=== PATIENT | female | born 1985 | race Caucasian/White ===

== ENCOUNTER 2018-09-28 11:38 | Emergency (ER) | payer BC, SELFPAY ==
[2018-09-28 11:39] VITALS: BP 137/76; PULSE 85; RESP 16; TEMP 36.9; O2SAT 98; BMI 38.3
--- NOTE | 2018-09-28 12:00 | CT_ITS ---
STUDY: CT BRAIN WITHOUT CONTRAST REASON FOR EXAM: Female, 33 years old. Headache. RADIATION DOSAGE (If Supplied By Facility): CTDIvol = ( 44.99 ) mGy, DLP = ( 796.11 ) mGycm TECHNIQUE: Transaxial CT imaging of the brain was performed without administration of intravenous contrast material. Individualized dose optimization techniques were used for this CT. COMPARISON: None. FINDINGS: Normal soft tissue structures. Normal calvarium. Normal size ventricles and extra-axial spaces for the patient's age. Normal white matter tracts of the cerebral hemispheres. Normal basal ganglia and thalami. Normal brainstem. Normal cerebellum. There is no intracranial hemorrhage. There are no findings of an acute ischemic infarction. Normal visualized paranasal sinuses. CT/Brain/Head without Contrast IMPRESSION: Normal unenhanced CT scan of the brain. Electronically Signed: Miguel Wesley MD at 13:07 EST Tel [phone], Service support ,
[2018-09-28] MEDS: Ketorolac 30 MG/ML Syringe IV (12:14)
[2018-09-28] MEDS: DiphenhydrAMINE 50 MG/ML Syringe IV (12:14)
[2018-09-28] MEDS: Metoclopramide 10 MG/2 ML Vial IV (12:14)
[2018-09-28] MEDS: 0.9% Normal Saline 1,000 ML 999 ML IV (12:15)
--- NOTE | 2018-09-28 13:16 | ED.DCSUM_ITS ---
- ER Visit Summary Date of Service: 09/28/18 Chief Complaint: Headache History of Present Illness: The patient is a 33 F with no primary care physician. She reports that she woke up this morning with spots in her vision. She states that these have now resolved. However, she has a headache that began at the same time. Is gradually gotten worse. It was 10 out of 10 at worst and 6 out of 10 currently. She describes it as aching pain right side of her head as well as the right side of her face and jaw. States she has photophobia with it. She is taken ibuprofen without relief. She denies any recent injury to her head. No dental pain. No sensitivity to hot or cold temperatures. Physical Examination: Vitals: Stable. Afebrile. General: Well-nourished and well-developed. Head: Normocephalic atraumatic. Dental: No facial swelling or edema. No pain with percussion of her teeth. No focal abscess. No trismus. No edema of the floor of her mouth. Neck: Supple, no lymphadenopathy. No JVD. Nontender. Cardiovascular: Regular rate and rhythm. No murmurs. Respiratory: No respiratory distress. Clear to auscultation bilaterally. Abdominal: Soft, nontender, nondistended, normal bowel sounds. No guarding, rebound, or peritoneal signs. Back: Nontender. Extremities: Nontender, no edema. Skin: Normal color, no rash. Neurologic: Alert and oriented ?3. Cranial nerves II through XII are intact. Normal strength and sensation. Psych: Normal affect. Test Results: CT brain shows no acute disease. Emergency Department Course and Treatment: Patient was treated Toradol, Benadryl, and Reglan IV. She had significant relief. Treatment Plan: Patient will be discharged symptomatic care. Instructed for Dr. Deandre Snell 1-2 days if not improving. Does have a family history of migraines. She has not had a headache like this previously or been diagnosed with migraines. Return to the emergency department for any worsening symptoms. Disposition: To home in improved and stable condition. Impression: 1. Cephalgia. This note was generated with [employer] dictation software. It may contain incorrect words, spelling, and punctuation that were not noted in review of the chart prior to signing ED Disposition - Plan for ED Patient: Disposition: Home or Assisted Living Chief Complaint: Cellulitis Instructions: ED Cephalgia Unspecified Referrals: Deandre Snell MD [STAFF PHYSICIAN] - 1-2 Days if not improving
== END 2018-09-28 13:23 | disposition home or self-care (01) ==
PROVIDERS: Emergency Provider Emergency Medicine
DX: R51 Headache (principal); H53.149 Visual discomfort, unspecified; H53.8 Other visual disturbances; R11.0 Nausea
CPT/HCPCS: 70450; 96361; 96374; 96375; 99282; J7030; A4216

== ENCOUNTER 2022-10-20 18:57 | Emergency (ER) | payer MEDICAID, SELFPAY ==
[2022-10-20 18:59] VITALS: BP 128/95; PULSE 75; RESP 16; TEMP 36.8; O2SAT 100; BMI 38.0
[2022-10-20 19:27] LABS: Mucous, Urine 0 SEEN /hpf (<or=2+)
[2022-10-20 19:30] LABS: Absolute Lymphocyte Count 2.08 X10^3/uL (0.83-4.51); Basophil# 0.02 X10^3/uL; Basophil% 0.3 % (0-1); Color, Urine Yellow (Yellow); Eosinophil# 0.03 X10^3/uL; Eosinophils% 0.4 % (0-5); Glucose, Dipstick Normal (Normal); Hematocrit 41.5 % (37-47); Hemoglobin 13.7 g/dL (12.0-15.0); Ketone-Dipstick 5 mg/dl (Negative); Leukocyte Esterase-Dipstick 500 /ul (Negative); Lymphocyte # 2.08 X10^3/ul (0.83-4.51); Lymphocyte % 27.6 % (19-41); Mean Corpuscular Hgb 29.8 pg (27.0-32.0); Mean Corpuscular Volume 90.4 fL (81-99); Mean Platelet Vol. 11.1 fl (6.2-12.0); Monocyte# 0.37 X10^3/uL; Monocyte% 4.9 % (0-10); NRBC Flagged by Analyzer 0 % (0-5); Neutrophil # 5.01 X10^3/uL (2.7-7.7); Neutrophil % 66.5 % (47-70); Nitrite-Dipstick Negative (Negative); Occult Blood-Urine 25 /ul (Negative); Platelet Count 287 K/mm3 (150-450); Protein-Dipstick 30 mg/dl (Negative); RBC Distribution Width CV 12.1 % (11.6-14.6); RBC Distribution Width SD 40.1 fl (35.1-43.9); Red Blood Count 4.59 M/mm3 (4.2-5.4); Specific Gravity, Urine 1.025 (1.002-1.030); Urine Bilirubin Dipstick Negative (Negative); Urine Clarity Sl. Cloudy (Clear); Urine Urobilinogen Normal (Normal); White Blood Count 7.5 K/mm3 (4.4-11.0)
[2022-10-20 19:39] LABS: Internal QC Validated? YES +Cl - CLEAR BKGD; Pregnancy, Serum, hCG Quali. NEGATIVE Negative
[2022-10-20 19:44] LABS: Anion Gap 5 (5-15); BUN 13 mg/dL (7-18); BUN/Creat Ratio 13.1 RATIO (10-20); Calcium,Total 9.4 mg/dL (8.5-10.1); Chloride 109 mmol/L (98-107); Creatinine, Serum 0.99 mg/dL (0.55-1.02); EST Glomerular Filtration Rate 66 mL/min (>60); Est Glom Filt Rate - Afr Amer 80 mL/min (>60); Estimated Creatinine Clearance 63.74 ml/min; Glucose 105 mg/dL (74-106); Potassium 3.5 mmol/L (3.5-5.1); Sodium Level 141 mmol/L (136-145)
[2022-10-20 19:45] LABS: Red Blood Cells-Urine 0-5 SEEN /hpf (0-5); Squamous Epithelial Cells - UA 0-5 SEEN /hpf (5-10); White Blood Cells 0-5 SEEN /hpf (0-5)
[2022-10-20 19:46] LABS: Bacteria 1+ /hpf (None Seen)
--- NOTE | 2022-10-20 22:18 | CT_ITS ---
INDICATION: Nausea and vomiting. Intermittent pain for one month. EXAMINATION: CT ABDOMEN AND PELVIS WITH CONTRAST - CT Abdomen And Pelvis W/ Contrast Injection TECHNIQUE: Helically acquired images were obtained of the abdomen and pelvis following IV contrast. A radiation dose optimization technique was used for this scan. IV Contrast dosage and agent: 100 mL of Isovue 370 Oral contrast: None. COMPARISON: None. FINDINGS: LOWER CHEST: Lung bases are clear. No cardiomegaly or pericardial effusion. Question nodule in the lateral right lung breasts. LIVER: Mild hepatomegaly without focal mass. GALLBLADDER AND BILIARY TREE: Status post cholecystectomy. No intra- or extrahepatic biliary ductal dilation. PANCREAS: No focal cystic or solid mass. SPLEEN: Normal size without focal cystic or solid mass. ADRENAL GLANDS: No nodules. KIDNEYS AND URETERS: Normal renal size and position. No hydronephrosis. Normal visualized ureters. PERITONEUM: No ascites or free air. No other fluid collection. BOWEL: Normal stomach. Normal small bowel. Normal colon. Normal appendix. LYMPH NODES: No enlarged mesenteric or retroperitoneal lymph nodes. VESSELS: Normal abdominal aorta. Normal IVC. URINARY BLADDER: Unremarkable. REPRODUCTIVE ORGANS: Normal uterus. No adnexal mass. ABDOMINAL WALL: Small umbilical hernia of omental fat. The abdominal wall is otherwise unremarkable. BONES: No lytic or blastic abnormality. CT/Abdomen/Pelvis W IV Cont ONLY IMPRESSION: 1. Mild hepatomegaly without focal mass. 2. Otherwise normal CT of the abdomen and pelvis. 3. Question nodular density in the lateral right lung breast. Correlation with ultrasound could be performed on a nonemergent basis if there is clinical concern. Electronically Signed: Rolo Hudson DO at 22:39 EST ,
--- NOTE | 2022-10-20 22:19 | ED.VIS.GI ---
HPI HPI - GI History of Present Illness Chief Complaint: Abd Pain Narrative Narrative: 37-year-old female who denies significant past medical history presents with epigastric and lower quadrant abdominal pain that she has had for the last month. She states she becomes nauseated every time she eats. Yesterday she had epigastric pain and became nauseated. She was able to eat today. She had a taco at 6 PM. She states she had an episode like this 2 years ago where she lost a lot of weight because of it. However, she feels it starting up again over the last month but has not noticed any significant weight loss. She presents because of the nausea when she eats and the pain. She denies any fever or chills. No dysuria or hematuria, no other symptoms. PFSH PFSH Home Medications ondansetron 4 mg disintegrating tablet 4 mg PO Q6H PRN nausea and vomiting #20 tabs 10/20/22 [Rx Last Taken Unknown] Allergy/AdvReac Type Severity Reaction Status Date / Time No Known Allergies Allergy Verified 10/20/22 19:01 Social History Smoking Status: Current every day smoker tobacco type: e-cigarettes ROS ROS ED ROS Narrative Constitutional: No fever, no chills. HEENT: No sore throat. No neck pain. No loss of vision. No rhinorrhea. Cardiovascular: No chest pain. No palpitations. No pedal edema. Respiratory: No cough, no shortness of breath. Abdominal: Epigastric and bilateral flank/lower quadrant abdominal pain. Positive nausea. No vomiting. Genitourinary: No dysuria. No hematuria. Musculoskeletal: No myalgias. No arthralgias. Neurologic: No headaches. No dizziness. No lightheadedness. Skin: No rash. No change in color. Psychiatric: No depression. No anxiety. EXAM Physical Exam Narrative Exam Narrative: Afebrile. Vital signs noted. HEENT: Normocephalic. Atraumatic. PERRL, EOMI. Neck soft and supple. No point tenderness or step off. Cardiovascular: Regular rate and rhythm. No murmurs, rubs, or gallops appreciated. Respiratory: No tachypnea. Lungs clear to auscultation bilaterally. Gastrointestinal: Abdomen soft, nontender, with normoactive bowel sounds. No rebound or guarding. Neurological: Awake. Alert. Nonfocal, nonlateralizing. Skin: No rash. Normal color. No pallor. Musculoskeletal: No pedal edema. Full range of motion extremities. Const Vital Signs: 10/20/22 18:59 Temperature 98.2 F Temperature Source Temporal Pulse Rate 75 Respiratory Rate 16 Blood Pressure 128/95 H Blood Pressure Mean 106 Pulse Ox 100 Oxygen Delivery Method Room Air MDM MDM MDM Narrative Medical decision making narrative: Patient has a nonsurgical abdomen. Nursing protocol labs were obtained. CBC shows normal white count of 7.5, hemoglobin 13.7, normal platelet count of 287. Electrolyte panel shows chloride elevated at 109 but normal creatinine and normal BUN. Glucose appropriately elevated at 105 with a normal anion gap. Serum is negative. I will add LFTs and a lipase. I will obtain CT imaging to look for any acute pathology. I discussed with her the possibility of GERD and gastritis. She was told she may need follow-up with her primary care physician. She states she made an appointment for 2 weeks from now, but it was unsure if she could make it until then because of her nausea with eating. She was also told that she may need follow-up with gastroenterology. Urinalysis is negative for infection. Lipase is normal, LFTs are grossly unremarkable except for slightly elevated ALT of 58 which I think is nonspecific. At this point in time, I wrote her for Zofran and she will take [id number] Pepcid or Prilosec. I feel she be discharged safely home with follow-up. Return instructions were reviewed. Disposition is discharged home in stable condition. Lab Data Attestation: I reviewed the patient's lab results. Labs: Laboratory Results - last 24 hr 10/20/22 10/20/22 10/20/22 19:15 19:15 19:15 WBC 7.5 RBC 4.59 Hgb 13.7 Hct 41.5 MCV 90.4 MCH 29.8 MCHC 33.0 RDW Std Deviation 40.1 RDW Coeff of José 12.1 Plt Count 287 MPV 11.1 Immature Gran % (Auto) 0.300 Neut % (Auto) 66.5 Lymph % (Auto) 27.6 [place] % (Auto) 4.9 Eos % (Auto) 0.4 Baso % (Auto) 0.3 Absolute Neuts (auto) 5.0 Absolute Lymphs (auto) 2.08 Nucleated RBC % 0 Sodium 141 Potassium 3.5 Chloride 109 H Carbon Dioxide 27.0 Anion Gap 5 BUN 13 Creatinine 0.99 Estim Creat Clear Calc 63.74 Est GFR (MDRD) Af Amer 80 Est GFR (MDRD) Non-Af 66 BUN/Creatinine Ratio 13.1 Glucose 105 Calcium 9.4 Total Bilirubin Direct Bilirubin AST ALT Alkaline Phosphatase Total Protein Albumin Globulin Lipase Serum , Qual NEGATIVE Urine Color Urine Clarity Urine pH Ur Specific [place] Urine Protein Urine Glucose (UA) Urine Ketones Urine Occult Blood Urine Nitrite Urine Bilirubin Urine Urobilinogen Ur Leukocyte Esterase Urine RBC Urine WBC Ur Squamous Epith Cells Urine Bacteria Urine Mucus 10/20/22 10/20/22 10/20/22 19:15 19:15 19:15 WBC RBC Hgb Hct MCV MCH MCHC RDW Std Deviation RDW Coeff of José Plt Count MPV Immature Gran % (Auto) Neut % (Auto) Lymph % (Auto) [place] % (Auto) Eos % (Auto) Baso % (Auto) Absolute Neuts (auto) Absolute Lymphs (auto) Nucleated RBC % Sodium Potassium Chloride Carbon Dioxide Anion Gap BUN Creatinine Estim Creat Clear Calc Est GFR (MDRD) Af Amer Est GFR (MDRD) Non-Af BUN/Creatinine Ratio Glucose Calcium Total Bilirubin 0.30 Direct Bilirubin 0.10 AST 21 ALT 58 H Alkaline Phosphatase 50 Total Protein 7.7 Albumin 3.9 Globulin 3.8 Lipase 166 Serum , Qual Urine Color Yellow Urine Clarity Sl. Cloudy Urine pH 5.0 Ur Specific [place] 1.025 Urine Protein 30 H Urine Glucose (UA) Normal Urine Ketones 5 H Urine Occult Blood 25 H Urine Nitrite Negative Urine Bilirubin Negative Urine Urobilinogen Normal Ur Leukocyte Esterase 500 H Urine RBC 0-5 SEEN Urine WBC 0-5 SEEN Ur Squamous Epith Cells 0-5 SEEN Urine Bacteria 1+ Urine Mucus 0 SEEN Radiography Diagnostic Testing: Clinical Impression(s) from Imaging Studies Abdomen/Pelvis CT 10/20/22 22:18 IMPRESSION: 1. Mild hepatomegaly without focal mass. 2. Otherwise normal CT of the abdomen and pelvis. 3. Question nodular density in the lateral right lung breast. Correlation with ultrasound could be performed on a nonemergent basis if there is clinical concern. Electronically Signed: Rolo Hudson DO at 22:39 EST , Discharge Plan Triage Chief Complaint: Abd Pain ED Provider: Sajan Koch Dx/Rx/DC Orders Clinical Impression: Abdominal pain, Nausea, Abnormal CT scan Instructions: ED Abdominal Pain Unkn Cause Fem Prescriptions: New ondansetron 4 mg tablet,disintegrating 4 mg PO Q6H PRN (Reason: nausea and vomiting) Qty: 20 0RF Primary Care Provider: Brook Gaviria Referrals: Adilson Cobb DO [Med Staff - Active Staff] - As soon as possible Brook Gaviria MD [Primary Care Provider] - Keep Jared appointment Activity Restrictions/Additional Instructions: Follow-up with your primary care physician as soon as possible. Start a clear liquid diet and advance as tolerated. Avoid spicy foods. You may want to start [id number] Pepcid or Prilosec daily. Additionally, you had an abnormal CT scan finding. There is questionable density possibly in the right breast. Outpatient nonemergent ultrasound can be used for follow-up as ordered by your primary care physician. Mention this during her scheduled appointment. Disposition Disposition: Home, Self Care
[2022-10-20 22:51] LABS: AST(SGOT) 21 U/L (15-37); Alanine Aminotransfer ALT/SGPT 58 U/L (13-56); Albumin, Serum 3.9 g/dL (3.2-5.0); Alkaline Phosphatase 50 U/L (45-117); Globulin 3.8 g/dL (2.2-4.2); Protein, Total 7.7 g/dL (6.4-8.2)
[2022-10-20 22:55] LABS: Lipase 166 U/L (73-393)
[2022-10-20 23:00] VITALS: PULSE 75; RESP 15; O2SAT 97
== END 2022-10-20 23:28 | disposition home or self-care (01) ==
PROVIDERS: Emergency Provider Emergency Medicine; PCP Internal Medicine; Visit Provider Emergency Medicine
DX: R10.13 Epigastric pain (principal); R11.0 Nausea; F17.290 Nicotine dependence, other tobacco product, uncomplicated; R10.30 Lower abdominal pain, unspecified
CPT/HCPCS: 74177; 80048; 80076; 81001; 83690; 84703; 85025; 99283; Q9967; A4216

== ENCOUNTER → 2022-12-08 | Outpatient (CLI) | payer MEDICAID, SELFPAY ==
--- NOTE | 2022-12-08 07:44 | US_ITS ---
STUDY: ABDOMINAL ULTRASOUND - RIGHT UPPER QUADRANT REASON FOR VISIT: Female, 37 years old . Hepatomegaly. TECHNIQUE: Ultrasound evaluation of the right upper quadrant was performed with real-time and static mack-scale imaging. TECHNICAL QUALITY: Adequate. COMPARISON: None. FINDINGS: Liver: The liver is enlarged and measures 20 cm. There is increased echogenicity consistent with fatty infiltration. The bile ducts are within normal limits. There is hepatic color flow. The direction of portal flow is hepatopetal. There is no demonstrated mass lesion. Gallbladder: The patient is status post cholecystectomy. Common Bile Duct (C.B.D.): The common bile duct measures 5.1 mm. Pancreas: Normal size of the head, body of the pancreas. The tail portion is obscured due to overlying bowel gas. There is normal echogenicity of the pancreas. There is no demonstrated pancreatic mass or cyst. Right Kidney: Normal size of the right kidney. The right kidney measures 11.7 cm x 6.4 cm x 4.1 cm. Normal renal cortex. The right cortex measures 1.2 cm. There is no demonstrated renal mass or cyst. There is no right hydronephrosis. US/Abdomen Limited IMPRESSION: Hepatomegaly and fatty infiltration of the liver. The patient is status post cholecystectomy. Electronically Signed: Miguel Wesley MD at 10:34 EST ,
--- NOTE | 2022-12-08 07:44 | US_ITS ---
STUDY: ABDOMINAL ULTRASOUND - ELASTOGRAPHY REASON FOR VISIT: Female, 37 years old. Hepatomegaly. Nausea. TECHNIQUE: Liver stiffness measurements were obtained on a [employer] RS 85 ultrasound machine using a CA 1-7 probe following the SRU guidelines. 3 measurements were obtained using a 2-D-SWE method. The IQR/M was 19% suggesting a quality data set. TECHNICAL QUALITY: Adequate. COMPARISON: Comparison is made with prior sonogram done earlier today. FINDINGS: Liver: There is evidence of hepatomegaly and fatty infiltration of the liver. Median liver stiffness measured 6.4 kPa. US/Elastography Parenchyma/Organ IMPRESSION: Liver stiffness measures 6.4 kPa compatible with F2-F3 (Mild to moderate liver fibrosis) Metavir score. Electronically Signed: Miguel Wesley MD at 10:36 EST ,
[2022-12-08 09:04] LABS: International Normalized Ratio 1.1; Prothrombin Time (Protime)PT. 13.5 SECONDS (11.7-14.9)
[2022-12-08 09:05] LABS: Absolute Lymphocyte Count 1.54 X10^3/uL (0.83-4.51); Absolute Neutrophil Count 4.5 X10^3/uL (2.0-7.7); Basophil# 0.02 X10^3/uL; Basophil% 0.3 % (0-1); Eosinophil# 0.05 X10^3/uL; Eosinophils% 0.8 % (0-5); Hematocrit 42.1 % (37-47); Hemoglobin 13.7 g/dL (12.0-15.0); Lymphocyte # 1.54 X10^3/ul (0.83-4.51); Lymphocyte % 23.8 % (19-41); Mean Corp Hgb Conc 32.5 g/dL (32-36); Mean Corpuscular Hgb 30.2 pg (27.0-32.0); Mean Corpuscular Volume 92.9 fL (81-99); Mean Platelet Vol. 11.2 fl (6.2-12.0); Monocyte# 0.31 X10^3/uL; Monocyte% 4.8 % (0-10); NRBC Flagged by Analyzer 0 % (0-5); Neutrophil # 4.51 X10^3/uL (2.7-7.7); Neutrophil % 69.7 % (47-70); Platelet Count 293 K/mm3 (150-450); RBC Distribution Width CV 12.4 % (11.6-14.6); RBC Distribution Width SD 42.4 fl (35.1-43.9); Red Blood Count 4.53 M/mm3 (4.2-5.4); White Blood Count 6.5 K/mm3 (4.4-11.0)
[2022-12-08 09:12] LABS: Hemoglobin A1c 5.1 % (3.8-5.6)
[2022-12-08 09:18] LABS: Erythrocyte Sedimentation Rate 9 mm/hr (0-30)
[2022-12-08 09:30] LABS: ALB/GLOB Ratio 0.9 RATIO (0.9-2.4); AST(SGOT) 13 U/L (15-37); Alanine Aminotransfer ALT/SGPT 30 U/L (13-56); Albumin, Serum 3.6 g/dL (3.2-5.0); Alkaline Phosphatase 55 U/L (45-117); Anion Gap 6 (5-15); BUN 12 mg/dL (7-18); BUN/Creat Ratio 12.7 RATIO (10-20); CRP 4.72 mg/L (0.0-3.0); Calcium,Total 9.2 mg/dL (8.5-10.1); Chloride 109 mmol/L (98-107); Creatinine, Serum 0.95 mg/dL (0.55-1.02); EST Glomerular Filtration Rate 70 mL/min (>60); Est Glom Filt Rate - Afr Amer 85 mL/min (>60); Ferritin 77 ng/mL (8-252); Glucose 104 mg/dL (74-106); LDH 179 U/L (84-246); Potassium 4.1 mmol/L (3.5-5.1); Protein, Total 7.6 g/dL (6.4-8.2); Sodium Level 140 mmol/L (136-145)
[2022-12-08 09:56] LABS: HIV - WCH Non-Reactive (Nonreactive)
[2022-12-09 14:09] LABS: Anti-Centromere B Ab <0.2 AI (0.0-0.9); Anti-Chromatin <0.2 AI (0.0-0.9); Anti-Jo <0.2 AI (0.0-0.9); Anti-Scleroderma-70 AB <0.2 AI (0.0-0.9); RNP Ab <0.2 AI (0.0-0.9); SJOGREN'S Anti-SS-A test 0.2 AI (0.0-0.9); SJOGREN'S Anti-SS-B test < 0.2 AI (0.0-0.9); Smith Ab <0.2 AI (0.0-0.9)
[2022-12-09 17:19] LABS: Anti-Mitochondrial AB <20.0 Units (0.0-20.0); Anti-dsDNA Ab <1 IU/mL (0-9)
[2022-12-10 22:06] LABS: Angiotensin Convert Enzyme 28 U/L (14-82); Ceruloplasmin 40.7 mg/dL (19.0-39.0); Cytoplasmic Ab (C-ANCA) <1:20 titer (Neg:<1:20); HEPATITIS B SURFACE AG Negative (Negative); Hep C Antibodies Non Reactive (Non Reactive); Hepatitis A IgM Antibody Negative (Negative); Hepatitis B Core AB IgM Negative (Negative)
[2022-12-10 22:21] LABS: AFP, Tumor Marker 3.2 ng/mL (0.0-6.4); Anti-Smooth Muscle ABS 4 Units (0-19); Copper, Serum or Plasma 162 ug/dL (80-158); Haptoglobin 144 mg/dL (33-278); Perinuclear Ab (P-ANCA) <1:20 titer (Neg:<1:20)
== END | disposition home or self-care (01) ==
PROVIDERS: PCP Internal Medicine; Visit Provider Internal Medicine Gastroenterology
DX: R16.0 Hepatomegaly, not elsewhere classified (principal); R11.0 Nausea; K76.0 Fatty (change of) liver, not elsewhere classified; Z90.49 Acquired absence of other specified parts of digestive tract
CPT/HCPCS: 36415; 76705; 76981; 80053; 80074; 82105; 82140; 82164; 82390; 82525; 82728; 83010; 83036; 83516; 83615; 85025; 85610; 85652; 86140; 86225; 86235; 86256; 86703

== ENCOUNTER → 2022-12-12 | Outpatient (CLI) | payer MEDICAID, SELFPAY ==
--- NOTE | 2022-12-12 11:45 | NM_ITS ---
CLINICAL: 37-year-old female with history of chronic nausea. SEMI-SOLID PHASE 99m Tc SULFUR COLLOID GASTRIC EMPTYING STUDY COMPARISON: Abdominal ultrasound report 12/08/2022 FINDINGS: The patient was administered 1.2 mCi of 99m Tc sulfur colloid mixed with oatmeal and consumed per os. Image acquisitions in the anterior-posterior projections were obtained for 60 minutes. There is prompt visualization of the stomach. There is no gastroesophageal reflux identified. The T ? raw data emptying was calculated to be 31.73 minutes, (Normal: 12-56 minutes). NM/Gastric Emptying Study IMPRESSION: 1. NORMAL 99m Tc sulfur colloid semi-solid phase (oatmeal) gastric emptying imaging examination. A. There is normal and preserved semi-solid phase gastric emptying compared to normal controls. (Narciso et al, J Nucl Med Tech 38: 186, 2010). Electronically Signed: Brandin Tang, at 20:38 EST ,
== END | disposition home or self-care (01) ==
LOC: NM 11:45
PROVIDERS: PCP Internal Medicine; Visit Provider Internal Medicine Gastroenterology
DX: R11.0 Nausea (principal)
CPT/HCPCS: 78264; A9541

== ENCOUNTER 2022-12-28 22:56 | Emergency (ER) | payer MEDICAID, SELFPAY ==
[2022-12-28 22:56] VITALS: BP 129/99; PULSE 77; RESP 16; TEMP 36.6; O2SAT 100; BMI 36.5
[2022-12-29] MEDS: Ketorolac 30 MG/ML Syringe IV (00:09)
[2022-12-29] MEDS: 0.9% Normal Saline 1,000 ML 999 ML IV (00:09)
[2022-12-29 00:19] LABS: Absolute Lymphocyte Count 2.95 X10^3/uL (0.83-4.51); Absolute Neutrophil Count 6.2 X10^3/uL (2.0-7.7); Basophil# 0.05 X10^3/uL; Basophil% 0.5 % (0-1); Eosinophil# 0.06 X10^3/uL; Eosinophils% 0.6 % (0-5); Hematocrit 42.8 % (37-47); Hemoglobin 13.9 g/dL (12.0-15.0); Lymphocyte # 2.95 X10^3/ul (0.83-4.51); Lymphocyte % 30.4 % (19-41); Mean Corp Hgb Conc 32.5 g/dL (32-36); Mean Corpuscular Hgb 29.8 pg (27.0-32.0); Mean Corpuscular Volume 91.8 fL (81-99); Mean Platelet Vol. 10.3 fl (6.2-12.0); Monocyte# 0.42 X10^3/uL; Monocyte% 4.3 % (0-10); NRBC Flagged by Analyzer 0 % (0-5); Neutrophil % 63.9 % (47-70); Platelet Count 327 K/mm3 (150-450); RBC Distribution Width CV 12.4 % (11.6-14.6); RBC Distribution Width SD 41.5 fl (35.1-43.9); Red Blood Count 4.66 M/mm3 (4.2-5.4); White Blood Count 9.7 K/mm3 (4.4-11.0)
[2022-12-29 00:41] LABS: Internal QC Validated? YES +Cl - CLEAR BKGD; Pregnancy, Serum, hCG Quali. NEGATIVE Negative
[2022-12-29 00:48] LABS: AST(SGOT) 8 U/L (15-37); Alanine Aminotransfer ALT/SGPT 20 U/L (13-56); Albumin, Serum 3.9 g/dL (3.2-5.0); Alkaline Phosphatase 51 U/L (45-117); Anion Gap 7 (5-15); BUN 14 mg/dL (7-18); BUN/Creat Ratio 16.6 RATIO (10-20); Bilirubin, Direct 0.11 mg/dL (0.00-0.30); Calcium,Total 9.2 mg/dL (8.5-10.1); Chloride 108 mmol/L (98-107); Creatinine, Serum 0.84 mg/dL (0.55-1.02); EST Glomerular Filtration Rate 80 mL/min (>60); Est Glom Filt Rate - Afr Amer 97 mL/min (>60); Estimated Creatinine Clearance 75.12 ml/min; Globulin 3.6 g/dL (2.2-4.2); Glucose 95 mg/dL (74-106); Lipase 212 U/L (73-393); Potassium 3.6 mmol/L (3.5-5.1); Protein, Total 7.5 g/dL (6.4-8.2); Sodium Level 141 mmol/L (136-145)
[2022-12-29 01:00] VITALS: BP 110/79; PULSE 67; RESP 15; O2SAT 100
--- NOTE | 2022-12-29 02:31 | EX.ED.DYSGE1 ---
HPI History of Present Illness Chief Complaint: Abd Pain Narrative Narrative: Patient is a 37-year-old female with recent diagnosis of hepatomegaly and AGRAWAL. She states that over the past week she feels like the left side of her abdomen has been bloated and distended. She denies any recent trauma or excessive activity prior to the pain beginning and she denies any nausea vomiting diarrhea dysuria or constipation. She does admit to a remote history of Felipa cystectomy by laparoscopic surgery 8 years ago but denies any previous history of obstruction. She states that over the past week the symptoms have not resolved spontaneously and secondary to this she comes in for evaluation [facility] Medical History (Updated 12/29/22 @ 02:[address] Tra Bruce DO) Umbilical hernia Home Medications cholecalciferol (vitamin D3) 125 mcg (5,000 unit) tablet 125 mcg PO DAILY 12/28/22 [History Last Taken Unknown] desogestrel 0.15 mg-ethinyl estradiol 0.03 mg tablet (Enskyce) 1 tab PO DAILY 12/28/22 [History Last Taken Unknown] lamotrigine 25 mg tablet 75 mg PO DAILY 12/28/22 [History Last Taken Unknown] Allergy/AdvReac Type Severity Reaction Status Date / Time No Known Allergies Allergy Verified 12/28/22 22:58 Surgical History (Updated 12/28/22 @ 23:32 by Kameron Joshua) Hx of cholecystectomy Social History Smoking Status: Current some day smoker tobacco type: e-cigarettes ROS ROS ED Constitutional Constitutional ED: Denies chills or fever(s) ENT ENT ED: Denies sore throat Cardiovascular Cardiovascular: Denies chest pain Respiratory/Chest Respiratory/Chest: Denies cough or dyspnea Gastrointestinal Gastrointestinal: Reports abdominal pain; Denies constipation, diarrhea, nausea or vomiting Genitourinary Genitourinary ED: Denies dysuria or hematuria Musculoskeletal Musculoskeletal: Denies back pain or myalgias Integumentary Denies rash Neurologic Neurologic: Denies headache(s) Hematologic/Lymphatic Hematologic/Lymphatic: Denies easy bleeding or easy bruising EXAM Physical Exam Const Vital Signs: 12/28/22 22:56 12/29/22 01:00 Temperature 97.8 F Temperature Source Temporal Pulse Rate 77 67 Respiratory Rate 16 15 Blood Pressure 129/99 H 110/79 Blood Pressure Mean 109 89 Pulse Ox 100 100 Oxygen Delivery Method Room Air Room Air Positive well nourished, well developed and obese General Appearance ED: well developed Nutritional Appearance: obese HEENT Reports moist mucous membranes Eyes PERRL and EOMs intact bilaterally General Eye ED: Negative for scleral icterus Neck supple Resp normal respiratory effort and clear to auscultation bilaterally Cardio regular rate and regular rhythm Rate: other Other Details: Radial pulses are plus 2 out of 4 bilaterally are equal and symmetric GI non-distended GI Narrative: Abdomen is soft and nondistended with normal active bowel sounds. There is mild pain with palpation along the left upper quadrant near the 12th rib without voluntary guarding or rigidity. No pulsatile mass or fluid wave. Auscultation: normoactive bowel sounds Palpation: soft Back/Spine no CVA tenderness Extremity normal to inspection Neuro oriented x3 and CN's II-XII intact bilaterally Sensorium / Orientation: alert Psych mental status grossly normal Skin no rashes or lesions noted Skin Narrative: No abrasions or ecchymosis noted General Skin Exam: Negative for jaundice MDM MDM MDM Narrative Medical decision making narrative: Patient presented to the ER with stable vitals and a soft nonsurgical abdomen. She has known history of hepatomegaly and Agrawal but her pain is opposite the liver and on exam there is no obvious findings to suggest cellulitis abscess or ascites. However as she has had persistent pain for the past week I did elect to perform basic laboratory studies and a CT scan. Labs revealed no clinically significant findings and CT scan showed the known hepatomegaly with right-sided constipation but otherwise no acute finding. At this time as overall work-up is negative and there is no signs of infection ileus or obstruction or intestinal mass causing the patient's symptoms I feel she is safe for discharge and can follow-up on an outpatient basis History & Record Review Discussion w/independent historian: Patient and Significant other Lab Data Attestation: I reviewed the patient's lab results. Labs: Laboratory Results - last 24 hr 12/29/22 12/29/22 12/29/22 00:10 00:10 00:10 WBC 9.7 RBC 4.66 Hgb 13.9 Hct 42.8 MCV 91.8 MCH 29.8 MCHC 32.5 RDW Std Deviation 41.5 RDW Coeff of José 12.4 Plt Count 327 MPV 10.3 Immature Gran % (Auto) 0.300 Neut % (Auto) 63.9 Lymph % (Auto) 30.4 [place] % (Auto) 4.3 Eos % (Auto) 0.6 Baso % (Auto) 0.5 Absolute Neuts (auto) 6.2 Absolute Lymphs (auto) 2.95 Nucleated RBC % 0 Sodium 141 Potassium 3.6 Chloride 108 H Carbon Dioxide 26.0 Anion Gap 7 BUN 14 Creatinine 0.84 Estim Creat Clear Calc 75.12 Est GFR (MDRD) Af Amer 97 Est GFR (MDRD) Non-Af 80 BUN/Creatinine Ratio 16.6 Glucose 95 Calcium 9.2 Total Bilirubin 0.30 Direct Bilirubin 0.11 AST 8 L ALT 20 Alkaline Phosphatase 51 Total Protein 7.5 Albumin 3.9 Globulin 3.6 Lipase 212 Serum , Qual NEGATIVE Radiography Diagnostic Testing: Clinical Impression(s) from Imaging Studies Abdomen/Pelvis CT 12/29/22 23:53 IMPRESSION: 1. Moderate stool in the right colon. Otherwise stable exam. 2. Hepatomegaly. Cholecystectomy. Mild mesenteric adenopathy. No evidence of appendicitis. 3. Ovoid right breast nodule again noted. Correlate with exam, any prior workup or appropriate follow-up. Electronically Signed: Shilpa Neal MD at 2:14 EST Reading Location ID and State: [facility] / [place] Tel , Service support , Discharge Plan Triage Chief Complaint: Abd Pain ED Provider: Tra Bruce Dx/Rx/DC Orders Clinical Impression: Hepatomegaly, Nonspecific abdominal pain Instructions: Abdominal Pain Prescriptions: No Action desogestrel-ethinyl estradiol [Enskyce] 0.15-0.03 mg tablet 1 tab PO DAILY lamotrigine 25 mg tablet 75 mg PO DAILY Label Comments: take 1 tablet by mouth once daily for 14 days then 2 once daily for 14 days then 3 TABS DAILY cholecalciferol (vitamin D3) 125 mcg (5,000 unit) tablet 125 mcg PO DAILY Stand Alone Forms: ED Work / School Excuse Primary Care Provider: Brook Gaviria Referrals: Brook Gaviria MD [Primary Care Provider] - Activity Restrictions/Additional Instructions: Your CT scan showed chronic findings today but no obvious signs of infection or blockage. Please follow-up with your family doctor and/or intelligence operations for further testing if symptoms persist and return to the ER should you have any further concerns Disposition Disposition: Home, Self Care Discharge Date/Time: 12/29/22 02:41
--- NOTE | 2022-12-29 23:53 | CT_ITS ---
EXAM: CT ABDOMEN AND PELVIS WITH INTRAVENOUS CONTRAST CLINICAL INDICATION: abd pain TECHNIQUE: Helically acquired images were obtained of the abdomen and pelvis with intravenous contrast. This CT exam was performed using one or more of the following dose reduction techniques: automated exposure control, adjustment of the mA and/or kV according to patient size, and/or use of iterative reconstruction technique. This report was created using [employer] report generation technology. CONTRAST: IV 100mL Isovue-370 RADIATION DOSE: CTDIvol = 24.42 mGy, DLP = 1151.70 mGy-cm COMPARISON: October 20, 2022 FINDINGS: LOWER THORAX: Unremarkable. Lung bases are clear. No cardiomegaly. No significant pericardial effusion. ABDOMEN: LIVER: Similar hepatomegaly or prominent Kortney''s lobe, the right lobe is 19.4 cm craniocaudal. GALLBLADDER AND BILE DUCTS: Cholecystectomy clips. No intra- or extrahepatic biliary ductal dilation. PANCREAS: Unremarkable. No focal cystic or solid mass. SPLEEN: Unremarkable. Normal size without focal cystic or solid mass. ADRENALS: Unremarkable. No nodules. KIDNEYS AND URETERS: Unremarkable. Normal renal size and position. No hydronephrosis. STOMACH AND BOWEL: Mild fluid and gas in the stomach mildly prominent fluid and gas in small bowel. Moderate stool in the right colon, mild-moderate gas and minimal stool in the mid to distal colon. No stomach or bowel distention. No focal inflammatory change. PELVIS: APPENDIX: Small structure thought to be appendix is seen on sagittal images 61 through 64. BLADDER: Unremarkable. REPRODUCTIVE: Unremarkable as visualized. No mass. ABDOMEN and PELVIS: INTRAPERITONEAL SPACE: Unremarkable. No ascites or other fluid collection. No free air. BONES/JOINTS: Unremarkable. No suspicious lytic or blastic abnormality. SOFT TISSUES: Again noted is partially included nodule in the lateral right breast, slightly better included on today''s exam, roughly 1.3 cm x 1.1 cm x 1.8 cm well-circumscribed nodule on the most superior image, possibly fibroadenoma. It is similar size and shape compared to October 20, 2022, sharp and mildly lobulated margins. Slight fat in the umbilicus is stable. No discrete abdominal or pelvic wall hernia. VASCULATURE: Unremarkable. Abdominal aorta is non-dilated. LYMPH NODES: Mild mesenteric adenopathy in the right mid to lower abdomen appears similar. CT/Abdomen/Pelvis W IV Cont ONLY IMPRESSION: 1. Moderate stool in the right colon. Otherwise stable exam. 2. Hepatomegaly. Cholecystectomy. Mild mesenteric adenopathy. No evidence of appendicitis. 3. Ovoid right breast nodule again noted. Correlate with exam, any prior workup or appropriate follow-up. Electronically Signed: Shilpa Neal MD at 2:14 EST ,
== END 2022-12-29 02:41 | disposition home or self-care (01) ==
PROVIDERS: Emergency Provider Emergency Medicine; PCP Internal Medicine; Visit Provider Emergency Medicine
DX: R16.0 Hepatomegaly, not elsewhere classified (principal); R10.9 Unspecified abdominal pain; K75.81 Nonalcoholic steatohepatitis (NASH); F17.210 Nicotine dependence, cigarettes, uncomplicated
CPT/HCPCS: 74177; 80048; 80076; 83690; 84703; 85025; 96361; 96374; 99283; Q9967

== ENCOUNTER 2023-01-30 05:48 | Day surgery (SDC) | payer MEDICAID, SELFPAY ==
--- NOTE | 2023-01-30 | GASB_PTH ---
PATIENT: BRIT HENDERSON LOC: EN U#:[id number] AGE/SX: 37/F ROOM: RE01/30/[address]: Dr. Adilson Cobb DO : 1985 BED: DIS: 01/30/2023 SPEC #: [id number] RECD: 01/30/23 12:56 STATUS: ROSHAN REDilcia #: [id number] XIMENA: 01/30/23 00:[address]: Adilson Cobb DEPT: SURGICAL PATHOLOGY RECD BY: Harish Levi ENTERED: 01/30/23 12:57 SP TYPE: Gastric Bx OTHR DR: Dr. Brook Gaviria MD Tissues: A - Duodenum, NOS B - Duodenum, NOS C - Gastric mucous membrane D - Esophageal mucous membrane Procedures: Special Stain Group II Surgery Specimen Level IV Alcian Blue/PAS (control) HEADER OPERATION: EGD ([facility]) PRE-OP DIAGNOSIS: Nausea, hepatomegaly TISSUE SUBMITTED: A ? Duodenum biopsy, B ? Second portion duodenum biopsy, C ? Gastric body biopsy, D ? Distal esophagus biopsy MICROSCOPIC DIAGNOSIS A. Duodenum, biopsy: Fragments of duodenal mucosa with mild congestion, hemorrhage and Emilie gland hyperplasia. B. Second portion duodenum, biopsy: Fragments of small intestinal mucosa, no pathologic diagnosis. C. Gastric body, biopsy: Minimal gastritis. See microscopic description and comment. D. Distal esophagus, biopsy: Fragments of gastric mucosa with moderate chronic inflammation and minimal acute inflammation. Intestinal metaplasia (goblet cell metaplasia) not identified. See comment. SJ:vish 01/31/2023 COMMENT C. The results of immunohistochemistry for Helicobacter pylori will be reported separately ([id number]). D. Alcian blue/PAS stain with matched control is used in the evaluation of the specimen. MICROSCOPIC DESCRIPTION Slides are reviewed. C. The specimen shows fragments of gastric mucosa with chronic inflammatory cell infiltrates in the lamina propria consisting of lymphocytes and plasma cells, consistent with minimal chronic gastritis. GROSS DESCRIPTION A - Received in fixative is one container labeled with the patient's name and designated duodenum biopsy. The specimen consists of multiple irregular fragments of light avalos soft tissue that in aggregate measure 1.0 x 0.5 x 0.1 cm. The specimen is totally submitted in one cassette. B - Received in fixative is one container labeled with the patient's name and designated second portion duodenum biopsy. The specimen consists of two irregular fragments of light avalos soft tissue that in aggregate measure 0.6 x 0.5 x 0.1 cm. The specimen is totally submitted in one cassette. C - Received in fixative is one container labeled with the patient's name and designated gastric body biopsy. The specimen consists of multiple irregular fragments of light avalos soft tissue that in aggregate measure 1.0 x 0.4 x 0.1 cm. The specimen is totally submitted in one cassette. D - Received in fixative is one container labeled with the patient's name and designated distal esophagus biopsy. The specimen consists of multiple irregular fragments of light avalos soft tissue that in aggregate measure 0.8 x 0.3 x 0.1 cm. The specimen is totally submitted in one cassette. / SJ:rg 01/30/2023 TC:3 [facility]: [id number] [id number], [id number]
[2023-01-30 06:22] VITALS: BP 112/84; PULSE 77; RESP 18; TEMP 36.8; O2SAT 100; BMI 37.5
[2023-01-30 06:22] LABS: Internal QC Validated? YES +Cl - CLEAR BKGD; Pregnancy, Urine Negative Negative
[2023-01-30] MEDS: Lactated Ringers 1,000 ML 15 ML IV (06:33)
--- NOTE | 2023-01-30 07:00 | IMM_PTH ---
PATIENT: BRIT HENDERSON LOC: EN U#:[id number] AGE/SX: 37/F ROOM: RE01/30/[address]: Dr. Adilson Cobb DO : 1985 BED: DIS: 01/30/2023 SPEC #: [id number] RECD: 01/30/23 13:38 STATUS: ROSHAN REQ #: [id number] XIMENA: 01/30/23 07:[address]: Adilson Cobb DEPT: IMMUNOHISTOCHEMISTRY RECD BY: Disha Graf ENTERED: 01/30/23 13:39 SP TYPE: IMMUNO OTHR DR: Dr. Brook Gaviria MD Tissues: C - Stomach, NOS Procedures: H Pylori (initial) PHYSICIAN & INSTITUTION [place] [id number] SPECIMEN INFORMATION: Tissue Source: C ? Gastric body Clinical Info: Nausea, hepatomegaly Specimen Number: [id number] CPT code: 54161 METHODOLOGY: Deparaffinized sections of prefer/formalin-fixed tissue or PAP/DQ stained slides are incubated with monoclonal/polyclonal antibodies/oligonucleotide probes. Localization is made via biotin free immunoperoxidase method. Appropriate controls are performed and reacted as expected. Results on target cell population are indicated in the following table: RESULTS: ANTIBODY / CLONE RESULT Block C H Pylori (polyclonal) negative These tests were developed and their performance characteristics determined by [facility]. They may not have been cleared or approved by the U.S. Food and Drug Administration. The FDA has determined that such clearance or approval is not necessary. The above immunohistochemical/dualISH markers are ordered and reviewed by the Pathologist. INTERPRETATION: C. Gastric body, biopsy: Negative for Helicobacter pylori organisms. SJ:vish 02/01/2023
--- NOTE | 2023-01-30 07:05 | PCM.HP.BLA ---
History and Physical Date of Admission: 01/30/23 7 F who presents to the office today for Initial consult. [facility] ED presentation 10.20. with epigastric and lower abdominal pain for a month with postprandial nausea without weight loss. Similar episode 2 years prior with associated weight loss. 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 ?Biochemical workup?CBC, CMP, lipase, urine, without pertinent abnormalities. ?CT abd/pel?s/p cholecystectomy; mild hepatomegaly without mass; nodular density of right lung breast. OV 2.7.23 with upper GI symptoms as noted above, has required Zofran and acid professor of surgery less frequently. Additionally, has current difficulty with varying stools: historically has loose/soft stools that has recently become more constipation with difficulty with initiation and harder stools. ROS Const Constitutional: No anorexia, fatigue, fever(s), weight change or sleep problems Eyes Eyes: No change in vision ENT ENT: No abnormal hearing, difficulty swallowing, mouth lesions, tongue swelling or throat swelling Resp Respiratory: No cough or shortness of breath Cardio Cardiology: No chest pain at rest, chest pain with exertion, shortness of breath or dyspnea on exertion Gastro GI: No difficulty swallowing Genitourinary-Female: No difficulty urinating or burning urination Musc Musculoskeletal: No joint pain, joint swelling, muscle weakness or decreased muscle mass Skin Skin: No hair loss in leg, yellowing of the eye, itchy eyes, rash, skin ulcer or skin swelling Neuro Neurology: No abnormal hearing, abnormal movements, confusion, unsteady gait/balance or memory loss Psych Psychiatric: No anxiety, No confusion and No memory loss Endo Endocrine: No fatigue or weight change Aller/Imm Allergy/Immunologic: No itchy eyes, throat swelling or tongue swelling Tiago/Lymp Hematologic/Lymphatic: No easy bleeding, easy bruising or enlarged lymph nodes Exam Const General: cooperative and comfortable Nutritional Appearance: average body habitus and well nourished [facility] Head: normal to inspection Ears: hearing grossly normal bilaterally Nose: external nose normal Face and sinus: normal facial exam Mouth: oral mucosae normal Throat: posterior oropharynx normal Eyes General: appearance normal, both eyes and all related structures Neck Neck: normal visual inspection Chest Chest palpation & inspection: normal inspection of the chest and normal palpation of entire chest wall Resp Effort & Inspection: normal respiratory effort Auscultation: Bilateral: Clear to Auscultation Cardio Palpation: normal PMI Rate: regular rate Rhythm: regular rhythm GI Inspection: normal to inspection Auscultation: normal bowel sounds Percussion: normal to percussion Palpation: no hepatosplenomegaly Skin General: no rashes or lesions noted Neuro General: patient alert Extrem General: normal to inspection Psych Affect: normal affect Quality Reporting Tobacco Screening ([facility]) Smoking Status: Current every day smoker Assessment and Plan Assessment and Plan (1) Nausea: ?Status:?Chronic ?Plan: Differential diagnosis nausea does include gastritis, atypical GERD, celiac disease, motility disorder such as gastroparesis.? She should undergo an upper endoscopy to evaluate upper GI tract for diseases such as H. pylori gastritis, peptic ulcer disease and atypical Swanson's esophagus.? She was explained alternatives, risk, benefits including missed any bleeding, infection, sepsis, perforation, need for additional.? She was an ASA 1.? We will also do a biochemical work-up to look for inflammation.? Pending biochemical work-up, further recommendations to follow (2) Hepatomegaly: ?Status:?Chronic ?Plan: The differential diagnosis enlarged fatty liver disease and less likely infiltrative disease such as amyloidosis, sarcoidosis, hemochromatosis.? We will see what the biochemical work-up shows and we will get a FibroScan to see if there is any scarring, fibrosis and less likely necrosis in the liver.? Further recommendations to follow after she has biochemical and imaging studies. ? ? ? Orders: Orders HIV - [facility] Today R11.0 - Nausea, R16.0 - Hepatomegaly, not elsewhere classified ? Comprehensive Metabolic Profil Today R11.0 - Nausea, R16.0 - Hepatomegaly, not elsewhere classified ? CRP Today R11.0 - Nausea, R16.0 - Hepatomegaly, not elsewhere classified ? Ferritin Today R11.0 - Nausea, R16.0 - Hepatomegaly, not elsewhere classified ? LDH Today R11.0 - Nausea, R16.0 - Hepatomegaly, not elsewhere classified ? Hemoglobin A1c Today R11.0 - Nausea, R16.0 - Hepatomegaly, not elsewhere classified ? Prothrombin Time w/INR Today R11.0 - Nausea, R16.0 - Hepatomegaly, not elsewhere classified ? CBC W/Diff, Automated Today R11.0 - Nausea, R16.0 - Hepatomegaly, not elsewhere classified ? Erythrocyte Sed Rate Today R11.0 - Nausea, R16.0 - Hepatomegaly, not elsewhere classified ? Anti-Mitochondrial AB Today R11.0 - Nausea, R16.0 - Hepatomegaly, not elsewhere classified ? PHILIPPE Comprehensive Panel Today R11.0 - Nausea, R16.0 - Hepatomegaly, not elsewhere classified ? Hepatitis Panel Acute Today R11.0 - Nausea, R16.0 - Hepatomegaly, not elsewhere classified ? Angiotensin Convert Enzyme Today R11.0 - Nausea, R16.0 - Hepatomegaly, not elsewhere classified ? AFP, Tumor Marker Today R11.0 - Nausea, R16.0 - Hepatomegaly, not elsewhere classified ? ANCA Today R11.0 - Nausea, R16.0 - Hepatomegaly, not elsewhere classified ? Anti-Smooth Muscle ABS Today R11.0 - Nausea, R16.0 - Hepatomegaly, not elsewhere classified ? Ceruloplasmin Today R11.0 - Nausea, R16.0 - Hepatomegaly, not elsewhere classified ? Copper, Serum or Plasma Today R11.0 - Nausea, R16.0 - Hepatomegaly, not elsewhere classified ? Haptoglobin Today R11.0 - Nausea, R16.0 - Hepatomegaly, not elsewhere classified ? Ammonia Today R11.0 - Nausea, R16.0 - Hepatomegaly, not elsewhere classified ? Abdomen Limited Today R11.0 - Nausea, R16.0 - Hepatomegaly, not elsewhere classified ? Elastography Parenchyma/Organ Today R11.0 - Nausea, R16.0 - Hepatomegaly, not elsewhere classified ? Gastric Emptying Study Today R11.0 - Nausea ? I have examined the patient and the H&P has been reviewed. There are no clinical changes since date of exam.
[2023-01-30 07:30] VITALS: BP 112/84; BP 118/74; PULSE 103; RESP 16; TEMP 36.6; O2SAT 99
--- NOTE | 2023-01-30 07:30 | OP.EGD_ITS ---
Patient Name: Michelle Decker Procedure Date: 01/30/2023 7:12 AM Date of : 1985 Age: 37 Procedure: Upper GI endoscopy Indications: Epigastric abdominal pain, Functional Dyspepsia, Failure to respond to medical treatment Providers: Adilson Cobb DO Referring MD: Adilson Cobb DO Medicines: Monitored Anesthesia Care Patient Profile: This is a 37 year old female. Refer to note in patient chart for documentation of history and physical. Patient has symptoms of chronic abdominal cramping, chronic abdominal distention and chronic epigastric abdominal pain. Complications: No immediate complications. Procedure: Pre-Anesthesia Assessment: - Prior to the procedure, a History and Physical was performed, and patient medications and allergies were reviewed. The risks and benefits of the procedure and the sedation options and risks were discussed with the patient. All questions were answered and informed consent was obtained. Patient identification and proposed procedure were verified by the physician in the pre-procedure area. Mental Status Examination: alert and oriented. Airway Examination: normal oropharyngeal airway and neck mobility. Respiratory Examination: clear to auscultation. CV Examination: normal. Prophylactic Antibiotics: The patient does not require prophylactic antibiotics. Prior Anticoagulants: The patient has taken no previous anticoagulant or antiplatelet agents. After reviewing the risks and benefits, the patient was deemed in satisfactory condition to undergo the procedure. The anesthesia plan was to use monitored anesthesia care (MAC). Immediately prior to administration of medications, the patient was re-assessed for adequacy to receive sedatives. The heart rate, respiratory rate, oxygen saturations, blood pressure, adequacy of pulmonary ventilation, and response to care were monitored throughout the procedure. The physical status of the patient was re-assessed after the procedure. After obtaining informed consent, the endoscope was passed under direct vision. Throughout the procedure, the patient's blood pressure, pulse, and oxygen saturations were monitored continuously. The Endoscope was introduced through the mouth, and advanced to the second part of duodenum. The upper GI endoscopy was accomplished without difficulty. The patient tolerated the procedure well. Moderate Sedation: Moderate (conscious) sedation was personally administered by an anesthesia professional. The following parameters were monitored: oxygen saturation, heart rate, blood pressure, respiratory rate, EKG, adequacy of pulmonary ventilation, and response to care. Scope In: 7:17:33 AM Scope Out: 7:24:06 AM Total Procedure Duration Time 0 hours 6 minutes 33 seconds Findings: Mucosal changes including ringed esophagus were found in the middle third of the esophagus. LA Grade A (one or more mucosal breaks less than 5 mm, not extending between tops of 2 mucosal folds) esophagitis with no bleeding was found 36 to 38 cm from the incisors. Biopsies were taken with a cold forceps for histology. Verification of patient identification for the specimen was done. Estimated blood loss was minimal. A small hiatal hernia was present. Patchy mildly erythematous mucosa without bleeding was found in the gastric body. Biopsies were taken with a cold forceps for histology. Verification of patient identification for the specimen was done. Estimated blood loss was minimal. Scattered moderate inflammation characterized by erosions and erythema was found in the second portion of the duodenum. Biopsies were taken with a cold forceps for histology. Verification of patient identification for the specimen was done. Estimated blood loss was minimal. Impression: - Esophageal mucosal changes consistent with eosinophilic esophagitis. - LA Grade A reflux esophagitis. Biopsied. - Small hiatal hernia. - Erythematous mucosa in the gastric body. Biopsied. - Chronic duodenitis. Biopsied. Recommendation: - Discharge patient to home. - Resume previous diet. - Continue present medications. - Await pathology results. Procedure Code(s): --- Professional --- 11552, Esophagogastroduodenoscopy, flexible, transoral; with biopsy, single or multiple CPT copyright 2017 [employer]. All rights reserved. The codes documented in this report are preliminary and upon aircraft cylinder mechanic review may be revised to meet current compliance requirements. Adilson Cobb DO 01/30/2023 7:30:12 AM This report has been signed electronically. Number of Addenda: 0 Note Initiated On: 01/30/2023 7:12 AM
--- NOTE | 2023-01-30 07:31 | OP.CCLET_ITS ---
01/30/2023 Brook Gaviria [address] [place] [address] Re : Upper GI endoscopy procedure for Michelle Decker Dear Dr. Gaviria This procedure was performed on Monday, January 30, 2023. My impressions and recommendations are as follows: Impressions : - Esophageal mucosal changes consistent with eosinophilic esophagitis. - LA Grade A reflux esophagitis. Biopsied. - Small hiatal hernia. - Erythematous mucosa in the gastric body. Biopsied. - Chronic duodenitis. Biopsied. Recommendations : - Discharge patient to home. - Resume previous diet. - Continue present medications. - Await pathology results. My findings are described in the full procedure note, which is enclosed. If I can be of further assistance, please feel free to contact me at . Sincerely, Adilson Cobb, 01/30/2023 7:30:12 AM This report has been signed electronically.
[2023-01-30 07:35] VITALS: BP 103/76; BP 112/84; PULSE 79; RESP 16; O2SAT 99
[2023-01-30 07:40] VITALS: BP 111/73; BP 112/84; PULSE 64; RESP 16; O2SAT 100
[2023-01-30 07:45] VITALS: BP 112/84; BP 115/80; PULSE 61; RESP 16; TEMP 36.5; O2SAT 100
[2023-01-30 08:04] VITALS: BP 112/84
== END 2023-01-30 08:17 | disposition home or self-care (01) ==
LOC: EN 05:48 → AC 05:49
PROVIDERS: Anesthesiology; PCP Internal Medicine; Referring Provider Internal Medicine; Visit Provider Internal Medicine Gastroenterology
PROC: 0DJ08ZZ Inspection of Upper Intestinal Tract, Via Natural or Artificial Opening Endoscopic (ICD-10-PCS; CPT 43235; principal; 2023-01-30 06:55)
DX: K21.00 Gastro-esophageal reflux disease with esophagitis, without bleeding (principal); F31.9 Bipolar disorder, unspecified; K44.9 Diaphragmatic hernia without obstruction or gangrene; K29.80 Duodenitis without bleeding; K29.70 Gastritis, unspecified, without bleeding; K31.89 Other diseases of stomach and duodenum; F17.200 Nicotine dependence, unspecified, uncomplicated; Z90.49 Acquired absence of other specified parts of digestive tract; Z79.899 Other long term (current) drug therapy
CPT/HCPCS: 43239; 81025; 88305; 88313; 88342; J7120; J2405

== ENCOUNTER → 2023-02-20 | Outpatient (CLI) | payer MEDICAID, SELFPAY ==
[2023-02-22 15:08] LABS: Gastrin, Serum < 10 pg/mL (0-115)
[2023-02-24 00:06] LABS: Beef <0.10 kU/L (Class 0); Chocolate <0.10 kU/L (Class 0); Corn <0.10 kU/L (Class 0); Egg, Whole <0.10 kU/L (Class 0); Milk (Cow) <0.10 kU/L (Class 0); Peanut <0.10 kU/L (Class 0); Pork <0.10 kU/L (Class 0); Soybean <0.10 kU/L (Class 0); Wheat <0.10 kU/L (Class 0)
== END | disposition home or self-care (01) ==
LOC: LAB 08:57
PROVIDERS: PCP Internal Medicine; Referring Provider Internal Medicine Gastroenterology; Visit Provider Internal Medicine Gastroenterology
DX: R19.8 Other specified symptoms and signs involving the digestive system and abdomen (principal); R11.0 Nausea; R16.0 Hepatomegaly, not elsewhere classified
CPT/HCPCS: 36415; 82941; 86003; 86005

== ENCOUNTER → 2023-03-07 | Outpatient (CLI) | payer MEDICAID, SELFPAY ==
--- NOTE | 2023-03-07 12:56 | NM_ITS ---
CLINICAL: 37-year-old female with history of chronic nausea. SEMI-SOLID PHASE 99m Tc SULFUR COLLOID GASTRIC EMPTYING STUDY COMPARISON: Prior semisolid phase gastric emptying dated 12/12/2022 FINDINGS: The patient was administered 1.2 mCi of 99m Tc sulfur colloid mixed with oatmeal and consumed per os. Image acquisitions in the anterior-posterior projections were obtained for 60 minutes. There is prompt visualization of the stomach. There is no gastroesophageal reflux identified. First order kinetics are maintained throughout the duration of the acquisitions. The T ? raw data emptying was calculated to be 78.45 minutes, (Normal: 12-56 minutes) compared to 31.73 minutes defined on the examination dated 12/12/2022. NM/Gastric Emptying Study IMPRESSION: 1. ABNORMAL 99m Tc sulfur colloid semi-solid phase (oatmeal) gastric emptying imaging examination. A. There is delayed semi-solid phase gastric emptying compared to normal controls with maintained first order kinetics throughout all components of the examination. (Narciso et al, J Nucl Med Tech 38: 186, 2010). B. Overall compared to the previous semisolid phase gastric emptying study dated 12/12/2022, there is interim deterioration in semisolid phase gastric emptying as defined above. Electronically Signed: Brandin Tang, at 11:04 EDT ,
== END | disposition home or self-care (01) ==
LOC: NM 12:55
PROVIDERS: PCP Internal Medicine; Referring Provider Internal Medicine Gastroenterology; Visit Provider Internal Medicine Gastroenterology
DX: R19.8 Other specified symptoms and signs involving the digestive system and abdomen (principal); R11.0 Nausea
CPT/HCPCS: 78264; A9541

== ENCOUNTER 2023-05-24 12:12 | Emergency (ER) | payer MEDICAID, SELFPAY ==
[2023-05-24 12:12] VITALS: BP 130/65; PULSE 78; RESP 16; TEMP 36.6; O2SAT 98; BMI 34.7
--- NOTE | 2023-05-24 14:30 | CM.ED ---
Social Work Referral Source: MD Subramanian Referral Reason: resources SW met with MD Subramanian and reviewed presenting symptoms and concerns. recommending resources for patient as she is not struggling with SI, rather depressive symptoms. SW met with patient and introduced herself and role as [facility] SW. Patient agreeable to speak with SW with her brother present. SW utilized open ended questions to gather information about recent events and current issue. Patient denies SI but reports not wanting to keep living life the way it is currently going. Patient explained she started counseling services with [facility] and has an appointment for psychiatry at the end of the month. SW reviewed mental health community resources including Crisis contact information as well as [facility] resource list and a list of healthy coping skills. Patient receptive towards information and reports no other needs at this time. Plan: MH resources provided MARGOTH White
--- NOTE | 2023-05-24 14:48 | EDS_ITS ---
HPI HPI - Psych History of Present Illness Chief Complaint: Mental Health Informant: patient Narrative Narrative: Patient is a 38-year-old female with history of bipolar disorder and depression presenting for continued depression. She especially concerned because she ran out of her Lamictal couple months ago as no one's been able to prescribe it for her. Patient denies any suicidal thoughts. She states that most she just feels like she wants to disappear. She states she would never do anything to harm her self. Denies any history of suicide attempt. States she does have her son at home. Expresses a lot of frustration because she was previously on Lamictal but she missed an appointment through [facility] and they did not schedule her until June. She has since run out of her medication and they will not fill it until she is seen. She did see the counseling center this week and is set up for weekly counseling sessions and has appointment to see their psychiatrist at the end of this month. She was told if she feels that she is getting worse she is to come to the ER. Patient has no thoughts of harming others. Does not want to be hospitalized for her depression. No other complaints or concerns at this time. [facility] Medical History Bipolar disorder Fatty liver Smoker Umbilical hernia Home Medications cholecalciferol (vitamin D3) 125 mcg (5,000 unit) tablet 125 mcg PO DAILY 12/28/22 [History Last Taken Unknown] desogestrel 0.15 mg-ethinyl estradiol 0.03 mg tablet (Enskyce) 1 tab PO DAILY 12/28/22 [History Last Taken 01/30/23] lamotrigine 25 mg tablet 75 mg PO DAILY 12/28/22 [History Last Taken Unknown] pantoprazole 40 mg tablet,delayed release 40 mg PO BID #60 tabs 02/20/23 [Rx Last Taken Unknown] sucralfate 1 gram tablet 1 g PO QAC #90 tabs 03/03/23 [Rx Last Taken Unknown] lamotrigine 25 mg tablet (Lamictal) 25 mg PO BID 28 days #76 tabs 05/24/23 [Rx Last Taken Unknown] Allergy/AdvReac Type Severity Reaction Status Date / Time No Known Allergies Allergy Verified 05/24/23 12:16 Surgical History Hx of cholecystectomy Social History Smoking Status: Current some day smoker tobacco type: cigarettes and e- cigarettes ROS ROS ED Constitutional Constitutional ED: Denies chills or fever(s) Eyes Eyes: Denies change in vision Respiratory/Chest Respiratory/Chest: Denies cough Gastrointestinal Gastrointestinal: Reports nausea; Denies abdominal pain or vomiting Musculoskeletal Musculoskeletal: Denies arthralgias or myalgias Integumentary Denies rash Neurologic Neurologic: Denies weakness Psychiatric Psychiatric: Reports anxiety and depression; Denies suicidal ideation or suicidal thoughts EXAM Physical Exam Const Vital Signs: 05/24/23 12:12 Temperature 97.8 F Temperature Source Temporal Pulse Rate 78 Respiratory Rate 16 Blood Pressure 130/65 H Blood Pressure Mean 86 Pulse Ox 98 Oxygen Delivery Method Room Air Positive well nourished and well developed General Appearance ED: well developed and NAD HEENT Reports moist mucous membranes Eyes PERRL Neck supple Resp normal respiratory effort Neuro oriented x3 Sensorium / Orientation: alert Motor Exam: muscle tone normal throughout; Negative for general weakness Psych Appearance: grossly normal Attitude: calm Activity / Motor Behavior: avoids eye contact Speech: normal speech Mood & Affect: depressed and tearful Thought Process: normal thought process Thought Content: normal thought content, No suicidality, No homicidality, No delusion(s) and No hallucination(s) Attention / Concentration: attention grossly intact Memory / Cognition: memory grossly intact Insight: insight good Judgement: judgement good Skin Rashes: no rashes MDM MDM MDM Narrative Medical decision making narrative: Patient is evaluated for depression. Patient would like to get back on Lamictal has not been able to see psychiatry. She was on earlier this year. She states she tolerated it well. She does not meet criteria for pink slip/involuntary admission for psychiatric care. She is not interested in voluntary. She is closely following with accountants and already and is set up for close outpatient psychiatric follow-up. I do not think she requires a psychiatric cl earance at this time. She is evaluated by social work as well who does provide her some resources. Her brother is in the room who has no further concerns as well. I did discuss the case with outpatient psychiatry, Dr. Sevilla who from my description feels that restarting Lamictal is appropriate. States that he was started at 25 mg twice a day for 2 weeks and then increase to 50 mg twice a day for 2 weeks. Patient is counseled the importance of following this taper and counseled the signs and symptoms of Paige-Sky syndrome as an adverse reaction. Given return precautions. Discharged home in stable condition. Discharge Plan Triage Chief Complaint: Mental Health ED Provider: Katia Subramanian Dx/Rx/DC Orders Clinical Impression: Depression Instructions: ED Depression Prescriptions: New lamotrigine [Lamictal] 25 mg tablet 25 mg PO BID 28 Days Qty: 76 0RF Rx Instructions: 25 mg twice a day for 2 weeks then increase to 50 mg twice a day for 2 weeks No Action pantoprazole 40 mg tablet,delayed release (DR/EC) 40 mg PO BID Qty: 60 5RF desogestrel-ethinyl estradiol [Enskyce] 0.15-0.03 mg tablet 1 tab PO DAILY lamotrigine 25 mg tablet 75 mg PO DAILY Patient Comments: take 1 tablet by mouth once daily for 14 days then 2 once daily for 14 days then 3 TABS DAILY cholecalciferol (vitamin D3) 125 mcg (5,000 unit) tablet 125 mcg PO DAILY sucralfate 1 gram tablet 1 g PO QAC Qty: 90 0RF Rx Instructions: take one hour before meals and one hour away from other medications. Primary Care Provider: Brook Gaviria Referrals: Counseling,Center [Group of Physicians] - Brook Gaviria MD [Primary Care Provider] - Khurram Sevilla DO [Med Staff - Global Logistics Manager] - As Needed Activity Restrictions/Additional Instructions: If you develop a rash, sores in your mouth or any other concerns please return to the emergency room. Please continue to follow-up with your counselor and ps ychiatrist as we discussed. Disposition Disposition: Home, Self Care Discharge Date/Time: 05/24/23 15:03
== END 2023-05-24 15:03 | disposition home or self-care (01) ==
LOC: ED 15:03
PROVIDERS: Emergency Provider Emergency Medicine; PCP Internal Medicine; Visit Provider Emergency Medicine
DX: F31.9 Bipolar disorder, unspecified (principal); F17.210 Nicotine dependence, cigarettes, uncomplicated; F17.290 Nicotine dependence, other tobacco product, uncomplicated; Z79.899 Other long term (current) drug therapy
CPT/HCPCS: 99282

== ENCOUNTER 2023-06-16 22:04 | Emergency (ER) | payer MEDICAID, SELFPAY ==
[2023-06-16 22:04] VITALS: BP 121/95; PULSE 88; RESP 16; TEMP 36; O2SAT 100; BMI 36.0
--- NOTE | 2023-06-16 22:16 | EX.ED.DYSGE1 ---
HPI History of Present Illness Chief Complaint: Abd Pain Narrative Narrative: Patient presents with epigastric pain, its been ongoing for a few years that got worse tonight. She has a history of hiatal hernia and gastritis. Pain does not radiate into her back. She has no lower abdominal pain. She has no nausea or vomiting. No recent fevers or chills. She is status post a cholecystectomy [facility] Medical History Bipolar disorder Fatty liver GERD (gastroesophageal reflux disease) Smoker Umbilical hernia Home Medications cholecalciferol (vitamin D3) 125 mcg (5,000 unit) tablet 125 mcg PO DAILY 12/28/22 [History Last Taken Unknown] desogestrel 0.15 mg-ethinyl estradiol 0.03 mg tablet (Enskyce) 1 tab PO DAILY 12/28/22 [History Last Taken 01/30/23] lamotrigine 25 mg tablet 75 mg PO DAILY 12/28/22 [History Last Taken Unknown] pantoprazole 40 mg tablet,delayed release 40 mg PO BID #60 tabs 02/20/23 [Rx Last Taken Unknown] sucralfate 1 gram tablet 1 g PO QAC #90 tabs 03/03/23 [Rx Last Taken Unknown] lamotrigine 25 mg tablet (Lamictal) 25 mg PO BID 28 days #76 tabs 05/24/23 [Rx Last Taken Unknown] pantoprazole 40 mg tablet,delayed release 40 mg PO DAILY #60 tabs 06/16/23 [Rx Last Taken Unknown] Allergy/AdvReac Type Severity Reaction Status Date / Time No Known Allergies Allergy Verified 05/24/23 12:16 Surgical History Hx of cholecystectomy Social History Smoking Status: Current some day smoker tobacco type: cigarettes and e-cigarettes ROS ROS ED ROS Narrative Past medical history: Reviewed Medications: Reviewed Social history: Noncontributory Review of systems: All systems negative except as indicated General: No fever ENT: No upper airway congestion, normal voice Neck: No neck pain Cardiovascular: No chest pain Respiratory: No shortness of breath or cough Gastrointestinal: Epigastric pain as in HPI Genitourinary: No dysuria Musculoskeletal: Denies myalgias no difficulty with ambulation Skin: No rash EXAM Physical Exam Narrative Exam Narrative: Physical exam General: Well nourished, Well developed, No Acute Distress Head: Normocephalic, Atraumatic ENT: Moist mucous membranes Neck: Supple, Nontender, No lymphadenopathy Cardiovascular: Regular rate, Regular rhythm Respiratory: No distress, CTA bilaterally Abdomen: Soft, mild epigastric tenderness to palpation. There is no guarding or rebound. Negative Camacho's no pain in the right upper quadrant. There is no pain at McBurney's. No lower abdominal pain at all. Back: Nontender, Normal Inspection. Negative for: CVA tenderness Extremities: Nontender, No edema Skin: Normal color, No rash Neurological: Alert, Normal Strength, Normal Sensation Const Vital Signs: 06/16/23 22:04 Temperature 96.8 F L Temperature Source Temporal Pulse Rate 88 Respiratory Rate 16 Blood Pressure 121/95 H Blood Pressure Mean 103 Pulse Ox 100 Oxygen Delivery Method Room Air MDM MDM MDM Narrative Medical decision making narrative: Chest x-ray read by me as normal MDM: Patient has a normal chest x-ray. She has chronic pain and its been there for a few years, I gave her GI cocktail her pain is improved. I believe she likely has gastritis, she is being seen by GI for this but she has not taken her pantoprazole in quite some time. I will give her a new prescription. I do not believe she has gallbladder is her etiology, she has had a history of cholecystectomy and she does not have any kind of obstructive type a history or physical exam findings. I do not believe blood work including lipase and LFTs is needed. I do not believe she has pancreatitis. I do not believe she needs a CT of the abdomen or pelvis. Since her pain improved after GI cocktail I believe she is stable for discharge. Radiography Diagnostic Testing: Clinical Impression(s) from Imaging Studies Chest X-Ray 06/16/23 22:18 IMPRESSION: No radiographic evidence of acute cardiopulmonary disease. Electronically Signed: Brandan Vargas MD at 22:28 EDT Reading Location ID and State: [facility] / ID Tel , Service support , Discharge Plan Triage Chief Complaint: Abd Pain ED Provider: Xavier Arroyo Dx/Rx/DC Orders Clinical Impression: Gastritis, Hiatal hernia Instructions: ED Gastritis (Adult) Prescriptions: New pantoprazole 40 mg tablet,delayed release (DR/EC) 40 mg PO DAILY Qty: 60 0RF No Action pantoprazole 40 mg tablet,delayed release (DR/EC) 40 mg PO BID Qty: 60 5RF desogestrel-ethinyl estradiol [Enskyce] 0.15-0.03 mg tablet 1 tab PO DAILY lamotrigine 25 mg tablet 75 mg PO DAILY Patient Comments: take 1 tablet by mouth once daily for 14 days then 2 once daily for 14 days then 3 TABS DAILY cholecalciferol (vitamin D3) 125 mcg (5,000 unit) tablet 125 mcg PO DAILY lamotrigine [Lamictal] 25 mg tablet 25 mg PO BID 28 Days Qty: 76 0RF Rx Instructions: 25 mg twice a day for 2 weeks then increase to 50 mg twice a day for 2 weeks sucralfate 1 gram tablet 1 g PO QAC Qty: 90 0RF Rx Instructions: take one hour before meals and one hour away from other medications. Primary Care Provider: Brook Gaviria Referrals: Brook Gaviria MD [Primary Care Provider] - 3-5 Days Disposition Disposition: Home, Self Care
[2023-06-16] MEDS: Mag Hydrox/Al Hydrox/Simeth 30 ML UDC PO (22:18)
--- NOTE | 2023-06-16 22:18 | RAD_ITS ---
INDICATION: epigastric pain EXAMINATION/TECHNIQUE: X-RAY - portable upright AP chest x-ray COMPARISON: None. FINDINGS: LINES/DEVICES: None. LUNGS: No consolidation, edema or effusion. No pneumothorax. MEDIASTINUM AND CARDIOVASCULAR STRUCTURES: Cardiac silhouette not enlarged. Central airways and mediastinal contour are unremarkable. BONES AND SOFT TISSUES: Unremarkable. RAD/Chest 1 View (Portable) IMPRESSION: No radiographic evidence of acute cardiopulmonary disease. Electronically Signed: Brandan Vargas MD at 22:28 EDT ,
== END 2023-06-16 22:47 | disposition home or self-care (01) ==
PROVIDERS: Emergency Provider Emergency Medicine; PCP Internal Medicine; Visit Provider Emergency Medicine
DX: K29.70 Gastritis, unspecified, without bleeding (principal); K44.9 Diaphragmatic hernia without obstruction or gangrene; G89.29 Other chronic pain; F17.210 Nicotine dependence, cigarettes, uncomplicated; K76.0 Fatty (change of) liver, not elsewhere classified
CPT/HCPCS: 71045; 99283

== ENCOUNTER 2023-08-09 11:35 | Day surgery (SDC) | payer MEDICAID, SELFPAY ==
--- NOTE | 2023-08-09 11:48 | HP.PCM_ITS ---
History and Physical Date of Admission: 08/09/23 38 F who presents to the office today for [facility] ED presentation 10.20.22 with epigastric and lower abdominal pain for a month with postprandial nausea without weight loss. Similar episode 2 years prior with associated weight loss. She was discharged without acute finding with Zofran and OCT acid manager of product. ? Biochemical workup CBC, CMP, lipase, urine, without pertinent abnormalities. ? CT abd/pel s/p cholecystectomy; mild hepatomegaly without mass; nodular density of right lung breast. *BGI established .05.14 with upper GI symptoms as noted above, has required Zofran and acid manager of product less frequently. Additionally, has current difficulty with varying stools: historically has loose/soft stools that has recently become more constipation with difficulty with initiation and harder stools. Nausea, EGD. Hepatomegaly, Biochemical workup and imaging. Biochemical workup CBC, ESR, CMP, LDH, Ferritin, A1c, hepatitis, HIV, AMA, ASM, PHILIPPE comp, ANCA, PERICO, AFP, haptoglobin, ammonia, coagulation without pertinent abnormality. CRP H4.72, ceruloplasmin H40.7, Copper H162? LFT AST L13-ALT 30-AP 55 ? US and elastography 12.08.22 hepatomegaly 20cm with fatty infi ltration stiffness measures 6.4kPa ? Gastric emptying study 12.12.22 31.73 minutes (12-56) ? EGD 01.30.23 EOE mucosal changes; LA grade A reflux esophagitis; small hiatal hernia; erythematous gastric body; chronic duodenitis. H.Pylori negative. OV 5.1.23 with ongoing nausea and stomach pain without identifiable trigger or alleviating factor; notes that she feels the need to clear her throat frequently and feels like she will have emesis with this. BM fluctuate between constipation with straining with soft/normal stool approximately 3-4/week with loose stools other days of the week 1-2/day. ? Biochemical gastrin, RAST WNL Contact 02.27.23 with results. Reports ongoing abdominal pain and frequent clearing of her throat. ? Gastric emptying study 03.09.23 78.45 minutes (12-56) Contact, portal 03.14.23 with results. Start gastroparesis diet and management of stress/anxiety. [facility] ED 8.12.15 with depression that has been worsening; establishing with [id number]/psychiatry later this month. No suicidal thoughts but wishes she would disappear. Lamictal earlier this year but prescription has run out and has not had anyone to prescribe it; prescription sent. [facility] ED 06.16.23 with epigastric pain. GI Cocktail provided with improvement of symptoms; likely gastritis, has not been taking her PPI. OV 07.10.23 feels that she continues to have dysphagia with throat clearing a couple times a week. Continues to have nausea and dry heaving. Seeing psychiatry and counseling services; feels her mental health is fair. She has not utilized the gastroparesis diet. Eating 2-3 times a day. ROS Const Constitutional: No anorexia, fatigue, fever(s), weight change or sleep problems Eyes Eyes: No change in vision ENT ENT: No abnormal hearing, difficulty swallowing, mouth lesions, tongue swelling or throat swelling Resp Respiratory: No cough or shortness of breath Cardio Cardiology: No chest pain at rest, chest pain with exertion, shortness of breath or dyspnea on exertion Gastro GI: No difficulty swallowing Genitourinary-Female: No difficulty urinating or burning urination Musc Musculoskeletal: No joint pain, joint swelling, muscle weakness or decreased muscle mass Skin Skin: No hair loss in leg, yellowing of the eye, itchy eyes, rash, skin ulcer or skin swelling Neuro Neurology: No abnormal hearing, abnormal movements, confusion, unsteady gait/balance or memory loss Psych Psychiatric: No anxiety, No confusion and No memory loss Endo Endocrine: No fatigue or weight change Aller/Imm Allergy/Immunologic: No itchy eyes, throat swelling or tongue swelling Tiago/Lymp Hematologic/Lymphatic: No easy bleeding, easy bruising or enlarged lymph nodes Exam Const General: cooperative and comfortable Nutritional Appearance: average body habitus and well nourished HENMT Head: normal to inspection Ears: hearing grossly normal bilaterally Nose: external nose normal Face and sinus: normal facial exam Mouth: oral mucosae normal Throat: posterior oropharynx normal Eyes General: appearance normal, both eyes and all related structures Neck Neck: normal visual inspection Chest Chest palpation & inspection: normal inspection of the chest and normal palpation of entire chest wall Resp Effort & Inspection: normal respiratory effort Auscultation: Bilateral: Clear to Auscultation Cardio Palpation: normal PMI Rate: regular rate Rhythm: regular rhythm GI Inspection: normal to inspection Auscultation: normal bowel sounds Percussion: normal to percussion Palpation: no hepatosplenomegaly Skin General: no rashes or lesions noted Neuro General: patient alert Extrem General: normal to inspection Psych Affect: normal affect Quality Reporting Tobacco Screening ([facility] 138) Smoking Status: Current some day smoker Assessment and Plan Assessment and Plan (1) Nausea: Status: Chronic Plan: I think her nausea is multifactorial. She does vape what I think contributes to a lot of her symptoms. I think this is symptomatic and the patient that has excess gastric acid production as seen on upper endoscopy in the setting of a hiatal hernia and dilated lower esophageal sphincter. We talked about abstinence or decrease the amount of vaping that she does in order to help her underlying issues that involve her upper GI tract. We will see if she has any underlying gastroparesis or motility disorders of the upper GI tract. (2) Hepatomegaly: Status: Chronic Plan: Hepatomegaly with underlying nonalcoholic fatty liver disease. She does not drink any alcohol. She underwent a FibroScan that did show an F2 with a Medicare score of 6.8. That is an F2. We discussed ways in order to decrease her fibrosis score. I would not put her on medicines at this time. We discussed weight loss and other modalities in order to decrease the liver size. We had discussed GLP-1 inhibitors such as semaglutide and Actos which has been proven to decrease the mild liver inflammation and 5 study subsequently. We will address that in the future after we have her work-up completed. (3) Eosinophilic esophagitis: Status: Chronic Plan: We discussed the 2 types of eosinophilic esophagitis being GERD related and not GERD related. We will get a RAST study to see if there is a food allergy associated with it. However in the setting of a dilated lower esophageal sphincter, hiatal hernia and possible gastroparesis I think this is mostly an acid issue. Therefore we will put her on pantoprazole 40 mg p.o. twice daily. (4) Hiatal hernia: Status: Chronic Plan: I think she will need underlying gastric emptying study and weight loss what I think will significantly contribute to her needing to possibly think about doing anything surgical for her hiatal hernia. (5) Alternating constipation and diarrhea: Status: Chronic Plan: I think her alternating diarrhea and constipation is secondary to accelerated gastrocolic reflex and the setting of bile induced reflux esophagitis. We will await her gastric emptying study. I have examined the patient and the H&P has been reviewed. There are no clinical changes since date of exam.
[2023-08-09] MEDS: Lactated Ringers 1,000 ML 15 ML IV (12:14)
[2023-08-09 12:15] VITALS: BP 126/75; PULSE 70; RESP 18; TEMP 36.2; O2SAT 100; BMI 33.5
[2023-08-09 12:22] LABS: Internal QC Validated? YES +Cl - CLEAR BKGD; Pregnancy, Urine Negative Negative; Record Kit Lot#,Urine Preg 667200
--- NOTE | 2023-08-09 12:45 | IMM_PTH ---
PATIENT: BRIT HENDERSON LOC: EN U#:[id number] AGE/SX: 38/F ROOM: RE08/09/[address]: Dr. Adilson Cobb DO : 1985 BED: DIS: 08/09/2023 SPEC #: [id number] RECD: 08/10/23 13:26 STATUS: ROSHAN REQ #: [id number] XIMENA: 08/09/23 12:[address]: Adilson Cobb DEPT: IMMUNOHISTOCHEMISTRY RECD BY: Disha Graf ENTERED: 08/10/23 13:27 SP TYPE: IMMUNO OTHR DR: Dr. Brook Gaviria MD Tissues: B - Stomach, NOS Procedures: H Pylori (initial) PHYSICIAN & INSTITUTION [place] [id number] SPECIMEN INFORMATION: Tissue Source: B - Gastric body Clinical Info: Nausea, hepatomegaly, eosinophilic esophagitis, hiatal hernia, diarrhea/constipation Specimen Number: [id number] CPT code: 60432 METHODOLOGY: Deparaffinized sections of prefer/formalin-fixed tissue or PAP/DQ stained slides are incubated with monoclonal/polyclonal antibodies/oligonucleotide probes. Localization is made via biotin free immunoperoxidase method. Appropriate controls are performed and reacted as expected. Results on target cell population are indicated in the following table: RESULTS: ANTIBODY / CLONE RESULT Block B H Pylori (polyclonal) negative These tests were developed and their performance characteristics determined by [facility]. They may not have been cleared or approved by the U.S. Food and Drug Administration. The FDA has determined that such clearance or approval is not necessary. The above immunohistochemical/dualISH markers are ordered and reviewed by the Pathologist. INTERPRETATION: B. Gastric body, biopsy: Negative for Helicobacter pylori organisms. SHAWN:vish 08/11/2023
--- NOTE | 2023-08-09 12:45 | EGD_PTH ---
PATIENT: BRIT HENDERSON LOC: EN U#:[id number] AGE/SX: 38/F ROOM: RE08/09/[address]: Dr. Adilson Cobb DO : 1985 BED: DIS: 08/09/2023 SPEC #: [id number] RECD: 08/09/23 13:54 STATUS: ROSHAN REDilcia #: [id number] XIMENA: 08/09/23 12:[address]: Adilson Cobb DEPT: SURGICAL PATHOLOGY RECD BY: Shelly Chambers ENTERED: 08/10/23 09:13 SP TYPE: EGD BIOPSY OT DR: Dr. Brook Gaviria MD Tissues: A - Duodenum, NOS B - Gastric mucous membrane C - Esophagus, NOS Procedures: Special Stain Group II Surgery Specimen Level IV Alcian Blue/PAS (control) HEADER OPERATION: EGD with biopsy PRE-OP DIAGNOSIS: Nausea, hepatomegaly, eosinophilic esophagitis, hiatal hernia, alternating diarrhea and constipation TISSUE SUBMITTED: A - Duodenum biopsy, B - Gastric body biopsy, C - Distal esophagus biopsy MICROSCOPIC DIAGNOSIS A. Duodenum, biopsy: Fragments of duodenal mucosa with focal gastric metaplasia. B. Gastric body, biopsy: Mild gastritis. See microscopic description and comment. C. Distal esophagus, biopsy: A fragment of gastroesophageal mucosa with chronic inflammation. Intestinal metaplasia (goblet cell metaplasia) not identified. See comment. SJ:vish 08/11/2023 COMMENT B. The results of immunohistochemistry for Helicobacter pylori will be reported separately ([id number]). C. Alcian blue/PAS stain with matched control is used in the evaluation of the specimen. The specimen predominantly consists of gastric mucosa. MICROSCOPIC DESCRIPTION Slides are reviewed. B. The specimen shows fragments of gastric mucosa with chronic inflammatory cell infiltrates in the lamina propria consisting of lymphocytes and plasma cells, consistent with mild chronic gastritis. GROSS DESCRIPTION A - Received in fixative is one container labeled with the patient's name and designated duodenum biopsy. The specimen consists of two irregular fragments of light avalos soft tissue that in aggregate measure 0.8 x 0.5 x 0.1 cm. The specimen is totally submitted in one cassette. B - Received in fixative is one container labeled with the patient's name and designated gastric body. The specimen consists of two irregular fragments of light avalos soft tissue that in aggregate measure 0.7 x 0.5 x 0.1 cm. The specimen is totally submitted in one cassette. C - Received in fixative is one container labeled with the patient's name and designated distal esophagus. The specimen consists of one irregular fragment of light avalos soft tissue that measures 0.5 x 0.3 x 0.1 cm. The specimen is totally submitted in one cassette. / AM:vish 08/10/2023 TC:3 CPT: 36366 x3, 73904
[2023-08-09 13:20] VITALS: BP 105/72; BP 126/75; PULSE 90; RESP 26; TEMP 37.8; O2SAT 97
--- NOTE | 2023-08-09 13:20 | OP.EGD_ITS ---
Patient Name: Michelle Decker Procedure Date: 08/09/2023 12:16 PM Date of : 1985 Age: 38 Procedure: Upper GI endoscopy Indications: Epigastric abdominal pain, Functional Dyspepsia Providers: Adilson Cobb DO Referring MD: Adilson Cobb DO Medicines: Monitored Anesthesia Care Patient Profile: This is a 38 year old female. Refer to note in patient chart for documentation of history and physical. Patient has symptoms of chronic abdominal cramping, chronic abdominal distention, chronic epigastric abdominal pain and chronic dyspepsia. Complications: No immediate complications. Procedure: Pre-Anesthesia Assessment: - Prior to the procedure, a History and Physical was performed, and patient medications and allergies were reviewed. The patient is competent. The risks and benefits of the procedure and the sedation options and risks were discussed with the patient. All questions were answered and informed consent was obtained. Patient identification and proposed procedure were verified by the physician in the pre-procedure area. Mental Status Examination: alert and oriented. Airway Examination: normal oropharyngeal airway and neck mobility. Respiratory Examination: clear to auscultation. CV Examination: normal. Prophylactic Antibiotics: The patient does not require prophylactic antibiotics. Prior Anticoagulants: The patient has taken no anticoagulant or antiplatelet agents. ASA Grade Assessment: II - A patient with mild systemic disease. After reviewing the risks and benefits, the patient was deemed in satisfactory condition to undergo the procedure. The anesthesia plan was to use monitored anesthesia care (MAC). Immediately prior to administration of medications, the patient was re-assessed for adequacy to receive sedatives. The heart rate, respiratory rate, oxygen saturations, blood pressure, adequacy of pulmonary ventilation, and response to care were monitored throughout the procedure. The physical status of the patient was re-assessed after the procedure. After obtaining informed consent, the endoscope was passed under direct vision. Throughout the procedure, the patient's blood pressure, pulse, and oxygen saturations were monitored continuously. The gastroscope was introduced through the mouth, and advanced to the second part of duodenum. The upper GI endoscopy was accomplished without difficulty. The patient tolerated the procedure well. Scope In: 1:07:51 PM Scope Out: 1:13:46 PM Total Procedure Duration Time 0 hours 5 minutes 55 seconds Findings: Mucosal changes including ringed esophagus and feline appearance were found in the middle third of the esophagus. The Z-line was irregular and was found 37 cm from the incisors. Biopsies were taken with a cold forceps for histology. Verification of patient identification for the specimen was done. Estimated blood loss was minimal. A hiatal hernia was present. Diffuse moderate inflammation characterized by congestion (edema) and erosions was found in the gastric body. Biopsies were taken with a cold forceps for histology. Verification of patient identification for the specimen was done. Estimated blood loss was minimal. Biopsies were taken with a cold forceps for Helicobacter pylori testing. Verification of patient identification for the specimen was done. Estimated blood loss was minimal. Patchy mildly erythematous mucosa without active bleeding and with no stigmata of bleeding was found in the duodenal bulb. Biopsies were taken with a cold forceps for histology. Verification of patient identification for the specimen was done. Estimated blood loss was minimal. Impression: - Esophageal mucosal changes secondary to eosinophilic esophagitis. - Z-line irregular, 37 cm from the incisors. Biopsied. - Hiatal hernia. - Bile gastritis. Biopsied. - Erythematous duodenopathy. Biopsied. Recommendation: - Discharge patient to home. - Resume previous diet. - Continue present medications. - Await pathology results. - Repeat upper endoscopy in 1 year for surveillance. Procedure Code(s): --- Professional --- 72703, Esophagogastroduodenoscopy, flexible, transoral; with biopsy, single or multiple CPT copyright 2021 [employer] [place] [employer] [employer]. All rights reserved. The codes documented in this report are preliminary and upon accounting professor review may be revised to meet current compliance requirements. Adilson Cobb DO 08/09/2023 1:20:09 PM This report has been signed electronically. Number of Addenda: 0 Note Initiated On: 08/09/2023 12:16 PM
--- NOTE | 2023-08-09 13:20 | OP.CCLET_ITS ---
08/09/2023 Brook Gaviria [address] [place] [address] Re : Upper GI endoscopy procedure for Michelle Decker Dear Dr. Gaviria This procedure was performed on Wednesday, August 09, 2023. My impressions and recommendations are as follows: Impressions : - Esophageal mucosal changes secondary to eosinophilic esophagitis. - Z-line irregular, 37 cm from the incisors. Biopsied. - Hiatal hernia. - Bile gastritis. Biopsied. - Erythematous duodenopathy. Biopsied. Recommendations : - Discharge patient to home. - Resume previous diet. - Continue present medications. - Await pathology results. - Repeat upper endoscopy in 1 year for surveillance. My findings are described in the full procedure note, which is enclosed. If I can be of further assistance, please feel free to contact me at . Sincerely, Adilson Cobb, 08/09/2023 1:20:09 PM This report has been signed electronically.
[2023-08-09 13:25] VITALS: BP 101/73; BP 126/75; PULSE 85; RESP 20; O2SAT 100
[2023-08-09 13:30] VITALS: BP 103/79; BP 126/75; PULSE 83; RESP 18; O2SAT 99
[2023-08-09 13:37] VITALS: BP 103/84; BP 126/75; PULSE 78; RESP 18; TEMP 37.4; O2SAT 100
[2023-08-09 13:52] VITALS: BP 126/75
== END 2023-08-09 14:14 | disposition home or self-care (01) ==
LOC: EN 11:36 → AC 11:37
PROVIDERS: Anesthesiology; PCP Internal Medicine; Referring Provider Internal Medicine; Visit Provider Internal Medicine Gastroenterology
PROC: 0DJ08ZZ Inspection of Upper Intestinal Tract, Via Natural or Artificial Opening Endoscopic (ICD-10-PCS; CPT 43235; principal; 2023-08-09 12:40)
DX: K20.0 Eosinophilic esophagitis (principal); F31.9 Bipolar disorder, unspecified; K44.9 Diaphragmatic hernia without obstruction or gangrene; K29.70 Gastritis, unspecified, without bleeding; K31.89 Other diseases of stomach and duodenum; K76.0 Fatty (change of) liver, not elsewhere classified; K30 Functional dyspepsia; G89.29 Other chronic pain; F17.290 Nicotine dependence, other tobacco product, uncomplicated; Z90.49 Acquired absence of other specified parts of digestive tract; Z79.899 Other long term (current) drug therapy
CPT/HCPCS: 43239; 81025; 88305; 88313; 88342; J7120

== ENCOUNTER 2023-11-12 21:33 | Emergency (ER) | payer MEDICAID, SELFPAY ==
[2023-11-12 21:33] VITALS: BP 129/92; PULSE 97; RESP 18; TEMP 36.3; O2SAT 100; BMI 32.3
--- NOTE | 2023-11-12 22:05 | US_ITS ---
INDICATION: bleeding -- LIGHT SPOTTING WITH X 1 DAY -- HCG-403 EXAMINATION: Ultrasound US OB Transvaginal TECHNIQUE: Transvaginal pelvic ultrasound was performed. Grayscale, spectral waveform, and color flow Doppler evaluation of the adnexa. COMPARISON: None. LMP: 10/04/2023 FINDINGS: Uterus measures 8.5 cm length. Normal configuration. No gestational sac identified in the endometrial canal. Tiny cystic structure or collection 0.2 x 0.1 x 0.2 cm in the endometrial canal is nonspecific. The endometrium is not thickened. Nabothian cyst noted in the cervix. Right ovary: 3.3 x 2.0 x 2.7 cm. Complex cyst 1.9 x 1.6 x 1.8 cm likely corpus luteal cyst. Left ovary: 2.6 x 3.1 x 2.2 x 2.6 cm. The ovaries otherwise appear unremarkable with vascular flow demonstrated. No free fluid identified. US/Transvaginal w/Preg US IMPRESSION: No evidence of intrauterine . Differential diagnosis includes early intrauterine , missed , and ectopic . Ectopic is not excluded. Correlate with serial hCG levels and follow-up ultrasound as needed. Electronically Signed: Katrin Fields MD at 0:20 EST ,
--- NOTE | 2023-11-12 22:06 | EDS_ITS ---
HPI HPI - Female History of Present Illness Chief Complaint: Vag Bld, Preg Informant: patient Narrative Narrative: Patient presents with vaginal bleeding in . This is a female. She estimates she is about 5 and half weeks by dates. About an hour or so ago she urinated. After she wiped there was a little blood on the tissue. She did not see blood in the urine. No dysuria. No blood in the stool. She is having no pain discomfort pressure. Not lightheaded or dizzy. She has an appointment with a center for ultrasound on Monday. She has an appointment with an unknown [facility] at [facility] on the . [facility] Medical History Bipolar disorder Difficulty swallowing Fatty liver GERD (gastroesophageal reflux disease) History of hiatal hernia Migraine headache Non-smoker Post traumatic stress disorder (PTSD) Shortness of breath on exertion Allergy/AdvReac Type Severity Reaction Status Date / Time No Known Allergies Allergy Verified 08/03/23 11:44 Surgical History History of esophagogastroduodenoscopy (EGD) Hx of cholecystectomy Social History Smoking Status: Never smoker [facility] ED Constitutional Constitutional ED: Denies chills or fever(s) ENT ENT ED: Denies sore throat Cardiovascular Cardiovascular: Denies chest pain, palpitations or racing heartbeat Respiratory/Chest Respiratory/Chest: Denies cough Gastrointestinal Gastrointestinal: Denies abdominal pain, constipation, diarrhea, melena, nausea or vomiting Genitourinary Genitourinary ED: Reports other Details: See history of present illness. ; Denies dysuria, hematuria or urinary frequency Musculoskeletal Musculoskeletal: Denies myalgias Integumentary Denies rash Hematologic/Lymphatic Hematologic/Lymphatic: Denies easy bleeding or easy bruising EXAM Physical Exam Narrative Exam Narrative: CONSTITUTIONAL: Patient is nontoxic in appearance. The patient looks comfortable. HEENT: No notable trauma. Mucous membranes moist. EYES: No c pallor. CARDIOVASCULAR: Regular rate. Regular rhythm. No notable murmur. No JVD. RESPIRATORY: No respiratory distress. Breathing is unlabored. No wheezes. No rhonchi. No rales. No pain with a deep breath. GASTROINTESTINAL: Not distended. Bowel sounds are normal. No tenderness. No guarding. No rebound. Overall very benign abdomen. GENITOURINARY: No tenderness over the bladder. No CVA tenderness. MUSCULOSKELETAL: Atraumatic. No peripheral edema. No tenderness. No mottling. NEUROLOGICAL: Patient is alert and appropriate. No focal deficit noted. SKIN: No noted rashes. No diaphoresis. PSYCHIATRIC: Patient is calm. Mood is appropriate. Const Vital Signs: 11/12/23 21:33 Temperature 97.4 F L Temperature Source Temporal Pulse Rate 97 Respiratory Rate 18 Blood Pressure 129/92 H Blood Pressure Mean 104 Pulse Ox 100 Oxygen Delivery Method Room Air MDM MDM MDM Narrative Medical decision making narrative: Patient CBC is overall normal with normal hemoglobin and platelets. Patient's quantitative beta-hCG is 403. Patient's last menstrual period is a little uncertain but might be 08 October. This would put her right at 5 weeks. This is a low hormone level for this time. But later in the visit I find that the patient reports having a hormone level of 67 on the 16th of this month. Therefore this is increasing. Patient's blood type is a positive. Patient's urinalysis is negative for blood or signs of infection. Patient's ultrasound shows no definitive intrauterine . They do make note of a tiny cystic structure about 0.1 x 0.2 cm in the endometrial canal that is nonspecific. This could be early gestational sac. I will try to write for outpatient repeat hormone level. She should follow-up with her appointments. If she develops pain heavy bleeding lightheadedness she should return. Lab Data Attestation: I reviewed the patient's lab results. Labs: Laboratory Results - last 24 hr 11/12/23 11/12/23 11/12/23 22:17 22:23 22:41 WBC 6.0 RBC 4.36 Hgb 13.0 Hct 39.2 MCV 89.9 MCH 29.8 MCHC 33.2 RDW Std Deviation 42.2 RDW Coeff of José 12.8 Plt Count 261 MPV 10.4 Immature Gran % (Auto) 0.300 Neut % (Auto) 64.5 Lymph % (Auto) 25.9 [place] % (Auto) 8.0 Eos % (Auto) 1.0 Baso % (Auto) 0.3 Absolute Neuts (auto) 3.9 Absolute Lymphs (auto) 1.55 Nucleated RBC % 0 HCG, Quant 403 H Urine Color Yellow Urine Clarity Sl. Cloudy Urine pH 6.0 Ur Specific [place] 1.015 Urine Protein 15 H Urine Glucose (UA) Normal Urine Ketones Negative Urine Occult Blood 25 H Urine Nitrite Negative Urine Bilirubin Negative Urine Urobilinogen Normal Ur Leukocyte Esterase Negative Urine RBC 0 SEEN Urine WBC 0 SEEN Ur Squamous Epith Cells 0-5 SEEN Urine Bacteria 0 SEEN Urine Mucus 0 SEEN Blood Type A POSITIVE Radiography Diagnostic Testing: Clinical Impression(s) from Imaging Studies Obstetrics Ultrasound 11/12/23 22:05 IMPRESSION: No evidence of intrauterine . Differential diagnosis includes early intrauterine , missed , and ectopic . Ectopic is not excluded. Correlate with serial hCG levels and follow-up ultrasound as needed. Electronically Signed: Katrin Fields MD at 0:20 EST Reading Location ID and State: [address] [place] [address] Tel , Service support , Discharge Plan Triage Chief Complaint: Vag Bld, Preg ED Provider: Vasiliy Benitez Dx/Rx/DC Orders Clinical Impression: Vaginal bleeding during Instructions: Vaginal Bleeding During Other Ambulatory Orders: hCG Titer Quant., Serum (Routine) Timeframe: 20231115 Facility: [facility] - Location: Laboratory Ordered By: Dr. Vasiliy Benitez Primary Care Provider: Brook Gaviria Referrals: Brook Gaviria MD [Primary Care Provider] - Activity Restrictions/Additional Instructions: Follow-up with your to upcoming OB appointments. Disposition Disposition: Home, Self Care
--- OUTSIDE RECORDS SUMMARY | 2023-11-12 22:16 | XMS RPT_ITS | CCD ---
Author Name Unknown Address [address] [place] [address] Organization [facility] Care Team Providers Care Ups Driver Name Role Phone ARMIN LEIGH DO Primary Care Physician [phone] Everette ROBERTS, Brook Primary Care Provider [phone] Everette ROBERTS, Brook Primary Care Provider Everette ROBERTS, Brook Primary Care Provider ALMITA IBARRA Attending Unavailable GANTA, BROOK Referring Unavailable GANTA, BROOK Primary Care Unavailable DB KNUZ Referring Unavailable DB KUNZ Attending Unavailable GANTA, BROOK Primary Care Unavailable LINCOLN FERGUSON Referring Unavailable GANTA, BROOK Primary Care Unavailable GANTA, BROOK Primary Care Unavailable GANTA, BROOK Attending Unavailable DB KUNZ Referring Unavailable GANTA, BROOK Primary Care Unavailable AALIYAH MENDOZA Referring Unavailable GANTA, BROOK Primary Care Unavailable AALIYAH MENDOZA Attending Unavailable GANTA, BROOK Primary Care Unavailable CHRISAALIYAH BUI Referring Unavailable GANTA, BROOK Primary Care Unavailable CHRIS AALIYAH M Referring Unavailable GANTA, BROOK Primary Care Unavailable CHRISAALIYAH RODRÍGUEZ M Attending Unavailable GANTA, BROOK Primary Care Unavailable GANTA, BROOK Primary Care Unavailable LINOCLN FERGUSON Attending Unavailable GANTA, BROOK Primary Care Unavailable CHRISAALIYAH M Referring Unavailable GANTA, BROOK Primary Care Unavailable GANTA, BROOK Primary Care Unavailable GANTA, BROOK Referring Unavailable GANTA, BROOK Primary Care Unavailable GANTA, BROOK Referring Unavailable GAYATHRI DOLAN Referring Unavailable GANTA, BROOK Primary Care Unavailable CHRIS, AALIYAH M Attending Unavailable GANTA, BROOK Primary Care Unavailable Medications Current Medications Medication Drug Class(es) Dates Sig (Normalized) Sig (Original) [id number] 200 actuat albuterol 0.09 mg/actuat metered dose inhaler (6 sources) beta2-Adrenergic Agonist Start: 10-31-2022 End: 09-08-2023 take 2 puff(s) by inhalation every four hours as needed albuterol HFA (PROAIR HFA) 90 mcg/actuation inhaler Inhale 2 Puffs as instructed every 4 hours as needed. 18 g 0 10/31/2022 09/08/2023 Discontinued (Course of therapy completed) Completed/Discontinued Medications Medication Drug Class(es) Dates Sig (Normalized) Sig (Original) ARIPiprazole 2 mg oral tablet (7 sources) Atypical Antipsychotic Start: 01-05-2022 End: 09-14-2022 take 0.5 tablet by mouth once daily, then take 1 tablet by mouth once daily ARIPiprazole (ABILIFY) 2 mg tablet Indications: Anxiety and depression take 1/2 tablet by mouth once daily for 14 days then 1 tablet once daily for 14 days 30 tablet 2 04/04/2022 09/14/2022 Discontinued Problems Active Problems Problem Classification Problem Date Documented Da te Episodic/Chronic Anxiety disorders (8 sources) Mixed anxiety and depressive disorder; Translations: [Anxiety disorder, unspecified] Onset: 11-03-2022 Chronic Conditions associated with dizziness or vertigo (2 sources) Dizziness; Translations: [Dizziness and giddiness] Onset: 09-08-2023 09-08-2023 Episodic Contraceptive and procreative management (2 sources) Patient encounter status; Translations: [Encounter for other general counseling and advice on contraception] Episodic Immunizations and screening for infectious disease (2 sources) Viral screening status; Translations: [Encounter for screening for other viral diseases] Episodic Malaise and fatigue (1 source) Fatigue; Translations: [Other fatigue] Episodic Menstrual disorders (4 sources) Missed period; Translations: [Irregular menstruation, unspecified] Onset: 11-16-2022 Chronic Mood disorders (9 sources) Bipolar I disorder; Translations: [Mood disorder] Onset: 11-03-2022 01-25-2016 Chronic Nausea and vomiting (1 source) Nausea; Translations: [Nausea] Episodic Nonmalignant breast conditions (4 sources) Lump in right breast; Translations: [Unspecified lump in the right breast, unspecified quadrant] Onset: 01-11-2023 Episodic Nutritional deficiencies (2 sources) Vitamin D deficiency, unspecified; Translations: [Avitaminosis D] Onset: 02-01-2023 Chronic Other nervous system disorders (1 source) Other chronic pain; Translations: [Chronic bilateral low back pain with bilateral sciatica] Onset: 09-08-2022 Chronic Other nervous system disorders (1 source) Skin sensation disturbance; Translations: [Other disturbances of skin sensation] Episodic Other nervous system disorders (1 source) Other disturbances of skin sensation; Translations: [Other disturbances of skin sensation] Onset: 09-08-2022 Episodic Other nutritional; endocrine; and metabolic disorders (1 source) Severe obesity; Translations: [Morbid (severe) obesity due to excess calories] Chronic Other nutritional; endocrine; and metabolic disorders (1 source) Excessive weight gain; Translations: [Abnormal weight gain] Episodic Other and delivery including normal (1 source) Encounter for test, result positive; Translations: [Positive test] Onset: 11-07-2023 Episodic Other screening for suspected conditions (not mental disorders or infectious disease) (1 source) Cancer cervix screening status; Translations: [Encounter for screening for malignant neoplasm of cervix] Episodic Residual codes; unclassified (2 sources) Disturbance in sleep behavior; Translations: [Sleep disorder, unspecified] Episodic Spondylosis; intervertebral disc disorders; other back problems (8 sources) Sciatica; Translations: [Sciatica, unspecified side] Onset: 09-08-2022 Episodic Past or Other Problems Problem Classification Problem Date Documented Da te Episodic/Chronic Nutritional deficiencies (1 source) Iron deficiency; Translations: [Iron deficiency] Onset: 06-16-2023 Episodic Other aftercare (1 source) Other mcc (current) drug therapy; Translations: [On angiotensin receptor blockers (ARB)] Onset: 06-16-2023 Episodic Results Test Name Value Interpretation Reference Range Facil ity Vital Signs Date Time Vital Sign Value Performing Clinician Juliethi lity 09-08-2023 08:01-0500 Body weight 84.82 kg Aaliyah Older POLYSOMNOGRAPHY TECHNICIAN.COORDINATE MEASURING EQUIPMENT OPERATOR Work Phone: [facility] 09-08-2023 08:01-0500 Diastolic blood pressure 87 mm[Hg] Aaliyah Older POLYSOMNOGRAPHY TECHNICIAN.COORDINATE MEASURING EQUIPMENT OPERATOR Work Phone: [facility] 09-08-2023 08:01-0500 Heart rate 80 /min Aaliyah Older POLYSOMNOGRAPHY TECHNICIAN.COORDINATE MEASURING EQUIPMENT OPERATOR Work Phone: [facility] 09-08-2023 08:01-0500 Systolic blood pressure 136 mm[Hg] Aaliyah Older POLYSOMNOGRAPHY TECHNICIAN.COORDINATE MEASURING EQUIPMENT OPERATOR Work Phone: [facility] 12-09-2022 10:21-0500 Body height 160 cm Brook Gaviria MD Work Phone: [facility] 12-09-2022 10:21-0500 Body temperature 99.61 [degF] Brook Gaviria MD Work Phone: [facility] 12-09-2022 10:21-0500 Body weight 95.71 kg Brook Gaviria MD Work Phone: [facility] 12-09-2022 10:21-0500 Diastolic blood pressure 70 mm[Hg] Brook Gaviria MD Work Phone: [facility] 12-09-2022 10:21-0500 Heart rate 69 /min Brook Gaviria MD Work Phone: [facility] 12-09-2022 10:21-0500 Respiratory rate 12 /min Brook Gaviria MD Work Phone: [facility] 12-09-2022 10:21-0500 SaO2% (BldA) [Mass fraction] 99 % Brook Gaviria MD Work Phone: [facility] 12-09-2022 10:21-0500 Systolic blood pressure 116 mm[Hg] Brook Gaviria MD Work Phone: [facility] 11-15-2022 13:16-0500 Body temperature 97.81 [degF] Lopez DEAN Work Phone: [facility] 11-15-2022 13:16-0500 Body weight 96.07 kg Lopez DEAN Work Phone: [facility] 11-15-2022 13:16-0500 Diastolic blood pressure 72 mm[Hg] Krislyn Aberegg PA Work Phone: [facility] 11-15-2022 13:16-0500 Heart rate 111 /min Krislyn Aberegg PA Work Phone: [facility] 11-15-2022 13:16-0500 Respiratory rate 18 /min Krislyn Aberegg PA Work Phone: [facility] 11-15-2022 13:16-0500 Systolic blood pressure 110 mm[Hg] Krislyn Aberegg PA Work Phone: [facility] 09-16-2022 15:27-0500 Body height 162 cm Salud Scruggs APRN.COORDINATE MEASURING EQUIPMENT OPERATOR Work Phone: [facility] 09-16-2022 15:27-0500 Body weight 99.52 kg Salud Scruggs APRN.COORDINATE MEASURING EQUIPMENT OPERATOR Work Phone: [facility] 09-16-2022 15:27-0500 Diastolic blood pressure 80 mm[Hg] Salud Scruggs APRN.COORDINATE MEASURING EQUIPMENT OPERATOR Work Phone: [facility] 09-16-2022 15:27-0500 Respiratory rate 20 /min Salud Scruggs APRN.COORDINATE MEASURING EQUIPMENT OPERATOR Work Phone: [facility] 09-16-2022 15:27-0500 Systolic blood pressure 110 mm[Hg] Salud Scruggs APRN.COORDINATE MEASURING EQUIPMENT OPERATOR Work Phone: [facility] 09-14-2022 15:40-0500 Body height 162.6 cm Brook Gaviria MD Work Phone: [facility] 09-14-2022 15:40-0500 Body temperature 99.81 [degF] Brook Gaviria MD Work Phone: [facility] 09-14-2022 15:40-0500 Body weight 97.98 kg Brook Gaviria MD Work Phone: [facility] 09-14-2022 15:40-0500 Diastolic blood pressure 72 mm[Hg] Brook Gaviria MD Work Phone: [facility] 09-14-2022 15:40-0500 Heart rate 68 /min Brook Gaviria MD Work Phone: [facility] 09-14-2022 15:40-0500 Respiratory rate 14 /min Brook Gaviria MD Work Phone: [facility] 09-14-2022 15:40-0500 SaO2% (BldA) [Mass fraction] 98 % Brook Gaviria MD Work Phone: [facility] 09-14-2022 15:40-0500 Systolic blood pressure 120 mm[Hg] Brook Gaviria MD Work Phone: [facility] 09-08-2022 09:17-0500 Heart rate 82 /min Almita Kearney POLYSOMNOGRAPHY TECHNICIAN.COORDINATE MEASURING EQUIPMENT OPERATOR Work Phone: [facility] 09-08-2022 09:17-0500 Respiratory rate 16 /min Almita Kearney POLYSOMNOGRAPHY TECHNICIAN.COORDINATE MEASURING EQUIPMENT OPERATOR Work Phone: [facility] 09-08-2022 09:17-0500 SaO2% (BldA) [Mass fraction] 99 % [facility] POLYSOMNOGRAPHY TECHNICIAN.COORDINATE MEASURING EQUIPMENT OPERATOR Work Phone: [facility] 07-12-2022 15:58-0400 Body height 162.6 cm Brook Gaviria MD Work Phone: [facility] 07-12-2022 15:58-0400 Body temperature 99.39 [degF] Brook Gaviria MD Work Phone: [facility] 07-12-2022 15:58-0400 Body weight 96.16 kg Brook Gavirai MD Work Phone: [facility] 07-12-2022 15:58-0400 Diastolic blood pressure 60 mm[Hg] Brook Gaviria MD Work Phone: [facility] 07-12-2022 15:58-0400 Heart rate 101 /min Brook Gaviria MD Work Phone: [facility] 07-12-2022 15:58-0400 Respiratory rate 12 /min Brook Gaviria MD Work Phone: [facility] 07-12-2022 15:58-0400 SaO2% (BldA) [Mass fraction] 99 % Brook Gaviria MD Work Phone: [facility] 07-12-2022 15:58-0400 Systolic blood pressure 116 mm[Hg] Brook Gaviria MD Work Phone: [facility] Encounters Encounter Date Encounter Type Care Provider Facility Start: 11-07-2023 End: 11-08-2023 ambulatory AALIYAH [facility] Facility:[facility] Start: 10-31-2023 End: 10-31-2023 ambulatory [facility] Facility:[facility] Start: 10-06-2023 End: 10-06-2023 ambulatory [facility] Facility:[facility] Start: 09-08-2023 End: 09-09-2023 ambulatory [facility] Facility:[facility] Start: 09-08-2023 End: 09-08-2023 Patient encounter procedure Aaliyah Pineda POLYSOMNOGRAPHY TECHNICIAN.COORDINATE MEASURING EQUIPMENT OPERATOR Work Phone: [facility] Procedures Date Procedure Procedure Detail Performing Clinician Start: 01-11-2023 Digital breast tomos ynthesis unilateral [place] Gaviria MD Work Phone: Start: 11-15-2022 Urine test visual color cmprsn meths Krislyn P Aberegg PA Work Phone: Start: 01-05-2022 Adult depression scr eening assessment Americo Landa APRN.COORDINATE MEASURING EQUIPMENT OPERATOR Work Phone: Cholecystectomy AALIYAH OLDER CN P Plan of Treatment Date Care Activity Detail Author Start: 09-16-2025 HPV TESTING HPV TESTING [facility] Start: 09-16-2025 PAP TESTING PAP TESTING [facility] Start: 09-08-2023 End: 12-08-2023 CBC W Auto Differential panel - Blood [facility] Work Phone: Immunizations Immunization Date Immunization Notes Care Provider Fa kodi 06-29-2021 COVID-19 vaccine (AMY) Americo Landa APRN.[facility] Work Phone: [facility] Work Phone: Payers Date Payer Category Payer Medicaid [place] [employer] [id number] 2020-Present [phone] [address] [place] [address] Medicaid [id number] 2020 Medicaid [id number] 2020 Medicaid [id number] Social History Date Type Detail Facility Start: 11-28-2017 End: 11-03-2022 Never smoked tobacco (finding) [facility] Sex Assigned At [facility] Start: 11-28-2017 End: 11-03-2022 Tobacco use and exposure Smokeless tobacco non-user [facility] Work Phone: Start: 01-05-2022 End: 09-08-2023 Alcohol intake Current non-drinker of alcohol (finding) [facility] Start: 04-28-2021 End: 09-12-2022 History SDOH Alcohol Frequency 2 [facility] Start: 04-28-2021 End: 09-12-2022 History SDOH Alcohol Std Drinks 1 [facility] Start: 04-28-2021 End: 09-12-2022 History SDOH Social Connections Phone 5 [facility] Start: 04-28-2021 History SDOH Social Connections Get Together 4 [facility] Start: 04-28-2021 End: 09-12-2022 History SDOH Social Connections Living 6 [facility] Start: 04-28-2021 History SDOH Physica l Activity MPS 15 [facility] Start: 04-28-2021 Education 12 [facility] Start: 1985 Sex Assigned At Not on file C [facility] Start: 07-02-2022 End: 09-14-2022 Exposure to SARS-CoV-2 (event) Not sure [facility] Work Phone: Start: 09-12-2022 History SDOH Alcohol Std Drinks 0 [facility] Start: 09-12-2022 History SDOH Social Connections [facility] [address] [facility] Start: 09-12-2022 History SDOH Physica l Activity DPW 3 [facility] Start: 11-03-2022 Tobacco Comment vapes daily [facility] Start: 09-12-2022 End: 11-04-2022 History of Social function [facility] Start: 09-12-2022 End: 11-04-2022 Social connection and isolation panel [facility] How often do you att end advent or rastafarian services? Patient refused [facility] Do you belong to any clubs or organizations such as advent groups, unions, fraternal or athletic groups, or school groups? No [facility] Are you now , , , , never or living with a partner? [facility] How often to you hav e a drink containing alcohol? Monthly or less [facility] How often do you hav e 6 or more drinks on 1 occasion? Never [facility] Do you feel stress - tense, restless, nervous, or anxious, or unable to sleep at night because your mind is troubled all the time - these days [OSQ] Only a little [facility] (I/We) worried wheth er (my/our) food would run out before (I/we) got money to buy more. DK or Refused [facility] Start: 08-17-2021 Gender identity Identifies as female gender (finding) [facility] Clinical Notes 04-04-2022 to 11-07-2023 Aaliyah Pineda APRN.CNP - 09/08/2023 8:05 AM ESTTelephone Encounter - Shannan Wellington LPN - 04/17/2023 11:06 AM EDTTelephone Encounter - Donna Qureshi MD - 04/13/2023 9:21 PM EDTPatient Instructions Note Date & Type Note Facility 11-07-2023 Note HNO ID: [id number] Author: AALIYAH MENDOZA APRN.CNP Service: ? Author Type: Nurse Practitioner Type: Progress Notes Filed: 11/07/2023 09:26 Note Text: CC: Patient presents with: possible HPI Michelle Iyer is a 38 year old female who presents today for above. Patient reports missed period, nausea, urinary frequency and breast tenderness. She missed a few doses of her control last month. She has taken a few home tests that were faintly positive and then a digital test this morning was positive as well. She is requesting a blood test to confirm. Relay Record Clerk with DUNIA Ramirez. Review of Systems See HPI PAST MEDICAL HISTORY Diagnosis Date NEGATIVE MEDICAL HISTORY PAST SURGICAL HISTORY Procedure Laterality Date BREAST BIOPSY NEEDLE RIGHT Right 09/17/2021 CHOLECYSTECTOMY HX 2014 ALLERGIES Patient has no known allergies. MEDICATIONS lamoTRIgine (LAMICTAL) 100 mg tablet Take 1 tablet by mouth once daily for 14 days, THEN 1.5 tablets once daily. Desogestrel-Ethinyl Estradiol (APRI) 0.15-0.03 mg per tablet Take 1 tablet by mouth once daily. (Patient not taking: Reported on 11/07/2023) FAMILY HISTORY Problem Relation Age of Onset other (MVP, IBS) Mother No Known Problems Father no relationship Cancer Sister cervical Depression Brother Social History Tobacco Use Smoking status: Never Smokeless tobacco: Never Tobacco comments: vapes daily Vaping Use Vaping Use: current everyday user Substances: Nicotine, Flavoring Devices: Disposable Substance Use Topics Alcohol use: No Drug use: No BP 112/74 Pulse 86 Resp 16 Wt 83 kg (183 lb) LMP 10/04/2023 (Exact Date) SpO2 99% BMI 32.42 kg/m? Physical Exam Vitals reviewed. Constitutional: Appearance: Normal appearance. Neurological: Mental Status: She is alert. Psychiatric: Mood and Affect: Mood normal. Behavior: Behavior normal. ASSESSMENT/PLAN: 1. Positive test - ICD9: V72.42, ICD10: Z32.01 Multiple positive home tests. Advised patient in office urine tests here are the same thing as over the counter. She would like to have a blood test done, ordered per her request. Recommend scheduling with her wool batting worker, she is agreeable. - CONSULT TO STUNT PERSON - HCG QUANTITATIVE Prescription instructions reviewed with patient as applicable. Potential red flag symptoms discussed with the patient. Reviewed appropriate action plan to take if red flag symptoms occur. Patient agreeable to treatment plan. During this patient visit I have spent approximately 20 minutes in counseling regarding test results and coordinating care. Aaliyah Mendoza APRN.CNP [facility] 10-31-2023 Note HNO ID: [id number] Author: ANAY YOUNG RDMS Service: ? Author Type: Blasting Entry Specialist Type: Progress Notes Filed: 10/31/2023 15:56 Note Text: Radiology Service Progress Note PATIENT NAME: Michelle Iyer DATE OF SERVICE: October 31, 2023 TIME: 3:56 PM PATIENT IDENTITY VERIFICATION COMPLETED USING TWO (2) IDENTIFIERS: Name and Date of confirmed by patient verbally. FALL SCREENING: Has the patient had 2 falls in the last year or 1 fall with injury or currently using an Ambulatory Assistive Device (Walker, Cane, Wheelchair, Crutches, etc.)? No PATIENT GENDER DATA: Female. status: : No status: NO. PATIENT RELEVANT IMPLANT DATA REVIEWED: Not Applicable RADIOLOGY DEPARTMENT: Ultrasound PERIPHERAL IV DATA: Not applicable SIGNED BY: Anay Young RDMS October 31, 2023 3:56 PM [facility] 10-31-2023 Note HNO ID: [id number] Author: YOBANI HERRERA Mammo Tech Service: ? Author Type: Blasting Entry Specialist Type: Progress Notes Filed: 10/31/2023 15:07 Note Text: Radiology Service Progress Note PATIENT NAME: Michelle Iyer DATE OF SERVICE: October 31, 2023 TIME: 2:50 PM PATIENT IDENTITY VERIFICATION COMPLETED USING TWO (2) IDENTIFIERS: Name and Date of confirmed by patient verbally. FALL SCREENING: Has the patient had 2 falls in the last year or 1 fall with injury or currently using an Ambulatory Assistive Device (Walker, Cane, Wheelchair, Crutches, etc.)? No PATIENT GENDER DATA: Female. status: : No status: NO. PATIENT RELEVANT IMPLANT DATA REVIEWED: Not Applicable RADIOLOGY DEPARTMENT: Mammography PERIPHERAL IV DATA: Not applicable SIGNED BY: Domonique BautistaBeQuan Antonette October 31, 2023 2:50 PM [facility] 10-06-2023 Note HNO ID: [id number] Author: Aaliyah Mendoza APRN.COORDINATE MEASURING EQUIPMENT OPERATOR Service: ? Author Type: Nurse Practitioner Type: Progress Notes Filed: 10/06/2023 9:24 AM Note Text: CC: Patient presents with: Breast Problem: Lump on right breast HPI Michelle Iyer is a 38 year old female who presents today for above. Patient reports painful lump in the right breast that she just found this week. No other lumps in the breasts, swelling, rashes, skin texture changes, nipple discharge or abnormality. She has a history of lump in the same breast requiring biopsy in 2020. She denies personal or family history of breast cancer. Diagnostic mammogram and ultrasound December 2022 showing a benign oval mass in the upper outer quadrant. Review of Systems See HPI PAST MEDICAL HISTORY Diagnosis Date NEGATIVE MEDICAL HISTORY PAST SURGICAL HISTORY Procedure Laterality Date BREAST BIOPSY NEEDLE RIGHT Right 09/17/2021 CHOLECYSTECTOMY HX 2015 ALLERGIES Patient has no known allergies. MEDICATIONS Desogestrel-Ethinyl Estradiol (APRI) 0.15-0.03 mg per tablet Take 1 tablet by mouth once daily. lamoTRIgine (LAMICTAL) 100 mg tablet Take 1 tablet by mouth once daily for 14 days, THEN 1.5 tablets once daily. FAMILY HISTORY Problem Relation Age of Onset other (MVP, IBS) Mother No Known Problems Father no relationship Cancer Sister cervical Depression Brother Social History Tobacco Use Smoking status: Never Smokeless tobacco: Never Tobacco comments: vapes daily Vaping Use Vaping Use: current everyday user Substances: Nicotine, Flavoring Devices: Disposable Substance Use Topics Alcohol use: No Drug use: No BP 114/62 Pulse 82 Resp 16 Wt 84.4 kg (186 lb) LMP 10/08/2022 (Exact Date) SpO2 99% BMI 32.95 kg/m? Physical Exam Vitals reviewed. Constitutional: Appearance: Normal appearance. Chest: Breasts: Right: Mass (less then pea sized, tender mass in the 6 o'clock position) present. No swelling, inverted nipple, nipple discharge or skin change. Left: Normal. Lymphadenopathy: Upper Body: Right upper body: No supraclavicular adenopathy. Neurological: Mental Status: She is alert. DATA REVIEWED: LIMITED ULTRASOUND OF RIGHT BREAST: 01/11/2023 RESULT: Comparison is made to exam dated: 09/17/2021 mammogram - [facility]. There is a benign 1.9 cm x 1.1 cm x 0.9 cm oval mass with a circumscribed margin in the right breast at 10 o'clock middle depth. This oval mass is hypoechoic with an echogenic boundary and internal echoes. This abnormality is not significantly changed and correlates to the reported pain and with mammography findings. There is an associated biopsy clip. ASSESSMENT/PLAN: 1. Mass of lower inner quadrant of right breast - ICD9: 611.72, ICD10: N63.14 Normal breast exam other than small mass in the right breast Evaluate further with: - PRIYANKA DIAGNOSTIC RIGHT - US BREAST LTD RIGHT Follow-up pending results Prescription instructions reviewed with patient as applicable. Potential red flag symptoms discussed with the patient. Reviewed appropriate action plan to take if red flag symptoms occur. Patient agreeable to treatment plan. Aaliyah Mendoza APRN.JACQUELYN [facility] 09-08-2023 Note HNO ID: [id number] Author: Aaliyah Pineda APRN.JACQUELYN Service: ? Author Type: Nurse Practitioner Type: Progress Notes Filed: 09/08/2023 9:11 AM Note Text: CC: Patient presents with: Dizziness: Has taken HPI Michelle Iyer is a 38 year old female who presents today for above. Symptoms started one month ago. Symptoms are intermittent and last less than one minute. Recent events include no obvious precipitating event/injury.. Associated symptoms include none. Neurological symptoms: none Tinnitus: No. Hearing loss/ear fullness or pressure: No Triggered/aggravated by nothing so far. Alleviated by nothing, resolve on their own. Treatments tried: nothing She missed a couple periods and was concerned about due nausea. She has taken quite a few tests, some with a faint positive line and others negative. She did start her period two days ago but is not a normal period, very light. Review of Systems Constitutional: Negative for appetite change, chills, diaphoresis, fatigue, fever and unexpected weight change. Eyes: Negative for visual disturbance. Respiratory: Negative for cough, shortness of breath and wheezing. Cardiovascular: Negative for chest pain, palpitations and leg swelling. Gastrointestinal: Negative for abdominal pain and vomiting. Genitourinary: Negative for frequency. Neurological: Negative for tremors, seizures, syncope, facial asymmetry, speech difficulty, weakness, light-headedness, numbness and headaches. Psychiatric/Behavioral: Positive for sleep disturbance. The patient is not nervous/anxious. PAST MEDICAL HISTORY Diagnosis Date NEGATIVE MEDICAL HISTORY PAST SURGICAL HISTORY Procedure Laterality Date BREAST BIOPSY NEEDLE RIGHT Right 09/17/2021 CHOLECYSTECTOMY HX 2015 ALLERGIES Patient has no known allergies. MEDICATIONS lamoTRIgine (LAMICTAL) 100 mg tablet Take 1 tablet by mouth once daily for 14 days, THEN 1.5 tablets once daily. cholecalciferol (VITAMIN D-3) 5,000 unit tab Take 1 tablet by mouth once daily. albuterol HFA (PROAIR HFA) 90 mcg/actuation inhaler Inhale 2 Puffs as instructed every 4 hours as needed. Desogestrel-Ethinyl Estradiol (APRI) 0.15-0.03 mg per tablet Take 1 tablet by mouth once daily. FAMILY HISTORY Problem Relation Age of Onset other (MVP, IBS) Mother No Known Problems Father no relationship Cancer Sister cervical Depression Brother Social History Tobacco Use Smoking status: Never Smokeless tobacco: Never Tobacco comments: vapes daily Vaping Use Vaping Use: current everyday user Substances: Nicotine, Flavoring Devices: Disposable Substance Use Topics Alcohol use: No Drug use: No BP 136/87 Pulse 80 Wt 84.8 kg (187 lb) LMP 10/08/2022 (Exact Date) BMI 33.13 kg/m? Physical Exam Vitals reviewed. Constitutional: General: She is not in acute distress. Appearance: Normal appearance. She is not ill-appearing. HENT: Head: Normocephalic and atraumatic. Right Ear: Tympanic membrane normal. Left Ear: Tympanic membrane normal. Eyes: Extraocular Movements: Extraocular movements intact. Conjunctiva/sclera: Conjunctivae normal. Pupils: Pupils are equal, round, and reactive to light. Cardiovascular: Rate and Rhythm: Normal rate and regular rhythm. Pulses: Normal pulses. Heart sounds: Normal heart sounds. No murmur heard. Pulmonary: Effort: Pulmonary effort is normal. Breath sounds: Normal breath sounds. No wheezing, rhonchi or rales. Musculoskeletal: Cervical back: Neck supple. Lymphadenopathy: Cervical: No cervical adenopathy. Skin: General: Skin is warm and dry. Neurological: General: No focal deficit present. Mental Status: She is alert and oriented to person, place, and time. Cranial Nerves: Cranial nerves 2-12 are intact. Motor: Motor function is intact. Coordination: Romberg sign negative. Coordination normal. Estrrj-Hmzy-Vfhekh Test normal. Rapid alternating movements normal. Gait: Gait and tandem walk normal. Deep Tendon Reflexes: Reflexes are normal and symmetric. Comments: Bimble Hallpike negative DATA REVIEWED: Most recent labs ASSESSMENT/PLAN: 1. Dizziness - ICD9: 780.4, ICD10: R42 (primary diagnosis) Etiology unclear. No alarm symptoms or exam findings. Neuro exam benign. Bimble Hallpike negative Check labs: - CBC + DIFF - COMP METABOLIC PANEL Follow-up pending results 2. Missed period - ICD9: 626.4, ICD10: N92.6 - HCG QUANTITATIVE Prescription instructions reviewed with patient as applicable. Potential red flag symptoms discussed with the patient. Reviewed appropriate action plan to take if red flag symptoms occur. Patient agreeable to treatment plan. Aaliyah Pineda APRN.COORDINATE MEASURING EQUIPMENT OPERATOR [facility] 09-08-2023 History of Presen t illness Narrative CC: Patient presents with: Dizziness: Has taken HPI Michelle Iyer is a 38 year old female who presents today for above. Symptoms started one month ago. Symptoms are intermittent and last less than one minute. Recent events include no obvious precipitating event/injury.. Associated symptoms include none. Neurological symptoms: none Tinnitus: No. Hearing loss/ear fullness or pressure: No Triggered/aggravated by nothing so far. Alleviated by nothing, resolve on their own. Treatments tried: nothing She missed a couple periods and was concerned about due nausea. She has taken quite a few tests, some with a faint positive line and others negative. She did start her period two days ago but is not a normal period, very light. Review of Systems Constitutional: Negative for appetite change, chills, diaphoresis, fatigue, fever and unexpected weight change. Eyes: Negative for visual disturbance. Respiratory: Negative for cough, shortness of breath and wheezing. Cardiovascular: Negative for chest pain, palpitations and leg swelling. Gastrointestinal: Negative for abdominal pain and vomiting. Genitourinary: Negative for frequency. Neurological: Negative for tremors, seizures, syncope, facial asymmetry, speech difficulty, weakness, light-headedness, numbness and headaches. Psychiatric/Behavioral: Positive for sleep disturbance. The patient is not nervous/anxious. PAST MEDICAL HISTORY Diagnosis Date NEGATIVE MEDICAL HISTORY PAST SURGICAL HISTORY Procedure Laterality Date BREAST BIOPSY NEEDLE RIGHT Right 09/17/2021 CHOLECYSTECTOMY HX 2014 ALLERGIES Patient has no known allergies. MEDICATIONS lamoTRIgine (LAMICTAL) 100 mg tablet Take 1 tablet by mouth once daily for 14 days, THEN 1.5 tablets once daily. cholecalciferol (VITAMIN D-3) 5,000 unit tab Take 1 tablet by mouth once daily. albuterol HFA (PROAIR HFA) 90 mcg/actuation inhaler Inhale 2 Puffs as instructed every 4 hours as needed. Desogestrel-Ethinyl Estradiol (APRI) 0.15-0.03 mg per tablet Take 1 tablet by mouth once daily. FAMILY HISTORY Problem Relation Age of Onset other (MVP, IBS) Mother No Known Problems Father no relationship Cancer Sister cervical Depression Brother Social History Tobacco Use Smoking status: Never Smokeless tobacco: Never Tobacco comments: vapes daily Vaping Use Vaping Use: current everyday user Substances: Nicotine, Flavoring Devices: Disposable Substance Use Topics Alcohol use: No Drug use: No BP 136/87 Pulse 80 Wt 84.8 kg (187 lb) LMP 10/08/2022 (Exact Date) BMI 33.13 kg/m Physical Exam Vitals reviewed. Constitutional: General: She is not in acute distress. Appearance: Normal appearance. She is not ill-appearing. HENT: Head: Normocephalic and atraumatic. Right Ear: Tympanic membrane normal. Left Ear: Tympanic membrane normal. Eyes: Extraocular Movements: Extraocular movements intact. Conjunctiva/sclera: Conjunctivae normal. Pupils: Pupils are equal, round, and reactive to light. Cardiovascular: Rate and Rhythm: Normal rate and regular rhythm. Pulses: Normal pulses. Heart sounds: Normal heart sounds. No murmur heard. Pulmonary: Effort: Pulmonary effort is normal. Breath sounds: Normal breath sounds. No wheezing, rhonchi or rales. Musculoskeletal: Cervical back: Neck supple. Lymphadenopathy: Cervical: No cervical adenopathy. Skin: General: Skin is warm and dry. Neurological: General: No focal deficit present. Mental Status: She is alert and oriented to person, place, and time. Cranial Nerves: Cranial nerves 2-12 are intact. Motor: Motor function is intact. Coordination: Romberg sign negative. Coordination normal. Rcgast-Zwee-Qihyoq Test normal. Rapid alternating movements normal. Gait: Gait and tandem walk normal. Deep Tendon Reflexes: Reflexes are normal and symmetric. Comments: Aníbal Hallpike negative DATA REVIEWED: Most recent labs ASSESSMENT/PLAN: 1. Dizziness - ICD9: 780.4, ICD10: R42 (primary diagnosis) Etiology unclear. No alarm symptoms or exam findings. Neuro exam benign. Aníbal Bernard negative Check labs: - CBC + DIFF - COMP METABOLIC PANEL Follow-up pending results 2. Missed period - ICD9: 626.4, ICD10: N92.6 - HCG QUANTITATIVE Prescription instructions reviewed with patient as applicable. Potential red flag symptoms discussed with the patient. Reviewed appropriate action plan to take if red flag symptoms occur. Patient agreeable to treatment plan. Aaliyah Pineda APRN.CNP documented in this encounter [facility] 04-17-2023 Miscellaneous Notes Message to call office to schedule FU when Db returns and once scheduled refills can be sent. Please help her schedule a follow-up when Db is back. I will send in a script with the titration once she has an appt Spoke to patient since she has not had refill since 03/17. Patient said after last dose never called in for refill and has not been taking for almost a month. Patient aware this medication should not be abruptly stopped, also aware may have to start titration over again since been off of for period of time. Patient verbalized understanding Sujatha Schultz Ma documented in this encounter [facility] 03-15-2023 Note HNO ID: [id number] Author: Db Kunz APRN.JACQUELYN Service: ? Author Type: Nurse Practitioner Type: Progress Notes Filed: 03/15/2023 1:25 PM Note Text: Patient did not come in for her follow up with the provider today. [facility] 02-01-2023 Note HNO ID: [id number] Author: Db Kunz APRN.COORDINATE MEASURING EQUIPMENT OPERATOR Service: ? Author Type: Nurse Practitioner Type: Progress Notes Filed: 02/08/2023 11:48 PM Note Text: PSYC FOLLOW UP - PSYCHIATRIC PROGRESS NOTE DIAGNOSIS: Vitamin D Deficiency Bipolar 2 disorder Generalized Anxiety Disorder GAF: -60-51 Moderate symptoms or moderate difficulty in social, occupational or school functioning. TREATMENT PLAN: Increase Lamictal to address mood related symptoms. Discontinue Hydroxyzine due to daytime sedation side effects. Start Buspar to help with anxiety symptoms. Complete Vitamin D lab work. Consider starting individual psychotherapy. Current barrier is her scheduling difficulty due to multiple medical appointments. Follow up in 4 weeks. Medication Update: Lamictal 100 mg - take 1 tablet once daily for 14 days; then take 2 tablets once daily after that. 2. Buspar 10 mg - take 1/2 tablet once daily for 2 weeks, then take 1 tablet twice daily after that. The effects and side effects of all the medications were reviewed in detail with the patient. She is aware of the rash side effect associated with Lamictal. Patient is in agreement with the treatment plan and aware to reach out with any questions, concerns, or worsening of symptoms prior to the next appointment. CC: Follow up regarding mood and anxiety HPI: Michelle Iyer is a 37 year old Female with a history of Bipolar 2 disorder and STORMY presenting today for follow-up. Date of last visit: 11/03/2022 Plan from last visit: 1. Start Lamictal to address her mood disorder symptoms. 2. Utilize hydroxyzine at night for sleep difficulties and racing thoughts. 3. Consider scheduling an appointment with a therapist. 4. Complete Vitamin D and Vitamin B12 labwork. Today Michelle shares that she is still trying to get clarification regarding her GI diagnosis. Shares that she was not . She has been able to start Vitamin D. Feels that Lamictal has been helping with her mood. Still struggles with feelings of depression. Has had times when she has felt like not wanting to go to work. Denies any side effects from the medication. She has been very busy working and juggling her appointments. Also has to take her son to appointments. Does not wish to take hydroxyzine to manage anxiety during the day as it makes her drowsy. She has been struggling with more fatigue. She is not able to eat well due to her stomach issues. Interval Progress: Slightly improved Risks and benefits of the medication, including any black box warnings, were discussed with the patient. Social History: See HPI PATIENT DATA: Generalized Anxiety Disorder Scale (STORMY-7) STORMY - 7 SCORES 12/23/2022 12/23/2022 01/25/2023 STORMY-7 Score 6 6 6 (0-4) minimal anxiety, (5-9) mild anxiety, (10-14) moderate anxiety, (15-21) severe anxiety Patient Health Questionnaire (PHQ-9) PHQ-9 12/23/2022 12/23/2022 01/25/2023 Score 8 8 9 (0-4) minimal depression, (5-9) mild depression, (10-14) moderate depression, (15-19) moderately severe depression, (20-27) severe depression ROS: See HPI General: Negative for fever, malaise, unintentional weight loss HEENT: Negative for recent changes in vision or hearing, no nasal drainage Respiratory: Negative for cough, wheezing or SOB Cardiovascular: Negative for chest pain GI: Negative for nausea, vomiting, change in bowel habits MUSCULOSKELETAL: Negative for acute back or joint pain SKIN: Negative for rash NEURO: Negative for headaches, seizures, focal neurological deficits All other systems negative. VITAL SIGNS: BP 118/68 (02/01/23 1552) Temp Pulse 84 (02/01/23 1552) Resp SpO2 MENTAL STATUS EXAMINATION: Appearance: Appropriately groomed, appears stated age Behavior: Appropriately engaged Psychomotor: No psychomotor agitation Cognition Level of Consciousness: Awake and alert. No fluctuation in wakefulness. Orientation: Grossly oriented Memory: Intact Attention/Concentration: Good Fund of Knowledge: Able to demonstrate an awareness of current events. Mood: Anxious Affect: Congruent to mood Speech/Language: Appropriate tone, prosody, amina, phonetics, and syntax Thought Form: Goal-directed. No loosening of associations. Thought Content: No delusions noted or endorsed. Perceptual Disturbances: Did not appear to respond to auditory stimuli. Safety: Suicidal Ideations: No suicidal ideation, intent or plan. Homicidal Ideations: No homicidal ideation, intent or plan. Insight: Appropriate Judgment: Appropriate I spent a total of 28 minutes on the date of the service which included preparing to see the patient, [id number] patient care, completing clinical documentation, and counseling and educating the patient/family/caregiver, ordering medications/labs. Db Kunz APRN.COORDINATE MEASURING EQUIPMENT OPERATOR February 01, 2023 4:08 PM This note was partially generated using [employer] voice recognition system. Note was re (more content not included)... [facility] 01-11-2023 Note HNO ID: [id number] Author: Lincoln Guerrero RDMS Service: ? Author Type: Immigration Services Officer Type: Progress Notes Filed: 01/11/2023 2:58 PM Note Text: Radiology Service Progress Note PATIENT NAME: Michelle Iyer DATE OF SERVICE: January 11, 2023 TIME: 2:58 PM PATIENT IDENTITY VERIFICATION COMPLETED USING TWO (2) IDENTIFIERS: Name and Date of confirmed by patient verbally. FALL SCREENING: Has the patient had 2 falls in the last year or 1 fall with injury or currently using an Ambulatory Assistive Device (Walker, Cane, Wheelchair, Crutches, etc.)? No PATIENT GENDER DATA: Female. status: : No status: NO. PATIENT RELEVANT IMPLANT DATA REVIEWED: Not Applicable RADIOLOGY DEPARTMENT: Ultrasound PERIPHERAL IV DATA: Not applicable SIGNED BY: Lincoln Guerrero RDMS RVT January 11, 2023 2:58 PM [facility] 12-09-2022 Note HNO ID: [id number] Author: Brook Gaviria MD Service: ? Author Type: Physician Type: Progress Notes Filed: 12/09/2022 1:32 PM Note Text: Reason for Visit Patient presents with: Physical Michelle Iyer is a 37 year old female who presents here today for Above Complaints.. Health Maintenance HEPATITIS B(1 of 3 - 3-dose series) DTAP,TDAP,TD(1 - Tdap) COVID-19 VACCINE(2 - Booster for Amy series) DEPRESSION ASSESSMENT HPI Patient had a mammogram screening in 2020 for pain in the right breast. Right now it started paining again. The lump right now has started hurting her again. Diet- she has been eating well recently,. Eats salads, fruits and other normal stuff. Sleep- she has not been sleeping well right now. She is not sleeping because of the stress that is going on right now. 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 Patient is dealing with a lot of issues at this time, abdominal complaints and being evaluated for it. No problem-specific Assessment AND Plan notes found for this encounter. PAST MEDICAL HISTORY Diagnosis Date NEGATIVE MEDICAL HISTORY PAST SURGICAL HISTORY Procedure Laterality Date BREAST BIOPSY NEEDLE RIGHT Right 09/17/2021 CHOLECYSTECTOMY HX 2015 FAMILY HISTORY Problem Relation Age of Onset other (MVP, IBS) Mother No Known Problems Father no relationship Cancer Sister cervical Depression Brother Social History Tobacco Use Smoking status: Never Smokeless tobacco: Never Tobacco comments: vapes daily Vaping Use Vaping Use: current everyday user Substances: Nicotine, Flavoring Devices: Disposable Substance Use Topics Alcohol use: No Drug use: No Past medical history, appointments, medications, allergies reviewed. Pertinent Lab/Diagnostic Studies are reviewed and discussed today Current Outpatient Medications: cholecalciferol (VITAMIN D-3) 5,000 unit tab lamoTRIgine (LAMICTAL) 25 mg tablet albuterol HFA (PROAIR HFA) 90 mcg/actuation inhaler benzonatate (TESSALON PERLE) 100 mg capsule Desogestrel-Ethinyl Estradiol (APRI) 0.15-0.03 mg per tablet nabumetone (RELAFEN) 500 mg tablet Review of Systems CONSTITUTIONAL: No fevers, chills night sweats, unintended weight loss CARDIOVASCULAR: No chest pain, dyspnea, palpitations, orthopnea, PND, ankle edema. PULM: No dyspnea, unexplained cough. GI: No dysphagia/odynophagia, problematic reflux, constipation, diarrhea, changes in stool habits, hematochezia, melena. : No new urinary complaints, including dysuria, gross hematuria or pyuria. NEURO: No new balance problems, peripheral weakness/paresthesias or numbness of concern. Physical Exam BP 116/70 (BP Site: Left Arm, BP Position: Sitting, BP Cuff Size: Large Adult) Pulse 69 Temp 37.6 ?C (99.6 ?F) Resp 12 Ht 160 cm (5' 3 ) Wt 95.7 kg (211 lb) LMP 10/08/2022 (Exact Date) SpO2 99% BMI 37.38 kg/m? General appearance: Well appearing, alert, in no acute distress, well-hydrated, well nourished. Skin: Skin color, texture, turgor normal, no suspicious rashes or lesions Head: Normocephalic, no masses, lesions, tenderness or abnormalities Eyes: Anicteric sclera. Pupils are equally round and reactive to light. Extraocular movements are intact. Ears: External ears normal, canals clear Nose/Sinuses: Nares normal, septum midline, mucosa normal, no drainage or sinus tenderness Oropharynx: Lips, mucosa, and tongue normal, teeth and gums normal, oropharynx normal Neck: Supple, no adenopathy; thyroid symmetric, normal size, no bruits Back: Normal exam Breast exam: there was some lumpiness in the right breast outer aspect. Lungs: Lungs clear to auscultation. No wheezing, rhonchi, rales Heart: RRR without murmur, gallop, or rubs. No ectopy Abdomen: Normal abdominal exam, Abdomen soft, non-tender. Bowel sounds normal. No masses, organomegaly Extremities: No deformities, edema, skin discoloration, clubbing or cyanosis. Good capillary refill. Musculoskeletal: No joint swelling, deformity, or tenderness Peripheral pulses: Normal Neuro: Gait normal. Reflexes normal and symmetric. Sensation grossly intact. ASSESSMENT/PLAN: 1. Annual physical exam - ICD9: V70.0, ICD10: Z00.00 (primary diagnosis) - Counseled on healthy diet and regular exercise - Calcium intake with supplements or by diet of 1000 mg/day for under 50, 4354-5715 mg/day for 50+ 2. Mass of right breast, unspecified quadrant - ICD9: 611.72, ICD10: N63.10 - PRIYANKA DIAGNOSTIC BILAT - BREAST LTD RT Brook Gaviria MD [facility] 12-09-2022 History of Presen t illness Narrative Reason for Visit Patient presents with: Physical Michelle Iyer is a 37 year old female who presents here today for Above Complaints.. Health Maintenance HEPATITIS B(1 of 3 - 3-dose series) DTAP,TDAP,TD(1 - Tdap) COVID-19 VACCINE(2 - Booster for Amy series) DEPRESSION ASSESSMENT HPI Patient had a mammogram screening in 2020 for pain in the right breast. Right now it started paining again. The lump right now has started hurting her again. Diet- she has been eating well recently,. Eats salads, fruits and other normal stuff. Sleep- she has not been sleeping well right now. She is not sleeping because of the stress that is going on right now. 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 Patient is dealing with a lot of issues at this time, abdominal complaints and being evaluated for it. No problem-specific Assessment & Plan notes found for this encounter. PAST MEDICAL HISTORY Diagnosis Date NEGATIVE MEDICAL HISTORY PAST SURGICAL HISTORY Procedure Laterality Date BREAST BIOPSY NEEDLE RIGHT Right 09/17/2021 CHOLECYSTECTOMY HX 2015 FAMILY HISTORY Problem Relation Age of Onset other (MVP, IBS) Mother No Known Problems Father no relationship Cancer Sister cervical Depression Brother Social History Tobacco Use Smoking status: Never Smokeless tobacco: Never Tobacco comments: vapes daily Vaping Use Vaping Use: current everyday user Substances: Nicotine, Flavoring Devices: Disposable Substance Use Topics Alcohol use: No Drug use: No Past medical history, appointments, medications, allergies reviewed. Pertinent Lab/Diagnostic Studies are reviewed and discussed today Current Outpatient Medications: cholecalciferol (VITAMIN D-3) 5,000 unit tab lamoTRIgine (LAMICTAL) 25 mg tablet albuterol HFA (PROAIR HFA) 90 mcg/actuation inhaler benzonatate (TESSALON PERLE) 100 mg capsule Desogestrel-Ethinyl Estradiol (APRI) 0.15-0.03 mg per tablet nabumetone (RELAFEN) 500 mg tablet Review of Systems CONSTITUTIONAL: No fevers, chills night sweats, unintended weight loss CARDIOVASCULAR: No chest pain, dyspnea, palpitations, orthopnea, PND, ankle edema. PULM: No dyspnea, unexplained cough. GI: No dysphagia/odynophagia, problematic reflux, constipation, diarrhea, changes in stool habits, hematochezia, melena. : No new urinary complaints, including dysuria, gross hematuria or pyuria. NEURO: No new balance problems, peripheral weakness/paresthesias or numbness of concern. Physical Exam BP 116/70 (BP Site: Left Arm, BP Position: Sitting, BP Cuff Size: Large Adult) Pulse 69 Temp 37.6 C (99.6 F) Resp 12 Ht 160 cm (5' 3 ) Wt 95.7 kg (211 lb) LMP 10/08/2022 (Exact Date) SpO2 99% BMI 37.38 kg/m General appearance: Well appearing, alert, in no acute distress, well-hydrated, well nourished. Skin: Skin color, texture, turgor normal, no suspicious rashes or lesions Head: Normocephalic, no masses, lesions, tenderness or abnormalities Eyes: Anicteric sclera. Pupils are equally round and reactive to light. Extraocular movements are intact. Ears: External ears normal, canals clear Nose/Sinuses: Nares normal, septum midline, mucosa normal, no drainage or sinus tenderness Oropharynx: Lips, mucosa, and tongue normal, teeth and gums normal, oropharynx normal Neck: Supple, no adenopathy; thyroid symmetric, normal size, no bruits Back: Normal exam Breast exam: there was some lumpiness in the right breast outer aspect. Lungs: Lungs clear to auscultation. No wheezing, rhonchi, rales Heart: RRR without murmur, gallop, or rubs. No ectopy Abdomen: Normal abdominal exam, Abdomen soft, non-tender. Bowel sounds normal. No masses, organomegaly Extremities: No deformities, edema, skin discoloration, clubbing or cyanosis. Good capillary refill. Musculoskeletal: No joint swelling, deformity, or tenderness Peripheral pulses: Normal Neuro: Gait normal. Reflexes normal and symmetric. Sensation grossly intact. ASSESSMENT/PLAN: 1. Annual physical exam - ICD9: V70.0, ICD10: Z00.00 (primary diagnosis) - Counseled on healthy diet and regular exercise - Calcium intake with supplements or by diet of 1000 mg/day for under 50, 0013-9645 mg/day for 50+ 2. Mass of right breast, unspecified quadrant - ICD9: 611.72, ICD10: N63.10 - PRIYANKA DIAGNOSTIC BILAT - BREAST LTD RT Brook Gaviria MD documented in this encounter [facility] 11-16-2022 Note HNO ID: [id number] Author: Lincoln Ferguson APRN.ANG Service: ? Author Type: Resource Agent Type: Progress Notes Filed: 11/25/2022 9:11 AM Note Text: Michelle Iyer is a 37 year old female who presents for problem visit for irregular menses and positive test. HPI: Menses usually regular, 32-35 days. Bleeding lasts 5-6 days, heavy on first few days then lightens. Was taking GUILLAUME but stopped taking first week of September due to several missed doses. Had light spotting 1/3 following unprotected intercourse that lasted for 3 days. Has not restarted GUILLAUME but using condoms occasionally. Complaints of nausea, mood swings, fatigue, pelvic heaviness . Denies vomiting, breast tenderness, or urinary symptoms. Taken several at home test, first test positive and several following were negative. Express care test negative. Office test negative. Not trying to conceive. No new treatments, lifestyle changes, stressors, or medications. OB History T0 L2 SAB0 IAB0 Ectopic0 Multiple0 Live Births0 Home Inspector History LMP: 10/08/2022 (Exact Date), Having periods Age at Menarche: Age at First : Age at Menopause: Home Inspector History Comments: Sexual Activity: Yes; Male Contraception: Condom PAST MEDICAL HISTORY Diagnosis Date NEGATIVE MEDICAL HISTORY PAST SURGICAL HISTORY Procedure Laterality Date BREAST BIOPSY NEEDLE RIGHT Right 09/17/2021 CHOLECYSTECTOMY HX 2014 FAMILY HISTORY Problem Relation Age of Onset other (MVP, IBS) Mother No Known Problems Father no relationship Cancer Sister cervical Depression Brother Social History Tobacco Use Smoking status: Never Smokeless tobacco: Never Tobacco comments: vapes daily Vaping Use Vaping Use: current everyday user Substances: Nicotine, Flavoring Devices: Disposable Substance Use Topics Alcohol use: No Drug use: No Current Outpatient Medications Medication Sig cholecalciferol (VITAMIN D-3) 5,000 unit tab Take 1 tablet by mouth once daily. lamoTRIgine (LAMICTAL) 25 mg tablet Take 1 tablet by mouth once daily for 14 days, THEN 2 tablets once daily for 14 days, THEN 3 tablets once daily. albuterol HFA (PROAIR HFA) 90 mcg/actuation inhaler Inhale 2 Puffs as instructed every 4 hours as needed. benzonatate (TESSALON PERLE) 100 mg capsule Take 2 capsules by mouth three times daily as needed. nabumetone (RELAFEN) 500 mg tablet Take 1 tablet by mouth twice daily as needed for pain (WITH FOOD). Desogestrel-Ethinyl Estradiol (APRI) 0.15-0.03 mg per tablet Take 1 tablet by mouth once daily. (Patient not taking: Reported on 11/16/2022) No current facility-administered medications for this visit. Allergies As of Date: 11/16/2022 (No Known Allergies) Fully Assessed 11/16/2022 REVIEW OF SYSTEMS Abdomen: No bloating, early satiety, indigestion, or increased flatulence. No abdominal pain, vomiting, diarrhea, or constipation. Complaints of nausea. Bladder: No dysuria, gross hematuria, urinary frequency, urinary urgency, or incontinence. Breast: No breast lumps, nipple d/c, overlying skin changes, redness or skin retraction. Expanded ROS: N/A Allergies and current medication updated:Yes EXAM: BP 108/64 Wt 210 lb 6.4 oz (95.4kg) LMP 10/08/2022 GENERAL: pleasant, female in no apparent distress HEENT: Normocephalic, atraumatic, mucus membranes moist, and no lesions NECK: Supple, full range of motion, no adenopathy, and thyroid normal DERMATOLOGY: Normal, without lesions, non-icteric, and non-hirsute BREAST: deferred CHEST: Normal inspiratory effort ABDOMEN: soft, non-tender, and no masses PELVIC: external genitalia normal, normal Bartholin's glands, urethra, Somerton's glands, no vulvar lesions, no cervical lesions, good vaginal support, physiologic discharge present, normal appearing perineal body and perianal region BIMANUAL: uterus normal size, shape and consistency, no adnexal masses, non-tender, and no cervical motion tenderness NEURO: alert and oriented x3,exam grossly non-focal EXTREMITIES: normal ASSESSMENT AND PLAN: 1. Missed menses - ICD9: 626.4, ICD10: N92.6 (primary diagnosis) - HCG QUAL UR B/O - HCG QUANTITATIVE 2. Encounter for surveillance of contraceptive pills - ICD9: V25.41, ICD10: Z30.41 - discussed with patient on how to take OCP's and missed pills can make irregularities. Reviewed different control options and information given. She will return for further discussion after she reviews information. ANOOP Hwang, student PATRICIA Ferguson APRN.CNM TEACHING NOTE OF PERSONAL INVOLVEMENT IN CARE: I have interviewed the patient and updated the student's PFS history, and ROS as necessary. I have re-performed the HPI, Physical Examination, Assessment and Plan. [facility] 11-15-2022 Note HNO ID: [id number] Author: DIANNE Henderson Service: ? Author Type: Physician Pollution Control Chemist Type: Progress Notes Filed: 11/15/2022 1:33 PM Note Text: This note was created using AQUA P[employer]. Subjective Michelle Iyer is a 37 year old female. HPI 37-year-old female presents for missed menses. Patient states her LMP was 10/08/2022. She states that she just missed her menstrual cycle. She states she took multiple home test, most were negative. She thought one might be slightly positive. States that she was prescribed control, but stopped taking it. She denies any vaginal bleeding. No abdominal pain or pelvic pain. States occasionally she gets some low back pain. She has been fatigued and nauseous. She has had some intermittent soft stool over the past few weeks. She denies any diarrhea today. No watery diarrhea. No recent antibiotic use. She was here few weeks ago for URI and states all the symptoms have resolved. She did not take the antibiotic that was prescribed at that time because her symptoms improved. She denies any urinary symptoms. No blood in the urine, dysuria, flank pain. No vomiting. Still able to eat and drink. She has an appointment with her OB on 11/29/2022. PAST MEDICAL HISTORY Diagnosis Date NEGATIVE MEDICAL HISTORY PAST SURGICAL HISTORY Procedure Laterality Date BREAST BIOPSY NEEDLE RIGHT Right 09/17/2021 CHOLECYSTECTOMY HX 2015 ALLERGIES Patient has no known allergies. MEDICATIONS cholecalciferol (VITAMIN D-3) 5,000 unit tab Take 1 tablet by mouth once daily. lamoTRIgine (LAMICTAL) 25 mg tablet Take 1 tablet by mouth once daily for 14 days, THEN 2 tablets once daily for 14 days, THEN 3 tablets once daily. albuterol HFA (PROAIR HFA) 90 mcg/actuation inhaler Inhale 2 Puffs as instructed every 4 hours as needed. nabumetone (RELAFEN) 500 mg tablet Take 1 tablet by mouth twice daily as needed for pain (WITH FOOD). benzonatate (TESSALON PERLE) 100 mg capsule Take 2 capsules by mouth three times daily as needed. Desogestrel-Ethinyl Estradiol (APRI) 0.15-0.03 mg per tablet Take 1 tablet by mouth once daily. (Patient not taking: Reported on 10/31/2022) FAMILY HISTORY Problem Relation Age of Onset other (MVP, IBS) Mother No Known Problems Father no relationship Cancer Sister cervical Depression Brother Social History Tobacco Use Smoking status: Never Smokeless tobacco: Never Tobacco comments: vapes daily Vaping Use Vaping Use: current everyday user Substances: Nicotine, Flavoring Devices: Disposable Substance Use Topics Alcohol use: No Drug use: No Review of Systems Constitutional: Positive for fatigue. Negative for chills and fever. HENT: Negative for congestion, ear pain and sore throat. Respiratory: Negative for cough and shortness of breath. Cardiovascular: Negative for chest pain. Gastrointestinal: Positive for diarrhea (soft stool, intermittent) and nausea. Negative for vomiting. Genitourinary: Positive for menstrual problem. Negative for pelvic pain and vaginal bleeding. Objective BP 110/72 Pulse 111 Temp 36.6 ?C (97.8 ?F) (Tympanic) Resp 18 Wt 96.1 kg (211 lb 12.8 oz) LMP 10/08/2022 (Exact Date) BMI 37.52 kg/m? Physical Exam Vitals and nursing note reviewed. Constitutional: General: She is not in acute distress. Appearance: Normal appearance. She is not toxic-appearing. HENT: Mouth/Throat: Mouth: Mucous membranes are moist. Eyes: Conjunctiva/sclera: Conjunctivae normal. Cardiovascular: Rate and Rhythm: Normal rate and regular rhythm. Pulmonary: Effort: Pulmonary effort is normal. Breath sounds: Normal breath sounds. Abdominal: General: Abdomen is flat. Palpations: Abdomen is soft. Tenderness: There is no abdominal tenderness. There is no right CVA tenderness, left CVA tenderness, guarding or rebound. Neurological: Mental Status: She is alert. Assessment and Plan ASSESSMENT/PLAN: 1. Missed menses - ICD9: 626.4, ICD10: N92.6 (primary diagnosis) - HCG QUAL UR B/O- NEGATIVE -Advised patient to continue monitoring symptoms. test today is negative. -Advised to go to the ER with any abdominal pain, pelvic pain or abnormal vaginal bleeding. -Follow-up with wool batting worker on 11/29/2022 as scheduled. -Possibly irregular menses due to stopping control/being noncompliant with it. 2. Fatigue, unspecified type - ICD9: 780.79, ICD10: R53.83 3. Nausea - ICD9: 787.02, ICD10: R11.0 Diagnosis and treatment plan were discussed and questions were answered to the patient's satisfaction. Pt acknowledged understanding of concepts and follow up plan. Specific signs and symptoms that would indicate the need for higher level of care were discussed in detail warranting prompt ER evaluation. DIANNE Henderson [facility] 11-15-2022 History of Presen t illness Narrative This note was created using SADAR 3D. Subjective Michelle Iyer is a 37 year old female. HPI 37-year-old female presents for missed menses. Patient states her LMP was 10/08/2022. She states that she just missed her menstrual cycle. She states she took multiple home test, most were negative. She thought one might be slightly positive. States that she was prescribed control, but stopped taking it. She denies any vaginal bleeding. No abdominal pain or pelvic pain. States occasionally she gets some low back pain. She has been fatigued and nauseous. She has had some intermittent soft stool over the past few weeks. She denies any diarrhea today. No watery diarrhea. No recent antibiotic use. She was here few weeks ago for URI and states all the symptoms have resolved. She did not take the antibiotic that was prescribed at that time because her symptoms improved. She denies any urinary symptoms. No blood in the urine, dysuria, flank pain. No vomiting. Still able to eat and drink. She has an appointment with her OB on 11/29/2022. PAST MEDICAL HISTORY Diagnosis Date NEGATIVE MEDICAL HISTORY PAST SURGICAL HISTORY Procedure Laterality Date BREAST BIOPSY NEEDLE RIGHT Right 09/17/2021 CHOLECYSTECTOMY HX 2015 ALLERGIES Patient has no known allergies. MEDICATIONS cholecalciferol (VITAMIN D-3) 5,000 unit tab Take 1 tablet by mouth once daily. lamoTRIgine (LAMICTAL) 25 mg tablet Take 1 tablet by mouth once daily for 14 days, THEN 2 tablets once daily for 14 days, THEN 3 tablets once daily. albuterol HFA (PROAIR HFA) 90 mcg/actuation inhaler Inhale 2 Puffs as instructed every 4 hours as needed. nabumetone (RELAFEN) 500 mg tablet Take 1 tablet by mouth twice daily as needed for pain (WITH FOOD). benzonatate (TESSALON PERLE) 100 mg capsule Take 2 capsules by mouth three times daily as needed. Desogestrel-Ethinyl Estradiol (APRI) 0.15-0.03 mg per tablet Take 1 tablet by mouth once daily. (Patient not taking: Reported on 10/31/2022) FAMILY HISTORY Problem Relation Age of Onset other (MVP, IBS) Mother No Known Problems Father no relationship Cancer Sister cervical Depression Brother Social History Tobacco Use Smoking status: Never Smokeless tobacco: Never Tobacco comments: vapes daily Vaping Use Vaping Use: current everyday user Substances: Nicotine, Flavoring Devices: Disposable Substance Use Topics Alcohol use: No Drug use: No Review of Systems Constitutional: Positive for fatigue. Negative for chills and fever. HENT: Negative for congestion, ear pain and sore throat. Respiratory: Negative for cough and shortness of breath. Cardiovascular: Negative for chest pain. Gastrointestinal: Positive for diarrhea (soft stool, intermittent) and nausea. Negative for vomiting. Genitourinary: Positive for menstrual problem. Negative for pelvic pain and vaginal bleeding. Objective BP 110/72 Pulse 111 Temp 36.6 C (97.8 F) (Tympanic) Resp 18 Wt 96.1 kg (211 lb 12.8 oz) LMP 10/08/2022 (Exact Date) BMI 37.52 kg/m Physical Exam Vitals and nursing note reviewed. Constitutional: General: She is not in acute distress. Appearance: Normal appearance. She is not toxic-appearing. HENT: Mouth/Throat: Mouth: Mucous membranes are moist. Eyes: Conjunctiva/sclera: Conjunctivae normal. Cardiovascular: Rate and Rhythm: Normal rate and regular rhythm. Pulmonary: Effort: Pulmonary effort is normal. Breath sounds: Normal breath sounds. Abdominal: General: Abdomen is flat. Palpations: Abdomen is soft. Tenderness: There is no abdominal tenderness. There is no right CVA tenderness, left CVA tenderness, guarding or rebound. Neurological: Mental Status: She is alert. Assessment and Plan ASSESSMENT/PLAN: 1. Missed menses - ICD9: 626.4, ICD10: N92.6 (primary diagnosis) - HCG QUAL UR B/O- NEGATIVE -Advised patient to continue monitoring symptoms. test today is negative. -Advised to go to the ER with any abdominal pain, pelvic pain or abnormal vaginal bleeding. -Follow-up with wool batting worker on 11/29/2022 as scheduled. -Possibly irregular menses due to stopping control/being noncompliant with it. 2. Fatigue, unspecified type - ICD9: 780.79, ICD10: R53.83 3. Nausea - ICD9: 787.02, ICD10: R11.0 Diagnosis and treatment plan were discussed and questions were answered to the patient's satisfaction. Pt acknowledged understanding of concepts and follow up plan. Specific signs and symptoms that would indicate the need for higher level of care were discussed in detail warranting prompt ER evaluation. DIANNE Henderson documented in this encounter [facility] 10-12-2022 Miscellaneous Notes Patients 11/10/21 appointment needs rescheduled due to provider vacation, called patient to reschedule but no answer and the VM box was full so could not leave message. I have set out a [employer] message regarding this issue. According to patients chart this appointment is not for any medications there for it can be rescheduled to the firs available whether in person or VV documented in this encounter [facility] 09-23-2022 Miscellaneous Notes This was probable cause of slight elevation. No need for repeat labs at this time. Thank you June Pineda APRN.CNP Patient returned call and went over results, notes from June Pineda VERIFYING SPECIALIST, patient said she was ill recently with URI, no fever, no steroids, no UTI symptoms. Left message for return call Please let patient know lab work was all within acceptable ranges, but white blood cells were slightly elevated. Has she been ill recently or had any steroids? Any fever? Skin infections? Difficulty or painful urination? Thank you June Pineda APRN.JACQUELYN documented in this encounter [facility] 09-16-2022 Instructions Salud Scruggs APRN.CNP - 09/16/2022 4:10 PM EST Oral Contraceptives: The Pill Beginning the Pill Pills come in either a 21 day pack or a 28 day pack. With the 21 day pack you will take one pill for 21 days then no pill for 7 days, during which time you will have what is known as withdrawal bleeding. The 28 day pack allows you to take a pill every day of the cycle with no interruptions. The first 21 pills are the pills with the active ingredients and the last 7 are the nonmedical pills (placebo) or they may contain iron. There will be bleeding during the week you are taking the nonmedical pills. The advantage to the 28 day pack is that you don t have to keep track of when you stopped the pill. There are a group of 28 day pills that contain 24 active pills and only 4 placebo pills. These are formulated to give you a underwater hunter trapper period. Unless otherwise instructed, you should start your pills the Monday following your first day of bleeding with your next period (if your period starts on a Monday, you should start pills the same day) Read your information packet that comes with the pills. Pill Benefits The pill is the most popular method of reversible control being used today. Millions of women rely on oral contraceptives as their control method. It is important to have an examination by your physician to determine if the pill is safe for you. There are several advantages associated with the pill: it is 97-98% effective when used correctly; may improve acne; periods are more regular and less painful; there is less iron deficiency anemia in pill users. half-way use is associated with a decreased incidence of ovarian and uterine cancer. There is also no evidence that the pill increases the incidence of any cancer. How Oral Contraceptives Work Oral contraceptives come in two varieties. One is the combination pill which contains both estrogen and progesterone. Combination pills are considered 98-99% effective in preventing . This pill comes in either monophasic, which delivers the same amount of estrogen and progesterone throughout the cycle; and triphasic, which try tries to mimic the normal hormone cycle by changing the levels of the hormones in the pills during the month. There is no real advantage to taking the one over the other. The other type of pill only contains progesterone. It is best used for women who can t take estrogen. This type of pill is slightly less effective than the combination pill in preventing . It is VERY important to take the progesterone only pill at the same time every day. Oral contraceptives prevent ovulation (release of an egg from the ovary) by suppressing the pituitary gland s action. The pill does NOT prevent sexually transmitted disease. Obtaining a Prescription It is important to see your doctor before starting oral contraceptives so that you can have a full medical history taken and a physical examination given. Certain medical conditions may make the pill inappropriate for you, therefore it is very important to be honest and as complete as possible with the information you share with your doctor. The types of predisposing factors which would make the pill a poor choice of control would include: History of blood clots Stroke Serious liver disease or impaired liver function Unexplained vaginal bleeding or Cancer of the reproductive system Active gall bladder disease Hypertension Possible Side Effects It can take up to three months for your body to become adjusted to the pill. The more common side effects experienced at this time are: breakthrough spotting or bleeding, which is bleeding at any other time other than when you should be having a period; nausea or vomiting; breast tenderness; and mild fluid retention. There is no parts counterman weight gain with the use of the pill. Breakthrough bleeding is the most common complaint of new pill users. There is no way to predict who will have it and there is no way of preventing it. Breakthrough bleeding usually subsides on its own with no further treatment after the first three months of taking the pill. If these symptoms continue to occur after the first three months you should check with your physician to see if there is any physical cause and possibly change to another control pill. Problems: Missed 1 pill: Take 2 pills the next day. Missed 2 pills: Take 2 pills the next day and 2 pills the following day. Also use another form of control (condoms) along with the pill for the rest of the month. Missed 3 or more pills: You have two choices. You can take two pills each day until you are on schedule, plus use an additional form of control along with the pill for the rest of the month. Or you can stop the pill and start a completely new pack of pills the next Monday. You must use another form of control with the pill for at least the first two weeks of the new pack. You re ill and you have been vomiting or have diarrhea: You must use another form of control with the pill since the pill may not be fully absorbed during your illness. Continue to use the added control until the end of the cycle. Desire to become : Stop using the pill for one month before trying to become . Taking other medications: The control pill is less effective when you take the antibiotic Rifampin, epilepsy (seizure) drugs such as phenytoin, carbamazepine, phenobarbital, topiramate and some medications for HIV. Let your doctor know if you start taking any of these medications while on the pill. Symptoms to Notify Your Doctor with Immediately: Pain in your chest or legs Continuous blurred vision Severe headaches Slurred speech Tingling or weakness on one side of your body Shortness of breath Swelling of one leg Refills of Control Pills You need to see a doctor every year for a refill of your prescription. This is necessary in order that your health can be monitored closely while you are taking control pills. If your prescription should before your next scheduled appointment you can usually get a one month extension from your doctors office if you call during regular business hours about one week before you need to start the new package of pills. This allows the physician to refer to your chart for necessary health information. documented [facility] [facility] 09-16-2022 History of Presen t illness Narrative [employer] offered:Patient sana Martinez is a 37 year old No obstetric history on file. who presents for an annual gynecologic exam without complaints. Menses: cycles every 30-35 days and 5 days of flow. Contraception: condoms. Had been taking GUILLAUME that she ordered online until 2 months ago due to finances HPV vaccine: No Last Pap: normal over 10 years ago HPV: unknown History of abnormal pap: No Last mammogram: bnormal, see below Abnormal mammogram: Yes, 2020 biopsy right breast fibroadenoma Sexually active: Yes History of STDS: None Patient concerns for STD exposure: No. Time with current partner: 15 months Pain with intercourse: No Postcoital bleeding: No OB History No obstetric history on file. Home Inspector History LMP: 08/16/2021 (Approximate), Having periods Age at Menarche: Age at First : Age at Menopause: Home Inspector History Comments: Sexual Activity: Yes; Male Contraception: Condom PAST MEDICAL HISTORY Diagnosis Date NEGATIVE MEDICAL HISTORY PAST SURGICAL HISTORY Procedure Laterality Date BREAST BIOPSY NEEDLE RIGHT Right 09/17/2021 CHOLECYSTECTOMY HX 2015 FAMILY HISTORY Problem Relation Age of Onset other (MVP, IBS) Mother Cancer Sister cervical SOCIAL HISTORY Social History Tobacco Use Smoking status: Never Smokeless tobacco: Never Vaping Use Vaping Use: current everyday user Substances: Nicotine, Flavoring Devices: Disposable Substance Use Topics Alcohol use: No Drug use: No REVIEW OF SYSTEMS Abdomen: No abdominal pain, nausea, vomiting, diarrhea, or constipation. No bloating, early satiety, indigestion, or increased flatulence. Bladder: No dysuria, gross hematuria, urinary frequency, urinary urgency, or incontinence. Breast: No breast lumps, nipple d/c, overlying skin changes, redness or skin retraction. Denies family history of clotting disorders. Denies personal history of DVT, CVD, hypertension or migraine with aura. Non smoker. Allergies and current medication updated:Yes EXAM: BP 110/80 Resp 20 Ht 5' 3.78 (1.62m) Wt 219 lb 6.4 oz (99.5kg) LMP 08/08/2022 BMI 37.92 kg/(m^2). GENERAL: pleasant, female in no apparent distress HEENT: Normocephalic, atraumatic, mucus membranes moist, and no lesions NECK: Supple, full range of motion, no adenopathy, and thyroid normal DERMATOLOGY: Normal, without lesions, non-icteric, and non-hirsute BREAST: soft, non-tender, symmetric, no dominant mass, normal nipple-areolar complex, no lymphadenopathy, and no nipple discharge CHEST: Normal inspiratory effort ABDOMEN: soft, non-tender, and no masses PELVIC: external genitalia normal, normal Bartholin's glands, urethra, Somerton's glands, no vulvar lesions, no cervical lesions, good vaginal support, physiologic discharge present, normal appearing perineal body and perianal region BIMANUAL: uterus normal size, shape and consistency, no adnexal masses, and non-tender RECTOVAGINAL: deferred. NEURO: alert and oriented x3,exam grossly non-focal EXTREMITIES: normal ASSESSMENT/PLAN: 1) Health maintenance: Pap done with HPV. Mammogram starting age 40. Nutrition, exercise and routine health maintenance exams reviewed. 2) Contraception: condoms. Contraceptive options reviewed and information provided. 3) STD screening: Declined STD check. 4) Follow up one year or sooner as needed Salud Scruggs APRN.COORDINATE MEASURING EQUIPMENT OPERATOR documented in this encounter [facility] 09-16-2022 Miscellaneous Notes Spoke to patient and scheduled. Consult to Behavior health, please assist and advice. Thank you, Bertha Sultana PSS documented in this encounter [facility] 09-14-2022 History of Presen t illness Narrative BEHAVIORAL HEALTH SOCIAL WORK QUICK NOTE Provider Action/FYI Chart review completed Patient needing appointment scheduled with Db Kunz CNP. Patient identified for [facility] from: PCP Reason for referral: Resources Behavioral Health Resources: Psychiatry med management [facility] encounter type: Chart Review Attempts to Outreach: 1 attempt Referral made: Psychiatry - Internal Final Disposition: Resources given Patient Discharged?: Yes Patient reported that caregiver was able to meet their needs today?: N/A Pt identified by name and . Provider interested in patient seeing psychiatry at [facility], specifically Db Kunz CNP. SW routing chart to VIKI, Shannan Wellington who can assist with patient scheduling. No needs further from this SW at this time. ADRIANA Perez, ACM-SW documented in this encounter [facility] 09-14-2022 History of Presen t illness Narrative Reason for Visit Patient presents with: Follow Up: lower back pain Michelle Iyer is a 37 year old female who presents here today for Above Complaints.. Health Maintenance HEPATITIS B(1 of 3 - 3-dose series) HEPATITIS C SCREENING DTAP,TDAP,TD(1 - Tdap) PAP TESTING HPV TESTING COVID-19 VACCINE(2 - Booster for Amy series) DEPRESSION ASSESSMENT INFLUENZA(1) HPI She has been to see the pain management for her back pain issues and they have put her on relafen. And ordered an xr. She thinks she will try the medication and see if she has any benefit from it. Nothing else has changed or was made worse. Bp is normal . She has been on the upswing for weight, the highest she was is 227 and she lost 70 pounds and gained all of it after the abilify. She is atarax too. Diet- diet recall- she has not eaten any yet today, usually eats around 2 times a day or more. When she eats she is eating fruit, veggies, cereal etc. Sleep- is trying her best to get sleep Stress Exercise- limited, due to back issues Patient stopped the abilify due to weight gain. Her diagnosis is not very clear so we will send her to [facility], she may benefit from Seeing Db. No problem-specific Assessment & Plan notes found for this encounter. PAST MEDICAL HISTORY Diagnosis Date NEGATIVE MEDICAL HISTORY PAST SURGICAL HISTORY Procedure Laterality Date BREAST BIOPSY NEEDLE RIGHT Right 09/17/2021 CHOLECYSTECTOMY HX 2014 FAMILY HISTORY Problem Relation Age of Onset other (MVP, IBS) Mother Cancer Sister cervical Social History Tobacco Use Smoking status: Never Smokeless tobacco: Never Vaping Use Vaping Use: current everyday user Substances: Nicotine, Flavoring Devices: Disposable Substance Use Topics Alcohol use: No Drug use: No Past medical history, appointments, medications, allergies reviewed. Pertinent Lab/Diagnostic Studies are reviewed and discussed today Current Outpatient Medications: nabumetone (RELAFEN) 500 mg tablet gabapentin (NEURONTIN) 100 mg capsule ARIPiprazole (ABILIFY) 2 mg tablet hydrOXYzine HCl (ATARAX) 25 mg tablet Review of Systems CONSTITUTIONAL: No fevers, chills night sweats, unintended weight loss CARDIOVASCULAR: No chest pain, dyspnea, palpitations, orthopnea, PND, ankle edema. PULM: No dyspnea, unexplained cough. GI: No dysphagia/odynophagia, problematic reflux, constipation, diarrhea, changes in stool habits, hematochezia, melena. : No new urinary complaints, including dysuria, gross hematuria or pyuria. NEURO: No new balance problems, peripheral weakness/paresthesias or numbness of concern. Physical Exam BP 120/72 (BP Site: Left Arm, BP Position: Sitting, BP Cuff Size: Large Adult) Pulse 68 Temp 37.7 C (99.8 F) Resp 14 Ht 162.6 cm (5' 4 ) Wt 98 kg (216 lb) LMP 08/16/2021 (Approximate) SpO2 98% BMI 37.08 kg/m General appearance: Well appearing, alert, in no acute distress, well-hydrated, well nourished. Skin: Skin color, texture, turgor normal, no suspicious rashes or lesions Head: Normocephalic, no masses, lesions, tenderness or abnormalities Eyes: Anicteric sclera. Pupils are equally round and reactive to light. Extraocular movements are intact. Ears: External ears normal, canals clear Nose/Sinuses: Nares normal, septum midline, mucosa normal, no drainage or sinus tenderness Oropharynx: Lips, mucosa, and tongue normal, teeth and gums normal, oropharynx normal Neck: Supple, no adenopathy; thyroid symmetric, normal size, no bruits Back: Normal exam Lungs: Lungs clear to auscultation. No wheezing, rhonchi, rales Heart: RRR without murmur, gallop, or rubs. No ectopy Abdomen: Normal abdominal exam, Abdomen soft, non-tender. Bowel sounds normal. No masses, organomegaly Extremities: No deformities, edema, skin discoloration, clubbing or cyanosis. Good capillary refill. Musculoskeletal: No joint swelling, deformity, or tenderness Peripheral pulses: Normal Neuro: Gait normal. Reflexes normal and symmetric. Sensation grossly intact. phy ASSESSMENT/PLAN: 1. Annual physical exam - ICD9: V70.0, ICD10: Z00.00 (primary diagnosis) - Counseled on healthy diet and regular exercise - Calcium intake with supplements or by diet of 1000 mg/day for under 50, 0531-5582 mg/day for 50+ - LIPID PANEL BASIC - COMP METABOLIC PANEL - CBC + DIFF 2. Encounter for gynecological examination without abnormal finding - ICD9: V72.31, ICD10: Z01.419 - Completed pelvic and breast exam - Encouraged monthly BSE - Follow up for annual exam in one year. - DEPRESSION SCREENING/ASSESSMENT - CONSULT TO GYNECOLOGY 3. Special screening examination for viral disease - ICD9: V73.99, ICD10: Z11.59 - HEP C AB IA W/CONF SCRN 4. Excessive weight gain - ICD9: 783.1, ICD10: R63.5 - TSH BLD 5. Mood disorder (HCC) - ICD9: 296.90, ICD10: F39 - CONSULT TO PRIMARY CARE BEHAVIORAL HEALTH ADULT Brook Gaviria MD documented in this encounter [facility] 09-08-2022 Note HNO ID: [id number] Author: Almita Ibarra APRN.COORDINATE MEASURING EQUIPMENT OPERATOR Service: ? Author Type: Nurse Practitioner Type: Progress Notes Filed: 09/08/2022 12:49 PM Note Text: [facility] Today's Date: 09/08/2022 Last Visit: N/A Name: Michelle Iyer : 1985 Purpose: New Patient Consultation Chief complaint: Low Back Pain Interval History: N/A Initial HPI: (Obtained on 09/08/2022) Michelle Iyer is a 37 year old year-old female; who presents having been referred by Brook Gaviria, for evaluation and management of the above-mentioned chief complaint. This has been present for the past 19 years. The onset of symptoms was gradual onset and was without associated trauma. States she she was with her first child she had gone to the ED for increased LBP and leg pain. Dx with sciatica. Reports she has had pain since this time. Reports she has frequent leg numbness and body shaking. She does not follow neurology. 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 She also reports BL hand numbness and tingling for the last couple of years. Again no injury. She does not endorse neck pain Treatments to date include the following: Medications (See below). Pain Description: Timing: constant Character: Sharp Primary Location: Low Back Radiation: BL legs to her feet Exacerbating factors: unable to pinpoint exacerbating factors/positions Relieving factors: unable to pinpoint positions/factors that are mitigating Interferes with: physical activity, walking, and social activities The patient reports 2-3 hours of uninterrupted sleep per night The patient denies difficulty with bowel or bladder control and arm or leg weakness. Current Status: INTAKE PAIN ASSESSMENT 07/12/2022 09/08/2022 Are you having pain associated with your visit today? Yes, Provider notified Yes, Provider notified Pain Scales Verbal (Numeric Rating or Visual Analog Scale) Verbal (Numeric Rating or Visual Analog Scale) Pain Level 6 6 Pain Location Back-Lower Back-Lower Description Aching Stiffness;Shooting;Sharp;Dull;A mahesh;Radiating Duration Amount of Time 2 - Duration Units Years Years Frequency Continuous Continuous Intervention/Comfort measure Medication Reposition;Relaxation;Positioni ng Current Pain Medications: Opioids: NSAIDS: Anti-depressants: Anti-convulsants: Muscle relaxants: Others: Analgesia: N/A Current Anti-Coagulant Use: No PAST Pain Medications (for the chief complaint(s)): NSAIDS: Motrin (Ibuprofen) Anti-convulsants: Neurontin (Gabapentin) had SE Allergies: ALLERGIES No Known Allergies Data Reviewed: Reviewed personally on today's date 09/08/2022 Relevant Imaging: XR Lumbar Spine 07/12/22: RESULT: Counting reference: Lumbosacral junction. For the purposes of this report, L5-S1 is considered the last lumbar-type disc space and L4-5 is considered the level of the iliac crest. FINDINGS: Frontal, lateral and cone-down radiographs of the lumbosacral spine demonstrate five lumbar type vertebral bodies. The vertebral body heights and intervertebral disc spaces are well maintained with normal alignment. The soft tissues are unremarkable. Recent labs: Creatinine Date Value Ref Range Status 03/16/2021 0.78 0.58 - 0.96 mg/dL Final Pain Procedures: DATE PROCEDURE IMPROVEMENT None to date at this practice Compliance: PDMP website checked and validated. All prescriptions have been APPROPRIATELY filled. No suspicious activity was identified. 09/08/2022 by Almita Ibarra APRN.COORDINATE MEASURING EQUIPMENT OPERATOR Risk Assessment: STORMY-7: STORMY - 7 SCORES 01/05/2022 09/08/2022 STORMY-7 Score 19 2 (0-4) minimal anxiety, (5-9) mild anxiety, (10-14) moderate anxiety, (15-21) severe anxiety PHQ-9: PHQ-9 01/05/2022 09/08/2022 Score 17 0 (0-4) minimal depression, (5-9) mild depression, (10-14) moderate depression, (15-19) moderately severe depression, (20-27) severe depression Opioid Risk Tool: Family History of Substance Abuse: 0 - No Personal History of Substance Abuse: 0 - No Age between 16-45: 1 - Yes History of Pre-Adolescence Sexual Abuse: 0 - No Psychological Disease: Yes ADD/ADHD/OCD/Bipolar/Schizophre alonzo: 2 - Yes Depression: No Risk Total: 3 Total Score Risk Category: Low Risk 0-3 (0-3, low risk or no risk; 4-7, moderate risk, 8+, high risk) Current Medications, Past Medical History, Past Surgical History, Family History, Social History and Review of Systems: On today's date, 09/08/2022, noted above, I have confirmed and edited as necessary, the PFSH and ROS obtained by others. Physical Exam: 09/08/22 0917 Pulse: 82 Resp: 16 SpO2: 99% Constitutional:morbidly obese HEENT: Normal Cephalic, Atraumatic, Non-icteric sclera Eyes: Conjunctiva clear. No discharge from eyes Cardiovascular: Appears well per (more content not included)... [facility] 09-08-2022 Miscellaneous Notes Sent internal referral Confirmation#: [id number] documented in this encounter [facility] 09-08-2022 Note HNO ID: [id number] Author: Lurdes Mathias MA Service: ? Author Type: Triage Assistant Type: Progress Notes Filed: 09/08/2022 12:49 PM Note Text: Review of Systems Constitutional: Negative for activity change, chills, fever and unexpected weight change. Gastrointestinal: Negative for bowel retention or incontinence Genitourinary: Negative for difficulty urinating. Negative for bladder retention or incontinence Musculoskeletal: Positive for arthralgias, back pain, myalgias, neck pain and neck stiffness. Negative for gait problem and joint swelling. Neurological: Positive for numbness and headaches. Negative for weakness. Psychiatric/Behavioral: Positive for sleep disturbance. Negative for dysphoric mood and suicidal ideas. The patient is not nervous/anxious. [facility] 09-08-2022 Instructions Almita Ibarra APRN.JACQUELYN - 09/08/2022 9:37 AM EST Activity as tolerated Use Ice and/or heat as tolerated as needed documented in this encounter [facility] 09-08-2022 History of Presen t illness Narrative [facility] Today's Date: 09/08/2022 Last Visit: N/A Name: Michelle Iyer : 1985 Purpose: New Patient Consultation Chief complaint: Low Back Pain Interval History: N/A Initial HPI: (Obtained on 09/08/2022) Michelle Iyer is a 37 year old year-old female; who presents having been referred by Brook Gaviria, for evaluation and management of the above-mentioned chief complaint. This has been present for the past 19 years. The onset of symptoms was gradual onset and was without associated trauma. States she she was with her first child she had gone to the ED for increased LBP and leg pain. Dx with sciatica. Reports she has had pain since this time. Reports she has frequent leg numbness and body shaking. She does not follow neurology. 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 She also reports BL hand numbness and tingling for the last couple of years. Again no injury. She does not endorse neck pain Treatments to date include the following: Medications (See below). Pain Description: Timing: constant Character: Sharp Primary Location: Low Back Radiation: BL legs to her feet Exacerbating factors: unable to pinpoint exacerbating factors/positions Relieving factors: unable to pinpoint positions/factors that are mitigating Interferes with: physical activity, walking, and social activities The patient reports 2-3 hours of uninterrupted sleep per night The patient denies difficulty with bowel or bladder control and arm or leg weakness. Current Status: INTAKE PAIN ASSESSMENT 07/12/2022 09/08/2022 Are you having pain associated with your visit today? Yes, Provider notified Yes, Provider notified Pain Scales Verbal (Numeric Rating or Visual Analog Scale) Verbal (Numeric Rating or Visual Analog Scale) Pain Level 6 6 Pain Location Back-Lower Back-Lower Description Aching Stiffness;Shooting;Sharp;Dull;A mahesh;Radiating Duration Amount of Time 2 - Duration Units Years Years Frequency Continuous Continuous Intervention/Comfort measure Medication Reposition;Relaxation;Positioni ng Current Pain Medications: Opioids: NSAIDS: Anti-depressants: Anti-convulsants: Muscle relaxants: Others: Analgesia: N/A Current Anti-Coagulant Use: No PAST Pain Medications (for the chief complaint(s)): NSAIDS: Motrin (Ibuprofen) Anti-convulsants: Neurontin (Gabapentin) had SE Allergies: ALLERGIES No Known Allergies Data Reviewed: Reviewed personally on today's date 09/08/2022 Relevant Imaging: XR Lumbar Spine 07/12/22: RESULT: Counting reference: Lumbosacral junction. For the purposes of this report, L5-S1 is considered the last lumbar-type disc space and L4-5 is considered the level of the iliac crest. FINDINGS: Frontal, lateral and cone-down radiographs of the lumbosacral spine demonstrate five lumbar type vertebral bodies. The vertebral body heights and intervertebral disc spaces are well maintained with normal alignment. The soft tissues are unremarkable. Recent labs: Creatinine Date Value Ref Range Status 03/16/2021 0.78 0.58 - 0.96 mg/dL Final Pain Procedures: DATE PROCEDURE IMPROVEMENT None to date at this practice Compliance: PDMP website checked and validated. All prescriptions have been APPROPRIATELY filled. No suspicious activity was identified. 09/08/2022 by Almita Ibarra APRN.COORDINATE MEASURING EQUIPMENT OPERATOR Risk Assessment: STORMY-7: STORMY - 7 SCORES 01/05/2022 09/08/2022 STORMY-7 Score 19 2 (0-4) minimal anxiety, (5-9) mild anxiety, (10-14) moderate anxiety, (15-21) severe anxiety PHQ-9: PHQ-9 01/05/2022 09/08/2022 Score 17 0 (0-4) minimal depression, (5-9) mild depression, (10-14) moderate depression, (15-19) moderately severe depression, (20-27) severe depression Opioid Risk Tool: Family History of Substance Abuse: 0 - No Personal History of Substance Abuse: 0 - No Age between 16-45: 1 - Yes History of Pre-Adolescence Sexual Abuse: 0 - No Psychological Disease: Yes ADD/ADHD/OCD/Bipolar/Schizophre alonzo: 2 - Yes Depression: No Risk Total: 3 Total Score Risk Category: Low Risk 0-3 (0-3, low risk or no risk; 4-7, moderate risk, 8+, high risk) Current Medications, Past Medical History, Past Surgical History, Family History, Social History and Review of Systems: On today's date, 09/08/2022, noted above, I have confirmed and edited as necessary, the PFSH and ROS obtained by others. Physical Exam: 09/08/22 0917 Pulse: 82 Resp: 16 SpO2: 99% Constitutional:morbidly obese HEENT: Normal Cephalic, Atraumatic, Non-icteric sclera Eyes: Conjunctiva clear. No discharge from eyes Cardiovascular: Appears well perfused Lymphatic: No visible regional lymphadenopathy Skin: No visible rashes or ecchymosis Psychiatric: Flat affect, Alert, Pleasant Neuro-Upper: Sensation: Grossly intact to light touch in both upper limbs (C5-T1) dermatomes Strength: Deltoid (C5): 5 left, 5 Right Biceps (C6): 5 left, 5 Right Triceps (C7): 5 left, 5 Right Wrist Extensors (C8): 5 left, 5 Right Abduct. Pollicis Brevis (T1): 5 left, 5 Right Muscle Tone: Normal and symmetric throughout, without clonus Reflexes: Normal 2+ and symmetric biceps, triceps, brachioradialis Boucher: Negative (Normal) bilaterally LUMBAR MUSCULOSKELETAL/NEURO EXAM Inspection: - Symmetric without atrophy Posture: Normal intact spinal curves Gait: Normal Tandem Walk: Intact Palpation: - Lumbar Paraspinal Tenderness: Concordant in the Bilateral lumbar paraspinals - Paraspinal Spasms: None - Facet Loading: Right-negative; Left-negative - Greater Trochanter: None tenderness Bilateral Strength: LEFT RIGHT Iliopsoas (L2) 5 5 Quadriceps (L3) 5 5 Anterior Tibialis (L4): 5 5 Exten Hallucis Longus (L5) 5 5 Gastrocnemius (S1): 5 5 Muscle Tone: - Normal and symmetric Neural Tension Signs: -Straight Leg Exam Negative Bilateral lower limb(s) -Contralateral Straight Leg Raise Negative Bilateral lower limb(s) Sensation: - intact to light touch in the L2-S2 Bilateral lower limb dermatomes Reflexes: LEFT RIGHT Patellar (L4) Normal 2+ Normal 2+ Achilles (S1) Normal 2+ Normal 2+ Clonus Negative Negative Sacroiliac Maneuvers: - SIJ tenderness: Negative Bilateral Berenice's Signs: Deferred Diagnoses: (M54.42, M54.41, G89.29) Chronic bilateral low back pain with bilateral sciatica (primary encounter diagnosis) (R20.8) Other disturbances of skin sensation (M54.2) Neck pain Impression & Plan: 37 year old female with significant past medical history for depression, who presents with complaint(s) of chronic low back pain with numbness and tingling of bilateral upper and lower extremities. States the low back pain started approximately 19 years ago while with her first child. Reports pain is just progressively gotten worse over the years Reports she frequently has shaking episodes with her symptoms. Denies tremors or history of seizures. She does not follow neurology. She has not had any recent therapy or medication treatment. She has tried gabapentin in the past but this caused her to feel drowsy. Michelle Iyer would benefit from the following to decrease pain, improve function and/or work participation, and improve quality of life: Medications: Refill: Requested Prescriptions Signed Prescriptions Disp Refills nabumetone (RELAFEN) 500 mg tablet 60 tablet 3 Sig: Take 1 tablet by mouth twice daily as needed for pain (WITH FOOD). NSAIDS use(s), side effects and risks of long-term side effects were reviewed today. Recommend use of OTC famotidine or PPI if not already taking while using any NSAIDS. Patient with verbalized understanding. STORMY-7/PHQ-2, and ORT: 09/08/2022 Completed and reviewed, low risk Functional Voodoo: Physical Therapy (Land-based) Additional Studies: EMG BL UE and BL LE, Cervical XR Referrals: None Additional: Lumbar MRI if no improvement with the above Consider Neuro referral Patient is happy and agreeable with this plan. All questions were answered and patient verbalized understanding. Depending on response to the above plan, consider: Consider Lyrica Trial Follow-up: 6-8 weeks for medication evaluation, optimization and refill as appropriate Attribution: In addition to reviewing the information noted above, some elements copied from my most recent clinical note(s), including the physical exam (completed in entirety today), and the impression and plan sections, have been updated where appropriate. All reflect current medical decision making from today's date. Almita Ibarra APRN.[facility] Review of Systems Constitutional: Negative for activity change, chills, fever and unexpected weight change. Gastrointestinal: Negative for bowel retention or incontinence Genitourinary: Negative for difficulty urinating. Negative for bladder retention or incontinence Musculoskeletal: Positive for arthralgias, back pain, myalgias, neck pain and neck stiffness. Negative for gait problem and joint swelling. Neurological: Positive for numbness and headaches. Negative for weakness. Psychiatric/Behavioral: Positive for sleep disturbance. Negative for dysphoric mood and suicidal ideas. The patient is not nervous/anxious. documented in this encounter [facility] 07-12-2022 History of Presen t illness Narrative Reason for Visit Patient presents with: Back Pain: x 2 years 04/01 Michelle Iyer is a 37 year old female who presents here today for Above Complaints.. Health Maintenance HEPATITIS B(1 of 3 - 3-dose series) HEPATITIS C SCREENING DTAP,TDAP,TD(1 - Tdap) PAP TESTING HPV TESTING COVID-19 VACCINE(2 - Booster for Amy series) INFLUENZA(1) HPI Back pain: going on for 2 yeares or more. It is in the lower back. This pain never started with injury at work or home. It has been there ever since. Constant since it started, it is sometimes less but when it gets bad it is 6/10. Pain is aching, dull, sometimes sharp, matti job makes the pain worse. She cannot do anything physical without it hurting really bad. Nothing relieves the pain, she was on gabapentin in the past but it just made her tired and did not help the pain so she did not take it. The pain is all in the lower back, it shoots down the knees. Last 2 weeks she started hearing popping so she has come in. Denies bowel and bladder issues. Denies sensation changes No problem-specific Assessment & Plan notes found for this encounter. PAST MEDICAL HISTORY Diagnosis Date NEGATIVE MEDICAL HISTORY PAST SURGICAL HISTORY Procedure Laterality Date BREAST BIOPSY NEEDLE RIGHT Right 09/17/2021 CHOLECYSTECTOMY HX 2015 FAMILY HISTORY Problem Relation Age of Onset other (MVP, IBS) Mother Cancer Sister cervical Social History Tobacco Use Smoking status: Never Smokeless tobacco: Never Vaping Use Vaping Use: current everyday user Substances: Nicotine, Flavoring Devices: Disposable Substance Use Topics Alcohol use: No Drug use: No Past medical history, appointments, medications, allergies reviewed. Pertinent Lab/Diagnostic Studies are reviewed and discussed today Current Outpatient Medications: gabapentin (NEURONTIN) 100 mg capsule ARIPiprazole (ABILIFY) 2 mg tablet hydrOXYzine HCl (ATARAX) 25 mg tablet Review of Systems CONSTITUTIONAL: No fevers, chills night sweats, unintended weight loss CARDIOVASCULAR: No chest pain, dyspnea, palpitations, orthopnea, PND, ankle edema. PULM: No dyspnea, unexplained cough. GI: No dysphagia/odynophagia, problematic reflux, constipation, diarrhea, changes in stool habits, hematochezia, melena. : No new urinary complaints, including dysuria, gross hematuria or pyuria. NEURO: No new balance problems, peripheral weakness/paresthesias or numbness of concern. Physical Exam BP 116/60 (BP Site: Left Arm, BP Position: Sitting, BP Cuff Size: Large Adult) Pulse 101 Temp 37.4 C (99.4 F) Resp 12 Ht 162.6 cm (5' 4 ) Wt 96.2 kg (212 lb) LMP 08/16/2021 (Approximate) SpO2 99% BMI 36.39 kg/m General appearance: Well appearing, alert, in no acute distress, well nourished. Skin: Skin color, texture, turgor normal, no suspicious rashes or lesions Head: Normocephalic, no masses, lesions, tenderness or abnormalities Eyes: Anicteric sclera. Pupils are equally round and reactive to light. Extraocular movements are intact. Lungs: Lungs clear to auscultation. No wheezing, rhonchi, rales Heart: RRR without murmur, gallop, or rubs. Back: straight and symmetric, tenderness along lower back , no SI joint tenderness, no CVA tenderness, Full ROM, LE ext reflexes are 2+ and symmetric, LE ext motor strenght and sensory exam are normal, SLR was unequivocal ASSESSMENT/PLAN: 1. Chronic bilateral low back pain with bilateral sciatica - ICD9: 724.2, 724.3, 338.29, ICD10: M54.42, M54.41, G89.29 (primary diagnosis) Unclear etiology Could be a mix of a sprain or disc disease. - Bedrest for 2-3 days - CONSULT TO PAIN MGT - XR LUMBAR GENERAL 3V AP/LAT/L5-S1 To ER for worsening symptoms, mental status changes, SOB, or side effects of meds that are severe especially allergic reactions causing air way compromise. 2. Class 2 severe obesity with serious comorbidity and body mass index (BMI) of 36.0 to 36.9 in adult, unspecified obesity type (HCC) - ICD9: 278.01, V85.36, ICD10: E66.01, Z68.36 Brook Gaviria MD documented in this encounter [facility] 04-04-2022 Miscellaneous Notes NOV none MARILOU 01/05/22 Patient electronically sent a request for the following prescription(s) Pending Prescriptions Disp Refills GABAPENTIN 100 MG CAPSULE 30 capsule 2 Sig: take 1 capsule by mouth once daily GARY: Yes ARIPIPRAZOLE 2 MG TABLET 30 tablet 2 Sig: take 1/2 tablet by mouth once daily for 14 days then 1 tablet once daily for 14 days GARY: Yes Patient aware RX will be sent to pharmacy. No need to notify patient. Please review. Diane Kay MA documented in this encounter [facility] Evaluation + Plan note No data available for this section [facility] Diagnosis Sciatica, unspecified laterality Sleep disturbance Sleep disturbance, unspecified [facility] Diagnosis Chronic bilateral low back pain with bilateral sciatica- Primary Class 2 severe obesity with serious comorbidity and body mass index (BMI) of 36.0 to 36.9 in adult, unspecified obesity type (HCC) documented in this encounter [facility] note* Diagnosis Chronic bilateral low back pain with bilateral sciatica- Primary Other disturbances of skin sensation Neck pain Cervicalgia documented in this encounter [facility] note* Diagnosis Annual physical exam- Primary Routine general medical examination at a health care facility Encounter for gynecological examination without abnormal finding Routine gynecological examination Special screening examination for viral disease Special screening examination for unspecified viral disease Excessive weight gain Abnormal weight gain Mood disorder (HCC) Unspecified episodic mood disorder documented in this encounter [facility] note* Diagnosis Encounter for gynecological examination (general) (routine) without abnormal findings- Primary General counseling and advice for contraceptive management Other general counseling and advice for contraceptive management Screening for cervical cancer Screening for malignant neoplasm of the cervix Encounter for screening for human papillomavirus (HPV) Special screening examination for human papillomavirus (HPV) documented in this encounter [facility] note* Diagnosis Missed menses- Primary Absence of menstruation Fatigue, unspecified type Nausea Nausea alone documented in this encounter [facility] note* Diagnosis Annual physical exam- Primary Routine general medical examination at a health care facility Mass of right breast, unspecified quadrant documented in this encounter [facility] note* Diagnosis General counseling and advice for contraceptive management Other general counseling and advice for contraceptive management documented in this encounter [facility] note* Diagnosis Mass of right breast, unspecified quadrant documented in this encounter [facility] note* Diagnosis Dizziness- Primary Dizziness and giddiness Missed period Irregular menstrual cycle [facility] Discharge instructions No data available for this section [facility] Reason for referral (narrative)* Diagnostic Procedure Only (Routine) - Closed Specialty Diagnoses / Procedures Referred By Mary grace Referred To Contact XR IMAGING Diagnoses Chronic bilateral low back pain with bilateral sciatica Procedures XR LUMBAR GENERAL 3V AP/LAT/L5-S1 RADEX SPINE LUMBOSACRAL 2/3 VIEWS Brook Gaviria MD [address] [place] [address] Xr Imaging Referral ID Status Reason Start Date Expiration Date V isits Requested Visits Authorized [id number] Closed Auto-Generate d Referral 07/12/2022 08/11/2023 1 1 * Consult, Test, Treat (Routine) - Authorized Specialty Diagnoses / Procedures Referred By Contac t Referred To Contact Pain Management Diagnoses Chronic bilateral low back pain with bilateral sciatica Procedures CONSULT TO PAIN MGT OFFICE/OUTPATIENT [facility] 60-74 MINUTES Brook Gaviria MD [address] [place] [address] Referral ID Status Reason Start Date Expiration Date Visits Requested Visits Authorized [id number] Authorized PCP Requested Referral 07/12/2022 10/10/2022 1 1 [facility] for referral (narrative)* - Pending Review Specialty Diagnoses / Procedures Referred By Contac t Referred To Contact Physical Therapy Diagnoses Chronic bilateral low back pain with bilateral sciatica Procedures CONSULT TO PHYSICAL THERAPY Almita Ibarra, POLYSOMNOGRAPHY TECHNICIAN.COORDINATE MEASURING EQUIPMENT OPERATOR [address] [place] [address] Referral ID Status Reason Start Date Expiration Date V isits Requested Visits Authorized [id number] Pending Review 09/08/2022 12/07/2022 1 1 Electronically signed by Almita Ibarra POLYSOMNOGRAPHY TECHNICIAN.COORDINATE MEASURING EQUIPMENT OPERATOR at 09/08/2022 9:36 AM EST * Diagnostic Procedure Only (Routine) - Pending Review Specialty Diagnoses / Procedures Referred By Contac t Referred To Contact XR IMAGING Diagnoses Neck pain Procedures XR CERV OTHER 6V AP/LAT/FLX/EXT/OBL RADEX SPINE CERVICAL 6 OR MORE VIEWS Almita Ibarra POLYSOMNOGRAPHY TECHNICIAN.COORDINATE MEASURING EQUIPMENT OPERATOR [address] [place] [address] Xr Imaging Referral ID Status Reason Start Date Expiration Date Visits Requested Visits Authorized [id number] Pending Review Auto-Generat ed Referral 10/08/2023 1 1 Electronically signed by Almita Ibarra POLYSOMNOGRAPHY TECHNICIAN.COORDINATE MEASURING EQUIPMENT OPERATOR at 09/08/2022 9:36 AM EST [facility] for referral (narrative)* Diagnostic Procedure Only (Routine) - Authorized Specialty Diagnoses / Procedures Referred By Mary grace Referred To Contact BR IMAGING Diagnoses Mass of right breast, unspecified quadrant Procedures US BREAST LTD RT US BREAST UNI REAL TIME WITH IMAGE LIMITED Brook Gaviria MD [address] [place] [address] [facility] [address] [address] Referral ID Status Reason Start Date Expiration Date Visits Requested Visits Authorized [id number] Authorized Auto-Generat ed Referral 12/09/2022 01/08/2024 1 1 * Diagnostic Procedure Only (Routine) - Authorized Specialty Diagnoses / Procedures Referred By Mary grace Referred To Contact BR IMAGING Diagnoses Mass of right breast, unspecified quadrant Procedures PRIYANKA DIAGNOSTIC BILAT DIAGNOSTIC MAMMOGRAPHY COMPUTER-AIDED DETCJ BI Brook Gaviria MD [address] [place] [address] [facility] [address] [place] [address] Referral ID Status Reason Start Date Expiration Date Visits Requested Visits Authorized [id number] Authorized Auto-Generat ed Referral 12/09/2022 01/08/2024 1 1 [facility] for visit Narrative* Diagnostic Procedure Only (Routine) - Closed Specialty Diagnoses / Procedures Referred By Mayr grace Referred To Contact BR IMAGING Diagnoses Mass of right breast, unspecified quadrant Procedures PRIYANKA DIAGNOSTIC BILAT DIAGNOSTIC MAMMOGRAPHY COMPUTER-AIDED DETCJ Brook Sanderson MD [address] [place] [address] [facility] [address] [place] [address] Referral ID Status Reason Start Date Expiration Date V isits Requested Visits Authorized [id number] Closed Auto-Generate d Referral 12/09/2022 01/08/2024 1 1 [facility] Summary Purpose Family History No Family History Records FoundNo Family History Records FoundNo Family History Records Found Advance Directives No Advanced Directives Records FoundNo Advanced Directives Records FoundNo Advanced Directives Records Found Reason for Referral Specialty Diagnoses / Procedures Referred By Mary t Referred To Contact Gynecology Diagnoses Encounter for gynecological examination without abnormal finding Procedures CONSULT TO GYNECOLOGY OFFICE/OUTPATIENT [facility] 60-74 MINUTES Brook Gaviria MD [address] [place] [address] Referral ID Status Reason Start Date Expiration Date Visits Requested Visits Authorized [id number] Authorized PCP Requested Referral Auto-Generate d Referral 2 09/14/2023 1 1 Additional Source Comments Source Comments (unrecognize d section and content) In the event this informatio n is protected by the Federal Confidentiality of Alcohol and Drug Abuse Patient Records regulations: The Federal rules restrict any use of the information to criminally investigate or prosecute any alcohol or drug abuse patient.[facility] the event this information is protected by the Federal Confidentiality of Alcohol and Drug Abuse Patient Records regulations: The Federal rules restrict any use of the information to criminally investigate or prosecute any alcohol or drug abuse patient.[facility] the event this information is protected by the Federal Confidentiality of Alcohol and Drug Abuse Patient Records regulations: The Federal rules restrict any use of the information to criminally investigate or prosecute any alcohol or drug abuse patient.[facility] the event this information is protected by the Federal Confidentiality of Alcohol and Drug Abuse Patient Records regulations: The Federal rules restrict any use of the information to criminally investigate or prosecute any alcohol or drug abuse patient.[facility] the event this information is protected by the Federal Confidentiality of Alcohol and Drug Abuse Patient Records regulations: The Federal rules restrict any use of the information to criminally investigate or prosecute any alcohol or drug abuse patient.[facility] the event this information is protected by the Federal Confidentiality of Alcohol and Drug Abuse Patient Records regulations: The Federal rules restrict any use of the information to criminally investigate or prosecute any alcohol or drug abuse patient.[facility] the event this information is protected by the Federal Confidentiality of Alcohol and Drug Abuse Patient Records regulations: The Federal rules restrict any use of the information to criminally investigate or prosecute any alcohol or drug abuse patient.[facility] the event this information is protected by the Federal Confidentiality of Alcohol and Drug Abuse Patient Records regulations: The Federal rules restrict any use of the information to criminally investigate or prosecute any alcohol or drug abuse patient.[facility] the event this information is protected by the Federal Confidentiality of Alcohol and Drug Abuse Patient Records regulations: The Federal rules restrict any use of the information to criminally investigate or prosecute any alcohol or drug abuse patient.[facility] the event this information is protected by the Federal Confidentiality of Alcohol and Drug Abuse Patient Records regulations: The Federal rules restrict any use of the information to criminally investigate or prosecute any alcohol or drug abuse patient.[facility] the event this information is protected by the Federal Confidentiality of Alcohol and Drug Abuse Patient Records regulations: The Federal rules restrict any use of the information to criminally investigate or prosecute any alcohol or drug abuse patient.[facility] the event this information is protected by the Federal Confidentiality of Alcohol and Drug Abuse Patient Records regulations: The Federal rules restrict any use of the information to criminally investigate or prosecute any alcohol or drug abuse patient.[facility] the event this information is protected by the Federal Confidentiality of Alcohol and Drug Abuse Patient Records regulations: The Federal rules restrict any use of the information to criminally investigate or prosecute any alcohol or drug abuse patient.[facility] the event this information is protected by the Federal Confidentiality of Alcohol and Drug Abuse Patient Records regulations: The Federal rules restrict any use of the information to criminally investigate or prosecute any alcohol or drug abuse patient.[facility] the event this information is protected by the Federal Confidentiality of Alcohol and Drug Abuse Patient Records regulations: The Federal rules restrict any use of the information to criminally investigate or prosecute any alcohol or drug abuse patient.[facility] the event this information is protected by the Federal Confidentiality of Alcohol and Drug Abuse Patient Records regulations: The Federal rules restrict any use of the information to criminally investigate or prosecute any alcohol or drug abuse patient.[facility] the event this information is protected by the Federal Confidentiality of Alcohol and Drug Abuse Patient Records regulations: The Federal rules restrict any use of the information to criminally investigate or prosecute any alcohol or drug abuse patient.[facility] the event this information is protected by the Federal Confidentiality of Alcohol and Drug Abuse Patient Records regulations: The Federal rules restrict any use of the information to criminally investigate or prosecute any alcohol or drug abuse patient.[facility] Care Teams (unrecognized sec tion and content) Ups Driver Relationship Specialty Start Date End Date Brook Gaviria MD [address] [place] [address] PCP - General Internal Medicine 03/16/21 Ups Driver Relationship Specialty Start Date End Date Brook Gaviria MD [address] [place] [address] PCP - General Internal Medicine 03/16/21 Ups Driver Relationship Specialty Start Date End Date Brook Gaviria MD [address] [facility] [place] [address] PCP - General Internal Medicine 03/16/21 Ups Driver Relationship Specialty Start Date End Date Brook Gaviria MD [address] [facility] [place] [address] PCP - General Internal Medicine 03/16/21 Ups Driver Relationship Specialty Start Date End Date Brook Gaviria MD [address] [facility] [place] [address] PCP - General Internal Medicine 03/16/21 Ups Driver Relationship Specialty Start Date End Date Brook Gaviria MD [address] [facility] [place] [address] PCP - General Internal Medicine 03/16/21 Ups Driver Relationship Specialty Start Date End Date Brook Gaviria MD [address] [facility] [place] [address] PCP - General Internal Medicine 03/16/21 Ups Driver Relationship Specialty Start Date End Date Brook Gaviria MD [address] [facility] [place] [address] PCP - General Internal Medicine 03/16/21 Ups Driver Relationship Specialty Start Date End Date Brook Gaviria MD [address] [facility] [place] [address] PCP - General Internal Medicine 03/16/21 Ups Driver Relationship Specialty Start Date End Date Brook Gaviria MD [address] [facility] [place], [place] [address] PCP - General Internal Medicine 03/16/21 Ups Driver Relationship Specialty Start Date End Date Brook Gaviria MD [address], [place] [address] PCP - General Internal Medicine 03/16/21 Ups Driver Relationship Specialty Start Date End Date Brook Gaviria MD [address], [place] [address] PCP - General Internal Medicine 03/16/21 Ups Driver Relationship Specialty Start Date End Date Brook Gaviria MD [address], [place] [address] PCP - General Internal Medicine 03/16/21 Ups Driver Relationship Specialty Start Date End Date Brook Gaviria MD [address], [place] [address] PCP - General Internal Medicine 03/16/21 Ups Driver Relationship Specialty Start Date End Date Brook Gaviria MD [address], [place] [address] PCP - General Internal Medicine 03/16/21 Reason for Visit (unrecogniz ed section and content) Reason Comments Back Pain x 2 years 04/01 Reason Comments Patient Update Internal referral Reason Comments New Patient Specialty Diagnoses / Procedures Referred By Contac t Referred To Contact Pain Management Diagnoses Chronic bilateral low back pain with bilateral sciatica Procedures CONSULT TO PAIN MGT OFFICE/OUTPATIENT NEW HIGH MDM 60-74 MINUTES Brook Gaviria MD [address] [place] [address] Referral ID Status Reason Start Date Expiration Date V isits Requested Visits Authorized [id number] Closed PCP Requested Referral 07/12/2022 10/10/2022 1 1 Reason Comments Behavioral Health Social Work Reason Comments Follow Up lower back pain Reason Comments Appointment Reason Comments Well Woman Specialty Diagnoses / Procedures Referred By Mary t Referred To Contact Gynecology Diagnoses Encounter for gynecological examination without abnormal finding Procedures CONSULT TO GYNECOLOGY OFFICE/OUTPATIENT NEW HIGH MDM 60-74 MINUTES Brook Gaviria MD [address] [place] [address] Referral ID Status Reason Start Date Expiration Date V isits Requested Visits Authorized [id number] Closed PCP Requested Referral Auto-Generated Referral 09/14/2022 09/14/2023 1 1 Reason Comments Results Reason Comments Nausea Pt reported irregula r menses, last reported 10/08/2022 fatigue, diarrhea d/c b/c reported + hpt. Reason Comments Physical Reason Onset Date Comments Refill Request 04/13/2023 Reason Onset Date Comments Refill Request 07/03/2023 Reason Comments Dizziness Has taken INFORMATION SOURCE (unrecogn ized section and content) DATE CREATED AUTHOR AUTHOR'S ORGANIZ ATION 10/20/2022 [facility] DATE CREATED AUTHOR AUTHOR'S ORGANIZ ATION 11/08/2023 [facility] FOR RECORDS PERTAINING TO PATIENTS WHO ARE OR HAVE BEEN ENROLLED IN A CHEMICAL DEPENDENCY/SUBSTANCEABUSE PROGRAM, SOME INFORMATION MAY BE OMITTED. This clinical summary was aggregated from multiple sources. Caution should be exercised in using it in the provision of clinical care. This summary normalizes information from multiple sources, and as a consequence, information in this document may materially change the coding, format and clinical context of patient data. In addition, data may be omitted in some cases. CLINICAL DECISIONS SHOULD BE BASED ON THE PRIMARY CLINICAL RECORDS. [employer] provides no warranty or guarantee of the accuracy or completeness of information in this document.
[2023-11-12 22:33] LABS: Bacteria 0 SEEN /hpf (None Seen); Mucous, Urine 0 SEEN /hpf (<or=2+); Red Blood Cells-Urine 0 SEEN /hpf (0-5); White Blood Cells 0 SEEN /hpf (0-5)
[2023-11-12 22:37] LABS: Absolute Lymphocyte Count 1.55 X10^3/uL (0.83-4.51); Absolute Neutrophil Count 3.9 X10^3/uL (2.0-7.7); Basophil# 0.02 X10^3/uL; Basophil% 0.3 % (0-1); Eosinophil# 0.06 X10^3/uL; Hematocrit 39.2 % (37-47); Lymphocyte # 1.55 X10^3/ul (0.83-4.51); Lymphocyte % 25.9 % (19-41); Mean Corp Hgb Conc 33.2 g/dL (32-36); Mean Corpuscular Hgb 29.8 pg (27.0-32.0); Mean Corpuscular Volume 89.9 fL (81-99); Mean Platelet Vol. 10.4 fl (6.2-12.0); Monocyte# 0.48 X10^3/uL; NRBC Flagged by Analyzer 0 % (0-5); Neutrophil # 3.86 X10^3/uL (2.7-7.7); Neutrophil % 64.5 % (47-70); Platelet Count 261 K/mm3 (150-450); RBC Distribution Width CV 12.8 % (11.6-14.6); RBC Distribution Width SD 42.2 fl (35.1-43.9); Red Blood Count 4.36 M/mm3 (4.2-5.4)
[2023-11-12 22:39] LABS: Color, Urine Yellow (Yellow); Glucose, Dipstick Normal (Normal); Ketone-Dipstick Negative (Negative); Leukocyte Esterase-Dipstick Negative /ul (Negative); Nitrite-Dipstick Negative (Negative); Occult Blood-Urine 25 /ul (Negative); Protein-Dipstick 15 mg/dl (Negative); Specific Gravity, Urine 1.015 (1.002-1.030); Urine Bilirubin Dipstick Negative (Negative); Urine Clarity Sl. Cloudy (Clear); Urine Urobilinogen Normal (Normal)
[2023-11-12 22:47] LABS: Squamous Epithelial Cells - UA 0-5 SEEN /hpf (5-10)
[2023-11-12 23:16] LABS: hCG Titer Quant., Serum 403 mIU/mL (1-3)
[2023-11-13 00:56] VITALS: BP 107/73; PULSE 78; RESP 15; O2SAT 99
== END 2023-11-13 00:57 | disposition home or self-care (01) ==
PROVIDERS: Emergency Provider Emergency Medicine; PCP Internal Medicine; Visit Provider Emergency Medicine
DX: O20.9 Hemorrhage in early pregnancy, unspecified (principal); Z3A.01 Less than 8 weeks gestation of pregnancy
CPT/HCPCS: 76817; 81001; 84702; 85025; 86900; 86901; 99283; A4216

== ENCOUNTER → 2024-06-21 | Outpatient (CLI) | payer MEDICAID, SELFPAY ==
[2024-06-21 16:17] LABS: Absolute Lymphocyte Count 2.19 X10^3/uL (0.83-4.51); Absolute Neutrophil Count 4.7 X10^3/uL (2.0-7.7); Basophil# 0.04 X10^3/uL; Basophil% 0.5 % (0-1); Eosinophil# 0.04 X10^3/uL; Eosinophils% 0.5 % (0-5); Hematocrit 42.2 % (37-47); Hemoglobin 13.9 g/dL (12.0-15.0); Lymphocyte # 2.19 X10^3/ul (0.83-4.51); Lymphocyte % 29.4 % (19-41); Mean Corp Hgb Conc 32.9 g/dL (32-36); Mean Corpuscular Hgb 29.6 pg (27.0-32.0); Mean Platelet Vol. 10.6 fl (6.2-12.0); Monocyte# 0.51 X10^3/uL; Monocyte% 6.9 % (0-10); NRBC Flagged by Analyzer 0 % (0-5); Neutrophil # 4.65 X10^3/uL (2.7-7.7); Neutrophil % 62.6 % (47-70); Platelet Count 252 K/mm3 (150-450); RBC Distribution Width CV 12.3 % (11.6-14.6); RBC Distribution Width SD 40.6 fl (35.1-43.9); Red Blood Count 4.69 M/mm3 (4.2-5.4); White Blood Count 7.4 K/mm3 (4.4-11.0)
[2024-06-21 16:31] LABS: D-Dimer Quantitative (DVT/PE) 0.33 FEU/ug/m (0.27-0.49)
[2024-06-21 16:44] LABS: Prothrombin Time (Protime)PT. 13.6 SECONDS (11.7-14.9)
[2024-06-21 16:45] LABS: Fibrinogen 368 mg/dl (203-444); Partial Thromboplast Time 25.4 Seconds (24.1-36.2)
== END | disposition home or self-care (01) ==
PROVIDERS: PCP Internal Medicine; Referring Provider Internal Medicine Gastroenterology; Visit Provider Internal Medicine Gastroenterology
DX: K44.9 Diaphragmatic hernia without obstruction or gangrene (principal)
CPT/HCPCS: 36415; 85025; 85379; 85384; 85610; 85730

== ENCOUNTER → 2024-07-05 | Outpatient (CLI) | payer MEDICAID, SELFPAY ==
--- NOTE | 2024-07-05 09:10 | US_ITS ---
STUDY: ABDOMINAL ULTRASOUND - RIGHT UPPER QUADRANT; ELASTOGRAPHY REASON FOR VISIT: Female, 39 years old. Fatty infiltration of the liver. TECHNIQUE: Ultrasound evaluation of the right upper quadrant was performed with real-time and static mack-scale imaging. Point quantification shear wave elastography was performed ([facility]). TECHNICAL QUALITY: Adequate. COMPARISON: Comparison is made with prior study October 07, 2023. FINDINGS: Liver: The liver measures 15.8 cm. There is increased echogenicity consistent with fatty infiltration. The bile ducts are within normal limits. There is hepatic color flow. The direction of portal flow is hepatopetal. There is no demonstrated mass lesion. Median liver stiffness measured 5.3 kPa. Gallbladder: The patient is status post cholecystectomy. Common Bile Duct (C.B.D.): The common bile duct measures 4.3 mm. Pancreas: There is normal echogenicity of the visualized pancreas. There is no demonstrated pancreatic mass or cyst. Right Kidney: Normal size of the right kidney. The right kidney measures 10.8 cm x 4.3 cm x 4.2 cm. Normal renal cortex. The right cortex measures 1.1 cm. There is no demonstrated renal mass or cyst. There is no right hydronephrosis. Findings suggestive of 2, nonobstructive right intrarenal calculi. US/ABD Limited w/ Elastography IMPRESSION: 1. Liver stiffness measures 5.3 kPa compatible with F0-F1 (Normal to mild liver fibrosis) Metavir score. Electronically Signed: Miguel Wesley MD at 12:03 EDT ,
== END | disposition home or self-care (01) ==
PROVIDERS: PCP Internal Medicine; Referring Provider Internal Medicine Gastroenterology; Visit Provider Internal Medicine Gastroenterology
DX: K44.9 Diaphragmatic hernia without obstruction or gangrene (principal); K20.0 Eosinophilic esophagitis; R16.0 Hepatomegaly, not elsewhere classified
CPT/HCPCS: 76705; 76981

== ENCOUNTER 2024-08-14 05:11 | Day surgery (SDC) | payer MEDICAID, SELFPAY ==
[2024-08-14] VITALS (7 sets, daily range): BP systolic 113–142; BP diastolic 69–89; PULSE 82–111; RESP 16–20; TEMP 36.1–36.7; O2SAT 97–100; BMI 37.0
--- OUTSIDE RECORDS SUMMARY | 2024-08-14 05:14 | XMS RPT_ITS | CCD ---
Author Organization [facility] Care Team Providers Care Item Processor Name Role Phone ARMIN LEIGH DO Primary Care Physician Everette ROBERTS, Zheng Primary Care Provider [phone] Everette ROBERTS, Zheng Primary Care Provider Everette ROBERTS, Zheng Primary Care Provider [phone] ALMITA LOWERY Attending Unavailable GANTA, ZHENG Referring Unavailable GANTA, ZHENG Primary Care Unavailable Everette ROBERTS, Zheng Primary Care Provider MARY STEPHENS DO Attending Unavailable DR ZHENG SHARIF MD Primary Care Unavailabl e GANTA, ZHENG Primary Care Unavailable WISWELL, LINDA Referring Unavailable GANTA, ZHENG Primary Care Unavailable GANTA, ZHENG Referring Unavailable AALIYAH PEREZ Referring Unavailable GANTA, ZHENG Primary Care Unavailable AALIYAH PEREZ Attending Unavailable GANTA, ZHENG Primary Care Unavailable AALIYAH PEREZ Referring Unavailable GANTA, ZHENG Primary Care Unavailable YOVANA, RANI Attending Unavailable GANTA, ZHENG Primary Care Unavailable GANTA, ZHENG Primary Care Unavailable LISA KARMON Referring Unavailable GANTA, ZHENG Primary Care Unavailable CONSTANTINO GONZALEZ Attending Unavailable LISA KARMON Referring Unavailable GANTA, ZHENG Primary Care Unavailable GANTA, ZHENG Primary Care Unavailable WISWELL, LINDA Referring Unavailable GANTA, ZHENG Primary Care Unavailable WISWELL, LINDA Referring Unavailable GANTA, ZHENG Primary Care Unavailable YOVANA, RANI Referring Unavailable GANTA, ZHENG Primary Care Unavailable YOVANA, RANI Referring Unavailable GANTA, ZHENG Primary Care Unavailable WISWELL, LINDA Attending Unavailable YOVANA, RANI Referring Unavailable GANTA, ZHENG Primary Care Unavailable WISWELL, LINDA Referring Unavailable GANTA, ZHENG Primary Care Unavailable WISWELL, LINDA Referring Unavailable GANTA, ZHENG Primary Care Unavailable CHRISAALIYAH M Attending Unavailable AALIYAH PEREZ M Attending Unavailable GAN, [facility] Primary Care Unavailable CHRISAALIYAH M Referring Unavailable GANTA, [facility] Primary Care Unavailable CHRIS, AALIYAH M Referring Unavailable GANTA, [facility] Primary Care Unavailable CONSTANTINO GONZALEZ Attending Unavailable CHRISAALIYAH Attending Unavailable [facility], [facility] Primary Care Unavailable CHRISAALIYAH M Referring Unavailable GANTA, ZEHNG Primary Care Unavailable GANTA, [facility] Primary Care Unavailable WISWELL, LINDA Referring Unavailable GANTA, [facility] Primary Care Unavailable WISWELL, LINDA Referring Unavailable GANTA, [facility] Primary Care Unavailable WISWELL, LINDA Referring Unavailable CHRIS, AALIYAH M Referring Unavailable [facility], [facility] Primary Care Unavailable [facility], [facility] Primary Care Unavailable Medications Current Medications Medication Drug Class(es) Dates Sig (Normalized) Sig (Original) [id number] 200 actuat albuterol 0.09 mg/actuat metered dose inhaler (6 sources) beta2-Adrenergic Agonist Start: 10-31-2022 End: 09-08-2023 take 2 puff(s) by inhalation every four hours as needed albuterol HFA (PROAIR HFA) 90 mcg/actuation inhaler Inhale 2 Puffs as instructed every 4 hours as needed. 18 g 0 10/31/2022 09/08/2023 Discontinued (Course of therapy completed) Comment on above: Inhale 2 Puffs as in structed every 4 hours as needed. cholecalciferol 0.125 mg oral tablet (6 sources) Vitamin D Start: 11-04-2022 End: 09-08-2023 take 1 tablet by mouth once daily cholecalciferol (VITAMIN D-3) 5,000 unit tab Take 1 tablet by mouth once daily. 30 tablet 2 11/04/2022 09/08/2023 Discontinued (Discontinued by another Health Care Provider) Comment on above: Take 1 tablet by katie th once daily. nabumetone 500 mg oral tablet (10 sources) Nonsteroidal Anti-inflammatory Drug Start: 09-08-2022 End: 03-07-2023 take 1 tablet by mouth twice daily as needed for pain nabumetone (RELAFEN) 500 mg tablet Indications: osteoarthritis Take 1 tablet by mouth twice daily as needed for pain (WITH FOOD). 60 tablet 3 09/08/2022 03/07/2023 Active Comment on above: Take 1 tablet by katie th twice daily as needed for pain (WITH FOOD). PNV no.95/ferrous fum/folic ac ( ORAL) (6 sources) PNV no.95/ferrou s fum/folic ac ( ORAL) Take by mouth. Active PNV no.95/ferrou s fum/folic ac ( ORAL) Take by mouth. 0 Active Completed/Discontinued Medications Medication Drug Class(es) Dates Sig (Normalized) Sig (Original) ARIPiprazole 2 mg oral tablet (8 sources) Atypical Antipsychotic Start: 01-05-2022 End: 09-14-2022 take 0.5 tablet by mouth once daily, then take 1 tablet by mouth once daily ARIPiprazole (ABILIFY) 2 mg tablet Indications: Anxiety and depression take 1/2 tablet by mouth once daily for 14 days then 1 tablet once daily for 14 days 30 tablet 2 04/04/2022 09/14/2022 Discontinued Comment on above: take 1/2 tablet by m outh once daily for 14 days then 1 tablet once daily for 14 days Take 0.5 tablets by mouth once daily for 14 days, THEN 1 tablet once daily for 14 days. benzonatate 100 mg oral capsule (2 sources) Non-narcotic Antitussive Start: 10-31-2022 End: 12-09-2022 take 2 capsules by mouth every eight hours as needed benzonatate (TESSALON PERLE) 100 mg capsule Take 2 capsules by mouth three times daily as needed. 30 capsule 0 10/31/2022 12/09/2022 Discontinued Comment on above: Take 2 capsules by m outh three times daily as needed. Desogestrel / Ethinyl Estradiol (9 sources) Progestin, Estrogen Start: 09-16-2022 take 1 tablet by mouth once daily, then take 0.15 tablet by mouth once Desogestrel-Ethiny l Estradiol (APRI) 0.15-0.03 mg per tablet Indications: General counseling and advice for contraceptive management Take 1 tablet by mouth once daily. 84 tablet 3 09/16/2022 Active Comment on above: Take 1 tablet by katie th once daily. gabapentin 100 mg oral capsule ( sources) Anti-epileptic Agent Start: 01-05-2022 End: 09-16-2022 take 1 capsule by mouth once daily gabapentin (NEURONTIN) 100 mg capsule Indications: Sciatica, unspecified laterality , Sleep disturbance take 1 capsule by mouth once daily 30 capsule 2 04/04/2022 09/16/2022 Discontinued Comment on above: Take 1 capsule by [facility] once daily for 90 days. take 1 capsule by [facility] once daily hydrOXYzine hydrochloride 25 mg oral tablet (8 sources) Antihistamine Start: 02-15-2022 End: 09-14-2022 take 25-50 mg by mouth every eight hours as needed hydrOXYzine HCl (ATARAX) 25 mg tablet Take 1-2 tablets by mouth three times daily as needed. 90 tablet 2 02/15/2022 09/14/2022 Discontinued Comment on above: Take 1-2 tablets by mouth three times daily as needed. lamoTRIgine 100 mg oral tablet (5 sources) Mood Stabilizer, Anti-epileptic Agent Start: 02-01-2023 take 1 tablet by mouth once daily, then take 1.5 tablets by mouth once daily lamoTRIgine (LAMICTAL) 100 mg tablet Take 1 tablet by mouth once daily for 14 days, THEN 1.5 tablets once daily. 59 tablet 0 02/01/2023 Active Start: 11-03-2022 End: 12-31-2022 take 1 tablet by mouth once daily, then take 2 tablets by mouth once daily, then take 3 tablets by mouth once daily lamoTRIgine (LAMICTAL) 25 mg tablet Take 1 tablet by mouth once daily for 14 days, THEN 2 tablets once daily for 14 days, THEN 3 tablets once daily. 132 tablet 0 11/03/2022 12/31/2022 Active Comment on above: Take 1 tablet by katie once daily for 14 days, THEN 2 tablets once daily for 14 days, THEN 3 tablets once daily. Take 1 tablet by katie once daily for 14 days, THEN 1.5 tablets once daily. 25/iron fum/folic/dha (-1 ORAL) (3 sources) End: 11-27-2023 25/iron fum/folic/dha (-1 ORAL) Take by mouth. 0 11/27/2023 Discontinued (Course of therapy completed) 25/iron fum/folic/dha (-1 ORAL) Take by mouth. 0 Active Comment on above: Take by mouth. Problems Active Problems Problem Classification Problem Date Documented Date Episodic/Chronic Abdominal pain (3 sources) Pain in pelvis; Translations: [Pelvic and perineal pain] Onset: 04-09-2024 04-02-2024 Episodic Acute and chronic tonsillitis (1 source) Tonsillitis; Translations: [Acute tonsillitis, unspecified] 02-14-2024 Episodic Anxiety disorders (20 sources) Mixed anxiety and depressive disorder; Translations: [Anxiety disorder, unspecified] Onset: 11-03-2022 Chronic Contraceptive and procreative management (4 sources) Patient encounter status; Translations: [Encounter for other general counseling and advice on contraception] Episodic Female infertility (1 source) Female infertility; Translations: [Female infertility, unspecified] 04-02-2024 Chronic Immunizations and screening for infectious disease (3 sources) Viral screening status; Translations: [Encounter for screening for other viral diseases] Episodic Malaise and fatigue (3 sources) Fatigue; Translations: [Other fatigue] Onset: 04-02-2024 Episodic Menstrual disorders (3 sources) Missed period; Translations: [Irregular menstruation, unspecified] Onset: 09-08-2023 Chronic Mood disorders (20 sources) Bipolar I disorder; Translations: [Mood disorder] Onset: 11-03-2022 01-25-2016 Chronic Nausea and vomiting (1 source) Nausea; Translations: [Nausea] Episodic Other nervous system disorders (1 source) [...] gain; Translations: [Abnormal weight gain] Episodic Other screening for suspected conditions (not mental disorders or infectious disease) (2 sources) Cancer cervix screening status; Translations: [Encounter for screening for malignant neoplasm of cervix] Onset: 06-14-2024 Episodic Residual codes; unclassified (2 sources) Disturbance in sleep behavior; Translations: [Sleep disorder, unspecified] Episodic Residual codes; unclassified (2 sources) H/O: ectopic ; Translations: [Personal history of other complications of , childbirth and the puerperium] 12-21-2023 Episodic Spondylosis; intervertebral disc disorders; other back problems (9 sources) Sciatica; Translations: [Sciatica, unspecified side] Onset: 09-08-2022 Episodic Past or Other Problems Problem Classification Problem Date Documented Date Episodic/Chronic Conditions associated with dizziness or vertigo (2 sources) Dizziness; Translations: [Dizziness and giddiness] Onset: 09-08-2023 09-08-2023 Episodic Ectopic (6 sources) Tubal ; Translations: [Right tubal without intrauterine ] Onset: 11-27-2023 11-23-2023 Episodic Hemorrhage during ; abruptio placenta; placenta previa (1 source) Antepartum hemorrhage, unspecified, unspecified trimester; Translations: [Unspecified antepartum hemorrhage, antepartum] Onset: 11-15-2023 Episodic Nonmalignant breast conditions (3 sources) Lump in right breast; Translations: [Unspecified lump in the right breast, unspecified quadrant] Onset: 10-31-2023 Episodic Other complications of (1 source) Spotting complicating , first trimester; Translations: [Spotting complicating , first trimester] Onset: 11-20-2023 Episodic Other and delivery including normal (3 sources) with uncertain dates; Translations: [Encounter for supervision of normal , unspecified, first trimester] Onset: 11-20-2023 11-23-2023 Episodic Residual codes; unclassified (2 sources) Personal history of other complications of , childbirth and the puerperium; Translations: [Hx of ectopic ] Onset: 12-21-2023 Episodic Spontaneous (1 source) Complete or unspecified spontaneous without complication; Translations: [SAB (spontaneous )] Onset: 11-30-2023 Episodic Results Test Name Value Interpretation Reference Range [id number] Author: COORDINATOR, MAMMOGRAPHY, ? Service: ? Author Type: Physician Type: Letter Filed: 06/17/2024 23:30 Note Text: Normal [facility] PRIYANKA SCREENING W TOMOon 06-14 PRIYANKA SCREENING W BERTA * * *Final Report* * * DATE OF EXAM: Jun 14 2024 9:55AM [id number] - PRIYANKA SCREENING W BERTA / PROCEDURE REASON: Encounter for screening mammogram for breast cancer * * * * Physician Interpretation * * * * RESULT: #[id number] - PRIYANKA SCREENING W BERTA BILATERAL DIGITAL SCREENING MAMMOGRAM TOMOSYNTHESIS WITH CAD: 06/14/2024 HISTORY: /Screening Mammogram with BERTA - patient reports NO breast symptoms /priors available for comparison Encounter For Screening Mammogram For Breast Cancer. RESULT: TECHNIQUE: The study was acquired using full field digital technology and interpreted from soft copy. Digital Breast Tomosynthesis (DBT) images were obtained and used to assist in the interpretation of this examination. Current study was also evaluated with a Computer Aided Detection (CAD). Comparison is made to exams dated: 09/17/2021 mammogram - [facility] and 09/08/2021 mammogram. The breasts are extremely dense, which lowers the sensitivity of mammography. There is a benign mass in the right breast. There also are benign post operative findings and a biopsy clip in the right breast. No significant masses, calcifications, or other findings are seen in either breast. There has been no significant interval change. IMPRESSION: BENIGN There is no mammographic evidence of malignancy. A 1 year screening mammogram is recommended. Melvin bates/manfred:06/17/2024 23:30:37 Unclaimed Property Manager(s): RT Michele(R)(M), [facility] letter sent: Normal over 40 Mammogram BI-RADS: Category 2: Benign Multiple national specialty organizations have released breast cancer screening guidelines for women at average risk for developing breast cancer - guidelines that are based on both evidence and opinion, yet differ on when to start and how often to screen for breast cancer. With representation from Breast Imaging, Internal Medicine, Women's Health, Family Medicine, and Medical/Surgical Oncology, the [facility] has carefully reviewed the data and reached the following consensus: 1) All women should engage in shared decision-making with their providers to decide when to start and how often to screen; 2) All women should have the opportunity to start screening mammography at age 40; 3) For women ages 45-55, we recommend annual screening mammograms; 4) For women ages 55 and over, we support both the transition from an annual to a biennial interval if this aligns more with patient's values and preferences, or continuation with annual screening; 5) All women should discuss with their providers when to stop screening mammograms. Bridge Expert: Manfred Transcribe Date/Time: Jun 14 2024 9:23A Dictated by: MELVIN EVANS MD This examination was interpreted and the report reviewed and electronically signed by: MELVIN EVANS MD on Jun 17 2024 11:30PM EST [id number] Normal [facility] US Pelvison 04-09-2024 Indication pelvic pain Impression The uterus is anteverted and measures 94 mm x 43 mm x 55 mm. The endometrial thickness is 8.4 mm. The right ovary measures 30 mm x 24 mm x 20 mm. The left ovary measures 26 mm x 26 mm x 21 mm. There is no free fluid visualized. Recommendations Normal pelvic ultrasound. History Previous Outcomes Other: patient had recent ectopic , treated with medication Menstrual History LMP on 03/25/2024 Method Transabdominal, transvaginal, 3D ultrasound examination, Color Doppler examination. View: Adequate visualization Uterus Uterus: Visualized Uterus position: anteverted Description of uterine malformations: none Myometrium: normal Endometrium: three-layer pattern Cervix details: normal Uterus length 94 mm Uterus width 55 mm Uterus height 43 mm Uterus Vol 116.8 cm Endometrial thickness, total 8.4 mm Fibroids: No fibroids identified Polyps: No polyps identified Right Ovary Rt ovary: Visualized Rt ovary morphology: premenopausal normal follicular, normal Rt ovary D1 30 mm Rt ovary D2 24 mm Rt ovary D3 20 mm Rt ovary Vol 7.8 cm Rt ovarian cyst(s): No cysts identified Left Ovary Lt ovary: Visualized Lt ovary morphology: premenopausal normal follicular, normal Lt ovary D1 26 mm Lt ovary D2 26 mm Lt ovary D3 21 mm Lt ovary Vol 7.5 cm Lt ovarian cyst(s): No cysts identified Cul de Sac Visualized. no free fluid visualized Performed By: Sarah Anthony RDMS Read By: Rachel Roland M.D. MATERNAL MEDICINE [facility] Radiology Study observation (narrative) [facility] CNPNon 04-05-2024 CNPN Telephone (OBGYWM) MICHELLE HENDERSON ([id number]) 1985 F Date Time Provider Department 04/05/24 CONSTANTINO GONZALEZ OBGYWM During your visit today, we recorded the following information about you: Carmen Angelo RN 04/05/2024 2:27 PM Signed ----- Message from Constantino Gonzalez MD sent at 04/05/2024 1:53 PM EDT ----- Labs normal Vitamin D is low normal so supplementations with 600IU daily would be reasonable MD Sarah Lewis Lindsey, RN 04/05/2024 2:28 PM Signed Left message to call office. SHANELLE Dietz Lindsey, RN 04/05/2024 2:46 PM Signed Patient notified of results, verbalizes understanding of instructions. Carmen Angelo RN Allergies As of Date: 04/05/2024 (No Known Allergies) Date Reviewed: 04/02/2024 Reviewed by: Constantino Gonzalez MD - Fully Assessed Reason for Visit: Results [95] Prescriptions as of 04/05/2024 - PNV no.95/ferrous fum/folic ac ( ORAL) Take by mouth. Problem List As Of Date 04/05/2024 Noted Resolved Bipolar 2 disorder (HCC) [F31.81] 11/03/2022 STORMY (generalized anxiety disorder) [F41.1] 11/03/2022 Encounter Status:Closed by CARMEN ANGELO on 04/05/24 Normal [facility] 25(OH)D3 Silvia-Warren 2023 25-hydroxyvitamin D3 [Mass/Vol] 35.9 ng/mL Normal 31.0-80.0 [facility] Comment on above: Order Comment: Speci men Type: BLOOD SPECIMENOrdering Facility: [facility] Address: [address] [id number] Result Comment: Clas sification of 25 OH Vitamin D status: Deficiency/Insufficiency: < or = 30 ng/ml. Sufficiency/Optimal Levels: 31-80 ng/mL Toxicity: > 100 ng/mL. Test performed by chemiluminescent immunoassay. Performed By: #### 1 989-3 ####[facility] [id number] [facility] [id number] [address] [place] 25-hydroxyvitamin D3 [Mass/V ol]on 04-02-2024 Interpretation and review of laboratory results Normal [facility] The reference range interval was based on an analysis of samples from healthy adults and may not pertain to children from 0-18 years old. [facility] CBC panel Auto (Bld)on 04-02 Erythrocyte distribution width (RBC) [Ratio] 12.5 % 11.5 - 15.0 % [facility] Hematocrit (Bld) [Volume fraction] 43.3 % 36.0 - 46.0 % [facility] Hemoglobin (Bld) [Mass/Vol] 14.7 g/dL 11.5 - 15.5 g/dL [facility] Interpretation and review of laboratory results Normal [facility] MCH (RBC) [Entitic mass] 30.6 pg 26.0 - 34.0 pg [facility] MCHC (RBC) [Mass/Vol] 33.9 g/dL 30.5 - 36.0 g/dL [facility] MCV (RBC) [Entitic vol] 90.0 fL 80.0 - 100.0 fL [facility] Nucleated RBC (Bld) [#/Vol] NINF [facility] Platelet mean volume (Bld) [Entitic vol] 9.7 fL 9.0 - 12.7 fL [facility] Platelets (Bld) [#/Vol] 329 10*3/uL [facility] RBC (Bld) [#/Vol] 4.81 10*6/uL 3.90 - 5.2 0 m/uL [facility] WBC (Bld) [#/Vol] 8.62 10*3/uL [facility] Erythrocyte distribution width (RBC) [Ratio] 12.5 % Normal 11.5-15.0 [facility] Comment on above: Order Comment: Speci men Type: BLOOD SPECIMENOrdering Facility: [facility] Address: [address] [place] [address] Performed By: #### 5 8410-2 ####[facility] SEBASMorNCTIFFANY [id number] [place] [address] [place] Hematocrit (Bld) [Volume fraction] 43.3 % Normal 36.0-46.0 [facility] Comment on above: Order Comment: Speci men Type: BLOOD SPECIMENOrdering Facility: [facility] Address: [address] [place] [address] Performed By: #### 5 8410-2 ####[facility] HOSPITALNCLIGrayson [id number] [place] [address] [place] Hemoglobin (Bld) [Mass/Vol] 14.7 g/dL Normal 11.5-15.5 [facility] Comment on above: Order Comment: Speci men Type: BLOOD SPECIMENOrdering Facility: [facility] Address: [address] [place] [address] Performed By: #### 5 8410-2 ####[facility] HOSPITALNCLIA [id number] [place] [address] [place] MCH (RBC) [Entitic mass] 30.6 pg Normal 26.0-34.0 [facility] Comment on above: Order Comment: Speci men Type: BLOOD SPECIMENOrdering Facility: [facility] Address: [address] [place] [address] Performed By: #### 5 8410-2 ####[facility] HOSPITALNCLIA [id number] [place] [address] [place] MCHC (RBC) [Mass/Vol] 33.9 g/dL Normal 30.5-36.0 [facility] Comment on above: Order Comment: Speci men Type: BLOOD SPECIMENOrdering Facility: [facility] Address: [address] [place] [address] Performed By: #### 5 8410-2 ####[facility] JENNIFERNCLIA [id number] [place] [address] [place] MCV (RBC) [Entitic vol] 90.0 fL Normal 80.0-100.0 [facility] Comment on above: Order Comment: Speci men Type: BLOOD SPECIMENOrdering Facility: [facility] Address: [address] [place] [address] Performed By: #### 5 8410-2 ####[facility] HOSPITALNCLIA [id number] [place] [address] [place] Nucleated RBC (Bld) [#/Vol] 10*3/uL Normal <0.01 [facility] Comment on above: Order Comment: Speci men Type: BLOOD SPECIMENOrdering Facility: [facility] Address: [address] [place] [address] Performed By: #### 5 8410-2 ####[facility] HOSPITALNCLIA [id number] [place] [address] [place] Platelet mean volume (Bld) [Entitic vol] 9.7 fL Normal 9.0-12.7 [facility] Comment on above: Order Comment: Speci men Type: BLOOD SPECIMENOrdering Facility: [facility] Address: [address] [place] [address] Performed By: #### 5 8410-2 ####[facility] HOSPITALNCLIA [id number] [place] [address] [place] Platelets (Bld) [#/Vol] 329 10*3/uL Normal 150-400 [facility] Comment on above: Order Comment: Speci men Type: BLOOD SPECIMENOrdering Facility: [facility] Address: [address] [place] [address] Performed By: #### 5 8410-2 ####[facility] HOSPITALVIDHITIMPANOGOS REG[facility] [id number] [place] [address] [place] RBC (Bld) [#/Vol] 4.81 10*6/uL Normal 3.90-5.20 [facility] Comment on above: Order Comment: Speci men Type: BLOOD SPECIMENOrdering Facility: [facility] Address: [address] [place] [address] Performed By: #### 5 8410-2 ####[facility] HOSPITALNCLIA [id number] [place] [address] [place] WBC (Bld) [#/Vol] 8.62 10*3/uL Normal 3.70-11.00 [facility] Comment on above: Order Comment: Speci men Type: BLOOD SPECIMENOrdering Facility: [facility] Address: [address] [place] [address] Performed By: #### 5 8410-2 ####[facility] HOSPITALNCLIA [id number] [place] [address] [place] CNOVon 04-02-2024 CNOV Office Visit (OBGYWM ) MICHELLE HENDERSON ([id number]) 1985 F Date Time Provider Department 04/02/24 3:20 PM CONSTANTINO GONZALEZ OBORIONWLatesha During your visit today, we recorded the following information about you: Blood pressure Weight Last Period 120/80 91.7 kg 03/25/24 Constantino Gonzalez MD 04/02/2024 3:29 PM Signed Michelle Henderson is a 38 year old female who presents for problem visit. HPI: Patient presents as menses have changed. Menses is now liquid flavor compounder but still last 5 days. Also they used to be about 30 days apart and now but are still at least 24 days apart. She reports some bilateral pelvic pain over the past 1-2 months. Patient also reports fatigue. She is interested in and wonders how long it will take. 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 History LMP: 03/25/2024, Having periods Age at Menarche: Age at First : Age at Menopause: Management Scientist History Comments: Sexual Activity: Yes; Male Contraception: No contraception data on record PAST MEDICAL HISTORY Diagnosis Date Gastroparesis Liver disease NEGATIVE MEDICAL HISTORY PAST SURGICAL HISTORY Procedure Laterality Date BREAST BIOPSY NEEDLE RIGHT Right 09/17/2021 CHOLECYSTECTOMY HX 2014 FAMILY HISTORY Problem Relation Age of Onset other (MVP, IBS) Mother No Known Problems Father no relationship Cancer Sister cervical Depression Brother Social History Tobacco Use Smoking status: Former Passive exposure: Never Smokeless tobacco: Never Tobacco comments: Was vaping have already quit Vaping Use Vaping Use: Former Substances: Nicotine, Flavoring Devices: Disposable Substance Use Topics Alcohol use: No Drug use: No Current Outpatient Medications Medication Sig PNV no.95/ferrous fum/folic ac ( ORAL) Take by mouth. No current facility-administered medications for this visit. Allergies As of Date: 04/02/2024 (No Known Allergies) Fully Assessed 04/02/2024 Allergies and current medication updated:Yes EXAM: BP 120/80 Wt 202 lb 3.2 oz (91.7kg) LMP 03/25/2024 GENERAL: pleasant, female in no apparent distress ASSESSMENT AND PLAN: 38yo female with pelvic pain, fatigue AND infertility Check pelvis US Labs ordered Discussed option of referral to [facility] if desired - consult placed Medical Decision Making: Problems: Moderate: New problem with uncertain prognosis Data: Unique test(s) ordered: 3+ Risk: Low: Low risk from testing/treatment Medical Decision Making Level: 4 - Moderate Constantino Gonzalez MD Allergies As of Date: 04/02/2024 (No Known Allergies) Date Reviewed: 04/02/2024 Reviewed by: Constantino Gonzalez MD - Fully Assessed Reason for Visit: Menstrual Problem [67] Primary Visit Diagnosis:Pelvic pain [R10.2] Other Visit Diagnoses:Other fatigue [R53.83] Female infertility [N97.9] Order(s):THYROID STIMULATING HORMONE [SQTSH] Order #: [id number] FUTURE PELVIC US WHI [5477732] Order #: [id number]: 1 FUTURE VITAMIN D 25 HYDROXY [SQVITD] Order #: [id number] FUTURE COMPLETE BLOOD COUNT [SQCBC] Order #: [id number] FUTURE CONSULT TO INFERTILITY CLINIC [[id number]] Order #: [id number]: 1 FUTURE Prescriptions as of 04/02/2024 - PNV no.95/ferrous fum/folic ac ( ORAL) Take by mouth. Problem List As Of Date 04/02/2024 Noted Resolved Bipolar 2 disorder (HCC) [F31.81] 11/03/2022 STORMY (generalized anxiety disorder) [F41.1] 11/03/2022 Encounter Status:Closed by CONSTANTINO GONZALEZ on 04/02/24 Normal [facility] THYROID STIMULATING HORMONEo n 04-02-2024 TSH Qn 0.868 m[IU]/L [facility] Comment on above: If the patient is pr egnant, TSH reference range varies by gestational period: First Trimester (weeks 9-12): 0.180-2.990 mIU/L Second Trimester: 0.110-3.980 mIU/L Third Trimester: 0.480-4.710 mIU/L Ridge Koch et al. A Practical Approach for the Verifications and Determination of Site- and Trimester-Specific Reference Intervals for Thyroid Function tests in . Thyroid, 2019:29:3:412-420. Madi E, et al. 2017 Guidelines of the [place] Thyroid Association for the Diagnosis and Management of Thyroid Disease during and the . Thyroid, 2017:27:3:315-389. TSH Qnon 04-02-2024 Interpretation and review of laboratory results Normal [facility] TSH SerPl-aCncon 04-02-2024 TSH Qn 0.868 m[IU]/L Normal 0.270-4.200 [facility] Comment on above: Order Comment: Speci men Type: BLOOD SPECIMENOrdering Facility: [facility] Address: [address] [place] [address] Result Comment: If t he patient is , TSH reference range varies by gestational period: First Trimester (weeks 9-12): 0.180-2.990 mIU/L Second Trimester: 0.110-3.980 mIU/L Third Trimester: 0.480-4.710 mIU/L Ridge Koch et al. A Practical Approach for the Verifications and Determination of Site- and Trimester-Specific Reference Intervals for Thyroid Function tests in . Thyroid, 2019:29:3:412-420. Madi E, et al. 2017 Guidelines of the [place] Thyroid Association for the Diagnosis and Management of Thyroid Disease during and the . Thyroid, 2017:27:3:315-389. Performed By: #### 3 016-3 ####[facility] [id number] [place] [address] [place] VITAMIN D 25 HYDROXYon 04-02 25-hydroxyvitamin D3 [Mass/Vol] 35.9 ng/mL 31.0 - 80.0 ng/mL [facility] Comment on above: Classification of 25 [place] Vitamin D status: Deficiency/Insufficiency: < or = 30 ng/ml. Sufficiency/Optimal Levels: 31-80 ng/mL Toxicity: > 100 ng/mL. Test performed by chemiluminescent immunoassay. CNOVon 02-14-2024 CNOV Office Visit (UCWSTR ) MICHELLE HENDERSON ([id number]) 1985 F Date Time Provider Department 02/14/24 3:15 PM WILLIAM JOSEPH [facility] During your visit today, we recorded the following information about you: Temperature Pulse Respiration Blood pressure 97.7 degrees 59/minute 18/minute 120/77 Weight 92.6 kg William Joseph MD 02/14/2024 3:38 PM Signed Patient presents with: Throat Problem: Swollen lymph nodes x2 days, possible fevers and ear pain HPI: Feeling sick for a couple days Positive symptoms: swollen neck glands, ear pain, white in tonsils, throat pressure/irritation, felt feverish at night, Negative symptoms: Cough, Nasal Congestion, Rhinorrhea, 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 MEDICATIONS: No current outpatient medications on file. No current facility-administered medications for this visit. ALLERGIES: ALLERGIES No Known Allergies VITALS: BP 120/77 Pulse (!) 59 Temp 36.5 ?C (97.7 ?F) Resp 18 Wt 92.6 kg (204 lb 2.3 oz) LMP 10/09/2023 SpO2 100% BMI 35.95 kg/m? PHYSICAL EXAM: GEN: Pleasant, in no acute distress. HEENT: PERRL, EOMI, conjunctiva clear Ears: canals clear. TMs without erythema, bulge, or effusion Sinuses: non-tender frontal sinus, non-tender maxillary sinuses Throat: moist mucous membranes, tonsillar erythema, cryptic exudate Neck: supple, no thyromegaly, mild lymphadenopathy HEART: regular rate and rhythm, no murmurs LUNGS: clear to auscultation, no wheezes or crackles, no increased WOB ASSESSMENT/PLAN: 1. Exudative tonsillitis - ICD9: 463, ICD10: J03.90 - STREP A MOLECULAR (POC) - negative - suspect viral pharyngitis - Discussed supportive care treatment with gargles and analgesia. Avoid contact with others until fever free for 24 hours. Follow up with worsening symptoms. William Joseph MD Allergies As of Date: 02/14/2024 (No Known Allergies) Date Reviewed: 02/14/2024 Reviewed by: Priscilla Reyes MA - Fully Assessed Reason for Visit: Throat Problem [109] Cmt: Swollen lymph nodes x2 days, possible fevers and ear pain Primary Visit Diagnosis:Exudative tonsillitis [J03.90] Order(s):STREP A MOLECULAR (POC) [7615367] Order #: [id number]. #:[id number] Problem List As Of Date 02/14/2024 Noted Resolved Bipolar 2 disorder (HCC) [F31.81] 11/03/2022 STORMY (generalized anxiety disorder) [F41.1] 11/03/2022 Encounter Status:Closed by WILLIAM JOSEPH on 02/14/24 Normal [facility] STREP A MOLECULAR (POC)on Procedural Control Valid [facility] Strep A (POCT) Negative Negative [facility] B-HCG SerPl-aCncon HCG.beta subunit Qn 1.6 m[IU]/mL Normal <5.0 [facility] Comment on above: Order Comment: Speci men Type: BLOOD SPECIMENOrdering Facility: [facility] Address: [address] [place] [address] Result Comment: Nega tive Performed By: #### 2 1198-7 ####[facility] [id number] [facility] CLAIREDES [id number] CNPLeeann 12-22-2023 CNPN Telephone (OBGYWM) MICHELLE HENDERSON ([id number]) 1985 F Date Time Provider Department 12/22/23 LINDA SLOAN During your visit today, we recorded the following information about you: Carmen Angelo RN 12/22/2023 8:41 AM Signed ----- Message from Linda Sloan MD sent at 12/21/2023 5:03 PM EST ----- HCG quant continues to down trend. Repeat 1 week until negative Carmen Angleo RN 12/22/2023 8:43 AM Signed Patient notified and voiced understanding of results and instructions. Please file pended order for repeat next week. SHANELLE Dietz Sara, MD 12/22/2023 9:29 AM Signed filed Allergies As of Date: 12/22/2023 (No Known Allergies) Date Reviewed: 12/21/2023 Reviewed by: Izabela Álvarez Ma - Fully Assessed Reason for Visit: Results [95] Primary Visit Diagnosis:Hx of ectopic [Z87.59] Other Visit Diagnosis:Right tubal without intrauterine [O00.101] Order(s):HCG QUANTITATIVE [SQHCGQT] Order #: [id number] FUTURE Problem List As Of Date 12/22/2023 Noted Resolved Bipolar 2 disorder (HCC) [F31.81] 11/03/2022 STORMY (generalized anxiety disorder) [F41.1] 11/03/2022 Encounter Status:Closed by CARMEN ANGELO on 12/22/23 Normal [facility] B-HCG SerPl-aCncon 4 HCG.beta subunit Qn 8.7 m[IU]/mL High <5.0 [facility] Comment on above: Order Comment: Speci men Type: BLOOD SPECIMENOrdering Facility: [facility] Address: [address] [place] [address] [place] [address] Result Comment: HCG values 5 to 16 mU/mL may represent benign, pituitary derived HCG in non- women over 40 years of age. QUANTITATIVE HCG NORMAL RANGES Weeks of Gestation (Weeks Since LMP) 3 Weeks (5.8-71.2 mIU/mL) 4 Weeks (9.5-750 mIU/mL) 5 Weeks (217-7138 mIU/mL) 6 Weeks (158-14552 mIU/mL) 7 Weeks (3697-123001 mIU/mL) 8 Weeks (94727-605299 mIU/mL) 9 Weeks (68848-284364 mIU/mL) 10 Weeks (90368-349020 mIU/mL) 12 Weeks (37668-994188 mIU/mL) Referenced to [facility] Performed By: #### 2 1198-7 ####[facility] [id number] [address] OF [facility] CNOVon 12-21-2023 CNOV Office Visit (OBGYWM ) MICHELLE HENDERSON ([id number]) 1985 F Date Time Provider Department 12/21/23 10:00 AM CONSTANTINO GONZALEZ OBGYWLatesha During your visit today, we recorded the following information about you: Blood pressure Weight 104/60 87.5 kg Constantino Gonzalez MD 12/21/2023 11:26 AM Signed Michelle Henderson is a 38 year old female who presents for problem visit. HPI: Patient presents in ectopic follow up. She denies vaginal bleeding or abdominal pain. 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 History LMP: 10/09/2023, Recent Age at Menarche: Age at First : Age at Menopause: Management Scientist History Comments: Sexual Activity: Yes; Male Contraception: No contraception data on record PAST MEDICAL HISTORY Diagnosis Date Gastroparesis Liver disease NEGATIVE MEDICAL HISTORY PAST SURGICAL HISTORY Procedure Laterality Date BREAST BIOPSY NEEDLE RIGHT Right 09/17/2021 CHOLECYSTECTOMY HX 2014 FAMILY HISTORY Problem Relation Age of Onset other (MVP, IBS) Mother No Known Problems Father no relationship Cancer Sister cervical Depression Brother Social History Tobacco Use Smoking status: Former Passive exposure: Never Smokeless tobacco: Never Tobacco comments: Was vaping have already quit Vaping Use Vaping Use: Former Substances: Nicotine, Flavoring Devices: Disposable Substance Use Topics Alcohol use: No Drug use: No No current outpatient medications on file. No current facility-administered medications for this visit. Allergies As of Date: 12/21/2023 (No Known Allergies) Fully Assessed 11/27/2023 Allergies and current medication updated:Yes EXAM: LMP 10/09/2023 GENERAL: pleasant, female in no apparent distress ASSESSMENT AND PLAN: 38yo female s/p MTX for ectopic Repeat hcg quant today and follow to zero. Discussed patient should wait 3 months before attempting . Call with an positive tests as patient at risk for further ectopic pregnancies. Medical Decision Making: Problems: Low: Acute, uncomplicated illness or injury Data: Unique test result(s) reviewed: 2 Risk: Low: Low risk from testing/treatment Medical Decision Making Level: 3 - Low Constantino Gonzalez MD Referring Provider: AALIYAH PEREZ [[id number]] Allergies As of Date: 12/21/2023 (No Known Allergies) Date Reviewed: 12/21/2023 Reviewed by: Izabela Álvarez Ma - Fully Assessed Reason for Visit: Follow Up [171] Primary Visit Diagnosis:Hx of ectopic [Z87.59] Problem List As Of Date 12/21/2023 Noted Resolved Bipolar 2 disorder (HCC) [F31.81] 11/03/2022 STORMY (generalized anxiety disorder) [F41.1] 11/03/2022 Encounter Status:Closed by CONSTANTINO GONZALEZ on 12/21/23 [facility] CNPN Telephone (OBGYWM) MICHELLE HENDERSON ([id number]) 1985 F Date Time Provider Department 12/18/23 LINDA SLOAN OBGYW During your visit today, we recorded the following information about you: Linda Sloan MD 12/18/2023 8:57 AM Signed HCG quant ordered See result note Allergies As of Date: 12/18/2023 (No Known Allergies) Date Reviewed: 11/27/2023 Reviewed by: Aaliyah Perez, DEBEAKER.BONUS CLERK - Fully Assessed Reason for Visit: Orders [681] Primary Visit Diagnosis:History of ectopic [Z87.59] Order(s):HCG QUANTITATIVE [SQHCGQT] Order #: [id number] FUTURE Problem List As Of Date 12/18/2023 Noted Resolved Bipolar 2 disorder (HCC) [F31.81] 11/03/2022 STORMY (generalized anxiety disorder) [F41.1] 11/03/2022 Encounter Status:Closed by LINDA SLOAN on 12/18/23 [facility] B-HCG SerPl-aCncon HCG.beta subunit Qn 16.2 m[IU]/mL High <5.0 [facility] Comment on above: Order Comment: Speci men Type: BLOOD SPECIMENOrdering Facility: [facility] Address: [address] [place] [address] Result Comment: LYNNE TITATIVE HCG NORMAL RANGES Weeks of Gestation (Weeks Since LMP) 3 Weeks (5.8-71.2 mIU/mL) 4 Weeks (9.5-750 mIU/mL) 5 Weeks (217-7138 mIU/mL) 6 Weeks (158-99359 mIU/mL) 7 Weeks (3697-816883 mIU/mL) 8 Weeks (18247-439725 mIU/mL) 9 Weeks (57343-544056 mIU/mL) 10 Weeks (69671-482130 mIU/mL) 12 Weeks (22052-127616 mIU/mL) Referenced to 4th [facility] Performed By: #### 2 1198-7 ####[facility] [id number] [place] [address] [place] CBC panel Auto (Bld)on 12-15 Erythrocyte distribution width (RBC) [Ratio] 13.6 % Normal 11.5-15.0 [facility] Comment on above: Order Comment: Speci men Type: BLOOD SPECIMENOrdering Facility: [facility] Address: [address] [place] [address] Performed By: #### 5 8410-2 ####[facility] [id number] [place] [address] [place] Hematocrit (Bld) [Volume fraction] 41.0 % Normal 36.0-46.0 [facility] Comment on above: Order Comment: Speci men Type: BLOOD SPECIMENOrdering Facility: [facility] Address: [address] [place] [address] Performed By: #### 5 8410-2 ####[facility] [id number] [place] [address] [place] Hemoglobin (Bld) [Mass/Vol] 13.4 g/dL Normal 11.5-15.5 [facility] Comment on above: Order Comment: Speci men Type: BLOOD SPECIMENOrdering Facility: [facility] Address: [address] [place] [address] Performed By: #### 5 8410-2 ####[facility] [id number] [place] [address] [place] MCH (RBC) [Entitic mass] 30.2 pg Normal 26.0-34.0 [facility] Comment on above: Order Comment: Speci men Type: BLOOD SPECIMENOrdering Facility: [facility] Address: [address] [place] [address] Performed By: #### 5 8410-2 ####[facility] [id number] [place] [address] [place] MCHC (RBC) [Mass/Vol] 32.7 g/dL Normal 30.5-36.0 [facility] Comment on above: Order Comment: Speci men Type: BLOOD SPECIMENOrdering Facility: [facility] Address: [address] [place] [address] Performed By: #### 5 8410-2 ####[facility] [id number] [place] [address] [place] MCV (RBC) [Entitic vol] 92.3 fL Normal 80.0-100.0 [facility] Comment on above: Order Comment: Speci men Type: BLOOD SPECIMENOrdering Facility: [facility] Address: [address] [place] [address] Performed By: #### 5 8410-2 ####[facility] [id number] [place] [address] [place] Nucleated RBC (Bld) [#/Vol] 10*3/uL Normal <0.01 [facility] Comment on above: Order Comment: Speci men Type: BLOOD SPECIMENOrdering Facility: [facility] Address: [address] [place] [address] Performed By: #### 5 8410-2 ####[facility] [id number] [place] [address] [place] Platelet mean volume (Bld) [Entitic vol] 10.6 fL Normal 9.0-12.7 [facility] Comment on above: Order Comment: Speci men Type: BLOOD SPECIMENOrdering Facility: [facility] Address: [address] [place] [address] Performed By: #### 5 8410-2 ####[facility] [id number] [place] [address] [place] Platelets (Bld) [#/Vol] 342 10*3/uL Normal 150-400 [facility] Comment on above: Order Comment: Speci men Type: BLOOD SPECIMENOrdering Facility: [facility] Address: [address] [place] [address] Performed By: #### 5 8410-2 ####[facility] [id number] [place] [address] [place] RBC (Bld) [#/Vol] 4.44 10*6/uL Normal 3.90-5.20 [facility] Comment on above: Order Comment: Speci men Type: BLOOD SPECIMENOrdering Facility: [facility] Address: [address] [place] [address] Performed By: #### 5 8410-2 ####[facility] [id number] [place] [address] [place] WBC (Bld) [#/Vol] 6.38 10*3/uL Normal 3.70-11.00 [facility] Comment on above: Order Comment: Speci men Type: BLOOD SPECIMENOrdering Facility: [facility] Address: [address] [place] [address] Performed By: #### 5 8410-2 ####[facility] [id number] [place] [address] [place] Comprehensive metabolic 2000 panelon 12-15-2023 Albumin [Mass/Vol] 4.3 g/dL Normal 3.9-4.[address] [facility] Comment on above: Order Comment: Speci men Type: BLOOD SPECIMEN [facility] Address: [address] [place] [address] Performed By: #### 2 4323-8 #### [facility] [id number] [address] [place] [address] [place] ALP [Catalytic activity/Vol] 69 U/L Normal 34-123 [facility] Comment on above: Order Comment: Speci men Type: BLOOD SPECIMEN [facility] Address: [address] [place] [address] Performed By: #### 2 4323-8 #### [facility] [id number] [address] [place] [address] [place] ALT [Catalytic activity/Vol] 38 U/L Normal 7-38 [facility] Comment on above: Order Comment: Speci men Type: BLOOD SPECIMEN [facility] Address: [address] [place] [address] Performed By: #### 2 4323-8 #### [facility] [id number] [address] [place] [address] [place] Anion gap [Moles/Vol] 9 mmol/L Normal 9-18 [facility] Comment on above: Order Comment: Speci men Type: BLOOD SPECIMEN [facility] Address: [address] [place] [address] Performed By: #### 2 4323-8 #### [facility] [id number] [address] [place] [address] [place] AST [Catalytic activity/Vol] 23 U/L Normal 13-35 [facility] Comment on above: Order Comment: Speci men Type: BLOOD SPECIMEN [facility] Address: [address] [place], [place] [id number] Performed By: #### 2 4323-8 #### [facility] [id number] [address] [place] [address] [place] Bilirubin [Mass/Vol] 0.4 mg/dL Normal 0.2-1.[address] [facility] Comment on above: Order Comment: Speci men Type: BLOOD SPECIMEN [facility] Address: [address] [place] [address] Performed By: #### 2 4323-8 #### [facility] [id number] [address] [place] [address] [place] Calcium [Mass/Vol] 9.6 mg/dL Normal 8.5-10.[address] [facility] Comment on above: Order Comment: Speci men Type: BLOOD SPECIMEN [facility] Address: [address] [place] [address] Performed By: #### 2 4323-8 #### [facility] [id number] [address] [place] [address] [place] Chloride [Moles/Vol] 104 mmol/L Normal 97-[address] [facility] Comment on above: Order Comment: Speci men Type: BLOOD SPECIMEN [facility] Address: [address] [place] [address] Performed By: #### 2 4323-8 #### [facility] [id number] [address] [place], [place] [id number] [place] CO2 [Moles/Vol] 28 mmol/L Normal 22-30 [facility] Comment on above: Order Comment: Speci men Type: BLOOD SPECIMEN [facility] Address: [address] [place], [place] [address] Performed By: #### 2 4323-8 #### [facility] [id number] [address] [place] [address] [place] [facility] Creatinine [Mass/Vol] 0.81 mg/dL Normal 0.58-0.96 [facility] Comment on above: Order Comment: Tony dc Type: BLOOD SPECIMEN [facility] Address: [address] [place] [address] Performed By: #### 2 4323-8 #### [facility] [id number] [address] [place] [address] [facility] Creatinine and Glomerular filtration rate.predicted panel (S/P/Bld) 95 mL/min/1.73m??? Normal >=60 [facility] Comment on above: Order Comment: Tony dc Type: BLOOD SPECIMEN [facility] Address: [address] [place] [address] Result Comment: Bridgett mated Glomerular Filtration Rate (eGFR) is calculated using the 2020 CKD-EPI creatinine equation. This equation utilizes serum creatinine, sex, and age as parameters. The creatinine assay has traceable calibration to isotope dilution-mass spectrometry. Refer to KDIGO guidelines for clinical interpretation. In patients with unstable renal function, e.g. those with acute kidney injury, the eGFR may not accurately reflect actual GFR. Performed By: #### 2 4323-8 #### [facility] [id number] [address] [place] [address] [place] Glucose [Mass/Vol] 85 mg/dL Normal 74-[address] [facility] Comment on above: Order Comment: Tony dc Type: BLOOD SPECIMEN [facility] Address: [address] [place] [address] Result Comment: The [place] Diabetes [employer] (ADA) provides guidance for cutoff values for fasting glucose and random glucose. The ADA defines fasting as no caloric intake for at least 8 hours. Fasting plasma glucose results between 100 to 125 mg/dL indicate increased risk for diabetes (prediabetes). Fasting plasma glucose results greater than or equal to 126 mg/dL meet the criteria for diagnosis of diabetes. In the absence of unequivocal hyperglycemia, results should be confirmed by repeat testing. In a patient with classic symptoms of hyperglycemia or hyperglycemic crisis, random plasma glucose results greater than or equal to 200 mg/dL meet the criteria for diagnosis of diabetes. Reference: Standards of Medical Care in Diabetes 2016, [employer]. Diabetes Care. 2016.39(Suppl 1). Performed By: #### 2 4323-8 #### [facility] CLIA [id number] [address] [place] [address] [place] Potassium [Moles/Vol] 3.9 mmol/L Normal 3.7-5.1 [facility] Comment on above: Order Comment: Speci men Type: BLOOD SPECIMEN Ordering Facility: [facility] Address: [address] [place] [address] Performed By: #### 2 4323-8 #### [facility] CLIA [id number] [address] [place] [address] [place] Protein [Mass/Vol] 6.7 g/dL Normal 6.3-8.[address] [facility] Comment on above: Order Comment: Speci men Type: BLOOD SPECIMEN Ordering Facility: [facility] Address: [address] [place], [place] [address] Performed By: #### 2 4323-8 #### [facility] CLIA [id number] [address] [place] [address] [place] Sodium [Moles/Vol] 141 mmol/L Normal 136-[address] [facility] Comment on above: Order Comment: Speci men Type: BLOOD SPECIMEN Ordering Facility: [facility] Address: [address] [place] [address] Performed By: #### 2 4323-8 #### [facility] CLIA [id number] [address] [place] [address] [place] Urea nitrogen [Mass/Vol] 10 mg/dL Normal 7-21 [facility] Comment on above: Order Comment: Speci men Type: BLOOD SPECIMEN Ordering Facility: [facility] Address: [address] [place] [address] Performed By: #### 2 4323-8 #### [facility] CLIA [id number] [address] [place] [address] [place] B-HCG SerPl-aCncon 4 HCG.beta subunit Qn 75.4 m[IU]/mL High <5.0 [facility] Comment on above: Order Comment: Speci men Type: BLOOD SPECIMENOrdering Facility: [facility] Address: [address] [place] [address] Result Comment: LYNNE TITATIVE HCG NORMAL RANGES Weeks of Gestation (Weeks Since LMP) 3 Weeks (5.8-71.2 mIU/mL) 4 Weeks (9.5-750 mIU/mL) 5 Weeks (217-7138 mIU/mL) 6 Weeks (158-20709 mIU/mL) 7 Weeks (3697-856264 mIU/mL) 8 Weeks (76288-321504 mIU/mL) 9 Weeks (30879-957504 mIU/mL) 10 Weeks (93483-744098 mIU/mL) 12 Weeks (96344-770718 mIU/mL) Referenced to 4th [facility] Performed By: #### 2 1198-7 ####[facility] [id number] [place] [address] [place] CBC panel Auto (Bld)on 12-08 Erythrocyte distribution width (RBC) [Ratio] 13.6 % Normal 11.5-15.0 [facility] Comment on above: Order Comment: Speci men Type: BLOOD SPECIMEN Ordering Facility: [facility] Address: [address] [place] [address] Performed By: #### 2 4323-8 #### [facility] CLIA [id number] [address] [place] [address] [place] Hematocrit (Bld) [Volume fraction] 37.7 % Normal 36.0-46.0 [facility] Comment on above: Order Comment: Speci men Type: BLOOD SPECIMEN Ordering Facility: [facility] Address: [address] [place] [address] Performed By: #### 2 4323-8 #### [facility] CLIA [id number] [address] [place] [address] [place] Hemoglobin (Bld) [Mass/Vol] 12.6 g/dL Normal 11.5-15.5 [facility] Comment on above: Order Comment: Speci men Type: BLOOD SPECIMEN Ordering Facility: [facility] Address: [address] [place] [address] Performed By: #### 2 4323-8 #### [facility] CLIA [id number] [address] [place] [address] [place] MCH (RBC) [Entitic mass] 30.8 pg Normal 26.0-34.0 [facility] Comment on above: Order Comment: Speci men Type: BLOOD SPECIMEN Ordering Facility: [facility] Address: [address] [place] [address] Performed By: #### 2 4323-8 #### [facility] CLIA [id number] [address] [place] [address] [place] MCHC (RBC) [Mass/Vol] 33.4 g/dL Normal 30.5-36.0 [facility] Comment on above: Order Comment: Speci men Type: BLOOD SPECIMEN Ordering Facility: [facility] Address: [address] [place] [address] Performed By: #### 2 4323-8 #### [facility] CLIA [id number] [address] [place] [address] [place] MCV (RBC) [Entitic vol] 92.2 fL Normal 80.0-100.0 [facility] Comment on above: Order Comment: Speci men Type: BLOOD SPECIMEN Ordering Facility: [facility] Address: [address] [place] [address] Performed By: #### 2 4323-8 #### [facility] CLIA [id number] [address] [place] [address] [place] Nucleated RBC (Bld) [#/Vol] 10*3/uL Normal <0.01 [facility] Comment on above: Order Comment: Speci men Type: BLOOD SPECIMEN Ordering Facility: [facility] Address: [address] [place] [address] Performed By: #### 2 4323-8 #### [facility] CLIA [id number] [address] [place] [address] [place] Platelet mean volume (Bld) [Entitic vol] 10.7 fL Normal 9.0-12.7 [facility] Comment on above: Order Comment: Speci men Type: BLOOD SPECIMEN Ordering Facility: [facility] Address: [address] [place] [address] Performed By: #### 2 4323-8 #### [facility] CLIA [id number] [address] [place] [address] [place] Platelets (Bld) [#/Vol] 312 10*3/uL Normal 150-400 [facility] Comment on above: Order Comment: Speci men Type: BLOOD SPECIMEN Ordering Facility: [facility] Address: [address] [place] [address] Performed By: #### 2 4323-8 #### [facility] CLIA [id number] [address] [place] [address] [place] RBC (Bld) [#/Vol] 4.09 10*6/uL Normal 3.90-5.20 [facility] Comment on above: Order Comment: Speci men Type: BLOOD SPECIMEN Ordering Facility: [facility] Address: [address] [place] [address] Performed By: #### 2 4323-8 #### [facility] CLIA [id number] [address] [place] [address] [place] WBC (Bld) [#/Vol] 5.88 10*3/uL Normal 3.70-11.00 [facility] Comment on above: Order Comment: Speci men Type: BLOOD SPECIMEN Ordering Facility: [facility] Address: [address] [place] [address] Performed By: #### 2 4323-8 #### [facility] CLIA [id number] [address] [place] [address] [place] Comprehensive metabolic 2000 panelon 12-08-2023 Albumin [Mass/Vol] 3.9 g/dL Normal 3.9-4.[address] [facility] Comment on above: Order Comment: Speci men Type: BLOOD SPECIMENOrdering Facility: [facility] Address: [address] [place] [address] Performed By: #### 2 4323-8 ####[facility] [id number] [place] [address] [place] ALP [Catalytic activity/Vol] 62 U/L Normal 34-123 [facility] Comment on above: Order Comment: Speci men Type: BLOOD SPECIMENOrdering Facility: [facility] Address: [address] [place] [address] Performed By: #### 2 4323-8 ####[facility] [id number] [place] [address] [place] ALT [Catalytic activity/Vol] 50 U/L High 7-38 [facility] Comment on above: Order Comment: Speci men Type: BLOOD SPECIMENOrdering Facility: [facility] Address: [address] [place] [address] Performed By: #### 2 4323-8 ####[facility] [id number] [place] [address] [place] Anion gap [Moles/Vol] 11 mmol/L Normal 9-18 [facility] Comment on above: Order Comment: Speci men Type: BLOOD SPECIMENOrdering Facility: [facility] Address: [address] [place] [address] Performed By: #### 2 4323-8 ####[facility] [id number] [place] [id number] [place] AST [Catalytic activity/Vol] 25 U/L Normal 13-35 [facility] Comment on above: Order Comment: Speci men Type: BLOOD SPECIMENOrdering Facility: [facility] Address: [address] [place] [address] Performed By: #### 2 4323-8 ####[facility] [id number] [place] [address] [place] Bilirubin [Mass/Vol] 0.2 mg/dL Normal 0.2-1.[address] [facility] Comment on above: Order Comment: Speci men Type: BLOOD SPECIMENOrdering Facility: [facility] Address: [address] [place] [address] Performed By: #### 2 4323-8 ####[facility] [id number] [place] [address] [place] Calcium [Mass/Vol] 9.2 mg/dL Normal 8.5-10.[address] [facility] Comment on above: Order Comment: Speci men Type: BLOOD SPECIMENOrdering Facility: [facility] Address: [address] [place] [address] Performed By: #### 2 4323-8 ####[facility] [id number] [place] [address] [place] Chloride [Moles/Vol] 106 mmol/L High 97-[address] [facility] Comment on above: Order Comment: Speci men Type: BLOOD SPECIMENOrdering Facility: [facility] Address: [address] [place] [address] Performed By: #### 2 4323-8 ####[facility] [id number] [place] [id number] [place] CO2 [Moles/Vol] 25 mmol/L Normal 22-30 [facility] Comment on above: Order Comment: Speci men Type: BLOOD SPECIMENOrdering Facility: [facility] Address: [address] [place] [address] Performed By: #### 2 4323-8 ####[facility] [id number] [place] [address] [place] Creatinine [Mass/Vol] 0.80 mg/dL Normal 0.58-0.96 [facility] Comment on above: Order Comment: Speci men Type: BLOOD SPECIMENOrdering Facility: [facility] Address: [address] [place] [address] Performed By: #### 2 4323-8 ####[facility] [id number] [place] [address] [place] Creatinine and Glomerular filtration rate.predicted panel (S/P/Bld) 96 mL/min/1.73m??? Normal >=60 [facility] Comment on above: Order Comment: Speci men Type: BLOOD SPECIMENOrdering Facility: [facility] Address: [address] [place] [address] Result Comment: Bridgett mated Glomerular Filtration Rate (eGFR) is calculated using the 2020 CKD-EPI creatinine equation. This equation utilizes serum creatinine, sex, and age as parameters. The creatinine assay has traceable calibration to isotope dilution-mass spectrometry. Refer to KDIGO guidelines for clinical interpretation. In patients with unstable renal function, e.g. those with acute kidney injury, the eGFR may not accurately reflect actual GFR. Performed By: #### 2 4323-8 ####[facility] [id number] [place] [address] [place] Glucose [Mass/Vol] 106 mg/dL High 74-[address] [facility] Comment on above: Order Comment: Speci men Type: BLOOD SPECIMENOrdering Facility: [facility] Address: [address] [place] [address] Result Comment: The [place] Diabetes Association (ADA) provides guidance for cutoff values for fasting glucose and random glucose. The ADA defines fasting as no caloric intake for at least 8 hours. Fasting plasma glucose results between 100 to 125 mg/dL indicate increased risk for diabetes (prediabetes). Fasting plasma glucose results greater than or equal to 126 mg/dL meet the criteria for diagnosis of diabetes. In the absence of unequivocal hyperglycemia, results should be confirmed by repeat testing. In a patient with classic symptoms of hyperglycemia or hyperglycemic crisis, random plasma glucose results greater than or equal to 200 mg/dL meet the criteria for diagnosis of diabetes. Reference: Standards of Medical Care in Diabetes 2016, [employer] Diabetes [employer]. Diabetes Care. 2016.39(Suppl 1). Performed By: #### 2 4323-8 ####[facility] [id number] [place] [address] [place] Potassium [Moles/Vol] 4.4 mmol/L Normal 3.7-5.1 [facility] Comment on above: Order Comment: Speci men Type: BLOOD SPECIMENOrdering Facility: [facility] Address: [address] [place] [address] Performed By: #### 2 4323-8 ####[facility] [id number] [place] [address] [place] Protein [Mass/Vol] 6.5 g/dL Normal 6.3-8.[address] [facility] Comment on above: Order Comment: Jacobi men Type: BLOOD SPECIMENOrdering Facility: [facility] Address: [address] [place] [address] Performed By: #### 2 4323-8 ####[facility] [id number] [place] [id number] [place] Sodium [Moles/Vol] 142 mmol/L Normal 136-[address] [facility] Comment on above: Order Comment: Speci men Type: BLOOD SPECIMENOrdering Facility: [facility] Address: [address] [place] [address] Performed By: #### 2 4323-8 ####[facility] [id number] [place] [id number] [place] Urea nitrogen [Mass/Vol] 15 mg/dL Normal 7-21 [facility] Comment on above: Order Comment: Speci men Type: BLOOD SPECIMENOrdering Facility: [facility] Address: [address] [place] [address] Performed By: #### 2 4323-8 ####[facility] [id number] [id number] CNPNon 12-01-2023 CNPN Telephone (OBGYRavenna SolutionsM) MICHELLE HENDERSON ([id number]) 1985 F Date Time Provider Department 12/01/23 RANI YEN During your visit today, we recorded the following information about you: Allergies As of Date: 12/01/2023 (No Known Allergies) Date Reviewed: 11/27/2023 Reviewed by: Aaliyah Perez, EVANGELINA.BONUS CLERK - Fully Assessed Problem List As Of Date 12/01/2023 Noted Resolved Bipolar 2 disorder (HCC) [F31.81] 11/03/2022 STORMY (generalized anxiety disorder) [F41.1] 11/03/2022 Encounter Status:Closed by RANI YEN on 12/26/23 Normal [facility] CNPN Telephone (OBGYWM) MICHELLE HENDERSON ([id number]) 1985 F Date Time Provider Department 12/01/23 LINDA SLOAN During your visit today, we recorded the following information about you: Neena Guillory RN 12/01/2023 9:24 AM Signed ----- Message from Linda Sloan MD sent at 12/01/2023 8:14 AM EST ----- Notify pt HCG quant decreased by > 15% which is good. HCG quant to be drawn weekly. Other labs are ok as well. To repeat CBC and CMP next week with her HCG quant. Standing orders were already placed so should be ok Neena Guillory, RN 12/01/2023 9:24 AM Signed Left message for patient to call office. SHANELLE ISIDRO Trisha, RN 12/01/2023 9:31 AM Signed Patient notified. Paula Mosher RN Allergies As of Date: 12/01/2023 (No Known Allergies) Date Reviewed: 11/27/2023 Reviewed by: Aaliyah Perez, DEBEAKER.BONUS CLERK - Fully Assessed Problem List As Of Date 12/01/2023 Noted Resolved Bipolar 2 disorder (HCC) [F31.81] 11/03/2022 STORMY (generalized anxiety disorder) [F41.1] 11/03/2022 Encounter Status:Closed by PAULA MOSHER on 12/01/23 Normal [facility] B-HCG SerPl-aCncon 4 HCG.beta subunit Qn 570.4 m[IU]/mL High <5.0 [facility] Comment on above: Order Comment: Speci men Type: BLOOD SPECIMEN Ordering Facility: [facility] Address: [address] [place] [address] Result Comment: LYNNE TITATIVE HCG NORMAL RANGES Weeks of Gestation (Weeks Since LMP) 3 Weeks (5.8-71.2 mIU/mL) 4 Weeks (9.5-750 mIU/mL) 5 Weeks (217-7138 mIU/mL) 6 Weeks (158-19234 mIU/mL) 7 Weeks (3697-126283 mIU/mL) 8 Weeks (00810-954827 mIU/mL) 9 Weeks (59938-402482 mIU/mL) 10 Weeks (72378-086430 mIU/mL) 12 Weeks (46501-047925 mIU/mL) Referenced to 4th IS of [facility] Performed By: #### 2 1198-7 #### [facility] CLIA [id number] [address] [place] [address] [place] CBC panel Auto (Bld)on 11-30 Erythrocyte distribution width (RBC) [Ratio] 13.2 % Normal 11.5-15.0 [facility] Comment on above: Order Comment: Speci men Type: BLOOD SPECIMENOrdering Facility: [facility] Address: [address] [place] [address] Performed By: #### 5 8410-2 ####[facility] [id number] [place] [address] [place] Hematocrit (Bld) [Volume fraction] 38.9 % Normal 36.0-46.0 [facility] Comment on above: Order Comment: Speci men Type: BLOOD SPECIMENOrdering Facility: [facility] Address: [address] [place] [address] Performed By: #### 5 8410-2 ####[facility] [id number] [place] [address] [place] Hemoglobin (Bld) [Mass/Vol] 12.7 g/dL Normal 11.5-15.5 [facility] Comment on above: Order Comment: Speci men Type: BLOOD SPECIMENOrdering Facility: [facility] Address: [address] [place] [address] Performed By: #### 5 8410-2 ####[facility] [id number] [place] [address] [place] MCH (RBC) [Entitic mass] 29.9 pg Normal 26.0-34.0 [facility] Comment on above: Order Comment: Speci men Type: BLOOD SPECIMENOrdering Facility: [facility] Address: [address] [place] [address] Performed By: #### 5 8410-2 ####[facility] [id number] [place] [address] [place] MCHC (RBC) [Mass/Vol] 32.6 g/dL Normal 30.5-36.0 [facility] Comment on above: Order Comment: Speci men Type: BLOOD SPECIMENOrdering Facility: [facility] Address: [address] [place] [address] Performed By: #### 5 8410-2 ####[facility] [id number] [place] [address] [place] MCV (RBC) [Entitic vol] 91.5 fL Normal 80.0-100.0 [facility] Comment on above: Order Comment: Speci men Type: BLOOD SPECIMENOrdering Facility: [facility] Address: [address] [place] [address] Performed By: #### 5 8410-2 ####[facility] [id number] [place] [address] [place] Nucleated RBC (Bld) [#/Vol] 10*3/uL Normal <0.01 [facility] Comment on above: Order Comment: Speci men Type: BLOOD SPECIMENOrdering Facility: [facility] Address: [address] [place] [address] Performed By: #### 5 8410-2 ####[facility] [id number] [place] [address] [place] Platelet mean volume (Bld) [Entitic vol] 10.7 fL Normal 9.0-12.7 [facility] Comment on above: Order Comment: Speci men Type: BLOOD SPECIMENOrdering Facility: [facility] Address: [address] [place] [address] Performed By: #### 5 8410-2 ####[facility] [id number] [place] [address] [place] Platelets (Bld) [#/Vol] 266 10*3/uL Normal 150-400 [facility] Comment on above: Order Comment: Speci men Type: BLOOD SPECIMENOrdering Facility: [facility] Address: [address] [place] [address] Performed By: #### 5 8410-2 ####[facility] [id number] [place] [address] [place] RBC (Bld) [#/Vol] 4.25 10*6/uL Normal 3.90-5.20 [facility] Comment on above: Order Comment: Speci men Type: BLOOD SPECIMENOrdering Facility: [facility] Address: [address] [place] [address] Performed By: #### 5 8410-2 ####[facility] [id number] [place] [address] [place] WBC (Bld) [#/Vol] 6.06 10*3/uL Normal 3.70-11.00 [facility] Comment on above: Order Comment: Speci men Type: BLOOD SPECIMENOrdering Facility: [facility] Address: [address] [place] [address] Performed By: #### 5 8410-2 ####[facility] [id number] [place] [address] [place] Comprehensive metabolic 2000 panelon 11-30-2023 Albumin [Mass/Vol] 4.1 g/dL Normal 3.9-4.[address] [facility] Comment on above: Order Comment: Speci men Type: BLOOD SPECIMENOrdering Facility: [facility] Address: [address] [place] [address] Performed By: #### 2 4323-8 ####[facility] [id number] [place] [address] [place] ALP [Catalytic activity/Vol] 66 U/L Normal 34-123 [facility] Comment on above: Order Comment: Speci men Type: BLOOD SPECIMENOrdering Facility: [facility] Address: [address] [place] [id number] Performed By: #### 2 4323-8 ####[facility] [id number] [place] [id number] [place] ALT [Catalytic activity/Vol] 39 U/L High 7-38 [facility] Comment on above: Order Comment: Speci men Type: BLOOD SPECIMENOrdering Facility: [facility] Address: [address] [place] [address] Performed By: #### 2 4323-8 ####[facility] [id number] [place] [address] [place] Anion gap [Moles/Vol] 11 mmol/L Normal 9-18 [facility] Comment on above: Order Comment: Speci men Type: BLOOD SPECIMENOrdering Facility: [facility] Address: [address] [place] [address] Performed By: #### 2 4323-8 ####[facility] [id number] [place] [address] [place] AST [Catalytic activity/Vol] 21 U/L Normal 13-35 [facility] Comment on above: Order Comment: Speci men Type: BLOOD SPECIMENOrdering Facility: [facility] Address: [address] [place], [place] [address] Performed By: #### 2 4323-8 ####[facility] [id number] [place] [id number] [place] Bilirubin [Mass/Vol] 0.2 mg/dL Normal 0.2-1.[address] [facility] Comment on above: Order Comment: Speci men Type: BLOOD SPECIMENOrdering Facility: [facility] Address: [address] [place], [place] [address] Performed By: #### 2 4323-8 ####[facility] [id number] [place] [address] [place] Calcium [Mass/Vol] 9.4 mg/dL Normal 8.5-10.[address] [facility] Comment on above: Order Comment: Speci men Type: BLOOD SPECIMENOrdering Facility: [facility] Address: [address] [place] [address] Performed By: #### 2 4323-8 ####[facility] [id number] [place] [address] [place] Chloride [Moles/Vol] 107 mmol/L High 97-[address] [facility] Comment on above: Order Comment: Speci men Type: BLOOD SPECIMENOrdering Facility: [facility] Address: [address] [place] [address] Performed By: #### 2 4323-8 ####[facility] [id number] [place] [address] [place] CO2 [Moles/Vol] 25 mmol/L Normal 22-30 [facility] Comment on above: Order Comment: Speci men Type: BLOOD SPECIMENOrdering Facility: [facility] Address: [address] [place] [address] Performed By: #### 2 4323-8 ####[facility] [id number] [place] [address] [place] Creatinine [Mass/Vol] 0.79 mg/dL Normal 0.58-0.96 [facility] Comment on above: Order Comment: Speci men Type: BLOOD SPECIMENOrdering Facility: [facility] Address: [address] [place], [place] [address] Performed By: #### 2 4323-8 ####[facility] [id number] [place] [address] [place] Creatinine and Glomerular filtration rate.predicted panel (S/P/Bld) 98 mL/min/1.73m??? Normal >=60 [facility] Comment on above: Order Comment: Tony dc Type: BLOOD SPECIMENOrdering Facility: [facility] Address: [address] [place] [address] Result Comment: Bridgett mated Glomerular Filtration Rate (eGFR) is calculated using the 2020 CKD-EPI creatinine equation. This equation utilizes serum creatinine, sex, and age as parameters. The creatinine assay has traceable calibration to isotope dilution-mass spectrometry. Refer to KDIGO guidelines for clinical interpretation. In patients with unstable renal function, e.g. those with acute kidney injury, the eGFR may not accurately reflect actual GFR. Performed By: #### 2 4323-8 ####[facility] [id number] [place] [address] [place] Glucose [Mass/Vol] 93 mg/dL Normal 74-[address] [facility] Comment on above: Order Comment: Tony dc Type: BLOOD SPECIMENOrdering Facility: [facility] Address: [address] [place] [address] Result Comment: The [place] Diabetes Association (ADA) provides guidance for cutoff values for fasting glucose and random glucose. The ADA defines fasting as no caloric intake for at least 8 hours. Fasting plasma glucose results between 100 to 125 mg/dL indicate increased risk for diabetes (prediabetes). Fasting plasma glucose results greater than or equal to 126 mg/dL meet the criteria for diagnosis of diabetes. In the absence of unequivocal hyperglycemia, results should be confirmed by repeat testing. In a patient with classic symptoms of hyperglycemia or hyperglycemic crisis, random plasma glucose results greater than or equal to 200 mg/dL meet the criteria for diagnosis of diabetes. Reference: Standards of Medical Care in Diabetes 2016, [place] Diabetes Association. Diabetes Care. 2016.39(Suppl 1). Performed By: #### 2 4323-8 ####[facility] [id number] [place] [address] [place] Potassium [Moles/Vol] 4.0 mmol/L Normal 3.7-5.1 [facility] Comment on above: Order Comment: Tony dc Type: BLOOD SPECIMENOrdering Facility: [facility] Address: [address] [place] [address] Performed By: #### 2 4323-8 ####[facility] [id number] [place] [address] [place] Protein [Mass/Vol] 6.6 g/dL Normal 6.3-8.[address] [facility] Comment on above: Order Comment: Speci men Type: BLOOD SPECIMENOrdering Facility: [facility] Address: [address] [place] [address] Performed By: #### 2 4323-8 ####[facility] [id number] [place] [address] [place] Sodium [Moles/Vol] 143 mmol/L Normal 136-[address] [facility] Comment on above: Order Comment: Speci men Type: BLOOD SPECIMENOrdering Facility: [facility] Address: [address] [place] [address] Performed By: #### 2 4323-8 ####[facility] [id number] [place] [address] [place] Urea nitrogen [Mass/Vol] 10 mg/dL Normal 7-21 [facility] Comment on above: Order Comment: Speci men Type: BLOOD SPECIMENOrdering Facility: [facility] Address: [address] [place] [address] Performed By: #### 2 4323-8 ####[facility] [id number] [place] [address] [place] B-HCG SerPl-aCncon 4 HCG.beta subunit Qn 856.3 m[IU]/mL High <5.0 [facility] Comment on above: Order Comment: Speci men Type: BLOOD SPECIMENOrdering Facility: [facility] Address: [address] [place] [address] Result Comment: LYNNE TITATIVE HCG NORMAL RANGES Weeks of Gestation (Weeks Since LMP) 3 Weeks (5.8-71.2 mIU/mL) 4 Weeks (9.5-750 mIU/mL) 5 Weeks (217-1938 mIU/mL) 6 Weeks (158-26962 mIU/mL) 7 Weeks (3697-484853 mIU/mL) 8 Weeks (21209-122344 mIU/mL) 9 Weeks (87747-525195 mIU/mL) 10 Weeks (10750-616636 mIU/mL) 12 Weeks (45255-516874 mIU/mL) Referenced to 4th IS of [facility] Performed By: #### 2 1198-7 ####[facility] [id number] [facility] [id number] [place] [address] OF [facility] CNOVon 11-27-2023 CNOV Office Visit (INTMWS ) BEATRIZMICHELLE CRANE ([id number]) 1985 F Date Time Provider Department 11/27/23 2:00 PM AALIYAH PEREZ INTMWS During your visit today, we recorded the following information about you: Pulse Respiration Blood pressure Weight 86/minute 16/minute 128/68 83.9 kg Height 1.605 m Aaliyah Perez, DEBEAKER.BONUS CLERK 11/27/2023 2:35 PM Signed CC: Patient presents with: Physical HPI Michelle Steeleown is a 38 year old female who presents today for above. 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 Denies any other concerns today. Review of Systems Constitutional: Negative for chills, diaphoresis, fever and unexpected weight change. Eyes: Negative for visual disturbance. Respiratory: Negative for cough, shortness of breath and wheezing. Cardiovascular: Negative for chest pain, palpitations and leg swelling. Musculoskeletal: Negative for arthralgias, back pain, gait problem, joint swelling, myalgias, neck pain and neck stiffness. Neurological: Negative for dizziness, tremors, seizures, syncope, weakness, light-headedness and numbness. Psychiatric/Behavioral : Negative for confusion, dysphoric mood, hallucinations, self-injury, sleep disturbance and suicidal ideas. The patient is not nervous/anxious and is not hyperactive. PAST MEDICAL HISTORY Diagnosis Date Gastroparesis Liver disease NEGATIVE MEDICAL HISTORY PAST SURGICAL HISTORY Procedure Laterality Date BREAST BIOPSY NEEDLE RIGHT Right 09/17/2021 CHOLECYSTECTOMY HX 2015 ALLERGIES Patient has no known allergies. MEDICATIONS 25/iron fum/folic/dha (-1 ORAL) Take by mouth. (Patient not taking: Reported on 11/27/2023) FAMILY HISTORY Problem Relation Age of Onset other (MVP, IBS) Mother No Known Problems Father no relationship Cancer Sister cervical Depression Brother Social History Tobacco Use Smoking status: Former Passive exposure: Never Smokeless tobacco: Never Tobacco comments: Was vaping have already quit Vaping Use Vaping Use: Former Substances: Nicotine, Flavoring Devices: Disposable Substance Use Topics Alcohol use: No Drug use: No BP 128/68 Pulse 86 Resp 16 Ht 160.5 cm (5' 3.19 ) Wt 83.9 kg (185 lb) LMP 10/09/2023 SpO2 98% BMI 32.58 kg/m? Physical Exam Vitals reviewed. Constitutional: Appearance: Normal appearance. HENT: Mouth/Throat: Mouth: Mucous membranes are moist. Eyes: Extraocular Movements: Extraocular movements intact. Conjunctiva/sclera: Conjunctivae normal. Pupils: Pupils are equal, round, and reactive to light. Cardiovascular: Rate and Rhythm: Normal rate and regular rhythm. Pulses: Normal pulses. Heart sounds: Normal heart sounds. No murmur heard. Pulmonary: Effort: Pulmonary effort is normal. Breath sounds: Normal breath sounds. No wheezing, rhonchi or rales. Musculoskeletal: General: No tenderness. Normal range of motion. Cervical back: Normal and neck supple. Thoracic back: Normal. Lumbar back: Normal. Lymphadenopathy: Cervical: No cervical adenopathy. Skin: General: Skin is warm and dry. Neurological: General: No focal deficit present. Mental Status: She is alert and oriented to person, place, and time. Motor: Motor function is intact. Coordination: Coordination is intact. Gait: Gait is intact. Psychiatric: Attention and Perception: Attention normal. Mood and Affect: Mood and affect normal. Speech: Speech normal. Behavior: Behavior normal. Thought Content: Thought content normal. Judgment: Judgment normal. Health maintenance reviewed with patient: Hepatitis B Vaccine(1 of 3 - 3-dose series) Never done Pneumococcal Vaccine(1 of 2 - PCV) Never done DTaP,Tdap,Td Vaccine(1 - Tdap) Never done Shingrix Vaccine(1 of 2) Never done Depression Assessment due on 10/23/2023 Influenza Vaccine(1) due on 04/21/2024 Covid-19 Vaccine(2 - Amy risk series) due on 11/27/2024 RSV Vaccine(1 - Risk 1-dose series) due on 06/23/2024 Pap Testing due on 09/16/2025 HPV Testing due on 09/16/2025 Hepatitis C Screening Completed HIV Screening Completed HPV Vaccine Aged Out ASSESSMENT/PLAN: 1. Wellness examination - ICD9: V70.0, ICD10: Z00.00 (primary diagnosis) - Counseled on healthy diet and regular exercise - Calcium intake with supplements or by diet of 1000 mg/day for under 50, 0204-8678 mg/day for 50+ - Discussed need and benefit for weight loss. BMI 32.58 kg/(m2) - Depression screening tool completed and reviewed with patient. Based on score and interview, patient is not at risk for depression and recommended no further intervention at this time. - Patient was counseled [id number] by myself (the billing provider) for the following immunizations and vaccine compone (more content not included)... Normal [facility] MUMPS IGG ABon 11-27-2023 MuV IgG Ql (S) Positive Normal Positive [facility] Comment on above: Order Comment: Speci men Type: BLOOD SPECIMENOrdering Facility: [facility] Address: [address] [place] [address] Result Comment: The result suggests recent or past exposure to Mumps virus or Mumps vaccination. The current test does not detect neutralizing antibodies. Positive result may also be seen due to presence of passively-transferred antibodies. Please correlate with patient's history. Performed By: #### M UMPSG, MEASLG, RUBIGG ####[facility] [id number] [facility] CLAIREDESK [id number] [id number] [place] RUBELLA IGG ABon 11-27-2023 RUBELLA IGG AB, QUAL Positive Normal Positive [facility] Comment on above: Order Comment: Speci men Type: BLOOD SPECIMENOrdering Facility: [facility] Address: [address] [place] [address] Result Comment: The result suggests recent or past exposure to Rubella virus or history of Rubella vaccination. Positive result may also be seen due to presence of passively-transferred antibodies. Please correlate with patient's history. Performed By: #### M UMPSG, MEASLG, RUBIGG ####[facility] [id number] [address] [place] RUBEOLA (MEASLES)IGGon 11-27 MEASLES IGG AB, QUAL Positive Normal Positive [facility] Comment on above: Order Comment: Speci men Type: BLOOD SPECIMENOrdering Facility: [facility] Address: [address] [place] [address] Result Comment: The result suggests recent or past exposure to Measles virus or Measles vaccination. The current test does not detect neutralizing antibodies. Positive result may also be seen due to presence of passively-transferred antibodies. Please correlate with patient's history. Performed By: #### M UMPSG, MEASLG, RUBIGG ####[facility] [id number] [address] [place] CBC W Auto Differential pane l (Bld)on 11-23-2023 Basophils (Bld) [#/Vol] 0.03 10*3/uL <0.11 k/uL [facility] Basophils/100 WBC (Bld) 0.5 % [facility] Differential cell count method Nom (Bld) Auto [facility] Eosinophils (Bld) [#/Vol] <0.46 k/uL [facility] Eosinophils/100 WBC (Bld) 0.4 % [facility] Erythrocyte distribution width (RBC) [Ratio] 13.1 % 11.5 - 15.0 % [facility] Hematocrit (Bld) [Volume fraction] 37.2 % 36.0 - 46.0 % [facility] Hemoglobin (Bld) [Mass/Vol] 12.5 g/dL 11.5 - 15.5 g/dL [facility] Immature granulocytes (Bld) [#/Vol] <0.10 k/uL [facility] Immature granulocytes/100 WBC (Bld) 0.2 % [facility] Lymphocytes (Bld) [#/Vol] 1.55 10*3/uL 1.00 - 4.00 k/uL [facility] Lymphocytes/100 WBC (Bld) 28.3 % [facility] MCH (RBC) [Entitic mass] 30.0 pg 26.0 - 34.0 pg [facility] MCHC (RBC) [Mass/Vol] 33.6 g/dL 30.5 - 36.0 g/dL [facility] MCV (RBC) [Entitic vol] 89.4 fL 80.0 - 100.0 fL [facility] Monocytes (Bld) [#/Vol] 0.36 10*3/uL <0.87 k/uL [facility] Monocytes/100 WBC (Bld) 6.6 % [facility] Neutrophils (Bld) [#/Vol] 3.51 10*3/uL 1.45 - 7.50 k/uL [facility] Neutrophils/100 WBC (Bld) 64.0 % [facility] Nucleated RBC (Bld) [#/Vol] <0.01 k/uL [facility] Nucleated RBC/100 WBC (Bld) [Ratio] 0.0 /100 WBC [facility] Platelet mean volume (Bld) [Entitic vol] 9.8 fL 9.0 - 12.7 fL [facility] Platelets (Bld) [#/Vol] 280 10*3/uL 150 - 400 k/uL [facility] RBC (Bld) [#/Vol] 4.16 10*6/uL 3.90 - 5.2 0 m/uL [facility] WBC (Bld) [#/Vol] 5.48 10*3/uL 3.70 - 11. 00 k/uL [facility] Basophils (Bld) [#/Vol] 0.03 10*3/uL Normal <0.11 [facility] Comment on above: Order Comment: Speci men Type: BLOOD SPECIMENOrdering Facility: [facility] Address: [address] [place], [place] [id number] Performed By: #### 5 7021-8 ####[facility] MILLTOWNCLIA [id number] [place] [address] [place] Basophils/100 WBC (Bld) 0.5 % Normal [facility] Comment on above: Order Comment: Speci men Type: BLOOD SPECIMENOrdering Facility: [facility] Address: [address] [place] [address] Performed By: #### 5 7021-8 ####[facility] MILLWNCLIA [id number] [place] [address] [place] Differential cell count method Nom (Bld) Auto Normal [facility] Comment on above: Order Comment: Speci men Type: BLOOD SPECIMENOrdering Facility: [facility] Address: [address] [place] [address] Performed By: #### 5 7021-8 ####[facility] SEBASWNCLIA [id number] [place] [address] [place] Eosinophils (Bld) [#/Vol] 10*3/uL Normal <0.46 [facility] Comment on above: Order Comment: Speci men Type: BLOOD SPECIMENOrdering Facility: [facility] Address: [address] [place] [address] Performed By: #### 5 7021-8 ####[facility] SEBASWNCLIA [id number] [place] [address] [place] Eosinophils/100 WBC (Bld) 0.4 % Normal [facility] Comment on above: Order Comment: Speci men Type: BLOOD SPECIMENOrdering Facility: [facility] Address: [address] [place] [address] Performed By: #### 5 7021-8 ####[facility] SEBASSAN JUANNCLIA [id number] [place] [address] [place] Erythrocyte distribution width (RBC) [Ratio] 13.1 % Normal 11.5-15.0 [facility] Comment on above: Order Comment: Speci men Type: BLOOD SPECIMENOrdering Facility: [facility] Address: [address] [place] [address] Performed By: #### 5 7021-8 ####[facility] JENNIFERNCRUBIGrayosn [id number] [place] [address] [place] Hematocrit (Bld) [Volume fraction] 37.2 % Normal 36.0-46.0 [facility] Comment on above: Order Comment: Speci men Type: BLOOD SPECIMENOrdering Facility: [facility] Address: [address] [place] [address] Performed By: #### 5 7021-8 ####[facility] HOSPITALTAMELA [id number] [place] [address] [place] Hemoglobin (Bld) [Mass/Vol] 12.5 g/dL Normal 11.5-15.5 [facility] Comment on above: Order Comment: Speci men Type: BLOOD SPECIMENOrdering Facility: [facility] Address: [address] [place] [address] Performed By: #### 5 7021-8 ####[facility] HOS[facility]ITALTAMELA [id number] [place] [address] [place] Immature granulocytes (Bld) [#/Vol] 10*3/uL Normal <0.10 [facility] Comment on above: Order Comment: Speci men Type: BLOOD SPECIMENOrdering Facility: [facility] Address: [address] [place] [address] Performed By: #### 5 7021-8 ####[facility] HOSPITALNCLIA [id number] [place] [address] [place] Immature granulocytes/100 WBC (Bld) 0.2 % Normal [facility] Comment on above: Order Comment: Speci men Type: BLOOD SPECIMENOrdering Facility: [facility] Address: [address] [place] [address] Performed By: #### 5 7021-8 ####[facility]ITALWNCLIA [id number] [place] [address] [place] Lymphocytes (Bld) [#/Vol] 1.55 10*3/uL Normal 1.00-4.00 [facility] Comment on above: Order Comment: Speci men Type: BLOOD SPECIMENOrdering Facility: [facility] Address: [address] [place] [address] Performed By: #### 5 7021-8 ####[facility] [id number] [place] [address] [place] Lymphocytes/100 WBC (Bld) 28.3 % Normal [facility] Comment on above: Order Comment: Speci men Type: BLOOD SPECIMENOrdering Facility: [facility] Address: [address] [place] [address] Performed By: #### 5 7021-8 ####[facility] [id number] [place] [address] [place] MCH (RBC) [Entitic mass] 30.0 pg Normal 26.0-34.0 [facility] Comment on above: Order Comment: Speci men Type: BLOOD SPECIMENOrdering Facility: [facility] Address: [address] [place] [address] Performed By: #### 5 7021-8 ####[facility] [id number] [place] [address] [place] MCHC (RBC) [Mass/Vol] 33.6 g/dL Normal 30.5-36.0 [facility] Comment on above: Order Comment: Speci men Type: BLOOD SPECIMENOrdering Facility: [facility] Address: [address] [place] [address] Performed By: #### 5 7021-8 ####[facility] HOSPITALNCLI [id number] [place] [address] [place] MCV (RBC) [Entitic vol] 89.4 fL Normal 80.0-100.0 [facility] Comment on above: Order Comment: Speci men Type: BLOOD SPECIMENOrdering Facility: [facility] Address: [address] [place] [address] Performed By: #### 5 7021-8 ####[facility]ENTERL[facility] [id number] [place] [address] [place] Monocytes (Bld) [#/Vol] 0.36 10*3/uL Normal <0.87 [facility] Comment on above: Order Comment: Speci men Type: BLOOD SPECIMENOrdering Facility: [facility] Address: [address] [place] [address] Performed By: #### 5 7021-8 ####[facility] [id number] [place] [address] [place] Monocytes/100 WBC (Bld) 6.6 % Normal [facility] Comment on above: Order Comment: Speci men Type: BLOOD SPECIMENOrdering Facility: [facility] Address: [address] [place] [address] Performed By: #### 5 7021-8 ####[facility]ENTERLIA [id number] [place] [address] [place] Neutrophils (Bld) [#/Vol] 3.51 10*3/uL Normal 1.45-7.50 [facility] Comment on above: Order Comment: Speci men Type: BLOOD SPECIMENOrdering Facility: [facility] Address: [address] [place] [address] Performed By: #### 5 7021-8 ####[facility] HOS[facility]ITALNCLIA [id number] [place] [address] [place] Neutrophils/100 WBC (Bld) 64.0 % Normal [facility] Comment on above: Order Comment: Speci men Type: BLOOD SPECIMENOrdering Facility: [facility] Address: [address] [place] [address] Performed By: #### 5 7021-8 ####[facility] JENNIFERNCTIFFANY [id number] [place] [address] [place] Nucleated RBC (Bld) [#/Vol] 10*3/uL Normal <0.01 [facility] Comment on above: Order Comment: Speci men Type: BLOOD SPECIMENOrdering Facility: [facility] Address: [address] [place] [address] Performed By: #### 5 7021-8 ####[facility] HOSPITALVIDHILIGrayson [id number] [place] [address] [place] Nucleated RBC/100 WBC (Bld) [Ratio] 0.0 /100 WBC Normal [facility] Comment on above: Order Comment: Speci men Type: BLOOD SPECIMENOrdering Facility: [facility] Address: [address] [place] [address] Performed By: #### 5 7021-8 ####[facility] HOSPITALNCLIA [id number] [place] [address] [place] Platelet mean volume (Bld) [Entitic vol] 9.8 fL Normal 9.0-12.7 [facility] Comment on above: Order Comment: Speci men Type: BLOOD SPECIMENOrdering Facility: [facility] Address: [address] [place] [address] Performed By: #### 5 7021-8 ####[facility] HOSPITALNCLIA [id number] [place] [address] [place] Platelets (Bld) [#/Vol] 280 10*3/uL Normal 150-400 [facility] Comment on above: Order Comment: Speci men Type: BLOOD SPECIMENOrdering Facility: [facility] Address: [address] [place] [address] Performed By: #### 5 7021-8 ####[facility] HOSPITALNCLIA [id number] [place] [address] [place] RBC (Bld) [#/Vol] 4.16 10*6/uL Normal 3.90-5.20 [facility] Comment on above: Order Comment: Speci men Type: BLOOD SPECIMENOrdering Facility: [facility] Address: [address] [place] [address] Performed By: #### 5 7021-8 ####[facility] HOSPITALNCLIA [id number] [address] [place] WBC (Bld) [#/Vol] 5.48 10*3/uL Normal 3.70-11.00 [facility] Comment on above: Order Comment: Speci men Type: BLOOD SPECIMENOrdering Facility: [facility] Address: [address] [place] [address] Performed By: #### 5 7021-8 ####[facility] HOSPITALNCLIA [id number] [place] [address] [place] Comprehensive metabolic 2000 panelon 11-23-2023 Albumin [Mass/Vol] 4.1 g/dL 3.9 - 4.9 g/dL [facility] ALP [Catalytic activity/Vol] 64 U/L 34 - 123 U/L [facility] ALT [Catalytic activity/Vol] 53 U/L High 7 - 38 U/L [facility] Anion gap [Moles/Vol] 7 mmol/L Low 9 - 18 mmol/L [facility] AST [Catalytic activity/Vol] 28 U/L 13 - 35 U/L [facility] Bilirubin [Mass/Vol] 0.2 mg/dL 0.2 - 1 .3 mg/dL [facility] Calcium [Mass/Vol] 9.2 mg/dL 8.5 - 10. 2 mg/dL [facility] Chloride [Moles/Vol] 106 mmol/L High 97 - 10 5 mmol/L [facility] CO2 [Moles/Vol] 26 mmol/L 22 - 30 mmol/L [facility] Creatinine [Mass/Vol] 0.81 mg/dL 0.58 - 0.96 mg/dL [facility] Estimated Glomerular Filtration Rate 95 mL/min/1.73m >=60 mL/min/1.73m [facility] Glucose [Mass/Vol] 97 mg/dL 74 - 99 mg/dL [facility] Potassium [Moles/Vol] 3.8 mmol/L 3.7 - 5.1 mmol/L [facility] Protein [Mass/Vol] 6.3 g/dL 6.3 - 8.0 g/dL [facility] Sodium [Moles/Vol] 139 mmol/L 136 - 144 mmol/L [facility] Urea nitrogen [Mass/Vol] 10 mg/dL 7 - 21 mg/dL [facility] Albumin [Mass/Vol] 4.1 g/dL Normal 3.9-4.[address] [facility] Comment on above: Order Comment: Speci men Type: BLOOD SPECIMENOrdering Facility: [facility] Address: [address] [place] [address] Performed By: #### 2 4323-8 ####[facility] [id number] [place] [address] [place] ALP [Catalytic activity/Vol] 64 U/L Normal 34-123 [facility] Comment on above: Order Comment: Speci men Type: BLOOD SPECIMENOrdering Facility: [facility] Address: [address] [place] [address] Performed By: #### 2 4323-8 ####[facility]ENTERLIA [id number] [place] [address] [place] ALT [Catalytic activity/Vol] 53 U/L High 7-38 [facility] Comment on above: Order Comment: Speci men Type: BLOOD SPECIMENOrdering Facility: [facility] Address: [address] [place] [address] Performed By: #### 2 4323-8 ####[facility] H[facility]ITALNCLIA [id number] [place] [address] [place] Anion gap [Moles/Vol] 7 mmol/L Low 9-18 [facility] Comment on above: Order Comment: Speci men Type: BLOOD SPECIMENOrdering Facility: [facility] Address: [address] [place] [address] Performed By: #### 2 4323-8 ####[facility] HOSPITALWIALIA [id number] [place] [address] [place] AST [Catalytic activity/Vol] 28 U/L Normal 13-35 [facility] Comment on above: Order Comment: Speci men Type: BLOOD SPECIMENOrdering Facility: [facility] Address: [address] [place] [address] Performed By: #### 2 4323-8 ####[facility]ENTERL[facility] [id number] [place] [address] [place] Bilirubin [Mass/Vol] 0.2 mg/dL Normal 0.2-1.[address] [facility] Comment on above: Order Comment: Speci men Type: BLOOD SPECIMENOrdering Facility: [facility] Address: [address] [place] [address] Performed By: #### 2 4323-8 ####[facility] [id number] [place] [address] [place] Calcium [Mass/Vol] 9.2 mg/dL Normal 8.5-10.[address] [facility] Comment on above: Order Comment: Speci men Type: BLOOD SPECIMENOrdering Facility: [facility] Address: [address] [place] [address] Performed By: #### 2 4323-8 ####[facility] HOSPITALNCLIA [id number] [place] [address] [place] Chloride [Moles/Vol] 106 mmol/L High 97-[address] [facility] Comment on above: Order Comment: Speci men Type: BLOOD SPECIMENOrdering Facility: [facility] Address: [address] [place] [address] Performed By: #### 2 4323-8 ####[facility] [id number] [place] [address] [place] CO2 [Moles/Vol] 26 mmol/L Normal 22-30 [facility] Comment on above: Order Comment: Speci men Type: BLOOD SPECIMENOrdering Facility: [facility] Address: [address] [place] [address] Performed By: #### 2 4323-8 ####[facility] [id number] [place] [address] [place] Creatinine [Mass/Vol] 0.81 mg/dL Normal 0.58-0.96 [facility] Comment on above: Order Comment: Speci men Type: BLOOD SPECIMENOrdering Facility: [facility] Address: [address] [place] [address] Performed By: #### 2 4323-8 ####[facility] [id number] [address] OF [facility] Creatinine and Glomerular filtration rate.predicted panel (S/P/Bld) 95 mL/min/1.73m??? Normal >=60 [facility] Comment on above: Order Comment: Speci men Type: BLOOD SPECIMENOrdering Facility: [facility] Address: [address] [place] [address] Result Comment: Bridgett mated Glomerular Filtration Rate (eGFR) is calculated using the 2020 CKD-EPI creatinine equation. This equation utilizes serum creatinine, sex, and age as parameters. The creatinine assay has traceable calibration to isotope dilution-mass spectrometry. Refer to KDIGO guidelines for clinical interpretation. In patients with unstable renal function, e.g. those with acute kidney injury, the eGFR may not accurately reflect actual GFR. Performed By: #### 2 4323-8 ####[facility]ITALNCTIMPANOG[facility] [id number] [place] [address] [place] Glucose [Mass/Vol] 97 mg/dL Normal 74-[address] [facility] Comment on above: Order Comment: Speci men Type: BLOOD SPECIMENOrdering Facility: [facility] Address: [address] [place], [place] [id number] Result Comment: The [place] Diabetes Association (ADA) provides guidance for cutoff values for fasting glucose and random glucose. The ADA defines fasting as no caloric intake for at least 8 hours. Fasting plasma glucose results between 100 to 125 mg/dL indicate increased risk for diabetes (prediabetes). Fasting plasma glucose results greater than or equal to 126 mg/dL meet the criteria for diagnosis of diabetes. In the absence of unequivocal hyperglycemia, results should be confirmed by repeat testing. In a patient with classic symptoms of hyperglycemia or hyperglycemic crisis, random plasma glucose results greater than or equal to 200 mg/dL meet the criteria for diagnosis of diabetes. Reference: Standards of Medical Care in Diabetes 2016, [place] Diabetes Association. Diabetes Care. 2016.39(Suppl 1). Performed By: #### 2 4323-8 ####[facility] MILLTOWNCLIA [id number] [place] [address] [place] Potassium [Moles/Vol] 3.8 mmol/L Normal 3.7-5.1 [facility] Comment on above: Order Comment: Speci men Type: BLOOD SPECIMENOrdering Facility: [facility] Address: [address] [place] [address] Performed By: #### 2 4323-8 ####[facility] MILLWNCLIA [id number] [place] [address] [place] Protein [Mass/Vol] 6.3 g/dL Normal 6.3-8.[address] [facility] Comment on above: Order Comment: Speci men Type: BLOOD SPECIMENOrdering Facility: [facility] Address: [address] [place], [place] [address] Performed By: #### 2 4323-8 ####[facility] MILLWNCLIA [id number] [place] [address] [place] Sodium [Moles/Vol] 139 mmol/L Normal 136-[address] [facility] Comment on above: Order Comment: Speci men Type: BLOOD SPECIMENOrdering Facility: [facility] Address: [address] [place] [address] Performed By: #### 2 4323-8 ####[facility] HOSPITALNCTIMPANOGOS [facility] [id number] [place] [address] [place] Urea nitrogen [Mass/Vol] 10 mg/dL Normal 7-21 [facility] Comment on above: Order Comment: Speci men Type: BLOOD SPECIMENOrdering Facility: [facility] Address: [address] [place] [address] Performed By: #### 2 4323-8 ####[facility] HOSPITALNCTIMPANOGOS [facility] [id number] [place] [address] [place] OBSTETRIC ULTRASOUND WHIon 0 11-23-2023 [facility] TYPE + SCREEN PRENATALon ABO group Nom (Bld) A [facility] Blood group antibody screen Ql Negative [facility] HIstorical Ab Scr Status Negative [facility] Rh Nom (Bld) Positive [facility] Type and Screen Expiration 11/26/2023 23:59 [facility] ABO A Normal [facility] Comment on above: Order Comment: Speci men Type: BLOOD SPECIMEN [facility] Address: [address] [place] [address] Performed By: #### 2 4323-8 #### [facility] CLIA [id number] [address] [place] [address] [place] HISTORICAL AB SCR STATUS Negative Normal [facility] Comment on above: Order Comment: Speci men Type: BLOOD SPECIMEN [facility] Address: [address] [place] [address] Performed By: #### 2 4323-8 #### [facility] CLIA [id number] [address] [place] [address] [place] Rh Nom (Bld) Positive Normal [facility] Comment on above: Order Comment: Speci men Type: BLOOD SPECIMEN [facility] Address: [address] [place] [address] Performed By: #### 2 4323-8 #### [facility] CLIA [id number] [address] [place], [place] [address] [address] TYPE AND SCREEN EXPIRATION 11/26/2023 23:59 Normal [facility] Comment on above: Order Comment: Speci men Type: BLOOD SPECIMEN [facility] Address: [address] [place] [address] Performed By: #### 2 4323-8 #### [facility] CLIA [id number] [address] [place], [place] [address] [address] CNPLeeann 11-21-2023 JACQUELYNN Telephone (OBGYWM) MICHELLE HENDERSON ([id number]) 1985 F Date Time Provider Department 11/21/23 RANI YEN OBORIONWLatesha During your visit today, we recorded the following information about you: Rani Yen APRN.CNP 11/21/2023 8:02 AM Signed Please let patient know that her quant levels are dropping which is consistent with a miscarriage. I would like her to still have the ultrasound done on and repeat quant level that day. Rani Yen APRN.Kaajl Kumar RN 11/21/2023 8:47 AM Signed Left message for patient to call office. See below. Please also let her know that her US appointment time changed to 9 AM because she was put on [facility] US schedule in error. Kajal Pena, Paula Cox RN 11/21/2023 9:06 AM Signed Patient notified. Paula Mosher RN Allergies As of Date: 11/21/2023 (No Known Allergies) Date Reviewed: 11/20/2023 Reviewed by: Radha Simpson LPN - Fully Assessed Reason for Visit: Results [95] Primary Visit Diagnosis:SAB (spontaneous ) [O03.9] Order(s):HCG QUANTITATIVE [SQHCGQT] Order #: [id number] FUTURE Prescriptions as of 11/21/2023 - 25/iron fum/folic/dha (-1 ORAL) Take by mouth. Problem List As Of Date 11/21/2023 Noted Resolved Bipolar 2 disorder (HCC) [F31.81] 11/03/2022 STORMY (generalized anxiety disorder) [F41.1] 11/03/2022 Encounter Status:Closed by PAULA MOSHER on 11/21/23 Normal [facility] B-HCG SerPl-aCncon 4 HCG.beta subunit Qn 701.8 m[IU]/mL High <5.0 C [facility] Comment on above: Order Comment: Speci men Type: BLOOD SPECIMENOrdering Facility: [facility] Address: [address] [place] [address] Result Comment: LYNNE TITATIVE HCG NORMAL RANGES Weeks of Gestation (Weeks Since LMP) 3 Weeks (5.8-71.2 mIU/mL) 4 Weeks (9.5-750 mIU/mL) 5 Weeks (217-7138 mIU/mL) 6 Weeks (158-10181 mIU/mL) 7 Weeks (3697-373865 mIU/mL) 8 Weeks (42600-950867 mIU/mL) 9 Weeks (60298-517378 mIU/mL) 10 Weeks (10753-836577 mIU/mL) 12 Weeks (94903-471519 mIU/mL) Referenced to 4th [facility] Performed By: #### 2 1198-7 ####[facility] [id number] [facility] [id number] [place] [address] [place] CNPNon 11-17-2023 CNPN Telephone (OBGYWM) BEATRIZMICHELLE CRANE ([id number]) 1985 F Date Time Provider Department 11/17/23 PAULINE FERGUSON During your visit today, we recorded the following information about you: Kajal Pena RN 11/17/2023 10:56 AM Signed LMP approximately 10/04 Patient went to care center today and not able to do an internal pelvic US due to spotting. Patient states it's been 3 days, only when she wipes, alternates between bright red and pink. Minimal cramping. No recent intercourse. Patient had hCG on 11/07 and it was 67. Went to [facility] ER on 11/12. In Care Everywhere. hCG was 403. Yesterday, it was 1,034 per patient. Her NOB is 11/20. Do you have any further recommendations before her appointment? SHANELLE Clay Jessica, APRN.CNM 11/17/2023 1:52 PM Signed Avoid intercourse, nothing in the vagina. Rest, hydration. If increased bleeding or pain to be seen for appointment. OK to monitor at this time. Thanks, Pauline Ferguson APRN.[facility] Neena Guillory RN 11/17/2023 2:06 PM Signed Attempted to call patient, unable to leave message due to mailbox full. SHANELLE Isidro Danielle, RN 11/17/2023 4:01 PM Signed Attempted to contact patient again. Will send [employer] message. Neena Guillory RN Allergies As of Date: 11/17/2023 (No Known Allergies) Date Reviewed: 11/07/2023 Reviewed by: Aaliyah Perez APRN.BONUS CLERK - Fully Assessed Reason for Visit: Early OB Spotting [Other] Problem List As Of Date 11/17/2023 Noted Resolved Bipolar 2 disorder (HCC) [F31.81] 11/03/2022 STORMY (generalized anxiety disorder) [F41.1] 11/03/2022 Encounter Status:Closed by KAJAL PENA on 11/17/23 Normal [facility] B-HCG SerPl-aCncon 4 HCG.beta subunit Qn 1034.0 m[IU]/mL High <5.0 [facility] Comment on above: Order Comment: Speci men Type: BLOOD SPECIMENOrdering Facility: [facility] Address: ATTN: LABORATORY, [place] [address] Result Comment: LYNNE TITATIVE HCG NORMAL RANGES Weeks of Gestation (Weeks Since LMP) 3 Weeks (5.8-71.2 mIU/mL) 4 Weeks (9.5-750 mIU/mL) 5 Weeks (217-7138 mIU/mL) 6 Weeks (158-44955 mIU/mL) 7 Weeks (3697-889045 mIU/mL) 8 Weeks (04408-872359 mIU/mL) 9 Weeks (36622-805542 mIU/mL) 10 Weeks (18108-283789 mIU/mL) 12 Weeks (02575-022569 mIU/mL) Referenced to 4th [facility] Performed By: #### 2 1198-7 ####[facility] [id number] [place] [id number] [place] CNPLeeann 11-15-2023 CNPN Telephone (INTMWS) MICHELLE HENDERSON ([id number]) 1985 F Date Time Provider Department 11/15/23 AALIYAH PEREZ INTLateshaWS During your visit today, we recorded the following information about you: Sejal Keith Ma 11/15/2023 9:27 AM Signed Type of form: Employee Medical Statement 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 Form has been forwarded to: Provider's desk. Provider name: JOAQUIN Casillas Ma, Naz M, APRN.JACQUELYN 11/15/2023 10:53 AM Signed I have only seen this patient for acute visits. She will need a physical Aaliyah Perez APRN.Sejal Lynn Ma 11/15/2023 11:13 AM Signed Pt notified, was previously scheduled for end of nov. States that she can't wait that long. Rescheduled for 11/27. Allergies As of Date: 11/15/2023 (No Known Allergies) Date Reviewed: 11/07/2023 Reviewed by: Aaliyah Perez APRN.BONUS CLERK - Fully Assessed Reason for Visit: Forms [913] Problem List As Of Date 11/15/2023 Noted Resolved Bipolar 2 disorder (HCC) [F31.81] 11/03/2022 STORMY (generalized anxiety disorder) [F41.1] 11/03/2022 Encounter Status:Closed by SEJAL KEITH MA on 11/15/23 Normal [facility] B-HCG SerPl-aCndori 4 HCG.beta subunit Qn 67.9 m[IU]/mL High <5.0 Cl [facility] Comment on above: Order Comment: Speci men Type: BLOOD SPECIMENOrdering Facility: [facility] Address: [address] [place] [address] Result Comment: LYNNE TITATIVE HCG NORMAL RANGES Weeks of Gestation (Weeks Since LMP) 3 Weeks (5.8-71.2 mIU/mL) 4 Weeks (9.5-750 mIU/mL) 5 Weeks (217-7138 mIU/mL) 6 Weeks (158-90111 mIU/mL) 7 Weeks (3697-792081 mIU/mL) 8 Weeks (49846-943932 mIU/mL) 9 Weeks (03218-487153 mIU/mL) 10 Weeks (25016-838908 mIU/mL) 12 Weeks (84006-455735 mIU/mL) Referenced to 4th [facility] Performed By: #### 2 1198-7 ####[facility]EN[facility] [id number] [place] [id number] [place] CNOVon 11-07-2023 CNOV Office Visit (INTMWS ) MICHELLE HENDERSON ([id number]) 1985 F Date Time Provider Department 11/07/23 9:20 AM AALIYAH PEREZ INTMWS During your visit today, we recorded the following information about you: Pulse Respiration Blood pressure Weight 86/minute 16/minute 112/74 83 kg Last Period 10/04/23 Aaliyah Perez, DEBEAKER.BONUS CLERK 11/07/2023 9:26 AM Signed CC: Patient presents with: possible HPI Michelle Henderson is a 38 year old female who presents today for above. Patient reports missed period, nausea, urinary frequency and breast tenderness. She missed a few doses of her control last month. She has taken a few home tests that were faintly positive and then a digital test this morning was positive as well. She is requesting a blood test to confirm. Automobile Parker with [facility]. Review of Systems See HPI PAST MEDICAL [...] per her request. Recommend scheduling with her hemodialysis patient care specialist, she is agreeable. - CONSULT TO MFTS - HCG QUANTITATIVE Prescription instructions reviewed with patient as applicable. Potential red flag symptoms discussed with the patient. Reviewed appropriate action plan to take if red flag symptoms occur. Patient agreeable to treatment plan. During this patient visit I have spent approximately 20 minutes in counseling regarding test results and coordinating care. Aaliyah Perez APRN.BONUS CLERK Allergies As of Date: 11/07/2023 (No Known Allergies) Date Reviewed: 11/07/2023 Reviewed by: Aaliyah Perez APRN.BONUS CLERK - Fully Assessed Reason for Visit: possible [Other] Primary Visit Diagnosis:Positive test [Z32.01] Order(s):CONSULT TO MFTS [9021] Order #: [id number]: 1 FUTURE HCG QUANTITATIVE [SQHCGQT] Order #: [id number] FUTURE Problem List As Of Date 11/07/2023 Noted Resolved Bipolar 2 disorder (HCC) [F31.81] 11/03/2022 STORMY (generalized anxiety disorder) [F41.1] 11/03/2022 Medications Discontinued During This Encounter Prescriptions - Desogestrel-Ethinyl Estradiol (APRI) 0.15-0.03 mg per tablet (Discontinued) Reported on 11/07/2023 - lamoTRIgine (LAMICTAL) 100 mg tablet (Discontinued) Take 1 tablet by mouth once daily for 14 days, THEN 1.5 tablets once daily. Encounter Status:Closed by AALIYAH PEREZ on 11/07/23 Normal [facility] PRIYANKA DIAG W BERTA RTon 024 PRIYANKA DIAG W BERTA RT * * *Final Report* * * DATE OF EXAM: Oct 31 2023 3:07PM [id number] - PRIYANKA DIAG W BERTA RT / PROCEDURE REASON: Mass of lower inner quadrant of right breast * * * * Physician Interpretation * * * * RESULT: #[id number] - [facility] DIAG W BERTA RT #[id number] - PRIYANKA US BREAST LTD RT UNILATERAL RIGHT DIGITAL DIAGNOSTIC MAMMOGRAM TOMOSYNTHESIS WITH CAD: 10/31/2023 HISTORY: Lump rt breast for couple wks /priors available for comparison Mass Of Lower Inner Quadrant Of Right Breast Mass Of Lower Inner Quadrant Of Right Breast. RESULT: TECHNIQUE: The study was acquired using full field digital technology and interpreted from soft copy. Digital Breast Tomosynthesis (DBT) images were obtained and used to assist in the interpretation of this examination. Current study was also evaluated with a Computer Aided Detection (CAD). Comparison is made to exams dated: 01/11/2023 mammogram and 09/17/2021 mammogram - [facility]. The right breast is extremely dense, which lowers the sensitivity of mammography. No significant masses, calcifications, or other findings are seen in the breast. IMPRESSION: NEGATIVE There is no abnormality seen in the right breast to correspond with the palpable abnormality, however, clinical correlation is recommended. There is no mammographic evidence of malignancy. LIMITED ULTRASOUND OF RIGHT BREAST: 10/31/2023 RESULT: Comparison is made to exams dated: 01/11/2023 mammogram and 09/17/2021 mammogram - [facility]. Real-time ultrasound of the right breast was performed. Diane scale images of the real-time examination were reviewed. IMPRESSION: NEGATIVE There is no sonographic evidence of malignancy. There is no abnormality seen in the right breast to correspond with the palpable abnormality, however, clinical correlation is recommended. Return to annual mammogram screening schedule is recommended. Toñito burt/manfred:10/31/2023 15:33:19 Multiple national specialty organizations have released breast cancer screening guidelines for women at average risk for developing breast cancer - guidelines that are based on both evidence and opinion, yet differ on when to start and how often to screen for breast cancer. With representation from Breast Imaging, Internal Medicine, Women's Health, Family Medicine, and Medical/Surgical Oncology, the [facility] has carefully reviewed the data and reached the following consensus: 1) All women should engage in shared decision-making with their providers to decide when to start and how often to screen; 2) All women should have the opportunity to start screening mammography at age 40; 3) For women ages 45-55, we recommend annual screening mammograms; 4) For women ages 55 and over, we support both the transition from an annual to a biennial interval if this aligns more with patient's values and preferences, or continuation with annual screening; 5) All women should discuss with their providers when to stop screening mammograms. Unclaimed Property Manager(s): Anay Spence, [facility]; RT Michele(R)(M), [facility] OVERALL STUDY BIRADS: 1 Negative Bridge Expert: Manfred Transcribe Date/Time: Oct 31 2023 2:52P Dictated by: TOÑITO VAUGHN MD This examination was interpreted and the report reviewed and electronically signed by: TOÑITO VAUGHN MD on Oct 31 2023 3:33PM EST [id number] Normal [facility] US BREAST LTD RTon 10-31 [facility] US BREAST LTD RT * * *Final Report* * * DATE OF EXAM: Oct 31 2023 3:29PM WRU [id number] - [facility] BevyUp BREAST LTD RT / PROCEDURE REASON: Mass of lower inner quadrant of right breast * * * * Physician Interpretation * * * * #[id number] - [facility] DIAG W BERTA RT #[id number] - [facility] US BREAST LTD RT UNILATERAL RIGHT DIGITAL DIAGNOSTIC MAMMOGRAM TOMOSYNTHESIS WITH CAD: 10/31/2023 HISTORY: Lump rt breast for couple wks /priors available for comparison Mass Of Lower Inner Quadrant Of Right Breast Mass Of Lower Inner Quadrant Of Right Breast. RESULT: TECHNIQUE: The study was acquired using full field digital technology and interpreted from soft copy. Digital Breast Tomosynthesis (DBT) images were obtained and used to assist in the interpretation of this examination. Current study was also evaluated with a Computer Aided Detection (CAD). Comparison is made to exams dated: 01/11/2023 mammogram and 09/17/2021 mammogram - [facility]. The right breast is extremely dense, which lowers the sensitivity of mammography. No significant masses, calcifications, or other findings are seen in the breast. IMPRESSION: NEGATIVE There is no abnormality seen in the right breast to correspond with the palpable abnormality, however, clinical correlation is recommended. There is no mammographic evidence of malignancy. LIMITED ULTRASOUND OF RIGHT BREAST: 10/31/2023 RESULT: Comparison is made to exams dated: 01/11/2023 mammogram and 09/17/2021 mammogram - [facility]. Real-time ultrasound of the right breast was performed. Diane scale images of the real-time examination were reviewed. IMPRESSION: NEGATIVE There is no sonographic evidence of malignancy. There is no abnormality seen in the right breast to correspond with the palpable abnormality, however, clinical correlation is recommended. Return to annual mammogram screening schedule is recommended. Toñito burt/manfred:10/31/2023 15:33:19 Multiple national specialty organizations have released breast cancer screening guidelines for women at average risk for developing breast cancer - guidelines that are based on both evidence and opinion, yet differ on when to start and how often to screen for breast cancer. With representation from Breast Imaging, Internal Medicine, Women's Health, Family Medicine, and Medical/Surgical Oncology, the [facility] has carefully reviewed the data and reached the following consensus: 1) All women should engage in shared decision-making with their providers to decide when to start and how often to screen; 2) All women should have the opportunity to start screening mammography at age 40; 3) For women ages 45-55, we recommend annual screening mammograms; 4) For women ages 55 and over, we support both the transition from an annual to a biennial interval if this aligns more with patient's values and preferences, or continuation with annual screening; 5) All women should discuss with their providers when to stop screening mammograms. Unclaimed Property Manager(s): Anay Spence, [facility]; RT Michele(R)(M), [facility] OVERALL STUDY BIRADS: 1 Negative Bridge Expert: Manfred Transcribe Date/Time: Oct 31 2023 2:52P Dictated by : TOÑITO VAUGHN MD This examination was interpreted and the report reviewed and electronically signed by: TOÑITO VAUGHN MD on Oct 31 2023 3:33PM EST [id number] Normal [facility] CNOVon 10-06-2023 CNOV Office Visit (INTMWS ) MICHELLE HENDERSON ([id number]) 1985 F Date Time Provider Department 10/06/23 9:00 AM AALIYAH PEREZ INTMWS During your visit today, we recorded the following information about you: Pulse Respiration Blood pressure Weight 82/minute 16/minute 114/62 84.4 kg Aaliyah Perez, EVANGELINA.[facility] 10/06/2023 9:24 AM Signed CC: Patient presents with: Breast Problem: Lump on right breast HPI Michelle Henderson is a 38 year old female who [...] made to exam dated: 09/17/2021 mammogram - [facility]. There is a benign 1.9 cm x [...] the right breast Evaluate further with: - [facility] DIAGNOSTIC RIGHT - US BREAST LTD RIGHT Follow-up pending results Prescription instructions reviewed with patient as applicable. Potential red flag symptoms discussed with the patient. Reviewed appropriate action plan to take if red flag symptoms occur. Patient agreeable to treatment plan. Aaliyah Perez APRN.BONUS CLERK Allergies As of Date: 10/06/2023 (No Known Allergies) Date Reviewed: 10/06/2023 Reviewed by: Luda Burr - Fully Assessed Reason for Visit: Breast Problem [16] Cmt: Lump on right breast Primary Visit Diagnosis:Mass of lower inner quadrant of right breast [N63.14] Order(s):[facility] DIAGNOSTIC RIGHT [[id number]] Order #: [id number] FUTURE US BREAST LTD RIGHT [[id number]] Order #: [id number] FUTURE Prescriptions as of 10/06/2023 - lamoTRIgine (LAMICTAL) 100 mg tablet Take 1 tablet by mouth once daily for 14 days, THEN 1.5 tablets once daily. - Desogestrel-Ethinyl Estradiol (APRI) 0.15-0.03 mg per tablet Take 1 tablet by mouth once daily. Problem List As Of Date 10/06/2023 Noted Resolved Bipolar 2 disorder (HCC) [F31.81] 11/03/2022 STORMY (generalized anxiety disorder) [F41.1] 11/03/2022 Encounter Status:Closed by AALIYAH PEREZ on 10/06/23 Normal [facility] B-HCG SerPl-aCncon 3 HCG.beta subunit Qn m[IU]/mL Normal <5.0 [facility] Comment on above: Order Comment: Speci men Type: BLOOD SPECIMENOrdering Facility: [facility] Address: [address] [place] [address] Result Comment: Tom starr Performed By: #### 2 1198-7 ####[facility] [id number] [place] [address] [place] CBC W Auto Differential pane l (Bld)on 09-08-2023 Basophils (Bld) [#/Vol] 0.03 10*3/uL Normal <0.11 [facility] Comment on above: Order Comment: Speci men Type: BLOOD SPECIMENOrdering Facility: [facility] Address: [address] [place] [address] Performed By: #### 5 7021-8 ####[facility] [id number] [place] [address] [place] Basophils/100 WBC (Bld) 0.6 % Normal [facility] Comment on above: Order Comment: Speci men Type: BLOOD SPECIMENOrdering Facility: [facility] Address: [address] [place] [address] Performed By: #### 5 7021-8 ####[facility] [id number] [place] [address] [place] Differential cell count method Nom (Bld) Auto Normal [facility] Comment on above: Order Comment: Speci men Type: BLOOD SPECIMENOrdering Facility: [facility] Address: [address] [place] [address] Performed By: #### 5 7021-8 ####[facility] [id number] [place] [address] [place] Eosinophils (Bld) [#/Vol] 0.05 10*3/uL Normal <0.46 [facility] Comment on above: Order Comment: Speci men Type: BLOOD SPECIMENOrdering Facility: [facility] Address: [address] [place] [address] Performed By: #### 5 7021-8 ####[facility] [id number] [place] [address] [place] Eosinophils/100 WBC (Bld) 0.9 % Normal [facility] Comment on above: Order Comment: Speci men Type: BLOOD SPECIMENOrdering Facility: [facility] Address: [address] [place] [address] Performed By: #### 5 7021-8 ####[facility] [id number] [place] [address] [place] Erythrocyte distribution width (RBC) [Ratio] 12.6 % Normal 11.5-15.0 [facility] Comment on above: Order Comment: Speci men Type: BLOOD SPECIMENOrdering Facility: [facility] Address: [address] [place] [address] Performed By: #### 5 7021-8 ####[facility] [id number] [place] [address] [place] Hematocrit (Bld) [Volume fraction] 41.1 % Normal 36.0-46.0 [facility] Comment on above: Order Comment: Speci men Type: BLOOD SPECIMENOrdering Facility: [facility] Address: [address] [place] [address] Performed By: #### 5 7021-8 ####[facility] [id number] [place] [address] [place] Hemoglobin (Bld) [Mass/Vol] 13.7 g/dL Normal 11.5-15.5 [facility] Comment on above: Order Comment: Speci men Type: BLOOD SPECIMENOrdering Facility: [facility] Address: [address] [place] [address] Performed By: #### 5 7021-8 ####[facility] [id number] [place] [address] [place] Immature granulocytes (Bld) [#/Vol] 0.03 10*3/uL Normal <0.10 [facility] Comment on above: Order Comment: Speci men Type: BLOOD SPECIMENOrdering Facility: [facility] Address: [address] [place] [address] Performed By: #### 5 7021-8 ####[facility] [id number] [place] [address] [place] Immature granulocytes/100 WBC (Bld) 0.6 % Normal [facility] Comment on above: Order Comment: Speci men Type: BLOOD SPECIMENOrdering Facility: [facility] Address: [address] [place] [address] Performed By: #### 5 7021-8 ####[facility] [id number] [place] [address] [place] Lymphocytes (Bld) [#/Vol] 1.60 10*3/uL Normal 1.00-4.00 [facility] Comment on above: Order Comment: Speci men Type: BLOOD SPECIMENOrdering Facility: [facility] Address: [address] [place] [address] Performed By: #### 5 7021-8 ####[facility] [id number] [place] [address] [place] Lymphocytes/100 WBC (Bld) 30.1 % Normal [facility] Comment on above: Order Comment: Speci men Type: BLOOD SPECIMENOrdering Facility: [facility] Address: [address] [place] [address] Performed By: #### 5 7021-8 ####[facility] [id number] [place] [address] [place] MCH (RBC) [Entitic mass] 30.2 pg Normal 26.0-34.0 [facility] Comment on above: Order Comment: Speci men Type: BLOOD SPECIMENOrdering Facility: [facility] Address: [address] [place] [address] Performed By: #### 5 7021-8 ####[facility] [id number] [place] [address] [place] MCHC (RBC) [Mass/Vol] 33.3 g/dL Normal 30.5-36.0 [facility] Comment on above: Order Comment: Speci men Type: BLOOD SPECIMENOrdering Facility: [facility] Address: [address] [place] [address] Performed By: #### 5 7021-8 ####[facility] [id number] [place] [address] [place] MCV (RBC) [Entitic vol] 90.5 fL Normal 80.0-100.0 [facility] Comment on above: Order Comment: Speci men Type: BLOOD SPECIMENOrdering Facility: [facility] Address: [address] [place] [address] Performed By: #### 5 7021-8 ####[facility] [id number] [place] [address] [place] Monocytes (Bld) [#/Vol] 0.33 10*3/uL Normal <0.87 [facility] Comment on above: Order Comment: Speci men Type: BLOOD SPECIMENOrdering Facility: [facility] Address: [address] [place] [address] Performed By: #### 5 7021-8 ####[facility] [id number] [place] [address] [place] Monocytes/100 WBC (Bld) 6.2 % Normal [facility] Comment on above: Order Comment: Speci men Type: BLOOD SPECIMENOrdering Facility: [facility] Address: [address] [place] [address] Performed By: #### 5 7021-8 ####[facility] [id number] [place] [address] [place] Neutrophils (Bld) [#/Vol] 3.27 10*3/uL Normal 1.45-7.50 [facility] Comment on above: Order Comment: Speci men Type: BLOOD SPECIMENOrdering Facility: [facility] Address: [address] [place] [address] Performed By: #### 5 7021-8 ####[facility] [id number] [place] [address] [place] Neutrophils/100 WBC (Bld) 61.6 % Normal [facility] Comment on above: Order Comment: Speci men Type: BLOOD SPECIMENOrdering Facility: [facility] Address: [address] [place] [address] Performed By: #### 5 7021-8 ####[facility] [id number] [place] [address] [place] Nucleated RBC (Bld) [#/Vol] 10*3/uL Normal <0.01 [facility] Comment on above: Order Comment: Speci men Type: BLOOD SPECIMENOrdering Facility: [facility] Address: [address] [place] [address] Performed By: #### 5 7021-8 ####[facility] [id number] [place] [address] [place] Nucleated RBC/100 WBC (Bld) [Ratio] 0.0 /100 WBC Normal [facility] Comment on above: Order Comment: Speci men Type: BLOOD SPECIMENOrdering Facility: [facility] Address: [address] [place] [address] Performed By: #### 5 7021-8 ####[facility] [id number] [place] [address] [place] Platelet mean volume (Bld) [Entitic vol] 11.3 fL Normal 9.0-12.7 [facility] Comment on above: Order Comment: Speci men Type: BLOOD SPECIMENOrdering Facility: [facility] Address: [address] [place] [address] Performed By: #### 5 7021-8 ####[facility] [id number] [place] [address] [place] Platelets (Bld) [#/Vol] 284 10*3/uL Normal 150-400 [facility] Comment on above: Order Comment: Speci men Type: BLOOD SPECIMENOrdering Facility: [facility] Address: [address] [place] [address] Performed By: #### 5 7021-8 ####[facility] [id number] [place] [address] [place] RBC (Bld) [#/Vol] 4.54 10*6/uL Normal 3.90-5.20 [facility] Comment on above: Order Comment: Speci men Type: BLOOD SPECIMENOrdering Facility: [facility] Address: [address] [place] [address] Performed By: #### 5 7021-8 ####[facility] [id number] [place] [address] [place] WBC (Bld) [#/Vol] 5.31 10*3/uL Normal 3.70-11.00 [facility] Comment on above: Order Comment: Speci men Type: BLOOD SPECIMENOrdering Facility: [facility] Address: [place] [address] Performed By: #### 5 7021-8 ####[facility] [id number] LATASHA VALADEZ [id number] STATES OF [facility] CNOVon 09-08-2023 CNOV Office Visit (INTMWS ) MICHELLE HENDERSON ([id number]) 1985 F Date Time Provider Department 09/08/23 8:00 AM AALIYAH PINEDA INTMWS During your visit today, we recorded the following information about you: Pulse Blood pressure Weight 80/minute 136/87 84.8 kg Aaliyah Pineda APRN.BONUS CLERK 09/08/2023 9:11 AM Signed CC: Patient presents with: Dizziness: Has taken HPI Michelle Koch McKeown is a 38 year old female who [...] speech difficulty, weakness, light-headedness, numbness and headaches. Psychiatric/Behavioral : Positive for sleep disturbance. The patient is [...] intact. Coordination: Romberg sign negative. Coordination normal. Ajpwig-Fgda-Eeenhw Test normal. Rapid alternating movements normal. Gait: Gait and tandem walk normal. Deep Tendon Reflexes: Reflexes are normal and symmetric. Comments: Aníbal Hallpike negative DATA REVIEWED: Most recent labs ASSESSMENT/PLAN: 1. Dizziness - ICD9: 780.4, ICD10: R42 (primary diagnosis) Etiology unclear. No alarm symptoms or exam findings. Neuro exam benign. [place] Hallpike negative Check labs: - CBC + DIFF - COMP METABOLIC PANEL Follow-up pending results 2. Missed period - ICD9: 626.4, ICD10: N92.6 - HCG QUANTITATIVE Prescription instructions reviewed with patient as applicable. Potential red flag symptoms discussed with the patient. Reviewed appropriate action plan to take if red flag symptoms occur. Patient agreeable to treatment plan. Aaliyah Pineda, EVANGELINA.BONUS CLERK Allergie (more content not included)... Normal [facility] Comprehensive metabolic 2000 panelon 09-08-2023 Albumin [Mass/Vol] 4.1 g/dL Normal 3.9-4.[address] [facility] Comment on above: Order Comment: Speci men Type: BLOOD SPECIMENOrdering Facility: [facility] Address: [address] [place] [address] Performed By: #### 2 4323-8 ####[facility] [id number] [place] [address] [place] ALP [Catalytic activity/Vol] 55 U/L Normal 34-123 [facility] Comment on above: Order Comment: Speci men Type: BLOOD SPECIMENOrdering Facility: [facility] Address: [address] [place] [address] Performed By: #### 2 4323-8 ####[facility] [id number] [place] [address] [place] ALT [Catalytic activity/Vol] 24 U/L Normal 7-38 [facility] Comment on above: Order Comment: Speci men Type: BLOOD SPECIMENOrdering Facility: [facility] Address: [address] [place] [address] Performed By: #### 2 4323-8 ####[facility] [id number] [place] [address] [place] Anion gap [Moles/Vol] 9 mmol/L Normal 9-18 [facility] Comment on above: Order Comment: Speci men Type: BLOOD SPECIMENOrdering Facility: [facility] Address: [address] [place] [address] Performed By: #### 2 4323-8 ####[facility] [id number] [place] [address] [place] AST [Catalytic activity/Vol] 23 U/L Normal 13-35 [facility] Comment on above: Order Comment: Speci men Type: BLOOD SPECIMENOrdering Facility: [facility] Address: [address] [place] [address] Performed By: #### 2 4323-8 ####[facility] [id number] [place] [address] [place] Bilirubin [Mass/Vol] 0.3 mg/dL Normal 0.2-1.[address] [facility] Comment on above: Order Comment: Speci men Type: BLOOD SPECIMENOrdering Facility: [facility] Address: [address] [place] [address] Performed By: #### 2 4323-8 ####[facility] [id number] [place] [address] [place] Calcium [Mass/Vol] 9.6 mg/dL Normal 8.5-10.[address] [facility] Comment on above: Order Comment: Speci men Type: BLOOD SPECIMENOrdering Facility: [facility] Address: [address] [place] [address] Performed By: #### 2 4323-8 ####[facility] [id number] [place] [address] [place] Chloride [Moles/Vol] 107 mmol/L High 97-[address] [facility] Comment on above: Order Comment: Speci men Type: BLOOD SPECIMENOrdering Facility: [facility] Address: [address] [place] [address] Performed By: #### 2 4323-8 ####[facility] [id number] [place] [address] [place] CO2 [Moles/Vol] 26 mmol/L Normal 22-30 [facility] Comment on above: Order Comment: Speci men Type: BLOOD SPECIMENOrdering Facility: [facility] Address: [address] [place] [address] Performed By: #### 2 4323-8 ####[facility] [id number] [place] [address] [place] Creatinine [Mass/Vol] 0.94 mg/dL Normal 0.58-0.96 [facility] Comment on above: Order Comment: Speci men Type: BLOOD SPECIMENOrdering Facility: [facility] Address: [address] [place] [address] Performed By: #### 2 4323-8 ####[facility] [id number] [address] [place] Creatinine and Glomerular filtration rate.predicted panel (S/P/Bld) 79 mL/min/1.73m??? Normal >=60 [facility] Comment on above: Order Comment: Speci men Type: BLOOD SPECIMENOrdering Facility: [facility] Address: [address] [place] [address] Result Comment: Bridgett mated Glomerular Filtration Rate (eGFR) is calculated using the 2020 CKD-EPI creatinine equation. This equation utilizes serum creatinine, sex, and age as parameters. The creatinine assay has traceable calibration to isotope dilution-mass spectrometry. Refer to KDIGO guidelines for clinical interpretation. In patients with unstable renal function, e.g. those with acute kidney injury, the eGFR may not accurately reflect actual GFR. Performed By: #### 2 4323-8 ####[facility] [id number] [place] [address] [place] Glucose [Mass/Vol] 94 mg/dL Normal 74-[address] [facility] Comment on above: Order Comment: Speci men Type: BLOOD SPECIMENOrdering Facility: [facility] Address: [address] [place] [address] Result Comment: The [place] Diabetes Association (ADA) provides guidance for cutoff values for fasting glucose and random glucose. The ADA defines fasting as no caloric intake for at least 8 hours. Fasting plasma glucose results between 100 to 125 mg/dL indicate increased risk for diabetes (prediabetes). Fasting plasma glucose results greater than or equal to 126 mg/dL meet the criteria for diagnosis of diabetes. In the absence of unequivocal hyperglycemia, results should be confirmed by repeat testing. In a patient with classic symptoms of hyperglycemia or hyperglycemic crisis, random plasma glucose results greater than or equal to 200 mg/dL meet the criteria for diagnosis of diabetes. Reference: Standards of Medical Care in Diabetes 2016, [place] Diabetes Association. Diabetes Care. 2016.39(Suppl 1). Performed By: #### 2 4323-8 ####[facility] [id number] [place] [address] [place] Potassium [Moles/Vol] 3.6 mmol/L Low 3.7-5.1 [facility] Comment on above: Order Comment: Speci men Type: BLOOD SPECIMENOrdering Facility: [facility] Address: [address] [place] [address] Performed By: #### 2 4323-8 ####[facility] [id number] [place] [id number] [place] Protein [Mass/Vol] 6.8 g/dL Normal 6.3-8.[address] [facility] Comment on above: Order Comment: Speci men Type: BLOOD SPECIMENOrdering Facility: [facility] Address: [address] [place] [address] Performed By: #### 2 4323-8 ####[facility] [id number] [place] [address] [place] Sodium [Moles/Vol] 142 mmol/L Normal 136-[address] [facility] Comment on above: Order Comment: Speci men Type: BLOOD SPECIMENOrdering Facility: [facility] Address: [address] [place] [address] Performed By: #### 2 4323-8 ####[facility] [id number] [place] [address] [place] Urea nitrogen [Mass/Vol] 8 mg/dL Normal 7-21 [facility] Comment on above: Order Comment: Speci men Type: BLOOD SPECIMENOrdering Facility: [facility] Address: [address] [place] [address] Performed By: #### 2 4323-8 ####[facility] [id number] [place] [address] [place] PRIYANKA DIAG W BERTA RTon 01-11- 023 [facility] HCG QUAL UR B/Oon 11-15-2022 status Negative neg - pos Jaxon tovar [facility] Quality Check Yes [facility] CNCOon 10-20-2022 CNCO Letter Text Normal [facility] CNPNon 10-12-2022 CNPN Telephone (AGSPINE3) MICHELLE HENDERSON ([id number]) 1985 F Date Time Provider Department 10/12/22 ALMITA LOWERY AGSPINE3 During your visit today, we recorded the following information about you: Edis Monge 10/12/2022 10:07 AM Signed Patients 11/10/21 appointment needs rescheduled due to provider vacation, called patient to reschedule but no answer and the VM box was full so could not leave message. I have set out a L2t message regarding this issue. According to patients chart this appointment is not for any medications there for it can be rescheduled to the firs available whether in person or VV Edis Monge 10/20/2022 8:48 AM Signed Second attempt to reschedule patients appointment. No answer and VM box is still full so unable to leave VM. Mailed out an ATC letter. Allergies As of Date: 10/12/2022 (No Known Allergies) Date Reviewed: 09/16/2022 Reviewed by: Salud Scruggs APRN.BONUS CLERK - Fully Assessed Reason for Visit: Appointment [186] Prescriptions as of 10/20/2022 - Desogestrel-Ethinyl Estradiol (APRI) 0.15-0.03 mg per tablet Take 1 tablet by mouth once daily. - nabumetone (RELAFEN) 500 mg tablet Take 1 tablet by mouth twice daily as needed for pain (WITH FOOD). Problem List As Of Date: 10/12/2022 (None) Encounter Status:Closed by EDIS MONGE on 10/12/22 [facility] Maria Elena 09-08-2022 CNOV Office Visit (SPAGWO ) MICHELLE HENDERSON ([id number]) 1985 F Date Time Provider Department 09/08/22 9:00 AM ALMITA LOWERY During your visit today, we recorded the following information about you: Pulse Respiration Normal [facility] Brooke 09-08-2022 BABS Telephone (SPAGWO) MICHELLE HENDERSON ([id number]) 1985 F Date Time Provider Department 09/08/22 HILARIO GREGORY During your visit today, we recorded the following information about you: Gwen Hi 09/08/2022 11:32 AM Signed Sent internal referral Confirmation#: [id number] Allergies As of Date: 09/08/2022 (No Known Allergies) Date Reviewed: 09/08/2022 Reviewed by: Almita Lowery APRN.BONUS CLERK - Fully Assessed Reason for Visit: Patient Update [1234] Cmt: Internal referral Prescriptions as of 09/08/2022 - nabumetone (RELAFEN) 500 mg tablet Take 1 tablet by mouth twice daily as needed for pain (WITH FOOD). - gabapentin (NEURONTIN) 100 mg capsule take 1 capsule by mouth once daily - ARIPiprazole (ABILIFY) 2 mg tablet take 1/2 tablet by mouth once daily for 14 days then 1 tablet once daily for 14 days - hydrOXYzine HCl (ATARAX) 25 mg tablet Take 1-2 tablets by mouth three times daily as needed. Problem List As Of Date: 09/08/2022 (None) Encounter Status:Closed by SIEGELCYRILGWEN on 09/08/22 [facility] XR LUMBAR GENERAL 3V AP/LAT/ L5-S1on 07-12-2022 [facility] XR Lumbar spine 3 Viewson IMPRESSION: Negative lumbosacral spine. [facility] Transcribe Date/Time: Jul 12 2022 5:50P Dictated by : FLORINA BELL MD This examination was interpreted and the report reviewed and electronically signed by: FLORINA BELL MD on Jul 12 2022 5:52PM [facility] DIVISION OF RADIOLOGY * * *Final Report* * * DATE OF EXAM: Jul 12 2022 4:56PM WOX [id number] - XR LUMBAR 3V AP/LAT/L5-S1 / PROCEDURE REASON: multiple diagnoses * * * * Physician Interpretation * * * * EXAMINATION: XR LUMBAR 3V AP/LAT/L5-S1 HISTORY: Chronic bilateral low back pain with bilateral sciatica. TECHNIQUE: XR LUMBAR 3V AP/LAT/L5-S1 Laterality: NOT APPLICABLE Number of different views (projections): 3 M: XB_1 COMPARISON: There are no prior relevant examinations available for comparison within the [facility] Imaging Archives. RESULT: Counting reference: Lumbosacral junction. For the [...] normal alignment. The soft tissues are unremarkable. DIVISION OF RADIOLOGY Provider, [facility] - 07/12/2022 * * *Final Report* * * DATE OF EXAM: Jul 12 2022 4:56PM WOX [id number] - XR LUMBAR 3V AP/LAT/L5-S1 / PROCEDURE REASON: multiple diagnoses * * * * Physician Interpretation * * * * EXAMINATION: XR LUMBAR 3V AP/LAT/L5-S1 HISTORY: Chronic bilateral low back pain with bilateral sciatica. TECHNIQUE: XR LUMBAR 3V AP/LAT/L5-S1 Laterality: NOT APPLICABLE Number of different views (projections): 3 M: XB_1 COMPARISON: There are no prior relevant examinations available for comparison within the [facility] Imaging Archives. RESULT: Counting reference: Lumbosacral junction. For the [...] normal alignment. The soft tissues are unremarkable. IMPRESSION IMPRESSION: Negative lumbosacral spine. Bridge Expert: PSCB Transcribe Date/Time: Jul 12 2022 5:50P Dictated by : FLORINA BELL MD This examination was interpreted and the report reviewed and electronically signed by: FLORINA BELL MD on Jul 12 2022 5:52PM EST [facility] Radiology Study observation (narrative) [facility] XR Lumbar spine 3 ViewsOrder ed By: Ccf Provider on 07-12-2022 [facility] Vital Signs Date Time Vital Sign Value Performing Clinician Faci lity 04-02-2024 15:12-0400 Body mass index (BMI) [Ratio] 35.6 kg/m2 Constantino Gonzlaez MD Work Phone: [facility] 04-02-2024 15:12-0400 Body weight 91.72 kg Constantino Gonzalez MD Work Phone: [facility] 04-02-2024 15:12-0400 Diastolic blood pressure 80 mm[Hg] Constantino Gonzalez MD Work Phone: [facility] 04-02-2024 15:12-0400 Systolic blood pressure 120 mm[Hg] Constantino Gonzalez MD Work Phone: [facility] 02-14-2024 15:15-0400 Body mass index (BMI) [Ratio] 35.95 kg/m2 William Joseph MD Work Phone: [facility] 02-14-2024 15:15-0400 Body temperature 97.7 [degF] William Joseph MD Work Phone: [facility] 02-14-2024 15:15-0400 Body weight 92.6 kg William Joseph MD Work Phone: [facility] 02-14-2024 15:15-0400 Diastolic blood pressure 77 mm[Hg] William Joseph MD Work Phone: [facility] 02-14-2024 15:15-0400 Heart rate 59 /min William Joseph MD Work Phone: [facility] 02-14-2024 15:15-0400 Respiratory rate 18 /min William Joseph MD Work Phone: [facility] 02-14-2024 15:15-0400 SaO2% (BldA) [Mass fraction] 100 % William Joseph MD Work Phone: [facility] 02-14-2024 15:15-0400 Systolic blood pressure 120 mm[Hg] William Joseph MD Work Phone: [facility] 12-21-2023 09:53-0500 Body weight 87.54 kg Constantino Gonzalez MD Work Phone: [facility] 12-21-2023 09:53-0500 Diastolic blood pressure 60 mm[Hg] Constantino Gonzalez MD Work Phone: [facility] 12-21-2023 09:53-0500 Systolic blood pressure 104 mm[Hg] Constantino Gonzalez MD Work Phone: [facility] 11-27-2023 14:01-0500 Body height 160.5 cm Aaliyah Chris DEBEAKER.BONUS CLERK Work Phone: [facility] 11-27-2023 14:01-0500 Body weight 83.92 kg Aaliyah Chris DEBEAKER.BONUS CLERK Work Phone: [facility] 11-27-2023 14:01-0500 Diastolic blood pressure 68 mm[Hg] Aaliyah Chris DEBEAKER.BONUS CLERK Work Phone: [facility] 11-27-2023 14:01-0500 Heart rate 86 /min Aaliyah Chris DEBEAKER.BONUS CLERK Work Phone: [facility] 11-27-2023 14:01-0500 Respiratory rate 16 /min Aaliyah Chris DEBEAKER.BONUS CLERK Work Phone: [facility] 11-27-2023 14:01-0500 SaO2% (BldA) [Mass fraction] 98 % Aaliyah Chris DEBEAKER.BONUS CLERK Work Phone: [facility] 11-27-2023 14:01-0500 Systolic blood pressure 128 mm[Hg] Aaliyah Chris DEBEAKER.BONUS CLERK Work Phone: [facility] 11-23-2023 09:35-0500 Body weight 83.37 kg Linda Sloan MD Work Phone: [facility] 11-23-2023 09:35-0500 Diastolic blood pressure 66 mm[Hg] Linda Sloan MD Work Phone: [facility] 11-23-2023 09:35-0500 Systolic blood pressure 108 mm[Hg] Linda Sloan MD Work Phone: [facility] 09-08-2023 08:01-0500 Body weight 84.82 kg Aaliyah Older DEBEAKER.BONUS CLERK Work Phone: [facility] 09-08-2023 08:01-0500 Diastolic blood pressure 87 mm[Hg] Aaliyah Older DEBEAKER.BONUS CLERK Work Phone: [facility] 09-08-2023 08:01-0500 Heart rate 80 /min Aaliyah Older DEBEAKER.BONUS CLERK Work Phone: [facility] 09-08-2023 08:01-0500 Systolic blood pressure 136 mm[Hg] Aaliyah Older DEBEAKER.BONUS CLERK Work Phone: [facility] 12-09-2022 10:21-0500 Body height 160 cm Zheng Sharif MD Work Phone: [facility] 12-09-2022 10:21-0500 Body temperature 99.61 [degF] Zheng Sharif MD Work Phone: [facility] 12-09-2022 10:21-0500 Body weight 95.71 kg Zheng Sharif MD Work Phone: [facility] 12-09-2022 10:21-0500 Diastolic blood pressure 70 mm[Hg] Zheng Sharif MD Work Phone: [facility] 12-09-2022 10:21-0500 Heart rate 69 /min Zheng Sharif MD Work Phone: [facility] 12-09-2022 10:21-0500 Respiratory rate 12 /min Zheng Sharif MD Work Phone: [facility] 12-09-2022 10:21-0500 SaO2% (BldA) [Mass fraction] 99 % Zheng Sharif MD Work Phone: [facility] 12-09-2022 10:21-0500 Systolic blood pressure 116 mm[Hg] Zheng Sharif MD Work Phone: [facility] 11-15-2022 13:16-0500 Body temperature 97.81 [degF] Krislyn Aberegg PA Work Phone: [facility] 11-15-2022 13:16-0500 Body weight 96.07 kg Krislyn Aberegg PA Work Phone: [facility] 11-15-2022 13:16-0500 Diastolic blood pressure 72 mm[Hg] Krislyn Aberegg PA Work Phone: [facility] 11-15-2022 13:16-0500 Heart rate 111 /min Krislyn Aberegg PA Work Phone: [facility] 11-15-2022 13:16-0500 Respiratory rate 18 /min Krislyn Aberegg PA Work Phone: [facility] 11-15-2022 13:16-0500 Systolic blood pressure 110 mm[Hg] Krislyn Aberegg PA Work Phone: [facility] 09-16-2022 15:27-0500 Body height 162 cm Salud Scruggs APRN.BONUS CLERK Work Phone: [facility] 09-16-2022 15:27-0500 Body weight 99.52 kg Salud Scruggs APRN.BONUS CLERK Work Phone: [facility] 09-16-2022 15:27-0500 Diastolic blood pressure 80 mm[Hg] Salud Scruggs APRN.BONUS CLERK Work Phone: [facility] 09-16-2022 15:27-0500 Respiratory rate 20 /min Salud Scruggs APRN.BONUS CLERK Work Phone: [facility] 09-16-2022 15:27-0500 Systolic blood pressure 110 mm[Hg] Salud Scruggs APRN.BONUS CLERK Work Phone: [facility] 09-14-2022 15:40-0500 Body height 162.6 cm Zheng Sharif MD Work Phone: [facility] 09-14-2022 15:40-0500 Body temperature 99.81 [degF] Zheng Sharif MD Work Phone: [facility] 09-14-2022 15:40-0500 Body weight 97.98 kg Zheng Sharif MD Work Phone: [facility] 09-14-2022 15:40-0500 Diastolic blood pressure 72 mm[Hg] Zheng Sharif MD Work Phone: [facility] 09-14-2022 15:40-0500 Heart rate 68 /min Zheng Sharif MD Work Phone: [facility] 09-14-2022 15:40-0500 Respiratory rate 14 /min Zheng Sharif MD Work Phone: [facility] 09-14-2022 15:40-0500 SaO2% (BldA) [Mass fraction] 98 % Zheng Sharif MD Work Phone: [facility] 09-14-2022 15:40-0500 Systolic blood pressure 120 mm[Hg] Zheng Sharif MD Work Phone: [facility] 09-08-2022 09:17-0500 Heart rate 82 /min Almita [place] DEBEAKER.BONUS CLERK Work Phone: [facility] 09-08-2022 09:17-0500 Respiratory rate 16 /min Almita [place] DEBEAKER.BONUS CLERK Work Phone: [facility] 09-08-2022 09:17-0500 SaO2% (BldA) [Mass fraction] 99 % Almita Sebastián DEBEAKER.BONUS CLERK Work Phone: [facility] 07-12-2022 15:58-0400 Body height 162.6 cm Zheng Sharif MD Work Phone: [facility] 07-12-2022 15:58-0400 Body temperature 99.39 [degF] Zheng Sharif MD Work Phone: [facility] 07-12-2022 15:58-0400 Body weight 96.16 kg Zheng Sharif MD Work Phone: [facility] 07-12-2022 15:58-0400 Diastolic blood pressure 60 mm[Hg] Zheng Sharif MD Work Phone: [facility] 07-12-2022 15:58-0400 Heart rate 101 /min Zheng Sharif MD Work Phone: [facility] 07-12-2022 15:58-0400 Respiratory rate 12 /min Zheng Sharif MD Work Phone: [facility] 07-12-2022 15:58-0400 SaO2% (BldA) [Mass fraction] 99 % Zheng Sharif MD Work Phone: [facility] 07-12-2022 15:58-0400 Systolic blood pressure 116 mm[Hg] Zheng Sharif MD Work Phone: [facility] Encounters Encounter Date Encounter Type Care Provider Facility Start: 06-17-2024 End: 06-17-2024 Documentation procedure Mammography Coordinator [facility] Department Start: 06-17-2024 End: 06-17-2024 Letter encounter Mammography Coordinator [facility] Start: 06-14-2024 End: 06-14-2024 ambulatory [facility] Facility:[facility] Start: 06-14-2024 End: 06-14-2024 Subsequent hospital visit by physician Screen Mammo [facility] Comment on above: Encounter for screen ing mammogram for breast cancer [Z12.31] Start: 06-05-2024 End: 06-10-2024 ambulatory Zheng Sharif MD Work Phone: Internal Medicine [facility] Start: 04-09-2024 End: 04-09-2024 ambulatory CONSTANTINO GONZALEZ OB/Gynecology Start: 04-09-2024 End: 04-09-2024 Patient encounter procedure [employer] Extension Worker [facility] OB/Gynecology Start: 04-05-2024 Telephone encounter Constantino medina MD Work Phone: OB/Gynecology Comment on above: Results Start: 04-02-2024 End: 04-02-2024 ambulatory [facility] SHARIF Facility:[facility] Start: 04-02-2024 End: 04-02-2024 Patient encounter procedure Constantino Gonzalez MD Work Phone: OB/Gynecology Comment on above: Pelvic pain (Primary Dx); Other fatigue; Female infertility Start: 02-17-2024 End: 02-17-2024 Emergency department patient visit MARY STEPHENS DO Facility: Start: 02-14-2024 End: 02-14-2024 ambulatory [facility] Facility:[facility] Start: 02-14-2024 End: 02-14-2024 Patient encounter procedure William Joseph MD Work Phone: [facility] Comment on above: Exudative tonsilliti s (Primary Dx) Start: 12-29-2023 End: 12-29-2023 [facility] Facility:[facility] Start: 12-22-2023 Telephone encounter Linda agrawal MD Work Phone: OB/Gynecology Comment on above: Results Start: 12-21-2023 End: 12-21-2023 [facility] Facility:[facility] Start: 12-21-2023 End: 12-21-2023 Patient encounter procedure Constantino Gonzalez MD Work Phone: OB/Gynecology Comment on above: Hx of ectopic pregna ncy (Primary Dx) Start: 12-15-2023 End: 12-15-2023 [facility] Facility:[facility] Start: 12-08-2023 End: 12-08-2023 [facility] Facility:[facility] Start: 12-01-2023 Telephone encounter Linda agrawal MD Work Phone: OB/Gynecology Start: 11-30-2023 End: 11-30-2023 [facility] Facility:[facility] Start: 11-27-2023 Encounter for antibo dy response examination [facility] Start: 11-27-2023 End: 11-27-2023 ambulatory [facility] Facility:[facility] Start: 11-27-2023 End: 11-27-2023 Patient encounter procedure Aaliyah Perez APRN.CNP Work Phone: Internal Medicine [place] Comment on above: Wellness examination (Primary Dx); Encounter for immunization; Immunity status testing Start: 11-27-2023 End: 11-27-2023 Patient encounter status Aaliyah Perez DEBEAKER.BONUS CLERK Work Phone: [facility] Work Phone: Start: 11-23-2023 End: 11-23-2023 ambulatory [facility] Start: 11-23-2023 End: 11-23-2023 Patient encounter procedure Extension Worker [facility] Work Phone: OB/Gynecology Comment on above: with uncer tain dates in first trimester Right tubal pregnanc y without intrauterine (Primary Dx); Right tubal , unspecified whether intrauterine present Start: 11-20-2023 End: 11-20-2023 ambulatory [facility] Facility:[facility] Start: 11-15-2023 End: 11-15-2023 ambulatory [facility] Facility:[facility] Start: 11-07-2023 End: 11-07-2023 ambulatory AALIYAH Charlton CHRIS Facility:[facility] Start: 10-31-2023 End: 10-31-2023 ambulatory AALIYAH PEREZ Facility:[facility] Start: 10-06-2023 End: 10-06-2023 ambulatory AALIYAH Charlton CHRIS Facility:[facility] Start: 09-08-2023 End: 09-08-2023 ambulatory AALIYAH PEREZ Facility:[facility] Start: 09-08-2023 End: 09-08-2023 Patient encounter procedure Aaliyah Pineda DEBEAKER.BONUS CLERK Work Phone: [facility] Comment on above: Dizziness (Primary D x); Missed period Start: 07-03-2023 Refill Salud ACOSTA RN.BONUS CLERK Work Phone: OB/Gynecology Comment on above: Refill Request Start: 04-13-2023 Refill Meredith lee DEBEAKER.BONUS CLERK Work Phone: Psychiatry Comment on above: Refill Request Start: 01-11-2023 End: 01-11-2023 Subsequent hospital visit by physician [facility] Start: 12-09-2022 End: 12-09-2022 Patient encounter procedure Zheng Sharif MD Work Phone: Internal [facility] Comment on above: Annual physical exam (Primary Dx); Mass of right breast, unspecified quadrant Start: 11-15-2022 End: 11-15-2022 Patient encounter procedure Lopez DEAN Work Phone: [facility] Comment on above: Missed menses (Prima ry Dx); Fatigue, unspecified type; Nausea Start: 10-12-2022 Telephone encounter Almita torres APRN.BONUS CLERK Work Phone: [facility] Comment on above: Appointment Start: 09-23-2022 Telephone encounter June Pineda APRN.BONUS CLERK Work Phone: [facility] Comment on above: Results Start: 09-16-2022 End: 09-16-2022 Patient encounter procedure Salud Scruggs APRN.BONUS CLERK Work Phone: OB/Gynecology Comment on above: Encounter for gyneco logical examination (general) (routine) without abnormal findings (Primary Dx); General counseling and advice for contraceptive management; Screening for cervical cancer; Encounter for screening for human papillomavirus (HPV) Start: 09-16-2022 End: 09-16-2022 Patient encounter status Salud Scruggs APRN.BONUS CLERK Work Phone: OB/Gynecology Start: 09-14-2022 End: 09-14-2022 Patient encounter procedure Zheng Sharif MD Work Phone: [facility] [place] Comment on above: Annual physical exam (Primary Dx); Encounter for gynecological examination without abnormal finding; Special screening examination for viral disease; Excessive weight gain; Mood disorder (HCC) Start: 09-14-2022 End: 09-14-2022 Patient encounter status Zheng Sharif MD Work Phone: [facility] [place] Start: 09-14-2022 Chart abstracting Taylor InmanW Work Phone: Adult Psychology Comment on above: Behavioral Health So cial Work Start: 09-14-2022 Telephone encounter Zheng berg MD Work Phone: Family [facility] [place] Comment on above: Appointment Start: 09-08-2022 Telephone encounter Hilario Gregory MD Work Phone: [facility] Comment on above: Patient Update (Inte rnal referral ) Start: 09-08-2022 End: 09-08-2022 ambulatory ALMITA Latesha LOWERY Facility:[facility] Start: 09-08-2022 End: 09-08-2022 Patient encounter procedure Almita Lowery DEBEAKER.BONUS CLERK Work Phone: [facility] Comment on above: Chronic bilateral lo w back pain with bilateral sciatica (Primary Dx); Other disturbances of skin sensation; Neck pain Start: 07-12-2022 End: 07-12-2022 Subsequent hospital visit by physician Xr [facility] Work Phone: Radiology Comment on above: Chronic bilateral lo w back pain with bilateral sciatica [M54.42, M54.41, G89.29] Start: 07-12-2022 End: 07-12-2022 Patient encounter procedure Zheng Sharif MD Work Phone: Internal Medicine [facility] Comment on above: Chronic bilateral lo w back pain with bilateral sciatica (Primary Dx); Class 2 severe obesity with serious comorbidity and body mass index (BMI) of 36.0 to 36.9 in adult, unspecified obesity type (HCC) Start: 07-06-2022 Refill June Pineda DEBEAKER .BONUS CLERK Work Phone: [facility] Comment on above: Refill Request Start: 04-04-2022 Refill Americo MANZANO.BONUS CLERK Work Phone: [facility] Comment on above: Refill Request Start: 02-14-2022 ambulatory Americo GOVEAN.BONUS CLERK Work Phone: [facility] Comment on above: Panic attack questio n Start: 09-08-2021 End: 09-08-2021 Patient encounter procedure AALIYAH PINEDA BONUS CLERK [facility] Procedures Date Procedure Procedure Detail Performing Clinician Start: 04-09-2024 Us pelvic nonobstetr ic real-time image complete Constantino Gonzalez MD Work Phone: Start: 02-14-2024 STREP A MOLECULAR (POC) William Joseph MD Work Phone: Start: 11-23-2023 Antibody screen ZHENG SHARIF Comment on above: Order Comment: Speci men Type: BLOOD SPECIMEN Ordering Facility: [facility] Address: [address] [place] [address] Performed By: #### 2 [id number] #### [facility] CLIA [id number] [address] [place] [address] [place] [address] [place] Start: 11-23-2023 Follow-up visit Follow Up LINDA JAVED BLANTONMELLISA Start: 11-23-2023 Us preg uterus after 1st trimest 10/23 gestation Rani Yen APRN.BONUS CLERK Work Phone: Start: 01-11-2023 Digital breast tomos ynthesis unilateral Zheng Sharif MD Work Phone: Start: 11-15-2022 Urine test visual color cmprsn meths Krislyn P Aberegg PA Work Phone: Start: 07-12-2022 Radex spine lumbosac ral 2/3 views Zheng Sharif MD Work Phone: Start: 01-05-2022 Adult depression scr eening assessment Americo Landa APRN.BONUS CLERK Work Phone: Cholecystectomy AALIYAH OLDER CN P Plan of Treatment Date Care Activity Detail Author Start: 11-27-2033 Urine microalbumin profile DTaP,Tdap,Td Vaccine (2 - Td or Tdap) [facility] Start: 09-16-2025 HPV TESTING HPV TESTING [facility] Start: 09-16-2025 PAP TESTING PAP TESTING [facility] Start: 09-16-2025 Screening for malign ant neoplasm of cervix [facility] Start: 06-14-2025 Screening for malign ant neoplasm of breast Mammogram Screening [facility] Start: 11-27-2024 Covid-19 Vaccine (2 - Amy risk series) Covid-19 Vaccine (2 - Amy risk series) [facility] Comment on above: Postponed from 07/27 (Declined at this time) Start: 08-16-2024 End: 08-16-2024 Patient encounter procedure 08/16/2024 10:15 AM EDT Office Visit [facility] [address] [place] [address] Renee Foster MD [address] [place] [address] Female infertility [N97.9] [facility] Comment on above: Female infertility [ N97.9] Start: 06-23-2024 Influenza vaccination [facility] Start: 06-18-2024 End: 06-18-2024 Patient encounter procedure 06/18/2024 2:00 PM EDT Office Visit [facility] [address] [place] [address] Renee Foster MD [address] [place] [address] Female infertility [N97.9] [facility] Comment on above: Female infertility [ N97.9] Start: 06-14-2024 End: 06-14-2024 Patient encounter procedure 06/14/2024 9:30 AM EDT Appointment Mammogram [address] [place] [address] Mammogram Start: 2024 Screening for malign ant neoplasm of breast Mammogram Screening [facility] Start: 04-21-2024 Influenza vaccination Influenza Vacc ine (#1) [facility] Comment on above: Postponed from 06/23 (Declined at this time) Start: 04-09-2024 End: 04-09-2024 Manual pelvic examination 04/09/2024 8:30 AM EDT Procedure OB/Gynecology [address] [place] [address] Pelvic pain [R10.2] OB/Gynecology Comment on above: Pelvic pain [R10.2] Start: 04-02-2024 End: 06-11-2025 US Pelvis PELVIC US [facility] Anc Imaging Routine Pelvic pain Expected: 04/02/2024, Expires: 04/02/2025 [facility] Work Phone: Comment on above: Expected: 04/02/2024 , Expires: 04/02/2025 Start: 12-28-2023 End: 03-28-2024 Choriogonadotropin.beta subunit [Units/volume] in Serum or Plasma HCG QUANTITATIVE Lab Routine Hx of ectopic Right tubal without intrauterine Expected: 12/28/2023, Expires: 03/28/2024 [facility] Work Phone: Comment on above: Expected: 12/28/2023 , Expires: 03/28/2024 Start: 11-27-2023 End: 02-26-2024 MUMPS IGG AB [facility] Work Phone: Comment on above: Expected: 11/27/2023 , Expires: 02/26/2024 Start: 11-27-2023 End: 02-26-2024 RUBELLA IGG AB [facility] Work Phone: Comment on above: Expected: 11/27/2023 , Expires: 02/26/2024 Start: 11-27-2023 End: 02-26-2024 RUBEOLA (MEASLES)IGG [facility] Work Phone: Comment on above: Expected: 11/27/2023 , Expires: 02/26/2024 Start: 10-23-2023 Behavioral Health Screening Behavioral Health Screening [facility] Start: 10-23-2023 Depression Assessment Depression Ass essment [facility] Start: 09-08-2023 End: 12-08-2023 CBC W Auto Differential panel - Blood [facility] Work Phone: Comment on above: Expected: 09/08/2023 , Expires: 12/08/2023 Start: 09-08-2023 End: 12-08-2023 Choriogonadotropin.beta subunit [Units/volume] in Serum or Plasma [facility] Work Phone: Comment on above: Expected: 09/08/2023 , Expires: 12/08/2023 Start: 09-08-2023 End: 12-08-2023 Comprehensive metabolic 2000 panel - Serum or Plasma [facility] Work Phone: Comment on above: Expected: 09/08/2023 , Expires: 12/08/2023 Start: 06-23-2023 Covid-19 Vaccine ( season) Covid-19 Vaccine () [facility] Start: 06-23-2023 Influenza vaccination [facility] Start: 04-21-2023 Influenza vaccination INFLUENZA (#1) [facility] Comment on above: Postponed from 06/23 (Declined at this time) Start: 01-05-2023 Adult depression screening assessment DEPRESSION SCREENING [facility] Start: 10-23-2022 DEPRESSION ASSESSMENT DEPRESSION ASS ESSMENT [facility] Start: 09-14-2022 End: 11-14-2022 CBC W Auto Differential panel - Blood CBC + DIFF Lab Routine Annual physical exam Expected: 09/14/2022, Expires: 11/14/2022 [facility] Work Phone: Comment on above: Expected: 09/14/2022 , Expires: 11/14/2022 Start: 09-14-2022 End: 11-14-2022 Comprehensive metabolic 2000 panel - Serum or Plasma COMP METABOLIC PANEL Lab Routine Annual physical exam Expected: 09/14/2022, Expires: 11/14/2022 [facility] Work Phone: Comment on above: Expected: 09/14/2022 , Expires: 11/14/2022 Start: 09-14-2022 End: 11-14-2022 Hepatitis C virus Ab [Presence] in Serum HEP C AB IA W/CONF SCRN Lab Routine Special screening examination for viral disease Expected: 09/14/2022, Expires: 11/14/2022 [facility] Work Phone: Comment on above: Expected: 09/14/2022 , Expires: 11/14/2022 Start: 09-14-2022 End: 11-14-2022 Lipid 1996 panel - Serum or Plasma LIPID PANEL BASIC Lab Routine Annual physical exam Expected: 09/14/2022, Expires: 11/14/2022 [facility] Work Phone: Comment on above: Expected: 09/14/2022 , Expires: 11/14/2022 Start: 09-14-2022 End: 11-14-2022 Thyrotropin [Units/volume] in Serum or Plasma TSH BLD Lab Routine Excessive weight gain Expected: 09/14/2022, Expires: 11/14/2022 [facility] Work Phone: Comment on above: Expected: 09/14/2022 , Expires: 11/14/2022 Start: 06-23-2022 Influenza vaccination [facility] Start: 10-23-2021 DEPRESSION ASSESSMENT DEPRESSION ASS ESSMENT [facility] Start: 08-24-2021 COVID-19 VACCINE (2 - Booster for Amy series) COVID-19 VACCINE (2 - Booster for Amy series) [facility] Start: 07-27-2021 Covid-19 Vaccine (2 - Amy risk series) Covid-19 Vaccine (2 - Amy risk series) [facility] Start: 2014 HPV TESTING HPV TESTING [facility] Start: 2005 PAP TESTING PAP TESTING [facility] Start: 2003 Hepatitis B Vaccine (1 of 3 - 19+ 3-dose series) Hepatitis B Vaccine (1 of 3 - 19+ 3-dose series) [facility] Start: 2003 Shingrix Vaccine (1 of 2) Shingrix Vaccine (1 of 2) [facility] Start: 2003 Urine microalbumin profile [facility] Start: 2002 Depression Screening Depression Scre ening [facility] Start: 2002 HEPATITIS C SCREENING HEPATITIS C SC REENING [facility] Start: 1990 Pneumococcal vaccination Pneumococcal Vaccine (1 of 2 - PCV) [facility] Start: 1984 HEPATITIS B (1 of 3 - 3-dose series) HEPATITIS B (1 of 3 - 3-dose series) [facility] Start: 1984 Hepatitis B Vaccine (1 of 3 - 3-dose series) Hepatitis B Vaccine (1 of 3 - 3-dose series) [facility] End: 11-22-2024 Choriogonadotropin.beta subunit [Units/volume] in Serum or Plasma HCG QUANTITATIVE Lab STAT Right tubal without intrauterine Right tubal , unspecified whether intrauterine present 3x per week for 3 Occurrences starting 11/23/2023 until 11/22/2024 [facility] Work Phone: Comment on above: 3x per week for 3 Oc currences starting 11/23/2023 until 11/22/2024 End: 07-05-2025 DBT Breast - bilateral screening PRIYANKA SCREENING W BERTA Radiology Routine Encounter for screening mammogram for breast cancer 1 Occurrences starting 06/05/2024 until 07/05/2025 [facility] Work Phone: Comment on above: 1 Occurrences starti ng 06/05/2024 until 07/05/2025 DBT Breast - bilater al screening PRIYANKA SCREENING W BERTA Radiology Routine Encounter for screening mammogram for breast cancer 06/14/2024 9:55 AM EDT [facility] Work Phone: End: 01-08-2024 Diagnostic mammography computer-aided detcj bi PRIYANKA DIAGNOSTIC BILAT Radiology Routine Mass of right breast, unspecified quadrant 1 Occurrences starting 12/09/2022 until 01/08/2024 [facility] Work Phone: Comment on above: 1 Occurrences starti ng 12/09/2022 until 01/08/2024 PAP FLUID CERVICAL SCREENING PAP FLUID CERVICAL SCREENING Lab Routine Encounter for gynecological examination (general) (routine) without abnormal findings Screening for cervical cancer Encounter for screening for human papillomavirus (HPV) 09/16/2022 4:17 PM EST [facility] Work Phone: End: 10-08-2023 Radex spine cervical 6 or more views XR CERV OTHER 6V AP/LAT/FLX/EXT/OBL Radiology Routine Neck pain 1 Occurrences starting 09/08/2022 until 10/08/2023 [facility] Work Phone: Comment on above: 1 Occurrences starti ng 09/08/2022 until 10/08/2023 End: 01-08-2024 Us breast uni real time with image limited US BREAST LTD RT Radiology Routine Mass of right breast, unspecified quadrant 1 Occurrences starting 12/09/2022 until 01/08/2024 [facility] Work Phone: Comment on above: 1 Occurrences starti ng 12/09/2022 until 01[facility]08/2024 [facility] Immunizations Immunization Date Immunization Notes Care Provider Annette mariee 11-27-2023 tetanus toxoid, reduced diphtheria toxoid, and acellular pertussis vaccine, adsorbed Aaliyah Chris DEBEAKER.BONUS CLERK Work Phone: [facility] 06-29-2021 COVID-19 vaccine (AMY) Americo Landa DEBEAKER.BONUS CLERK Work Phone: [facility] Work Phone: Payers Date Payer Category Payer Medicaid [place] [employer] [employer] [id number] 2020-Present [phone] [place] [id number] Medicaid [id number] 2020 Medicaid [id number] 2020 Medicaid [id number] 1985 Unknown [id number] Social History Date Type Detail Facility Start: 11-28-2017 End: 07-12-2022 Never smoked tobacco (finding) [facility] Sex Assigned At [facility] Start: 11-28-2017 End: 07-12-2022 Tobacco use and exposure Smokeless tobacco non-user [facility] Work Phone: Start: 01-05-2022 End: 07-12-2022 Alcohol intake Current non-drinker of alcohol (finding) [facility] Start: 04-28-2021 End: 09-12-2022 History SDOH Alcohol Frequency 2 [facility] Start: 04-28-2021 End: 09-12-2022 History SDOH Alcohol Std Drinks 1 [facility] Start: 04-28-2021 End: 09-12-2022 History SDOH Social Connections Phone 5 [facility] Start: 04-28-2021 History SDOH Social Connections Get Together 4 [facility] Start: 04-28-2021 End: 09-12-2022 History SDOH Social Connections Living 6 [facility] Start: 04-28-2021 History SDOH Physica l Activity MPS 15 [facility] Start: 04-28-2021 Education 12 [facility] Start: 1985 Sex Assigned At Not on file [facility] Start: 07-02-2022 End: 09-14-2022 Exposure to SARS-CoV-2 (event) Not sure [facility] Work Phone: Start: 09-12-2022 History SDOH Alcohol Std Drinks 0 [facility] Start: 09-12-2022 History SDOH Social Connections Uatsdin 98 [facility] Start: 09-12-2022 History SDOH Physica l Activity DPW 3 [facility] Start: 11-03-2022 Tobacco Comment vapes daily [facility] Start: 03-16-2022 End: 09-12-2022 History of Social function [facility] Start: 03-16-2022 End: 09-12-2022 Social connection and isolation panel [facility] How often do you att end mormon or amish services? Patient refused [facility] Do you belong to any clubs or organizations such as mormon groups, unions, fraternal or athletic groups, or school groups? No [facility] Are you now , , , , never or living with a partner? [facility] How often to you hav e a drink containing alcohol? Monthly or less [facility] How often do you hav e 6 or more drinks on 1 occasion? Never [facility] Do you feel stress - tense, restless, nervous, or anxious, or unable to sleep at night because your mind is troubled all the time - these days [OSQ] Only a little [facility] (I/We) worried wheth er (my/our) food would run out before (I/we) got money to buy more. DK or Refused [facility] Start: 08-17-2021 Gender identity Identifies as female gender (finding) [facility] Start: 11-20-2023 Tobacco smoking stat us NHIS Ex-smoker [facility] History of tobacco use Current smoker [facility] How hard is it for y ou to pay for the very basics like food, housing, medical care, and heating Not very hard [facility] Do you feel stress - tense, restless, nervous, or anxious, or unable to sleep at night because your mind is troubled all the time - these days [OSQ] Not at all [facility] (I/We) worried wheth er (my/our) food would run out before (I/we) got money to buy more. Never true [facility] Start: 11-20-2023 Tobacco Comment Was vaping hav e already quit [facility] Start: 10-23-2023 [facility] How many standard dr inks containing alcohol do you have on a typical day? 1 or 2 [facility] Do you feel stress - tense, restless, nervous, or anxious, or unable to sleep at night because your mind is troubled all the time - these days [OSQ] Rather much [facility] NEGATED: Highlighted rowStart: NINF History of tobacco use Passive smoker [facility] Clinical Notes 04-04-2022 to 06-14-2024 Yobani Herrera Mammo Tech - 06/14/2024 9:30 AM Rachel Owens MD - 04/09/2024 3:03 PM EDTTelephone Encounter - Carmen Angelo RN - 04/05/2024 2:46 PM EDTPatient Instructions Note Date & Type Note Facility 06-14-2024 History of Presen t illness Narrative Radiology Service Progress Note PATIENT NAME: Michelle Henderson DATE OF SERVICE: June 14, 2024 TIME: 9:56 AM PATIENT IDENTITY VERIFICATION COMPLETED USING TWO (2) IDENTIFIERS: Name and Date of confirmed by patient verbally. FALL SCREENING: Has the patient had 2 falls in the last year or 1 fall with injury or currently using an Ambulatory Assistive Device (Walker, Cane, Wheelchair, Crutches, etc.)? No PATIENT GENDER DATA: Female. status: : No status: NO. PATIENT RELEVANT IMPLANT DATA REVIEWED: Not Applicable PATIENT PRESENTS WITH AN IMPLANTABLE OR ATTACHED MORTGAGE PROTECTION SPECIALIST: No RADIOLOGY DEPARTMENT: Mammography PERIPHERAL IV DATA: Not applicable SIGNED BY: Lalo Bautista June 14, 2024 9:56 AM documented in this encounter [facility] 06-14-2024 Note HNO ID: [id number] Author: YOBANI HERRERA Mammo Tech Service: ? Author Type: Band Sawing Machine Operator Type: Progress Notes Filed: 06/14/2024 09:56 Note Text: Radiology Service Progress Note PATIENT NAME: Michelle Koch Beatriz DATE OF SERVICE: June 14, 2024 TIME: 9:56 AM PATIENT IDENTITY VERIFICATION COMPLETED USING TWO (2) IDENTIFIERS: Name and Date of confirmed by patient verbally. FALL SCREENING: Has the patient had 2 falls in the last year or 1 fall with injury or currently using an Ambulatory Assistive Device (Walker, Cane, Wheelchair, Crutches, etc.)? No PATIENT GENDER DATA: Female. status: : No status: NO. PATIENT RELEVANT IMPLANT DATA REVIEWED: Not Applicable PATIENT PRESENTS WITH AN IMPLANTABLE OR ATTACHED MORTGAGE PROTECTION SPECIALIST: No RADIOLOGY DEPARTMENT: Mammography PERIPHERAL IV DATA: Not applicable SIGNED BY: Lalo Bautista June 14, 2024 9:56 AM [facility] 06-05-2024 Note Patient Outreach (IN TMMN) MICHELLE HENDERSON ([id number]) 1985 F Date Time Provider Department 06/05/24 ZHENG SHARIF During your visit today, we recorded the following information about you: Allergies As of Date: 06/05/2024 (No Known Allergies) Date Reviewed: 04/02/2024 Reviewed by: Constantino Gonzalez MD - Fully Assessed Visit Diagnosis:Encounter for screening mammogram for breast cancer [Z12.31] Order(s):PRIYANKA SCREENING W BERTA [[id number]] Order #: [id number] FUTURE Prescriptions as of 06/10/2024 - PNV no.95/ferrous fum/folic ac ( ORAL) Take by mouth. Problem List As Of Date 06/05/2024 Noted Resolved Bipolar 2 disorder (HCC) [F31.81] 11/03/2022 STORMY (generalized anxiety disorder) [F41.1] 11/03/2022 Encounter Status:Closed by [employer], PRODUSER on 06/10/24 [facility] 04-09-2024 Note HNO ID: [id number] Author: RACHEL ROLAND MD Service: ? Author Type: Physician Type: Progress Notes Filed: 04/09/2024 15:10 Note Text: The patient presents for requested ultrasound. Full report available in the Imaging tab in [employer]. Rachel Roland MD [facility] 04-09-2024 History of Presen t illness Narrative The patient presents for requested ultrasound. Full report available in the Imaging tab in [employer]. Rachel Roland MD documented in this encounter [facility] 04-05-2024 Telephone encounter Note Patient notified of results, verbalizes understanding of instructions. Carmen Angelo RN [facility] 04-05-2024 Miscellaneous Notes Patient notified of results, verbalizes understanding of instructions. Carmen Angelo RN Left message to call office. Carmen Angelo RN ----- Message from Constantino Gonzalez MD sent at 04/05/2024 1:53 PM EDT ----- Labs normal Vitamin D is low normal so supplementations with 600IU daily would be reasonable Constantino Gonzalez MD documented in this encounter [facility] 04-05-2024 Telephone encounter Note Left message to call office. Carmen Angelo RN [facility] 04-05-2024 Telephone encounter Note ----- Message from Constantino Gonzalez MD sent at 04/05/2024 1:53 PM EDT ----- Labs normal Vitamin D is low normal so supplementations with 600IU daily would be reasonable Constantino Gonzalez MD [facility] 04-02-2024 Note HNO ID: [id number] Author: CONSTANTINO GONZALEZ MD Service: ? Author Type: Physician Type: Progress Notes Filed: 04/02/2024 15:29 Note Text: Michelle Henderson is a 38 year old female who presents for problem visit. HPI: Patient presents as menses have changed. Menses is now liquid flavor compounder but still last 5 days. Also they used to be about 30 days apart and now but are still at least 24 days apart. She reports some bilateral pelvic pain over the past 1-2 months. Patient also reports fatigue. She is interested in and wonders how long it will take. 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 History LMP: 03/25/2024, Having periods Age at Menarche: Age at First : Age at Menopause: Management Scientist History Comments: Sexual Activity: Yes; Male Contraception: No contraception data on record PAST MEDICAL HISTORY Diagnosis Date Gastroparesis Liver disease NEGATIVE MEDICAL HISTORY PAST SURGICAL HISTORY Procedure Laterality Date BREAST BIOPSY NEEDLE RIGHT Right 09/17/2021 CHOLECYSTECTOMY HX 2015 FAMILY HISTORY Problem Relation Age of Onset other (MVP, IBS) Mother No Known Problems Father no relationship Cancer Sister cervical Depression Brother Social History Tobacco Use Smoking status: Former Passive exposure: Never Smokeless tobacco: Never Tobacco comments: Was vaping have already quit Vaping Use Vaping Use: Former Substances: Nicotine, Flavoring Devices: Disposable Substance Use Topics Alcohol use: No Drug use: No Current Outpatient Medications Medication Sig PNV no.95/ferrous fum/folic ac ( ORAL) Take by mouth. No current facility-administered medications for this visit. Allergies As of Date: 04/02/2024 (No Known Allergies) Fully Assessed 04/02/2024 Allergies and current medication updated:Yes EXAM: BP 120/80 Wt 202 lb 3.2 oz (91.7kg) LMP 03/25/2024 GENERAL: pleasant, female in no apparent distress ASSESSMENT AND PLAN: 38yo female with pelvic pain, fatigue AND infertility Check pelvis US Labs ordered Discussed option of referral to [facility] if desired - consult placed Medical Decision Making: Problems: Moderate: New problem with uncertain prognosis Data: Unique test(s) ordered: 3+ Risk: Low: Low risk from testing/treatment Medical Decision Making Level: 4 - Moderate Constantino Gonzalez MD [facility] 04-02-2024 History of Presen t illness Narrative Michelle Henderson is a 38 year old female who presents for problem visit. HPI: Patient presents as menses have changed. Menses is now liquid flavor compounder but still last 5 days. Also they used to be about 30 days apart and now but are still at least 24 days apart. She reports some bilateral pelvic pain over the past 1-2 months. Patient also reports fatigue. She is interested in and wonders how long it will take. 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 History LMP: 03/25/2024, Having periods Age at Menarche: Age at First : Age at Menopause: Management Scientist History Comments: Sexual Activity: Yes; Male Contraception: No contraception data on record PAST MEDICAL HISTORY Diagnosis Date Gastroparesis Liver disease NEGATIVE MEDICAL HISTORY PAST SURGICAL HISTORY Procedure Laterality Date BREAST BIOPSY NEEDLE RIGHT Right 09/17/2021 CHOLECYSTECTOMY HX 2015 FAMILY HISTORY Problem Relation Age of Onset other (MVP, IBS) Mother No Known Problems Father no relationship Cancer Sister cervical Depression Brother Social History Tobacco Use Smoking status: Former Passive exposure: Never Smokeless tobacco: Never Tobacco comments: Was vaping have already quit Vaping Use Vaping Use: Former Substances: Nicotine, Flavoring Devices: Disposable Substance Use Topics Alcohol use: No Drug use: No Current Outpatient Medications Medication Sig PNV no.95/ferrous fum/folic ac ( ORAL) Take by mouth. No current facility-administered medications for this visit. Allergies As of Date: 04/02/2024 (No Known Allergies) Fully Assessed 04/02/2024 Allergies and current medication updated:Yes EXAM: BP 120/80 Wt 202 lb 3.2 oz (91.7kg) LMP 03/25/2024 GENERAL: pleasant, female in no apparent distress ASSESSMENT AND PLAN: 38yo female with pelvic pain, fatigue & infertility Check pelvis US Labs ordered Discussed option of referral to [facility] if desired - consult placed Medical Decision Making: Problems: Moderate: New problem with uncertain prognosis Data: Unique test(s) ordered: 3+ Risk: Low: Low risk from testing/treatment Medical Decision Making Level: 4 - Moderate Constantino Gonzalez MD documented in this encounter [facility] 02-14-2024 Note HNO ID: [id number] Author: WILLIAM JOSEPH MD Service: ? 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 MEDICATIONS: No current outpatient medications on file. No current facility-administered medications for this visit. ALLERGIES: ALLERGIES No Known Allergies VITALS: BP 120/77 Pulse (!) 59 Temp 36.5 ?C (97.7 ?F) Resp 18 Wt 92.6 kg (204 lb 2.3 oz) LMP 10/09/2023 SpO2 100% BMI 35.95 kg/m? PHYSICAL EXAM: GEN: Pleasant, in no acute distress. HEENT: PERRL, EOMI, conjunctiva clear Ears: canals clear. TMs without erythema, bulge, or effusion Sinuses: non-tender frontal sinus, non-tender maxillary sinuses Throat: moist mucous membranes, tonsillar erythema, cryptic exudate Neck: supple, no thyromegaly, mild lymphadenopathy HEART: regular rate and rhythm, no murmurs LUNGS: clear to auscultation, no wheezes or crackles, no increased WOB ASSESSMENT/PLAN: 1. Exudative tonsillitis - ICD9: 463, ICD10: J03.90 - STREP A MOLECULAR (POC) - negative - suspect viral pharyngitis - Discussed supportive care treatment with gargles and analgesia. Avoid contact with others until fever free for 24 hours. Follow up with worsening symptoms. 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 MEDICATIONS: No current outpatient medications on file. No current facility-administered medications for this visit. ALLERGIES: ALLERGIES No Known Allergies VITALS: BP 120/77 Pulse (!) 59 Temp 36.5 C (97.7 F) Resp 18 Wt 92.6 kg (204 lb 2.3 oz) LMP 10/09/2023 SpO2 100% BMI 35.95 kg/m PHYSICAL EXAM: GEN: Pleasant, in no acute distress. HEENT: PERRL, EOMI, conjunctiva clear Ears: canals clear. TMs without erythema, bulge, or effusion Sinuses: non-tender frontal sinus, non-tender maxillary sinuses Throat: moist mucous membranes, tonsillar erythema, cryptic exudate Neck: supple, no thyromegaly, mild lymphadenopathy HEART: regular rate and rhythm, no murmurs LUNGS: clear to auscultation, no wheezes or crackles, no increased WOB ASSESSMENT/PLAN: 1. Exudative tonsillitis - ICD9: 463, ICD10: J03.90 - STREP A MOLECULAR (POC) - negative - suspect viral pharyngitis - Discussed supportive care treatment with gargles and analgesia. Avoid contact with others until fever free for 24 hours. Follow up with worsening symptoms. William Joseph MD documented in this encounter [facility] 12-22-2023 Miscellaneous Notes filed Patient notified and voiced understanding of results and instructions. Please file pended order for repeat next week. Carmen Angelo RN ----- Message from Linda Sloan MD sent at 12/21/2023 5:03 PM EST ----- HCG quant continues to down trend. Repeat 1 week until negative documented in this encounter [facility] 12-21-2023 Note HNO ID: [id number] Author: CONSTANTINO GONZALEZ MD Service: ? Author Type: Physician Type: Progress Notes Filed: 12/21/2023 11:26 Note Text: Michelle Henderson is a 38 year old female who presents for problem visit. HPI: Patient presents in ectopic follow up. She denies vaginal bleeding or abdominal pain. 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 History LMP: 10/09/2023, Recent Age at Menarche: Age at First : Age at Menopause: Management Scientist History Comments: Sexual Activity: Yes; Male Contraception: No contraception data on record PAST MEDICAL HISTORY Diagnosis Date Gastroparesis Liver disease NEGATIVE MEDICAL HISTORY PAST SURGICAL HISTORY Procedure Laterality Date BREAST BIOPSY NEEDLE RIGHT Right 09/17/2021 CHOLECYSTECTOMY HX 2014 FAMILY HISTORY Problem Relation Age of Onset other (MVP, IBS) Mother No Known Problems Father no relationship Cancer Sister cervical Depression Brother Social History Tobacco Use Smoking status: Former Passive exposure: Never Smokeless tobacco: Never Tobacco comments: Was vaping have already quit Vaping Use Vaping Use: Former Substances: Nicotine, Flavoring Devices: Disposable Substance Use Topics Alcohol use: No Drug use: No No current outpatient medications on file. No current facility-administered medications for this visit. Allergies As of Date: 12/21/2023 (No Known Allergies) Fully Assessed 11/27/2023 Allergies and current medication updated:Yes EXAM: LMP 10/09/2023 GENERAL: pleasant, female in no apparent distress ASSESSMENT AND PLAN: 38yo female s/p MTX for ectopic Repeat hcg quant today and follow to zero. Discussed patient should wait 3 months before attempting . Call with an positive tests as patient at risk for further ectopic pregnancies. Medical Decision Making: Problems: Low: Acute, uncomplicated illness or injury Data: Unique test result(s) reviewed: 2 Risk: Low: Low risk from testing/treatment Medical Decision Making Level: 3 - Low Constantino Gonzalez MD [facility] 12-21-2023 History of Presen t illness Narrative Michelle Henderson is a 38 year old female who presents for problem visit. HPI: Patient presents in ectopic follow up. She denies vaginal bleeding or abdominal pain. 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 History LMP: 10/09/2023, Recent Age at Menarche: Age at First : Age at Menopause: Management Scientist History Comments: Sexual Activity: Yes; Male Contraception: No contraception data on record PAST MEDICAL HISTORY Diagnosis Date Gastroparesis Liver disease NEGATIVE MEDICAL HISTORY PAST SURGICAL HISTORY Procedure Laterality Date BREAST BIOPSY NEEDLE RIGHT Right 09/17/2021 CHOLECYSTECTOMY HX 2015 FAMILY HISTORY Problem Relation Age of Onset other (MVP, IBS) Mother No Known Problems Father no relationship Cancer Sister cervical Depression Brother Social History Tobacco Use Smoking status: Former Passive exposure: Never Smokeless tobacco: Never Tobacco comments: Was vaping have already quit Vaping Use Vaping Use: Former Substances: Nicotine, Flavoring Devices: Disposable Substance Use Topics Alcohol use: No Drug use: No No current outpatient medications on file. No current facility-administered medications for this visit. Allergies As of Date: 12/21/2023 (No Known Allergies) Fully Assessed 11/27/2023 Allergies and current medication updated:Yes EXAM: LMP 10/09/2023 GENERAL: pleasant, female in no apparent distress ASSESSMENT AND PLAN: 38yo female s/p MTX for ectopic Repeat hcg quant today and follow to zero. Discussed patient should wait 3 months before attempting . Call with an positive tests as patient at risk for further ectopic pregnancies. Medical Decision Making: Problems: Low: Acute, uncomplicated illness or injury Data: Unique test result(s) reviewed: 2 Risk: Low: Low risk from testing/treatment Medical Decision Making Level: 3 - Low Constantino Gonzalez MD documented in this encounter [facility] 12-01-2023 Miscellaneous Notes Patient notified. Paula Mosher RN Left message for patient to call office. NEENA GUILLORY RN ----- Message from Linda Sloan MD sent at 12/01/2023 8:14 AM EST ----- Notify pt HCG quant decreased by > 15% which is good. HCG quant to be drawn weekly. Other labs are ok as well. To repeat CBC and CMP next week with her HCG quant. Standing orders were already placed so should be ok documented in this encounter [facility] 11-27-2023 Note HNO ID: [id number] Author: AALIYAH PEREZ APRN.BONUS CLERK Service: ? Author Type: Nurse Practitioner Type: Progress Notes Filed: 11/27/2023 14:35 Note Text: CC: Patient presents with: Physical HPI Michelle Henderson is a 38 year old female who presents today for above. 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 Denies any other concerns today. Review of Systems Constitutional: Negative for chills, diaphoresis, fever and unexpected weight change. Eyes: Negative for visual disturbance. Respiratory: Negative for cough, shortness of breath and wheezing. Cardiovascular: Negative for chest pain, palpitations and leg swelling. Musculoskeletal: Negative for arthralgias, back pain, gait problem, joint swelling, myalgias, neck pain and neck stiffness. Neurological: Negative for dizziness, tremors, seizures, syncope, weakness, light-headedness and numbness. Psychiatric/Behavioral: Negative for confusion, dysphoric mood, hallucinations, self-injury, sleep disturbance and suicidal ideas. The patient is not nervous/anxious and is not hyperactive. PAST MEDICAL HISTORY Diagnosis Date Gastroparesis Liver disease NEGATIVE MEDICAL HISTORY PAST SURGICAL HISTORY Procedure Laterality Date BREAST BIOPSY NEEDLE RIGHT Right 09/17/2021 CHOLECYSTECTOMY HX 2015 ALLERGIES Patient has no known allergies. MEDICATIONS 25/iron fum/folic/dha (-1 ORAL) Take by mouth. (Patient not taking: Reported on 11/27/2023) FAMILY HISTORY Problem Relation Age of Onset other (MVP, IBS) Mother No Known Problems Father no relationship Cancer Sister cervical Depression Brother Social History Tobacco Use Smoking status: Former Passive exposure: Never Smokeless tobacco: Never Tobacco comments: Was vaping have already quit Vaping Use Vaping Use: Former Substances: Nicotine, Flavoring Devices: Disposable Substance Use Topics Alcohol use: No Drug use: No BP 128/68 Pulse 86 Resp 16 Ht 160.5 cm (5' 3.19 ) Wt 83.9 kg (185 lb) LMP 10/09/2023 SpO2 98% BMI 32.58 kg/m? Physical Exam Vitals reviewed. Constitutional: Appearance: Normal appearance. HENT: Mouth/Throat: Mouth: Mucous membranes are moist. Eyes: Extraocular Movements: Extraocular movements intact. Conjunctiva/sclera: Conjunctivae normal. Pupils: Pupils are equal, round, and reactive to light. Cardiovascular: Rate and Rhythm: Normal rate and regular rhythm. Pulses: Normal pulses. Heart sounds: Normal heart sounds. No murmur heard. Pulmonary: Effort: Pulmonary effort is normal. Breath sounds: Normal breath sounds. No wheezing, rhonchi or rales. Musculoskeletal: General: No tenderness. Normal range of motion. Cervical back: Normal and neck supple. Thoracic back: Normal. Lumbar back: Normal. Lymphadenopathy: Cervical: No cervical adenopathy. Skin: General: Skin is warm and dry. Neurological: General: No focal deficit present. Mental Status: She is alert and oriented to person, place, and time. Motor: Motor function is intact. Coordination: Coordination is intact. Gait: Gait is intact. Psychiatric: Attention and Perception: Attention normal. Mood and Affect: Mood and affect normal. Speech: Speech normal. Behavior: Behavior normal. Thought Content: Thought content normal. Judgment: Judgment normal. Health maintenance reviewed with patient: Hepatitis B Vaccine(1 of 3 - 3-dose series) Never done Pneumococcal Vaccine(1 of 2 - PCV) Never done DTaP,Tdap,Td Vaccine(1 - Tdap) Never done Shingrix Vaccine(1 of 2) Never done Depression Assessment due on 10/23/2023 Influenza Vaccine(1) due on 04/21/2024 Covid-19 Vaccine(2 - Amy risk series) due on 11/27/2024 RSV Vaccine(1 - Risk 1-dose series) due on 06/23/2024 Pap Testing due on 09/16/2025 HPV Testing due on 09/16/2025 Hepatitis C Screening Completed HIV Screening Completed HPV Vaccine Aged Out ASSESSMENT/PLAN: 1. Wellness examination - ICD9: V70.0, ICD10: Z00.00 (primary diagnosis) - Counseled on healthy diet and regular exercise - Calcium intake with supplements or by diet of 1000 mg/day for under 50, 8571-1913 mg/day for 50+ - Discussed need and benefit for weight loss. BMI 32.58 kg/(m2) - Depression screening tool completed and reviewed with patient. Based on score and interview, patient is not at risk for depression and recommended no further intervention at this time. - Patient was counseled [id number] by myself (the billing provider) for the following immunizations and vaccine components, including side effects: TdaP. Patient consents for immunization and understands risks and benefits. A VIS sheet on each immunization was given to the patient. - Follow up for annual exam in one year 2. Encounter for immunization - ICD9: V03.89, ICD10: Z23 - TDAP VACCINE, AG (more content not included)... [facility] 11-27-2023 History of Presen t illness Narrative CC: Patient presents with: Physical HPI Michelle Henderson is a 38 year old female who presents today for above. 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 Denies any other concerns today. Review of Systems Constitutional: Negative for chills, diaphoresis, fever and unexpected weight change. Eyes: Negative for visual disturbance. Respiratory: Negative for cough, shortness of breath and wheezing. Cardiovascular: Negative for chest pain, palpitations and leg swelling. Musculoskeletal: Negative for arthralgias, back pain, gait problem, joint swelling, myalgias, neck pain and neck stiffness. Neurological: Negative for dizziness, tremors, seizures, syncope, weakness, light-headedness and numbness. Psychiatric/Behavioral: Negative for confusion, dysphoric mood, hallucinations, self-injury, sleep disturbance and suicidal ideas. The patient is not nervous/anxious and is not hyperactive. PAST MEDICAL HISTORY Diagnosis Date Gastroparesis Liver disease NEGATIVE MEDICAL HISTORY PAST SURGICAL HISTORY Procedure Laterality Date BREAST BIOPSY NEEDLE RIGHT Right 09/17/2021 CHOLECYSTECTOMY HX 2015 ALLERGIES Patient has no known allergies. MEDICATIONS 25/iron fum/folic/dha (-1 ORAL) Take by mouth. (Patient not taking: Reported on 11/27/2023) FAMILY HISTORY Problem Relation Age of Onset other (MVP, IBS) Mother No Known Problems Father no relationship Cancer Sister cervical Depression Brother Social History Tobacco Use Smoking status: Former Passive exposure: Never Smokeless tobacco: Never Tobacco comments: Was vaping have already quit Vaping Use Vaping Use: Former Substances: Nicotine, Flavoring Devices: Disposable Substance Use Topics Alcohol use: No Drug use: No BP 128/68 Pulse 86 Resp 16 Ht 160.5 cm (5' 3.19 ) Wt 83.9 kg (185 lb) LMP 10/09/2023 SpO2 98% BMI 32.58 kg/m Physical Exam Vitals reviewed. Constitutional: Appearance: Normal appearance. HENT: Mouth/Throat: Mouth: Mucous membranes are moist. Eyes: Extraocular Movements: Extraocular movements intact. Conjunctiva/sclera: Conjunctivae normal. Pupils: Pupils are equal, round, and reactive to light. Cardiovascular: Rate and Rhythm: Normal rate and regular rhythm. Pulses: Normal pulses. Heart sounds: Normal heart sounds. No murmur heard. Pulmonary: Effort: Pulmonary effort is normal. Breath sounds: Normal breath sounds. No wheezing, rhonchi or rales. Musculoskeletal: General: No tenderness. Normal range of motion. Cervical back: Normal and neck supple. Thoracic back: Normal. Lumbar back: Normal. Lymphadenopathy: Cervical: No cervical adenopathy. Skin: General: Skin is warm and dry. Neurological: General: No focal deficit present. Mental Status: She is alert and oriented to person, place, and time. Motor: Motor function is intact. Coordination: Coordination is intact. Gait: Gait is intact. Psychiatric: Attention and Perception: Attention normal. Mood and Affect: Mood and affect normal. Speech: Speech normal. Behavior: Behavior normal. Thought Content: Thought content normal. Judgment: Judgment normal. Health maintenance reviewed with patient: Hepatitis B Vaccine(1 of 3 - 3-dose series) Never done Pneumococcal Vaccine(1 of 2 - PCV) Never done DTaP,Tdap,Td Vaccine(1 - Tdap) Never done Shingrix Vaccine(1 of 2) Never done Depression Assessment due on 10/23/2023 Influenza Vaccine(1) due on 04/21/2024 Covid-19 Vaccine(2 - Amy risk series) due on 11/27/2024 RSV Vaccine(1 - Risk 1-dose series) due on 06/23/2024 Pap Testing due on 09/16/2025 HPV Testing due on 09/16/2025 Hepatitis C Screening Completed HIV Screening Completed HPV Vaccine Aged Out ASSESSMENT/PLAN: 1. Wellness examination - ICD9: V70.0, ICD10: Z00.00 (primary diagnosis) - Counseled on healthy diet and regular exercise - Calcium intake with supplements or by diet of 1000 mg/day for under 50, 1359-1477 mg/day for 50+ - Discussed need and benefit for weight loss. BMI 32.58 kg/(m^2) - Depression screening tool completed and reviewed with patient. Based on score and interview, patient is not at risk for depression and recommended no further intervention at this time. - Patient was counseled [id number] by myself (the billing provider) for the following immunizations and vaccine components, including side effects: TdaP. Patient consents for immunization and understands risks and benefits. A VIS sheet on each immunization was given to the patient. - Follow up for annual exam in one year 2. Encounter for immunization - ICD9: V03.89, ICD10: Z23 - TDAP VACCINE, AGE 7+ YR (ADACEL, BOOSTRIX) 3. Immunity status testing - ICD9: V72.61, ICD10: Z01.84 If no immunity will need MMR - MUMPS IGG AB - RUBEOLA (MEASLES)IGG - RUBELLA IGG AB Prescription instructions reviewed with patient as applicable. Potential red flag symptoms discussed with the patient. Reviewed appropriate action plan to take if red flag symptoms occur. Patient agreeable to treatment plan. Aaliyah Perez APRN.BONUS CLERK documented in this encounter [facility] 11-23-2023 Note HNO ID: [id number] Author: CRUZITO TALBOT RN Service: ? Author Type: Registered Nurse Type: Progress Notes Filed: 11/24/2023 08:24 Note Text: . [facility] 11-23-2023 Miscellaneous Notes Addended by: LINDA SLOAN on: 11/23/2023 02:54 PM Modules accepted: Orders Addended by: KAJAL PENA on: 11/23/2023 02:53 PM Modules accepted: Orders documented in this encounter [facility] 11-23-2023 Note HNO ID: [id number] Author: LINDA SLOAN MD Service: ? Author Type: Physician Type: Progress Notes Filed: 11/23/2023 12:25 Note Text: Michelle Henderson is a 38 year old female who presents for problem visit - follow up after pelvic ultrasound. HPI: Patient presented to office today for a scheduled pelvic ultrasound. She denies pain or bleeding at this time. Saw AUDIT ASSOCIATE for NOB visit on 11/20/23 who was following HCG quants: 67 > 1,034 > 701. She has no pain but did have RLQ tenderness during the pelvic US, which has since resolved. She feels well and offers no complaints. 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 History LMP: 10/09/2023, Age at Menarche: Age at First : Age at Menopause: Management Scientist History Comments: Sexual Activity: Yes; Male Contraception: No contraception data on record PAST MEDICAL HISTORY Diagnosis Date Gastroparesis Liver disease NEGATIVE MEDICAL HISTORY PAST SURGICAL HISTORY Procedure Laterality Date BREAST BIOPSY NEEDLE RIGHT Right 09/17/2021 CHOLECYSTECTOMY HX 2014 FAMILY HISTORY Problem Relation Age of Onset other (MVP, IBS) Mother No Known Problems Father no relationship Cancer Sister cervical Depression Brother Social History Tobacco Use Smoking status: Former Passive exposure: Never Smokeless tobacco: Never Tobacco comments: Was vaping have already quit Vaping Use Vaping Use: Former Substances: Nicotine, Flavoring Devices: Disposable Substance Use Topics Alcohol use: No Drug use: No Current Outpatient Medications Medication Sig 25/iron fum/folic/dha (-1 ORAL) Take by mouth. No current facility-administered medications for this visit. Allergies As of Date: 11/23/2023 (No Known Allergies) Fully Assessed 11/23/2023 REVIEW OF SYSTEMS Abdomen: No pain, N/V. Expanded ROS: No lightheadedness, dizziness. Allergies and current medication updated:Yes EXAM: BP 108/66 Wt 183 lb 12.8 oz (83.4kg) LMP 10/09/2023 GENERAL: pleasant, female in no apparent distress HEENT: Normocephalic and atraumatic NECK: full range of motion DERMATOLOGY: Normal and without lesions CHEST: Normal inspiratory effort ABDOMEN: soft, non-tender, and no masses, non acute NEURO: exam grossly non-focal EXTREMITIES: normal ASSESSMENT AND PLAN: Encounter Diagnosis ICD-10-CM 1. Right tubal without intrauterine O00.101 CBC + DIFF COMP METABOLIC PANEL TYPE + SCREEN HCG QUANTITATIVE CANCELED: CBC + DIFF CANCELED: COMP METABOLIC PANEL CANCELED: TYPE + SCREEN 2. Right tubal , unspecified whether intrauterine present O00.101 HCG QUANTITATIVE Discussed pelvic ultrasound findings and concern for ectopic . Discussed limitations with HCG quants and pelvic ultrasounds. Discussed r/b/a medical management with Methotrexate vs surgical management. Patient is an appropriate candidate for MTX, and she desires to proceed with MTX. Will get labs and set up for MTX injection. After visit ALT returned at 53. Discussed patient and lab results with GI provider Dr. Cobb who states it is OK to proceed with MTX based on her history. Linda Sloan, Medical Decision Making: Problems: Moderate: New problem with uncertain prognosis Data: Unique test(s) ordered: 3+ Risk: Low: Low risk from testing/treatment Moderate: Drug management Medical Decision Making Level: 4 - Moderate [facility] 11-23-2023 History of Presen t illness Narrative Michelle Henderson is a 38 year old female who presents for problem visit - follow up after pelvic ultrasound. HPI: Patient presented to office today for a scheduled pelvic ultrasound. She denies pain or bleeding at this time. Saw AUDIT ASSOCIATE for NOB visit on 11/20/23 who was following HCG quants: 67 > 1,034 > 701. She has no pain but did have RLQ tenderness during the pelvic US, which has since resolved. She feels well and offers no complaints. 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 History LMP: 10/09/2023, Age at Menarche: Age at First : Age at Menopause: Management Scientist History Comments: Sexual Activity: Yes; Male Contraception: No contraception data on record PAST MEDICAL HISTORY Diagnosis Date Gastroparesis Liver disease NEGATIVE MEDICAL HISTORY PAST SURGICAL HISTORY Procedure Laterality Date BREAST BIOPSY NEEDLE RIGHT Right 09/17/2021 CHOLECYSTECTOMY HX 2015 FAMILY HISTORY Problem Relation Age of Onset other (MVP, IBS) Mother No Known Problems Father no relationship Cancer Sister cervical Depression Brother Social History Tobacco Use Smoking status: Former Passive exposure: Never Smokeless tobacco: Never Tobacco comments: Was vaping have already quit Vaping Use Vaping Use: Former Substances: Nicotine, Flavoring Devices: Disposable Substance Use Topics Alcohol use: No Drug use: No Current Outpatient Medications Medication Sig 25/iron fum/folic/dha (-1 ORAL) Take by mouth. No current facility-administered medications for this visit. Allergies As of Date: 11/23/2023 (No Known Allergies) Fully Assessed 11/23/2023 REVIEW OF SYSTEMS Abdomen: No pain, N/V. Expanded ROS: No lightheadedness, dizziness. Allergies and current medication updated:Yes EXAM: BP 108/66 Wt 183 lb 12.8 oz (83.4kg) LMP 10/09/2023 GENERAL: pleasant, female in no apparent distress HEENT: Normocephalic and atraumatic NECK: full range of motion DERMATOLOGY: Normal and without lesions CHEST: Normal inspiratory effort ABDOMEN: soft, non-tender, and no masses, non acute NEURO: exam grossly non-focal EXTREMITIES: normal ASSESSMENT AND PLAN: Encounter Diagnosis ICD-10-CM 1. Right tubal without intrauterine O00.101 CBC + DIFF COMP METABOLIC PANEL TYPE + SCREEN HCG QUANTITATIVE CANCELED: CBC + DIFF CANCELED: COMP METABOLIC PANEL CANCELED: TYPE + SCREEN 2. Right tubal , unspecified whether intrauterine present O00.101 HCG QUANTITATIVE Discussed pelvic ultrasound findings and concern for ectopic . Discussed limitations with HCG quants and pelvic ultrasounds. Discussed r/b/a medical management with Methotrexate vs surgical management. Patient is an appropriate candidate for MTX, and she desires to proceed with MTX. Will get labs and set up for MTX injection. After visit ALT returned at 53. Discussed patient and lab results with GI provider Dr. Cobb who states it is OK to proceed with MTX based on her history. Linda Sloan DO Medical Decision Making: Problems: Moderate: New problem with uncertain prognosis Data: Unique test(s) ordered: 3+ Risk: Low: Low risk from testing/treatment Moderate: Drug management Medical Decision Making Level: 4 - Moderate documented in this encounter [facility] 11-23-2023 Instructions Kajal Pena RN - 11/23/2023 9:59 AM EST ECTOPIC PATIENT INFORMATION You have received treatment for an ectopic . An ectopic occurs when the embryo implants in the fallopian tube or outside the uterus. This condition is a serious condition that requires prompt treatment. Ectopic is treated with a drug called Methotrexate. This medication stops the cells from dividing. This medication is given by injection. All medications have side effects. However, many people do not experience them, or have a mild form. Severe side effects of this medication more commonly develop with intermediate manager treatment, such as received by cancer patients. Methotrexate for Ectopic : You were given a medication called methotrexate to treat your ectopic and prevent dangerous complications. Please follow these instructions carefully and plan close follow-up to ensure the safest possible outcome. AVOID the following after treatment until HCG returns to normal or instructed by your provider: Vitamins that contain folic acid (this includes all vitamins) Alcohol Penicillin and Sulfa antibiotics Nonsteroidal anti-inflammatory medications (e.g., ibuprofen, Advil , Motrin , Aleve ) Common and normal side effects: Nausea or vomiting Poor appetite Headache Insomnia Mild abdominal pain or cramping Spotting Fatigue Indigestion When to call 911 or emergency services: Difficulty breathing Swelling of your face, lips, tongue, or throat Severe abdominal or pelvic pain Call you doctor if you experience: Hives Blood tinged vomit Feeling lightheaded or dizzy Sores in your mouth or on your lips Black and tarry stool Blood in your urine Warning signs of methotrexate failure; please call the physician with any of the following: Sharp abdominal pain Pain on one side Dizziness, weakness Pain in the shoulder or neck Heavy vaginal bleeding Additional instructions: Methotrexate can take up to 30 days or more to be fully excreted from the body. It is cleared out of your body in both urine and stool, so wash your hands well after using the restroom. Do not have sexual intercourse until your physician has determined it is safe to do so. Use reliable contraception for at least 90 days after the methotrexate injection. Do not attempt until at least 90 days after the injection. Avoid sun exposure. Avoid heavy lifting or strenuous activity. Follow-up: Blood work needs to be repeated on Day 4 and again on Day 7 after receiving the methotrexate (Day 1 is the day of treatment) to confirm that it is working appropriately. Day 1: 11/23/2023 (Methotrexate Administration) Day 4: TBD Day 7: TBD _ See your physician on Day 7 or 8 to review results of the labs and determine the next best step in your management. Important contact Information: Listed below is the contact information for the provider you have seen and will be providing follow-up care. If there is a question or concern, please contact the provider/group providing your care directly. Encounter provider: Linda Sloan MD Number: [phone] Evenings and weekends: After hours, the office number will forward to the answering service who will contact the on-call Gynecology (TOBACCO STRIPPING MACHINE OPERATOR) doctor. If there is difficulty in connecting, the alternative number is [phone]. Note: If your concern is an emergency, please call 911. ECTOPIC PATIENT INFORMATION You have received treatment for an ectopic . An ectopic occurs when the embryo implants in the fallopian tube or outside the uterus. This condition is a serious condition that requires prompt treatment. Ectopic is treated with a drug called Methotrexate. This medication stops the cells from dividing. This medication is given by injection. All medications have side effects. However, many people do not experience them, or have a mild form. Severe side effects of this medication more commonly develop with intermediate manager treatment, such as received by cancer patients. Methotrexate for Ectopic : You were given a medication called methotrexate to treat your ectopic and prevent dangerous complications. Please follow these instructions carefully and plan close follow-up to ensure the safest possible outcome. AVOID the following after treatment until HCG returns to normal or instructed by your provider: Vitamins that contain folic acid (this includes all vitamins) Alcohol Penicillin and Sulfa antibiotics Nonsteroidal anti-inflammatory medications (e.g., ibuprofen, Advil , Motrin , Aleve ) Common and normal side effects: Nausea or vomiting Poor appetite Headache Insomnia Mild abdominal pain or cramping Spotting Fatigue Indigestion When to call 911 or emergency services: Difficulty breathing Swelling of your face, lips, tongue, or throat Severe abdominal or pelvic pain Call you doctor if you experience: Hives Blood tinged vomit Feeling lightheaded or dizzy Sores in your mouth or on your lips Black and tarry stool Blood in your urine Warning signs of methotrexate failure; please call the physician with any of the following: Sharp abdominal pain Pain on one side Dizziness, weakness Pain in the shoulder or neck Heavy vaginal bleeding Additional instructions: Methotrexate can take up to 30 days or more to be fully excreted from the body. It is cleared out of your body in both urine and stool, so wash your hands well after using the restroom. Do not have sexual intercourse until your physician has determined it is safe to do so. Use reliable contraception for at least 90 days after the methotrexate injection. Do not attempt until at least 90 days after the injection. Avoid sun exposure. Avoid heavy lifting or strenuous activity. Follow-up: Blood work needs to be repeated on Day 4 and again on Day 7 after receiving the methotrexate (Day 1 is the day of treatment) to confirm that it is working appropriately. Day 1: 11/23/2023 (Methotrexate Administration) Day 4: Day 7: See your physician on Day 7 or 8 to review results of the labs and determine the next best step in your management. Important contact Information: Listed below is the contact information for the provider you have seen and will be providing follow-up care. If there is a question or concern, please contact the provider/group providing your care directly. Encounter provider: Linda Sloan MD Number: [phone] Evenings and weekends: After hours, the office number will forward to the answering service who will contact the on-call Gynecology (TOBACCO STRIPPING MACHINE OPERATOR) doctor. If there is difficulty in connecting, the alternative number is [phone]. Note: If your concern is an emergency, please call 911. documented in this encounter [facility] 11-20-2023 Note HNO ID: [id number] Author: RANI YEN APRN.BONUS CLERK Service: ? Author Type: Nurse Practitioner Type: Progress Notes Filed: 11/20/2023 15:46 Note Text: OB point of care ultrasound was performed. See imaging tab for details. TERRELL EnglishNITIAL OB ASSESSMENT HPI: Michelle is a 38 year old Unavailable Female here to establish Obstetrical Care. Patient's last menstrual period was 10/09/2023. from OB Dating Form. Do you have regular periods/menstrual cycles? was unplanned but accepted Complaints: OB History T0 L2 SAB0 IAB0 Ectopic0 Multiple0 Live Births0 How many pregnancies have you had before? Have you had a prior prakash between 20w and 36w6d? Did you present in active spontaneous labor or have ruptured membranes, or advanced cervical dilation (greater than or equal to 4 cm) or effacement? Did you have a previous baby with a GBS Infection? Please select all that apply for any prior : Did you have a partner with Herpes? Prior : History of 4th degree laceration: No Patient's Risk Screening for delivery: MEDICAL/PSYCHOSOCIAL HISTORY: History of hemorrhage or bleeding concerns: No Thyroid Disease: No History of chronic hypertension: No History of pre-existing diabetes: No BMI 32.74 kg/(m2) History of abnormal pap: Yes Prior treatment for cervical dysplasia: none. History of STDs: Tobacco use: No E-Cigarette/Vaping Use: Yes Caffeine use: Yes Drug use: No Alcohol use: No Multivitamin with Folic acid: Yes Church or heritage: No Would refuse blood transfusion if medically necessary: No results found for: ABORHD Social Needs: How often does this describe you? I don't have enough money to pay my bills: Within the past 12 months, have you worried that your food would run out before you had money to buy more? In the past 12 months, has lack of reliable transportation kept you from going to medical appointments or work, or from getting things needed for daily living? In the past 12 months, have you had any concerns about having a place to live, or about the condition or quality of your housing? Would you like more information on any of the following (please check all that apply)? Social History: Do you have any history of depression, anxiety, PTSD, or other mood problems? Do you have a history of abuse or trauma that may impact your experience? Are you currently employed? Depression/Anxiety Screening: denies symptoms of depression. OB Depression and Anxiety Screening- This Encounter (since 11/19/2023) Over the past 2 weeks have you felt down, depressed, or hopeless? Negative Over the past two weeks, have you felt little interest or pleasure in doing things?? 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 No current facility-administered medications for this visit. Allergies As of Date: 11/20/2023 (No Known Allergies) Fully Assessed 11/20/2023 Does patient have penicillin allergy: No REVIEW OF SYSTEMS: Spotting since ED visit on 11/12/23, quant 403. Quant on 11/15/23 1034 PHYSICAL EXAM: Wt 184 lb 12.8 oz (83.8kg) LMP 10/09/2023 GENERAL: pleasant in no apparent distress PELVIS: bleeding noted, nothing seen with US ASSESSMENT: 38 year old at 6w0d wks gestational age Repeat quant today Follow up with formal US this week Will notify patient of test results. Rani Yen APRN.JACQUELYN I spent a total of 45 minutes on the date of the service which included preparing to see the patient, [id number] patient care, completing clinical documentation, obtaining and/or reviewing separately obtained history, performing a medically appropriate examination, counseling and educating the patient/family/caregiver, and ordering medications, tests, or procedures. [facility] 11-07-2023 Note HNO ID: [id number] Author: AALIYAH PEREZ APRN.JACQUELYN Service: ? Author Type: Nurse Practitioner Type: Progress Notes Filed: 11/07/2023 09:26 Note Text: CC: Patient presents with: possible HPI Michelle Henderson is a 38 year old female who presents today for above. Patient reports missed period, nausea, urinary frequency and breast tenderness. She missed a few doses of her control last month. She has taken a few home tests that were faintly positive and then a digital test this morning was positive as well. She is requesting a blood test to confirm. [employer] with [facility]. Review of Systems See HPI PAST [...] per her request. Recommend scheduling with her hemodialysis patient care specialist, she is agreeable. - CONSULT TO MFTS - HCG QUANTITATIVE Prescription instructions reviewed with patient as applicable. Potential red flag symptoms discussed with the patient. Reviewed appropriate action plan to take if red flag symptoms occur. Patient agreeable to treatment plan. During this patient visit I have spent approximately 20 minutes in counseling regarding test results and coordinating care. Aaliyah Perez APRN.[facility] 10-31-2023 Note HNO ID: [id number] Author: ANAY SPENCE RDMS Service: ? Author Type: Band Sawing Machine Operator Type: Progress Notes Filed: 10/31/2023 15:56 Note Text: Radiology Service Progress Note PATIENT NAME: Michelle Henderson DATE OF SERVICE: October 31, 2023 TIME: [...] IV DATA: Not applicable SIGNED BY: Anay Spence RDMS October 31, 2023 3:56 PM [facility] 10-31-2023 Note HNO ID: [id number] Author: YOBANI HERRERA Mammo Tech Service: ? Author Type: Band Sawing Machine Operator Type: Progress Notes Filed: 10/31/2023 15:07 Note Text: Radiology Service Progress Note PATIENT NAME: Michelle Henderson DATE OF SERVICE: October 31, 2023 TIME: [...] PERIPHERAL IV DATA: Not applicable SIGNED BY: Lalo Bautista October 31, 2023 2:50 PM [facility] 10-06-2023 Note HNO ID: [id number] Author: Aaliyah Perez APRN.BONUS CLERK Service: ? Author Type: Nurse Practitioner Type: Progress Notes Filed: 10/06/2023 9:24 AM Note Text: CC: Patient presents with: Breast Problem: Lump on right breast [facility] Michelle Henderson is a 38 year old female who [...] made to exam dated: 09/17/2021 mammogram - [facility]. There is a benign 1.9 cm x [...] the right breast Evaluate further with: - [facility] DIAGNOSTIC RIGHT - US BREAST LTD RIGHT Follow-up pending results Prescription instructions reviewed with patient as applicable. Potential red flag symptoms discussed with the patient. Reviewed appropriate action plan to take if red flag symptoms occur. Patient agreeable to treatment plan. Aaliyah Perez APRN.JACQUELYN [facility] 09-08-2023 Note HNO ID: [id number] Author: Aaliyah Pineda APRN.JACQUELYN Service: ? Author Type: Nurse Practitioner Type: Progress Notes Filed: 09/08/2023 9:11 AM Note Text: CC: Patient presents with: Dizziness: Has taken HPI Michelle Henderson is a 38 year old female who [...] intact. Coordination: Romberg sign negative. Coordination normal. Tbzzgk-Qslz-Yemjnu Test normal. Rapid alternating movements normal. Gait: Gait and tandem walk normal. Deep Tendon Reflexes: Reflexes are normal and symmetric. Comments: Aníbal Hallpike negative DATA REVIEWED: Most recent labs ASSESSMENT/PLAN: 1. Dizziness - ICD9: 780.4, ICD10: R42 (primary diagnosis) Etiology unclear. No alarm symptoms or exam findings. Neuro exam benign. Aníbal Hallpike negative Check labs: - CBC + DIFF - COMP METABOLIC PANEL Follow-up pending results 2. Missed period - ICD9: 626.4, ICD10: N92.6 - HCG QUANTITATIVE Prescription instructions reviewed with patient as applicable. Potential red flag symptoms discussed with the patient. Reviewed appropriate action plan to take if red flag symptoms occur. Patient agreeable to treatment plan. Aaliyah Pineda, DEBEAKER.BONUS CLERK [facility] 09-08-2023 History of Presen t illness Narrative CC: Patient presents with: Dizziness: Has taken HPI Michelle Henderson is a 38 year old female who [...] intact. Coordination: Romberg sign negative. Coordination normal. Zluspv-Exbo-Tammbf Test normal. Rapid alternating movements normal. Gait: Gait and tandem walk normal. Deep Tendon Reflexes: Reflexes are normal and symmetric. Comments: [place] Hallpike negative DATA REVIEWED: Most recent labs ASSESSMENT/PLAN: 1. Dizziness - ICD9: 780.4, ICD10: R42 (primary diagnosis) Etiology unclear. No alarm symptoms or exam findings. Neuro exam benign. [place] Hallpike negative Check labs: - CBC + [...] Aaliyah Pineda APRN.CNP documented in this encounter [facility] 04-17-2023 Miscellaneous Notes Message to call office to schedule FU when Meredith returns and once scheduled refills can be sent. Please help her schedule a follow-up when Meredith is back. 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 Mass of right breast, unspecified quadrant - ICD9: 611.72, ICD10: N63.10 - [facility] DIAGNOSTIC BILAT - BREAST LTD RT Zheng Sharif MD documented in this encounter [facility] 11-15-2022 History of Presen t illness Narrative This note was created using Tinkriter. Subjective Michelle Henderson is a 37 year old female. HPI [...] pain or abnormal vaginal bleeding. -Follow-up with hemodialysis patient care specialist on 11/29/2022 as scheduled. -Possibly irregular menses [...] evaluation. DIANNE Henderson documented in this encounter [facility] 10-12-2022 Miscellaneous Notes Patients 11/10/21 appointment needs rescheduled due to provider vacation, called patient to reschedule but no answer and the VM box was full so could not leave message. I have set out a mychart message regarding this issue. According to patients chart this appointment is not for any medications there for it can be rescheduled to the firs available whether in person or VV documented in this encounter [facility] 09-23-2022 Miscellaneous Notes This was probable cause of slight elevation. No need for repeat labs at this time. Thank you June Pineda APRN.CNP Patient returned call and went over results, notes from June Pineda AUDIT ASSOCIATE, patient said she was ill recently with URI, no fever, no steroids, no UTI symptoms. Left message for return call Please let patient know lab work was all within acceptable ranges, but white blood cells were slightly elevated. Has she been ill recently or had any steroids? Any fever? Skin infections? Difficulty or painful urination? Thank you June Pineda APRN.CNP documented in this encounter [facility] 09-16-2022 Instructions Salud Scruggs APRN.CNP - 09/16/2022 [...] These are formulated to give you a liquid flavor compounder period. Unless otherwise instructed, you should start [...] less iron deficiency anemia in pill users. FDC use is associated with a decreased incidence [...] and mild fluid retention. There is no intermediate manager weight gain with the use of the [...] necessary health information. documented in this encounter [facility] 09-16-2022 History of Presen t illness Narrative Administrative Assistant Front Desk offered:Patient sana Martinez is a 37 year [...] OB History No obstetric history on file. Management Scientist History LMP: 08/16/2021 (Approximate), Having periods Age at Menarche: Age at First : Age at Menopause: Management Scientist History Comments: Sexual Activity: Yes; Male Contraception: [...] external genitalia normal, normal Bartholin's glands, urethra, [place]'s glands, no vulvar lesions, no cervical lesions, [...] year or sooner as needed Salud Scruggs APRN.JACQUELYN documented in this encounter [facility] 09-16-2022 Miscellaneous Notes Spoke to patient and scheduled. Consult to Behavior health, please assist and advice. Thank you, Bertha Sultana PSS documented in this encounter [facility] 09-14-2022 History of Presen t illness Narrative BEHAVIORAL HEALTH SOCIAL WORK QUICK NOTE Provider Action/FYI Chart review completed Patient needing appointment scheduled with Meredith Morrow CNP. Patient identified for [facility] from: PCP Reason for referral: Resources Behavioral Health Resources: Psychiatry med management [facility] encounter type: Chart Review Attempts to Outreach: 1 attempt Referral made: Psychiatry - Internal Final Disposition: Resources given Patient Discharged?: Yes Patient reported that caregiver was able to meet their needs today?: N/A Pt identified by name and . Provider interested in patient seeing psychiatry at [facility], specifically Meredith Morrow CNP. SW routing chart to VIKI, Shannan Wellington who can assist with patient scheduling. No needs further from this SW at this time. ADRIANA Perez, ACM-MAGDIEL documented in this encounter [facility] 09-14-2022 History of Presen t illness Narrative Reason for Visit Patient presents with: Follow Up: lower back pain Michelle Henderson is a 37 year old female who [...] clear so we will send her to [facility] , [facility], she may benefit from Seeing Meredith. No problem-specific Assessment & Plan notes found [...] diet of 1000 mg/day for under 50, 0435-4856 mg/day for 50+ - LIPID PANEL BASIC [...] CONSULT TO PRIMARY CARE BEHAVIORAL HEALTH ADULT Zheng Sharif MD documented in this encounter [facility] 09-08-2022 Note HNO ID: [id number] Author: Almita Lowery APRN.BONUS CLERK Service: ? 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 09/08/2022 by Almita Lowery APRN.BONUS CLERK Risk Assessment: STORMY-7: STORMY - 7 SCORES [...] Abuse: 0 - No Psychological Disease: Yes ADD/ADHD/OCD/Bipolar/Schizophren ia: 2 - Yes Depression: No Risk Total: [...] Appears well per (more content not included)... [facility] 09-08-2022 Miscellaneous Notes Sent internal referral Confirmation#: [id number] documented in this encounter [facility] 09-08-2022 Note HNO ID: [id number] Author: Lurdes Mathias MA Service: ? Author Type: Corporate Executive Chef Type: Progress Notes Filed: 09/08/2022 12:49 PM [...] suicidal ideas. The patient is not nervous/anxious. [facility] 09-08-2022 Instructions Almita Lowery APRN.JACQUELYN - 09/08/2022 9:37 AM EST Activity as tolerated Use Ice and/or heat as tolerated as needed documented in this encounter [facility] 09-08-2022 History of Presen t illness Narrative [facility] Today's Date: 09/08/2022 Last Visit: N/A Name: Michelle Henderson : 1985 Purpose: New Patient Consultation Chief complaint: Low Back Pain Interval History: N/A Initial HPI: (Obtained on 09/08/2022) Michelle Henderson is a 37 year old year-old female; who presents having been referred by Zheng Sharif, for evaluation and management of the above-mentioned [...] 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 09/08/2022 by Almita Lowery APRN.BONUS CLERK Risk Assessment: STORMY-7: STORMY - 7 SCORES [...] Abuse: 0 - No Psychological Disease: Yes ADD/ADHD/OCD/Bipolar/Schizophren ia: 2 - Yes Depression: No Risk Total: [...] this caused her to feel drowsy. Michelle Koch Beatriz would benefit from the following to decrease [...] 09/08/2022 Completed and reviewed, low risk Functional Sabianist: Physical Therapy (Land-based) Additional Studies: EMG BL [...] medical decision making from today's date. Almita Lowery APRN.BONUS CLERK Pain Management [facility] Review of Systems Constitutional: Negative for activity [...] is not nervous/anxious. documented in this encounter [facility] 07-12-2022 History of Presen t illness Narrative Radiology Service Progress Note PATIENT NAME: Michelle Henderson DATE OF SERVICE: July 12, 2022 TIME: 4:46 PM PATIENT IDENTITY VERIFICATION COMPLETED USING TWO (2) IDENTIFIERS: Name and Date of confirmed by patient verbally. FALL SCREENING: Has the patient had 2 falls in the last year or 1 fall with injury or currently using an Ambulatory Assistive Device (Walker, Cane, Wheelchair, Crutches, etc.)? No PATIENT GENDER DATA: Female. status: : No status: NO. PATIENT RELEVANT IMPLANT DATA REVIEWED: Yes RADIOLOGY DEPARTMENT: General X-ray: Exam(s) Completed: Spine X-Ray(s): Lumbar AP / LAT / L5-S1 PERIPHERAL IV DATA: Not applicable SIGNED BY: RT Argenis(R) July 12, 2022 4:46 PM documented in this encounter [facility] 07-12-2022 History of Presen t illness Narrative Reason for Visit Patient presents with: Back Pain: x 2 years 10 Michelle Henderson is a 37 year old female who [...] - ICD9: 278.01, V85.36, ICD10: E66.01, Z68.36 Zheng Sharif MD documented in this encounter [facility] 04-04-2022 Miscellaneous Notes NOV none MARILOU 01/05/22 [...] Diane Kay MA documented in this encounter [facility] Evaluation + Plan note No data available for this section [facility] Evaluation note Diagnosis Sciatica, unspecified laterality Sleep disturbance Sleep disturbance, unspecified Anxiety and depression Dysthymic disorder [facility] Diagnosis Sciatica, unspecified laterality Sleep disturbance Sleep disturbance, unspecified [facility] Diagnosis Chronic bilateral low back pain with bilateral sciatica- Primary Class 2 severe obesity with serious comorbidity and body mass index (BMI) of 36.0 to 36.9 in adult, unspecified obesity type (HCC) [facility] Diagnosis Chronic bilateral low back pain with bilateral sciatica- Primary Other disturbances of skin sensation Neck pain Cervicalgia [facility] Diagnosis Annual physical exam- Primary Routine general medical examination at a health care facility Encounter for gynecological examination without abnormal finding Routine gynecological examination Special screening examination for viral disease Special screening examination for unspecified viral disease Excessive weight gain Abnormal weight gain Mood disorder (HCC) Unspecified episodic mood disorder [facility] Diagnosis Encounter for gynecological examination (general) (routine) without abnormal findings- Primary General counseling and advice for contraceptive management Other general counseling and advice for contraceptive management Screening for cervical cancer Screening for malignant neoplasm of the cervix Encounter for screening for human papillomavirus (HPV) Special screening examination for human papillomavirus (HPV) [facility] Diagnosis Missed menses- Primary Absence of menstruation Fatigue, unspecified type Nausea Nausea alone [facility] Diagnosis Annual physical exam- Primary Routine general medical examination at a [facility] care facility Mass of right breast, unspecified quadrant [facility] Diagnosis General counseling and advice for contraceptive management Other general counseling and advice for contraceptive management [facility] [facility] Diagnosis Mass of right breast, unspecified quadrant [facility] Diagnosis Dizziness- Primary Dizziness and giddiness Missed period Irregular menstrual cycle documented [facility] this encounter [facility] Diagnosis with uncertain dates in first trimester [facility] Diagnosis Right tubal without intrauterine - Primary Right tubal , unspecified whether intrauterine present [facility] Diagnosis Wellness examination- Primary Encounter for immunization Need for other specified prophylactic vaccination against single bacterial disease Immunity status testing Antibody response examination documented in this encounter [facility] Diagnosis Hx of ectopic - Primary Personal history of other genital system and obstetric disorders documented in this encounter [facility] Diagnosis Hx of ectopic - Primary Personal history of other genital system and obstetric disorders Right tubal without intrauterine documented in this encounter [facility] Diagnosis Exudative tonsillitis- Primary documented in this encounter [facility] Diagnosis Pelvic pain- Primary Other fatigue Female infertility Female infertility of unspecified origin documented [facility] Diagnosis Pelvic pain- Primary documented in this encounter [facility] Diagnosis Encounter for screening mammogram for breast cancer documented in this encounter [facility] Diagnosis Chronic bilateral low back pain with bilateral sciatica [facility] No data available for this section [facility] Reason for referral (narrative)* Diagnostic Procedure Only (Routine) - Closed Specialty Diagnoses / Procedures Referred By Contac t Referred To Contact XR IMAGING Diagnoses Chronic bilateral low back pain with bilateral sciatica Procedures XR LUMBAR GENERAL 3V AP/LAT/L5-S1 RADEX SPINE LUMBOSACRAL 2/3 VIEWS Zheng Sharif MD [address] [place] [address] Xr Imaging Referral ID Status Reason Start Date Expiration Date V isits Requested Visits Authorized [id number] Closed Auto-Generate d Referral 07/12/2022 08/11/2023 1 1 * Consult, Test, Treat (Routine) - Authorized Specialty Diagnoses / Procedures Referred By Tianaac t Referred To Contact Pain Management Diagnoses Chronic bilateral low back pain with bilateral sciatica Procedures CONSULT TO PAIN MGT OFFICE/OUTPATIENT [facility] MDM 60-74 MINUTES Zheng Sharif MD [address] [place] [address] Referral ID Status Reason Start Date Expiration Date Visits Requested Visits Authorized [id number] Authorized PCP Requested Referral 07/12/2022 10/10/2022 1 1 [facility] for referral (narrative)* - Pending Review Specialty Diagnoses / Procedures Referred By Contac t Referred To Contact Physical Therapy Diagnoses Chronic bilateral low back pain with bilateral sciatica Procedures CONSULT TO PHYSICAL THERAPY Almita Lowery, DEBEAKER.BONUS CLERK [address] [place] [address] Referral ID Status Reason Start Date Expiration Date V isits Requested Visits Authorized [id number] Pending Review 09/08/2022 12/07/2022 1 1 * Diagnostic Procedure Only (Routine) - Pending Review Specialty Diagnoses / Procedures Referred By Contac t Referred To Contact XR IMAGING Diagnoses Neck pain Procedures XR CERV OTHER 6V AP/LAT/FLX/EXT/OBL RADEX SPINE CERVICAL 6 OR MORE VIEWS Almita Lowery, DEBEAKER.BONUS CLERK [address] [place] [address] Xr Imaging Referral ID Status Reason Start Date Expiration Date Visits Requested Visits Authorized [id number] Pending Review Auto-Generat ed Referral 10/08/2023 1 1 [facility] for referral (narrative)* Diagnostic Procedure Only (Routine) - Authorized Specialty Diagnoses / Procedures Referred By Contac t Referred To Contact BR IMAGING Diagnoses Mass of right breast, unspecified quadrant Procedures US BREAST LTD RT US BREAST UNI REAL TIME WITH IMAGE LIMITED Zheng Sharif MD [address] [place] [address] [facility] [address] [place] [address] Referral ID Status Reason Start Date Expiration Date Visits Requested Visits Authorized [id number] Authorized Auto-Generat ed Referral 12/09/2022 01/08/2024 1 1 * Diagnostic Procedure Only (Routine) - Authorized Specialty Diagnoses / Procedures [facility] BR IM[facility]ING Diagnoses Mass of right breast, unspecified quadrant Procedures PRIYANKA DIAGNOSTIC BILAT DIAGNOSTIC MAMMOGRAPHY COMPUTER-AIDED DETCJ BI Zheng Sharif MD [address] [place] [address] [facility] [address] [place] [address] Referral ID Status Reason Start Date Expiration Date Visits Requested Visits Authorized [id number] Authorized Auto-Generat ed Referral 12/09/2022 01/08/2024 1 1 [facility] for referral (narrative)* Diagnostic Procedure Only (Routine) - Authorized Specialty Diagnoses / Procedures Referred By Mary grace Referred To Contact BR IMAGING Diagnoses Encounter for screening mammogram for breast cancer Procedures PRIYANKA SCREENING W BERTA SCREENING DIGITAL BREAST TOMOSYNTHESIS BI SCREENING MAMMOGRAPHY BI 2-VIEW BREAST INC Zheng Santa MD [address] [place] [address] [facility] [address] [place] [address] Referral ID Status Reason Start Date Expiration Date Visits Requested Visits Authorized [id number] Authorized Auto-Generat ed Referral 06/05/2024 07/05/2025 1 1 [facility] for referral (narrative)* Diagnostic Procedure Only (Routine) - Closed Specialty Diagnoses / Procedures Referred By Mary grace Referred To Contact XR IMAGING Diagnoses Chronic bilateral low back pain with bilateral sciatica Procedures XR LUMBAR GENERAL 3V AP/LAT/L5-S1 RADEX SPINE LUMBOSACRAL 2/3 VIEWS Zheng Sharif MD [address] [place] [address] [place] [address] Referral ID Status Reason Start Date Expiration Date V isits Requested Visits Authorized [id number] Closed Auto-Generate d Referral 07/12/2022 08/11/2023 1 1 [facility] for visit Narrative* Diagnostic Procedure Only (Routine) - Closed Specialty Diagnoses / Procedures Referred By Mary grace Referred To Contact BR IMAGING Diagnoses Mass of right breast, unspecified quadrant Procedures PRIYANKA DIAGNOSTIC BILAT DIAGNOSTIC MAMMOGRAPHY COMPUTER-AIDED DETCJ BI Zheng Sharif MD [address] [place] [address] [facility] [address] [place] [address] Referral ID Status Reason Start Date Expiration Date V isits Requested Visits Authorized [id number] Closed Auto-Generate d Referral 12/09/2022 01/08/2024 1 1 [facility] for visit Narrative* Diagnostic Procedure Only (Routine) - Closed Specialty Diagnoses / Procedures Referred By Mary t Referred To Contact [facility] Diagnoses Pelvic pain Procedures PELVIC US WHI US PELVIC NONOBSTETRIC REAL-TIME IMAGE COMPLETE Constantino Gonzalez MD [address] [place] [address] [facility] [address] [place] [address] Referral ID Status Reason Start Date Expiration Date V isits Requested Visits Authorized [id number] Closed Auto-Generate d Referral 04/02/2024 04/02/2025 1 1 [facility] for visit Narrative* Diagnostic Procedure Only (Routine) - Closed Specialty Diagnoses / Procedures Referred By Mary grace Referred To Contact BR IMAGING Diagnoses Encounter for screening mammogram for breast cancer Procedures PRIYANKA SCREENING W BERTA SCREENING DIGITAL BREAST TOMOSYNTHESIS BI SCREENING MAMMOGRAPHY BI 2-VIEW BREAST INC CAD Zheng Sharif MD [address] [place] [address] [facility] [address] [place] [address] Referral ID Status Reason Start Date Expiration Date V isits Requested Visits Authorized [id number] Closed Auto-Generate d Referral 06/05/2024 07/05/2025 1 1 [facility] for visit Narrative* Diagnostic Procedure Only (Routine) - Closed Specialty Diagnoses / Procedures Referred By Mary t Referred To Contact XR IMAGING Diagnoses Chronic bilateral low back pain with bilateral sciatica Procedures XR LUMBAR GENERAL 3V AP/LAT/L5-S1 RADEX SPINE LUMBOSACRAL 2/3 VIEWS Zheng Sharif MD [address] [place] [address] [place] [address] Referral ID Status Reason Start Date Expiration Date V isits Requested Visits Authorized [id number] Closed Auto-Generate d Referral 07/12/2022 08/11/2023 1 1 [facility] Reason for Referral Specialty Diagnoses / Procedures Referred By Mary t Referred To Contact Diagnoses Female infertility Procedures CONSULT TO INFERTILITY CLINIC OFFICE/OUTPATIENT [facility] MDM 60 MINUTES Constantino Gonzalez MD [address] [place] [address] Referral ID Status Reason Start Date Expiration Date Visits Requested Visits Authorized [id number] Authorized PCP Requested Referral Auto-Generate d Referral 04/02/2024 04/02/2025 1 1 Specialty Diagnoses / Procedures Referred By Contac t Referred To Contact [facility] Diagnoses Pelvic pain Procedures PELVIC US WHI US PELVIC NONOBSTETRIC REAL-TIME IMAGE COMPLETE Constantino Gonzalez MD [address] [place] [address] [facility] [address] [place] [address] Referral ID Status Reason Start Date Expiration Date Visits Requested Visits Authorized [id number] Authorized Auto-Generat ed Referral 04/02/2024 04/02/2025 1 1 Specialty Diagnoses / Procedures Referred By Contac t Referred To Contact Gynecology Diagnoses Encounter for gynecological examination without abnormal finding Procedures CONSULT TO GYNECOLOGY OFFICE/[facility]PATIENT [facility] MDM 60-74 MINUTES Zheng Sharif MD [address] [place] [address] Referral ID Status Reason Start Date Expiration Date Visits Requested Visits Authorized [id number] Authorized PCP Requested Referral Auto-Generate d Referral 2 09/14/2023 1 1 Summary Purpose Family History No Family History Records FoundNo Family History Records FoundNo Family History Records Found Advance Directives No Advanced Directives Records FoundNo Advanced Directives Records FoundNo Advanced Directives Records Found Additional Source Comments Source Comments (unrecognize d section and content) In the event this informatio n is protected by the Federal Confidentiality of Alcohol and Drug Abuse Patient Records regulations: The Federal rules restrict any use of the information to criminally investigate or prosecute any alcohol or drug abuse patient.[facility] the event this information is protected by the Federal Confidentiality of Alcohol and Drug Abuse Patient Records regulations: The Federal rules restrict any use of the information to criminally investigate or prosecute any alcohol or drug abuse patient.[facility] the event this information is protected by the Federal Confidentiality of Alcohol and Drug Abuse Patient Records regulations: The Federal rules restrict any use of the information to criminally investigate or prosecute any alcohol or drug abuse patient.[facility] the event this information is protected by the Federal Confidentiality of Alcohol and Drug Abuse Patient Records regulations: The Federal rules restrict any use of the information to criminally investigate or prosecute any alcohol or drug abuse patient.[facility] the event this information is protected by the Federal Confidentiality of Alcohol and Drug Abuse Patient Records regulations: The Federal rules restrict any use of the information to criminally investigate or prosecute any alcohol or drug abuse patient.[facility] the event this information is protected by the Federal Confidentiality of Alcohol and Drug Abuse Patient Records regulations: The Federal rules restrict any use of the information to criminally investigate or prosecute any alcohol or drug abuse patient.[facility] the event this information is protected by the Federal Confidentiality of Alcohol and Drug Abuse Patient Records regulations: The Federal rules restrict any use of the information to criminally investigate or prosecute any alcohol or drug abuse patient.[facility] the event this information is protected by the Federal Confidentiality of Alcohol and Drug Abuse Patient Records regulations: The Federal rules restrict any use of the information to criminally investigate or prosecute any alcohol or drug abuse patient.[facility] the event this information is protected by the Federal Confidentiality of Alcohol and Drug Abuse Patient Records regulations: The Federal rules restrict any use of the information to criminally investigate or prosecute any alcohol or drug abuse patient.[facility] the event this information is protected by the Federal Confidentiality of Alcohol and Drug Abuse Patient Records regulations: The Federal rules restrict any use of the information to criminally investigate or prosecute any alcohol or drug abuse patient.[facility] the event this information is protected by the Federal Confidentiality of Alcohol and Drug Abuse Patient Records regulations: The Federal rules restrict any use of the information to criminally investigate or prosecute any alcohol or drug abuse patient.[facility] the event this information is protected by the Federal Confidentiality of Alcohol and Drug Abuse Patient Records regulations: The Federal rules restrict any use of the information to criminally investigate or prosecute any alcohol or drug abuse patient.[facility] the event this information is protected by the Federal Confidentiality of Alcohol and Drug Abuse Patient Records regulations: The Federal rules restrict any use of the information to criminally investigate or prosecute any alcohol or drug abuse patient.[facility] the event this information is protected by the Federal Confidentiality of Alcohol and Drug Abuse Patient Records regulations: The Federal rules restrict any use of the information to criminally investigate or prosecute any alcohol or drug abuse patient.[facility] the event this information is protected by the Federal Confidentiality of Alcohol and Drug Abuse Patient Records regulations: The Federal rules restrict any use of the information to criminally investigate or prosecute any alcohol or drug abuse patient.[facility] the event this information is protected by the Federal Confidentiality of Alcohol and Drug Abuse Patient Records regulations: The Federal rules restrict any use of the information to criminally investigate or prosecute any alcohol or drug abuse patient.[facility] the event this information is protected by the Federal Confidentiality of Alcohol and Drug Abuse Patient Records regulations: The Federal rules restrict any use of the information to criminally investigate or prosecute any alcohol or drug abuse patient.[facility] the event this information is protected by the Federal Confidentiality of Alcohol and Drug Abuse Patient Records regulations: The Federal rules restrict any use of the information to criminally investigate or prosecute any alcohol or drug abuse patient.[facility] the event this information is protected by the Federal Confidentiality of Alcohol and Drug Abuse Patient Records regulations: The Federal rules restrict any use of the information to criminally investigate or prosecute any alcohol or drug abuse patient.[facility] the event this information is protected by the Federal Confidentiality of Alcohol and Drug Abuse Patient Records regulations: The Federal rules restrict any use of the information to criminally investigate or prosecute any alcohol or drug abuse patient.[facility] the event this information is protected by the Federal Confidentiality of Alcohol and Drug Abuse Patient Records regulations: The Federal rules restrict any use of the information to criminally investigate or prosecute any alcohol or drug abuse patient.[facility] the event this information is protected by the Federal Confidentiality of Alcohol and Drug Abuse Patient Records regulations: The Federal rules restrict any use of the information to criminally investigate or prosecute any alcohol or drug abuse patient.[facility] the event this information is protected by the Federal Confidentiality of Alcohol and Drug Abuse Patient Records regulations: The Federal rules restrict any use of the information to criminally investigate or prosecute any alcohol or drug abuse patient.[facility] the event this information is protected by the Federal Confidentiality of Alcohol and Drug Abuse Patient Records regulations: The Federal rules restrict any use of the information to criminally investigate or prosecute any alcohol or drug abuse patient.[facility] the event this information is protected by the Federal Confidentiality of Alcohol and Drug Abuse Patient Records regulations: The Federal rules restrict any use of the information to criminally investigate or prosecute any alcohol or drug abuse patient.[facility] the event this information is protected by the Federal Confidentiality of Alcohol and Drug Abuse Patient Records regulations: The Federal rules restrict any use of the information to criminally investigate or prosecute any alcohol or drug abuse patient.[facility] the event this information is protected by the Federal Confidentiality of Alcohol and Drug Abuse Patient Records regulations: The Federal rules restrict any use of the information to criminally investigate or prosecute any alcohol or drug abuse patient.[facility] the event this information is protected by the Federal Confidentiality of Alcohol and Drug Abuse Patient Records regulations: The Federal rules restrict any use of the information to criminally investigate or prosecute any alcohol or drug abuse patient.[facility] the event this information is protected by the Federal Confidentiality of Alcohol and Drug Abuse Patient Records regulations: The Federal rules restrict any use of the information to criminally investigate or prosecute any alcohol or drug abuse patient.[facility] the event this information is protected by the Federal Confidentiality of Alcohol and Drug Abuse Patient Records regulations: The Federal rules restrict any use of the information to criminally investigate or prosecute any alcohol or drug abuse patient.[facility] the event this information is protected by the Federal Confidentiality of Alcohol and Drug Abuse Patient Records regulations: The Federal rules restrict any use of the information to criminally investigate or prosecute any alcohol or drug abuse patient.[facility] the event this information is protected by the Federal Confidentiality of Alcohol and Drug Abuse Patient Records regulations: The Federal rules restrict any use of the information to criminally investigate or prosecute any alcohol or drug abuse patient.[facility] Care Teams (unrecognized sec tion and content) Item Processor Relationship Specialty Start Date End Date Zheng Sharif MD [address] [place] [address] PCP - General Internal Medicine 03/16/21 Item Processor Relationship Specialty Start Date End Date Zheng Sharif MD [address] [place] [address] PCP - General Internal Medicine 03/16/21 Item Processor Relationship Specialty Start Date End Date Zheng Sharif MD [address] [place] [address] PCP - General Internal Medicine 03/16/21 Item Processor Relationship Specialty Start Date End Date Zheng Sharif MD [address] [place] [address] PCP - General Internal Medicine 03/16/21 Item Processor Relationship Specialty Start Date End Date Zheng Sharif MD [address] [place] [address] PCP - General Internal Medicine 03/16/21 Item Processor Relationship Specialty Start Date End Date Zheng Sharif MD [address] [place] [address] PCP - General Internal Medicine 03/16/21 Item Processor Relationship Specialty Start Date End Date Zheng Sharif MD [address] [place] [address] PCP - General Internal Medicine 03/16/21 Item Processor Relationship Specialty Start Date End Date Zheng Sharif MD [address] [place] [address] PCP - General Internal Medicine 03/16/21 Item Processor Relationship Specialty Start Date End Date Zheng Sharif MD [address] [facility] [place] [address] PCP - General Internal Medicine 03/16/21 Item Processor Relationship Specialty Start Date End Date Zheng Sharif MD [address] [facility] [place] [address] PCP - General Internal Medicine 03/16/21 Item Processor Relationship Specialty Start Date End Date Zheng Sharif MD [address] [facility] [place] [address] PCP - General Internal Medicine 03/16/21 Item Processor Relationship Specialty Start Date End Date Zheng Sharif MD [address] [facility] [place] [address] PCP - General Internal Medicine 03/16/21 Item Processor Relationship Specialty Start Date End Date Zheng Sharif MD [address] [place] [address] PCP - General Internal Medicine 03/16/21 Item Processor Relationship Specialty Start Date End Date Zheng Sharif MD [address] [facility] [place] [address] PCP - General Internal Medicine 03/16/21 Item Processor Relationship Specialty Start Date End Date Zheng Sharif MD [address] [place] [address] PCP - General Internal Medicine 03/16/21 Item Processor Relationship Specialty Start Date End Date Zheng Sharif MD [address] [place] [address] PCP - General Internal Medicine 03/16/21 Item Processor Relationship Specialty Start Date End Date Zheng Sharif MD [address] [place] [address] PCP - General Internal Medicine 03/16/21 Item Processor Relationship Specialty Start Date End Date Zheng Sharif MD [address] [place] [address] PCP - General Internal Medicine 03/16/21 Item Processor Relationship Specialty Start Date End Date Zheng Sharif MD [address] [place] [address] PCP - General Internal Medicine 03/16/21 Item Processor Relationship Specialty Start Date End Date Zheng Sharif MD [address] [place] [address] PCP - General Internal Medicine 03/16/21 Item Processor Relationship Specialty Start Date End Date Zheng Sharif MD [address] [place] [address] PCP - General Internal Medicine 03/16/21 Item Processor Relationship Specialty Start Date End Date Zheng Sharif MD [address] [place] [address] PCP - General Internal Medicine 03/16/21 Item Processor Relationship Specialty Start Date End Date Zheng Sharif MD [address] [place] [address] PCP - General Internal Medicine 03/16/21 Item Processor Relationship Specialty Start Date End Date Zheng Sharif MD [address] [facility] [place] [address] PCP - General Internal Medicine 03/16/21 Item Processor Relationship Specialty Start Date End Date Zheng Sharif MD [address] [place], [place] [id number] PCP - General Internal Medicine 03/16/21 Item Processor Relationship Specialty Start Date End Date Zheng Sharif MD [address] [place], [place] [id number] PCP - General Internal Medicine 03/16/21 Item Processor Relationship Specialty Start Date End Date Zheng Sharif MD [address] [place], [place] [id number] PCP - General Internal Medicine 03/16/21 Item Processor Relationship Specialty Start Date End Date Zheng Sharif MD [address] [place], [place] [id number] PCP - General Internal Medicine 03/16/21 Reason for Visit (unrecogniz ed section and content) Reason Comments Refill Request Reason Comments Back Pain x 2 years 04/01 Reason Comments Patient Update Internal referral Reason Comments New Patient Specialty Diagnoses / Procedures Referred By Contac t Referred To Contact Pain Management Diagnoses Chronic bilateral low back pain with bilateral sciatica Procedures CONSULT TO PAIN MGT OFFICE/OUTPATIENT NEW HIGH MDM 60-74 MINUTES Zheng Sharif MD [address] [place] [address] Referral ID Status Reason Start Date Expiration Date V isits Requested Visits Authorized [id number] Closed PCP Requested Referral 07/12/2022 10/10/2022 1 1 Reason Comments Behavioral Health Social Work Reason Comments Follow Up lower back pain Reason Comments Appointment Reason Comments Well Woman Specialty Diagnoses / Procedures Referred By Contac t Referred To Contact Gynecology Diagnoses Encounter for gynecological examination without abnormal finding Procedures CONSULT TO GYNECOLOGY OFFICE/OUTPATIENT NEW HIGH MDM 60-74 MINUTES Zheng Sharif MD [address] [place] [address] Referral ID Status Reason Start Date Expiration Date V isits Requested Visits Authorized [id number] Closed PCP Requested Referral Auto-Generated Referral 09/14/2022 09/14/2023 1 1 Reason Comments Results Reason Comments Nausea Pt reported irregula r menses, last reported 10/08/2022 fatigue, diarrhea d/c b/c reported + hpt. Reason Comments Physical Reason Onset Date Comments Refill Request 04/13/2023 Reason Onset Date Comments Refill Request 07/03/2023 Reason Comments Dizziness Has taken Reason Comments Care Specialty Diagnoses / Procedures Referred By Contac t Referred To Contact [facility] Diagnoses with uncertain dates in first trimester Procedures OBSTETRIC ULTRASOUND WHI US PREG UTERUS AFTER 1ST TRIMEST GESTATION Rani Yen, DEBEAKER.BONUS CLERK [address] [place] [address] [facility] [address] [place] [address] Referral ID Status Reason Start Date Expiration Date V isits Requested Visits Authorized [id number] Closed Auto-Generate d Referral 11/20/2023 11/19/2024 1 1 Reason Onset Date Comments Follow Up F/u from ultraso und Methotrexate Injection 11/23/2023 Reason Comments Physical Reason Comments Follow Up Specialty Diagnoses / Procedures Referred By Contac t Referred To Contact Diagnoses Positive test Procedures CONSULT TO MFTS OFFICE/OUTPATIENT [facility] 60 MINUTES Aaliyah Perez, DEBEAKER.BONUS CLERK [address] [place] [address] Referral ID Status Reason Start Date Expiration Date V isits Requested Visits Authorized [id number] Closed PCP Requested Referral Auto-Generated Referral 11/07/2023 11/06/2024 1 1 Reason Comments Throat Problem Swollen lymph nodes x2 days, possible fevers and ear pain Reason Comments Menstrual Problem INFORMATION SOURCE (unrecogn ized section and content) DATE CREATED AUTHOR 10/20/2022 [facility] DATE CREATED AUTHOR AUTHOR'S ORGANIZ ATION 02/24/2024 [facility] ([place]) DATE CREATED AUTHOR AUTHOR'S ORGANIZ ATION 06/19/2024 [facility] FOR RECORDS PERTAINING TO PATIENTS WHO ARE [...] BE BASED ON THE PRIMARY CLINICAL RECORDS. [facility]. provides no warranty or guarantee of the accuracy or completeness of information in this document.
[2024-08-14 05:46] LABS: Internal QC Validated? YES +Cl - CLEAR BKGD; Pregnancy, Urine Negative Negative
--- NOTE | 2024-08-14 06:30 | EGD_PTH ---
PATHOLOGY RESULTS PATIENT: BRIT HENDERSON LOC: EN U#:[id number] AGE/SX: 39/F ROOM: RE08/14/[address]: Dr. Adilson Cobb DO : 1985 BED: DIS: 08/14/2024 SPEC #: [id number] RECD: 08/14/24 10:19 STATUS: ROSHAN REDilcia #: [id number] XIMENA: 08/14/24 06:[address]: Adilson Cobb DEPT: SURGICAL PATHOLOGY RECD BY: Luiz Winters ENTERED: 08/14/24 12:00 SP TYPE: EGD BIOPSY OT DR: Dr. Brook Gaviria MD Tissues: Duodenum, NOS Gastric mucous membrane Esophagus, NOS Procedures: Special Stain Group I Surgery Specimen Level IV Alcian Blue/PAS (control) HEADER OPERATION: EGD, biopsy, dilatation PRE-OP DIAGNOSIS: Hiatal hernia, eosinophilic esophagitis, hepatomegaly, nausea, alternating constipation and diarrhea TISSUE SUBMITTED: A- Duodenum biopsy, B- Gastric body biopsy, C- Distal esophagus biopsy MICROSCOPIC DIAGNOSIS A. Duodenum, biopsy: Fragments of duodenal mucosa with nonspecific chronic inflammation, gastric metaplasia and Emilie's gland hyperplasia. B. Gastric body, biopsy: Mild gastritis. See microscopic description and comment. C. Distal esophagus, biopsy: Fragments of gastroesophageal mucosa with chronic inflammation. Intestinal metaplasia (goblet cell metaplasia) not identified. See comment. 08/15/2024 COMMENT B. The results of immunohistochemistry for Helicobacter pylori will be reported separately ([id number]). C. Alcian blue/PAS stain with matched control is used in the evaluation of the specimen. MICROSCOPIC DESCRIPTION Slides are reviewed. B. The specimen shows fragments of gastric mucosa with chronic inflammatory cell infiltrates in the lamina propria consisting of lymphocytes and plasma cells, consistent with mild chronic gastritis. GROSS DESCRIPTION A. Received in fixative is one container labeled with the patient's name and designated Duodenum biopsy. The specimen consists of multiple irregular fragments of light avalos soft tissue that in aggregate measure 1.5 x 0.5 x 0.1 cm. The specimen is totally submitted in one cassette. B. Received in fixative is one container labeled with the patient's name and designated Gastric body biopsy. The specimen consists of multiple irregular fragments of light avalos soft tissue that in aggregate measure 1.0 x 0.8 x 0.1 cm. The specimen is totally submitted in one cassette. C. Received in fixative is one container labeled with the patient's name and designated Distal esophagus biopsy. The specimen consists of two irregular fragments of light avalos soft tissue that in aggregate measure 0.8 x 0.5 x 0.1 cm. The specimen is totally submitted in one cassette. SJ.mr 08/14/2024 TC:3 CPT:32623s0,49493
--- NOTE | 2024-08-14 06:30 | IMM_PTH ---
PATHOLOGY RESULTS PATIENT: BRIT HENDERSON LOC: EN U#:[id number] AGE/SX: 39/F ROOM: RE08/14/[address]: Dr. Adilson Cobb DO : 1985 BED: DIS: 08/14/2024 SPEC #: [id number] RECD: 08/14/24 11:45 STATUS: ROSHAN REQ #: [id number] XIMENA: 08/14/24 06:[address]: Adilson Cobb DEPT: IMMUNOHISTOCHEMISTRY RECD BY: Yung Melo ENTERED: 08/14/24 11:45 SP TYPE: IMMUNO OTHR DR: Dr. Brook Gaviria MD Tissues: Gastric mucous membrane Procedures: H Pylori (initial) PHYSICIAN & INSTITUTION [place] [address] SPECIMEN INFORMATION: Tissue Source: B- Gastric body biopsy Clinical Info: Hiatal hernia, eosinophilic esophagitis, hepatomegaly, nausea, alternating constipation and diarrhea Specimen Number: [id number] CPT code: 97585 METHODOLOGY: Deparaffinized sections of prefer/formalin-fixed tissue or PAP/DQ stained slides are incubated with monoclonal/polyclonal antibodies/oligonucleotide probes. Localization is made via biotin free immunoperoxidase method. Appropriate controls are performed and reacted as expected. Results on target cell population are indicated in the following table: RESULTS: ANTIBODY / CLONE RESULT Block B H Pylori (polyclonal) negative These tests were developed and their performance characteristics determined by [facility]. They may not have been cleared or approved by the U.S. Food and Drug Administration. The FDA has determined that such clearance or approval is not necessary. The above immunohistochemical/dualISH markers are ordered and reviewed by the Pathologist. INTERPRETATION: B. Gastric body, biopsy: Negative for Helicobacter pylori organisms. 08/15/2024
--- NOTE | 2024-08-14 06:34 | PRE.ANES_ITS ---
ASA Classification* ASA Classification ASA Classification: 2 Assessment & Plan Anesthesia* Anesthesia Assessment Anesthesia Assessment: Discussed sedation and/or anesthesia options, risks, benefits, and alternatives with patient/parents/legal guardian/POA. Questions invited. The patient/parents/legal guardian/POA seems to understand and agrees to proceed with anesthesia plan. Reviewed the physical assessment, medical history, allergy history and patient home medications list prior to surgery/procedure/anesthetic and documented any changes. Performed airway and anesthesia risk assessments. Anesthesia Type Anesthesia Type: MAC History Source History Obtained from:: Patient and Chart Anesthesia Focused Assessment* Temperature: 97.4 F Pulse Rate: 84 Blood Pressure: 122/74 Respiratory Rate: 18 Pulse Ox: 100 Airway Assessment Mouth opens: >3 cm Mallampati Score: II Teeth Condition: Intact Neck Range of motion (ROM): Full ROM Focused Labs Anesthesia Preop lab: CBC WBC 7.4 K/mm3 (4.4-11.0) 06/21/24 16:01 RBC 4.69 M/mm3 (4.2-5.4) 06/21/24 16:01 Hgb 13.9 g/dL (12.0-15.0) 06/21/24 16:01 Hct 42.2 % (37-47) 06/21/24 16:01 Plt Count 252 K/mm3 (150-450) 06/21/24 16:01 CHEMISTRY Potassium 3.6 mmol/L (3.5-5.1) 12/29/22 00:10 Sodium 141 mmol/L (136-145) 12/29/22 00:10 BUN 14 mg/dL (7-18) 12/29/22 00:10 Creatinine 0.84 mg/dL (0.55-1.02) 12/29/22 00:10 Glucose 95 mg/dL (74-106) 12/29/22 00:10 COAG PT 13.6 SECONDS (11.7-14.9) 06/21/24 16:01 HCG, Quant 403 mIU/mL (1-3) H 11/12/23 22:41 Urine Test Negative Negative 08/14/24 05:30 Pre-Assessment Diagnosis/Proposed Procedure Planned Operative Procedure(s): EGD Anesthesia History 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 When Was Last Pacemaker Check QUESTION #4 FULL TEXT: You/Your Family Experience fever (hyperthermia) with Anesthesia Last Oral Intake Last Oral intake: Last Oral Intake NPO since 22:00 08/14/24 05:48 Meds taken in AM with sips of No 08/14/24 05:48 water? 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 Female Yes 08/12/24 09:49 HX of Motion Sickness No 08/12/24 09:49 HX of N/V After Surgery No 08/12/24 09:49 Non-Smoker Yes 08/12/24 09:49 Duration of Surgery greater No 08/12/24 09:49 than 60 minutes Number of Risk Factors 2 08/12/24 09:49 PONV Score Moderate Risk 08/12/24 09:49 Height & Weight Height & Weight: Anesthesia: Height & Weight Height 5 ft 3 in 08/14/24 05:48 Weight: 95 kg 08/14/24 05:48 Body Mass Index (BMI) 37.0 08/14/24 05:48 Respiratory Assessment Respiratory Assessment - single fold machine operator: Respiratory Tract Infection Hx - single fold machine operator Hx Respiratory Tract Infection No 08/12/24 09:49 STOP Sleep Apnea STOP Sleep Apnea - single fold machine operator: STOP Sleep Apnea - single fold machine operator Hx Hypertension No 08/12/24 09:49 Hx Sleep Apnea No 08/12/24 09:49 CPAP BIPAP Do you snore loudly (louder No 08/12/24 09:49 than talking or can be heard Do you often feel tired/ No 08/12/24 09:49 fatigued/ sleepy during daytime? Has anyone observed you stop No 08/12/24 09:49 breathing during sleep? STOP Results Negative 08/12/24 09:49 QUESTION #5 FULL TEXT : Do you snore loudly (louder than talking or can be heard through closed doors)? 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 Specify any problems Hx of Preganancy in last 3 No 08/12/24 09:49 Months Nurse Filling Out Transfusion VCHRISTIN 08/12/24 09:49 & Questions: Date: 08/12/24 08/12/24 09:49 Time: 09:50 08/12/24 09:49 Patient unable to answer at this time (ie. confused, unrespo /Reproduction History /Reproductive History - single fold machine operator: /Reproductive Hx- single fold machine operator Hx Now No 08/12/24 09:49 Gestational Age (in weeks): EDC: Hx Hx Para Hx Section SAB No 08/12/24 09:49 PFSH Medical History Hx of ectopic Post traumatic stress disorder (PTSD) Migraine headache Difficulty swallowing History of hiatal hernia Shortness of breath on exertion Non-smoker GERD (gastroesophageal reflux disease) Bipolar disorder Fatty liver Home Medications ?Medication ?Instructions ?Recorded ?Last Taken ?Type pantoprazole 20 mg tablet,delayed 20 mg PO BID 30 days #60 tabs 12/29/23 Unknown Rx release (Protonix) duloxetine 20 mg capsule,delayed 20 mg PO HS #30 caps 06/21/24 Unknown Rx release Allergy/AdvReac Type Severity Reaction Status Date / Time No Known Allergies Allergy Verified 08/14/24 05:47 Family History Sister Bleeding disorder Cervical cancer Surgical History History of esophagogastroduodenoscopy (EGD) Hx of cholecystectomy Social History Smoking Status: Never smoker Electronic Cigarette Use: with nicotine alcohol intake: never Review of Systems (Anesthesia) ROS Narrative System reviewed and no additional complaints, except as documented.
--- NOTE | 2024-08-14 06:40 | PCM.HP.BLA ---
History and Physical Date of Admission: 08/14/24 BRIT HENDERSON, is a 39 F who presents to the office today for follow up. [facility] ED presentation 10.20.22 with epigastric and lower abdominal pain for a month with postprandial nausea without weight loss. Similar episode 2 years prior with associated weight loss. 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 ? Biochemical workup CBC, CMP, lipase, urine, without pertinent abnormalities. ? CT abd/pel s/p cholecystectomy; mild hepatomegaly without mass; nodular density of right lung breast. *BGI established .. 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 Additionally, has current difficulty with varying stools: historically has loose/soft stools that has recently become more constipation with difficulty with initiation and harder stools. Nausea, EGD. Hepatomegaly, Biochemical workup and imaging. Biochemical workup CBC, ESR, CMP, LDH, Ferritin, A1c, hepatitis, HIV, AMA, ASM, PHILIPPE comp, ANCA, PERICO, AFP, haptoglobin, ammonia, coagulation without pertinent abnormality. CRP H4.72, ceruloplasmin H40.7, Copper H162? LFT AST L13-ALT 30-AP 55 ? US and elastography 12.08.22 hepatomegaly 20cm with fatty infiltration stiffness measures 6.4kPa ? Gastric emptying study 12.12.22 31.73 minutes (12-56) ? EGD 01.30.23 EOE mucosal changes; LA grade A reflux esophagitis; small hiatal hernia; erythematous gastric body; chronic duodenitis. H.Pylori negative. OV 5.1.23 with ongoing nausea and stomach pain without identifiable trigger or alleviating factor; notes that she feels the need to clear her throat frequently and feels like she will have emesis with this. BM fluctuate between constipation with straining with soft/normal stool approximately 3-4/week with loose stools other days of the week 1-2/day. ? Biochemical gastrin, RASDipak WNL Contact 02.27.23 with results. Reports ongoing abdominal pain and frequent clearing of her throat. ? GET 03.09.23 78.45 minutes (12-56) Contact, portal 03.14.23 with results. Start gastroparesis diet and management of stress/anxiety. [facility] ED 8.12.15 with depression that has been worsening; establishing with counseling/psychiatry later this month. No suicidal thoughts but wishes she would disappear. Lamictal earlier this year but prescription has run out and has not had anyone to prescribe it; prescription sent. [facility] ED 06.16.23 with epigastric pain. GI Cocktail provided with improvement of symptoms; likely gastritis, has not been taking her PPI. OV .. feels that she continues to have dysphagia with throat clearing a couple times a week. Continues to have nausea and dry heaving. Seeing psychiatry and counseling services; feels her mental health is fair. She has not utilized the gastroparesis diet. Eating 2-3 times a day. Start levsin. ? EGD 08.09.23 EOE concern, path neg; irregular Zline; hiatal hernia; gastritis; duodenitis, metaplasia+. H.pylori neg. Contact 08.28.23 with results. Continue PPI and levsin use. GET results discussed with recommendation to use gastroparesis diet, still has information OV 3.8.24 OV 8.30.24 pt reports that she has noticed some difficulty swallowing recently and that she feels like food and liquids are getting stuck. Pt reports continued alternating bowel movements. Pt reports aching pain on the sides of her abdomen that comes and goes. Pt states that she is not very consistent with taking her pantoprazole. Has recently noticed that she is bruising easier and that she has some new dark spots on her forehead and is unsure what they are from. ROS Const Constitutional: Positive for fatigue and weight change (weight gain); No fever(s) ENT ENT: Positive for difficulty swallowing Gastro GI: Positive for abdominal pain, heartburn, difficulty swallowing and nausea/dyspepsia; No belching, bloating, change in bowel habits, change in stool character, coffee ground emesis, constipation, cramping, diarrhea, feeling full early, excessive flatus, incontinent of stools, Vomiting blood/hematemesis, Blood in stool, loose stools, Black,tarry stools, pain with swallowing, vomiting or other Musc Musculoskeletal: Positive for joint pain, back pain and sciatica Skin Skin: No yellowing of the eye or itchy eyes Psych Psychiatric: Positive for anxiety, No depression, Positive for hyperactivity and Positive for inattentiveness Endo Endocrine: Positive for fatigue and weight change (weight gain) Aller/Imm Allergy/Immunologic: No itchy eyes Tiago/Lymp Hematologic/Lymphatic: Positive for easy bruising; No easy bleeding Exam Const General: cooperative and comfortable Nutritional Appearance: average body habitus and well nourished HENMT Head: normal to inspection Ears: hearing grossly normal bilaterally Nose: external nose normal Face and sinus: normal facial exam Mouth: oral mucosae normal Throat: posterior oropharynx normal Eyes General: appearance normal, both eyes and all related structures Neck Neck: normal visual inspection Chest Chest palpation & inspection: normal inspection of the chest and normal palpation of entire chest wall Resp Effort & Inspection: normal respiratory effort Auscultation: Bilateral: Clear to Auscultation Cardio Palpation: normal PMI Rate: regular rate Rhythm: regular rhythm GI Inspection: normal to inspection Auscultation: normal bowel sounds Percussion: normal to percussion Palpation: no hepatosplenomegaly Skin General: no rashes or lesions noted Neuro General: patient alert Extrem General: normal to inspection Psych Affect: normal affect Assessment and Plan Assessment and Plan (1) Hiatal hernia: Status: Chronic Plan: I think she will need underlying gastric emptying study and weight loss what I think will significantly contribute to her needing to possibly think about doing anything surgical for her hiatal hernia. (2) Eosinophilic esophagitis: Status: Chronic Plan: We discussed the 2 types of eosinophilic esophagitis being GERD related and not GERD related. We will get a RAST study to see if there is a food allergy associated with it. However in the setting of a dilated lower esophageal sphincter, hiatal hernia and possible gastroparesis I think this is mostly an acid issue. Therefore we will put her on pantoprazole 40 mg p.o. twice daily. She is still having esophageal dysphagia so I think we need to perform an upper endoscopy with dilation. (3) Hepatomegaly: Status: Chronic Plan: Hepatomegaly with underlying nonalcoholic fatty liver disease. She does not drink any alcohol. She underwent a FibroScan that did show an F2 with a Medicare score of 6.8. That is an F2. We discussed ways in order to decrease her fibrosis score. I would not put her on medicines at this time. We discussed weight loss and other modalities in order to decrease the liver size. We had discussed GLP-1 inhibitors such as semaglutide and Actos which has been proven to decrease the mild liver inflammation and 5 study subsequently. We will address that in the future after we have her work-up completed. (4) Nausea: Status: Chronic Plan: I think her nausea is multifactorial. She does vape what I think contributes to a lot of her symptoms. I think this is symptomatic and the patient that has excess gastric acid production as seen on upper endoscopy in the setting of a hiatal hernia and dilated lower esophageal sphincter. We talked about abstinence or decrease the amount of vaping that she does in order to help her underlying issues that involve her upper GI tract. We will see if she has any underlying gastroparesis or motility disorders of the upper GI tract. (5) Alternating constipation and diarrhea: Status: Chronic Plan: I think her alternating diarrhea and constipation is secondary to accelerated gastrocolic reflex and the setting of bile induced reflux esophagitis. Her gastric emptying study that shows that she does have mild gastroparesis. I will put her on duloxetine 20 mg a day for her alternating diarrhea and constipation. Orders: Orders ABD Limited w/ Elastography Today K20.0 - Eosinophilic esophagitis, K44.9 - Diaphragmatic hernia without obstruction or gangrene, R16.0 - Hepatomegaly, not elsewhere classified Partial Thromboplast Time Today K44.9 - Diaphragmatic hernia without obstruction or gangrene Prothrombin Time w/INR Today K44.9 - Diaphragmatic hernia without obstruction or gangrene CBC W/Diff, Automated Today K44.9 - Diaphragmatic hernia without obstruction or gangrene Fibrinogen Today K44.9 - Diaphragmatic hernia without obstruction or gangrene D-Dimer Quantitative (DVT/PE) Today K44.9 - Diaphragmatic hernia without obstruction or gangrene Miscellaneous Lab Procedure Today K44.9 - Diaphragmatic hernia without obstruction or gangrene I have examined the patient and the H&P has been reviewed. There are no clinical changes since date of exam.
--- NOTE | 2024-08-14 07:05 | PCM.POST.ANE ---
Anesthesia: Postop Eval I Current Vital Signs Temperature: 97 F Pulse Rate: 97 Blood Pressure: 142/89 Respiratory Rate: 16 Pulse Ox: 99 Oxygen Delivery Method: Room Air Assessment Airway patent: Yes Spontaneous unlabored respirations: Yes Mental status: Awake nausea: No Vomiting: No Anesthesia Complication: No Fluid Hydration Crystalloid volume administer (ml): 30 Total IV fluid infused: 30 Progress Note Anesthesia document: Postop Eval 1 completed: Yes
--- NOTE | 2024-08-14 07:08 | OP.CCLET_ITS ---
08/14/2024 Brook Gaviria [address] [place] [address] Re : Upper GI endoscopy procedure for Michelle Decker Dear Dr. Gaviria This procedure was performed on Wednesday, August 14, 2024. My impressions and recommendations are as follows: Impressions : - Z-line irregular, 39 cm from the incisors. Biopsied. - Benign-appearing esophageal stenosis. Dilated. - Bile gastritis. Biopsied. - Bile duodenitis. Biopsied. - A lot of retained bile in the patient's stomach consistent with a new diagnosis of gastroparesis Recommendations : - Discharge patient to home. - Resume previous diet. - Continue present medications. - Await pathology results. - Try these lifestyle changes to ease your symptoms: Eat smaller meals Eat more fiber Avoid problem foods and drinks Limit or avoid alcohol Lose weight Raise the head of your bed Stay upright after eating Stop smoking Eat dinner earlier Practice relaxation techniques -You should also avoid foods like: Caffeinated and carbonated drinks Chocolate [place] foods and juices Vinegar-based dressings Onions Tomato-based foods Spicy foods Mint My findings are described in the full procedure note, which is enclosed. If I can be of further assistance, please feel free to contact me at . Sincerely, Adilson Friend, 08/14/2024 7:07:41 AM This report has been signed electronically.
--- NOTE | 2024-08-14 07:08 | OP.EGD_ITS ---
Patient Name: Michelle Decker Procedure Date: 08/14/2024 6:10 AM Date of : 1985 Age: 39 Procedure: Upper GI endoscopy Indications: Epigastric abdominal pain Providers: Adilson Cobb DO Referring MD: Brook Gaviria Medicines: Monitored Anesthesia Care Patient Profile: This is a 39 year old female. Refer to note in patient chart for documentation of history and physical. Patient has symptoms of dysphagia with both liquids and solids. Complications: No immediate complications. Procedure: Pre-Anesthesia Assessment: - Prior to the procedure, a History and Physical was performed, and patient medications and allergies were reviewed. The patient is competent. The risks and benefits of the procedure and the sedation options and risks were discussed with the patient. All questions were answered and informed consent was obtained. Patient identification and proposed procedure were verified by the physician. Mental Status Examination: alert and oriented. Airway Examination: normal oropharyngeal airway and neck mobility. Respiratory Examination: clear to auscultation. CV Examination: normal. Prophylactic Antibiotics: The patient does not require prophylactic antibiotics. Prior Anticoagulants: The patient has taken no anticoagulant or antiplatelet agents except for NSAID medication. ASA Grade Assessment: II - A patient with mild systemic disease. After reviewing the risks and benefits, the patient was deemed in satisfactory condition to undergo the procedure. The anesthesia plan was to use moderate sedation / analgesia (conscious sedation). Immediately prior to administration of medications, the patient was re-assessed for adequacy to receive sedatives. The heart rate, respiratory rate, oxygen saturations, blood pressure, adequacy of pulmonary ventilation, and response to care were monitored throughout the procedure. The physical status of the patient was re-assessed after the procedure. After obtaining informed consent, the endoscope was passed under direct vision. Throughout the procedure, the patient's blood pressure, pulse, and oxygen saturations were monitored continuously. The gastroscope was introduced through the mouth, and advanced to the second part of duodenum. The upper GI endoscopy was accomplished without difficulty. The patient tolerated the procedure well. Scope In: 6:50:40 AM Scope Out: 6:57:38 AM Total Procedure Duration Time 0 hours 6 minutes 58 seconds Findings: The Z-line was irregular and was found 39 cm from the incisors. Biopsies were taken with a cold forceps for histology. Verification of patient identification for the specimen was done. Estimated blood loss was minimal. One benign-appearing, intrinsic mild stenosis was found in the upper third of the esophagus. The stenosis was traversed. A guidewire was placed and the scope was withdrawn. Dilation was performed with a Savary dilator with no resistance at 60 Fr. The dilation site was examined and showed moderate mucosal disruption. Estimated blood loss was minimal. Patchy mild inflammation characterized by congestion (edema) and erythema was found in the gastric body. Biopsies were taken with a cold forceps for histology. Verification of patient identification for the specimen was done. Estimated blood loss was minimal. Patchy moderate inflammation characterized by congestion (edema), erosions and erythema was found in the duodenal bulb and in the first portion of the duodenum. Biopsies were taken with a cold forceps for histology. Verification of patient identification for the specimen was done. Estimated blood loss was minimal. Impression: - Z-line irregular, 39 cm from the incisors. Biopsied. - Benign-appearing esophageal stenosis. Dilated. - Bile gastritis. Biopsied. - Bile duodenitis. Biopsied. - A lot of retained bile in the patient's stomach consistent with a new diagnosis of gastroparesis Recommendation: - Discharge patient to home. - Resume previous diet. - Continue present medications. - Await pathology results. - Try these lifestyle changes to ease your symptoms: Eat smaller meals Eat more fiber Avoid problem foods and drinks Limit or avoid alcohol Lose weight Raise the head of your bed Stay upright after eating Stop smoking Eat dinner earlier Practice relaxation techniques -You should also avoid foods like: Caffeinated and carbonated drinks Chocolate [place] foods and juices Vinegar-based dressings Onions Tomato-based foods Spicy foods Mint Procedure Code(s): --- Professional --- 89938, Esophagogastroduodenoscopy, flexible, transoral; with insertion of guide wire followed by passage of dilator(s) through esophagus over guide wire 53797, 59,51, Esophagogastroduodenoscopy, flexible, transoral; with biopsy, single or multiple CPT copyright 2021 [employer]. All rights reserved. The codes documented in this report are preliminary and upon buttonhole machine operator review may be revised to meet current compliance requirements. Adilson Cobb DO 08/14/2024 7:07:41 AM This report has been signed electronically. Number of Addenda: 0 Note Initiated On: 08/14/2024 6:10 AM
--- NOTE | 2024-08-14 08:05 | PCM.POSTANE2 ---
Anesthesia Postop Eval I Sum Postop Eval Completion status Anesthesia document: Postop Eval 1 completed: Yes Anesthesia Postop Eval I Summary Anesthesia Postop Eval I Summary: Anesthesia Postop Eval I: Assessment Summary Airway patent Yes 08/14/24 07:05 [email or web address] Spontaneous unlabored Yes 08/14/24 07:05 [email or web address] respirations Mental status Awake 08/14/24 07:05 [email or web address] nausea No 08/14/24 07:05 [email or web address] Vomiting No 08/14/24 07:05 [email or web address] Anesthesia Postop Eval I: Fluid Summary Crystalloid volume administer 30 08/14/24 07:05 [email or web address] (ml) Colloids volume administered ( ml) Blood Product volume administered (ml) Total IV fluid infused 30 08/14/24 07:05 [email or web address] Anesthesia Postop Eval I: Summary Notes Anesthesia Complication No 08/14/24 07:05 [email or web address] Anesthesia Complication Comment: Post-operative progress note Anesthesia: Postop Eval II Evaluation Mental status: Awake Pain Level: 0 nausea: No Vomiting: No
== END 2024-08-14 07:38 | disposition home or self-care (01) ==
LOC: EN 05:11 → AC 05:13
PROVIDERS: Anesthesiology; PCP Internal Medicine; Referring Provider Internal Medicine; Visit Provider Internal Medicine Gastroenterology
PROC: 0DJ08ZZ Inspection of Upper Intestinal Tract, Via Natural or Artificial Opening Endoscopic (ICD-10-PCS; CPT 43235; principal; 2024-08-14 06:25)
DX: K44.9 Diaphragmatic hernia without obstruction or gangrene (principal); F31.9 Bipolar disorder, unspecified; K29.80 Duodenitis without bleeding; K29.70 Gastritis, unspecified, without bleeding; K22.2 Esophageal obstruction; K21.9 Gastro-esophageal reflux disease without esophagitis; K63.89 Other specified diseases of intestine; Z79.899 Other long term (current) drug therapy; Z87.891 Personal history of nicotine dependence
CPT/HCPCS: 43248; 43239; 81025; 88305; 88312; 88342; A4216; C1769; J2405

== ENCOUNTER 2024-12-19 11:53 | Emergency (ER) | payer MEDICAID, SELFPAY ==
[2024-12-19 11:54] VITALS: BP 135/83; PULSE 89; RESP 16; TEMP 36.9; O2SAT 99; BMI 39.6
--- NOTE | 2024-12-19 12:48 | EDS_ITS ---
HPI HPI - URI History of Present Illness Chief Complaint: Cold Sx PFSH PFSH Medical History Hx of ectopic Post traumatic stress disorder (PTSD) Migraine headache Difficulty swallowing History of hiatal hernia Shortness of breath on exertion Non-smoker GERD (gastroesophageal reflux disease) Bipolar disorder Fatty liver Home Medications ?Medication ?Instructions ?Recorded ?Last Taken ?Type pantoprazole 20 mg tablet,delayed 20 mg PO BID 30 days #60 tabs 12/29/23 Unknown Rx release (Protonix) Held on 08/12/24. Instructions: HOLD FOR SCOPE duloxetine 20 mg capsule,delayed 20 mg PO HS #30 caps 06/21/24 Unknown Rx release Held on 08/12/24. Instructions: NOT WORKING Allergy/AdvReac Type Severity Reaction Status Date / Time No Known Allergies Allergy Verified 12/19/24 11:56 Family History Sister Bleeding disorder Cervical cancer Surgical History History of esophagogastroduodenoscopy (EGD) Hx of cholecystectomy Social History Smoking Status: Never smoker Electronic Cigarette Use: with nicotine alcohol intake: never EXAM Physical Exam Const Vital Signs: 12/19/24 11:54 Temperature 98.4 F Temperature Source Temporal Pulse Rate 89 Respiratory Rate 16 Blood Pressure 135/83 H Blood Pressure Mean 100 Pulse Ox 99 Oxygen Delivery Method Room Air Discharge Plan Triage Chief Complaint: Cold Sx ED Provider: Kai Lopes Dx/Rx/DC Orders Prescriptions: No Action pantoprazole [Protonix] 20 mg tablet,delayed release (DR/EC) 20 mg PO BID 30 Days Qty: 60 5RF duloxetine 20 mg capsule,delayed release(DR/EC) 20 mg PO HS Qty: 30 2RF Primary Care Provider: Brook Gaviria Referrals: Brook Gaviria MD [Primary Care Provider] - Print Language: Malian
--- NOTE | 2024-12-19 12:48 | EX.ED.VIS.UR ---
HPI HPI - URI History of Present Illness Chief Complaint: Cold Sx Informant: patient Onset/Context/Timing Onset: Days (2) Context: Gradual Onset Timing: Continuous Quality: Heaviness Location: Chest Associated Symptoms Associated Symptoms: Positive for Headache, Sinus Pressure, Chest Pain and Productive Cough; Negative for Nasal Congestion, Myalgias, Nausea, Vomiting, Diarrhea, Shortness of Breath, Nonproductive cough or Hemoptysis Narrative Narrative: Patient presents with cough and fevers that have been getting worse over the past 2 days. Patient states her fever was up to 103.2 at home. Patient admits to a cough but denies any sputum production. Patient states she feels heaviness in her chest. Patient states nothing makes her symptoms worse and nothing makes it better. Patient admits to headache and sinus pressure. Patient states she is coughing up some yellow sputum. Patient denies any nausea or vomiting. ROS ROS ED Constitutional Constitutional ED: Reports fever(s); Denies chills Eyes Eyes: Reports blurry vision; Denies change in vision ENT ENT ED: Denies rhinorrhea or sore throat Cardiovascular Cardiovascular: Denies chest pain or palpitations Respiratory/Chest Respiratory/Chest: Reports cough; Denies dyspnea Gastrointestinal Gastrointestinal: Denies nausea or vomiting Genitourinary Genitourinary ED: Reports urinary frequency; Denies dysuria or hematuria Musculoskeletal Musculoskeletal: Denies back pain or neck pain Integumentary Denies abscess or rash Neurologic Neurologic: Reports headache(s); Denies weakness Allergic/Immunologic Allergic/Immunologic ED: Denies mouth swelling or urticaria PFSH PFSH Medical History Hx of ectopic Post traumatic stress disorder (PTSD) Migraine headache Difficulty swallowing History of hiatal hernia Shortness of breath on exertion Non-smoker GERD (gastroesophageal reflux disease) Bipolar disorder Fatty liver Allergy/AdvReac Type Severity Reaction Status Date / Time No Known Allergies Allergy Verified 12/19/24 11:56 Family History Sister Bleeding disorder Cervical cancer Surgical History History of esophagogastroduodenoscopy (EGD) Hx of cholecystectomy Social History Smoking Status: Never smoker Electronic Cigarette Use: with nicotine alcohol intake: never EXAM Physical Exam Const Vital Signs: 12/19/24 11:54 Temperature 98.4 F Temperature Source Temporal Pulse Rate 89 Respiratory Rate 16 Blood Pressure 135/83 H Blood Pressure Mean 100 Pulse Ox 99 Oxygen Delivery Method Room Air Positive well nourished and well developed General Appearance ED: well developed and NAD HEENT Reports moist mucous membranes normocephalic Throat: posterior oropharynx normal Neck supple, no meningeal signs and no JVD Resp normal respiratory effort and clear to auscultation bilaterally Cardio Rate: regular rate Rhythm: regular rhythm GI non-tender and non-distended Palpation: soft Neuro oriented x3, CN's II-XII intact bilaterally and no sensory deficits noted Sensorium / Orientation: alert Motor Exam: strength 5/5 throughout MDM MDM MDM Narrative Medical decision making narrative: Differential diagnosis includes influenza, COVID, and RSV. COVID-19, influenza, and RSV PCR will be obtained to assess for viral illness. Lab Data Lab results narrative: COVID-19 PCR was reviewed and was negative. Influenza PCR was reviewed and was positive for influenza A and negative for influenza B. RSV PCR was reviewed and was negative. Treatment and Re-Evaluation Narrative: Patient was advised of her findings. Patient is outside the window for Tamiflu. Patient was given a note for work. Patient was instructed to take Tylenol or ibuprofen as needed for any fevers or pain. Patient was instructed to drink plenty of fluids. Patient was instructed to follow-up with her primary care physician in 5 to 7 days. Discharge Plan Triage Chief Complaint: Cold Sx ED Provider: Kai Lopes Dx/Rx/DC Orders Clinical Impression: Influenza A, Elevated blood pressure reading without diagnosis of hypertension Instructions: ED Influenza (Adult) Prescriptions: No Action pantoprazole [Protonix] 20 mg tablet,delayed release (DR/EC) 20 mg PO BID 30 Days Qty: 60 5RF duloxetine 20 mg capsule,delayed release(DR/EC) 20 mg PO HS Qty: 30 2RF Stand Alone Forms: ED Work / School Excuse Primary Care Provider: Brook Gaviria Referrals: Brook Gaviria MD [Primary Care Provider] - 5-7 Days Print Language: Mosotho
== END 2024-12-19 13:57 | disposition home or self-care (01) ==
PROVIDERS: Emergency Provider Emergency Medicine; PCP Internal Medicine; Visit Provider Emergency Medicine
DX: J10.1 Influenza due to other identified influenza virus with other respiratory manifestations (principal); F31.9 Bipolar disorder, unspecified; R03.0 Elevated blood-pressure reading, without diagnosis of hypertension; F17.290 Nicotine dependence, other tobacco product, uncomplicated
CPT/HCPCS: 87631; 99282

== ENCOUNTER 2025-04-24 08:33 | Day surgery (SDC) | payer MEDICAID, SELFPAY ==
[2025-04-24] VITALS (8 sets, daily range): BP systolic 106–123; BP diastolic 64–74; PULSE 65–85; RESP 14–18; TEMP 36.1–36.9; O2SAT 100; BMI 39.4
[2025-04-24 09:46] LABS: Hematocrit 41.4 % (37-47); Hemoglobin 13.8 g/dL (12.0-15.0); Mean Corp Hgb Conc 33.3 g/dL (32-36); Mean Corpuscular Volume 90.4 fL (81-99); Mean Platelet Vol. 10.2 fl (6.2-12.0); Platelet Count 273 K/mm3 (150-450); RBC Distribution Width CV 12.7 % (11.6-14.6); RBC Distribution Width SD 41.8 fl (35.1-43.9); Red Blood Count 4.58 M/mm3 (4.2-5.4); White Blood Count 7.1 K/mm3 (4.4-11.0)
[2025-04-24] MEDS: Lactated Ringers 1,000 ML 15 ML IV (09:51)
[2025-04-24] MEDS: SODIUM CHLORIDE IV (09:54)
[2025-04-24] MEDS: DOXYCYCLINE IV (09:54)
[2025-04-24] MEDS: [UNRECOGNIZED DRUG - OTHER] IV (09:54)
--- NOTE | 2025-04-24 10:13 | PCM.PRE.AN2 ---
ASA Classification* ASA Classification ASA Classification: 3 Assessment & Plan Anesthesia* Anesthesia Assessment Anesthesia Assessment: Discussed sedation and/or anesthesia options, risks, benefits, and alternatives with patient/parents/legal guardian/POA. Questions invited. The patient/parents/legal guardian/POA seems to understand and agrees to proceed with anesthesia plan. Reviewed the physical assessment, medical history, allergy history and patient home medications list prior to surgery/procedure/anesthetic and documented any changes. Performed airway and anesthesia risk assessments. Anesthesia Type Anesthesia Type: MAC History Source History Obtained from:: Patient and Chart Anesthesia Focused Assessment* Temperature: 98.4 F Pulse Rate: 76 Blood Pressure: 106/74 Respiratory Rate: 18 Pulse Ox: 100 Oxygen Delivery Method: Room Air Airway Assessment Mouth opens: >3 cm Mallampati Score: I Teeth Condition: Intact Neck Range of motion (ROM): Full ROM Labs Anesthesia Preop lab: CBC WBC 7.1 K/mm3 (4.4-11.0) 04/24/25 09:17 04/24/25 RBC 4.58 M/mm3 (4.2-5.4) 04/24/25 09:17 04/24/25 Hgb 13.8 g/dL (12.0-15.0) 04/24/25 09:17 04/24/25 Hct 41.4 % (37-47) 04/24/25 09:17 04/24/25 Plt Count 273 K/mm3 (150-450) 04/24/25 09:17 04/24/25 CHEMISTRY Potassium 3.6 mmol/L (3.5-5.1) 12/29/22 00:10 12/29/22 Sodium 141 mmol/L (136-145) 12/29/22 00:10 12/29/22 BUN 14 mg/dL (7-18) 12/29/22 00:10 12/29/22 Creatinine 0.84 mg/dL (0.55-1.02) 12/29/22 00:10 12/29/22 Glucose 95 mg/dL (74-106) 12/29/22 00:10 12/29/22 COAG PT 13.6 SECONDS (11.7-14.9) 06/21/24 16:01 06/21/24 HCG, Quant 403 mIU/mL (1-3) H 11/12/23 22:41 11/12/23 Urine Test Negative Negative 08/14/24 05:30 08/14/24 Pre-Assessment Diagnosis/Proposed Procedure Planned Operative Procedure(s): SUCTION D&C Anesthesia History 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 When Was Last Pacemaker Check QUESTION #4 FULL TEXT: You/Your Family Experience fever (hyperthermia) with Anesthesia Last Oral Intake Last Oral intake: Last Oral Intake NPO since 00:00 04/24/25 09:47 Meds taken in AM with sips of No 04/24/25 09:47 water? Meds patient instructed to take am of surgery PONV PONV - supervisor maintenance and custodians: PONV - supervisor maintenance and custodians Female Yes 04/23/25 08:56 HX of Motion Sickness No 04/23/25 08:56 HX of N/V After Surgery No 04/23/25 08:56 Non-Smoker Yes 04/23/25 08:56 Duration of Surgery greater No 04/23/25 08:56 than 60 minutes Number of Risk Factors 2 04/23/25 08:56 PONV Score Moderate Risk 04/23/25 08:56 Height & Weight Height & Weight: Anesthesia: Height & Weight Height 5 ft 3 in 04/24/25 09:47 Weight: 100.9 kg 04/24/25 09:47 Body Mass Index (BMI) 39.4 04/24/25 09:47 Respiratory Assessment Respiratory Assessment - supervisor maintenance and custodians: Respiratory Tract Infection Hx - supervisor maintenance and custodians Hx Respiratory Tract Infection No 04/23/25 08:56 STOP Sleep Apnea STOP Sleep Apnea - supervisor maintenance and custodians: STOP Sleep Apnea - supervisor maintenance and custodians Hx Hypertension No 04/23/25 08:56 Hx Sleep Apnea No 04/23/25 08:56 CPAP BIPAP Do you snore loudly (louder No 04/23/25 08:56 than talking or can be heard Do you often feel tired/ No 04/23/25 08:56 fatigued/ sleepy during daytime? Has anyone observed you stop No 04/23/25 08:56 breathing during sleep? STOP Results Negative 04/23/25 08:56 QUESTION #5 FULL TEXT : Do you snore loudly (louder than talking or can be heard through closed doors)? 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 Specify any problems Hx of Preganancy in last 3 Yes 04/23/25 08:56 Months Nurse Filling Out Transfusion VCHRISTIN 04/23/25 08:56 & Questions: Date: 04/23/25 04/23/25 08:56 Time: 08:57 04/23/25 08:56 Patient unable to answer at this time (ie. confused, unrespo /Reproduction History /Reproductive History - supervisor maintenance and custodians: /Reproductive Hx- supervisor maintenance and custodians Hx Now Yes 04/23/25 08:56 Gestational Age (in weeks): EDC: Hx Hx Para Hx Section SAB No 04/23/25 08:56 Active Medications Active Medications: Current Medications Generic Name Dose Route Start Last Admin Trade Name Freq PRN Reason Stop Dose Admin Lactated Ringer's 1,000 mls @ 15 mls/hr 04/24/25 08:45 04/24/25 09:51 IV 15 mls/hr .Q48H NADIYA Administration Doxycycline Hyclate 100 mg/ 260 mls @ 250 mls/hr 04/24/25 09:30 04/24/25 09:54 Sodium Chloride IV 04/24/25 10:32 250 mls/hr PREOP ONE Administration PFSH Medical History Hx of ectopic Post traumatic stress disorder (PTSD) Migraine headache Difficulty swallowing History of hiatal hernia Shortness of breath on exertion Non-smoker GERD (gastroesophageal reflux disease) Bipolar disorder Fatty liver Home Medications ?Medication ?Instructions ?Recorded ?Last Taken ?Type vit no.95-ferrous 1 tab PO DAILY 04/23/25 Unknown History fumarate 28 mg-folic acid 800 mcg tablet () Allergy/AdvReac Type Severity Reaction Status Date / Time No Known Allergies Allergy Verified 04/24/25 09:46 Family History Sister Bleeding disorder Cervical cancer Surgical History (Updated 04/23/25 @ 08:56 by Sherron Kramer) History of esophagogastroduodenoscopy (EGD) Hx of cholecystectomy Social History Smoking Status: Never smoker Electronic Cigarette Use: with nicotine alcohol intake: never Review of Systems (Anesthesia) ROS Narrative System reviewed and no additional complaints, except as documented. Physical Exam Const alert, oriented x3 and average body habitus Resp normal respiratory effort, normal air movement and clear to auscultation bilaterally Cardio regular rate, regular rhythm and no murmurs Neuro oriented x3 and moves all extremities
--- NOTE | 2025-04-24 10:15 | POC_PTH ---
PATIENT: BRIT HENDERSON [place] [facility] [place][id number] AGE/SX: 39/F ROOM: RE04/24/[address]: Dr. Joleen Sloan DO : 1985 BED: DIS: 04/24/2025 SPEC #: [id number] RECD: 04/24/25 12:00 STATUS: ROSHAN SAUL #: [id number] XIMENA: 04/24/25 10:[address]: Joleen Sloan DEPT: SURGICAL PATHOLOGY RECD BY: Yung Melo ENTERED: 04/24/25 15:43 SP TYPE: PROD CONC OTHR DR: Dr. Brook Gaviria MD Tissues: A - Product of conception, NOS Procedures: Surgery Specimen Level IV HEADER OPERATION: Dilation and curettage, suction PRE-OP DIAGNOSIS: Missed TISSUE SUBMITTED: A- Products of conception MICROSCOPIC DIAGNOSIS A. Soft tissue, products of conception, dilation and curettage: - Immature chorionic villi and decidua consistent with products of conception. MICROSCOPIC DESCRIPTION Slides are reviewed. GROSS DESCRIPTION A. Received in formalin labeled with the patient's name and date of . Designated as products of conception is a 19.6 g, 6.0 x 5.2 x 0.5 cm aggregate of avalos-pink to red soft tissue fragments ,blood clot and minimal papilliferous tissue fragments (suspicious for chorionic villi). parts are not present. Travelift Operator sections are submitted in 2 cassettes. MN 04/24/2025 CPT:44683
[2025-04-24] MEDS: Lidocaine 1% /Epi 1:100 (20ml) 20 ML Vial (11:35)
--- NOTE | 2025-04-24 11:42 | PCM.DC ---
Discharge Instructions Diet Discharge Diet: No restrictions DC O2, CPAP, BIPAP needs Home O2 Discharge instructions: No Dressing / Incision Discharge Activity: May Not Drive (for 24 hours after surgery) and May Not Shower (for 24 hours after surgery) May resume sexual activity in: 1 week (no tampons, intercourse, or soaking in water) Weight Bearing Status: Weight bearing as tolerated Lifting Restrictions: none Dressing / Incision Call your doctor if you observe: Fever of 101 or Higher, Using more than 1 pad per hour, Shortness of breath, Dizziness, Chest pain, Increased palpitations (irregular heartbeat), Calf discomfort and Uncontrolled pain Follow Up Care Please Follow Up With: Joleen Sloan DO When: 1-2 weeks post op Test Results: Test results from this visit will be discussed in further detail at your follow-up appointment, if applicable. Discharge Plan Admission Primary Reason for Your Visit: surgery Attending Provider: Joleen Sloan Primary Care Provider: Brook Gaviria Instructions Patient Instructions: Dilation and Curettage Print Language: Citizen Of [place] Discharge Orders/Prescriptions Prescriptions: No Action PNV cmb#95-ferrous fumarate-FA [] 28 mg iron- 800 mcg tablet 1 tab PO DAILY Referrals / Follow Up: Brook Gaviria MD [Primary Care Provider] - Disposition Disposition (needs filled in before D/C Order can be placed): Home, Self Care
--- NOTE | 2025-04-24 11:43 | OP.PCM_ITS ---
Problems Associated Problem List Diagnoses (1) Missed : Operative Report (Standard) Operative Information Date of Procedure: 04/24/25 Pre-Operative Diagnosis: Blighted ovum Post-Operative Diagnosis: As above Surgery/Procedure Performed: Suction D&C stone engraver: Yes Library Customer Service Clerk: Gabby Garcia MS4 Tasks completed by general office assistant: Retracting Type of Anesthesia: MAC RN Documented Start/Stop Times: Operation Date: 04/24/25 10:15 Case Time Into Pre-Op 04/24/25 08:43 Anesthesia Start 04/24/25 11:10 Into Room 04/24/25 11:10 Procedure Start 04/24/25 11:30 Procedure End 04/24/25 11:39 Procedure Start Time: 11:30 Procedure Stop Time: 11:39 Select all DRAINS/GRAFTS/IMPLANTS that apply: None Special Medications: None Estimated Blood Loss: 50 mL Fluids Replaced: See anesthesia record Specimen collected: Yes Description of specimen(s) removed: Products of conception Description of surgery: Discussed risk, benefits, alternatives to a suction D&C in the operating room with patient in preop and questions were answered. Discussed the Anora miscarriage testing in detail, and discussed cost and coverage with the patient. Discussed there might not be enough tissue for the miscarriage testing, and given a blighted ovum the results but may not be informative. The patient request to proceed with surgical management of a blighted ovum, and request to have Anora miscarriage testing done. She feels well counseled. The patient was taken to the operating room where MAC anesthesia was induced and found to be adequate. She was prepped and draped in the dorsal lithotomy position using yellowfin stirrups. A weighted speculum was placed in the vagina to expose the cervix. The anterior lip of the cervix was grasped with a single- tooth tenaculum. Local was infiltrated in the cervix. The cervix was serially dilated to accommodate a size 7 suction curettage. A size 7 suction curettage was inserted into the uterus to remove products of conception on several passes until no further products of conception were noted. Bleeding was scant. All instruments were removed from the vagina. A vaginal sweep was performed. Sponge and instrument and sharp counts were correct. The patient was taken to the cover in stable vision. Surgical Findings: Enlarged anteverted uterus palpates about 6-7 week in size Complications Complications: No Admit VTE Documentation VTE Present on Admission: No VTE Mechan Device Prophylaxis: SCD's
--- NOTE | 2025-04-24 11:54 | PCM.POST.ANE ---
Anesthesia: Postop Eval I Current Vital Signs Temperature: 97 F Pulse Rate: 65 Blood Pressure: 116/65 Respiratory Rate: 14 Pulse Ox: 100 Assessment Airway patent: Yes Spontaneous unlabored respirations: Yes nausea: No Vomiting: No Anesthesia Complication: No Fluid Hydration Crystalloid volume administer (ml): 1,000 Total IV fluid infused: 1,000 Progress Note Anesthesia document: Postop Eval 1 completed: Yes
--- NOTE | 2025-04-24 14:11 | POSTOPAN2_ITS ---
Anesthesia Postop Eval I Sum Postop Eval Completion status Anesthesia document: Postop Eval 1 completed: Yes Anesthesia Postop Eval I Summary Anesthesia Postop Eval I Summary: Anesthesia Postop Eval I: Assessment Summary Airway patent Yes 04/24/25 11:54 [email or web address] Spontaneous unlabored Yes 04/24/25 11:54 [email or web address] [email or web address] respirations Mental status nausea No 04/24/25 11:54 [email or web address] Vomiting No 04/24/25 11:54 [email or web address] [email or web address] Anesthesia Postop Eval I: Fluid Summary Crystalloid volume administer 1,000 04/24/25 11:54 [email or web address] (ml) Colloids volume administered ( ml) Blood Product volume administered (ml) Total IV fluid infused 1,000 04/24/25 11:54 [email or web address] Anesthesia Postop Eval I: Summary Notes Anesthesia Complication No 04/24/25 11:54 [email or web address] Anesthesia Complication Comment: Post-operative progress note Anesthesia: Postop Eval II Evaluation Mental status: Awake and Calm Pain Level: 2 nausea: No Vomiting: No Complications Anesthesia Complication: No
--- NOTE | 2025-04-24 14:11 | PCM.POSTANE2 ---
Anesthesia Postop Eval I Sum Postop Eval Completion status Anesthesia document: Postop Eval 1 completed: Yes Anesthesia Postop Eval I Summary Anesthesia Postop Eval I Summary: Anesthesia Postop Eval I: Assessment Summary Airway patent Yes 04/24/25 11:54 TOOL TURRET LATHE SET UP [email or web address] Spontaneous unlabored Yes 04/24/25 11:54 TOOL TURRET LATHE SET UP OPERATOR.[email or web address] respirations Mental status nausea No 04/24/25 11:54 TOOL TURRET LATHE SET UP [email or web address] Vomiting No 04/24/25 11:54 TOOL TURRET LATHE SET UP OPERATOR.[email or web address] Anesthesia Postop Eval I: Fluid Summary Crystalloid volume administer 1,000 04/24/25 11:54 TOOL TURRET LATHE SET UP OPERATOR.TNES (ml) Colloids volume administered ( ml) Blood Product volume administered (ml) Total IV fluid infused 1,000 04/24/25 11:54 TOOL TURRET LATHE SET UP OPERATOR.TNES Anesthesia Postop Eval I: Summary Notes Anesthesia Complication No 04/24/25 11:54 TOOL TURRET LATHE SET UP OPERATOR.[email or web address] Anesthesia Complication Comment: Post-operative progress note Anesthesia: Postop Eval II Evaluation Mental status: Awake and Calm Pain Level: 2 nausea: No Vomiting: No Complications Anesthesia Complication: No
[2025-05-08 07:48] LABS: Pathology Specimen OB SEE PATHOLOGY REPORT
== END 2025-04-24 12:43 | disposition home or self-care (01) ==
LOC: SDC 08:34 → AC 08:35
PROVIDERS: PCP Internal Medicine; Referring Provider Obstetrics & Gynecology; Visit Provider Obstetrics & Gynecology
PROC: (CPT 59821; principal; 2025-04-24 10:00)
DX: O02.1 Missed abortion (principal); Z87.891 Personal history of nicotine dependence
CPT/HCPCS: 59821; 01965; 85027; 86850; 86900; 86901; 88305

== ENCOUNTER 2025-07-28 17:55 | Emergency (ER) | payer MEDICAID, SELFPAY ==
[2025-07-28 17:56] VITALS: BP 119/88; PULSE 90; RESP 16; TEMP 37.3; O2SAT 98; BMI 39.8
--- NOTE | 2025-07-28 18:08 | ED.VIS.FEGU ---
HPI HPI - Female History of Present Illness Chief Complaint: Narrative Narrative: Patient is a 40-year-old female G5, P2 with a previous ectopic and miscarriage who presents to the emergency department with chief complaint of abdominal pain and positive test. States that she is unsure how far she is along she notes that she took a test yesterday was positive and took 1 again today was positive. States that she developed abdominal pain and she knows she has a history of ectopic she tried to call the [facility] and they did not return her call so therefore she came here to be further evaluated. Patient notes that last month she had some spotting with her period but did not have a full period which was abnormal for her and then she missed this month which prompted her to take a test. She states that she is not trying but also does not do anything to prevent currently. Denies any recent contacts. States that she does have a history of gastroparesis which also she notes that this messes with her bowels. States that she has had her gallbladder out in the past. PFSH PFSH Medical History Hx of ectopic Post traumatic stress disorder (PTSD) Migraine headache Difficulty swallowing History of hiatal hernia Shortness of breath on exertion Non-smoker GERD (gastroesophageal reflux disease) Bipolar disorder Fatty liver Home Medications ?Medication ?Instructions ?Recorded ?Last Taken ?Type vit no.95-ferrous 1 tab PO DAILY 04/23/25 Unknown History fumarate 28 mg-folic acid 800 mcg tablet () Allergy/AdvReac Type Severity Reaction Status Date / Time No Known Allergies Allergy Verified 07/28/25 17:56 Family History Sister Bleeding disorder Cervical cancer Surgical History History of esophagogastroduodenoscopy (EGD) Hx of cholecystectomy Social History Smoking Status: Current every day smoker tobacco type: e-cigarettes Electronic Cigarette Use: with nicotine alcohol intake: never ROS ROS ED ROS Narrative Constitutional: Denies any fevers, chills, headaches Abdomen: Complains of abdominal pain as noted above denies nausea vomiting : Denies any urinary symptoms denies any vaginal bleeding or spotting currently Neurological: Denies numbness, weakness, tingling Musculoskeletal: Denies back pain Skin: Denies any rashes or lesions EXAM Physical Exam Narrative Exam Narrative: General: Patient lying in bed rest comfortably did not appear to be acute distress Head: Atraumatic, normocephalic Eyes: PERRL bilaterally, EOMI bilaterally, no conjunctival injection noted Neck: Soft, supple, trachea midline Cardiovascular: Regular rate and rhythm Respiratory: Clear to auscultation bilaterally Abdomen: Soft, nondistended, diffuse tenderness to palpation no rebound or guarding on exam Extremities: +5/5 strength noted in the bilateral upper and lower extremities Neurological: Patient follow commands that she was at [facility] year is 2024 Skin: Warm, dry, intact no rashes or lesions noted Const Vital Signs: 07/28/25 17:56 07/28/25 19:55 07/28/25 21:00 Temperature 99.1 F Temperature Source Oral Pulse Rate 90 80 90 Respiratory Rate 16 16 Blood Pressure 119/88 H 129/71 H 111/78 Blood Pressure Mean 98 90 89 Pulse Ox 98 100 100 Oxygen Delivery Method Room Air Room Air Room Air 07/28/25 21:30 Temperature 99.1 F Temperature Source Pulse Rate 90 Respiratory Rate 16 Blood Pressure 111/78 Blood Pressure Mean 89 Pulse Ox 100 Oxygen Delivery Method MDM MDM MDM Narrative Medical decision making narrative: Patient is a 40-year-old female who presented to the emergency department the chief complaint of positive test with abdominal pain concern for ectopic . On the differential diagnose includes but not limited to viral gastroenteritis, constipation, ectopic , intrauterine , appendicitis. Once workup is obtained reviewed she will be reevaluated. . Patient CBC reviewed and showed no evidence leukocytosis white blood count normal at 8.1, he was stable 13.5, platelet count normal at 296. Patient sodium is normal at 140, potassium 3.4, creatinine 0.79. Patient's AST and ALT are 17 and 25 respectively. Patient's test was positive added on a hCG quantitative level which was noted to be 827. Patient urinalysis reviewed and showed no evidence of infection. Patient's ultrasound reviewed which showed no definitive evidence of ectopic although not entirely excluded no ovarian torsion noted. Corpus luteal cysts were noted on the left ovary. Endometrial stripe measuring 11 mm with scattered few tiny anechoic structures no intrauterine noted. Discussed case with on-call [facility] through [facility] who states that the patient can call the office tomorrow morning first thing and get an appointment for close follow-up. Patient was vies return with worsening symptoms or any concerns. She is agreeable to plan all course concerns answered she was discharged home in stable condition Lab Data Labs: Laboratory Results - last 24 hr 07/28/25 07/28/25 18:09 18:22 WBC 8.1 RBC 4.55 Hgb 13.5 Hct 40.6 MCV 89.2 MCH 29.7 MCHC 33.3 RDW Std Deviation 42.2 RDW Coeff of José 13.0 Plt Count 296 MPV 10.6 Immature Gran % (Auto) 0.200 Neut % (Auto) 61.5 Lymph % (Auto) 31.8 Peach % (Auto) 5.8 Eos % (Auto) 0.5 Baso % (Auto) 0.2 Absolute Neuts (auto) 4.9 Absolute Lymphs (auto) 2.56 Nucleated RBC % 0 Sodium 140 Potassium 3.4 Chloride 105 Carbon Dioxide 21.1 Anion Gap 14 BUN 5 Creatinine 0.79 Estim Creat Clear Calc 106.91 Est GFR (MDRD) Non-Af 96 BUN/Creatinine Ratio 6.5 L Glucose 97 Calcium 9.4 Total Bilirubin 0.31 AST 17 ALT 25 Alkaline Phosphatase 58 Total Protein 7.0 Albumin 4.3 Globulin 2.7 Albumin/Globulin Ratio 1.6 HCG, Quant 827 H Serum , Qual POSITIVE Urine Color Straw Urine Clarity Clear Urine pH 6.0 Ur Specific [place] 1.010 Urine Protein 15 H Urine Glucose (UA) Normal Urine Ketones Negative Urine Occult Blood 10 H Urine Nitrite Negative Urine Bilirubin Negative Urine Urobilinogen Normal Ur Leukocyte Esterase Negative Urine RBC 0-5 SEEN Urine WBC 0-5 SEEN Ur Squamous Epith Cells 0-5 SEEN Urine Bacteria 0 SEEN Urine Mucus 0 SEEN Radiography Diagnostic Testing: Clinical Impression(s) from Imaging Studies Obstetrics Ultrasound 07/28/25 19:12 IMPRESSION: No definite evidence of ectopic pregnancies although not entirely excluded. No ovarian torsion. Corpus luteal cysts within the left ovary as above. Endometrial stripe measures 11 mm with scattered few tiny anechoic structures. No intrauterine is noted. Reading Location: [facility] Discharge Plan Triage Chief Complaint: ED Provider: Dexter Sandoval Dx/Rx/DC Orders Clinical Impression: Abdominal pain, at early stage, Hx of ectopic Prescriptions: No Action PNV no.95-ferrous fumarate-FA [] 28 mg iron- 800 mcg tablet 1 tab PO DAILY Primary Care Provider: Brook Gaviria Referrals: Brook Gaviria MD [Primary Care Provider, Internal Medicine] Activity Restrictions/Additional Instructions: I called and spoke with your [facility] you need to call them first thing in the morning to get a follow-up appointment with them which is their recommendation. Return with worsening symptoms or other concerns. Your ultrasound did not show any evidence of ectopic here today. Print Language: Kyrgyz Disposition Disposition: Home, Self Care
[2025-07-28 18:30] LABS: Mucous, Urine 0 SEEN /hpf (<or=2+)
[2025-07-28 18:31] LABS: Hematocrit 40.6 % (37-47); Hemoglobin 13.5 g/dL (12.0-15.0); Immature Granulocytes Count 0.020 X10^3/uL (0.0-0.0); Mean Corp Hgb Conc 33.3 g/dL (32-36); Mean Corpuscular Volume 89.2 fL (81-99); Mean Platelet Vol. 10.6 fl (6.2-12.0); NRBC Flagged by Analyzer 0 % (0-5); Platelet Count 296 K/mm3 (150-450); RBC Distribution Width CV 13.0 % (11.6-14.6); RBC Distribution Width SD 42.2 fl (35.1-43.9); Red Blood Count 4.55 M/mm3 (4.2-5.4); White Blood Count 8.1 K/mm3 (4.4-11.0)
--- OUTSIDE RECORDS SUMMARY | 2025-07-28 19:00 | XMS RPT_ITS | CCD ---
Author Organization [facility] Care Team Providers Care Eyewear Consultant Name Role Phone ARMIN LEIGH DO Primary Care Physician Everette ROBERTS, Zheng Primary Care Provider [phone] Zheng Sharif MD Primary Care Provider Zheng Sharif MD Primary Care Provider [phone] ALMITA LOWERY Attending Unavailable ZHENG SHARIF Referring ZHENG Peralta Primary Care Unavailable MD Zheng Sharif Primary Care Provider Unavailab MD Zheng Reddy Referring Provider Unavailable FriendDr. De Anda Attending Provider [phone] MD Zheng Machuca Primary Care Provider Unava ilable MD Zheng Machuca Referring Provider Unavaila ble Friend, Dr. De Anda Attending Provider [phone] FriendDr. De Anda Other Provider [phone] Zheng Sharif Primary Care Provider Dr. Zheng Sharif Referring Provider Dr. Adilson Cobb Attending Provider [phone] MD Zheng Machuca Referring Provider Unavaila rachelle FriendDr. De Anda Attending Provider [phone] Dr. Zheng Sharif Primary Care Provider Dr. Zheng Sharif Primary Care Provider Dr. Zheng Sharif Referring Provider FriendDr. De Anda Attending Provider [phone] FriendDr. De Anda Other Provider Dr. Zheng Sharif Primary Care Provider Dr. Zheng Sharif Referring Provider Friend, Dr. De Anda Attending Provider Friend, Dr. 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 Boykin Attending Provider Tray ROBERTS, Dr. Boykin Referring Provider Everette ROBERTS, Dr. Doe Primary Care Provider Dr. Zheng Sharif MD Referring Provider Dr. Linda Sloan DO Attending Provider Dr. Linda Sloan DO Referring Provider DR ZHENG SHARIF MD Primary Care Physician MARITA BLACKMAN Referring Unavail able GANTA, ZHENG Primary Care Unavailable LEENA BECERRIL Attending Unavailable GANTA, ZHENG Primary Care Unavailable RANI YEN Attending Unavailable GANTA, ZHENG Primary Care Unavailable KAJAL BETHEA Attending Unavailable GANTA, ZHENG Primary Care Unavailable LINDA SLOAN Attending Unavailable GANTA, ZHENG Primary Care Unavailable GANTA, ZHENG Referring Unavailable GANTA, ZHENG Primary Care Unavailable MARITA BLACKMAN Attending Unavail able GANTA, ZHENG Primary Care Unavailable DR ZHENG SHARIF MD Primary Care Unavailmontana ONTIVEROS MD, BANDAR Guevara Attending Unavailable Ganta, Zheng Primary Care Unavailable Ganta, Zheng Referring Unavailable FriendAdilson Consulting Unavailable FriendAdilson Attending Unavailable Ganta, Zheng Primary Care Unavailable Kai Lopes Attending Unavailable Ganta, Zheng Primary Care Unavailable FriendAdilson Attending Unavailable Ganta, Zheng Primary Care Unavailable Ashutosh Feliz Attending Unavailable Ashutosh Feliz Referring Unavailable Ashutosh Feliz Attending Unavailable Friend, Adilson Referring Unavailable Ashutosh Feliz Attending Unavailable Donovan Sharifra Referring Unavailable Zheng Sharif Primary Care Unavailable Zheng Sharif Primary Care Unavailable Everette Zheng Referring Unavailable Friend, Adilson Attending Unavailable NathaliaLinda Referring Unavailable Zheng Sharif Primary Care Unavailable Linda Sloan Attending Unavailable Medications Current Medications Medication Drug Class(es) Dates Sig (Normalized) Sig (Original) [id number] 200 actuat albuterol 0.09 mg/actuat metered dose [...] as needed. cholecalciferol 0.125 mg oral tablet (11 sources) Vitamin D Start: 12-28-2022 take 125 ug by mouth once daily Cholecalciferol (Vitamin D3) Active 125 MCG PO DAILY December 28, 2022 1:00am Start: 11-04-2022 End: 09-08-2023 take 1 tablet by mouth once daily cholecalciferol (VITAMIN D-3) 5,000 unit tab Take 1 tablet by mouth once daily. 30 tablet 2 11/04/2022 09/08/2023 Discontinued (Discontinued by another Health Care Provider) Comment on above: Take 1 tablet by katie once daily. ibuprofen 600 mg oral tablet (1 source) Nonsteroidal Anti-inflammatory Drug Start: 5 End: 5 take 1 tablet by mouth every six hours as needed for pain ibuprofen (MOTRIN) 600 mg tablet Indications: Dysmenorrhea Take 1 tablet by mouth every 6 hours as needed for pain. FOR PAIN. 30 tablet 1 02/11/2025 03/13/2025 Active lamoTRIgine 25 mg oral tablet (15 sources) Mood Stabilizer, Anti-epileptic Agent Start: 3 take 1 tablet by mouth twice daily, then take 2 tablets by mouth twice daily Lamotrigine (Lamictal) 25 mg tablet Active 25 MG PO TWICE A DAY 76 May 24, 2023 12:00am 25 mg twice a day for 2 weeks then increase to 50 mg twice a day for 2 weeks Start: 02-01-2023 take 1 tablet by katie th once daily, then take 1.5 tablets by mouth once daily lamoTRIgine (LAMICTAL) 100 mg tablet Take 1 tablet by mouth once daily for 14 days, THEN 1.5 tablets once daily. 59 tablet 0 02/01/2023 Active Start: 12-28-2022 End: 11-12-2023 Lamotrigine 25 mg tablet Discontinued 150 mg PO DAILY December 28, 2022 1:00am November 12, 2023 10:42pm Start: 12-28-2022 End: 11-12-2023 take 150 mg by mouth once daily Lamotrigine Discontinu ed 150 MG PO DAILY December 28, 2022 12:00am November 12, 2023 9:42pm Start: 12-28-2022 take 75 mg by mouth once daily Lamotrigine Active 75 MG PO DAILY December 28, 2022 1:00am Start: 11-03-2022 End: 12-31-2022 take 1 tablet [...] once daily. Take 1 tablet by katie th once daily for 14 days, THEN 1.5 tablets once daily. nabumetone 500 mg oral tablet (10 sources) Nonsteroidal Anti-inflammatory Drug Start: End: take 1 tablet by mouth twice daily as needed for pain nabumetone (RELAFEN) 500 mg tablet Indications: osteoarthritis Take 1 tablet by mouth twice daily as needed for pain (WITH FOOD). 60 tablet 3 09/08/2022 03/07/2023 Active Comment on above: Take 1 tablet by katie twice daily as needed for pain (WITH FOOD). ondansetron 4 mg disintegrating oral tablet (3 sources) Serotonin-3 Receptor Antagonist Start: 022 take 4 mg by mouth every six hours Ondansetron Active 4 MG PO EVERY 6 HOURS October 20, 2022 12:00am Pnv Cmb#95-Ferrous Fumarate-Fa () 28 mg iron- 800 mcg tablet (1 source) Start: 025 Pnv Cmb#95-Ferrous Fumarate-Fa () 28 mg iron- 800 mcg tablet Active 1 {tbl} PO DAILY April 23, 2025 12:00am multivitamin ( VITAMIN WITH MINERALS) 28 mg iron- 800 mcg tab (1 source) Start: 025 take 1 tablet by mouth once daily multivitamin ( VITAMIN WITH MINERALS) 28 mg iron- 800 mcg tab Take 1 tablet by mouth once daily. 30 tablet 12 05/07/2025 Active sucralfate 1000 mg oral tablet (2 sources) Aluminum Complex Start: 023 take 1 g by mouth once 1 hour(s) before mealtime Sucralfate Active 1 GM PO before meals March 03, 2023 12:00am take one hour before meals and one hour away from other medications. Completed/Discontinued Medications Medication Drug Class(es) Dates Sig [...] 1 tablet once daily for 14 days. azithromycin 500 mg oral tablet (1 source) Macrolide Antimicrobial Start: 12-29-2023 End: 01-05-2024 take 1 tablet by mouth once daily Azithromycin 500 mg tablet Discontinued 500 mg PO DAILY 7 7 0 December 29, 2023 1:00am January 04, 2024 12:00am January 05, 2024 12:06am benzonatate 100 mg oral capsule (2 sources) Non-narcotic Antitussive Start: 10-31-2022 End: 12-09-2022 take 2 capsules by mouth every eight hours as needed benzonatate (TESSALON PERLE) 100 mg capsule Take 2 capsules by mouth three times daily as needed. 30 capsule 0 10/31/2022 12/09/2022 Discontinued Comment on above: Take 2 capsules by m outh three times daily as needed. Desogestrel / Ethinyl Estradiol (17 sources) Progestin, Estrogen Start: 12-28-2022 End: 11-12-2023 take 0.15 tablet by mouth once daily Desogestrel-Ethiny l Estradiol (Enskyce) 0.15-0.03 mg tablet Discontinued 1 {tbl} PO DAILY December 28, 2022 1:00am November 12, 2023 10:43pm Start: 12-28-2022 End: 11-12-2023 Desogestrel-Ethinyl Estradio l (Enskyce) 0.15-0.03 mg tablet Discontinued 1 TABLET PO DAILY December 28, 2022 12:00am November 12, 2023 9:43pm Start: 12-28-2022 Desogestrel-Et hinyl Estradiol (Enskyce) 0.15-0.03 mg tablet Active 1 TABLET PO DAILY December 28, 2022 1:00am Start: 12-28-2022 Desogestrel-Et hinyl Estradiol (Enskyce) 0.15-0.03 mg tablet Active 1 TABLET PO DAILY December 28, 2022 12:00am Start: 09-16-2022 take 1 tablet by katie th once daily, then take 0.15 tablet by mouth once Desogestrel-Ethinyl Estradiol (APRI) 0.15-0.03 mg per tablet Indications: General counseling and advice for contraceptive management Take 1 tablet by mouth once daily. 84 tablet 3 09/16/2022 Active Comment on above: Take 1 tablet by katie th once daily. DULoxetine 20 mg delayed release oral capsule (1 source) Serotonin and Norepinephrine Reuptake Inhibitor Start: 06-21-20 End: 12-19-19 take 1 capsule by mouth at bedtime Duloxetine 20 mg capsule,delayed release(DR/EC) Discontinued 20 mg PO BEDTIME 30 2 June 21, 2024 12:00am December 19, 2024 2:21pm On Hold: NOT WORKING FA/mv,Ca,iron,min/l ycopene/lut (MULTIVITAL ORAL) (2 sources) End: 04-08-20 FA/mv,Ca,iron,min/ly copene/lut (MULTIVITAL ORAL) Take by mouth. 04/08/2025 Discontinued (Other) FA/mv,Ca,iron,mi n/lycopene/lut (MULTIVITAL ORAL) Take by mouth. Active gabapentin 100 mg oral capsule (11 sources) Anti-epileptic Agent Start: 01-05-2022 End: 09-16-2022 take 1 capsule by mouth once daily gabapentin (NEURONTIN) 100 mg capsule Indications: Sciatica, unspecified laterality , Sleep disturbance take 1 capsule by mouth once daily 30 capsule 2 04/04/2022 09/16/2022 Discontinued Comment on above: Take 1 capsule by [facility] once daily for 90 days. take 1 capsule by [facility] once daily hydrOXYzine hydrochloride 25 mg oral tablet (8 sources) Antihistamine Start: 02-15-2022 End: 09-14-2022 take 25-50 mg by mouth every eight hours as needed hydrOXYzine HCl (ATARAX) 25 mg tablet Take 1-2 tablets by mouth three times daily as needed. 90 tablet 2 02/15/2022 09/14/2022 Discontinued Comment on above: Take 1-2 tablets by mouth three times daily as needed. hyoscyamine sulfate 0.125 mg oral tablet (2 sources) Start: 08-28-2023 End: 11-12-2023 Hyoscyamine Sulfate 0.125 mg tablet Discontinued 0.125 mg PO 2 to 4 times per day as needed for dyspepsia 11 03August 28, 2023 1:00am November 12, 2023 10:43pm methylPREDNISolone 4 mg oral tablet (1 source) Corticosteroid Start: 12-29-2023 End: 06-21-2024 Methylprednisolone 4 mg tablets,dose pack Discontinued 0 PO per package directions December 29, 2023 1:00am June 21, 2024 3:05pm PO PER PKG DIR for 6 days pantoprazole 20 mg delayed release oral tablet (11 sources) Proton Pump Inhibitor Start: 12-29-2023 End: 12-19-2024 take 1 tablet by mouth twice daily Pantoprazole (Protonix) 20 mg tablet,delayed release (DR/EC) Discontinued 20 mg PO TWICE A DAY 60 30 5 December 29, 2023 1:00am December 19, 2024 2:21pm On Hold: HOLD FOR SCOPE Start: 08-03-2023 End: 11-12-2023 take 1 tablet by mouth once daily Pantoprazole 40 mg tablet,delayed release (DR/EC) Discontinued 40 mg PO DAILY August 03, 2023 12:00am November 12, 2023 10:42pm Start: 06-16-2023 take 40 mg by mouth once daily Pantoprazole Active 40 MG PO DAILY 60 June 16, 2023 12:00am Start: 02-20-2023 End: 08-03-2023 take 1 tablet by mouth twice daily Pantoprazole 40 mg tablet,delayed release (DR/EC) Discontinued 40 mg PO TWICE A DAY 60 5 February 20, 2023 12:00am August 03, 2023 11:45am PNV no.95/ferrous fum/folic ac ( ORAL) (15 sources) End: 05-07-2025 PNV no.95/ferrous fum/folic ac ( ORAL) Take by mouth. 05/07/2025 Discontinued End: 02-11-2025 PNV no.95/ferrous fum/folic ac ( ORAL) Take by mouth. 02/11/2025 Discontinued PNV no.95/ferrou s fum/folic ac ( ORAL) Take by mouth. Active PNV no.95/ferrou s fum/folic ac ( ORAL) Take by mouth. 0 Active 25/iron fum/folic/d guadalupe (-1 ORAL) (3 sources) End: 11-27-2023 25/iron fum/folic/d guadalupe (-1 ORAL) Take by mouth. 0 11/27/2023 Discontinued (Course of therapy completed) 25/iron fum/folic/dha (-1 ORAL) Take by mouth. 0 Active Comment on above: Take by mouth. Problems Active Problems Problem Classification Problem Date Documented Da te Episodic/Chronic Abdominal pain (20 sources) Abdominal pain; Translations: [Unspecified abdominal pain] 10-28-2022 Episodic Acute and chronic tonsillitis (1 source) Tonsillitis; Translations: [Acute tonsillitis, unspecified] 02-14-2024 Episodic Anxiety disorders (20 sources) Mixed anxiety and depressive disorder; Translations: [Anxiety disorder, unspecified] Onset: 11-03-2022 Chronic Conditions associated with dizziness or vertigo (1 source) Dizziness; Translations: [Dizziness and giddiness] 09-08-2023 Episodic Contraceptive and procreative management (4 sources) Patient encounter status; Translations: [Encounter for other general counseling and advice on contraception] Episodic Ectopic (3 sources) Tubal ; Translations: [Right tubal without intrauterine ] 11-23-2023 Episodic Esophageal disorders (10 sources) Eosinophilic esophagitis; Translations: [Eosinophilic esophagitis] 02-20-2023 Chronic Female infertility (1 source) Female infertility; Translations: [Female infertility, unspecified] 04-02-2024 Chronic Gastritis and duodenitis (4 sources) Gastritis; Translations: [Gastritis, unspecified, without bleeding] 06-16-2023 Episodic Hemorrhage during ; abruptio placenta; placenta previa (4 sources) Bleeding from female genital tract during ; Translations: [Antepartum hemorrhage, unspecified, unspecified trimester] Onset: 04-08-2025 11-12-2023 Episodic Immunizations and screening for infectious disease (3 sources) Viral screening status; Translations: [Encounter for screening for other viral diseases] Episodic Influenza (1 source) Influenza due to Influenza A virus; Translations: [Influenza due to other identified influenza virus with other respiratory manifestations] 12-27-2024 Episodic Malaise and fatigue (2 sources) Fatigue; Translations: [Other fatigue] Episodic Menstrual disorders (5 sources) Missed period; Translations: [Irregular menstruation, unspecified] Onset: 02-11-2025 Chronic Mood disorders (20 sources) Bipolar I disorder; Translations: [Mood disorder] Onset: 11-03-2022 01-25-2016 Chronic Nausea and vomiting (20 sources) Nausea; Translations: [Nausea] Episodic Nonmalignant breast conditions (2 sources) Lump in right breast; Translations: [Unspecified lump in the right breast, unspecified quadrant] Episodic Other circulatory disease (1 source) Elevated blood-pressure reading without diagnosis of hypertension; Translations: [Elevated blood-pressure reading, without diagnosis of hypertension] 12-27-2024 Episodic Other complications of (2 sources) Missed miscarriage; Translations: [Missed ] 04-24-2025 Episodic Other complications of (1 source) Missed ; Translations: [Missed ] Onset: 2025 Episodic Other female genital disorders (1 source) Abnormal uterine bleeding; Translations: [Abnormal uterine and vaginal bleeding, unspecified] Onset: 04-28-2025 Chronic Other female genital disorders (1 source) Abnormal uterine and vaginal bleeding, unspecified; Translations: [Abnormal uterine and vaginal bleeding, unspecified] Onset: 04-28-2025 Chronic Other gastrointestinal disorders (6 sources) Constipation alternates with diarrhea; Translations: [Other specified symptoms and signs involving the digestive system and abdomen] 02-20-2023 Episodic Other gastrointestinal disorders (4 sources) Other specified symptoms and signs involving the digestive system and abdomen; Translations: [Other symptoms involving digestive system] 02-20-2023 Episodic Other liver diseases (1 source) Steatosis of liver; Translations: [Fatty (change of) liver, not elsewhere classified] 02-11-2025 Chronic Other liver diseases (10 sources) Large liver; Translations: [Hepatomegaly, not elsewhere classified] 11-29-2022 Episodic Other liver diseases (9 sources) Hepatomegaly, not elsewhere classified; Translations: [Hepatomegaly] 11-29-2022 Episodic Other nervous system disorders (1 source) [...] gain] Episodic Other and delivery including normal (3 sources) with uncertain dates; Translations: [Encounter for supervision of normal , unspecified, first trimester] Onset: 04-08-2025 11-23-2023 Episodic Other screening for suspected conditions (not mental disorders or infectious disease) (11 sources) Computed tomography result abnormal; Translations: [Abnormal findings on diagnostic imaging of other specified body structures] 10-28-2022 Chronic Residual codes; unclassified (2 sources) Disturbance in sleep behavior; Translations: [Sleep disorder, unspecified] Episodic Residual codes; unclassified (2 sources) H/O: ectopic ; Translations: [Personal history of other complications of , childbirth and the puerperium] 12-21-2023 Episodic Residual codes; unclassified (1 source) Harmful pattern of use of nicotine; Translations: [Tobacco use] 02-11-2025 Episodic Residual codes; unclassified (1 source) Gestation period, 8 weeks; Translations: [8 weeks gestation of ] 04-21-2025 Episodic Residual codes; unclassified (1 source) Past history of procedure; Translations: [Other specified postprocedural states] Onset: 04-28-2025 Episodic Residual codes; unclassified (1 source) Postoperative state; Translations: [Other specified postprocedural states] 05-02-2025 Episodic Residual codes; unclassified (1 source) 8 weeks gestation of ; Translations: [8 weeks gestation of (HCC)] Onset: 04-21-2025 Episodic Residual codes; unclassified (1 source) Other specified postprocedural states; Translations: [Other specified postprocedural states] Onset: 04-28-2025 Episodic Spondylosis; intervertebral disc disorders; other back problems (9 sources) Sciatica; Translations: [Sciatica, unspecified side] Onset: 09-08-2022 Episodic Spontaneous (3 sources) Miscarriage; Translations: [Complete or unspecified spontaneous without complication] Onset: 04-21-2025 04-21-2025 Episodic Unclassified (1 source) Discussion Onset: 04-22-2025 Unclassified (1 source) Cough, unspecified; Translations: [Cough, unspecified] Onset: 01-02-2025 Past or Other Problems Problem Classification Problem Date Documented Da te Episodic/Chronic Abdominal hernia (11 sources) Hiatal hernia; Translations: [Diaphragmatic hernia without obstruction or gangrene] Onset: 09-04-2024 02-20-2023 Episodic Other screening for suspected conditions (not mental disorders or infectious disease) (5 sources) Cancer cervix screening status; Translations: [Encounter for screening for malignant neoplasm of cervix] Onset: 06-14-2024 Episodic Results Test Name Value Interpretation Reference Range Facility Pathology Specimen OBon 04-22 PATH. Spec OB SEE PATHOLOGY REPORT Normal [facility] Comment on above: Order Comment: Has p t arrived? Y Send Specimen For (Specify): Anora Chromosomal Study Time of Procedure: 1110 Date of Procedure: 04/24/25 Reason specimen being sent to pathology (Hx/complications): MISSED AB Type of specimen: Demise Type of procedure performed: D C RECIEVED 04/24/25 Result Comment: Spec imen submitted to Anatomical Pathology Department for testing. Performed By: #### L 350.1800 #### [facility] [address] [place], [address] CNOVon 05-02-2025 CNOV Office Visit (OBGYWM ) -------- MICHELLE HENDERSON ([id number]) 1985 F Date Time Provider Department 05/02/25 2:00 PM LINDA SLOAN OBGYWLatesha During your visit today, we recorded the following information about you: Blood pressure Weight 102/60 100.2 kg Linda Sloan MD 05/02/2025 4:54 PM Addendum DATE OF SERVICE: 05/02/2025 PROBLEM: Michelle Henderson presents for postop visit. SURGERY AND DATE: 04/24/2025, Hysteroscopy [facility] PATHOLOGY: not available for review SUBJECTIVE/INTERVAL HISTORY: Michelle Henderson is doing ok. Was having pain right after surgery with clotting that has improved. Bleeding dark brown spotting only when using restroom. Minimal cramping. Denies fevers, chills, malaise, nausea or vomiting, constipation, urinary symptoms. Having more frequent stools. Eating well. No vaginal discharge or odor. SENSITIVE EXAM: Sensitive exam not performed. OBJECTIVE: VITALS: BP 102/60 Wt 100.2 kg (221 lb) LMP 02/19/2025 (Exact Date) BMI 38.91 kg/m? HEENT: Normocephalic and atraumatic ABDOMEN: Abdomen soft, non-tender, non acute. ASSESSMENT: post op doing well PLAN: Discussed surgery with patient in detail and questions answered Pathology in process Patient plans to see SHEEBA and has an appointment scheduled Discussed bleeding expectations moving forward, and reasons to call Linda Sloan DO Allergies As of Date: 05/02/2025 (No Known Allergies) Date Reviewed: 05/02/2025 Reviewed by: Mimi Keane MA - Fully Assessed Reason for Visit: Post-Op Visit [1236] Primary Visit Diagnosis:Post-operative state [Z98.890] Prescriptions as of 05/02/2025 - PNV no.95/ferrous fum/folic ac ( ORAL) Take by mouth. Problem List As Of Date 05/02/2025 Noted Resolved Bipolar 2 disorder (HCC) [F31.81] 11/03/2022 STORMY (generalized anxiety disorder) [F41.1] 11/03/2022 Encounter Status:Closed by LINDA SLOAN on 05/02/25 Normal [facility] 04-28-2025 Hematocrit (Bld) [Volume fraction] 40.6 % Normal 34.0-46.0 [facility] Comment on above: Performed By: #### H H #### [id number] [place], [place] [address] Hgb 13.7 G/dL Normal 12.0-16.0 [facility] Comment on above: Performed By: #### H H #### [id number] [place], [place] [address] LABORATORYOrdered By: SYSTEM SYSTEM on 04-28-2025 Hematocrit (Bld) [Volume fraction] 40.6 % Normal 34.0 - 46.0 % AO Workflow SS Hemoglobin (Bld) [Mass/Vol] 13.7 G/dL Normal 12.0 - 16.0 G/dL AO Workflow SS CBC-Complete Blood Cnt No Di ffon 04-24-2025 Erythrocyte distribution width (RBC) [Ratio] 12.7 % Normal 11.6-14.6 [facility] Comment on above: Performed By: #### B TSPAT, L100.0500 ####[facility] [address] [place], [address] Hematocrit (Bld) [Volume fraction] 41.4 % Normal 37-47 [facility] Comment on above: Performed By: #### B TSPAT, L100.0500 ####[facility] [address] [place], [address] Hemoglobin (Bld) [Mass/Vol] 13.8 g/dL Normal 12.0-15.0 [facility] Comment on above: Performed By: #### B TSPAT, L100.0500 ####[facility] [address] [place], [address] MCH (RBC) [Entitic mass] 30.1 pg Normal 27.0-32.0 [facility] Comment on above: Performed By: #### B TSPAT, L100.0500 ####[facility] [address] [place], [address] MCHC (RBC) [Mass/Vol] 33.3 g/dL Normal 32-36 [facility] Comment on above: Performed By: #### B TSPAT, L100.0500 ####[facility] [address] [place], [address] MCV (RBC) [Entitic vol] 90.4 fL Normal 81-99 [facility] Comment on above: Performed By: #### B TSPAT, L100.0500 ####[facility] [address] [place], [address] Platelet mean volume (Bld) [Entitic vol] 10.2 fL Normal 6.2-12.0 [facility] Comment on above: Performed By: #### B TSPAT, L100.0500 ####[facility] [address] [place], [address] Platelets (Bld) [#/Vol] 273 10*3/uL Normal 150-450 [facility] Comment on above: Performed By: #### B TSPAT, L100.0500 ####[facility] [address] [place], [address] RBC (Bld) [#/Vol] 4.58 10*6/uL Normal 4.2-5.4 [facility] Comment on above: Performed By: #### B TSPAT, L100.0500 ####[facility] [address] [place], [address] RDW SD 41.8 fl Normal 35.1-43.9 [facility] Comment on above: Performed By: #### B TSPAT, L100.0500 ####[facility] [address] [place], [address] WBC (Bld) [#/Vol] 7.1 10*3/uL Normal 4.4-11.0 [facility] Comment on above: Performed By: #### B TSPAT, L100.0500 ####[facility] [address] [place], [address] Discharge Instructionon 070 Discharge Instruction [facility] Medical Records Department [address] [place] [address] Instructions for Home/Discharge Instructions 04/24/25 1142 MR#: [id number] Acct: [id number] Name: BEATRIZMICHELLE L Rep #: [id number] : 1985 39 From: Linda Sloan DO PCP: Dr. Zheng Sharif MD Status:REG NDC Discharge Instructions Diet Discharge Diet: No restrictions DC O2, CPAP, BIPAP needs Home O2 Discharge instructions: No Dressing / Incision Discharge Activity: May Not Drive (for 24 hours after surgery) and May Not Shower (for 24 hours after surgery) May resume sexual activity in: 1 week (no tampons, intercourse, or soaking in water) Weight Bearing Status: Weight bearing as tolerated Lifting Restrictions: none Dressing / Incision Call your doctor if you observe: Fever of 101 or Higher, Using more than 1 pad per hour, Shortness of breath, Dizziness, Chest pain, Increased palpitations (irregular heartbeat), Calf discomfort and Uncontrolled pain Follow Up Care Please Follow Up With: Linda Sloan DO When: 1-2 weeks post op Test Results: Test results from this visit will be discussed in further detail at your follow-up appointment, if applicable. Discharge Plan Admission Primary Reason for Your Visit: surgery Attending Provider: Linda Sloan Primary Care Provider: Zheng Sharif Instructions Patient Instructions: Dilation and Curettage Print Language: Bulgarian Discharge Orders/Prescriptions Prescriptions: No Action PNV cmb#95-ferrous fumarate-FA [] 28 mg iron- 800 mcg tablet 1 tab PO DAILY Referrals / Follow Up: Zheng Sharif MD [Primary Care Provider] - Disposition Disposition (needs filled in before D/C Order can be placed): Home, Self Care 04/24/25 1143 Linda Sloan DO CC: Dr. Zheng Sharif MD Signed Normal [facility] Erythrocyte distribution wid th ratioOrdered By: Linda Sloan on 04-24-2025 Erythrocyte distribution width (RBC) [Ratio] 12.7 % 11.6-14.6 [facility] Erythrocyte distribution wid th standard deviationOrdered By: Linda Sloan on 04-24-2025 Erythrocyte distribution width (RBC) [Ratio] 41.8 fl 35.1-43.9 [facility] Hematocrit Auto (Bld) [Volum e fraction]Ordered By: Linda Sloan on 04-24-2025 Hematocrit (Bld) [Volume fraction] 41.4 % 37-47 [facility] Hemoglobin measurementOrdere d By: Linda Sloan on 04-24-2025 Hemoglobin (Bld) [Mass/Vol] 13.8 g/dL 12.0-15.0 [facility] MCV (mean corpuscular volume ) determinationOrdered By: Linda Sloan on 04-24-2025 MCV (RBC) [Entitic vol] 90.4 fL 81-99 [facility] MR/POSTOP.ANEon 04-24-2025 MR/POSTOP.[facility] Medical Records Department [address] [place] [address] Anesthesia Postop Eval I 04/24/25 1154 MR#: [id number] Acct: [id number] Name: MICHELLE HENDERSON Rep #: [id number] : 1985 39 From: Guy Pereira CRNA PCP: Dr. Zheng Sharif MD Status:[facility] Y Race: C Location: [place] [address] Anesthesia: Postop Eval I Current Vital Signs Temperature: 97 F Pulse Rate: 65 Blood Pressure: 116/65 Respiratory Rate: 14 Pulse Ox: 100 Assessment Airway patent: Yes Spontaneous unlabored respirations: Yes nausea: No Vomiting: No Anesthesia Complication: No Fluid Hydration Crystalloid volume administer (ml): 1,000 Total IV fluid infused: 1,000 Progress Note Anesthesia document: Postop Eval 1 completed: Yes 04/24/25 1154 Date Guy Pereira LOOM CHANGER Cosigner Signature: Date CC: Signed Normal [facility] MR/[id number] 04-24-2025 [facility] Medical Records Department [address] [place] [address] Anesthesia Postop Eval II 04/24/25 1411 MR#: [id number] Acct: [id number] Name: MICHELLE HENDERSON Zee Rep #: [id number] : 1985 39 From: Justin Cohen MD PCP: Dr. Zheng Sharif MD Status:[facility] Y Race: C Location: [facility] Anesthesia Postop Eval I Sum Postop Eval Completion status Anesthesia document: Postop Eval 1 completed: Yes Anesthesia Postop Eval I Summary Anesthesia Postop Eval I Summary: Anesthesia Postop Eval I: Assessment Summary Airway patent Yes 04/24/25 11:54 LOOM [email or web address] Spontaneous unlabored Yes 04/24/25 11:54 LOOM [email or web address].TNES respirations Mental status nausea No 04/24/25 11:54 LOOM [email or web address].TNES Vomiting No 04/24/25 11:54 LOOM [email or web address].TNES Anesthesia Postop Eval I: Fluid Summary Crystalloid volume administer 1,000 04/24/25 11:54 LOOM [email or web address].TNES (ml) Colloids volume administered ( ml) Blood Product volume administered (ml) Total IV fluid infused 1,000 04/24/25 11:54 LOOM [email or web address].TNES Anesthesia Postop Eval I: Summary Notes Anesthesia Complication No 04/24/25 11:54 LOOM [email or web address].TNES Anesthesia Complication Comment: Post-operative progress note Anesthesia: Postop Eval II Evaluation Mental status: Awake and Calm Pain Level: 2 nausea: No Vomiting: No Complications Anesthesia Complication: No 04/24/25 1412 Date Justin Cohen MD Cosigner Signature: Date CC: Signed Normal [facility] Mean corpuscular hemoglobin (MCH) determinationOrdered By: Linda Sloan on 04-24-2025 MCH (RBC) [Entitic mass] 30.1 pg 27.0-32.0 [facility] Mean corpuscular hemoglobin concentration (MCHC) determinationOrdered By: Linda Sloan on 04-24-2025 MCHC (RBC) [Mass/Vol] 33.3 g/dL 32-36 [facility] Mean platelet volume determi nationOrdered By: Linda Sloan on 04-24-2025 Platelet mean volume (Bld) [Entitic vol] 10.2 fL 6.2-12.0 [facility] Operative Reporton Operative Report [facility] Medical Records Department [address] [place] [address] Operative Report 04/24/25 1143 MR#: [id number] Acct: [id number] Name: MICHELLE HENDERSON Rep #: [id number] : 1985 39 From: Linda Sloan DO PCP: Dr. Zheng Sharif MD Status:REG [facility] Location: [place] [address] Problems Associated Problem List Diagnoses (1) Missed : Operative Report (Standard) Operative Information Date of Procedure: 04/24/25 Pre-Operative Diagnosis: Blighted ovum Post-Operative Diagnosis: As above Surgery/Procedure Performed: Suction D C packing supervisor: Yes Bulk Cooler Installer: Gabby Garcia MS4 Tasks completed by malt specifications control assistant: Retracting Type of Anesthesia: MAC RN Documented Start/Stop Times: Operation Date: 04/24/25 10:15 Case Time Into Pre-Op 04/24/25 08:43 Anesthesia Start 04/24/25 11:10 Into Room 04/24/25 11:10 Procedure Start 04/24/25 11:30 Procedure End 04/24/25 11:39 Procedure Start Time: 11:30 Procedure Stop Time: 11:39 Select all DRAINS/GRAFTS/IMPLANTS that apply: None Special Medications: None Estimated Blood Loss: 50 mL Fluids Replaced: See anesthesia record Specimen collected: Yes Description of specimen(s) removed: Products of conception Description of surgery: Discussed risk, benefits, alternatives to a suction D C in the operating room with patient in preop and questions were answered. Discussed the Anora miscarriage testing in detail, and discussed cost and coverage with the patient. Discussed there might not be enough tissue for the miscarriage testing, and given a blighted ovum the results but may not be informative. The patient request to proceed with surgical management of a blighted ovum, and request to have Anora miscarriage testing done. She feels well counseled. The patient was taken to the operating room where MAC anesthesia was induced and found to be adequate. She was prepped and draped in the dorsal lithotomy position using yellowfin stirrups. A weighted speculum was placed in the vagina to expose the cervix. The anterior lip of the cervix was grasped with a single-tooth tenaculum. Local was infiltrated in the cervix. The cervix was serially dilated to accommodate a size 7 suction curettage. A size 7 suction curettage was inserted into the uterus to remove products of conception on several passes until no further products of conception were noted. Bleeding was scant. All instruments were removed from the vagina. A vaginal sweep was performed. Sponge and instrument and sharp counts were correct. The patient was taken to the cover in stable vision. Surgical Findings: Enlarged anteverted uterus palpates about 6-7 week in size Complications Complications: No Admit VTE Documentation VTE Present on Admission: No VTE Mechan Device Prophylaxis: SCD's 04/24/25 1148 Cosigner Signature (if applicable): CC: Dr. Zheng Sharif MD; Dr. Linda Sloan DO Signed Normal [facility] Platelet countOrdered By: Sa ra Sloan on 04-24-2025 Platelets (Bld) [#/Vol] 273 10*3/uL 150-450 [facility] RBC Auto (Bld) [#/Vol]Ordere d By: Linda Sloan on 04-24-2025 RBC (Bld) [#/Vol] 4.58 10*6/uL 4.2-5.4 [facility] Surgery Specimen Level Radha 04-24-2025 Surgery Specimen Level IV Patient Age/Sex Location Account Attending Physician MICHELLE HENDERSON 39/F [facility] [id number] Dr. Linda Sloan DO Specimen: [id number] Received: 04/24/25 Status: ROSHAN Subramanian Num: [id number] Spec Type: PROD CONC Subm Dr: Dr. Linda Sloan, DO HEADER OPERATION: Dilation and curettage, suction PRE-OP DIAGNOSIS: Missed TISSUE SUBMITTED: A- Products of conception MICROSCOPIC DIAGNOSIS A. Soft tissue, products of conception, dilation and curettage: - Immature chorionic villi and decidua consistent with products of conception. MICROSCOPIC DESCRIPTION Slides are reviewed. GROSS DESCRIPTION A. Received in formalin labeled with the patient's name and date of . Designated as products of conception is a 19.6 g, 6.0 x 5.2 x 0.5 cm aggregate of avalos-pink to red soft tissue fragments ,blood clot and minimal papilliferous tissue fragments (suspicious for chorionic villi). parts are not present. Parboiler sections are submitted in 2 cassettes. IA 04/24/2025 CPT:15246 Patient Age/Sex Location Account Attending Physician MICHELLE HENDERSON 39/F [facility] [id number] Dr. Linda Sloan, DO Signed (signature on file) Dr. Pattei Morrison MD 05/06/25 0943 Normal [facility] Comment on above: Performed By: #### P SUIV #### [facility] [address] [place], [place], [id number] Type AND Screen - PAT ONLYon 04-24-2025 Ab SCREEN GEL Negative Normal [facility] Comment on above: Order Comment: Surge ry Date: 04/24/25Reason for Laboratory Test [id number] D C Performed By: #### B TSPAT, L100.0500 ####[facility] [id number] [place], [place], [id number] White blood cell (WBC) count Ordered By: Linda Sloan on 04-24-2025 WBC (Bld) [#/Vol] 7.1 10*3/uL 4.4-11.0 [facility] CNCOon 04-22-2025 CNCO Letter Text [facility] CNOVon 04-22-2025 CNOV Office Visit (OBGYWM ) -------- MICHELLE HENDERSON ([id number]) 1985 F Date Time Provider Department 04/22/25 10:00 AM KAJAL BETHEA OBGYWM During your visit today, we recorded the following information about you: Blood pressure Weight 112/64 100.2 kg Kajal Bethea MD 04/22/2025 5:18 PM Signed Michelle Steeleown is a 39 year old female who presents for problem visit HPI: Visit yesterday confirmed no IUP, GS only no pole. Same as US from 04/08. Reviewed options with patient. Spontaneous passage of POC, Cytotec, IPAS or DANDC. Patient is interested in surgical procedure so that she can sent the POC for genetic testing. Plan for IPAS in office if able to schedule. Currently with no bleeding or cramping. OB History Gravida4 Para2 Term1 Preterm1 AB1 Living2 SAB0 IAB0 Ectopic1 Multiple0 Live Births2 Comment: x 2 Proj Engineer History LMP: 02/19/2025 (Exact Date), Age at Menarche: Age at First : Age at Menopause: Proj Engineer History Comments: Sexual Activity: Yes; Male Contraception: No contraception data on record PAST MEDICAL HISTORY Diagnosis Date Gastroparesis Liver disease PAST SURGICAL HISTORY Procedure Laterality Date BREAST BIOPSY NEEDLE RIGHT Right 09/17/2021 CHOLECYSTECTOMY HX 2014 FAMILY HISTORY Problem Relation Age of Onset other (MVP, IBS) Mother No Known Problems Father no relationship Cancer Sister cervical Depression Brother Social History Tobacco Use Smoking status: Former Passive exposure: Never Smokeless tobacco: Never Tobacco comments: Was vaping have already quit Vaping Use Vaping status: Former Substances: Nicotine, Flavoring Devices: Disposable Substance Use Topics Alcohol use: No Drug use: No Current Outpatient Medications Medication Sig PNV no.95/ferrous fum/folic ac ( ORAL) Take by mouth. No current facility-administered medications for this visit. Allergies As of Date: 04/22/2025 (No Known Allergies) Fully Assessed 04/22/2025 REVIEW OF SYSTEMS Abdomen: No bloating, early satiety, indigestion, or increased flatulence. No abdominal pain, nausea, vomiting, diarrhea, or constipation. Bladder: No dysuria, gross hematuria, urinary frequency, urinary urgency, or incontinence. Breast: No breast lumps, nipple d/c, overlying skin changes, redness or skin retraction. Expanded ROS: N/A Allergies and current medication updated:Yes SENSITIVE EXAM: Sensitive exam not performed. EXAM: BP 112/64 Wt 221 lb (100.2kg) LMP 02/19/2025 GENERAL: pleasant, female in no apparent distress HEENT: Normocephalic, atraumatic, mucus membranes moist, and no lesions NECK: Supple, full range of motion, and no adenopathy DERMATOLOGY: Normal, without lesions, non-icteric, and non-hirsute BREAST: deferred CHEST: Normal inspiratory effort ABDOMEN: Deferred PELVIC: deferred BIMANUAL: deferred NEURO: alert and oriented x3,exam grossly non-focal EXTREMITIES: normal ASSESSMENT AND PLAN: Assessment AND Plan Miscarriage at 8 to 28 weeks gestation ([facility]) Patient added to OR for [facility] due to full office schedule. Discussed plan on phone with patient Ordered placed. Consent to be signed at the hospital day of procedure. [facility] Kajal Bethea MD Allergies As of Date: 04/22/2025 (No Known Allergies) Date Reviewed: 04/22/2025 Reviewed by: Kajal Bethea MD - Fully Assessed Reason for Visit: Discussion [813] Primary Visit Diagnosis:Miscarriage at 8 to 28 weeks gestation ([facility]) [O03.9] Prescriptions as of 04/22/2025 - PNV no.95/ferrous fum/folic ac ( ORAL) Take by mouth. Problem List As Of Date 04/22/2025 Noted Resolved Bipolar 2 disorder (HCC) [F31.81] 11/03/2022 STORMY (generalized anxiety disorder) [F41.1] 11/03/2022 Level of Service: OFFICE/OUTPATIENT ESTABLISHED MOD MDM 30 MIN [22608] LOS History for Encounter Level of Service: OFFICE/OUTPATIENT ESTABLISHED LOW MDM 20 MIN[24296] Date AND Time: 04-22-2025 5:16 PM Recorded by User: KAJAL BETHEA Encounter Status:Closed by KAJAL BETHEA on 04/22/25 [facility] -------- MICHELLE HENDERSON ([id number]) 1985 F Date Time Provider Department 04/22/25 NURSE SAND SLINGER OPERATOR [facility] OGFVWE During your visit today, we recorded the following information about you: Sai Lemos RN 04/22/2025 10:09 AM Signed 1st risk assessment form submitted 04/22/25 Sai Lemos RN Allergies As of Date: 04/22/2025 (No Known Allergies) Date Reviewed: 04/22/2025 Reviewed by: Kajal Bethea MD - Fully Assessed Reason for Visit: PRAF [4193] Prescriptions as of 04/22/2025 - PNV no.95/ferrous fum/folic ac ( ORAL) Take by mouth. Problem List As Of Date 04/22/2025 Noted Resolved Bipolar 2 disorder (HCC) [F31.81] 11/03/2022 STORMY (generalized anxiety disorder) [F41.1] 11/03/2022 Encounter Status:Closed by SAI LEMOS on 04/22/25 [facility]21-20[facility] -------- MICHELLE HENDERSON ([id number]) 1985 F Date Time Provider Department 04/21/25 RANI YEN OBGYWM During your visit today, we recorded the following information about you: Rani Yen APRN.CNP 04/21/2025 12:50 PM Signed I seen this patient this morning for a new OB visit, which is a SAB. She is 8 weeks 5 days with no pole. Spoke with Dr Sloan regarding follow-up. SW is okay with her doing a virtual visit with either herself today or one of the doctors tomorrow for management care. If you could please reach out to the patient and assist her with scheduling. ANNA Frey Jennifer, RN 04/21/2025 2:19 PM Signed Called and spoke with patient. No openings with SW today. Scheduled patient with JG tomorrow to discuss options. Kajal Pena RN Allergies As of Date: 04/21/2025 (No Known Allergies) Date Reviewed: 04/21/2025 Reviewed by: Alicia Guthrie LPN - Fully Assessed Reason for Visit: Appointment [186] Prescriptions as of 04/21/2025 - PNV no.95/ferrous fum/folic ac ( ORAL) Take by mouth. Problem List As Of Date 04/21/2025 Noted Resolved Bipolar 2 disorder (HCC) [F31.81] 11/03/2022 STORMY (generalized anxiety disorder) [F41.1] 11/03/2022 Encounter Status:Closed by KAJAL PENA on 04/21/25 Normal [facility] POC LABORATORY TECHNICAL SPECIALIST ULTRASOUNDon 04-21-20 Indication Viability Impression Single intrauterine gestational sac, cardiac activity is not visualized. - A normally located single gestational sac is present with sonographic criteria definitive for early loss, confirming a nonviable . - Yolk sac/ pole is/are present without cardiac motion. - CRL measures 8.9 mm mm, corresponding to 6w 6d. - Features are consistent with a definitive early loss. Recommendations Findings are consistent with missed . Medical or surgical management is recommended as clinically indicated Method Transvaginal ultrasound examination. View: Adequate visualization Prakash . Number of embryos: 1 Dating LMP on: 02/19/2025 GA by LMP 8 w + 5 d PETER by LMP: 11/26/2025 Ultrasound examination on: 04/21/2025 GA by U/S based upon: CRL GA by U/S 6 w + 6 d PETER by U/S: 12/09/2025 Assigned: based on the LMP, selected on 04/08/2025 Assigned GA 8 w + 5 d Assigned PETER: 11/26/2025 Biometry Standard CRL 8.9 mm 6w 6d <1% Hadlock Extended GS 8.5 mm -/- <1% Bhavik GS D1 8.0 mm GS D2 8.9 mm YS 4.9 mm 45% Grisolia Assessment GS 8.5 mm -/- <1% Bhavik GS D1 8.0 mm GS D2 8.9 mm YS 4.9 mm 45% Grisolia CRL 8.9 mm 6w 6d <1% Hadlock Cardiac activity: absent General Evaluation Cardiac activity absent Performed By: Rani Yen CNP Read By: Rani Yen CNP MATERNAL MEDICINE [facility] Radiology Study observation (narrative) [facility] 04-15-2025 CNPN Telephone (OBGYWM) -------- MICHELLE HENDERSON ([id number]) 1985 F Date Time Provider Department 04/15/25 RANI YEN During your visit today, we recorded the following information about you: Claudette Kirkland MA 04/15/2025 3:13 PM Signed Left voicemail to go over NOB intake question. Told patient to give our office a call back at her convince. ClaudetteSUSSY Benz Amanda, MA 04/16/2025 11:16 AM Signed NOB intake completed. Mimi Keane MA Allergies As of Date: 04/15/2025 (No Known Allergies) Date Reviewed: 04/08/2025 Reviewed by: Leena Becerril MD - Fully Assessed Reason for Visit: Appointment [186] Prescriptions as of 04/16/2025 - PNV no.95/ferrous fum/folic ac ( ORAL) Take by mouth. Problem List As Of Date 04/15/2025 Noted Resolved Bipolar 2 disorder (HCC) [F31.81] 11/03/2022 STORMY (generalized anxiety disorder) [F41.1] 11/03/2022 Encounter Status:Closed by MIMI KEANE on 04/16/25 [facility] CNOVon 04-08-2025 CNOV Office Visit (OBGYWM ) -------- MICHELLE HENDERSON ([id number]) 1985 F Date Time Provider Department 04/08/25 3:30 PM LEENA BECERRIL OBGYWM During your visit today, we recorded the following information about you: Weight Last Period 101.2 kg 02/19/25 Leena Becerril MD 04/08/2025 4:58 PM Signed OB point of care ultrasound was performed. See imaging tab for details. MD Michelle Metz is a 39 year old female who presents for problem visit for spotting in . HPI: 39 YOF w/ short menses lasted 3 days February 19 somewhat normal for her. Wasn't preventing . Last was ectopic. No pain, a little intemittent nausea. OB History Gravida3 Para2 Term1 Preterm1 AB1 Living2 SAB0 IAB0 Ectopic1 Multiple0 Live Births2 Comment: x 2 Proj Engineer History LMP: 02/19/2025 (Exact Date), Having periods Age at Menarche: Age at First : Age at Menopause: Proj Engineer History Comments: Sexual Activity: Yes; Male Contraception: No contraception data on record PAST MEDICAL HISTORY Diagnosis Date Gastroparesis Liver disease PAST SURGICAL HISTORY Procedure Laterality Date BREAST BIOPSY NEEDLE RIGHT Right 09/17/2021 CHOLECYSTECTOMY HX 2015 FAMILY HISTORY Problem Relation Age of Onset other (MVP, IBS) Mother No Known Problems Father no relationship Cancer Sister cervical Depression Brother Social History Tobacco Use Smoking status: Former Passive exposure: Never Smokeless tobacco: Never Tobacco comments: Was vaping have already quit Vaping Use Vaping status: Former Substances: Nicotine, Flavoring Devices: Disposable Substance Use Topics Alcohol use: No Drug use: No Current Outpatient Medications Medication Sig PNV no.95/ferrous fum/folic ac ( ORAL) Take by mouth. FA/mv,Ca,iron,min/lycope ne/lut (MULTIVITAL ORAL) Take by mouth. (Patient not taking: Reported on 04/08/2025) No current facility-administered medications for this visit. Allergies As of Date: 04/08/2025 (No Known Allergies) Fully Assessed 04/08/2025 Allergies and current medication updated:Yes SENSITIVE EXAM: The sensitive examination was discussed with the Patient or Patient's Authorized Parboiler. As applicable, any other physician, advance practice provider, medical student, or other health professional student that will be observing or involved in the sensitive examination for educational or training purposes was discussed with the Patient or Authorized Parboiler. The Patient or Authorized Parboiler has agreed to proceed with the sensitive examination. (Sensitive examination includes inspection and/or palpation of the breasts, pelvis, prostate and anorectal regions). EXAM: Wt 223 lb (101.2kg) LMP 02/19/2025 GENERAL: pleasant, female in no apparent distress PELVIC: external genitalia normal, normal Bartholin's glands, urethra, [place]'s glands, no vulvar lesions, no cervical lesions, good vaginal support, physiologic discharge present, normal appearing perineal body and perianal region, no gross blood, cervix closed BIMANUAL: uterus normal size, shape and consistency, no adnexal masses, and non-tender ASSESSMENT AND PLAN: Assessment AND Plan Vaginal bleeding affecting early (HCC) Orders: POC LABORATORY TECHNICAL SPECIALIST ULTRASOUND UA DIP,URINE HCG (POC) with uncertain dates in first trimester (HCC) + HCG so US done. H/o ectopic in previous . Orders: POC LABORATORY TECHNICAL SPECIALIST ULTRASOUND IUP with no pole, yolk sac appropriate size. Repeat US at NOB. Return/call prn heavier bleeding or other concerns. Patient comfortable w/ this plan. Cont. PNV. No quants indicated. Leena Becerril MD Allergies As of Date: 04/08/2025 (No Known Allergies) Date Reviewed: 04/08/2025 Reviewed by: Leena Becerril MD - Fully Assessed Reason for Visit: eary ob spotting [Other] Primary Visit Diagnosis:Vaginal bleeding affecting early ([facility]) [O20.9] Other Visit Diagnosis: with uncertain dates in first trimester ([facility]) [Z34.91] Order(s):POC LABORATORY TECHNICAL SPECIALIST ULTRASOUND [[id number]] Order #: [id number]. #:[id number] POINTQty: 1 UA DIP,URINE HCG (POC) [[id number]] Order #: [id number]. #:[id number] Prescriptions as of 04/08/2025 - PNV no.95/ferrous fum/folic ac ( ORAL) Take by mouth. Problem List As Of Date 04/08/2025 Noted Resolved Bipolar 2 disorder (HCC) [F31.81] 11/03/2022 STORMY (generalized anxiety disorder) [F41.1] 11/03/2022 Medications Discontinued During This Encounter Prescriptions - FA/mv,Ca,iron,min/lycope ne/lut (MULTIVITAL ORAL) (Discontinued) Reported on 04/08/2025 Encounter Status:Closed by LEENA BECERRIL on 04/08/25 Normal [facility] POC LABORATORY TECHNICAL SPECIALIST ULTRASOUNDon 04-08-20 Indication Confirmation of intrauterine , Vaginal bleeding Impression Single intrauterine gestational sac, yolk sac note but no embryonic pole noted. Maternal Structures: Right Ovary: Size 30 mm No adenexal masses or free fluid in the cul de sac. Recommendations Follow up for repeat ultrasound in at least 11 days to confirm viability Method Transvaginal ultrasound examination. View: Adequate visualization Prakash . Number of embryos: 1 Dating LMP on: 02/19/2025 GA by LMP 6 w + 6 d PETER by LMP: 11/26/2025 Assigned: based on the LMP, selected on 04/08/2025 Assigned GA 6 w + 6 d Assigned PETER: 11/26/2025 Biometry Extended YS 3.9 mm 16% [place] Assessment Gestational sac: visualized Location: intrauterine Yolk sac: visualized YS 3.9 mm 16% [place] Embryo: not visualized Maternal Structures Ovaries / Tubes / Adnexa Rt ovary D1 30 mm Performed By: Leena Becerril M.D. Read By: Leena Becerril M.D. MATERNAL MEDICINE [facility] Radiology Study observation (narrative) [facility] UA DIP,URINE HCG (POC)on Beta HCG ( test) Ql (U) Positive Abnormal Negative [facility] Comment on above: Location:[facility], [address], [place], [address] Interpretation and review of laboratory results Abnormal [facility] Lead Etl Developer (POCT) Internal QC OK [facility] Location:[facility], [address], [place], [address] [facility] POINT OF CARE [facility] CNOVon 02-11-2025 CNOV Office Visit (OBGYWM ) -------- MICHELLE HENDERSON ([id number]) 1985 F Date Time Provider Department 02/11/25 8:40 AM MARITA BLACKMAN OBGYWM During your visit today, we recorded the following information about you: Blood pressure Weight Last Period 102/60 99.8 kg 01/18/25 Marita Blackman MD 02/11/2025 9:02 AM Signed Building Surveyor offered: Patient declines. Michelle Henderson is a 39 year old female who presents for concerns regarding irregular bleeding since having ectiopic. Bleeding is less but pain is worse. Pt reports had methotrexate for treatment , reports for first few months normal cycles- q28 days- with flow for 5 days moderate flow. Pt reports now 1-2 days of normal flow- but then slows down to just spotting. Pt reports saw hse advisor yesterday and learned that factor 8 levels are elevated so puts her at risk for clots. Pt reports does vape nicotine products as well. Pt concerned about pain and if it is normal. Pt would like to consider and does not want to prevent it at this time. Pt has consult order already for SHEEBA. Pt offers no other concerns. 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 PNV no.95/ferrous fum/folic ac ( ORAL) Take by mouth. No current facility-administered medications for this visit. Allergies As of Date: 02/11/2025 (No Known Allergies) Fully Assessed 02/11/2025 REVIEW OF SYSTEMS Abdomen: no pain . Expanded ROS: no fever Allergies and current medication updated:Yes SENSITIVE EXAM: The sensitive examination was discussed with the Patient or Patient's Authorized Parboiler. As applicable, any other physician, advance practice provider, medical student, or other health professional student that will be observing or involved in the sensitive examination for educational or training purposes was discussed with the Patient or Authorized Parboiler. The Patient or Authorized Parboiler has agreed to proceed with the sensitive examination. (Sensitive examination includes inspection and/or palpation of the breasts, pelvis, prostate and anorectal regions). EXAM: BP 102/60 Wt 220 lb (99.8kg) LMP 01/18/2025 GENERAL: pleasant, female in no apparent distress HEENT: Normocephalic and atraumatic NECK: full range of motion DERMATOLOGY: Normal, without lesions, non-icteric, and non-hirsute CHEST: Normal inspiratory effort ABDOMEN: soft, non-tender, and no masses PELVIC: external genitalia normal, normal Bartholin's glands, urethra, [place]'s glands, no vulvar lesions, normal appearing perineal body and perianal region BIMANUAL: uterus normal size, shape and consistency, no adnexal masses, and non-tender NEURO: alert and oriented x3,exam grossly non-focal EXTREMITIES: normal ASSESSMENT AND PLAN: Assessment AND Plan Dysmenorrhea Orders: PELVIC US WHI; Future ibuprofen (MOTRIN) 600 mg tablet; Take 1 tablet by mouth every 6 hours as needed for pain. FOR PAIN. Nicotine abuse ADVISED CESSATION Fatty liver Reviewed latest AST/ALT WNL FROM 11/2024 Reviewed progesterone only options for dysmenorrhea if decides against Reviewed starting ibuprofen 24-48hrs prior to onsent of menses PNV reviewed Avoid nicotine / vaping Dicussed consult with SHEEBA Causes of dysmenorrhea reviewed Medical Decision Making: Problems: Moderate: 1+ chronic illnesses with change Data: Unique test result(s) reviewed: 1 Unique test(s) ordered: 1 Risk: Moderate: Drug management Medical Decision Making Level: 4 - Moderate Marita Jimenez MD Allergies As of Date: 02/11/2025 (No Known Allergies) Date Reviewed: 02/11/2025 Reviewed by: Izabela Álvarez MA - Fully Assessed Reason for Visit: Menstrual Problem [ (more content not included)... Normal [facility] Oncology Visit Reporton 01-22 Oncology Visit Report [facility] [address] [place] [address] OFFICE VISIT Date of Service: 02/10/25 1316 MR#: [id number] Acct: [id number] Name: MICHELLE HENDERSON Rep #: [id number] : 1985 From: Ashutosh Feliz MD Age/Sex: 39/F [place] [facility] [place]: Signed HPI Subjective Date of Service 02/10/25 Chief Complaint Abnormal blood coagulation test History of Present Illness 39-year-old female with no prior history of venous thromboembolic disease, while undergoing GI evaluation, possible eosinophilic esophagitis complained of easy bruising which prompted some coagulation tests including screening for von Willebrand disease. Her coagulation tests showed no evidence to suggest a bleeding disorder but on the contrary it showed a mildly elevated factor VIII activity of 153 (normal 56-140%) in May 2024. Repeat test ing of Factor VIII activity January 2025 showed it to be persistent at 286%. [facility] Medical History Hx of ectopic Post traumatic stress disorder (PTSD) Migraine headache Difficulty swallowing History of hiatal hernia Shortness of breath on exertion Non-smoker GERD (gastroesophageal reflux disease) Bipolar disorder Fatty liver Surgical History History of esophagogastroduodenosco py (EGD) Hx of cholecystectomy Family History Sister Bleeding disorder Cervical cancer Social History Smoking Status: Never smoker Electronic Cigarette Use: with nicotine alcohol intake: never ROS ROS Narrative Other than longstanding easy bruising she is unaware of any abnormal bleeding and has no history of venous thromboembolic disease. Intake Vital Signs 08/12/24 09:13 12/19/24 11:54 02/10/25 13:17 02/10/25 13:20 Height 5 ft 3 in 5 ft 3 in 5 ft 3 in 5 ft 3 in Weight: 100.301 kg BMI 39.2 BP 111/80 Blood Pressure Location Lt brachial Position Sitting Respiration 16 Pulse 93 Pulse Source Monitor Temp 98.9 F Temperature Source Temporal Artery Pulse Oximetry (%) 96 Oxygen Delivery Method room air Intake Is patient in pain?: No Allergies No Known Allergies Allergy (Verified 12/19/24 11:56) Have you fallen in the past year?: No Central Venous Access Central Venous Access: No Exam Physical Exam Const alert, oriented x3 and no apparent distress Coding Level of Care Code Off vis,est,level 3 Exam Problem Focused Diagnoses 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 The abnormality is persistent (tested May 2024 in January 2025. The patient was diagnosed with eosinophilic esophagitis. Factor VIII is an acute phase reactant and can be elevated in any acute or chronic inflammatory or infectious diseases. A persistent unexplained elevation of factor VIII is not a known disease entity in itself but a marker for relatively increased risk for venous thromboembolic disease. Recommendation: 1. Systemic anticoagulation is not indicated in absence of history of VTE. 2. Thromboprophylaxis is not necessary for most travelers. For long-distance travelers (more than 4-6h ) with individual risk factors for VTE, suggest thromboprophylaxis with general measures (frequent ambulation and calf exercises, avoidance of dehydration or sedatives) and graduated compression stockings. Pharmacologic thromboprophylaxis is not routinely indicated. 3. Estrogen-containing preparations ( control, replacement therapy for menopause and ovulation induction) are contraindicated. 4. Standard postoperative VTE prophylaxis. Patient seen impression and plan discussed Ashutosh Feliz MD Tack Cleaner, [facility] Divisions of Medical Oncology Hematology Department of Internal Medicine [facility] [place] [address] This note was generated using a voice recognition system software. Although it was reviewed by the author prior to finalization, it may still contain incorrect words, spelling, and punctuation that were not noted when reviewing prior to saving. If a clinically significant typo or inaccurately typed phrase is noted, please notify the author. Clinical Quality Measures Falls Risk Screening/Assistive Devices Have you fallen in the past year?: No 02/10/25 1351 Date Ashutosh Feliz MD Cosigner Sig (more content not included)... Normal [facility] Misc.on 02-07-2025 [facility] Misc. COMMENT Normal . [facility] Comment on above: Order Comment: [id number] FACTOR VIII ACTIVITY PLASMA FZ Result Comment: Test Ordered: [id number] Factor VIII Activity Factor VIII Activity 186 [H ] % BN Reference Range: 56-140 FVIII activity can increase in a variety of clinical situations including normal , in samples drawn from patients (particularly children) who are visibly stressed at the time of phlebotomy, as acute phase reactants, or in response to certain drug therapies such as DDAVP. Persistently elevated FVIII activity is a risk factor for venous thrombosis as well as recurrence of venous thrombosis. Risk is graded and increases with the degree of elevation. Although elevated FVIII activity has been identified to cluster within families, a genetic basis for the elevation has not yet been elucidated (Br J Haematol. 2012; 157:653-663). Performed at: [address] [id number] Architectural Administrative Assistant: Jessenia Malhotra MD, Phone: [phone] Performed at: [address] [id number] Architectural Administrative Assistant: Sigifredo Massey PhD, Phone: [phone]. AMENDED REPORT 02/07/25 1319 [facility].4 previously reported as: COMMENT Test Ordered: [id number] Factor VIII Activity Factor VIII Activity 186 % BN Reference Range: 56-140 FVIII activity can increase in a variety of clinical situations including normal , in samples drawn from patients (particularly children) who are visibly stressed at the time of phlebotomy, as acute phase reactants, or in response to certain drug therapies such as DDAVP. Persistently elevated FVIII activity is a risk factor for venous thrombosis as well as recurrence of venous thrombosis. Risk is graded and increases with the degree of elevation. Although elevated FVIII activity has been identified to cluster within families, a genetic basis for the elevation has not yet been elucidated (Br J Haematol. 2012; 157:653-663). Performed at: [address] [id number] Architectural Administrative Assistant: Jessenia Malhotra MD, Phone: [phone] Performed at: [address] [id number] Architectural Administrative Assistant: Sigifredo Massey PhD, Phone: [phone] Performed By: #### L 3410.9998 #### [facility] [address] [place], [address] No Panel InformationOrdered By: Ashutosh Feliz on 02-03-2025 Miscellaneous Test 4 COMMENT . [facility] Comment on above: Test Ordered: [id number] Factor VIII ActivityFactor VIII Activity 186 [H ] % BN Reference Range: 56-140FVIII activity can increase in a variety of clinicalsituations including normal , in samples drawnfrom patients (particularly children) who are visiblystressed at the time of phlebotomy, as acute phasereactants, or in response to certain drug therapies such asDDAVP. Persistently elevated FVIII activity is a riskfactor for venous thrombosis as well as recurrence ofvenous thrombosis. Risk is graded and increases with thedegree of elevation. Although elevated FVIII activity hasbeen identified to cluster within families, a genetic basisfor the elevation has not yet been elucidated (Br JHaematol. 2012; 157:653-663).Performed at: [facility] [id number] Director: Jessenia Malhotra MD, Phone: [phone] at: [address] [id number] Director: Sigifredo Massey PhD, Phone: [phone].Previous reported result: COMMENT Edited by: DAVIDA on 02/07/25:1319 AMENDED REPORT 02/07/25 1319 [facility].4 previously reported as: COMMENT Test Ordered: [id number] Factor VIII ActivityFactor VIII Activity 186 % BN Reference Range: 56-140FVIII activity can increase in a variety of clinicalsituations including normal , in samples drawnfrom patients (particularly children) who are visiblystressed at the time of phlebotomy, as acute phasereactants, or in response to certain drug therapies such asDDAVP. Persistently elevated FVIII activity is a riskfactor for venous thrombosis as well as recurrence ofvenous thrombosis. Risk is graded and increases with thedegree of elevation. Although elevated FVIII activity hasbeen identified to cluster within families, a genetic basisfor the elevation has not yet been elucidated (Br aematol. 2012; 157:653-663).Performed at: - [facility] [id number] [place], [place] [id number] Director: Jessenia Malhotra MD, Phone: [phone] at: [facility] [place] [id number] [place], [place] [id number] Director: Sigifredo Massey PhD, Phone: [phone] Emergency Department Summary on 12-19-2024 Emergency Department Summary [facility] Medical Records Department [address] [place] [id number] Emergency Department Summary 12/19/24 MR#: [id number] Acct: [id number] Name: MICHELLE HENDERSON Rep #: [id number] : 1985 39 From: Kai Lopes DO PCP: Dr. Zheng Sharif MD Status:DEP ER Location: ED HPI HPI - URI History of Present Illness Chief Complaint: Cold Sx Informant: patient Onset/Context/Timing Onset: Days (2) Context: Gradual Onset Timing: Continuous Quality: Heaviness Location: Chest Associated Symptoms Associated Symptoms: Positive for Headache, Sinus Pressure, Chest Pain and Productive Cough; Negative for Nasal Congestion, Myalgias, Nausea, Vomiting, Diarrhea, Shortness of Breath, Nonpr oductive cough or Hemoptysis Narrative Narrative: Patient presents with cough and fevers that have been getting worse over the past 2 days. Patient states her fever was up to 103.2 at home. Patient admits to a cough but denies any sputum production. Patient states she feels heaviness in her chest. Patient states nothing makes her symptoms worse and nothing makes it better. Patient admits to headache and sinus pressure. Patient states she is coughing up some yellow sputum. Patient denies any nausea or vomiting. ROS ROS ED Constitutional Constitutional ED: Reports fever(s); Denies chills Eyes Eyes: Reports blurry vision; Denies change in vision ENT ENT ED: Denies rhinorrhea or sore throat Cardiovascular Cardiovascular: Denies chest pain or palpitations Respiratory/Chest Respiratory/Chest: Reports cough; Denies dyspnea Gastrointestinal Gastrointestinal: Denies nausea or vomiting Genitourinary Genitourinary ED: Reports urinary frequency; Denies dysuria or hematuria Musculoskeletal Musculoskeletal: Denies back pain or neck pain Integumentary Denies abscess or rash Neurologic Neurologic: Reports headache(s); Denies weakness Allergic/Immunologic Allergic/Immunologic ED: Denies mouth swelling or urticaria PFSH PFSH Medical History Hx of ectopic Post traumatic stress disorder (PTSD) Migraine headache Difficulty swallowing History of hiatal hernia Shortness of breath on exertion Non-smoker GERD (gastroesophageal reflux disease) Bipolar disorder Fatty liver Allergy/AdvReac Type Severity Reaction Status Date / Time No Known Allergies Allergy Verified 12/19/24 11:56 Family History Sister Bleeding disorder Cervical cancer Surgical History History of esophagogastroduodenosco py (EGD) Hx of cholecystectomy Social History Smoking Status: Never smoker Electronic Cigarette Use: with nicotine alcohol intake: never EXAM Physical Exam Const Vital Signs: 12/19/24 11:54 Temperature 98.4 F Temperature Source Temporal Pulse Rate 89 Respiratory Rate 16 Blood Pressure 135/83 H Blood Pressure Mean 100 Pulse Ox 99 Oxygen Delivery Method Room Air Positive well nourished and well developed General Appearance ED: well developed and NAD HEENT Reports moist mucous membranes normocephalic Throat: posterior oropharynx normal Neck supple, no meningeal signs and no JVD Resp normal respiratory effort and clear to auscultation bilaterally Cardio Rate: regular rate Rhythm: regular rhythm GI non-tender and non-distended Palpation: soft Neuro oriented x3, CN's II-XII intact bilaterally and no sensory deficits noted Sensorium / Orientation: alert Motor Exam: strength 5/5 throughout MDM MDM MDM Narrative Medical decision making narrative: Differential diagnosis includes influenza, COVID, and RSV. COVID-19, influenza, and RSV PCR will be obtained to assess for viral illness. Lab Data Lab results narrative: COVID-19 PCR was reviewed and was negative. Influenza PCR was reviewed and was positive for influenza A and negative for influenza B. RSV PCR was reviewed and was negative. Treatment and Re-Evaluation Narrative: Patient was advised of her findings. Patient is outside the window for Tamiflu. Patient was given a note for work. Patient was instructed to take Tylenol or ibuprofen as needed for any fevers or pain. Patient was instructed to drink plenty of fluids. Patient was instructed to follow-up with her primary care physician in 5 to 7 days. Discharge Plan Triage Chief Complaint: Cold Sx ED Provider: Kai Lopes Dx/Rx/DC Orders Clinical Impression: Influenza A, Elevated blood pressure reading without diagnosis of hypertension Instructions: ED Influenza (Adult) Prescriptions: No Action pantoprazole [Protonix] 20 mg tablet,delayed release (DR/EC) 20 mg PO BI (more content not included)... Normal [facility] M100.678on 12-19-2024 SARS-CoV-2 (COVID-19) Ab IA Ql Normal Reference Range = Negative FLUABV+SARS-CoV-2+RSV Pnl Resp REAGAN+probe GeneXpert Instrument, PCR method CRITICAL VALUE CALLED TO USHA TIMMONS (ER) 12/19/24 125[address]. RESULTS READ BACK BY SAME. SARS-CoV-2 (COVID 19) Negative INFLUENZA A A Positive A INFLUENZA B Negative RSV PCR Negative INFLUENZAE A Normal [facility] Comment on above: Performed By: #### M 100.678 ####[id number] [facility] [place], [address] EGD Reporton 08-14-2024 EGD Report [facility] Medical Records Department [address] [place] [address] EGD Report MR#: [id number] Acct: [id number] Name: MICHELLE HENDERSON Rep #: [id number] : 1985 39 From: Adilson Cobb DO PCP: Dr. Zheng Sharif MD Status:REG [facility] Patient Name: Michelle Henderson Procedure Date: 08/14/2024 6:10 AM Date of : 1985 Age: 39 Procedure: Upper GI endoscopy Indications: Epigastric abdominal pain Providers: Adilson Cobb DO Referring MD: Zheng Sharif Medicines: Monitored Anesthesia Care Patient Profile: This is a 39 year old female. Refer to note in patient chart for documentation of history and physical. Patient has symptoms of dysphagia with both liquids and solids. Complications: No immediate complications. Procedure: Pre-Anesthesia Assessment: - Prior to the procedure, a History and Physical was performed, and patient medications and allergies were reviewed. The patient is competent. The risks and benefits of the procedure and the sedation options and risks were discussed with the patient. All questions were answered and informed consent was obtained. Patient identification and proposed procedure were verified by the physician. Mental Status Examination: alert and oriented. Airway Examination: normal oropharyngeal airway and neck mobility. Respiratory Examination: clear to auscultation. CV Examination: normal. Prophylactic Antibiotics: The patient does not require prophylactic antibiotics. Prior Anticoagulants: The patient has taken no anticoagulant or antiplatelet agents except for NSAID medication. ASA Grade Assessment: II - A patient with mild systemic disease. After reviewing the risks and benefits, the patient was deemed in satisfactory condition to undergo the procedure. The anesthesia plan was to use moderate sedation / analgesia (conscious sedation). Immediately prior to administration of medications, the patient was re-assessed for adequacy to receive sedatives. The heart rate, respiratory rate, oxygen saturations, blood pressure, adequacy of pulmonary ventilation, and response to care were monitored throughout the procedure. The physical status of the patient was re-assessed after the procedure. After obtaining informed consent, the endoscope was passed under direct vision. Throughout the procedure, the patient's blood pressure, pulse, and oxygen saturations were monitored continuously. The gastroscope was introduced through the mouth, and advanced to the second part of duodenum. The upper GI endoscopy was accomplished without difficulty. The patient tolerated the procedure well. Scope In: 6:50:40 AM Scope Out: 6:57:38 AM Total Procedure Duration Time 0 hours 6 minutes 58 seconds Findings: The Z-line was irregular and was found 39 cm from the incisors. Biopsies were taken with a cold forceps for histology. Verification of patient identification for the specimen was done. Estimated blood loss was minimal. One benign-appearing, intrinsic mild stenosis was found in the upper third of the esophagus. The stenosis was traversed. A guidewire was placed and the scope was withdrawn. Dilation was performed with a Savary dilator with no resistance at 60 Fr. The dilation site was examined and showed moderate mucosal disruption. Estimated blood loss was minimal. Patchy mild inflammation characterized by congestion (edema) and erythema was found in the gastric body. Biopsies were taken with a cold forceps for histology. Verification of patient identification for the specimen was done. Estimated blood loss was minimal. Patchy moderate inflammation characterized by congestion (edema), erosions and erythema was found in the duodenal bulb and in the first portion of the duodenum. Biopsies were taken with a cold forceps for histology. Verification of patient identification for the specimen was done. Estimated blood loss was minimal. Impression: - Z-line irregular, 39 cm from the incisors. Biopsied. - Benign-appearing esophageal stenosis. Dilated. - Bile gastritis. Biopsied. - Bile duodenitis. Biopsied. - A lot of retained bile in the patient's stomach consistent with a new diagnosis of gastroparesis Recommendation: - Discharge patient to home. - Resume previous diet. - Continue present medications. - Await pathology results. - Try these lifestyle changes to ease your symptoms: Eat smaller meals Eat more fiber Avoid problem foods and drinks Limit or avoid alcohol Lose weight Raise the head of your bed Stay upright after eating Stop smoking Eat dinner earlier Practice relaxation techniques -You should also avoid foods like: Caffeinated and carbonated drinks Chocolate [place] foods and juices Vinegar-based dressings Onions Tomato-based foods Spicy foods Mint Procedure Code(s): --- Professional (more content not included)... Normal [facility] H Pylori (initial)on H Pylori (initial) ---- Patient Age/Sex Location Account Attending Physician MICHELLE HENDERSON/F EN [id number] Adilson Cobb DO Specimen: [id number] Received: 08/14/24 Status: ROSHAN Subramanian Num: [id number] Spec Type: IMMUNO Subm Dr: Adilson Cobb DO PHYSICIAN INSTITUTION [place] [address] SPECIMEN INFORMATION: Tissue Source: B- Gastric body biopsy Clinical Info: Hiatal hernia, eosinophilic esophagitis, hepatomegaly, nausea, alternating constipation and diarrhea Specimen Number: [id number] CPT code: 08155 METHODOLOGY: Deparaffinized sections of prefer/formalin-fixed tissue or PAP/DQ stained slides are incubated with monoclonal/polyclonal antibodies/oligonucleoti de probes. Localization is made via biotin free immunoperoxidase method. Appropriate controls are performed and reacted as expected. Results on target cell population are indicated in the following table: RESULTS: ANTIBODY / CLONE RESULT Block B H Pylori (polyclonal) negative These tests were developed and their performance characteristics determined by [facility]. They may not have been cleared or approved by the U.S. Food and Drug Administration. The FDA has determined that such clearance or approval is not necessary. The above immunohistochemical/dual ELE markers are ordered and reviewed by the Pathologist. INTERPRETATION: B. Gastric body, biopsy: Negative for Helicobacter pylori organisms. SHAWN.mr 08/15/2024 Signed (signature on file) Dr. Prasanna Layne MD 08/15/24 1331 [facility] Comment on above: Performed By: #### P H.PYLORI #### [facility] [address] [place], [address] MR/POSTOP.ANEon 08-14-2024 MR/POSTOP.[facility] Medical Records Department [address] [place] [address] Anesthesia Postop Eval I 08/14/24704 MR#: [id number] Acct: [id number] Name: MICHELLE HENDERSON Rep #: [id number] : 1985 39 From: Jamaal Sandoval PCP: Dr. Zheng Sharif MD Status:[facility] Y Race: C Location: [place] [address] Anesthesia: Postop Eval I Current Vital Signs Temperature: 97 F Pulse Rate: 97 Blood Pressure: 142/89 Respiratory Rate: 16 Pulse Ox: 99 Oxygen Delivery Method: Room Air Assessment Airway patent: Yes Spontaneous unlabored respirations: Yes Mental status: Awake nausea: No Vomiting: No Anesthesia Complication: No Fluid Hydration Crystalloid volume administer (ml): 30 Total IV fluid infused: 30 Progress Note Anesthesia document: Postop Eval 1 completed: Yes 08/14/24704 Date Jamaal Louis Signature: Date CC: Signed [facility] MR/[id number] 08-14-2024 MR/POSTOPAN2 [facility] Medical Records Department [address] [place] [address] Anesthesia Postop Eval II 08/14/24804 MR#: [id number] Acct: [id number] Name: MICHELLE HENDERSON Rep #: [id number] : 1985 39 From: Dixon Armendariz MD PCP: Dr. Zheng Sharif MD Status:[facility] Y Race: C Location: EN Anesthesia Postop Eval I Sum Postop Eval Completion status Anesthesia document: Postop Eval 1 completed: Yes Anesthesia Postop Eval I Summary Anesthesia Postop Eval I Summary: Anesthesia Postop Eval I: Assessment Summary Airway patent Yes 08/14/24 07:05 [email or web address] Spontaneous unlabored Yes 08/14/24 07:05 [email or web address] respirations Mental status Awake 08/14/24 07:05 [email or web address] nausea No 08/14/24 07:05 [email or web address] Vomiting No 08/14/24 07:05 [email or web address] Anesthesia Postop Eval I: Fluid Summary Crystalloid volume administer 30 08/14/24 07:05 [email or web address] (ml) Colloids volume administered ( ml) Blood Product volume administered (ml) Total IV fluid infused 30 08/14/24 07:05 [email or web address] Anesthesia Postop Eval I: Summary Notes Anesthesia Complication No 08/14/24 07:05 [email or web address] Anesthesia Complication Comment: Post-operative progress note Anesthesia: Postop Eval II Evaluation Mental status: Awake Pain Level: 0 nausea: No Vomiting: No 08/14/24 0805 Date Dixon Armendariz MD Cosigner Signature: Date CC: Signed [facility] ,Urineon 08-14-2024 Beta HCG ( test) Ql (U) Negative Normal [facility] Comment on above: Result Comment: Very dilute urine specimens, as indicated by a low specific gravity, may not contain service liaison representative levels of hCG. If is still suspected, a first morning urine specimen should be collected 48 hours later and tested. Performed By: #### L [id number] #### [facility] [place], [place], [id number] Special Stain Group Ion 10-2 Special Stain Group I ------ Patient Age/Sex Location Account Attending Physician MICHELLE HENDERSON 39/F [place] [id number] Adilson Cobb DO Specimen: [id number] Received: 08/14/24 Status: ROSHAN Subramanian Num: [id number] Spec Type: EGD BIOPSY Wiliam Dr: Adilson Cobb DO HEADER OPERATION: EGD, biopsy, dilatation PRE-OP DIAGNOSIS: Hiatal hernia, eosinophilic esophagitis, hepatomegaly, nausea, alternating constipation and diarrhea TISSUE SUBMITTED: A- Duodenum biopsy, B- Gastric body biopsy, C- Distal esophagus biopsy MICROSCOPIC DIAGNOSIS A. Duodenum, biopsy: Fragments of duodenal mucosa with nonspecific chronic inflammation, gastric metaplasia and Emilie's gland hyperplasia. B. Gastric body, biopsy: Mild gastritis. See microscopic description and comment. C. Distal esophagus, biopsy: Fragments of gastroesophageal mucosa with chronic inflammation. Intestinal metaplasia (goblet cell metaplasia) not identified. See comment. 08/15/2024 COMMENT B. The results of immunohistochemistry for Helicobacter pylori will be reported separately ([id number]). C. Alcian blue/PAS stain with matched control is used in the evaluation of the specimen. MICROSCOPIC DESCRIPTION Slides are reviewed. B. The specimen shows fragments of gastric mucosa with chronic inflammatory cell infiltrates in the lamina propria consisting of lymphocytes and plasma cells, consistent with mild chronic gastritis. GROSS DESCRIPTION A. Received in fixative is one container labeled with the patient's name and designated Duodenum biopsy. The specimen consists of multiple irregular fragments of light avalos soft tissue that in aggregate measure 1.5 x 0.5 x 0.1 cm. The specimen is totally submitted in one cassette. B. Received in fixative is one container labeled with the patient's name and designated Gastric body biopsy. The specimen consists of multiple irregular fragments of light avalos soft tissue that in aggregate measure 1.0 x 0.8 x 0.1 cm. The specimen is totally submitted in one cassette. C. Received in fixative is one container labeled with the patient's name and designated Patient Age/Sex Location Account Attending Physician MICHELLE HENDERSON/ EN [id number] Adilson Cobb DO Distal esophagus biopsy. The specimen consists of two irregular fragments of light avalos soft tissue that in aggregate measure 0.8 x 0.5 x 0.1 cm. The specimen is totally submitted in one cassette. 08/14/2024 TC:3 [facility]:[id number] Patient Age/Sex Location Account Attending Physician MICHELLE HENDERSON 39/ EN [id number] Adilson Cobb DO Signed (signature on file) Dr. Prasanna Layne MD 08/15/24 1330 Normal [facility] Comment on above: Performed By: #### P SSI ####[facility] [address] [place], [place], [address] Oncology Visit Reporton 07-24 Oncology Visit Report [facility] [address] [place] [address] OFFICE VISIT Date of Service: 08/12/24906 MR#: [id number] Acct: [id number] Name: MICHELLE HENDERSON Rep #: [id number] : 1985 From: Ashutosh Feliz MD Age/Sex: 39/F Location: [facility] Status: Signed HPI Subjective Chief Complaint Abnormal blood coagulation test History of Present Illness 39-year-old female with no prior history of venous thromboembolic disease, while undergoing GI evaluation, possible eosinophilic esophagitis complained of easy bruising which prompted some coagulation tests including screening for von Willebrand disease. Her coagulation tests showed no evidence to suggest a bleeding disorder but on the contrary it showed a mildly elevated factor VIII activity of 153 (normal 56-140%) [facility] Medical History Post traumatic stress disorder (PTSD) Migraine headache Difficulty swallowing History of hiatal hernia Shortness of breath on exertion Non-smoker GERD (gastroesophageal reflux disease) Bipolar disorder Fatty liver Surgical History (Updated 08/12/24 @ 09:13 by Keara Menendez) History of esophagogastroduodenosco py (EGD) Hx of cholecystectomy Family History (Updated 08/12/24 @ 09:12 by Keara Menendez) Sister Bleeding disorder Cervical cancer Social History (Updated 08/12/24 @ 09:11 by Keara Menendez) Smoking Status: Never smoker Electronic Cigarette Use: with nicotine alcohol intake: never ROS ROS Narrative Other than longstanding easy bruising she is unaware of any abnormal bleeding and has no history of venous thromboembolic disease. Intake Vital Signs 12/29/23 08:17 08/12/24 09:09 08/12/24 09:13 Height 5 ft 3 in 5 ft 3 in 5 ft 3 in Weight: 88.451 kg 95.878 kg BMI 34.5 37.4 BP 111/76 Blood Pressure Location Lt brachial Position Sitting Respiration 16 Pulse 67 Pulse Source Monitor Temp 98.0 F Temperature Source Temporal Artery Pulse Oximetry (%) 100 Oxygen Delivery Method room air Intake Is patient in pain?: No Allergies No Known Allergies Allergy (Verified 08/12/24 09:10) Medications ???Medication ???Instructions ???Recorded ???Confirmed ???Type pantoprazole 20 mg tablet,delayed 20 mg PO BID 30 days #60 tabs 12/29/23 08/12/24 Rx release (Protonix) duloxetine 20 mg capsule,delayed 20 mg PO HS #30 caps 06/21/24 08/12/24 Rx release Have you fallen in the past year?: No Central Venous Access Central Venous Access: No Coding Level of Care Code Off vis,new,level 3 Exam Problem Focused Diagnoses 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 The patient was undergoing evaluation for GI illness possible eosinophilic esophagitis. Factor VIII is an acute phase reactant and can be elevated in any acute or chronic inflammatory or infectious diseases. It is not a cause for easy bruising and the patient's evaluation for possible bleeding disorder namely von Willebrand disease was negative. Recommendation: 1. Continue to follow-up with GI for workup and treatment of her symptoms. 2. Reevaluate in 6 months risk factor VIII activity as long as she is at the time is not having any ongoing active disease to see if this abnormality is persistent and explained. Persistently elevated unexplained Factor VIII activity is a marker for relatively increased risk for venous thromboembolic disease but is not a known disease entity in itself. Patient seen with her daughter impression and plan discussed Ashutosh Feliz MD Tack Cleaner, [facility] Divisions of Medical Oncology Hematology Department of Internal Medicine [place] [id number] This note was generated using a voice recognition system software. Although it was reviewed by the author prior to finalization, it may still contain incorrect words, spelling, and punctuation that were not noted when reviewing prior to saving. If a clinically significant typo or inaccurately typed phrase is noted, please notify the author. Clinical Quality Measures Falls Risk Screening/Assistive Devices Have you fallen in the past year?: No 08/12/24 0934 Date Ashutosh Feliz MD Cosigner Signature: Date (if applicable) CC: Adilson Friend, DO Normal [facility] CNCOon 06-17-2024 CNCO HNO ID: [id number] Author: COORDINATOR, MAMMOGRAPHY, ? Service: ? Author Type: Physician Type: Letter Filed: 06/17/2024 23:30 Note Text: June 18, 2024 PID: [id number] Michelle Henderson [address] [place] [phone] Dear Ms. Henderson, We are pleased to inform you that the results of your recent breast imaging exam on 06/14/2024 are normal. Breast tissue can be either dense or not dense. Dense tissue makes it harder to find breast cancer on a mammogram and also raises the risk of developing breast cancer. Your breast tissue is dense. In some people with dense tissue, other imaging tests in addition to a mammogram may help find cancers. Talk to your healthcare provider about breast density, risks for breast cancer, and your individual situation. Early detection of cancer is very important. We also understand recommendations regarding breast cancer screening are controversial. Please discuss with your primary care provider which strategy is best for you and whether a mammogram is right for you. Your imaging studies and report will be kept on file at [facility] as part of your permanent medical record and are available for your continuing care. Thank you for allowing us to help in meeting your health care needs. Sincerely, Dr. Durham Interpreting Radiologist [facility] (Normal over 40) Normal [facility] SCREENING W TOMOon 06-14 [facility] SCREENING W BERTA * * *Final Report* * * DATE OF EXAM: Jun 14 2024 9:55AM WRW [id number] - [facility] SCREENING W BERTA / PROCEDURE REASON: Encounter for screening mammogram for breast cancer * * * * Physician Interpretation * * * * RESULT: #[id number] - [facility] SCREENING W BERTA BILATERAL DIGITAL SCREENING MAMMOGRAM [...] made to exams dated: 09/17/2021 mammogram - [facility] and 09/08/2021 mammogram. The breasts are extremely [...] screening mammogram is recommended. Melvin bates/manfred:06/17/2024 23:30:37 Voice Professor(s): RT Michele(Tigist)(M), [facility] letter sent: Normal over 40 Mammogram BI-RADS: [...] Health, Family Medicine, and Medical/Surgical Oncology, the [facility] has carefully reviewed the data and [...] their providers when to stop screening mammograms. Supervisor Stitching Department: Manfred Transcribe Date/Time: Jun 14 2024 9:23A Dictated by: MELVIN DURHAM MD This examination was interpreted and the report reviewed and electronically signed by: MELVIN DURHAM MD on Jun 17 2024 11:30PM EST [id number] Normal [facility] [place] Pelvison 04-09-2024 Indication pelvic pain Impression [...] Performed By: Sarah Anthony RDMS Read By: Danita Roland M.D. MATERNAL MEDICINE [facility] Radiology Study observation (narrative) [facility] 25-hydroxyvitamin D3 [Mass/V ol]on 04-02-2024 Interpretation and review of laboratory results Normal [facility] The reference range interval was based on an analysis of samples from healthy adults and may not pertain to children from 0-18 years old. [facility] CBC panel Auto (Bld)on 04-02 Erythrocyte distribution width (RBC) [Ratio] 12.5 % 11.5 - 15.0 % [facility] Hematocrit (Bld) [Volume fraction] 43.3 % 36.0 - 46.0 % [facility] Hemoglobin (Bld) [Mass/Vol] 14.7 g/dL 11.5 - 15.5 g/dL [facility] Interpretation and review of laboratory results Normal [facility] MCH (RBC) [Entitic mass] 30.6 pg 26. 0 - 34.0 pg [facility] MCHC (RBC) [Mass/Vol] 33.9 g/dL 30.5 - 36.0 g/dL [facility] MCV (RBC) [Entitic vol] 90.0 fL 80.0 - 100.0 fL [facility] Nucleated RBC (Bld) [#/Vol] NINF [facility] Platelet mean volume (Bld) [Entitic vol] 9.7 fL 9.0 - 12.7 fL [facility] Platelets (Bld) [#/Vol] 329 10*3/uL [facility] RBC (Bld) [#/Vol] 4.81 10*6/uL 3.90 - 5.2 0 m/uL [facility] WBC (Bld) [#/Vol] 8.62 10*3/uL [facility] THYROID STIMULATING HORMONEo n 04-02-2024 TSH Qn 0.868 m[IU]/L [facility] Comment on above: If the patient [...] E, et al. 2017 Guidelines of the [place] [employer] for the Diagnosis and Management of Thyroid Disease during and the . Thyroid, 2017:27:3:315-389. TSH Qnon 04-02-2024 Interpretation and review of laboratory results Normal [facility] VITAMIN D 25 HYDROXYon 04-02 25-hydroxyvitamin D3 [Mass/Vol] 35.9 ng/mL 31.0 - 80.0 ng/mL [facility] Comment on above: Classification of 25 [place] Vitamin D status: Deficiency/Insufficiency: < or = 30 ng/ml. Sufficiency/Optimal Levels: 31-80 ng/mL Toxicity: > 100 ng/mL. Test performed by chemiluminescent immunoassay. STREP A MOLECULAR (POC)on Procedural Control Valid [facility] Strep A (POCT) Negative Negative [facility] CBC W Auto Differential pane l (Bld)on 11-23-2023 Basophils (Bld) [#/Vol] 0.03 10*3/uL <0.11 k/uL [facility] Basophils/100 WBC (Bld) 0.5 % [facility] Differential cell count method Nom (Bld) Auto [facility] Eosinophils (Bld) [#/Vol] <0.46 k/uL [facility] Eosinophils/100 WBC (Bld) 0.4 % [facility] Erythrocyte distribution width (RBC) [Ratio] 13.1 % 11.5 - 15.0 % [facility] Hematocrit (Bld) [Volume fraction] 37.2 % 36.0 - 46.0 % [facility] Hemoglobin (Bld) [Mass/Vol] 12.5 g/dL 11.5 - 15.5 g/dL [facility] Immature granulocytes (Bld) [#/Vol] <0.10 k/uL [facility] Immature granulocytes/100 WBC (Bld) 0.2 % [facility] Lymphocytes (Bld) [#/Vol] 1.55 10*3/uL 1.00 - 4.00 k/uL [facility] Lymphocytes/100 WBC (Bld) 28.3 % [facility] MCH (RBC) [Entitic mass] 30.0 pg 26. 0 - 34.0 pg [facility] MCHC (RBC) [Mass/Vol] 33.6 g/dL 30.5 - 36.0 g/dL [facility] MCV (RBC) [Entitic vol] 89.4 fL 80.0 - 100.0 fL [facility] Monocytes (Bld) [#/Vol] 0.36 10*3/uL <0.87 k/uL [facility] Monocytes/100 WBC (Bld) 6.6 % [facility] Neutrophils (Bld) [#/Vol] 3.51 10*3/uL 1.45 - 7.50 k/uL [facility] Neutrophils/100 WBC (Bld) 64.0 % [facility] Nucleated RBC (Bld) [#/Vol] <0.01 k/uL [facility] Nucleated RBC/100 WBC (Bld) [Ratio] 0.0 /100 WBC [facility] Platelet mean volume (Bld) [Entitic vol] 9.8 fL 9.0 - 12.7 fL [facility] Platelets (Bld) [#/Vol] 280 10*3/uL 150 - 400 k/uL [facility] RBC (Bld) [#/Vol] 4.16 10*6/uL 3.90 - 5.2 0 m/uL [facility] WBC (Bld) [#/Vol] 5.48 10*3/uL 3.70 - 11. 00 k/uL [facility] Comprehensive metabolic 2000 panelon 11-23-2023 Albumin [Mass/Vol] 4.1 g/dL 3.9 - 4.9 g/dL [facility] ALP [Catalytic activity/Vol] 64 U/L 34 - 123 U/L [facility] ALT [Catalytic activity/Vol] 53 U/L High 7 - 38 U/L [facility] Anion gap [Moles/Vol] 7 mmol/L Low 9 - 18 mmol/L [facility] AST [Catalytic activity/Vol] 28 U/L 13 - 35 U/L [facility] Bilirubin [Mass/Vol] 0.2 mg/dL 0.2 - 1 .3 mg/dL [facility] Calcium [Mass/Vol] 9.2 mg/dL 8.5 - 10. 2 mg/dL [facility] Chloride [Moles/Vol] 106 mmol/L High 97 - 10 5 mmol/L [facility] CO2 [Moles/Vol] 26 mmol/L 22 - 30 mmol/L [facility] Creatinine [Mass/Vol] 0.81 mg/dL 0.58 - 0.96 mg/dL [facility] Estimated Glomerular Filtration Rate 95 mL/min/1.73m >=60 mL/min/1.73m [facility] Glucose [Mass/Vol] 97 mg/dL 74 - 99 mg/dL [facility] Potassium [Moles/Vol] 3.8 mmol/L 3.7 - 5.1 mmol/L [facility] Protein [Mass/Vol] 6.3 g/dL 6.3 - 8.0 g/dL [facility] Sodium [Moles/Vol] 139 mmol/L 136 - 144 mmol/L [facility] Urea nitrogen [Mass/Vol] 10 mg/dL 7 - 21 mg/d L [facility] OBSTETRIC ULTRASOUND WHIon 0 11-23-2023 [facility] TYPE + SCREEN PRENATALon ABO group Nom (Bld) A [facility] Blood group antibody screen Ql Negative [facility] HIstorical Ab Scr Status Negative [facility] Rh Nom (Bld) Positive [facility] Type and Screen Expiration 11/26/2023 23:59 [facility] Absolute lymphocyte countOrd ered By: Vasiliy Benitez on 11-12-2023 Lymphocytes Auto (Unsp spec) [#/Vol] 1.55 10*3/uL 0.83-4.51 [facility] Automated lymphocyte count a s percentage of total leukocytesOrdered By: Vasiliy Benitez on 11-12-2023 Lymphocytes/100 WBC Auto (Unsp spec) 25.9 % 19-41 [facility] Basophil percentageOrdered B y: Vasiliy Benitez on 11-12-2023 Basophil percentage 0 SEEN /hpf 0-5 [facility] Basophils/100 WBC (Bld) 0.3 % 0-1 [facility] Eosinophils/100 WBC (Bld) 1.0 % 0-5 [facility] Hemoglobin (Bld) [Mass/Vol] 13.0 g/dL 12.0-15.0 [facility] Monocytes/100 WBC (Bld) 8.0 % 0-10 [facility] Neutrophils (Bld) [#/Vol] 3.9 10*3/uL 2.0-7.7 [facility] Neutrophils/100 WBC (Bld) 64.5 % 47-70 [facility] WBC (Bld) [#/Vol] 6.0 10*3/uL 4.4-11.0 [facility] Bilirubin Test strip Ql (U)O rdered By: Vasiliy Benitez on 11-12-2023 Bilirubin Ql (U) Negative Negative [facility] Determination of erythrocyte mean corpuscular volume (MCV)Ordered By: Vasiliy Benitez on 11-12-2023 MCV (RBC) [Entitic vol] 89.9 fL 81-99 [facility] Erythrocyte distribution wid th ratioOrdered By: Vasiliy Benitez on 11-12-2023 Erythrocyte distribution width (RBC) [Ratio] 12.8 % 11.6-14.6 [facility] Erythrocyte distribution wid th standard deviationOrdered By: Vasiliy Benitez on 11-12-2023 Erythrocyte distribution width (RBC) [Entitic vol] 42.2 fL 35.1-43.9 [facility] Hematocrit Auto (Bld) [Volum e fraction]Ordered By: Vasiliy Benitez on 11-12-2023 Hematocrit (Bld) [Volume fraction] 39.2 % 37-47 [facility] Immature granulocytes/100 WB C Auto (Bld)Ordered By: Vasiliy Benitez on 11-12-2023 Immature granulocytes/100 WBC (Bld) 0.300 % 0.0-0.9 [facility] Comment on above: IG% - Immature Granu locytes (promyelocytes, myelocytes and metamyelocytes) > 1% indicates that a LEFT SHIFT is Present. Ketones Test strip Ql (U)Ord ered By: Vasiliy Benitez on 11-12-2023 Ketones Ql (U) Negative Negative [facility] - Hematology and Cell countsOrdered By: Vasiliy Benitez on 11-12-2023 MCH (RBC) [Entitic mass] 29.8 pg 27.0-32.0 [facility] MCHC (RBC) [Mass/Vol] 33.2 g/dL 32-36 [facility] Nucleated RBC/100 WBC (Bld) [Ratio] 0 % 0-5 [facility] Platelets (Bld) [#/Vol] 261 10*3/uL 150-450 [facility] Mucus LM Ql (Urine sed)Order ed By: Vasiliy Benitez on 11-12-2023 Mucus Ql (Urine sed) 0 SEEN /hpf [facility] Nitrite Test strip Ql (U)Ord ered By: Vasiliy Benitez on 11-12-2023 Nitrite Ql (U) Negative Negative [facility] No Panel InformationOrdered By: Vasiliy Benitez on 11-12-2023 Urine RBC 0 SEEN /hpf 0-5 [facility] Platelet mean volume Bob-Ec ker (Bld) [Entitic vol]Ordered By: Vasiliy Benitez on 11-12-2023 Platelet mean volume (Bld) [Entitic vol] 10.4 fL 6.2-12.0 [facility] Protein Test strip Ql (U)Ord ered By: Vasiliy Benitez on 11-12-2023 Protein Ql (U) 15 mg/dl Negative [facility] RBC Auto (Bld) [#/Vol]Ordere d By: Vasiliy Benitez on 11-12-2023 RBC (Bld) [#/Vol] 4.36 10*6/uL 4.2-5.4 [facility] Serum or plasma choriogonado tropin detectionOrdered By: Vasiliy Benitez on 11-12-2023 HCG ( test) Ql 403 mIU/mL <4 [facility] Comment on above: hCG levels with Gest ational AgeGestational Age hCG mIU/mL (IU/L)0.2 - 1 week 5 - 501-2 weeks 50 - 5002-3 weeks 100 - 40979-0 weeks 500 - 499102-8 weeks 1000 - 156848-5 weeks 44804 - 100,0006-8 weeks 91452 - 200,0002-3 months 88491 - 100,000 Squamous epithelial cells de tection in urine sediment by light microscopyOrdered By: Vasiliy Benitez on 11-12-2023 Epithelial cells.squamous LM Ql (Urine sed) 0-5 SEEN /hpf 5-10 [facility] Urine blood detectionOrdered By: Vasiliy Benitez on 11-12-2023 RBC Ql (U) 25 /ul Negative [facility] Urine clarityOrdered By: Lulu Benitez on 11-12-2023 Clarity (U) Sl. Cloudy Clear [facility] Urine color determinationOrd ered By: Vasiliy Benitez on 11-12-2023 Color (U) Yellow Yellow [facility] Urine glucose detectionOrder ed By: Vasiliy Benitez on 11-12-2023 Glucose Ql (U) Normal mg/dl Normal [facility] Urine leukocyte esterase det ection by dipstickOrdered By: Vasiliy Benitez on 11-12-2023 Leukocyte esterase Test strip Ql (U) Negative Negative [facility] Urine pHOrdered By: Vasiliy roach on 11-12-2023 pH (U) 6.0 [pH] 5.0 - 8.0 [facility] Urine sediment bacteria coun t by microscopy (number/high power field)Ordered By: Vasiliy Benitez on 11-12-2023 Bacteria LM.HPF (Urine sed) [#/Area] 0 /[HPF] None Seen [facility] Urine specific gravity measu rementOrdered By: Vasiliy Benitez on 11-12-2023 Specific gravity (U) [Rel density] 1.015 1.002-1.030 [facility] Urine urobilinogen measureme ntOrdered By: Vasiliy Benitez on 11-12-2023 Urobilinogen Ql (U) Normal mg/dl Normal [facility] Laboratory - Chemistry and C hemistry - challengeOrdered By: Kai Lundy on 08-09-2023 HCG ( test) Ql (U) Negative [facility] Comment on above: Very dilute urine sp ecimens, as indicated by a low specificgravity, may not contain service liaison representative levels of hCG. If is still suspected, a first morning urinespecimen should be collected 48 hours later and tested. Chocolate RASTOrdered By: Ra shaikh Friend on 02-20-2023 Chocolate IgE Qn (S) <0.10 kU/L Class 0 [facility] Comment on above: Performed at: [address] [id number] Director: Jessenia Malhotra MD, Phone: [phone] Laboratory - Miscellaneous t estsOrdered By: Adilson Cobb on 02-20-2023 Service comment (Unsp spec) [Interp] Comment . [facility] Comment on above: Levels of Specific I gE Class Description of Class ----- < 0.10 0 Negative 0.10 - 0.31 0/I Equivocal/Low 0.32 - 0.55 I Low 0.56 - 1.40 II Moderate 1.41 - 3.90 III High 3.91 - 19.00 IV Very High 19.01 - 100.00 V Very High >100.00 Very High No Panel InformationOrdered By: Adilson Cobb on 02-20-2023 [employer] Allergens (RAST) Negative . [facility] Comment on above: Allergens in this mi x are: Blue mussel Fish [place] Shrimp Tuna Serum beef IgE antibody assa y (units/volume)Ordered By: Adilson Cobb on 02-20-2023 Beef IgE Qn (S) <0.10 kU/L Class 0 [facility] Serum corn IgE antibody assa y (units/volume)Ordered By: Adilson Cobb on 02-20-2023 Emporium IgE Qn (S) <0.10 kU/L Class 0 [facility] Serum cow milk IgE antibody assay (units/volume)Ordered By: Adilson Cobb on 02-20-2023 Cow milk IgE Qn (S) <0.10 kU/L Class 0 [facility] Serum or plasma gastrin robert urement (mass/volume)Ordered By: Adilson Cobb on 02-20-2023 Gastrin [Mass/Vol] < 10 pg/mL 0-115 [facility] Comment on above: Siemens Immulite 200 0 Immunochemiluminometric assay (ICMA)Values obtained with different assay methods or kits cannotbe used interchangeably. Results cannot be interpreted asabsolute evidence of the presence or absence of malignantdisease.Performed at: [address] [id number] Director: Jessenia Malhotra MD, Phone: [phone] Serum peanut IgE antibody as say (units/volume)Ordered By: Adilson Cobb on 02-20-2023 Peanut IgE Qn (S) <0.10 kU/L Class 0 [facility] Serum pork IgE antibody assa y (units/volume)Ordered By: Adilson Cobb on 02-20-2023 Pork IgE Qn (S) <0.10 kU/L Class 0 [facility] Serum soybean IgE antibody a ssay (units/volume)Ordered By: Adilson Cobb on 02-20-2023 Soybean IgE Qn (S) <0.10 kU/L Class 0 [facility] Serum wheat IgE antibody ass ay (units/volume)Ordered By: Adilson Cobb on 02-20-2023 Wheat IgE Qn (S) <0.10 kU/L Class 0 [facility] Serum whole egg IgE antibody assay (units/volume)Ordered By: Adilson Cobb on 02-20-2023 Whole Egg IgE Qn (S) <0.10 kU/L Class 0 [facility] Laboratory - Chemistry and C hemistry - challengeOrdered By: Dr. Rizzo on 01-30-2023 HCG ( test) Ql (U) Negative [facility] Comment on above: Very dilute urine sp ecimens, as indicated by a low specificgravity, may not contain service liaison representative levels of hCG. If is still suspected, a first morning urinespecimen should be collected 48 hours later and tested. PRIYANKA SHAMEKA HAMPTON RTon 023 [facility] Absolute lymphocyte countOrd ered By: Tra Bruce on 12-29-2022 Lymphocytes Auto (Unsp spec) [#/Vol] 2.95 10*3/uL 0.83-4.51 [facility] Basophil percentageOrdered B y: Tra Bruce on 12-29-2022 Basophils/100 WBC (Bld) 0.5 % 0-1 [facility] Bilirubin [Mass/Vol] 0.30 mg/dL 0.20-1.00 [facility] Comment on above: For patients on eltr ombopag therapy, use of Dimension [place] TBIL is not recommended. Chloride [Moles/Vol] 108 mmol/L 98-107 [facility] Eosinophils/100 WBC (Bld) 0.6 % 0-5 [facility] Glucose [Mass/Vol] 95 mg/dL 74-106 [facility] Neutrophils (Bld) [#/Vol] 6.2 10*3/uL 2.0-7.7 [facility] Neutrophils/100 WBC (Bld) 63.9 % 47-70 [facility] Potassium [Moles/Vol] 3.6 mmol/L 3.5-5.1 [facility] Protein [Mass/Vol] 7.5 g/dL 6.4-8.2 [facility] Sodium [Moles/Vol] 141 mmol/L 136-145 [facility] WBC (Bld) [#/Vol] 9.7 10*3/uL 4.4-11.0 [facility] Beta hCG serum qualOrdered B y: Tra Bruce on 12-29-2022 Beta HCG ( test) Ql Negative [facility] Blood erythrocytes count (nu mber/volume)Ordered By: Tra Bruce on 12-29-2022 RBC (Bld) [#/Vol] 4.66 10*6/uL 4.2-5.4 [facility] Blood hemoglobin measurement (mass/volume)Ordered By: Tra Bruce on 12-29-2022 Hemoglobin (Bld) [Mass/Vol] 13.9 g/dL 12.0-15.0 [facility] Blood lymphocytes/100 leukoc ytesOrdered By: Tra Bruce on 12-29-2022 Lymphocytes/100 WBC (Bld) 30.4 % 19-41 [facility] Blood monocytes/100 leukocyt esOrdered By: Tra Bruce on 12-29-2022 Monocytes/100 WBC (Bld) 4.3 % 0-10 [facility] Blood platelet mean volumeOr dered By: Tra Bruce on 12-29-2022 Platelet mean volume (Bld) [Entitic vol] 10.3 fL 6.2-12.0 [facility] Determination of erythrocyte mean corpuscular volume (MCV)Ordered By: Tra Bruce on 12-29-2022 MCV (RBC) [Entitic vol] 91.8 fL 81-99 [facility] Direct bilirubinOrdered By: Tra Bruce on 12-29-2022 Bilirubin.direct [Mass/Vol] 0.11 mg/dL 0.00-0.30 [facility] Hematocrit Auto (Bld) [Volum e fraction]Ordered By: Tra Bruce on 12-29-2022 Hematocrit (Bld) [Volume fraction] 42.8 % 37-47 [facility] Laboratory - Chemistry and C hemistry - challengeOrdered By: Tra Bruce on 12-29-2022 ALP [Catalytic activity/Vol] 51 U/L 45-117 [facility] ALT [Catalytic activity/Vol] 20 U/L 13-56 [facility] CO2 [Moles/Vol] 26.0 mmol/L 21.0-32.0 [facility] Globulin (S) [Mass/Vol] 3.6 g/dL 2.2-4.2 [facility] Lipase [Catalytic activity/Vol] 212 U/L 73-393 [facility] Urea nitrogen/Creatinine [Mass ratio] 16.6 mg/mg 10-20 [facility] Laboratory - Hematology and Cell countsOrdered By: Tra Bruce on 12-29-2022 Erythrocyte distribution width (RBC) [Entitic vol] 41.5 fL 35.1-43.9 [facility] Erythrocyte distribution width (RBC) [Ratio] 12.4 % 11.6-14.6 [facility] Immature granulocytes/100 WBC (Bld) 0.300 % 0.0-0.9 [facility] Comment on above: IG% - Immature Granu locytes (promyelocytes, myelocytes and metamyelocytes) > 1% indicates that a LEFT SHIFT is Present. MCH (RBC) [Entitic mass] 29.8 pg 27.0-32.0 [facility] Nucleated RBC/100 WBC (Bld) [Ratio] 0 % 0-5 [facility] MCHC Auto (RBC) [Mass/Vol]Or dered By: Tra Bruce on 12-29-2022 MCHC (RBC) [Mass/Vol] 32.5 g/dL 32-36 [facility] No Panel InformationOrdered By: Tra Bruce on 12-29-2022 Estimated Creatinine Clearance Calc 75.12 ml/min [facility] Estimated GFR (MDRD) Amer 97 mL/min >60 [facility] Comment on above: GFR Calc Estimated GFR (MDRD) Non-Af Amer 80 mL/min >60 [facility] Comment on above: Non- GFR Calc Platelets bldOrdered By: Ernesto Bruce on 12-29-2022 Platelets (Bld) [#/Vol] 327 10*3/uL 150-450 [facility] Serum or plasma albumin robert urement (mass/volume)Ordered By: Tra Bruce on 12-29-2022 Albumin [Mass/Vol] 3.9 g/dL 3.2-5.0 [facility] Serum or plasma calcium robert urement (mass/volume)Ordered By: Tra Bruce on 12-29-2022 Calcium [Mass/Vol] 9.2 mg/dL 8.5-10.1 [facility] Serum or plasma creatinine m easurement (mass/volume)Ordered By: Tra Bruce on 12-29-2022 Creatinine [Mass/Vol] 0.84 mg/dL 0.55-1.02 [facility] Comment on above: The validity of the calculated GFR & GFRAA in patients over 70 years has not been determined. Clinical correlation is essential. Serum or plasma urea nitroge n measurement (mass/volume)Ordered By: Tra Bruce on 12-29-2022 Urea nitrogen [Mass/Vol] 14 mg/dL 7-18 [facility] Thin prep Papanicolaou smear with manual screeningOrdered By: Tra Bruce on 12-29-2022 Thin prep Papanicolaou smear with manual screening 8 U/L 15-37 [facility] Thin prep Papanicolaou smear with manual screening 7 5-15 [facility] Absolute lymphocyte countOrd ered By: Adilson Cobb on 12-08-2022 Lymphocytes Auto (Unsp spec) [#/Vol] 1.54 10*3/uL 0.83-4.51 [facility] Atypical perinuclear antineu trophil cytoplasmic antibodies measurementOrdered By: Adilson Cobb on 12-08-2022 Neutrophil cytoplasmic Ab.perinuclear.atypical IF (S) [Titer] <1:20 titer Neg:<1:20 [facility] Comment on above: The atypical pANCA p attern has been observed in asignificant percentage of patients with ulcerative colitis,primary sclerosing cholangitis and autoimmune hepatitis. Basophil percentageOrdered B y: Adilson Cobb on 12-08-2022 Ammonia (P) [Moles/Vol] 18.0 umol/L 11-32 [facility] Basophil percentage 0.2 AI 0.0-0.9 [facility] Basophil percentage < 0.2 AI 0.0-0.9 [facility] Basophils/100 WBC (Bld) 0.3 % 0-1 [facility] Bilirubin [Mass/Vol] 0.40 mg/dL 0.20-1.00 [facility] Comment on above: For patients on eltr ombopag therapy, use of Dimension [place] TBIL is not recommended. Chloride [Moles/Vol] 109 mmol/L 98-107 [facility] Eosinophils/100 WBC (Bld) 0.8 % 0-5 [facility] Glucose [Mass/Vol] 104 mg/dL 74-106 [facility] Comment on above: Fasting Glucose resu lt from 100 to 125 mg/dL suggests IMPAIRED HOMEOSTASIS per A.D.A. criteria. LDH [Catalytic activity/Vol] 179 U/L 84-246 [facility] Neutrophils (Bld) [#/Vol] 4.5 10*3/uL 2.0-7.7 [facility] Neutrophils/100 WBC (Bld) 69.7 % 47-70 [facility] Potassium [Moles/Vol] 4.1 mmol/L 3.5-5.1 [facility] Protein [Mass/Vol] 7.6 g/dL 6.4-8.2 [facility] Sodium [Moles/Vol] 140 mmol/L 136-145 [facility] WBC (Bld) [#/Vol] 6.5 10*3/uL 4.4-11.0 [facility] Blood erythrocytes count (nu mber/volume)Ordered By: Adilson Cobb on 12-08-2022 RBC (Bld) [#/Vol] 4.53 10*6/uL 4.2-5.4 [facility] Blood hemoglobin measurement (mass/volume)Ordered By: Adilson Cobb on 12-08-2022 Hemoglobin (Bld) [Mass/Vol] 13.7 g/dL 12.0-15.0 [facility] Blood lymphocytes/100 leukoc ytesOrdered By: Adilson Cobb on 12-08-2022 Lymphocytes/100 WBC (Bld) 23.8 % 19-41 [facility] Blood monocytes/100 leukocyt esOrdered By: Adilson Cobb on 12-08-2022 Monocytes/100 WBC (Bld) 4.8 % 0-10 [facility] Blood platelet mean volumeOr dered By: Adilson Cobb on 12-08-2022 Platelet mean volume (Bld) [Entitic vol] 11.2 fL 6.2-12.0 [facility] Determination of erythrocyte mean corpuscular volume (MCV)Ordered By: Adilson Cobb on 12-08-2022 MCV (RBC) [Entitic vol] 92.9 fL 81-99 [facility] Erythrocyte sedimentation ra teOrdered By: Adilson Cobb on 12-08-2022 ESR (Bld) [Velocity] 9 mm/h 0-30 [facility] HIV 1 and HIV-2 antibody ass ay with HIV-1 p24 antigen detectionOrdered By: Adilson Cobb on 12-08-2022 HIV 1+2 Ab+HIV1 p24 Ag IA Ql Non-Reactive Nonreactive [facility] Hematocrit Auto (Bld) [Volum e fraction]Ordered By: Adilson Cobb on 12-08-2022 Hematocrit (Bld) [Volume fraction] 42.1 % 37-47 [facility] INR in Blood by Coagulation assayOrdered By: Adilson Cobb on 12-08-2022 INR Coag (Bld) [Relative time] 1.1 {INR} [facility] Laboratory - Chemistry and C hemistry - challengeOrdered By: Adilson Cobb on 12-08-2022 ALP [Catalytic activity/Vol] 55 U/L 45-117 [facility] ALT [Catalytic activity/Vol] 30 U/L 13-56 [facility] CO2 [Moles/Vol] 25.0 mmol/L 21.0-32.0 [facility] Globulin (S) [Mass/Vol] 4.0 g/dL 2.2-4.2 [facility] Urea nitrogen/Creatinine [Mass ratio] 12.7 mg/mg 10-20 [facility] Laboratory - CoagulationOrde red By: Adilson Cobb on 12-08-2022 PT Coag (PPP) [Time] 13.5 s 11.7-14.9 [facility] Laboratory - Hematology and Cell countsOrdered By: Adilson Cobb on 12-08-2022 Erythrocyte distribution width (RBC) [Entitic vol] 42.4 fL 35.1-43.9 [facility] Erythrocyte distribution width (RBC) [Ratio] 12.4 % 11.6-14.6 [facility] Immature granulocytes/100 WBC (Bld) 0.600 % 0.0-0.9 [facility] Comment on above: IG% - Immature Granu locytes (promyelocytes, myelocytes and metamyelocytes) > 1% indicates that a LEFT SHIFT is Present. MCH (RBC) [Entitic mass] 30.2 pg 27.0-32.0 [facility] Nucleated RBC/100 WBC (Bld) [Ratio] 0 % 0-5 [facility] MCHC Auto (RBC) [Mass/Vol]Or dered By: Adilson Cobb on 12-08-2022 MCHC (RBC) [Mass/Vol] 32.5 g/dL 32-36 [facility] No Panel InformationOrdered By: Adilson Cobb on 12-08-2022 Centromere B Antibody <0.2 AI 0.0-0.9 [facility] Ceruloplasmin 40.7 mg/dL 19.0-39.0 [facility] Estimated GFR (MDRD) Amer 85 mL/min >60 [facility] Comment on above: GFR Calc Estimated GFR (MDRD) Non-Af Amer 70 mL/min >60 [facility] Comment on above: Non- GFR Calc Haptoglobin 144 mg/dL 33-278 [facility] Comment on above: Performed at: [address] [id number] Director: Sigifredo Massey PhD, Phone: [phone] at: [facility] [id number] Director: Jessenia Malhotra MD, Phone: [phone] Hepatitis A IgM Antibody Negative Negative [facility] Hepatitis B Core IgM Antibody Negative Negative [facility] Hepatitis C Antibody (EIA) Non-Reactive Non Reactive [facility] Hepatitis C Antibody Comment Comment . [facility] Comment on above: Not infected with HC V unless early or acute infection issuspected (which may be delayed in an immunocompromisedindividual), or other evidence exists to indicate HCVinfection. MILLER WOOD FLOUR Antibody <0.2 AI 0.0-0.9 [facility] Platelets bldOrdered By: Pravin Cobb on 12-08-2022 Platelets (Bld) [#/Vol] 293 10*3/uL 150-450 [facility] Serum DNA double strand anti body assay (units/volume)Ordered By: Adilson Cobb on 12-08-2022 DNA double strand Ab Qn (S) [IU]/mL 0-9 [facility] Comment on above: Negative <5 Equivoca l 5 - 9 Positive >9 Serum Ivett-1 antibody assay (u nits/volume)Ordered By: Adilson Cobb on 12-08-2022 Ivett-1 extractable nuclear Ab Qn (S) <0.2 AI 0.0-0.9 [facility] Serum Scl-70 extractable nuc lear antibody assay (units/volume)Ordered By: Adilson Cobb on 12-08-2022 SCL-70 extractable nuclear Ab Qn (S) <0.2 AI 0.0-0.9 [facility] Serum Mc extractable nucl ear antibody detectionOrdered By: Adilson Cobb on 12-08-2022 Mc extractable nuclear Ab Ql (S) <0.2 AI 0.0-0.9 [facility] Serum classic neutrophil cyt oplasmic antibody assay (units/volume)Ordered By: Adilson Cobb on 12-08-2022 Neutrophil cytoplasmic Ab.classic Qn (S) <1:20 titer Neg:<1:20 [facility] Serum mitochondria antibody detectionOrdered By: Adilson Cobb on 12-08-2022 Mitochondria Ab Ql (S) <20.0 Units 0.0-20.0 [facility] Comment on above: Negative 0.0 - 20.0 Equivocal 20.1 - 24.9 Positive >24.9Mitochondrial (M2) Antibodies are found in 90-96% ofpatients with primary biliary cirrhosis.Performed at: [facility] [place], [place] [id number] Director: Sigifredo Massey PhD, Phone: [phone] Serum or plasma C reactive p rotein measurement (mass/volume)Ordered By: Adilson Cobb on 12-08-2022 CRP [Mass/Vol] 4.72 mg/L 0.0-3.0 [facility] Comment on above: C-Reactive Protein ( CRP) provides useful information for thediagnosis, therapy and monitoring of inflammatory processesand associated diseases. For the evaluation of Relative Riskfor Cardiovascular Disease, a High Sensitivity CRP (HSCRP)should be ordered. Serum or plasma actin IgG an tibody assay (units/volume)Ordered By: Adilson Cobb on 12-08-2022 Actin IgG Qn 4 Units 0-19 [facility] Comment on above: Negative 0 - 19 Weak positive 20 - 30 Moderate to strong positive >30 Actin Antibodies are found in 52-85% of patients with autoimmune hepatitis or chronic active hepatitis and in 22% of patients with primary biliary cirrhosis. Serum or plasma albumin robert urement (mass/volume)Ordered By: Adilson Cobb on 12-08-2022 Albumin [Mass/Vol] 3.6 g/dL 3.2-5.0 [facility] Serum or plasma albumin/glob ulin mass ratioOrdered By: Adilson Cobb on 12-08-2022 Albumin/Globulin [Mass ratio] 0.9 {ratio} 0.9-2.4 [facility] Serum or plasma [id number] protein tumor marker measurement (units/volume)Ordered By: Adilson Cobb on 12-08-2022 AFP.tumor marker Qn 3.2 ng/mL 0.0-6.4 [facility] Comment on above: [employer] El ectrochemiluminescence Immunoassay(ECLIA)Values obtained with different assay methods or kits cannotbe used interchangeably. Results cannot be interpreted asabsolute evidence of the presence or absence of malignantdisease.This test is not interpretable in females. Serum or plasma angiotensin converting enzyme measurement (enzymatic activity/volume)Ordered By: Adilson Cobb on 12-08-2022 Angiotensin converting enzyme [Catalytic activity/Vol] 28 U/L 14-82 [facility] Serum or plasma calcium robert urement (mass/volume)Ordered By: Adilson Cobb on 12-08-2022 Calcium [Mass/Vol] 9.2 mg/dL 8.5-10.1 [facility] Serum or plasma creatinine m easurement (mass/volume)Ordered By: Adilson Cobb on 12-08-2022 Creatinine [Mass/Vol] 0.95 mg/dL 0.55-1.02 [facility] Comment on above: The validity of the calculated GFR & GFRAA in patients over 70 years has not been determined. Clinical correlation is essential. Serum or plasma ferritin rasheeda surement (mass/volume)Ordered By: Adilson Cobb on 12-08-2022 Ferritin [Mass/Vol] 77 ng/mL 8 [facility] Serum or plasma hepatitis B virus surface antigen detection by immunoassayOrdered By: Adilson Cobb on 12-08-2022 HBV surface Ag IA Ql Negative Negative [facility] Serum or plasma urea nitroge n measurement (mass/volume)Ordered By: Adilson Cobb on 12-08-2022 Urea nitrogen [Mass/Vol] 12 mg/dL 7-18 [facility] Serum perinuclear neutrophil cytoplasmic antibody titer by immunofluorescenceOrdered By: Adilson Cobb on 12-08-2022 Neutrophil cytoplasmic Ab.perinuclear IF (S) [Titer] <1:20 titer Neg:<1:20 [facility] Comment on above: The presence of posi tive fluorescence exhibiting P-ANCA orC-ANCA patterns alone is not specific for the diagnosis ofWegener's Granulomatosis (WG) or microscopic polyangiitis.Decisions about treatment should not be based solely onANCA IFA results. The [employer] ANCA Group Consensusrecommends follow up testing of positive sera with both TN-3 and MPO-ANCA enzyme immunoassays. As many as 5% serumsamples are positive only by EIA. Ref. AM J Clin Bornar0957;111:507-513. Thin prep Papanicolaou smear with manual screeningOrdered By: Adilson Cobb on 12-08-2022 Thin prep Papanicolaou smear with manual screening 13 U/L 15-37 [facility] Thin prep Papanicolaou smear with manual screening 6 5-15 [facility] Thin prep Papanicolaou smear with manual screening 162 ug/dL 80-158 [facility] Comment on above: Detection Limit = 5 Whole blood hemoglobin A1c/t otal hemoglobin ratio (mass fraction)Ordered By: Adilson Cobb on 12-08-2022 HbA1c (Bld) [Mass fraction] 5.1 % 3.8-5.6 [facility] Comment on above: Normal < 5.7 % Predi abetic 5.7 - 6.4 % Diabetic >or= 6.5 % Please note range changes. HCG QUAL UR B/Oon 11-15-2022 status Negative neg - pos [facility] Quality Check Yes [facility] Absolute lymphocyte countOrd ered By: ED PROVIDER on 10-20-2022 Lymphocytes Auto (Unsp spec) [#/Vol] 2.08 10*3/uL 0.83-4.51 [facility] Basophil percentageOrdered B y: ED PROVIDER on 10-20-2022 Basophil percentage 0-5 SEEN /hpf 0-5 [facility] Basophils/100 WBC (Bld) 0.3 % 0-1 [facility] Chloride [Moles/Vol] 109 mmol/L 98-107 [facility] Eosinophils/100 WBC (Bld) 0.4 % 0-5 [facility] Glucose [Mass/Vol] 105 mg/dL 74-106 [facility] Comment on above: Fasting Glucose resu lt from 100 to 125 mg/dL suggests IMPAIRED HOMEOSTASIS per A.D.A. criteria. Neutrophils (Bld) [#/Vol] 5.0 10*3/uL 2.0-7.7 [facility] Neutrophils/100 WBC (Bld) 66.5 % 47-70 [facility] Potassium [Moles/Vol] 3.5 mmol/L 3.5-5.1 [facility] Sodium [Moles/Vol] 141 mmol/L 136-145 [facility] WBC (Bld) [#/Vol] 7.5 10*3/uL 4.4-11.0 [facility] Basophil percentageOrdered B y: Dr. Koch on 10-20-2022 Bilirubin [Mass/Vol] 0.30 mg/dL 0.20-1.00 [facility] Comment on above: For patients on eltr ombopag therapy, use of Dimension [place] TBIL is not recommended. Protein [Mass/Vol] 7.7 g/dL 6.4-8.2 [facility] Beta hCG serum qualOrdered B y: ED PROVIDER on 10-20-2022 Beta HCG ( test) Ql Negative [facility] Bilirubin Test strip Ql (U)O rdered By: ED PROVIDER on 10-20-2022 Bilirubin Ql (U) Negative Negative [facility] Blood erythrocytes count (nu mber/volume)Ordered By: ED PROVIDER on 10-20-2022 RBC (Bld) [#/Vol] 4.59 10*6/uL 4.2-5.4 [facility] Blood hemoglobin measurement (mass/volume)Ordered By: ED PROVIDER on 10-20-2022 Hemoglobin (Bld) [Mass/Vol] 13.7 g/dL 12.0-15.0 [facility] Blood lymphocytes/100 leukoc ytesOrdered By: ED PROVIDER on 10-20-2022 Lymphocytes/100 WBC (Bld) 27.6 % 19-41 [facility] Blood monocytes/100 leukocyt esOrdered By: ED PROVIDER on 10-20-2022 Monocytes/100 WBC (Bld) 4.9 % 0-10 [facility] Blood platelet mean volumeOr dered By: ED PROVIDER on 10-20-2022 Platelet mean volume (Bld) [Entitic vol] 11.1 fL 6.2-12.0 [facility] CNCOon 10-20-2022 CNCO Letter Text Normal [facility] Determination of erythrocyte mean corpuscular volume (MCV)Ordered By: ED PROVIDER on 10-20-2022 MCV (RBC) [Entitic vol] 90.4 fL 81-99 [facility] Direct bilirubinOrdered By: Dr. Koch on 10-20-2022 Bilirubin.direct [Mass/Vol] 0.10 mg/dL 0.00-0.30 [facility] Hematocrit Auto (Bld) [Volum e fraction]Ordered By: ED PROVIDER on 10-20-2022 Hematocrit (Bld) [Volume fraction] 41.5 % 37-47 [facility] Ketones Test strip Ql (U)Ord ered By: ED PROVIDER on 10-20-2022 Ketones Ql (U) 5 mg/dl Negative [facility] Laboratory - Chemistry and C hemistry - challengeOrdered By: Dr. Koch on 10-20-2022 ALP [Catalytic activity/Vol] 50 U/L 45-117 [facility] ALT [Catalytic activity/Vol] 58 U/L 13-56 [facility] Globulin (S) [Mass/Vol] 3.8 g/dL 2.2-4.2 [facility] Lipase [Catalytic activity/Vol] 166 U/L 73-393 [facility] Laboratory - Chemistry and C hemistry - challengeOrdered By: ED PROVIDER on 10-20-2022 CO2 [Moles/Vol] 27.0 mmol/L 21.0-32.0 [facility] Urea nitrogen/Creatinine [Mass ratio] 13.1 mg/mg 10-20 [facility] Laboratory - Hematology and Cell countsOrdered By: ED PROVIDER on 10-20-2022 Erythrocyte distribution width (RBC) [Entitic vol] 40.1 fL 35.1-43.9 [facility] Erythrocyte distribution width (RBC) [Ratio] 12.1 % 11.6-14.6 [facility] Immature granulocytes/100 WBC (Bld) 0.300 % 0.0-0.9 [facility] Comment on above: IG% - Immature Granu locytes (promyelocytes, myelocytes and metamyelocytes) > 1% indicates that a LEFT SHIFT is Present. MCH (RBC) [Entitic mass] 29.8 pg 27.0-32.0 [facility] Nucleated RBC/100 WBC (Bld) [Ratio] 0 % 0-5 [facility] MCHC Auto (RBC) [Mass/Vol]Or dered By: ED PROVIDER on 10-20-2022 MCHC (RBC) [Mass/Vol] 33.0 g/dL 32-36 [facility] Mucus LM Ql (Urine sed)Order ed By: ED PROVIDER on 10-20-2022 Mucus Ql (Urine sed) 0 SEEN /hpf [facility] Nitrite Test strip Ql (U)Ord ered By: ED PROVIDER on 10-20-2022 Nitrite Ql (U) Negative Negative [facility] No Panel InformationOrdered By: ED PROVIDER on 10-20-2022 Estimated Creatinine Clearance Calc 63.74 ml/min [facility] Estimated GFR (MDRD) Amer 80 mL/min >60 [facility] Comment on above: GFR Calc Estimated GFR (MDRD) Non-Af Amer 66 mL/min >60 [facility] Comment on above: Non- GFR Calc Platelets bldOrdered By: ED PROVIDER on 10-20-2022 Platelets (Bld) [#/Vol] 287 10*3/uL 150-450 [facility] Protein Test strip Ql (U)Ord ered By: ED PROVIDER on 10-20-2022 Protein Ql (U) 30 mg/dl Negative [facility] Serum or plasma albumin robert urement (mass/volume)Ordered By: Dr. Koch on 10-20-2022 Albumin [Mass/Vol] 3.9 g/dL 3.2-5.0 [facility] Serum or plasma calcium robert urement (mass/volume)Ordered By: ED PROVIDER on 10-20-2022 Calcium [Mass/Vol] 9.4 mg/dL 8.5-10.1 [facility] Serum or plasma creatinine m easurement (mass/volume)Ordered By: ED PROVIDER on 10-20-2022 Creatinine [Mass/Vol] 0.99 mg/dL 0.55-1.02 [facility] Comment on above: The validity of the calculated GFR & GFRAA in patients over 70 years has not been determined. Clinical correlation is essential. Serum or plasma urea nitroge n measurement (mass/volume)Ordered By: ED PROVIDER on 10-20-2022 Urea nitrogen [Mass/Vol] 13 mg/dL 7-18 [facility] Squamous epithelial cells de tection in urine sediment by light microscopyOrdered By: ED PROVIDER on 10-20-2022 Epithelial cells.squamous LM Ql (Urine sed) 0-5 SEEN /hpf 5-10 [facility] Thin prep Papanicolaou smear with manual screeningOrdered By: Dr. Koch on 10-20-2022 Thin prep Papanicolaou smear with manual screening 21 U/L 15-37 [facility] Thin prep Papanicolaou smear with manual screeningOrdered By: ED PROVIDER on 10-20-2022 Thin prep Papanicolaou smear with manual screening 5 5-15 [facility] Urine blood detectionOrdered By: ED PROVIDER on 10-20-2022 RBC Ql (U) 25 /ul Negative [facility] RBC Ql (U) 0-5 SEEN /hpf 0-5 [facility] Urine clarityOrdered By: ED PROVIDER on 10-20-2022 Clarity (U) Sl. Cloudy Clear [facility] Urine color determinationOrd ered By: ED PROVIDER on 10-20-2022 Color (U) Yellow Yellow [facility] Urine glucose detectionOrder ed By: ED PROVIDER on 10-20-2022 Glucose Ql (U) Normal mg/dl Normal [facility] Urine leukocyte esterase det ection by dipstickOrdered By: ED PROVIDER on 10-20-2022 Leukocyte esterase Test strip Ql (U) 500 /ul Negative [facility] Urine pHOrdered By: ED PROVI CLARE on 10-20-2022 pH (U) 5.0 [pH] 5.0 - 8.0 [facility] Urine sediment bacteria coun t by microscopy (number/high power field)Ordered By: ED PROVIDER on 10-20-2022 Bacteria LM.HPF (Urine sed) [#/Area] 1 /[HPF] None Seen [facility] Urine specific gravity measu rementOrdered By: ED PROVIDER on 10-20-2022 Specific gravity (U) [Rel density] 1.025 1.002-1.030 [facility] Urobilinogen Auto test strip Ql (U)Ordered By: ED PROVIDER on 10-20-2022 Urobilinogen Ql (U) Normal mg/dl Normal [facility] CNPLeeann 10-12-2022 CNPN Telephone (AGSPINE3) -------- MICHELLE HENDERSON ([id number]) 1985 F Date Time Provider Department 10/12/22 ALMITA LOWERY AGSPINE3 During your visit today, we recorded the following information about you: Edis Monge 10/12/2022 10:07 AM Signed Patients 11/10/21 appointment needs rescheduled due to provider vacation, called patient to reschedule but no answer and the VM box was full so could not leave message. I have set out a [employer] message regarding this issue. According to patients [...] Date Reviewed: 09/16/2022 Reviewed by: Salud Scruggs APRN.ADJUSTER AND INSPECTOR - Fully Assessed Reason for Visit: Appointment [186] Prescriptions as of 10/20/2022 - Desogestrel-Ethinyl Estradiol (APRI) 0.15-0.03 mg per tablet Take 1 tablet by mouth once daily. - nabumetone (RELAFEN) 500 mg tablet Take 1 tablet by mouth twice daily as needed for pain (WITH FOOD). Problem List As Of Date: 10/12/2022 (None) Encounter Status:Closed by EDIS MONGE on 10/12/22 [facility] Maria Elena 09-08-2022 SUSANNE Office Visit (SPAGWO ) -------- MICHELLE HENDERSON ([id number]) 1985 F Date Time Provider Department 09/08/22 9:00 AM ALMITA LOWERY During your visit today, we recorded the following information about you: Pulse Respiration Normal [facility] Brooke 09-08-2022 JACQUELYNN Telephone (SPAGWO) -------- MICHELLE HENDERSON ([id number]) 1985 F Date Time Provider Department 09/08/22 HILARIO GREGORY BERENICE During your visit today, we recorded the following information about you: Gwen Sussy 09/08/2022 11:32 AM Signed Sent internal referral Confirmation#: [id number] Allergies As of Date: 09/08/2022 (No Known Allergies) Date Reviewed: 09/08/2022 Reviewed by: Almita Lowery APRN.ADJUSTER AND INSPECTOR - Fully Assessed Reason for Visit: Patient [...] Of Date: 09/08/2022 (None) Encounter Status:Closed by GWEN LY on 09/08/22 [facility] XR LUMBAR GENERAL 3V AP/LAT/ L5-S1on 07-12-2022 [facility] XR Lumbar spine 3 Viewson IMPRESSION: Negative lumbosacral spine. Supervisor Stitching [facility] Trans[facility] Date/Time: Jul 12 2022 5:50P Dictated by : FLORINA BELL MD This examination was interpreted and the report reviewed and electronically signed by: FLORINA BELL MD on Jul 12 2022 5:52PM [facility] DIVISION OF RADIOLOGY * * *Final Report* [...] relevant examinations available for comparison within the [facility]. RESULT: Counting reference: Lumbosacral [...] tissues are unremarkable. DIVISION OF RADIOLOGY Provider, [facility] - 07/12/2022 * * *Final Report* * [...] relevant examinations available for comparison within the [facility]. RESULT: Counting reference: Lumbosacral [...] are unremarkable. IMPRESSION IMPRESSION: Negative lumbosacral spine. Supervisor Stitching Department: [facility] Transcribe Date/Time: Jul 12 2022 5:50P Dictated by : FLORINA BELL MD This examination was interpreted and the report reviewed and electronically signed by: FLORINA BELL MD on Jul 12 2022 5:52PM [facility] Radiology Study observation (narrative) [facility] XR Lumbar spine 3 ViewsOrder ed By: [facility] Provider on 07-12-2022 [facility] Vital Signs Date Time Vital Sign Value Performing Clinician Faci tyshawn 05-02-2025 14:04-0400 Body mass index (BMI) [Ratio] 38.91 kg/m2 Linda Sloan MD Work Phone: [facility] 05-02-2025 14:04-0400 Body weight 100.25 kg Linda Sloan MD Work Phone: [facility] 05-02-2025 14:04-0400 Diastolic blood pressure 60 mm[Hg] Linda Sloan MD Work Phone: [facility] 05-02-2025 14:04-0400 Systolic blood pressure 102 mm[Hg] Linda Sloan MD Work Phone: [facility] 04-24-2025 12:00-0400 Body temperature 97.2 [degF] Dr. Ashutosh Feliz MD Work Phone: [facility] 04-24-2025 12:00-0400 Diastolic blood pressure 69 mm[Hg] Dr. Ashutosh Feliz MD Work Phone: [facility] 04-24-2025 12:00-0400 Heart rate 76 /min Dr. Ashutosh Feliz MD Work Phone: [facility] 04-24-2025 12:00-0400 Respiratory rate 16 /min Dr. Ashutosh Feliz MD Work Phone: [facility] 04-24-2025 12:00-0400 SaO2% (BldA) [Mass fraction] 100 % Dr. Ashutosh Feliz MD Work Phone: [facility] 04-24-2025 12:00-0400 Systolic blood pressure 123 mm[Hg] Dr. Ashutosh Feliz MD Work Phone: [facility] 04-24-2025 09:47-0400 Body height 160.[address] Ashutosh Feliz MD Work Phone: [facility] 04-24-2025 09:47-0400 Body mass index (BMI) [Ratio] 39.4 kg/m2 Dr. Ashutosh Feliz MD Work Phone: [facility] 04-24-2025 09:47-0400 Body weight 100.[address] Ashutosh Feliz MD Work Phone: [facility] 04-22-2025 09:52-0400 Body mass index (BMI) [Ratio] 38.91 kg/m2 Kajal Bethea MD Work Phone: [facility] 04-22-2025 09:52-0400 Body weight 100.25 kg Kajal Bethea MD Work Phone: [facility] 04-22-2025 09:52-0400 Diastolic blood pressure 64 mm[Hg] Kajal Bethea MD Work Phone: [facility] 04-22-2025 09:52-0400 Systolic blood pressure 112 mm[Hg] Kajal Bethea MD Work Phone: [facility] 04-21-2025 08:15-0400 Body mass index (BMI) [Ratio] 39.58 kg/m2 Rani Chicago CUSTOMER ENGAGEMENT MANAGER.ADJUSTER AND INSPECTOR Work Phone: [facility] 04-21-2025 08:15-0400 Body weight 101.97 kg Rani Yovana CUSTOMER ENGAGEMENT MANAGER.ADJUSTER AND INSPECTOR Work Phone: [facility] 04-21-2025 08:15-0400 Diastolic blood pressure 68 mm[Hg] Rani Yovana CUSTOMER ENGAGEMENT MANAGER.ADJUSTER AND INSPECTOR Work Phone: [facility] 04-21-2025 08:15-0400 Systolic blood pressure 112 mm[Hg] Rani Yovana CUSTOMER ENGAGEMENT MANAGER.ADJUSTER AND INSPECTOR Work Phone: [facility] 04-08-2025 15:42-0400 Body mass index (BMI) [Ratio] 39.27 kg/m2 Leena Becerril MD Work Phone: [facility] 04-08-2025 15:42-0400 Body weight 101.15 kg Leena Becerril MD Work Phone: [facility] 02-11-2025 08:26-0400 Body mass index (BMI) [Ratio] 38.74 kg/m2 Marita Geiger MD Work Phone: [facility] 02-11-2025 08:26-0400 Body weight 99.79 kg Marita Geiger MD Work Phone: [facility] 02-11-2025 08:26-0400 Diastolic blood pressure 60 mm[Hg] Marita Geiger MD Work Phone: [facility] 02-11-2025 08:26-0400 Systolic blood pressure 102 mm[Hg] Marita Geiger MD Work Phone: [facility] 02-10-2025 13:20-0400 Body mass index (BMI) [Ratio] 39.2 kg/m2 Dr. Ashutosh Feliz MD Work Phone: [facility] 02-10-2025 13:20-0400 Body temperature 98.9 [degF] Dr. Ashutosh Feliz MD Work Phone: [facility] 02-10-2025 13:20-0400 Body weight 100.[address] Ashutosh Feliz MD Work Phone: [facility] 02-10-2025 13:20-0400 Diastolic blood pressure 80 mm[Hg] Dr. Ashutosh Feliz MD Work Phone: [facility] 02-10-2025 13:20-0400 Heart rate 93 /min Dr. Ashutosh Feliz MD Work Phone: [facility] 02-10-2025 13:20-0400 Respiratory rate 16 /min Dr. Ashutosh Feliz MD Work Phone: [facility] 02-10-2025 13:20-0400 SaO2% (BldA) [Mass fraction] 96 % Dr. Ashutosh Feliz MD Work Phone: [facility] 02-10-2025 13:20-0400 Systolic blood pressure 111 mm[Hg] Dr. Ashutosh Feliz MD Work Phone: [facility] 04-02-2024 15:12-0400 Body mass index (BMI) [Ratio] 35.6 kg/m2 Divine Cardona MD Work Phone: [facility] 04-02-2024 15:12-0400 Body weight 91.72 kg Divine Cardona MD Work Phone: [facility] 04-02-2024 15:12-0400 Diastolic blood pressure 80 mm[Hg] Divine Cardona MD Work Phone: [facility] 04-02-2024 15:12-0400 Systolic blood pressure 120 mm[Hg] Divine Cardona MD Work Phone: [facility] 02-14-2024 15:15-0400 Body mass index (BMI) [Ratio] 35.95 kg/m2 William Kraus MD Work Phone: [facility] 02-14-2024 15:15-0400 Body temperature 97.7 [degF] William Kraus MD Work Phone: [facility] 02-14-2024 15:15-0400 Body weight 92.6 kg William Kraus MD Work Phone: [facility] 02-14-2024 15:15-0400 Diastolic blood pressure 77 mm[Hg] William Kraus MD Work Phone: [facility] 02-14-2024 15:15-0400 Heart rate 59 /min William Kraus MD Work Phone: [facility] 02-14-2024 15:15-0400 Respiratory rate 18 /min William Kraus MD Work Phone: [facility] 02-14-2024 15:15-0400 SaO2% (BldA) [Mass fraction] 100 % William Kraus MD Work Phone: [facility] 02-14-2024 15:15-0400 Systolic blood pressure 120 mm[Hg] William Kraus MD Work Phone: [facility] 12-21-2023 09:53-0500 Body weight 87.54 kg Divine Cardona MD Work Phone: [facility] 12-21-2023 09:53-0500 Diastolic blood pressure 60 mm[Hg] Divine Cardona MD Work Phone: [facility] 12-21-2023 09:53-0500 Systolic blood pressure 104 mm[Hg] Divine Cardona MD Work Phone: [facility] 11-27-2023 14:01-0500 Body height 160.5 cm Aaliyah Kelly CUSTOMER ENGAGEMENT MANAGER.ADJUSTER AND INSPECTOR Work Phone: [facility] 11-27-2023 14:01-0500 Body weight 83.92 kg Aaliyah Kelly CUSTOMER ENGAGEMENT MANAGER.ADJUSTER AND INSPECTOR Work Phone: [facility] 11-27-2023 14:01-0500 Diastolic blood pressure 68 mm[Hg] Aaliyah Kelly CUSTOMER ENGAGEMENT MANAGER.ADJUSTER AND INSPECTOR Work Phone: [facility] 11-27-2023 14:01-0500 Heart rate 86 /min Aaliyah Kelly CUSTOMER ENGAGEMENT MANAGER.ADJUSTER AND INSPECTOR Work Phone: [facility] 11-27-2023 14:01-0500 Respiratory rate 16 /min Aaliyah Kelly CUSTOMER ENGAGEMENT MANAGER.ADJUSTER AND INSPECTOR Work Phone: [facility] 11-27-2023 14:01-0500 SaO2% (BldA) [Mass fraction] 98 % Aaliyah Kelly CUSTOMER ENGAGEMENT MANAGER.ADJUSTER AND INSPECTOR Work Phone: [facility] 11-27-2023 14:01-0500 Systolic blood pressure 128 mm[Hg] Aaliyah Kelly CUSTOMER ENGAGEMENT MANAGER.ADJUSTER AND INSPECTOR Work Phone: [facility] 11-23-2023 09:35-0500 Body weight 83.37 kg Linda Sloan MD Work Phone: [facility] 11-23-2023 09:35-0500 Diastolic blood pressure 66 mm[Hg] Linda Sloan MD Work Phone: [facility] 11-23-2023 09:35-0500 Systolic blood pressure 108 mm[Hg] Linda Sloan MD Work Phone: [facility] 11-13-2023 00:56-0500 Diastolic blood pressure 73 mm[Hg] Dr. Zheng Sharif Work Phone: [facility] 11-13-2023 00:56-0500 Heart rate 78 /min Dr. Zheng Sharif Work Phone: [facility] 11-13-2023 00:56-0500 Respiratory rate 15 /min Dr. Zheng Sharif Work Phone: [facility] 11-13-2023 00:56-0500 SaO2% (BldA) [Mass fraction] 99 % Dr. Zheng Sharif Work Phone: 4(515)876-274136 [place] [address] 11-13-2023 00:56-0500 Systolic blood pressure 107 mm[Hg] Dr. Zheng Sharif Work Phone: 0(321)309-648836 [place] [address] 11-12-2023 21:33-0500 Body height 161.[address] Zheng Sharif Work Phone: 9(539)503-893809 [place] [address] 11-12-2023 21:33-0500 Body mass index (BMI) [Ratio] 32.3 kg/m2 Dr. Zheng Sharif Work Phone: 1(896)077-338436 [place] [address] 11-12-2023 21:33-0500 Body temperature 97.4 [degF] Dr. Zheng Sharif Work Phone: 6(965)892-878636 [place] [address] 11-12-2023 21:33-0500 Body weight 84.[address] Zheng Sharif Work Phone: [facility] 09-08-2023 08:01-0500 Body weight 84.82 kg Aaliyah Older CUSTOMER ENGAGEMENT MANAGER.ADJUSTER AND INSPECTOR Work Phone: [facility] 09-08-2023 08:01-0500 Diastolic blood pressure 87 mm[Hg] Aaliyah Older CUSTOMER ENGAGEMENT MANAGER.ADJUSTER AND INSPECTOR Work Phone: 9(657)592-415248 [place] [address] 09-08-2023 08:01-0500 Heart rate 80 /min Aaliyah Older CUSTOMER ENGAGEMENT MANAGER.ADJUSTER AND INSPECTOR Work Phone: 6(067)389-205048 [place] [address] 09-08-2023 08:01-0500 Systolic blood pressure 136 mm[Hg] Aaliyah Older CUSTOMER ENGAGEMENT MANAGER.ADJUSTER AND INSPECTOR Work Phone: 2(554)240-961448 [place] [address] 08-09-2023 13:37-0400 Body temperature 99.4 [degF] Dr. Zheng Sharif Work Phone: 3(983)410-415009 [place] [address] 08-09-2023 13:37-0400 Diastolic blood pressure 84 mm[Hg] Dr. Zheng Sharif Work Phone: 6(949)730-033009 [place] [address] 08-09-2023 13:37-0400 Heart rate 78 /min Dr. Zheng Sharif Work Phone: 0(156)367-929609 [place] [address] 08-09-2023 13:37-0400 Respiratory rate 18 /min Dr. Zheng Sharif Work Phone: 7(708)869-824409 [place] [address] 08-09-2023 13:37-0400 SaO2% (BldA) [Mass fraction] 100 % Dr. Zheng Sharif Work Phone: 7(746)180-224809 [place] [address] 08-09-2023 13:37-0400 Systolic blood pressure 103 mm[Hg] Dr. Zheng Sharif Work Phone: 9(545)675-947709 [place] [address] 08-09-2023 12:15-0400 Body height 160.[address] Zheng Sharif Work Phone: 8(924)339-274809 [place] [address] 08-09-2023 12:15-0400 Body mass index (BMI) [Ratio] 33.5 kg/m2 Dr. Zheng Sharif Work Phone: 0(715)547-322509 [place] [address] 08-09-2023 12:15-0400 Body weight 85.[address] Zheng Sharif Work Phone: 6(167)626-514609 [place] [address] 06-16-2023 22:04-0400 Body height 160.02 cm MD Zheng MURCIA [facility] 06-16-2023 22:04-0400 Body mass index (BMI) [Ratio] 36 kg/m2 MD Zheng Sharif [facility] 06-16-2023 22:04-0400 Body temperature 96.8 [degF] MD Zheng MURCIA [facility] 06-16-2023 22:04-0400 Body weight 92.32 kg MD Zheng MURCIA [facility] 06-16-2023 22:04-0400 Diastolic blood pressure 95 mm[Hg] MD Zheng MURCIA [facility] 06-16-2023 22:04-0400 Heart rate 88 /min MD Zheng MURCIA [facility] 06-16-2023 22:04-0400 Respiratory rate 16 /min MD Zheng MURCIA [facility] 06-16-2023 22:04-0400 SaO2% (BldA) [Mass fraction] 100 % Zhengra Sharif [facility] 06-16-2023 22:04-0400 Systolic blood pressure 121 mm[Hg] MD Zheng MURCIA [facility] 05-24-2023 12:12-0400 Body height 160.[address] Adilson Cobb Work Phone: 3(469)452-392912 [place] [address] 05-24-2023 12:12-0400 Body mass index (BMI) [Ratio] 34.7 kg/m2 Dr. Adilson Cobb Work Phone: 6(806)544-729718 [place] [address] 05-24-2023 12:12-0400 Body temperature 97.8 [degF] Dr. Adilson Cobb Work Phone: 0(196)812-129612 [place] [address] 05-24-2023 12:12-0400 Body weight 89.[address] Adilson Cobb Work Phone: 3(359)958-090112 [place] [address] 05-24-2023 12:12-0400 Diastolic blood pressure 65 mm[Hg] Dr. Adilson Cobb Work Phone: 5(177)536-261112 [place] [address] 05-24-2023 12:12-0400 Heart rate 78 /min Dr. Adilson Cobb Work Phone: 8(523)582-897112 [place] [address] 05-24-2023 12:12-0400 Respiratory rate 16 /min Dr. Adilson Cobb Work Phone: [facility] 05-24-2023 12:12-0400 SaO2% (BldA) [Mass fraction] 98 % Dr. Adilson Cobb Work Phone: [facility] 05-24-2023 12:12-0400 Systolic blood pressure 130 mm[Hg] Dr. Adilson Cobb Work Phone: [facility] 01-30-2023 07:45-0400 Body temperature 97.7 [degF] MD Zheng Sharif [facility] 01-30-2023 07:45-0400 Diastolic blood pressure 80 mm[Hg] MD Zheng Sharif [facility] 01-30-2023 07:45-0400 Heart rate 61 /min MD Zheng Sharif [facility] 01-30-2023 07:45-0400 Respiratory rate 16 /min MD Zheng MURCIA [facility] 01-30-2023 07:45-0400 SaO2% (BldA) [Mass fraction] 100 % MD Zheng Sharif [facility] 01-30-2023 07:45-0400 Systolic blood pressure 115 mm[Hg] MD Zheng Sharif [facility] 01-30-2023 06:22-0400 Body height 160.02 cm MD Zheng MURCIA [facility] 01-30-2023 06:22-0400 Body mass index (BMI) [Ratio] 37.5 kg/m2 MD Zheng Sharif [facility] 01-30-2023 06:22-0400 Body weight 96 kg MD Zheng MURCIA [facility] 12-29-2022 01:00-0500 Diastolic blood pressure 79 mm[Hg] MD Zheng Sharif [facility] 12-29-2022 01:00-0500 Heart rate 67 /min MD Zheng Sharif [facility] 12-29-2022 01:00-0500 Respiratory rate 15 /min MD Zheng Sharif [facility] 12-29-2022 01:00-0500 SaO2% (BldA) [Mass fraction] 100 % MD Manra Sharif [facility] 12-29-2022 01:00-0500 Systolic blood pressure 110 mm[Hg] Zhengra Sharif [facility] 12-28-2022 22:56-0500 Body height 160.02 cm MD Zheng Sharif [facility] 12-28-2022 22:56-0500 Body mass index (BMI) [Ratio] 36.5 kg/m2 Zhengra Sharif [facility] 12-28-2022 22:56-0500 Body temperature 97.8 [degF] MD Zheng Sharif [facility] 12-28-2022 22:56-0500 Body weight 93.44 kg Zhengra Sharif [facility] 12-09-2022 10:21-0500 Body height 160 cm Zheng Sharif MD Work Phone: [facility] 12-09-2022 10:21-0500 Body temperature 99.61 [degF] Zheng Sharif MD Work Phone: [facility] 12-09-2022 10:21-0500 Body weight 95.71 kg Zheng Sharif MD Work Phone: [facility] 12-09-2022 10:21-0500 Diastolic blood pressure 70 mm[Hg] Zheng Sharif MD Work Phone: [facility] 12-09-2022 10:21-0500 Heart rate 69 /min Zheng Sharif MD Work Phone: [facility] 12-09-2022 10:21-0500 Respiratory rate 12 /min Zheng Sharif MD Work Phone: [facility] 12-09-2022 10:21-0500 SaO2% (BldA) [Mass fraction] 99 % Zheng Sharif MD Work Phone: [facility] 12-09-2022 10:21-0500 Systolic blood pressure 116 mm[Hg] Zheng Sharif MD Work Phone: [facility] 11-15-2022 13:16-0500 Body temperature 97.81 [degF] Krislyn Aberegg PA Work Phone: [facility] 11-15-2022 13:16-0500 Body weight 96.07 kg Krislyn Aberegg PA Work Phone: [facility] 11-15-2022 13:16-0500 Diastolic blood pressure 72 mm[Hg] Krislyn Aberegg PA Work Phone: [facility] 11-15-2022 13:16-0500 Heart rate 111 /min Krislyn Aberegg PA Work Phone: [facility] 11-15-2022 13:16-0500 Respiratory rate 18 /min Krislyn Aberegg PA Work Phone: [facility] 11-15-2022 13:16-0500 Systolic blood pressure 110 mm[Hg] Krislyn Aberegg PA Work Phone: [facility] 10-20-2022 23:00-0500 Heart rate 75 /min [facility] 10-20-2022 23:00-0500 Respiratory rate 15 /min [facility] 10-20-2022 23:00-0500 SaO2% (BldA) [Mass fraction] 97 % [facility] 10-20-2022 18:59-0500 Body height 160.02 cm [facility] 10-20-2022 18:59-0500 Body mass index (BMI) [Ratio] 38 kg/m2 [facility] 10-20-2022 18:59-0500 Body temperature 98.2 [degF] [facility] 10-20-2022 18:59-0500 Body weight 97.52 kg [facility] 10-20-2022 18:59-0500 Diastolic blood pressure 95 mm[Hg] [facility] 10-20-2022 18:59-0500 Systolic blood pressure 128 mm[Hg] [facility] 09-16-2022 15:27-0500 Body height 162 cm Salud Scruggs APRN.CNP Work Phone: [facility] 09-16-2022 15:27-0500 Body weight 99.52 kg Salud Scruggs APRN.ADJUSTER AND INSPECTOR Work Phone: [facility] 09-16-2022 15:27-0500 Diastolic blood pressure 80 mm[Hg] Salud Scruggs APRN.ADJUSTER AND INSPECTOR Work Phone: [facility] 09-16-2022 15:27-0500 Respiratory rate 20 /min Salud Scruggs APRN.ADJUSTER AND INSPECTOR Work Phone: [facility] 09-16-2022 15:27-0500 Systolic blood pressure 110 mm[Hg] Salud Scruggs CUSTOMER ENGAGEMENT MANAGER.ADJUSTER AND INSPECTOR Work Phone: [facility] 09-14-2022 15:40-0500 Body height 162.6 cm Zheng Sharif MD Work Phone: [facility] 09-14-2022 15:40-0500 Body temperature 99.81 [degF] Zheng Sharif MD Work Phone: [facility] 09-14-2022 15:40-0500 Body weight 97.98 kg Zheng Sharif MD Work Phone: [facility] 09-14-2022 15:40-0500 Diastolic blood pressure 72 mm[Hg] Zheng Sharif MD Work Phone: [facility] 09-14-2022 15:40-0500 Heart rate 68 /min Zheng Sharif MD Work Phone: [facility] 09-14-2022 15:40-0500 Respiratory rate 14 /min Zheng Sharif MD Work Phone: [facility] 09-14-2022 15:40-0500 SaO2% (BldA) [Mass fraction] 98 % Zheng Sharif MD Work Phone: [facility] 09-14-2022 15:40-0500 Systolic blood pressure 120 mm[Hg] Zheng Sharif MD Work Phone: [facility] 09-08-2022 09:17-0500 Heart rate 82 /min Almita Lowery APRN.ADJUSTER AND INSPECTOR Work Phone: [facility] 09-08-2022 09:17-0500 Respiratory rate 16 /min Almita Lowery CUSTOMER ENGAGEMENT MANAGER.ADJUSTER AND INSPECTOR Work Phone: [facility] 09-08-2022 09:17-0500 SaO2% (BldA) [Mass fraction] 99 % Almita Lowery CUSTOMER ENGAGEMENT MANAGER.ADJUSTER AND INSPECTOR Work Phone: [facility] 07-12-2022 15:58-0400 Body height 162.6 cm Zheng Sharif MD Work Phone: [facility] 07-12-2022 15:58-0400 Body temperature 99.39 [degF] Zheng Sharif MD Work Phone: [facility] 07-12-2022 15:58-0400 Body weight 96.16 kg Zheng Sharif MD Work Phone: [facility] 07-12-2022 15:58-0400 Diastolic blood pressure 60 mm[Hg] Zheng Sharif MD Work Phone: [facility] 07-12-2022 15:58-0400 Heart rate 101 /min Zheng Sharif MD Work Phone: [facility] 07-12-2022 15:58-0400 Respiratory rate 12 /min Zheng Sharif MD Work Phone: [facility] 07-12-2022 15:58-0400 SaO2% (BldA) [Mass fraction] 99 % Zheng Sharif MD Work Phone: [facility] 07-12-2022 15:58-0400 Systolic blood pressure 116 mm[Hg] Zheng Sharif MD Work Phone: [facility] Encounters Encounter Date Encounter Type Care Provider Facility Start: 08-12-2025 ambulatory Zheng Sharif Facility:[facility] Start: 05-06-2025 End: 05-07-2025 ambulatory Linda Sloan MD Work Phone: OB/Gynecology Comment on above: Results Start: 05-02-2025 End: 05-02-2025 Patient encounter procedure Linda Sloan MD Work Phone: OB/Gynecology Comment on above: Post-operative state (Primary Dx) Start: 05-02-2025 End: 05-02-2025 ambulatory LINDA SLOAN Facility:[facility] Start: 04-28-2025 End: 04-28-2025 Emergency department patient visit BANDAR ONTIVEROS MD [facility] Start: 04-24-2025 End: 04-24-2025 Admission to same day surgery center Dr. Linda Sloan DO [facility] Start: 04-24-2025 End: 04-24-[address] Ashutosh Feliz MD Work Phone: [facility] Start: 04-22-2025 End: 04-22-2025 Telephone encounter Nurse Stapling Machine Operator Sissy Avon Work Phone: Obstetrics/Gynecology Comment on above: PRAF Start: 04-22-2025 End: 04-22-2025 Office outpatient visit 25 minutes Kajal Bethea MD Work Phone: OB/Gynecology Comment on above: Miscarriage at 8 to 28 weeks gestation (HCC) (Primary Dx) Start: 04-22-2025 End: 04-22-2025 ambulatory KAJAL BETHEA Facility:[facility] Start: 04-21-2025 End: 04-21-2025 Telephone encounter Rani Yovana CUSTOMER ENGAGEMENT MANAGER.ADJUSTER AND INSPECTOR Work Phone: OB/Gynecology Comment on above: Appointment Start: 04-21-2025 End: 04-21-2025 Patient encounter procedure Rani [place] CUSTOMER ENGAGEMENT MANAGER.ADJUSTER AND INSPECTOR Work Phone: OB/Gynecology Comment on above: 8 weeks gestation of (HCC) (Primary Dx); SAB (spontaneous ) (HCC) Start: 04-21-2025 End: 04-21-2025 ambulatory RANI YOVANA Facility:[facility] Start: 04-15-2025 End: 04-16-2025 Telephone encounter Rani Yovana CUSTOMER ENGAGEMENT MANAGER.ADJUSTER AND INSPECTOR Work Phone: OB/Gynecology Comment on above: Appointment Start: 04-08-2025 End: 04-08-2025 Patient encounter procedure Leena Becerril MD Work Phone: OB/Gynecology Comment on above: Vaginal bleeding aff ecting early (HCC) (Primary Dx); with uncertain dates in first trimester (HCC) Start: 04-08-2025 End: 04-08-2025 ambulatory Ranimargarita AllenChicago ANNA Work Phone: OB/Gynecology Comment on above: Start: 02-14-2025 End: 04-16-2025 Follow-up encounter Marita Geiger MD Work Phone: OB/Gynecology Start: 02-11-2025 End: 02-11-2025 ambulatory MARITA GEIGER Facility:[facility] Start: 02-11-2025 End: 02-11-2025 Patient encounter procedure Marita Geiger MD Work Phone: OB/Gynecology Comment on above: Dysmenorrhea (Primar y Dx); Nicotine abuse; Fatty liver Start: 02-11-2025 End: 02-11-2025 ambulatory MARITA GEIGER Facility:[facility] Start: 02-10-2025 End: 02-10-[address] Ashutosh Feliz MD -[facility] Work Phone: Start: 02-10-2025 End: 02-10-2025 ambulatory Ashutosh Feliz Facility:[facility] Start: 02-03-[address] Rod Feliz MD -[facility] Start: 02-03-2025 ambulatory [facility] Facility:[facility] Start: 12-19-2024 End: 12-19-2024 Emergency department patient visit [facility] Facility:[facility] Start: 09-04-2024 Encounter for other preprocedural examination Adilson Cobb [facility] Start: 08-14-2024 ambulatory [facility] Facility:[facility] Start: 08-14-2024 End: 08-14-2024 ambulatory [facility] Facility:[facility] Start: 08-12-2024 End: 08-12-2024 ambulatory Ashutosh Feliz Facility:[facility] Start: 06-17-2024 End: 06-17-2024 Documentation procedure Mammography Coordinator [facility] Start: 06-17-2024 End: 06-17-2024 Letter encounter Mammography Coordinator [facility] Start: 06-14-2024 End: 06-14-2024 ambulatory ZHENG SHARIF Facility:[facility] Start: 06-14-2024 End: 06-14-2024 Subsequent hospital visit by physician [facility] Comment on above: Encounter for screen ing mammogram for breast cancer [Z12.31] Start: 06-05-2024 End: 06-10-2024 ambulatory Zheng Sharif MD Work Phone: Internal Medicine [facility] Start: 04-09-2024 End: 04-09-2024 ambulatory [facility] OB/Gynecology Start: 04-09-2024 End: 04-09-2024 Patient encounter procedure Whi Tech 1 Stapling Machine Operator [facility] OB/Gynecology Start: 04-05-2024 Telephone encounter Divine medina MD Work Phone: OB/Gynecology Comment on above: Results Start: 04-02-2024 End: 04-02-2024 Patient encounter procedure Divine Cardona MD Work Phone: OB/Gynecology Comment on above: Pelvic pain (Primary Dx); Other fatigue; Female infertility Start: 02-17-2024 End: 02-17-2024 Emergency department patient visit [facility] Facility:[facility] Start: 02-14-2024 End: 02-14-2024 Patient encounter procedure William Kraus MD Work Phone: [facility] Comment on above: Exudative tonsilliti s (Primary Dx) Start: 12-22-2023 Telephone encounter Linda agrawal MD Work Phone: OB/Gynecology Comment on above: Results Start: 12-21-2023 End: 12-21-2023 Patient encounter procedure Divine Cardona MD Work Phone: OB/Gynecology Comment on above: Hx of ectopic pregna ncy (Primary Dx) Start: 12-01-2023 Telephone encounter Linda agrawal MD Work Phone: OB/Gynecology Start: 11-27-2023 End: 11-27-2023 Patient encounter procedure Aaliyah MoreauKelly CUSTOMER ENGAGEMENT MANAGER.ADJUSTER AND INSPECTOR Work Phone: Internal Medicine [facility] Comment on above: Wellness examination (Primary Dx); Encounter for immunization; Immunity status testing Start: 11-27-2023 End: 11-27-2023 Patient encounter status Aaliyah Mendoza CUSTOMER ENGAGEMENT MANAGER.ADJUSTER AND INSPECTOR Work Phone: [facility] Work Phone: Start: 11-23-2023 End: 11-23-2023 Patient encounter procedure Stapling Machine Operator [facility] Work Phone: OB/Gynecology Comment on above: with uncer tain dates in first trimester Right tubal pregnanc y without intrauterine (Primary Dx); Right tubal , unspecified whether intrauterine present Start: 11-12-2023 End: 11-13-2023 Emergency department patient visit Dr. Zheng Sharif Work Phone: [facility] Work Phone: Start: 09-08-2023 End: 09-08-2023 Patient encounter procedure Aaliyah Pineda CUSTOMER ENGAGEMENT MANAGER.ADJUSTER AND INSPECTOR Work Phone: Internal Medicine [facility] Comment on above: Dizziness (Primary D x); Missed period Start: 08-09-2023 Non-patient / Non-visit Dr. Zehng Sharif Work Phone: [facility] Start: 08-09-2023 End: 08-09-2023 Admission to same day surgery center Dr. Zheng Sharif Work Phone: [facility] Work Phone: Start: 08-09-2023 End: 08-09-[address] Zheng Sharif Work Phone: [facility] Work Phone: Start: 07-10-2023 End: 07-10-[address] Zheng Sharif Work Phone: [facility] G[facility]enterology Work Phone: Start: 07-03-2023 Refill Salud ACOSTA RN.ADJUSTER AND INSPECTOR Work Phone: OB/Gynecology Comment on above: Refill Request Start: 06-16-2023 End: 06-16-2023 Emergency department patient visit MD Zheng Sharif [facility]Emergency [facility] Work Phone: Start: 05-24-2023 End: 05-24-2023 Emergency department patient visit Dr. Adilson Cobb Work Phone: [facility] Work Phone: Start: 04-13-2023 Refill Meredith lee APRN.ADJUSTER AND INSPECTOR Work Phone: Psychiatry Comment on above: Refill Request Start: 03-07-2023 End: 03-07-[address] Adilson Cobb Work Phone: [facility], [facility] Work Phone: Start: 02-20-2023 End: 02-20-2023 ambulatory Zhengra Sharif [facility] Work Phone: Start: 02-20-2023 End: 02-20-2023 Patient encounter procedure MD Zheng Sharif [facility] Gastroenterology Start: 01-30-2023 Non-patient / Non-visit MD Zheng Sharif [facility] Start: 01-30-2023 End: 01-30-2023 Admission to same day surgery center MD Zheng Sharif [facility]End[facility] Start: 01-30-2023 End: 01-30-2023 ambulatory MD Zheng Sharif [facility] Work Phone: Start: 01-11-2023 End: 01-11-2023 Subsequent hospital visit by physician [facility] Start: 12-28-2022 End: 12-29-2022 Emergency department patient visit MD Zheng Sharif [facility] Start: 12-12-2022 End: 12-12-2022 ambulatory Zheng [facility] Work Phone: Start: 12-12-2022 End: 12-12-2022 Patient encounter procedure MD Zheng Sharif [facility], [facility] Start: 12-09-2022 End: 12-09-2022 Patient encounter procedure Zheng Sharif MD Work Phone: Internal Medicine [facility] Comment on above: Annual physical exam (Primary Dx); Mass of right breast, unspecified quadrant Start: 12-08-2022 End: 12-08-2022 ambulatory [facility] Work Phone: Start: 12-08-2022 End: 12-08-2022 Patient encounter procedure Zheng [facility]Ul[facility], [facility] Start: 11-29-2022 End: 11-29-2022 Patient encounter procedure Zheng [facility] Start: 11-15-2022 End: 11-15-2022 Patient encounter procedure Lopez DEAN Work Phone: [facility] Comment on above: Missed menses (Prima ry Dx); Fatigue, unspecified type; Nausea Start: 10-20-2022 End: 10-20-2022 Emergency department patient visit [facility] Start: 10-12-2022 Telephone encounter Almita torres APRN.CNP Work Phone: [facility] Comment on above: Appointment Start: 09-23-2022 Telephone encounter June Pineda APRN.CNP Work Phone: [facility] Comment on above: Results Start: 09-16-2022 End: 09-16-2022 Patient encounter procedure Salud Scruggs APRN.CNP Work Phone: OB/Gynecology Comment on above: Encounter for gyneco logical examination (general) (routine) without abnormal findings (Primary Dx); General counseling and advice for contraceptive management; Screening for cervical cancer; Encounter for screening for human papillomavirus (HPV) Start: 09-16-2022 End: 09-16-2022 Patient encounter status Salud Scruggs APRN.CNP Work Phone: OB/Gynecology Start: 09-14-2022 End: 09-14-2022 Patient encounter procedure Zheng Sharif MD Work Phone: [facility] Medicine [facility] Comment on above: Annual physical exam (Primary Dx); Encounter for gynecological examination without abnormal finding; Special screening examination for viral disease; Excessive weight gain; Mood disorder (HCC) Start: 09-14-2022 End: 09-14-2022 Patient encounter status Zheng Sharif MD Work Phone: [facility] Start: 09-14-2022 Chart abstracting Taylor Fontenot [employer] Work Phone: Adult Psychology Comment on above: Behavioral Health So cial Work Start: 09-14-2022 Telephone encounter Zheng berg MD Work Phone: Family [facility] Comment on above: Appointment Start: 09-08-2022 Telephone encounter Hilario Gregory MD Work Phone: [facility] Comment on above: Patient Update (Inte rnal referral ) Start: 09-08-2022 End: 09-08-2022 ambulatory ALMITA LOWERY [facility] Start: 09-08-2022 End: 09-08-2022 Patient encounter procedure Almita Lowery APRN.ADJUSTER AND INSPECTOR Work Phone: [facility] Comment on above: Chronic bilateral lo w back pain with bilateral sciatica (Primary Dx); Other disturbances of skin sensation; Neck pain Start: 07-12-2022 End: 07-12-2022 Subsequent hospital visit by physician [facility] Work Phone: Radiology Comment on above: Chronic bilateral lo w back pain with bilateral sciatica [M54.42, M54.41, G89.29] Start: 07-12-2022 End: 07-12-2022 Patient encounter procedure Zheng Sharif MD Work Phone: Internal Medicine [facility] Comment on above: Chronic bilateral lo w back pain with bilateral sciatica (Primary Dx); Class 2 severe obesity with serious comorbidity and body mass index (BMI) of 36.0 to 36.9 in adult, unspecified obesity type (HCC) Start: 07-06-2022 Refill June Pineda CUSTOMER ENGAGEMENT MANAGER .ADJUSTER AND INSPECTOR Work Phone: [facility] Comment on above: Refill Request Start: 04-04-2022 Refill Americo GOVEAN.ADJUSTER AND INSPECTOR Work Phone: [facility] Comment on above: Refill Request Start: 02-14-2022 ambulatory Americo Galicia PRN.ADJUSTER AND INSPECTOR Work Phone: [facility] Comment on above: Panic attack questio n Start: 09-08-2021 End: 09-08-2021 Patient encounter procedure AALIYAH PINEDA ADJUSTER AND INSPECTOR [facility] Procedures Date Procedure Procedure Detail Performing Clinician Start: 04-24-2025 Dilation and curettage of uterus Dr. Doug Feliz MD Work Phone: Start: 04-21-2025 Us uterus limited 1/> fetuses Rani Yovana CUSTOMER ENGAGEMENT MANAGER.ADJUSTER AND INSPECTOR Work Phone: Start: 04-08-2025 Us uterus limited 1/> fetuses Leena Becerril MD Work Phone: Start: 04-08-2025 UA DIP,URINE HCG (POC) Leena Becerril MD Work Phone: Start: 04-09-2024 Us pelvic nonobstetric real-time image complete Divine Cardona MD Work Phone: Start: 02-14-2024 STREP A MOLECULAR (POC) William Kraus MD Work Phone: Start: 11-23-2023 Us preg uterus after 1st trimest 1/ gestation Rani [place] CUSTOMER ENGAGEMENT MANAGER.ADJUSTER AND INSPECTOR Work Phone: Start: 11-12-[address] Zheng Sharif Work Phone: Start: 08-09-[address] Zheng lee Work Phone: Start: 06-16-2023 Plain chest X-ray MD Zheng Sharif OLS Start: 03-07-[address] empt[address] study Dr[address] Adilson Cobb Work Phone: Start: 01-30-2023 Esophagogastroduodenoscopy MD Zheng MURCIA Start: 01-11-2023 Digital breast tomosynthesis unilateral Zheng Sharif MD Work Phone: Start: 12-29-2022 Computed tomography of abdomen and pelvis with intravenous contrast MD Zheng Sharif Start: 12-12-2022 Radionuclide gastric emptying study MD Marisa Sharif Start: 12-08-2022 Ultrasonography of abdomen MD Zheng berg Start: 12-08-2022 Ultrasound elastography MD Zheng Sharif Start: 11-15-2022 Urine test visual color cmprsn meths Lopez P Echo PA Work Phone: Start: 10-20-2022 Computed tomography of abdomen and pelvis with intravenous contrast Start: 07-12-2022 Radex spine lumbosacral 2/3 views Zheng Sharif MD Work Phone: Start: 01-05-2022 Adult depression screening assessment Americo Landa APRN.ADJUSTER AND INSPECTOR Work Phone: Cholecystectomy AALIYAH CHOI P Plan of Treatment Date Care Activity Detail Author Start: 11-27-2033 Urine microalbumin profile DTaP,Tdap,Td Vaccine (2 - Td or Tdap) [facility] Start: 10-01-2025 RSV Vaccine (1 - Risk 1-dose series) RSV Vaccine (1 - Risk 1-dose series) [facility] Start: 09-16-2025 HPV TESTING HPV TESTING [facility] Start: 09-16-2025 PAP TESTING PAP TESTING [facility] Start: 09-16-2025 Screening for malignant neoplasm of cervix [facility] Start: 07-24-2025 End: 07-24-2025 Patient encounter procedure 07/24/2025 10:45 AM EDT Office Visit [facility] [address] [place] [address] Kimberly Soto MD [address] [place] [address] DISCUSS RECENT MISCARRIAGE [facility] Comment on above: DISCUSS RECENT MISCARRIAGE Start: 06-23-2025 Influenza vaccination [facility] Start: 06-14-2025 Screening for malignant neoplasm of breast Mammogram Screening [facility] Start: 05-21-2025 End: 05-21-2025 Patient encounter procedure 05/21/2025 1:10 PM EDT Routine Office Visit OB/Gynecology [address] [place] [address] Leena Becerril MD [address] [place] [address] OB/Gynecology Comment on above: Start: 04-24-2025 Ambulation without limitation [facility] Start: 04-24-2025 Medical regimen orders management [facility] Start: 04-24-2025 Medication education [facility] Start: 04-24-2025 Patient discharge [facility] Start: 04-24-2025 Procedure discontinued [facility] Start: 04-24-2025 Taking patient vital signs [facility] Start: 04-24-2025 Vital signs measurements [facility] Start: 04-24-2025 End: 04-24-2025 [facility] Start: 04-22-2025 End: 04-22-2025 Patient encounter procedure 04/22/2025 10:00 AM EDT Office Visit OB/Gynecology [address] [place] [address] Kajal Bethea MD [address] [place] [address] Discuss Missed AB management OB/Gynecology Comment on above: Discuss Missed AB management Start: 04-21-2025 End: 04-21-2025 Patient encounter procedure OB/Gynecology Comment on above: Start: 02-11-2025 End: 02-11-2026 US Pelvis PELVIC US [facility] Anc Imaging Routine Dysmenorrhea Expected: 02/11/2025, Expires: 02/11/2026 [facility] Work Phone: Comment on above: Expected: 02/11/2025, Expires: Start: 11-27-2024 Covid-19 Vaccine (2 - Amy risk series) Covid-19 Vaccine (2 - Amy risk series) [facility] Comment on above: Postponed from 07/27/2021 (Declined at t his time) Start: 08-16-2024 End: 08-16-2024 Patient encounter procedure 08/16/2024 10:15 AM EDT Office Visit [facility] [address] [place] [address] Renee Foster MD [address] [place], [place] [id number] Female infertility [N97.9] [facility] Comment on above: Female infertility [N97.9] Start: 06-23-2024 Covid-19 Vaccine ( season) Covid-19 Vaccine () [facility] Start: 06-23-2024 Influenza vaccination [facility] Start: 06-18-2024 End: 06-18-2024 Patient encounter procedure 06/18/2024 2:00 PM EDT Office Visit [facility] [address] [place] [address] Renee Foster MD [address] [place], [place] [id number] Female infertility [N97.9] [facility] Comment on above: Female infertility [N97.9] Start: 06-14-2024 End: 06-14-2024 Patient encounter procedure 06/14/2024 9:30 AM EDT Appointment Mammogram [address] [place] [address] Mammogram Start: 2024 Screening for malignant neoplasm of breast Mammogram Screening [facility] Start: 04-21-2024 Influenza vaccination Influenza Vaccine (#1) [facility] Comment on above: Postponed from 06/23/2023 (Declined at t his time) Start: 04-09-2024 End: 04-09-2024 Manual pelvic examination 04/09/2024 8:30 AM EDT Procedure OB/Gynecology [address] [place] [address] Pelvic pain [R10.2] OB/Gynecology Comment on above: Pelvic pain [R10.2] Start: 04-02-2024 End: 04-02-2025 US Pelvis PELVIC US [facility] Anc Imaging Routine Pelvic pain Expected: 04/02/2024, Expires: 04/02/2025 [facility] Work Phone: Comment on above: Expected: 04/02/2024, Expires: 5 Start: 12-28-2023 End: 03-28-2024 Choriogonadotropin.beta subunit [Units/volume] in Serum or Plasma HCG QUANTITATIVE Lab Routine Hx of ectopic Right tubal without intrauterine Expected: 12/28/2023, Expires: 03/28/2024 [facility] Work Phone: Comment on above: Expected: 12/28/2023, Expires: 4 Start: 11-27-2023 End: 02-26-2024 MUMPS IGG AB [facility] Work Phone: Comment on above: Expected: 11/27/2023, Expires: 4 Start: 11-27-2023 End: 02-26-2024 RUBELLA IGG AB [facility] Work Phone: Comment on above: Expected: 11/27/2023, Expires: 4 Start: 11-27-2023 End: 02-26-2024 RUBEOLA (MEASLES)IGG [facility] Work Phone: Comment on above: Expected: 11/27/2023, Expires: 4 Start: 11-13-2023 [facility] Start: 10-23-2023 Behavioral Health Screening Behavioral Health Screening [facility] Start: 10-23-2023 Depression Assessment Depression Assessment [facility] Start: 09-08-2023 End: 12-08-2023 CBC W Auto Differential panel - Blood [facility] Work Phone: Comment on above: Expected: 09/08/2023, Expires: Start: 09-08-2023 End: 12-08-2023 Choriogonadotropin.beta subunit [Units/volume] in Serum or Plasma [facility] Work Phone: Comment on above: Expected: 09/08/2023, Expires: 4 Start: 09-08-2023 End: 12-08-2023 Comprehensive metabolic 2000 panel - Serum or Plasma [facility] Work Phone: Comment on above: Expected: 09/08/2023, Expires: Start: 08-09-2023 Egd transoral biopsy single/multiple EGD BIOPSY SINGLE/MULTIPLE [facility] Start: 08-09-2023 Patient discharge [facility] Start: 06-23-2023 Covid-19 Vaccine ( season) Covid-19 Vaccine () [facility] Start: 06-23-2023 Influenza vaccination [facility] Start: 06-16-2023 [facility] Start: 04-21-2023 Influenza vaccination INFLUENZA (#1) [facility] Comment on above: Postponed from 06/23/2022 (Declined at t his time) Start: 02-20-2023 General foods mix RAST test [facility] Start: 01-30-2023 Egd transoral biopsy single/multiple EGD BIOPSY SINGLE/MULTIPLE [facility] Start: 01-30-2023 Patient discharge [facility] Start: 01-05-2023 Adult depression screening assessment DEPRESSION SCREENING [facility] Start: 10-23-2022 DEPRESSION ASSESSMENT DEPRESSION ASSESSMENT [facility] Start: 09-14-2022 End: 11-14-2022 CBC W Auto Differential panel - Blood CBC + DIFF Lab Routine Annual physical exam Expected: 09/14/2022, Expires: 11/14/2022 [facility] Work Phone: Comment on above: Expected: 09/14/2022, Expires: Start: 09-14-2022 End: 11-14-2022 Comprehensive metabolic 2000 panel - Serum or Plasma COMP METABOLIC PANEL Lab Routine Annual physical exam Expected: 09/14/2022, Expires: 11/14/2022 [facility] Work Phone: Comment on above: Expected: 09/14/2022, Expires: 3 Start: 09-14-2022 End: 11-14-2022 Hepatitis C virus Ab [Presence] in Serum HEP C AB IA W/CONF SCRN Lab Routine Special screening examination for viral disease Expected: 09/14/2022, Expires: 11/14/2022 [facility] Work Phone: Comment on above: Expected: 09/14/2022, Expires: 3 Start: 09-14-2022 End: 11-14-2022 Lipid 1996 panel - Serum or Plasma LIPID PANEL BASIC Lab Routine Annual physical exam Expected: 09/14/2022, Expires: 11/14/2022 [facility] Work Phone: Comment on above: Expected: 09/14/2022, Expires: 3 Start: 09-14-2022 End: 11-14-2022 Thyrotropin [Units/volume] in Serum or Plasma TSH BLD Lab Routine Excessive weight gain Expected: 09/14/2022, Expires: 11/14/2022 [facility] Work Phone: Comment on above: Expected: 09/14/2022, Expires: 3 Start: 06-23-2022 Influenza vaccination [facility] Start: 10-23-2021 DEPRESSION ASSESSMENT DEPRESSION ASSESSMENT [facility] Start: 08-24-2021 COVID-19 VACCINE (2 - Booster for Amy series) COVID-19 VACCINE (2 - Booster for Amy series) [facility] Start: 07-27-2021 Covid-19 Vaccine (2 - Amy risk series) Covid-19 Vaccine (2 - Amy risk series) [facility] Start: 2014 HPV TESTING HPV TESTING [facility] Start: 2005 PAP TESTING PAP TESTING [facility] Start: 2003 Hepatitis B Vaccine (1 of 3 - 19+ 3-dose series) Hepatitis B Vaccine (1 of 3 - 19+ 3-dose series) [facility] Start: 2003 Shingrix Vaccine (1 of 2) Shingrix Vaccine (1 of 2) [facility] Start: 2003 Urine microalbumin profile [facility] Start: 2002 Depression Screening Depression Screening [facility] Start: 2002 HEPATITIS C SCREENING HEPATITIS C SCREENING [facility] Start: 1990 Pneumococcal vaccination Pneumococcal Vaccine (1 of 2 - PCV) [facility] Start: 1984 HEPATITIS B (1 of 3 - 3-dose series) HEPATITIS B (1 of 3 - 3-dose series) [facility] Start: 1985 Hepatitis B Vaccine (1 of 3 - 3-dose series) Hepatitis B Vaccine (1 of 3 - 3-dose series) [facility] Beef IgE Ab [Units/v olume] in Serum [facility] Chocolate IgE Ab [Units/volume] in Serum [facility] Choriogonadotropin ( test) [Presence] in Serum or Plasma [facility] End: 11-22-2024 Choriogonadotropin.beta subunit [Units/volume] in Serum or Plasma HCG QUANTITATIVE Lab STAT Right tubal without intrauterine Right tubal , unspecified whether intrauterine present 3x per week for 3 Occurrences starting 11/23/2023 until 11/22/2024 [facility] Work Phone: Comment on above: 3x per week for 3 Occurrences starting 0 11/23/2023 until 11/22/2024 Emporium IgE Ab [Units/v olume] in Serum [facility] Cow milk IgE Ab [Units/volume] in Serum [facility] End: 07-05-2025 DBT Breast - bilateral screening PRIYANKA SCREENING W BERTA Radiology Routine Encounter for screening mammogram for breast cancer 1 Occurrences starting 06/05/2024 until 07/05/2025 [facility] Work Phone: Comment on above: 1 Occurrences starting 06/05/2024 until 07/05/2025 DBT Breast - bilater al screening PRIYANKA SCREENING W BERTA Radiology Routine Encounter for screening mammogram for breast cancer 06/14/2024 9:55 AM EDT [facility] Work Phone: End: 01-08-2024 Diagnostic mammography computer-aided detcj bi PRIYANKA DIAGNOSTIC BILAT Radiology Routine Mass of right breast, unspecified quadrant 1 Occurrences starting 12/09/2022 until 01/08/2024 [facility] Work Phone: Comment on above: 1 Occurrences starting 12/09/2022 until 01/08/2024 Fish RAST [facility] PAP FLUID CERVICAL SCREENING PAP FLUID CERVICAL SCREENING Lab Routine Encounter for gynecological examination (general) (routine) without abnormal findings Screening for cervical cancer Encounter for screening for human papillomavirus (HPV) 09/16/2022 4:17 PM EST [facility] Work Phone: Patient Education [facility] Work Phone: Patient referral [facility] Work Phone: Peanut IgE Ab [Units/volume] in Serum [facility] Pork IgE Ab [Units/v olume] in Serum [facility] End: 10-08-2023 Radex spine cervical 6 or more views XR CERV OTHER 6V AP/LAT/FLX/EXT/OBL Radiology Routine Neck pain 1 Occurrences starting 09/08/2022 until 10/08/2023 [facility] Work Phone: Comment on above: 1 Occurrences starting 09/08/2022 until 10/08/2023 Radionuclide gastric emptying study [facility] Soybean IgE Ab [Units/volume] in Serum [facility] End: 01-08-2024 Us breast uni real time with image limited US BREAST LTD RT Radiology Routine Mass of right breast, unspecified quadrant 1 Occurrences starting 12/09/2022 until 01/08/2024 [facility] Work Phone: Comment on above: 1 Occurrences starting 12/09/2022 until 01/08/2024 Wheat IgE Ab [Units/volume] in Serum [facility] Whole Egg IgE Ab [Units/volume] in Serum [facility] Immunizations Immunization Date Immunization Notes Care Provider Annette mariee 11-27-2023 tetanus toxoid, reduced diphtheria toxoid, and acellular pertussis vaccine, adsorbed Aaliyah Kelly CUSTOMER ENGAGEMENT MANAGER.ADJUSTER AND INSPECTOR Work Phone: [facility] 06-29-2021 COVID-19 vaccine (AMY) Americo Landa CUSTOMER ENGAGEMENT MANAGER.ADJUSTER AND INSPECTOR Work Phone: [facility] Work Phone: Payers Date Payer Category Payer Self-pay [id number] 2020 Medicaid [place] [employer] [employer] [id number] 2020-Present [phone] [address] [place] [address] Medicaid [id number] 2020 Medicaid [id number] 2020 Medicaid [id number] 1985 Unknown [id number] 1984 Unknown [id number] Unknown [id number] Unknown [id number] Unknown [id number] Unknown [id number] Unknown [id number] Unknown [id number] Unknown [id number] Unknown [id number] Unknown [id number] Social History Date Type Detail Facility Start: 11-28-2017 End: 04-23-2025 Never smoked tobacco (finding) [facility] Sex Assigned At [facility] Start: 11-28-2017 End: 11-20-2023 Tobacco use and exposure Smokeless tobacco non-user [facility] Work Phone: Start: 01-05-2022 End: 05-02-2025 Alcohol intake Current non-drinker of alcohol (finding) [facility] Start: 04-28-2021 End: 09-12-2022 History SDOH Alcohol Frequency 2 [facility] Start: 04-28-2021 End: 09-12-2022 History SDOH Alcohol Std Drinks 1 [facility] Start: 04-28-2021 End: 09-12-2022 History SDOH Social Connections Phone 5 [facility] Start: 04-28-2021 History SDOH Social Connections Get Together 4 [facility] Start: 04-28-2021 End: 09-12-2022 History SDOH Social Connections Living 6 [facility] Start: 04-28-2021 History SDOH Physica l Activity MPS 15 [facility] Start: 04-28-2021 Education 12 [facility] Start: 1985 Sex Assigned At Not on file [facility] Start: 07-02-2022 End: 09-14-2022 Exposure to SARS-CoV-2 (event) Not sure [facility] Work Phone: Start: 09-12-2022 History SDOH Alcohol Std Drinks 0 [facility] Start: 09-12-2022 History SDOH Social Connections Jewish 98 [facility] Start: 09-12-2022 History SDOH Physica l Activity DPW 3 [facility] Start: 10-20-2022 End: 11-12-2023 Tobacco smoking status NHIS Unknown if ever smoked [facility] Start: 1985 Sex Assigned At Female W [facility] Start: 11-03-2022 Tobacco Comment vapes daily [facility] Start: 09-12-2022 End: 11-04-2022 History of Social function [facility] Start: 09-12-2022 End: 11-04-2022 Social connection and isolation panel [facility] How often do you att end jewish or mormon services? Patient refused [facility] Do you belong to any clubs or organizations such as jewish groups, unions, fraternal or athletic groups, or school groups? No [facility] Are you now , , , , never or living with a partner? [facility] How often to you hav e a drink containing alcohol? Monthly or less [facility] How often do you hav e 6 or more drinks on 1 occasion? Never [facility] Do you feel stress - tense, restless, nervous, or anxious, or unable to sleep at night because your mind is troubled all the time - these days [OSQ] Only a little [facility] (I/We) worried wheth er (my/our) food would run out before (I/we) got money to buy more. DK or Refused [facility] Start: 08-17-2021 Gender identity Identifies as female gender (finding) [facility] Start: 10-23-2023 [facility] Start: 11-20-2023 Tobacco smoking stat us NHIS Ex-smoker [facility] History of tobacco use Current smoker [facility] How hard is it for y ou to pay for the very basics like food, housing, medical care, and heating Not very hard [facility] Do you feel stress - tense, restless, nervous, or anxious, or unable to sleep at night because your mind is troubled all the time - these days [OSQ] Not at all [facility] (I/We) worried wheth er (my/our) food would run out before (I/we) got money to buy more. Never true [facility] Start: 11-20-2023 Tobacco Comment Was vaping hav e already quit [facility] How many standard dr inks containing alcohol do you have on a typical day? 1 or 2 [facility] Do you feel stress - tense, restless, nervous, or anxious, or unable to sleep at night because your mind is troubled all the time - these days [OSQ] Rather much [facility] Tobacco Nicotine Use: Va ping Product in Last 90 Days. Type: Electronic Cigarettes (Vaping). [facility] Start: 04-16-2014 Sex Female (finding) [facility] NEGATED: Highlighted row [facility] NEGATED: Highlighted rowStart: DARSHANAF History of tobacco use Passive smoker [facility] Goals Date Patient Goal Desired Activity /State Mental Status Date Assessment Result Facility 04-24-2025 Cognitive function Level Of Cons ciousness Awake;Alert;Appropriate [facility] Work Phone: 04-24-2025 Cognitive function Voice/Name [facility] Work Phone: 08-09-2023 Cognitive function Voice/Name;Touch/Shaki ng [facility] Work Phone: 01-30-2023 Cognitive function Voice/Name [facility] Work Phone: 01-30-2023 Cognitive function Patient Orien tation Person;Place;Time [facility] Work Phone: Clinical Notes 04-04-2022 to 05-07-2025 Telephone Encounter - Paula Marin RN - 05/07/2025 10:00 AM EDTTelephone Encounter - Paula Marin RN - 05/07/2025 10:00 AM Linda Loepz MD - 05/02/2025 2:03 PM EDT Note Date & Type Note Facility 05-07-2025 Telephone encounter Note Patient requesting PNV rx be sent to pharmacy and to review pathology from [facility] surgery. Paula Marin RN [facility] 05-07-2025 Miscellaneous Notes Patient requesting PNV rx be sent to pharmacy and to review pathology from [facility] surgery. Paula Marin RN documented in this encounter [facility] 05-02-2025 Note HNO ID: [id number] Author: LINDA SLOAN MD Service: ? Author Type: Physician Type: Progress Notes Filed: 05/02/2025 16:54 Note Text: DATE OF SERVICE: 05/02/2025 PROBLEM: Michelle Henderson presents for postop visit. SURGERY AND DATE: 04/24/2025, Hysteroscopy [facility] PATHOLOGY: not available for review SUBJECTIVE/INTERVAL HISTORY: Michelle Henderson is doing ok. Was having pain right after surgery with clotting that has improved. Bleeding dark brown spotting only when using restroom. Minimal cramping. Denies fevers, chills, malaise, nausea or vomiting, constipation, urinary symptoms. Having more frequent stools. Eating well. No vaginal discharge or odor. SENSITIVE EXAM: Sensitive exam not performed. OBJECTIVE: VITALS: BP 102/60 Wt 100.2 kg (221 lb) LMP 02/19/2025 (Exact Date) BMI 38.91 kg/m? HEENT: Normocephalic and atraumatic ABDOMEN: Abdomen soft, non-tender, non acute. ASSESSMENT: post op doing well PLAN: Discussed surgery with patient in detail and questions answered Pathology in process Patient plans to see SHEEBA and has an appointment scheduled Discussed bleeding expectations moving forward, and reasons to call Linda Sloan DO [facility] 05-02-2025 History of Presen t illness Narrative DATE OF SERVICE: 05/02/2025 PROBLEM: Michelle Henderson presents for postop visit. SURGERY & DATE: 04/24/2025, Hysteroscopy D&C PATHOLOGY: not available for review SUBJECTIVE/INTERVAL HISTORY: Michelle Henderson is doing ok. Was having pain right after surgery with clotting that has improved. Bleeding dark brown spotting only when using restroom. Minimal cramping. Denies fevers, chills, malaise, nausea or vomiting, constipation, urinary symptoms. Having more frequent stools. Eating well. No vaginal discharge or odor. SENSITIVE EXAM: Sensitive exam not performed. OBJECTIVE: VITALS: BP 102/60 Wt 100.2 kg (221 lb) LMP 02/19/2025 (Exact Date) BMI 38.91 kg/m HEENT: Normocephalic and atraumatic ABDOMEN: Abdomen soft, non-tender, non acute. ASSESSMENT: post op doing well PLAN: Discussed surgery with patient in detail and questions answered Pathology in process Patient plans to see SHEEBA and has an appointment scheduled Discussed bleeding expectations moving forward, and reasons to call Linda Sloan DO documented in this encounter [facility] 04-28-2025 Hospital Discharg e instructions Patient Education 04/28/2025 21:44:33 Dilation and Curettage D&C After the cervical canal is dilated, a curette is inserted into the uterus to take tissue samples. Your healthcare provider has recommended you have a D&C (dilation and curettage). This common procedure helps your healthcare provider learn more about problems inside your uterus or is done to treat a miscarriage. During a D&C, the cervix (opening of the uterus) is widened, or dilated. Tissue samples are then removed from the endometrium (lining of the uterus) with an instrument called a curette or with suction. In many cases, D&C is done to find the cause of abnormal vaginal bleeding. Or you may need a D&C as a form of treatment. A hysteroscopy is usually done along with the D&C for a gynecological problem. A hysteroscopy uses a small instrument to see the inside of the uterus. Hysteroscopy and D&C can be done in the operating room or in the healthcare provider's office, depending on the healthcare provider who does it. Preparing for D&C Arrange for an adult family member or friend to drive you home. Don t eat or drink anything after the midnight before your D&C, unless told otherwise by your healthcare provider. During your D&C Just before your D&C, you may get medicine to prevent pain. This may be given through an IV. You may be awake but relaxed during the procedure. Or you may be completely asleep. The type of anesthesia used is different depending on where the procedure takes place. The procedure will not begin until the pain medicine has taken effect. During your D&C: Instruments are used to hold the vagina open and to steady the uterus. The cervical canal is widened using tapered instruments called dilators. Usually a thin, rigid, or flexible telescope (hysteroscope) is inserted into the vagina to take images of the inside of the uterus. This allows your healthcare provider to see into the uterus. The curette or suction is inserted into the uterus. Tissue samples are taken from several areas. These samples are sent to a lab to be studied. After your D&C You will rest for a while in a recovery area. You can expect some cramping for a few hours after the D&C. This can be controlled with an [id number] pain reliever. You may have some light bleeding for a few weeks. Use pads instead of tampons. Take showers instead of baths for about a week. Ask your healthcare provider if you should avoid exercising or having sex for a period of time. Risks and complications D&C rarely causes complications. But as with any procedure, D&C has some risks. Before your D&C, your healthcare provider will discuss these with you. You will be asked to sign a consent form. Risks may include: Infection Heavy bleeding Perforation of the uterine wall or damage to nearby organs Scar tissue may form causing the lining of the uterus to adhere to itself. This can cause problems with menstrual flow or difficulty getting in the future. This is called Asherman syndrome. The need for additional tests or procedures Risks associated with anesthesia (the medicine that makes you sleep during surgery) Call your healthcare provider Contact your healthcare provider if you have: Heavy bleeding (more than 1 pad an hour) A fever of 100.4 F (38 C) or higher, or as directed by your healthcare provider Increasing belly pain, tenderness, or cramping Foul-smelling discharge [id number] [employer]. [address] [place] [address], [place] [address]. All rights reserved. This information is not intended as a substitute for professional medical care. Always follow your healthcare professional's instructions. Follow Up Care 04/28/2025 18:54:44 With:Nathalia Address: When:2-4 days With:ZHENG SHARIF MD Address: [address] [place] [address]- [facility]:2[facility] Note Discharge Instructions Thank you for allowing [facility] to assist you with your healthcare needs. The following is important discharge information regarding your hospital visit. Diagnosis from Today's Visit Status post dilation and curettage Vaginal bleeding What to Do Next Instructions from Your Care Team No qualifying data available. Post Acute Orders No qualifying data available. You Need to Schedule the Following Appointments Follow Up with Nathalia When:Within 2-4 days Follow Up with ZHENG SHARIF MD When:Within 2-4 days Where:[address] [facility] [place] [address]- Allergies NKA Medications Please ask your primary doctor or pharmacist before taking any other medication not listed, including over the counter drugs, herbal medications, vitamins and or supplements as they may interact with your home medications. Please take this list to your next doctor s visit. Bring all medications you take, including over the counter medications, herbals and other supplements with you to your doctor s visit. Patients and families are reminded to discard old lists and to update any records with all medication providers or retail pharmacies. Education Materials D&C After the cervical canal is dilated, a curette is inserted into the uterus to take tissue samples. Your healthcare provider has recommended you have a D&C (dilation and curettage). This common procedure helps your healthcare provider learn more about problems inside your uterus or is done to treat a miscarriage. During a D&C, the cervix (opening of the uterus) is widened, or dilated. Tissue samples are then removed from the endometrium (lining of the uterus) with an instrument called a curette or with suction. In many cases, D&C is done to find the cause of abnormal vaginal bleeding. Or you may need a D&C as a form of treatment. A hysteroscopy is usually done along with the D&C for a gynecological problem. A hysteroscopy uses a small instrument to see the inside of the uterus. Hysteroscopy and D&C can be done in the operating room or in the healthcare provider's office, depending on the healthcare provider who does it. Preparing for D&C Arrange for an adult family member or friend to drive you home. Don t eat or drink anything after the midnight before your D&C, unless told otherwise by your healthcare provider. During your D&C Just before your D&C, you may get medicine to prevent pain. This may be given through an IV. You may be awake but relaxed during the procedure. Or you may be completely asleep. The type of anesthesia used is different depending on where the procedure takes place. The procedure will not begin until the pain medicine has taken effect. During your D&C: Instruments are used to hold the vagina open and to steady the uterus. The cervical canal is widened using tapered instruments called dilators. Usually a thin, rigid, or flexible telescope (hysteroscope) is inserted into the vagina to take images of the inside of the uterus. This allows your healthcare provider to see into the uterus. The curette or suction is inserted into the uterus. Tissue samples are taken from several areas. These samples are sent to a lab to be studied. After your D&C You will rest for a while in a recovery area. You can expect some cramping for a few hours after the D&C. This can be controlled with an eyhm-mtz-[id number] pain reliever. You may have some light bleeding for a few weeks. Use pads instead of tampons. Take showers instead of baths for about a week. Ask your healthcare provider if you should avoid exercising or having sex for a period of time. Risks and complications D&C rarely causes complications. But as with any procedure, D&C has some risks. Before your D&C, your healthcare provider will discuss these with you. You will be asked to sign a consent form. Risks may include: Infection Heavy bleeding Perforation of the uterine wall or damage to nearby organs Scar tissue may form causing the lining of the uterus to adhere to itself. This can cause problems with menstrual flow or difficulty getting in the future. This is called Asherman syndrome. The need for additional tests or procedures Risks associated with anesthesia (the medicine that makes you sleep during surgery) Call your healthcare provider Contact your healthcare provider if you have: Heavy bleeding (more than 1 pad an hour) A fever of 100.4 F (38 C) or higher, or as directed by your healthcare provider Increasing belly pain, tenderness, or cramping Foul-smelling discharge [id number] [employer]. [address] [place] [address], [place] [address]. All rights reserved. This information is not intended as a substitute for professional medical care. Always follow your healthcare professional's instructions. Additional Information VACCINATE! IT SAVES LIVES! Members of the community who have not yet received the COVID-19 vaccine and would like to receive it can visit one of [facility] vaccine clinics. There are many vaccine clinic locations within the [facility]. For locations and available times, please visit [email or web address].[place]. gov/. It is important to note that some COVID mobile vaccine clinics are held outdoors and may be canceled in rainy or stormy conditions. To learn more about pediatric vaccinations (ages 5-11), we invite you to visit the [employer] [facility] webpage. https://www.[employer].org/p ages/4247-Cwusv-Pvezrjewaru-Freq hjmikl-Zcbdf-Qtqkbrhcc.html To learn more about the COVID-19 vaccine, we invite you to visit the CDC website for a list of frequently asked questions. https://www.cdc.gov/coronavirus/ 2019-ncov/vaccines/faq.html [facility] Patient Portal Access Instructions: Stay connected with your healthcare team and access your personal medical information anytime with the [facility] Patient Portal. If you would like a full copy of your medical records please contact the [facility] Medical Records Department Monday through Monday between 8a.m. and 4:30p.m. Please follow the directions below to access the portal: 1.Access the email account you provided upon registration to the hospital.2.Look for an invitation email from [facility].3.Open the email and access the invitation link: Accept Invitation to [facility].Fill in the required alvarenga to create your account. Sign into www.[employer] with your username and password that you created in the above steps to stay up to date. You can then view a summary of results, a summary of your visits, and the ability to download your summaries to your computer or send the information securely to a physician. Remember that your healthcare information is confidential, so carefully consider who you will allow to register on the [facility] [facility] Patient Portal for access to your information. You can also access the [facility] [facility] Patient Portal on the [employer] piyush. Simply click on Health Records under Health Data and then click on the [employer] logo. HOW TO SAFELY DISPOSE OF PRESCRIPTION MEDICATIONS Please use one of the following methods to safely dispose of your unused medications. 1.Use a drug disposal kit: the drug disposal pouch allows you to safely discard your old and unused drugs. Ask your nurse to give you one when you are discharged.2.Visit a local take-back location: Many local pharmacies and police departments have programs that collect old and unwanted prescription drugs. Call your local pharmacy or go to http://PicPrizes.HedgeChatter/9S2Bx8p to find one close to you.3.Make use of household items: Use cat litter or old coffee grounds to dispose medications if other options are not available. Mix your drugs with these household products, seal them in an airtight container and throw it into the garbage. Call [facility]: [phone] to be sure your drugs can be disposed of in this way. Some medicines may require a different approach.4.Never flush your medications down the toilet. IF YOU HAVE BEEN PRESCRIBED AN OPIOIDS FOR PAIN If you have been prescribed an opioid (such as hydrocodone, oxycodone or morphine), it is critical to understand the possible side effects and risks of opioid pain medications. Even when taken as directed, opioids can have several side effects including: Tolerance, meaning you might need to take more of a medication for the same pain relief. Nausea, vomiting and/or constipation. Sleepiness, dizziness, dry mouth, confusion, depression or itching. Physical dependence, meaning you have withdrawal symptoms when a medication is stopped ? this can develop within a few days. KNOW YOUR RESPONSIBILITIES It is important to know exactly how much and how often to take the opioid pain medications you are prescribed. Never take opioids in higher amounts or more often than prescribed. Do not combine opioids with alcohol or other drugs that cause drowsiness, such as benzodiazepines, also known as benzos, including diazepam and alprazolam, muscle relaxants or sleep aids. Never sell or share prescription opioids. This is illegal. Store opioids in a secure place and out of reach of others (including children, family, friends and visitors). The last page(s) of this document has been signed and retained as a CHART COPY Signatures Patient Education Materials Dilation and Curettage Medication Leaflets My discharge plan and instructions have been reviewed and explained to me and I,MICHELLE HENDERSON understand my current condition and have read and understand these discharge instructions. I have received a written copy of the plan/instructions. If I have questions, I am aware that I should contact my doctor. Patient/Parboiler Signature: Date/Time: Relationship to Patient: Witness Name/Signature: Date/Time: [facility] 04-24-2025 Consult note [facility] 04-24-2025 Consult note Note Date/Time April 24, 2025 10:25am [facility] Medical Records Department [address] [place] [address] Pre-Anesthesia Evaluation 04/24/25 1013 MR#: [id number] Acct: [id number] Name: MICHELLE HENDERSON Rep #:[id number] : 1985 39 From: Justin Cohen MD PCP: Dr. Zheng Sharif MD Status:REG S DC Y Race: C Location: [place] [address] ASA Classification* ASA Classification ASA Classification: 3 Assessment & Plan Anesthesia* Anesthesia Assessment Anesthesia Assessment: Discussed sedation and/or anesthesia options, risks, benefits, and alternatives with patient/parents/legal guardian/POA. Questions invited. The patient/parents/legal guardian/POA seems to understand and agrees to proceedwith anesthesia plan. Reviewed the physical assessment, medical history, allergy history and patient home medications list prior to surgery/procedure/anesthetic and documented any changes. Performed airway and anesthesia risk assessments. Anesthesia Type Anesthesia Type: MAC History Source History Obtained from:: Patient and Chart Anesthesia Focused Assessment* Temperature: 98.4 F Pulse Rate: 76 Blood Pressure: 106/74 Respiratory Rate: 18 Pulse Ox: 100 Oxygen Delivery Method: Room Air Airway Assessment Mouth opens: >3 cm Mallampati Score: I Teeth Condition: Intact Neck Range of motion (ROM): Full ROM Labs Anesthesia Preop lab: CBC WBC 7.1 K/mm3 (4.4-11.0) 04/24/25 09:17 04/24/25 RBC 4.58 M/mm3 (4.2-5.4) 04/24/25 09:17 04/24/25 Hgb 13.8 g/dL (12.0-15.0) 04/24/25 09:17 04/24/25 Hct 41.4 % (37-47) 04/24/25 09:17 04/24/25 Plt Count 273 K/mm3 (150-450) 04/24/25 09:17 04/24/25 CHEMISTRY Potassium 3.6 mmol/L (3.5-5.1) 12/29/22 00:10 12/29/22 Sodium 141 mmol/L (136-145) 12/29/22 00:10 12/29/22 BUN 14 mg/dL (7-18) 12/29/22 00:10 12/29/22 Creatinine 0.84 mg/dL (0.55-1.02) 12/29/22 00:10 12/29/22 Glucose 95 mg/dL (74-106) 12/29/22 00:10 12/29/22 COAG PT 13.6 SECONDS (11.7-14.9) 06/21/24 16:01 HCG, Quant 403 mIU/mL (1-3) H 11/12/23 22:41 11/12/23 Urine Test Negative Negative 08/14/24 05:30 08/14/24 Pre-Assessment Diagnosis/Proposed Procedure Planned Operative Procedure(s): SUCTION D&C Anesthesia History Anesthesia History - seed service advisor: Anesthesia History - seed service advisor Hx Hospitalization No 04/23/25 08:56 Any Problems With Anesthesia No 04/23/25 08:56 Cholinesterase deficiency No 04/23/25 08:56 You/Your Family Experience No 04/23/25 08:56 fever (hyperthermia) with Relationship Recent Exposure to Contagious No 04/24/25 09:47 Disease Does patient have nerve No 04/23/25 08:56 stimulator Patient instructed to have device shut off --Does patient have Pacemaker No 04/24/25 09:47 or ICD? When Was Last Pacemaker Check QUESTION #4 FULL TEXT: You/Your Family Experience fever (hyperthermia) with Anesthesia Last Oral Intake Last Oral intake: Last Oral Intake NPO since 00:00 04/24/25 09:47 Meds taken in AM with sips of No 04/24/25 09:47 water? Meds patient instructed to take am of surgery PONV PONV - seed service advisor: PONV - seed service advisor Female Yes 04/23/25 08:56 HX of Motion Sickness No 04/23/25 08:56 HX of N/V After Surgery No 04/23/25 08:56 Non-Smoker Yes 04/23/25 08:56 Duration of Surgery greater No 04/23/25 08:56 than 60 minutes Number of Risk Factors 2 04/23/25 08:56 PONV Score Moderate Risk 04/23/25 08:56 Height & Weight Height & Weight: Anesthesia: Height & Weight Height 5 ft 3 in 04/24/25 09:47 Weight: 100.9 kg 04/24/25 09:47 Body Mass Index (BMI) 39.4 04/24/25 09:47 Respiratory Assessment Respiratory Assessment - seed service advisor: Respiratory Tract Infection Hx - seed service advisor Hx Respiratory Tract Infection No 04/23/25 08:56 STOP Sleep Apnea STOP Sleep Apnea - seed service advisor: STOP Sleep Apnea - seed service advisor Hx Hypertension No 04/23/25 08:56 Hx Sleep Apnea No 04/23/25 08:56 CPAP BIPAP Do you snore loudly (louder No 04/23/25 08:56 than talking or can be heard Do you often feel tired/ No 04/23/25 08:56 fatigued/ sleepy during daytime? Has anyone observed you stop No 04/23/25 08:56 breathing during sleep? STOP Results Negative 04/23/25 08:56 QUESTION #5 FULL TEXT : Do you snore loudly (louder than talking or can be heard through closed doors)? Tobacco Use History Tobacco Use History - seed service advisor: Tobacco Use History - seed service advisor Tobacco Use Smoking Status Never smoker 04/23/25 08:56 Hx Tobacco Use No 04/23/25 08:56 Years Smoking Packs Smoked per Day Smoking Cessation Date was within the last 15 years Hx Smoking Cessation Date Hx Smoking Cessation Counseling Hematologic Medial History Hematologic Hx - seed service advisor: Hematologic Medical Hx - retrieval specialist Hx of Blood Transfusion No 04/23/25 08:56 Hx of Transfusion in last 3 No 04/23/25 08:56 Months Date of Last Transfusion (if within last 3 months) Ever experience any problems No 04/23/25 08:56 with transfusion(s)? Specify any problems Hx of Preganancy in last 3 Yes 04/23/25 08:56 Months Nurse Filling Out Transfusion VCHRISTIN 04/23/25 08:56 & Questions: Date: 04/23/25 04/23/25 08:56 Time: 08:57 04/23/25 08:56 Patient unable to answer at this time (ie. confused, unrespo /Reproduction History /Reproductive History - seed service advisor: /Reproductive Hx- seed service advisor Hx Now Yes 04/23/25 08:56 Gestational Age (in weeks): EDC: Hx Hx Para Hx Section SAB No 04/23/25 08:56 Active Medications Active Medications: Current Medications Generic Name Dose Route Start Last Admin Trade Name Freq PRN Reason Stop Dose Admin Lactated Ringer's 1,000 mls @ 15 mls/hr 04/24/25 08:45 04/24/25 09:51 IV 15 mls/hr .Q48H NADIYA Administration Doxycycline Hyclate 100 mg/ 260 mls @ 250 mls/hr 04/24/25 09:30 04/24/25 09:54 Sodium Chloride IV 04/24/25 10:32 250 mls/hr PREOP ONE Administration PFSH Medical History Hx of ectopic Post traumatic stress disorder (PTSD) Migraine headache Difficulty swallowing History of hiatal hernia Shortness of breath on exertion Non-smoker GERD (gastroesophageal reflux disease) Bipolar disorder Fatty liver Home Medications ?Medication ?Instructions ?Recorded ?Last Taken ?Type vit no.95-ferrous 1 tab PO DAILY 04/23/25 Unk nown History fumarate 28 mg-folic acid 800 mcg tablet () Allergy/AdvReac Type Severity Reaction Status Date / Time No Known Allergies Allergy Verified 04/24/25 09:46 Family History Sister Bleeding disorder Cervical cancer Surgical History (Updated 04/23/25 @ 08:56 by Sherron Kramer) History of esophagogastroduodenoscopy (EGD) Hx of cholecystectomy Social History Smoking Status: Never smoker Electronic Cigarette Use: with nicotine alcohol intake: never Review of Systems (Anesthesia) ROS Narrative System reviewed and no additional complaints, except as documented. Physical Exam Const alert, oriented x3 and average body habitus Resp normal respiratory effort, normal air movement and clear to auscultation bilaterally Cardio regular rate, regular rhythm and no murmurs Neuro oriented x3 and moves all extremities 04/24/25 1025 <Electronically signed by Justin Charlton D> Date _ Justin Cohen MD Cosigner Signature: Date CC: ~ Signed [facility] Work Phone: [phone]) 752-734407-03-2025 Procedure note [facility] Medical Records Department [address] [place] [address] Operative Report 04/24/25 1143 MR#: [id number] Acct: [id number] Name: MICHELLE HENDERSON Rep #:[id number] : 1985 39 From: Linda Sloan DO PCP: Dr. Zheng Sharif MD Status:REG S DC Location: [place] [address] Problems Associated Problem List Diagnoses (1) Missed : Operative Report (Standard) Operative Information Date of Procedure: 04/24/25 Pre-Operative Diagnosis: Blighted ovum Post-Operative Diagnosis: As above Surgery/Procedure Performed: Suction D&C packing supervisor: Yes Bulk Cooler Installer: Gabby Garcia MS4 Tasks completed by malt specifications control assistant: Retracting Type of Anesthesia: MAC RN Documented Start/Stop Times: Operation Date: 04/24/25 10:15 Case Time Into Pre-Op 04/24/25 08:43 Anesthesia Start 04/24/25 11:10 Into Room 04/24/25 11:10 Procedure Start 04/24/25 11:30 Procedure End 04/24/25 11:39 Procedure Start Time: 11:30 Procedure Stop Time: 11:39 Select all DRAINS/GRAFTS/IMPLANTS that apply: None Special Medications: None Estimated Blood Loss: 50 mL Fluids Replaced: See anesthesia record Specimen collected: Yes Description of specimen(s) removed: Products of conception Description of surgery: Discussed risk, benefits, alternatives to a suction D&C in the operating room with patient in preop and questions were answered. Discussed the Anora miscarriage testing in detail, and discussed cost and coverage with the patient. Discussed there might not be enough tissue for the miscarriage testing, and given a blighted ovum the results but may not be informative. The patient request to proceed with surgical management of a blighted ovum, and request to have Anora miscarriage testing done.She feels well counseled. The patient was taken to the operating room where MAC anesthesia was induced andfound to be adequate. She was prepped and draped in the dorsal lithotomy position using yellowfin stirrups. A weighted speculum was placed in the vaginato expose the cervix. The anterior lip of the cervix was grasped with a single-tooth tenaculum. Local was infiltrated in the cervix. The cervix was serially dilated toaccommodate a size 7 suction curettage. A size 7 suction curettage was inserted into the uterus to remove products of conception on several passes until no further products of conception were noted. Bleeding was scant. All instruments were removed from the vagina. A vaginal sweep was performed. Sponge and instrument and sharp counts were correct. The patient was taken to the cover in stable vision. Surgical Findings: Enlarged anteverted uterus palpates about 6-7 week in size Complications Complications: No Admit VTE Documentation VTE Present on Admission: No VTE Mechan Device Prophylaxis: SCD's 04/24/25 0668 Cosigner Signature (if applicable): CC: Dr. Zheng Sharif MD; Dr. Linda Sloan DO~ Signed [facility]07-03-2025 Discharge summary [facility] Medical Records Department [address] [place] [address] Instructions for Home/Discharge Instructions 04/24/25 1142 MR#: [id number] Acct: [id number] Name: MICHELLE HENDERSON Rep #:[id number] : 1985 39 From: Linda Sloan DO PCP: Dr. Zheng Sharif MD Status:REG S DC Discharge Instructions Diet Discharge Diet: No restrictions DC O2, CPAP, BIPAP needs Home O2 Discharge instructions: No Dressing / Incision Discharge Activity: May Not Drive (for 24 hours after surgery) and May Not Shower (for 24 hours after surgery) May resume sexual activity in: 1 week (no tampons, intercourse, or soaking in water) Weight Bearing Status: Weight bearing as tolerated Lifting Restrictions: none Dressing / Incision Call your doctor if you observe: Fever of 101 or Higher, Using more than 1 pad per hour, Shortness of breath, Dizziness, Chest pain, Increased palpitations (irregular heartbeat), Calf discomfort and Uncontrolled pain Follow Up Care Please Follow Up With: Linda Sloan DO When: 1-2 weeks post op Test Results: Test results from this visit will be discussed in further detail at your follow- up appointment, if applicable. Discharge Plan Admission Primary Reason for Your Visit: surgery Attending Provider: Linda Sloan Primary Care Provider: Zheng Sharif Instructions Patient Instructions: Dilation and Curettage Print Language: Bulgarian Discharge Orders/Prescriptions Prescriptions: No Action PNV cmb#95-ferrous fumarate-FA [] 28 mg iron- 800 mcg tablet 1 tab PO DAILY Referrals / Follow Up: Zheng Sharif MD [Primary Care Provider] - Disposition Disposition (needs filled in before D/C Order can be placed): Home, Self Care 04/24/25 1143Linda Sloan DO CC: Dr. Zheng Sharif MD ~ Signed [facility]07-03-2025 Consult note [facility] Medical Records Department [address] [place] [address] Pre-Anesthesia Evaluation 04/24/25 1013 MR#: [id number] Acct: [id number] Name: MICHELLE HENDERSON Rep #:[id number] : 1985 39 From: Justin Cohen MD PCP: Dr. Zheng Sharif MD Status:REG S DC Y Race: C Location: [place] [address]-1 ASA Classification* ASA Classification ASA Classification: 3 Assessment & Plan Anesthesia* Anesthesia Assessment Anesthesia Assessment: Discussed sedation and/or anesthesia options, risks, benefits, and alternatives with patient/parents/legal guardian/POA. Questions invited. The patient/parents/legal guardian/POA seems to understand and agrees to proceedwith anesthesia plan. Reviewed the physical assessment, medical history, allergy history and patient home medications list prior to surgery/procedure/anesthetic and documented any changes. Performed airway and anesthesia risk assessments. Anesthesia Type Anesthesia Type: MAC History Source History Obtained from:: Patient and Chart Anesthesia Focused Assessment* Temperature: 98.4 F Pulse Rate: 76 Blood Pressure: 106/74 Respiratory Rate: 18 Pulse Ox: 100 Oxygen Delivery Method: Room Air Airway Assessment Mouth opens: >3 cm Mallampati Score: I Teeth Condition: Intact Neck Range of motion (ROM): Full ROM Labs Anesthesia Preop lab: CBC WBC 7.1 K/mm3 (4.4-11.0) 04/24/25 09:17 04/24/25 RBC 4.58 M/mm3 (4.2-5.4) 04/24/25 09:17 04/24/25 Hgb 13.8 g/dL (12.0-15.0) 04/24/25 09:17 04/24/25 Hct 41.4 % (37-47) 04/24/25 09:17 04/24/25 Plt Count 273 K/mm3 (150-450) 04/24/25 09:17 04/24/25 CHEMISTRY Potassium 3.6 mmol/L (3.5-5.1) 12/29/22 00:10 12/29/22 Sodium 141 mmol/L (136-145) 12/29/22 00:10 12/29/22 BUN 14 mg/dL (7-18) 12/29/22 00:10 12/29/22 Creatinine 0.84 mg/dL (0.55-1.02) 12/29/22 00:10 12/29/22 Glucose 95 mg/dL (74-106) 12/29/22 00:10 12/29/22 COAG PT 13.6 SECONDS (11.7-14.9) 06/21/24 16:01 HCG, Quant 403 mIU/mL (1-3) H 11/12/23 22:41 11/12/23 Urine Test Negative Negative 08/14/24 05:30 08/14/24 Pre-Assessment Diagnosis/Proposed Procedure Planned Operative Procedure(s): SUCTION D&C Anesthesia History Anesthesia History - seed service advisor: Anesthesia History - seed service advisor Hx Hospitalization No 04/23/25 08:56 Any Problems With Anesthesia No 04/23/25 08:56 Cholinesterase deficiency No 04/23/25 08:56 You/Your Family Experience No 04/23/25 08:56 fever (hyperthermia) with Relationship Recent Exposure to Contagious No 04/24/25 09:47 Disease Does patient have nerve No 04/23/25 08:56 stimulator Patient instructed to have device shut off --Does patient have Pacemaker No 04/24/25 09:47 or ICD? When Was Last Pacemaker Check QUESTION #4 FULL TEXT: You/Your Family Experience fever (hyperthermia) with Anesthesia Last Oral Intake Last Oral intake: Last Oral Intake NPO since 00:00 04/24/25 09:47 Meds taken in AM with sips of No 04/24/25 09:47 water? Meds patient instructed to take am of surgery PONV PONV - seed service advisor: PONV - seed service advisor Female Yes 04/23/25 08:56 HX of Motion Sickness No 04/23/25 08:56 HX of N/V After Surgery No 04/23/25 08:56 Non-Smoker Yes 04/23/25 08:56 Duration of Surgery greater No 04/23/25 08:56 than 60 minutes Number of Risk Factors 2 04/23/25 08:56 PONV Score Moderate Risk 04/23/25 08:56 Height & Weight Height & Weight: Anesthesia: Height & Weight Height 5 ft 3 in 04/24/25 09:47 Weight: 100.9 kg 04/24/25 09:47 Body Mass Index (BMI) 39.4 04/24/25 09:47 Respiratory Assessment Respiratory Assessment - seed service advisor: Respiratory Tract Infection Hx - seed service advisor Hx Respiratory Tract Infection No 04/23/25 08:56 STOP Sleep Apnea STOP Sleep Apnea - seed service advisor: STOP Sleep Apnea - seed service advisor Hx Hypertension No 04/23/25 08:56 Hx Sleep Apnea No 04/23/25 08:56 CPAP BIPAP Do you snore loudly (louder No 04/23/25 08:56 than talking or can be heard Do you often feel tired/ No 04/23/25 08:56 fatigued/ sleepy during daytime? Has anyone observed you stop No 04/23/25 08:56 breathing during sleep? STOP Results Negative 04/23/25 08:56 QUESTION #5 FULL TEXT : Do you snore loudly (louder than talking or can be heard through closeddoors)? Tobacco Use History Tobacco Use History - seed service advisor: Tobacco Use History - seed service advisor Tobacco Use Smoking Status Never smoker 04/23/25 08:56 Hx Tobacco Use No 04/23/25 08:56 Years Smoking Packs Smoked per Day Smoking Cessation Date was within the last 15 years Hx Smoking Cessation Date Hx Smoking Cessation Counseling Hematologic Medial History Hematologic Hx - seed service advisor: Hematologic Medical Hx - retrieval specialist Hx of Blood Transfusion No 04/23/25 08:56 Hx of Transfusion in last 3 No 04/23/25 08:56 Months Date of Last Transfusion (if within last 3 months) Ever experience any problems No 04/23/25 08:56 with transfusion(s)? Specify any problems Hx of Preganancy in last 3 Yes 04/23/25 08:56 Months Nurse Filling Out Transfusion VCHRISTIN 04/23/25 08:56 & Questions: Date: 04/23/25 04/23/25 08:56 Time: 08:57 04/23/25 08:56 Patient unable to answer at this time (ie. confused, unrespo /Reproduction History /Reproductive History - seed service advisor: /Reproductive Hx- seed service advisor Hx Now Yes 04/23/25 08:56 Gestational Age (in weeks): EDC: Hx Hx Para Hx Section SAB No 04/23/25 08:56 Active Medications Active Medications: Current Medications Generic Name Dose Route Start Last Admin Trade Name Freq PRN Reason Stop Dose Admin Lactated Ringer's 1,000 mls @ 15 mls/hr 04/24/25 08:45 04/24/25 09:51 IV 15 mls/hr .Q48H NADIYA Administration Doxycycline Hyclate 100 mg/ 260 mls @ 250 mls/hr 04/24/25 09:30 04/24/25 09:54 Sodium Chloride IV 04/24/25 10:32 250 mls/hr PREOP ONE Administration PFSH Medical History Hx of ectopic Post traumatic stress disorder (PTSD) Migraine headache Difficulty swallowing History of hiatal hernia Shortness of breath on exertion Non-smoker GERD (gastroesophageal reflux disease) Bipolar disorder Fatty liver Home Medications ?Medication ?Instructions ?Recorded ?Last Taken ?Type vit no.95-ferrous 1 tab PO DAILY 04/23/25 Unk nown History fumarate 28 mg-folic acid 800 mcg tablet () Allergy/AdvReac Type Severity Reaction Status Date / Time No Known Allergies Allergy Verified 04/24/25 09:46 Family History Sister Bleeding disorder Cervical cancer Surgical History (Updated 04/23/25 @ 08:56 by Sherron Kramer) History of esophagogastroduodenoscopy (EGD) Hx of cholecystectomy Social History Smoking Status: Never smoker Electronic Cigarette Use: with nicotine alcohol intake: never Review of Systems (Anesthesia) ROS Narrative System reviewed and no additional complaints, except as documented. Physical Exam Const alert, oriented x3 and average body habitus Resp normal respiratory effort, normal air movement and clear to auscultation bilaterally Cardio regular rate, regular rhythm and no murmurs Neuro oriented x3 and moves all extremities 04/24/25 1025 D> Date _ Justin Cohen MD Cosigner Signature: Date CC: ~ Signed [place] [address]-01-2025 Telephone encounter Note* Telephone Encounter - Sai Lemos RN - 04/22/2025 10:05 AM EDT 1st risk assessment form submitted 04/22/25 Sai Lemos RN [facility]07-01-2025 Miscellaneous Notes* Telephone Encounter - Sai Lemos RN - 04/22/2025 10:05 AM EDT 1st risk assessment form submitted 04/22/25 [facility]* Diagnosis Miscarriage at 8 to 28 weeks gestation (HCC)- Primary documented in this encounter [facility]07-01-2025 NoteHNO ID: [id number] Author: KAJAL BETHEA MD Service: ? Author Type: Physician Type: Progress Notes Filed: 04/22/2025 17:18 Note Text: Michelle Henderson is a 39 year old female who presents for problem visit HPI: Visit yesterday confirmed no IUP, GS only no pole. Same as US from 04/08. Reviewed options with patient. Spontaneous passage of POC, Cytotec, IPAS or DANDC. Patient is interested in surgical procedure so that she can sent the POC for genetic testing. Plan for IPAS in office if able to schedule. Currently with no bleeding or cramping. OB History Gravida4 Para2 Term1 Preterm1 AB1 Living2 SAB0 IAB0 Ectopic1 Multiple0 Live Births2 Comment: x 2 Proj Engineer History LMP: 02/19/2025 (Exact Date), Age at Menarche: Age at First : Age at Menopause: Proj Engineer History Comments: Sexual Activity: Yes; Male Contraception: No contraception data on record PAST MEDICAL HISTORY Diagnosis Date Gastroparesis Liver disease PAST SURGICAL HISTORY Procedure Laterality Date BREAST BIOPSY NEEDLE RIGHT Right 09/17/2021 CHOLECYSTECTOMY HX 2014 FAMILY HISTORY Problem Relation Age of Onset other (MVP, IBS) Mother No Known Problems Father no relationship Cancer Sister cervical Depression Brother Social History Tobacco Use Smoking status: Former Passive exposure: Never Smokeless tobacco: Never Tobacco comments: Was vaping have already quit Vaping Use Vaping status: Former Substances: Nicotine, Flavoring Devices: Disposable Substance Use Topics Alcohol use: No Drug use: No Current Outpatient Medications Medication Sig PNV no.95/ferrous fum/folic ac ( ORAL) Take by mouth. No current facility-administered medications for this visit. Allergies As of Date: 04/22/2025 (No Known Allergies) Fully Assessed 04/22/2025 REVIEW OF SYSTEMS Abdomen: No bloating, early satiety, indigestion, or increased flatulence. No abdominal pain, nausea, vomiting, diarrhea, or constipation. Bladder: No dysuria, gross hematuria, urinary frequency, urinary urgency, or incontinence. Breast: No breast lumps, nipple d/c, overlying skin changes, redness or skin retraction. Expanded ROS: N/A Allergies and current medication updated:Yes SENSITIVE EXAM: Sensitive exam not performed. EXAM: BP 112/64 Wt 221 lb (100.2kg) LMP 02/19/2025 GENERAL: pleasant, female in no apparent distress HEENT: Normocephalic, atraumatic, mucus membranes moist, and no lesions NECK: Supple, full range of motion, and no adenopathy DERMATOLOGY: Normal, without lesions, non-icteric, and non-hirsute BREAST: deferred CHEST: Normal inspiratory effort ABDOMEN: Deferred PELVIC: deferred BIMANUAL: deferred NEURO: alert and oriented x3,exam grossly non-focal EXTREMITIES: normal ASSESSMENT AND PLAN: Assessment AND Plan Miscarriage at 8 to 28 weeks gestation (HCC) Patient added to OR for [facility] due to full office schedule. Discussed plan on phone with patient Ordered placed. Consent to be signed at the hospital day of procedure. [facility] Kajal Bethea [facility]07-01-2025 History of Present illness Narrative* Kajal Bethea MD - 04/22/2025 9:50 AM EDT Michelle Henderson is a 39 year old female who presents for problem visit HPI: Visit yesterday confirmed no IUP, GS only no pole. Same as US from 04/08. Reviewed options with patient. Spontaneous passage of POC, Cytotec, IPAS or D&C. Patient is interested in surgical procedure so that she can sent the POC for genetic testing. Plan for IPAS in office if able to schedule. Currently with no bleeding or cramping. OB History Gravida4 Para2 Term1 Preterm1 AB1 Living2 SAB0 IAB0 Ectopic1 Multiple0 Live Births2 Comment: x 2 Proj Engineer History LMP: 02/19/2025 (Exact Date), Age at Menarche: Age at First : Age at Menopause: Proj Engineer History Comments: Sexual Activity: Yes; Male Contraception: No contraception data on record PAST MEDICAL HISTORY Diagnosis Date Gastroparesis Liver disease PAST SURGICAL HISTORY Procedure Laterality Date BREAST BIOPSY NEEDLE RIGHT Right 09/17/2021 CHOLECYSTECTOMY HX 2014 FAMILY HISTORY Problem Relation Age of Onset other (MVP, IBS) Mother No Known Problems Father no relationship Cancer Sister cervical Depression Brother Social History Tobacco Use Smoking status: Former Passive exposure: Never Smokeless tobacco: Never Tobacco comments: Was vaping have already quit Vaping Use Vaping status: Former Substances: Nicotine, Flavoring Devices: Disposable Substance Use Topics Alcohol use: No Drug use: No Current Outpatient Medications Medication Sig PNV no.95/ferrous fum/folic ac ( ORAL) Take by mouth. No current facility-administered medications for this visit. Allergies As of Date: 04/22/2025 (No Known Allergies) Fully Assessed 04/22/2025 REVIEW OF SYSTEMS Abdomen: No bloating, early satiety, indigestion, or increased flatulence. No abdominal pain, nausea, vomiting, diarrhea, or constipation. Bladder: No dysuria, gross hematuria, urinary frequency, urinary urgency, or incontinence. Breast: No breast lumps, nipple d/c, overlying skin changes, redness or skin retraction. Expanded ROS: N/A Allergies and current medication updated:Yes SENSITIVE EXAM: Sensitive exam not performed. EXAM: BP 112/64 Wt 221 lb (100.2kg) LMP 02/19/2025 GENERAL: pleasant, female in no apparent distress HEENT: Normocephalic, atraumatic, mucus membranes moist, and no lesions NECK: Supple, full range of motion, and no adenopathy DERMATOLOGY: Normal, without lesions, non-icteric, and non-hirsute BREAST: deferred CHEST: Normal inspiratory effort ABDOMEN: Deferred PELVIC: deferred BIMANUAL: deferred NEURO: alert and oriented x3,exam grossly non-focal EXTREMITIES: normal ASSESSMENT AND PLAN: Assessment & Plan Miscarriage at 8 to 28 weeks gestation (HCC) Patient added to OR for [facility] due to full office schedule. Discussed plan on phone with patient Ordered placed. Consent to be signed at the hospital day of procedure. Plan for Anora to be sent from hospital Kajal Bethea MD [facility] Telephone encounter Note * Telephone Encounter - Kajal Pena RN - 04/21/2025 2:18 PM EDT Called and spoke with patient. No openings with SW today. Scheduled patient with JG tomorrow to discuss options. Kajal Pena RN [facility]06-30-2025 Miscellaneous Notes* Telephone Encounter - Kajal Pena RN - 04/21/2025 2:18 PM EDT Called and spoke with patient. No openings with SW today. Scheduled patient with JG tomorrow to discuss options. Kajal Pena RN * Telephone Encounter - Rani Yen APRN.CNP - 04/21/2025 12:48 PM EDT I seen this patient this morning for a new OB visit, which is a SAB. She is 8 weeks 5 days with no pole. Spoke with Dr Sloan regarding follow-up. SW is okay with her doing a virtual visit with either herself today or one of the doctors tomorrow for management care. If you could please reachout to the patient and assist her with scheduling. Rani Yen APRN.CNP documented in this encounterWood [facility]06-30-[facility] Telephone encounter Note * Telephone Encounter - Rani Yen APRN.CNP - 04/21/2025 12:48 PM EDT I seen this patient this morning for a new OB visit, which is a SAB. She is 8 weeks 5 days with no pole. Spoke with Dr Sloan regarding follow-up. SW is okay with her doing a virtual visit with either herself today or one of the doctors tomorrow for management care. If you could please reachout to the patient and assist her with scheduling. Rani Yen APRN.JACQUELYN [facility] Work Phone: [phone] 896-913006-30-2025 Instructions* Patient Instructions* Alicia Guthrie LPN - 04/21/2025 7:31 AM EDT Please select the following link to access the [facility] Your Guide to a Healthy . [email or web address] documented in this encounterWood [facility]06-25-2025 Telephone encounter Note * Telephone Encounter - Mimi Keane MA - 04/16/2025 11:16 AM EDT NOB intake completed. Mimi Keane MA [facility]06-25-2025 Miscellaneous Notes* Telephone Encounter - Mimi Keane MA - 04/16/2025 11:16 AM EDT NOB intake completed. Mimi Keane MA * Telephone Encounter - Claudette Kirkland MA - 04/15/2025 3:10 PM EDT Left voicemail to go over NOB intake question. Told patient to give our office a call back at her convince. Claudette Kirkland MA documented in this encounterWood [facility] Hospital06-25-2025 NoteHNO ID: [id number] Author: RANI YEN APRN.ADJUSTER AND INSPECTOR Service: ? 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 HPI: Michelle is a 39 year old Unavailable Female here to establish Obstetrical Care. Patient's last menstrual period was 02/19/2025 (exact date). from OB Dating Form. was planned Complaints: Heart racing or skipping beats OB History Gravida4 Para2 Term1 Preterm1 AB1 Living2 SAB0 IAB0 Ectopic1 Multiple0 Live Births2 Comment: x 2 Previous history: Prior : never History of 4th degree laceration: No History of shoulder dystocia: No History of Hypertensive disorders including pre-eclampsia or gestational hypertension: No History of gestational diabetes: No Patient's Risk Screening for delivery: Have you had a prior prakash between 20w and 36w6d? No How many pregnancies have you had before? 3 Did you have a previous baby with a GBS Infection? No Please select all that apply for any prior : N/A MEDICAL/PSYCHOSOCIAL HISTORY: History of hemorrhage or bleeding concerns: No Thyroid Disease: No History of chronic hypertension: No History of pre-existing diabetes: No No results found for: ABORHD BMI 39.58 kg/(m2) Last Pap: 09/16/2022 [facility]-US History of abnormal pap: Yes Prior treatment for cervical dysplasia: none. Last HPV: 09/16/2022, negative History of STDs: None Partner History of STDs: None Did you have a partner with Herpes? No Tobacco use: No E-Cigarette/Vaping Use: Yes Caffeine use: Yes, limited to one pop a day Drug use: No Alcohol use: No Multivitamin with Folic acid: Yes Would refuse blood transfusion if medically necessary: No Social Needs: How often does this describe you? I don't have enough money to pay my bills: Never Within the past 12 months, have you worried that your food would run out before you had money to buy more? Never In the past 12 months, has lack of reliable transportation kept you from going to medical appointments or work, or from getting things needed for daily living? Never In the past 12 months, have you had any concerns about having a place to live, or about the condition or quality of your housing? Never Would you like more information on any of the following (please check all that apply)? Not interested Social History: Do you have any history of depression, anxiety, PTSD, or other mood problems? Yes has not been an issue lately. Do you have a history of abuse or trauma that may impact your experience? No Are you currently employed? Yes Depression/Anxiety Screening: denies symptoms of depression. OB Depression and Anxiety Screening- This Encounter Feeling down, depressed, or hopeless: Not at all Little interest or pleasure in doing things: Not at all Feeling nervous, anxious, or on edge Not at all Not being able to stop or control worrying Not at all Anxiety Pre-Screening Total (If >/= 3 additional questions will be reviewed) 0 Genetic Screening: Partner present: No Patient verbalized knowledge of partner family health history: Yes Do you or your partner have any personal or family history of defects not previously discussed: No Do you have history of a complicated by anomaly, genetic condition, or demise: No OB Risk Screening: Completed, no positive findings documented. 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 No current facility-administered medications for this visit. Allergies As of Date: 04/21/2025 (No Known Allergies) Fully Assessed 04/21/2025 Does patient have penicillin allergy: No PHYSICAL EXAM: BP 112/68 Wt 224 lb 12.8 oz (102.0kg) LMP 02/19/2025 Limited OB ultrasound exam: YS and GS seen, no pole seen, confirmed by Dr Vang ASSESSMENT: 39 year old at 8w5d wks gestational age Will discuss care with on doctor and the office will reach out to the pt. 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 HPI: Michelle is a 39 year old Unavailable Female here to establish Obstetrical Care. Patient'slast menstrual period was 02/19/2025 (exact date). from OB Dating Form. was planned Complaints: Heart racing or skipping beats OB History Gravida4 Para2 Term1 Preterm1 AB1 Living2 SAB0 IAB0 Ectopic1 Multiple0 Live Births2 Comment: x 2 Previous history: Prior : never History of 4th degree laceration: No History of shoulder dystocia: No History of Hypertensive disorders including pre-eclampsia or gestational hypertension: No History of gestational diabetes: No Patient's Risk Screening for delivery: Have you had a prior prakash between 20w and 36w6d? No How many pregnancies have you had before? 3 Did you have a previous baby with a GBS Infection? No Please select all that apply for any prior : N/A MEDICAL/PSYCHOSOCIAL HISTORY: History of hemorrhage or bleeding concerns: No Thyroid Disease: No History of chronic hypertension: No History of pre-existing diabetes: No No results found for: ABORHD BMI 39.58 kg/(m^2) Last Pap: 09/16/2022 [facility]-US History of abnormal pap: Yes Prior treatment for cervical dysplasia: none. Last HPV: 09/16/2022, negative History of STDs: None Partner History of STDs: None Did you have a partner with Herpes? No Tobacco use: No E-Cigarette/Vaping Use: Yes Caffeine use: Yes, limited to one pop a day Drug use: No Alcohol use: No Multivitamin with Folic acid: Yes Would refuse blood transfusion if medically necessary: No Social Needs: How often does this describe you? I don't have enough money to pay my bills: Never Within the past 12 months, have you worried that your food would run out before you had money to buy more? Never In the past 12 months, has lack of reliable transportation kept you from going to medical appointments or work, or from getting things needed for daily living? Never In the past 12 months, have you had any concerns about having a place to live, or about the condition or quality of your housing? Never Would you like more information on any of the following (please check all that apply)? Not interested Social History: Do you have any history of depression, anxiety, PTSD, or other mood problems? Yes has not been an issue lately. Do you have a history of abuse or trauma that may impact your experience? No Are you currently employed? Yes Depression/Anxiety Screening: denies symptoms of depression. OB Depression and Anxiety Screening- This Encounter Feeling down, depressed, or hopeless: Not at all Little interest or pleasure in doing things: Not at all Feeling nervous, anxious, or on edge Not at all Not being able to stop or control worrying Not at all Anxiety Pre-Screening Total (If >/= 3 additional questions will be reviewed) 0 Genetic Screening: Partner present: No Patient verbalized knowledge of partner family health history: Yes Do you or your partner have any personal or family history of defects not previously discussed: No Do you have history of a complicated by anomaly, genetic condition, or demise: No OB Risk Screening: Completed, no positive findings documented. 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 No current facility-administered medications for this visit. Allergies As of Date: 04/21/2025 (No Known Allergies) Fully Assessed 04/21/2025 Does patient have penicillin allergy: No PHYSICAL EXAM: BP 112/68 Wt 224 lb 12.8 oz (102.0kg) LMP 02/19/2025 Limited OB ultrasound exam: YS and GS seen, no pole seen, confirmed by Dr Vang ASSESSMENT: 39 year old at 8w5d wks gestational age Will discuss care with on doctor and the office will reach out to the pt. Rani Yen APRN.CNP documented [facility] encounter[facility]06-24-[facility]25 Telephone encounter Note * Telephone Encounter - Claudette Kirkland MA - 04/15/2025 3:10 PM EDT Left voicemail to go over NOB intake question. Told patient to give our office a call back at her convince. Claudette Kirkland MA [facility]06-17-2025 NoteHNO ID: [id number] Author: LEENA BECERRIL MD Service: ? Author Type: Physician Type: Progress Notes Filed: 04/08/2025 16:58 Note Text: OB point of care ultrasound was performed. See imaging tab for details. Leena Becerril MD Michelle Henderson is a 39 year old female who presents for problem visit for spotting in . HPI: 39 YOF w/ short menses lasted 3 days February 19 somewhat normal for her. Wasn't preventing . Last was ectopic. No pain, a little intemittent nausea. OB History Gravida3 Para2 Term1 Preterm1 AB1 Living2 SAB0 IAB0 Ectopic1 Multiple0 Live Births2 Comment: x 2 Proj Engineer History LMP: 02/19/2025 (Exact Date), Having periods Age at Menarche: Age at First : Age at Menopause: Proj Engineer History Comments: Sexual Activity: Yes; Male Contraception: No contraception data on record PAST MEDICAL HISTORY Diagnosis Date Gastroparesis Liver disease PAST SURGICAL HISTORY Procedure Laterality Date BREAST BIOPSY NEEDLE RIGHT Right 09/17/2021 CHOLECYSTECTOMY HX 2015 FAMILY HISTORY Problem Relation Age of Onset other (MVP, IBS) Mother No Known Problems Father no relationship Cancer Sister cervical Depression Brother Social History Tobacco Use Smoking status: Former Passive exposure: Never Smokeless tobacco: Never Tobacco comments: Was vaping have already quit Vaping Use Vaping status: Former Substances: Nicotine, Flavoring Devices: Disposable Substance Use Topics Alcohol use: No Drug use: No Current Outpatient Medications Medication Sig PNV no.95/ferrous fum/folic ac ( ORAL) Take by mouth. FA/mv,Ca,iron,min/lycopene/lut (MULTIVITAL ORAL) Take by mouth. (Patient not taking: Reported on 04/08/2025) No current facility-administered medications for this visit. Allergies As of Date: 04/08/2025 (No Known Allergies) Fully Assessed 04/08/2025 Allergies and current medication updated:Yes SENSITIVE EXAM: The sensitive examination was discussed with the Patient or Patient's Authorized Parboiler. As applicable, any other physician, advance practice provider, medical student, or other health professional student that will be observing or involved in the sensitive examination for educational or training purposes was discussed with the Patient or Authorized Parboiler. The Patient or Authorized Parboiler has agreed to proceed with the sensitive examination. (Sensitive examination includes inspection and/or palpation of the breasts, pelvis, prostate and anorectal regions). EXAM: Wt 223 lb (101.2kg) LMP 02/19/2025 GENERAL: pleasant, female in no apparent distress PELVIC: external genitalia normal, normal Bartholin's glands, urethra, [place]'s glands, no vulvar lesions, no cervical lesions, good vaginal support, physiologic discharge present, normal appearing perineal body and perianal region, no gross blood, cervix closed BIMANUAL: uterus normal size, shape and consistency, no adnexal masses, and non-tender ASSESSMENT AND PLAN: Assessment AND Plan Vaginal bleeding affecting early (HCC) Orders: POC LABORATORY TECHNICAL SPECIALIST ULTRASOUND UA DIP,URINE HCG (POC) with uncertain dates in first trimester (HCC) + HCG so US done. H/o ectopic in previous . Orders: POC LABORATORY TECHNICAL SPECIALIST ULTRASOUND IUP with no pole, yolk sac appropriate size. Repeat US at NOB. Return/call prn heavier bleeding or other concerns. Patient comfortable w/ this plan. Cont. PNV. No quants indicated. Leena Becerril [facility]06-17-2025 History of Present illness Narrative* Leena Becerril MD - 04/08/2025 3:32 PM EDT OB point of care ultrasound was performed. See imaging tab for details. MD Ethan Metznick Henderson is a 39 year old female who presents for problem visit for spotting in . HPI: 39 YOF w/ short menses lasted 3 days February 19 somewhat normal for her. Wasn't preventing . Last was ectopic. No pain, a little intemittent nausea. OB History Gravida3 Para2 Term1 Preterm1 AB1 Living2 SAB0 IAB0 Ectopic1 Multiple0 Live Births2 Comment: x 2 Proj Engineer History LMP: 02/19/2025 (Exact Date), Having periods Age at Menarche: Age at First : Age at Menopause: Proj Engineer History Comments: Sexual Activity: Yes; Male Contraception: No contraception data on record PAST MEDICAL HISTORY Diagnosis Date Gastroparesis Liver disease PAST SURGICAL HISTORY Procedure Laterality Date BREAST BIOPSY NEEDLE RIGHT Right 09/17/2021 CHOLECYSTECTOMY HX 2014 FAMILY HISTORY Problem Relation Age of Onset other (MVP, IBS) Mother No Known Problems Father no relationship Cancer Sister cervical Depression Brother Social History Tobacco Use Smoking status: Former Passive exposure: Never Smokeless tobacco: Never Tobacco comments: Was vaping have already quit Vaping Use Vaping status: Former Substances: Nicotine, Flavoring Devices: Disposable Substance Use Topics Alcohol use: No Drug use: No Current Outpatient Medications Medication Sig PNV no.95/ferrous fum/folic ac ( ORAL) Take by mouth. FA/mv,Ca,iron,min/lycopene/lut (MULTIVITAL ORAL) Take by mouth. (Patient not taking: Reported on 04/08/2025) No current facility-administered medications for this visit. Allergies As of Date: 04/08/2025 (No Known Allergies) Fully Assessed 04/08/2025 Allergies and current medication updated:Yes SENSITIVE EXAM: The sensitive examination was discussed with the Patient or Patient's Authorized Parboiler. As applicable, any other physician, advance practice provider, medical student, or other health professional student that will be observing or involved in the sensitive examination for educational or training purposes was discussed with the Patient or Authorized Parboiler. The Patient or Authorized Parboiler has agreed to proceed with the sensitive examination. (Sensitive examination includes inspection and/or palpation of the breasts, pelvis, prostate and anorectal regions). EXAM: Wt 223 lb (101.2kg) LMP 02/19/2025 GENERAL: pleasant, female in no apparent distress PELVIC: external genitalia normal, normal Bartholin's glands, urethra, [place]'s glands, no vulvar lesions, no cervical lesions, good vaginal support, physiologic discharge present, normal appearing perineal body and perianal region, no gross blood, cervix closed BIMANUAL: uterus normal size, shape and consistency, no adnexal masses, and non-tender ASSESSMENT AND PLAN: Assessment & Plan Vaginal bleeding affecting early (HCC) Orders: POC LABORATORY TECHNICAL SPECIALIST ULTRASOUND UA DIP,URINE HCG (POC) with uncertain dates in first trimester (HCC) + HCG so US done. H/o ectopic in previous . Orders: POC LABORATORY TECHNICAL SPECIALIST ULTRASOUND IUP with no pole, yolk sac appropriate size. Repeat US at NOB. Return/call prn heavier bleeding or other concerns. Patient comfortable w/ this plan. Cont. PNV. No quants indicated. Leena Becerril MD documented [facility] encounter[facility]06-[facility] Telephone encounter Note * Telephone Encounter - Paula Marin RN - 04/08/2025 3:00 PM EDT Left message for patient to call office. Paula Marin RN [facility]06-17-2025 Miscellaneous Notes* Telephone Encounter - Paula Marin RN - 04/08/2025 3:00 PM EDT Left message for patient to call office. Paula Marin RN * Telephone Encounter - Leena Becerril MD - 04/08/2025 2:51 PM EDT IF she can be here by 330 I can see her today. Leena Becerril MD * Telephone Encounter - Melody Perez RN - 04/08/2025 9:56 AM EDT LMP 02/19/2025. Ega 6w6d. Pt states when 2 days ago-first time when wiping noticed light pink spotting, which only lasted a minute or two. Yesterday, darker and quarter size amount on underwear and when wiping. Hx of ectopic. Does not feel like last time. Denies cramping. Denies spotting today. Pt states she did have intercourse a few days before spotting began. Advised Pt to continue to monitor at this time. Advised to call office/go to ER if develops severe abdominal pain/vaginal bleeding and to call office with any questions/concerns. Pt has NOB 04/21/25. Advised Pt message would be sent to o/c provider and if any additional guidance is needed-we will notify her. Melody Perez RN * Telephone Encounter - Paula Marin RN - 04/08/2025 9:33 AM EDT Left message for patient to call office. Paula Marin RN documented in [facility] encounterWood [facility]06-17-2025 Telephone encounter Note * Telephone Encounter - Leena Becerril MD - 04/08/2025 2:51 PM EDT IF she can be here by 330 I can see her today. Leena Becerril MD [facility]06-17-2025 Telephone encounter Note* Telephone Encounter - Melody Perez RN - 04/08/2025 9:56 AM EDT LMP 02/19/2025. Ega 6w6d. Pt states when 2 days ago-first time when wiping noticed light pink spotting, which only lasted a minute or two. Yesterday, darker and quarter size amount on underwear and when wiping. Hx of ectopic. Does not feel like last time. Denies cramping. Denies spotting today. Pt states she did have intercourse a few days before spotting began. Advised Pt to continue to monitor at this time. Advised to call office/go to ER if develops severe abdominal pain/vaginal bleeding and to call office with any questions/concerns. Pt has NOB 04/21/25. Advised Pt message would be sent to o/c provider and if any additional guidance is needed-we will notify her. Melody Perez RN [facility]06-17-2025 Telephone encounter Note* Telephone Encounter - Paula Marin RN - 04/08/2025 9:33 AM EDT Left message for patient to call office. Paula Marin RN [facility]04-24-2025 NoteHNO ID: [id number] Author: CHRISTI AQUINO MD Service: ? 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 Encounter Diagnosis ICD-10-CM 1. Dysmenorrhea N94.6 Please see report under imaging tab. Christi Aquino MD February 13, 2025 8:20 [facility]04-22-2025 NoteHNO ID: [id number] Author: MARITA BLACKMAN MD Service: ? Author Type: Physician Type: Progress Notes Filed: 02/11/2025 09:02 Note Text: Building Surveyor offered: Patient declines. Michelle Henderson is a 39 year old female who presents for concerns regarding irregular bleeding since having ectiopic. Bleeding is less but pain is worse. Pt reports had methotrexate for treatment , reports for first few months normal cycles- q28 days- with flow for 5 days moderate flow. Pt reports now 1-2 days of normal flow- but then slows down to just spotting. Pt reports saw hse advisor yesterday and learned that factor 8 levels are elevated so puts her at risk for clots. Pt reports does vape nicotine products as well. Pt concerned about pain and if it is normal. Pt would like to consider and does not want to prevent it at this time. Pt has consult order already for SHEEBA. Pt offers no other concerns. Denies h/o STDS or pelvic infections OB History Gravida3 Para0 Term0 Preterm0 AB0 Living2 SAB0 IAB0 Ectopic0 Multiple0 Live Births0 Comment: x 2 Proj Engineer History LMP: 01/18/2025, Having periods Age at Menarche: Age at First : Age at Menopause: Proj Engineer History Comments: Sexual Activity: Yes; Male Contraception: [...] vaping have already quit Vaping Use Vaping status: Former Substances: Nicotine, Flavoring Devices: Disposable Substance Use Topics Alcohol use: No Drug use: No Current Outpatient Medications Medication Sig FA/mv,Ca,iron,min/lycopene/lut (MULTIVITAL ORAL) Take by mouth. PNV no.95/ferrous fum/folic ac ( ORAL) Take by mouth. No current facility-administered medications for this visit. Allergies As of Date: 02/11/2025 (No Known Allergies) Fully Assessed 02/11/2025 REVIEW OF SYSTEMS Abdomen: no pain . Expanded ROS: no fever Allergies and current medication updated:Yes SENSITIVE EXAM: The sensitive examination was discussed with the Patient or Patient's Authorized Parboiler. As applicable, any other physician, advance practice provider, medical student, or other health professional student that will be observing or involved in the sensitive examination for educational or training purposes was discussed with the Patient or Authorized Parboiler. The Patient or Authorized Parboiler has agreed to proceed with the sensitive examination. (Sensitive examination includes inspection and/or palpation of the breasts, pelvis, prostate and anorectal regions). EXAM: BP 102/60 Wt 220 lb (99.8kg) LMP 01/18/2025 GENERAL: pleasant, female in no apparent distress HEENT: Normocephalic and atraumatic NECK: full range of motion DERMATOLOGY: Normal, without lesions, non-icteric, and non-hirsute CHEST: Normal inspiratory effort ABDOMEN: soft, non-tender, and no masses PELVIC: external genitalia normal, normal Bartholin's glands, urethra, [place]'s glands, no vulvar lesions, normal appearing perineal body and perianal region BIMANUAL: uterus normal size, shape and consistency, no adnexal masses, and non-tender NEURO: alert and oriented x3,exam grossly non-focal EXTREMITIES: normal ASSESSMENT AND PLAN: Assessment AND Plan Dysmenorrhea Orders: PELVIC US WHI; Future ibuprofen (MOTRIN) 600 mg tablet; Take 1 tablet by mouth every 6 hours as needed for pain. FOR PAIN. Nicotine abuse ADVISED CESSATION Fatty liver Reviewed latest AST/ALT WNL FROM 11/2024 Reviewed progesterone only options for dysmenorrhea if decides against Reviewed starting ibuprofen 24-48hrs prior to onsent of menses PNV reviewed Avoid nicotine / vaping Dicussed consult with SHEEBA Causes of dysmenorrhea reviewed Medical Decision Making: Problems: Moderate: 1+ chronic illnesses with change Data: Unique test result(s) reviewed: 1 Unique test(s) ordered: 1 Risk: Moderate: Drug management Medical Decision Making Level: 4 - Moderate [facility] History of Present illness Narrative* Marita Blackman MD - 02/11/2025 8:25 AM EDT Building Surveyor offered: Patient declines. Michelle Henderson is a 39 year old female who presents for concerns regarding irregular bleeding since having ectiopic. Bleeding is less but pain is worse. Pt reports had methotrexate for treatment, reports for first few months normal cycles- q28 days- with flow for 5 days moderate flow. Pt reports now 1-2 days of normal flow- but then slows down to just spotting. Pt reports saw hse advisor yesterday and learned that factor 8 levels are elevated so puts her at risk for clots. Pt reports does vape nicotine products as well. Pt concerned about pain and if it is normal. Pt would like to consider and does not want to prevent it at this time. Pt has consult order already for SHEEBA. Pt offers no other concerns. Denies h/o STDS or pelvic infections OB History Gravida3 Para0 Term0 Preterm0 AB0 Living2 SAB0 IAB0 Ectopic0 Multiple0 Live Births0 Comment: x 2 Proj Engineer History LMP: 01/18/2025, Having periods Age at Menarche: Age at First : Age at Menopause: Proj Engineer History Comments: Sexual Activity: Yes; Male Contraception: [...] vaping have already quit Vaping Use Vaping status: Former Substances: Nicotine, Flavoring Devices: Disposable Substance Use Topics Alcohol use: No Drug use: No Current Outpatient Medications Medication Sig FA/mv,Ca,iron,min/lycopene/lut (MULTIVITAL ORAL) Take by mouth. PNV no.95/ferrous fum/folic ac ( ORAL) Take by mouth. No current facility-administered medications for this visit. Allergies As of Date: 02/11/2025 (No Known Allergies) Fully Assessed 02/11/2025 REVIEW OF SYSTEMS Abdomen: no pain . Expanded ROS: no fever Allergies and current medication updated:Yes SENSITIVE EXAM: The sensitive examination was discussed with the Patient or Patient's Authorized Parboiler. As applicable, any other physician, advance practice provider, medical student, or other health professional student that will be observing or involved in the sensitive examination for educational or training purposes was discussed with the Patient or Authorized Parboiler. The Patient or Authorized Parboiler has agreed to proceed with the sensitive examination. (Sensitive examination includes inspection and/or palpation of the breasts, pelvis, prostate and anorectal regions). EXAM: BP 102/60 Wt 220 lb (99.8kg) LMP 01/18/2025 GENERAL: pleasant, female in no apparent distress HEENT: Normocephalic and atraumatic NECK: full range of motion DERMATOLOGY: Normal, without lesions, non-icteric, and non-hirsute CHEST: Normal inspiratory effort ABDOMEN: soft, non-tender, and no masses PELVIC: external genitalia normal, normal Bartholin's glands, urethra, [place]'s glands, no vulvar lesions, normal appearing perineal body and perianal region BIMANUAL: uterus normal size, shape and consistency, no adnexal masses, and non-tender NEURO: alert and oriented x3,exam grossly non-focal EXTREMITIES: normal ASSESSMENT AND PLAN: Assessment & Plan Dysmenorrhea Orders: PELVIC US WHI; Future ibuprofen (MOTRIN) 600 mg tablet; Take 1 tablet by mouth every 6 hours as needed for pain. FOR PAIN. Nicotine abuse ADVISED CESSATION Fatty liver Reviewed latest AST/ALT WNL FROM 11/2024 Reviewed progesterone only options for dysmenorrhea if decides against Reviewed starting ibuprofen 24-48hrs prior to onsent of menses PNV reviewed Avoid nicotine / vaping Dicussed consult with SHEEBA Causes of dysmenorrhea reviewed Medical Decision Making: Problems: Moderate: 1+ chronic illnesses with change Data: Unique test result(s) reviewed: 1 Unique test(s) ordered: 1 Risk: Moderate: Drug management Medical Decision Making Level: 4 - Moderate Marita Jimenez MD documented [facility] Evaluation note* Diagnosis Onset Date Resolution Status Admit Date Elevated factor VIII level acute February 10, 2025 1:13pm Missed acute April 24, 2025 8:33am [facility] Work Phone: [phone]) 764-803910-23-2024 [facility] Medical Records Department [address] [place] [id number] History Physical Exam 08/14/24 0640 MR#: [id number] Acct: [id number] Name: MICHELLE HENDERSON Rep #: [id number] : 1985 39 From: Adilson Friend DO PCP: Dr. Zheng Sharif MD Status:[facility] Location: [place] [address] History and Physical Date of Admission: 08/14/24 MICHELLE HENDERSON, is a 39 F who presents to the office today for follow up. [facility] ED presentation 10.20.22 with epigastric and lower abdominal pain for a month with postprandial nausea without weight loss. Similar episode 2 years prior with associated weight loss. She was discharged without acute finding with Zofran and OCT acid leather stamper. ? Biochemical workup CBC, CMP, lipase, urine, without pertinent abnormalities. ? CT abd/pel s/p cholecystectomy; mild hepatomegaly without mass; nodular density of right lung breast. *BGI established 11.29.22 with upper GI symptoms as noted above, has required Zofran and acid leather stamper less frequently. Additionally, has current difficulty with varying stools: historically has loose/soft stools that has recently become more constipation with difficulty with initiation and harder stools. Nausea, EGD. Hepatomegaly, Biochemical workup and imaging. Biochemical workup CBC, ESR, CMP, LDH, Ferritin, A1c, hepatitis, HIV, AMA, ASM, PHILIPPE comp, ANCA, PERICO, AFP, haptoglobin, ammonia, coagulation without pertinent abnormality. CRP H4.72, ceruloplasmin H40.7, Copper H162? LFT AST L13-ALT 30-AP 55 ? US and elastography 12.08.22 hepatomegaly 20cm with fattyinfiltration stiffness measures 6.4kPa ? Gastric emptying study 12.12.22 31.73 minutes (12-56) ? EGD 01.30.23 EOE mucosal changes; LA grade A reflux esophagitis; small hiatal hernia; erythematous gastric body; chronic duodenitis. H.Pylori negative. OV 5.1.23 with ongoing nausea and stomach pain without identifiable trigger or alleviating factor; notes that she feels the need to clear her throat frequently and feels like she will have emesis with this. BM fluctuate between constipation with straining with soft/normal stool approximately 3- 4/week with loose stools other days of the week 1-2/day. ? Biochemical gastrin, RAST WNL Contact 02.27.23 with results. Reports ongoing abdominal pain and frequent clearing of her throat. ? GET 03.09.23 78.45 minutes (12-56) Contact, portal 03.14.23 with results. Start gastroparesis diet and management of stress/anxiety. [facility] ED 05.24.23 with depression that has been worsening; establishing with counseling/psychiatry later this month. No suicidal thoughts but wishes she would disappear. Lamictal earlier this year but prescription has run out and has not had anyone to prescribe it; prescription sent. [facility] ED 06.16.23 with epigastric pain. GI Cocktail provided with improvement of symptoms; likely gastritis, has not been taking her PPI. OV 07.10.23 feels that she continues to have dysphagia with throat clearing a couple times a week. Continues to have nausea and dry heaving. Seeing psychiatry and counseling services; feels her mental health is fair. She has not utilized the gastroparesis diet. Eating 2-3 times a day. Start levsin. ? EGD 08.09.23 EOE concern, path neg; irregular Zline; hiatal hernia; gastritis; duodenitis, metaplasia+. H.pylori neg. Contact 08.28.23 with results. Continue PPI and levsin use. GET results discussed with recommendation to use gastroparesis diet, still has information OV 3.24 OV 8.24 pt reports that she has noticed some difficulty swallowing recently and that she feels like food and liquids are getting stuck. Pt reports continued alternating bowel movements. Pt repo rts aching pain on the sides of her abdomen that comes and goes. Pt states that she is not very consistent with taking her pantoprazole. Has recently noticed that she is bruising easier and that she has some new dark spots on her forehead and is unsure what they are from. ROS Const Constitutional: Positive for fatigue and weight change (weight gain); No fever(s) ENT ENT: Positive for difficulty swallowing Gastro GI: Positive for abdominal pain, heartburn, difficulty swallowing and nausea/dyspepsia; No belching, bloating, change in bowel habits, change in stool character, coffee ground emesis, constipation, cramping, diarrhea, feeling full early, excessive flatus, incontinent of stools, Vomiting blood/hematemesis, Blood in stool, loose stools, Black,tarry stools, pain with swallowing, vomiting or other Musc M (more content not included)...[facility]08-23-2024 History of Present illness Narrative* Yobani Herrera Mammo Tech - 06/14/2024 9:30 AM EDT Radiology Service Progress Note PATIENT NAME: Michelle Henderson DATE OF SERVICE: June 14, 2024 TIME: 9:56 AM PATIENT IDENTITY VERIFICATION COMPLETED USING TWO (2) IDENTIFIERS: Name and Date of confirmedby patient verbally. FALL SCREENING: Has the patient had 2 falls in the last year or 1 fall with injury or currently using an Ambulatory Assistive Device (Walker, Cane, Wheelchair, Crutches, etc.)? No PATIENT GENDER DATA: Female. status: : No status: NO. PATIENT RELEVANT IMPLANT DATA REVIEWED: Not Applicable PATIENT PRESENTS WITH AN IMPLANTABLE OR ATTACHED VP OF GLOBAL MARKETING: No RADIOLOGY DEPARTMENT: Mammography PERIPHERAL IV DATA: Not applicable SIGNED BY: Lalo Bautista June 14, 2024 9:56 AM documented in this encounterWood [facility]08-23-2024 NoteHNO ID: [id number] Author: YOBANI HERRERA Mammo Tech Service: ? Author Type: Maintenance Department Manager Type: Progress Notes Filed: 06/14/2024 09:56 Note [...] PATIENT PRESENTS WITH AN IMPLANTABLE OR ATTACHED VP OF GLOBAL MARKETING: No RADIOLOGY DEPARTMENT: Mammography PERIPHERAL IV DATA: Not applicable SIGNED BY: Yobani Herrera [employer] June 14, 2024 9:56 [facility]08-14-2024 NotePatient Outreach (INTMMN) MICHELLE HENDERSON ([id number]) 1985 F Date Time Provider Department 06/05/24 ZHENG SHARIF During your visit today, we recorded the following information about you: Allergies As of Date: 06/05/2024 (No Known Allergies) Date Reviewed: 04/02/2024 Reviewed by: Divine Cardona MD - Fully Assessed Visit Diagnosis:Encounter for screening mammogram for breast cancer [Z12.31] Order(s):PRIYANKA SCREENING W BERTA [[id number]] Order #: [id number] FUTURE Prescriptions as of 06/10/2024 - PNV no.95/ferrous fum/folic ac ( ORAL) Take by mouth. Problem List As Of Date 06/05/2024 Noted Resolved Bipolar 2 disorder (HCC) [F31.81] 11/03/2022 STORMY (generalized anxiety disorder) [F41.1] 11/03/2022 Encounter Status:Closed by MISA PERSUADUSETigist on 06/10/24[facility] 04-09[facility] History of Present illness Narrative* Danita Roland MD - 04/09/2024 3:03 PM EDT The patient presents for requested ultrasound. Full report available in the Imaging tab in Epic. Danita Roland MD documented in this encounterWood [facility] Hospital06-14-2024 Telephone encounter Note * Telephone Encounter - Carmen Smith RN - 04/05/2024 2:46 PM EDT Patient notified of results, verbalizes understanding of instructions. Carmen Smith RN [facility]06-14-2024 Miscellaneous Notes* Telephone Encounter - Carmen Smith RN - 04/05/2024 2:46 PM EDT Patient notified of results, verbalizes understanding of instructions. Carmen Smith RN * Telephone Encounter - Carmen Smith RN - 04/05/2024 2:27 PM EDT Left message to call office. Carmen Smith RN * Telephone Encounter - Carmen Smith RN - 04/05/2024 2:27 PM EDT ----- Message from Divine Cardona MD sent at 04/05/2024 1:53 PM EDT ----- Labs normal Vitamin D is low normal so supplementations with 600IU daily would be reasonable Divine Cardona MD documented in this encounterWood County Hospital06-14-2024 Telephone encounter Note * Telephone Encounter - Carmen Smith RN - 04/05/2024 2:27 PM EDT Left message to call office. Carmen Smith RN [facility]06-[facility] Telephone encounter Note* Telephone Encounter - Carmen Smith RN - 04/05/2024 2:27 PM EDT ----- Message from Divine Cardona MD sent at 04/05/2024 1:53 PM EDT ----- Labs normal Vitamin D is low normal so supplementations with 600IU daily would be reasonable Divine Cardona MD [facility]06-11-[facility] History of Present illness Narrative* Divine Cardona MD - 04/02/2024 3:07 PM EDT Michelle Henderson is a 38 year old female who presents for problem visit. HPI: Patient presents as menses have changed. Menses is now physical damage appraiser but still last 5 days. Also they used to be about 30 days apart and now but are still at least 24 days apart. She reports some bilateral pelvic pain over the past 1-2 months. Patient also reports fatigue. She is interested in and wonders how long it will take. OB History T0 L2 SAB0 IAB0 Ectopic0 Multiple0 Live Births0 Comment: x 2 Proj Engineer History LMP: 03/25/2024, Having periods Age at Menarche: Age at First : Age at Menopause: Proj Engineer History Comments: Sexual Activity: Yes; Male Contraception: [...] Medical Decision Making Level: 4 - Moderate Divine Cardona MD documented in this encounterWood [facility] Hospital04-24-2024 History of Present illness Narrative* William Kraus MD - 02/14/2024 3:16 PM EDT Patient presents with: Throat Problem: Swollen lymph [...] hours. Follow up with worsening symptoms. William Kraus MD documented in this encounterWood [facility]03-01-2024 Miscellaneous Notes* Telephone Encounter - Linda Sloan MD - 12/22/2023 9:29 AM EST filed * Telephone Encounter - Carmen Smith RN - 12/22/2023 8:41 AM EST Patient notified and voiced understanding of results and instructions. Please file pended order for repeat next week. Carmen Smith RN * Telephone Encounter - Carmen Smith RN - 12/22/2023 8:41 AM EST ----- Message from Linda Sloan MD sent at 12/21/2023 5:03 PM EST ----- HCG quant continues to down trend. Repeat 1 week until negative documented in this encounterWood County Hospital02-29-2024 History of Present illness Narrative* Divine Cardona MD - 12/21/2023 9:51 AM EST Michelle Henderson is a 38 year old female who presents for problem visit. HPI: Patient presents in ectopic follow up. She denies vaginal bleeding or abdominal pain. OB History T0 L2 SAB0 IAB0 Ectopic0 Multiple0 Live Births0 Comment: x 2 Proj Engineer History LMP: 10/09/2023, Recent Age at Menarche: Age at First : Age at Menopause: Proj Engineer History Comments: Sexual Activity: Yes; Male Contraception: [...] Medical Decision Making Level: 3 - Low Divine Cardona MD documented in this encounterWood County Hospital02-09-2024 Miscellaneous Notes* Telephone Encounter - Paula Marin RN - 12/01/2023 9:31 AM EST Patient notified. Paula Marin RN * Telephone Encounter - Neena Guillory RN - 12/01/2023 9:24 AM EST Left message for patient to call office. NEENA GUILLORY RN * Telephone Encounter - Neena Guillory RN - 12/01/2023 9:24 AM EST ----- Message from Linda Sloan MD sent at 12/01/2023 8:14 AM EST ----- Notify pt HCG quant decreased by > 15% which is good. HCG quant to be drawn weekly. Other labs are ok as well. To repeat CBC and CMP next week with her HCG quant. Standing orders were already placed so should be ok documented in this encounterWood County Hospital02-05-2024 History of Present illness Narrative* Aaliyah Mendoza, CUSTOMER ENGAGEMENT MANAGER.ADJUSTER AND INSPECTOR - 11/27/2023 2:05 PM EST CC: Patient presents with: Physical HPI Michelle [...] 86 Resp 16 Ht 160.5 cm (5' 3.19) Wt 83.9 kg (185 lb) LMP 10/09/2023 [...] diet of 1000 mg/day for under 50, 1200- 1500 mg/day for 50+ - Discussed need and benefit for weight loss. BMI 32.58 kg/(m^2) - Depression screening tool completed and reviewed with patient. Based on score and interview, patient is not at risk for depression and recommended no further intervention at this time. - Patient was counseled [id number] by myself (the billing provider) for the [...] Patient agreeable to treatment plan. Aaliyah Mendoza APRN.ADJUSTER AND INSPECTOR documented in this encounterWood County Hospital02-01-2024 Miscellaneous Notes* Addendum Note - Linda Sloan MD - 11/23/2023 2:54 PM ESTAddended by: LINDA SLOAN on: 11/23/2023 02:54 PM Modules accepted: Orders * Addendum Note - Kajal Pena RN - 11/23/2023 2:53 PM ESTAddended by: KAJAL PENA on: 11/23/2023 02:53 PM Modules accepted: Orders documented in this encounterWood County Hospital02-01-2024 History of Present illness Narrative* Linda Sloan MD - 11/23/2023 12:05 PM EST Michelle Henderson is a 38 year old female who presents for problem visit - follow up after pelvicultrasound. HPI: Patient presented to office today for a scheduled pelvic ultrasound. She denies pain or bleeding at this time. Saw ABATEMENT WORKER for NOB visit on 11/20/23 who was following HCG quants: 67 > 1,034 > 701. She has no pain but did have RLQ tenderness during the pelvic US, which has since resolved. She feels well and offers no complaints. OB History T0 L2 SAB0 IAB0 Ectopic0 Multiple0 Live Births0 Comment: x 2 Proj Engineer History LMP: 10/09/2023, Age at Menarche: Age at First : Age at Menopause: Proj Engineer History Comments: Sexual Activity: Yes; Male Contraception: [...] Level: 4 - Moderate documented in this encounterWood County Hospital02-01-2024 Instructions* Patient Instructions* Kajal Pena RN - 11/23/2023 9:59 AM [...] of this medication more commonly develop with buttermaker treatment, such as received by cancer patients. [...] Day 7 after receiving the methotrexate (Day 1is the day of treatment) to confirm that it is working appropriately. Day 1: 11/23/2023 (Methotrexate Administration) Day 4: TBD Day 7: TBD See your physician on Day 7 or [...] directly. Encounter provider: Linda Sloan MD Number: [phone] Evenings and weekends: After hours, the office number will forward to the answering service who will contact the on-call Gynecology (SUPERVISOR PRINTING SHOP) doctor. If there is difficulty in connecting, the alternative number is [phone]. Note: If your concern is an emergency, [...] of this medication more commonly develop with longterm treatment, such as received by cancer patients. [...] Day 7 after receiving the methotrexate (Day 1is the day of treatment) to confirm that [...] directly. Encounter provider: Linda Sloan MD Number: [phone] Evenings and weekends: After hours, the office number will forward to the answering service who will contact the on-call Gynecology (SUPERVISOR PRINTING [employer]) doctor. If there is difficulty in connecting, the alternative number is [phone]. Note: If your concern is an emergency, please call 911. documented in this encounterWood County Hospital01-22-2024 Discharge summary Author Vasiliy Benitez [facility] November 13, 2023 12:40am Note Date/Time November 12, 2023 1 0:08pm [facility] Medical Records Department [address] [place] [address] Emergency Department Summary 11/12/23 MR#: [id number] Acct: [id number] Name: MICHELLE HENDERSON Rep #:[id number] : 1985 38 From: Vasiliy Benitez MD PCP: Dr. Zheng Sharif MD Status:REG E R Location: ED HPI HPI - Female History of Present Illness Chief Complaint: Vag Bld, Preg Informant: patient Narrative Narrative: Patient presents with vaginal bleeding in . This is a female. She estimates she is about 5 and half weeks bydates. About an hour or so ago she urinated. After she wiped there was a little blood on the tissue. She did not see blood in the urine. No dysuria. No blood in the stool. She is having no pain discomfort pressure. Not lightheaded or dizzy. She has an appointment with a center for ultrasound on Monday. She has an appointment with an unknown STEREO OPERATOR at [facility] on the . [facility] Medical History Bipolar disorder Difficulty swallowing Fatty liver GERD (gastroesophageal reflux disease) History of hiatal hernia Migraine headache Non-smoker Post traumatic stress disorder (PTSD) Shortness of breath on exertion Allergy/AdvReac Type Severity Reaction Status Date / Time No Known Allergies Allergy Verified 08/03/23 11:44 Surgical History History of esophagogastroduodenoscopy (EGD) Hx of cholecystectomy Social History Smoking Status: Never smoker ROS ROS ED Constitutional Constitutional ED: Denies chills or fever(s) ENT ENT ED: Denies sore throat Cardiovascular Cardiovascular: Denies chest pain, palpitations or racing heartbeat Respiratory/Chest Respiratory/Chest: Denies cough Gastrointestinal Gastrointestinal: Denies abdominal pain, constipation, diarrhea, melena, nausea or vomiting Genitourinary Genitourinary ED: Reports other Details: See history of present illness. ; Denies dysuria, hematuria or urinary frequency Musculoskeletal Musculoskeletal: Denies myalgias Integumentary Denies rash Hematologic/Lymphatic Hematologic/Lymphatic: Denies easy bleeding or easy bruising EXAM Physical Exam Narrative Exam Narrative: CONSTITUTIONAL: Patient is nontoxic in appearance. The patient looks comfortable. HEENT: No notable trauma. Mucous membranes moist. EYES: No c pallor. CARDIOVASCULAR: Regular rate. Regular rhythm. No notable murmur. No JVD. RESPIRATORY: No respiratory distress. Breathing is unlabored. No wheezes. No rhonchi. No rales. No pain with a deep breath. GASTROINTESTINAL: Not distended. Bowel sounds are normal. No tenderness. No guarding. No rebound. Overall very benign abdomen. GENITOURINARY: No tenderness over the bladder. No CVA tenderness. MUSCULOSKELETAL: Atraumatic. No peripheral edema. No tenderness. No mottling. NEUROLOGICAL: Patient is alert and appropriate. No focal deficit noted. SKIN: No noted rashes. No diaphoresis. PSYCHIATRIC: Patient is calm. Mood is appropriate. Const Vital Signs: 11/12/23 21:33 Temperature 97.4 F L Temperature Source Temporal Pulse Rate 97 Respiratory Rate 18 Blood Pressure 129/92 H Blood Pressure Mean 104 Pulse Ox 100 Oxygen Delivery Method Room Air MDM MDM MDM Narrative Medical decision making narrative: Patient CBC is overall normal with normal hemoglobin and platelets. Patient's quantitative beta-hCG is 403. Patient's last menstrual period is a little uncertain but might be 08 October. This would put her right at 5 weeks. This is a low hormone level for this time. But later in the visit I find that the patient reports having a hormone level of 67 on the 16th of this month. Therefore this is increasing. Patient's blood type is a positive. Patient's urinalysis is negative for blood or signs of infection. Patient's ultrasound shows no definitive intrauterine . They do make note of a tiny cystic structure about 0.1 x 0.2 cm in the endometrial canal thatis nonspecific. This could be early gestational sac. I will try to write for outpatient repeat hormone level. She should follow-up with her appointments. If she develops pain heavy bleeding lightheadedness she should return. Lab Data Attestation: I reviewed the patient's lab results. Labs: Laboratory Results - last 24 hr 11/12/23 11/12/23 11/12/23 22:17 22:23 22:41 WBC 6.0 RBC 4.36 Hgb 13.0 Hct 39.2 MCV 89.9 MCH 29.8 MCHC 33.2 RDW Std Deviation 42.2 RDW Coeff of José 12.8 Plt Count 261 MPV 10.4 Immature Gran % (Auto) 0.300 Neut % (Auto) 64.5 Lymph % (Auto) 25.9 [place] % (Auto) 8.0 Eos % (Auto) 1.0 Baso % (Auto) 0.3 Absolute Neuts (auto) 3.9 Absolute Lymphs (auto) 1.55 Nucleated RBC % 0 HCG, Quant 403 H Urine Color Yellow Urine Clarity Sl. Cloudy Urine pH 6.0 Ur Specific [place] 1.015 Urine Protein 15 H Urine Glucose (UA) Normal Urine Ketones Negative Urine Occult Blood 25 H Urine Nitrite Negative Urine Bilirubin Negative Urine Urobilinogen Normal Ur Leukocyte Esterase Negative Urine RBC 0 SEEN Urine WBC 0 SEEN Ur Squamous Epith Cells 0-5 SEEN Urine Bacteria 0 SEEN Urine Mucus 0 SEEN Blood Type A POSITIVE Radiography Diagnostic Testing: Clinical Impression(s) from Imaging Studies Obstetrics Ultrasound 11/12/23 22:05 IMPRESSION: No evidence of intrauterine . Differential diagnosis includes early intrauterine , missed , and ectopic . Ectopic is not excluded. Correlate with serial hCG levels and follow-up ultrasound as needed. Electronically Signed: Katrin Fields MD at 0:20 EST Reading Location ID and State: [address] [place] [address] Tel , Service support , Discharge Plan Triage Chief Complaint: Vag Bld, Preg ED Provider: Vasiliy Benitez Dx/Rx/DC Orders Clinical Impression: Vaginal bleeding during Instructions: Vaginal Bleeding During Other Ambulatory Orders: hCG Titer Quant., Serum (Routine) Timeframe: 20231115 Facility: [facility] - Location: Laboratory Ordered By: Dr. Vasiliy Benitez Primary Care Provider: Zheng Sharif Referrals: Zheng Sharif MD [Primary Care Provider] - Activity Restrictions/Additional Instructions: Follow-up with your to upcoming OB appointments. Disposition Disposition: Home, Self Care What to do if you have Problems For any increased pain, shortness of breath, bleeding, nausea or vomiting, chestpain, or any unexpected problems, contact your Primary Care Provider. Call [facility] ([phone]) or report to the closest Emergency Room. Call 911 if necessary. 11/13/23 0040 <Electronically signed by Vasiliy Benitez MD> Cosigner Signature (if applicable): CC: Dr. Zheng Sharif MD ~ Signed [facility] Work Phone: 1([phone]) 989-226911-17-2023 History of Present illness Narrative* Older, Aaliyah, CUSTOMER ENGAGEMENT MANAGER.ADJUSTER AND INSPECTOR - 09/08/2023 8:05 AM EST CC: Patient presents with: Dizziness: Has taken [...] due nausea. She has taken quite a fewtests, some with a faint positive line and [...] intact. Coordination: Romberg sign negative. Coordination normal. Vcapif-Xcwi-Ehxkdc Test normal. Rapid alternating movements normal. Gait: Gait and tandem walk normal. Deep Tendon Reflexes: Reflexes are normal and symmetric. Comments: [place] Hallpike negative DATA REVIEWED: Most recent labs [...] plan. Aaliyah Pineda APRN.CNP documented [facility] History and physical note Author Adilson Cobb [facility] August 09, 2023 11:48am Note Date/Time August 09, 2023 1 1:48am [facility] Medical Records Department [address] [place] [address] History & Physical Exam 08/09/23 1148 MR#: [id number] Acct: [id number] Name: MICHELLE HENDERSON Rep #:[id number] : 1985 38 From: Adilson Cobb DO PCP: Dr. Zheng Sharif MD Status:REG S DC Location: [place] [address]- History and Physical Date of Admission: 08/09/23 38 F who presents to the office today for [facility] ED presentation 10.20.22 with epigastric and lower abdominal pain for a month with postprandial nausea without weight loss. Similar episode 2 years prior with associated weight loss. She was discharged without acute finding withZofran and OCT acid leather stamper. ? Biochemical workup CBC, CMP, lipase, urine, without pertinent abnormalities. ? CT abd/pel s/p cholecystectomy; mild hepatomegaly without mass; nodular density of right lung breast. *BGI established .. with upper GI symptoms as noted above, has required Zofran and acid leather stamper less frequently. Additionally, has current difficulty with varying stools: historically has loose/soft stools that has recently becomemore constipation with difficulty with initiation and harder stools. Nausea, EGD. Hepatomegaly, Biochemical workup and imaging. Biochemical workup CBC, ESR, CMP, LDH, Ferritin, A1c, hepatitis, HIV, AMA, ASM, PHILIPPE comp, ANCA, PERICO, AFP, haptoglobin, ammonia, coagulation without pertinent abnormality. CRP H4.72, ceruloplasmin H40.7, Copper H162? LFT AST L13-ALT 30-AP 55 ? US and elastography 12.08.22 hepatomegaly 20cm with fatty infiltration stiffness measures 6.4kPa ? Gastric emptying study 12.12.22 31.73 minutes (12-56) ? EGD 01.30.23 EOE mucosal changes; LA grade A reflux esophagitis; small hiatal hernia; erythematous gastric body; chronic duodenitis. H.Pylori negative. OV 5.1.23 with ongoing nausea and stomach pain without identifiable trigger or alleviating factor; notes that she feels the need to clear her throat frequentlyand feels like she will have emesis with this. BM fluctuate between constipationwith straining with soft/normal stool approximately 3-4/week with loose stools other days of the week 1-2/day. ? Biochemical gastrin, RAST WNL Contact 02.27.23 with results. Reports ongoing abdominal pain and frequent clearing of her throat. ? Gastric emptying study 03.09.23 78.45 minutes (12-56) Contact, portal 03.14.23 with results. Start gastroparesis diet and management ofstress/anxiety. [facility] ED .12.15 with depression that has been worsening; establishing with [id number]/psychiatry later this month. No suicidal thoughts but wishes she would disappear. Lamictal earlier this year but prescription has run out and hasnot had anyone to prescribe it; prescription sent. [facility] ED 06.16.23 with epigastric pain. GI Cocktail provided with improvement of symptoms; likely gastritis, has not been taking her PPI. OV 07.10.23 feels that she continues to have dysphagia with throat clearing a couple times a week. Continues to have nausea and dry heaving. Seeing psychiatryand counseling services; feels her mental health is fair. She has not utilized the gastroparesis diet. Eating 2-3 times a day. ROS Const Constitutional: No anorexia, fatigue, fever(s), weight change or sleep problems Eyes Eyes: No change in vision ENT ENT: No abnormal hearing, difficulty swallowing, mouth lesions, tongue swelling or throat swelling Resp Respiratory: No cough or shortness of breath Cardio Cardiology: No chest pain at rest, chest pain with exertion, shortness of breathor dyspnea on exertion Gastro GI: No difficulty swallowing Genitourinary-Female: No difficulty urinating or burning urination Musc Musculoskeletal: No joint pain, joint swelling, muscle weakness or decreased muscle mass Skin Skin: No hair loss in leg, yellowing of the eye, itchy eyes, rash, skin ulcer orskin swelling Neuro Neurology: No abnormal hearing, abnormal movements, confusion, unsteady gait/balance or memory loss Psych Psychiatric: No anxiety, No confusion and No memory loss Endo Endocrine: No fatigue or weight change Aller/Imm Allergy/Immunologic: No itchy eyes, throat swelling or tongue swelling Tiago/Lymp Hematologic/Lymphatic: No easy bleeding, easy bruising or enlarged lymph nodes Exam Const General: cooperative and comfortable Nutritional Appearance: average body habitus and well nourished [facility] Head: normal to inspection Ears: hearing grossly normal bilaterally Nose: external nose normal Face and sinus: normal facial exam Mouth: oral mucosae normal Throat: posterior oropharynx normal Eyes General: appearance normal, both eyes and all related structures Neck Neck: normal visual inspection Chest Chest palpation & inspection: normal inspection of the chest and normal palpation of entire chest wall Resp Effort & Inspection: normal respiratory effort Auscultation: Bilateral: Clear to Auscultation Cardio Palpation: normal PMI Rate: regular rate Rhythm: regular rhythm GI Inspection: normal to inspection Auscultation: normal bowel sounds Percussion: normal to percussion Palpation: no hepatosplenomegaly Skin General: no rashes or lesions noted Neuro General: patient alert Extrem General: normal to inspection Psych Affect: normal affect Quality Reporting Tobacco Screening ([facility] 138) Smoking Status: Current some day smoker Assessment and Plan Assessment and Plan (1) Nausea: Status: Chronic Plan: I think her nausea is multifactorial. She does vape what I think contributes toa lot of her symptoms. I think this is symptomatic and the patient that has excess gastric acid production as seen on upper endoscopy in the setting of a hiatal hernia and dilated lower esophageal sphincter. We talked about abstinence or decrease the amount of vaping that she does in order to help her underlying issues that involve her upper GI tract. We will see if she has any underlying gastroparesis or motility disorders of the upper GI tract. (2) Hepatomegaly: Status: Chronic Plan: Hepatomegaly with underlying nonalcoholic fatty liver disease. She does not drink any alcohol. She underwent a FibroScan that did show an F2 with a Medicare score of 6.8. That is an F2. We discussed ways in order to decrease her fibrosis score. I would not put her on medicines at this time. We discussed weight loss and other modalities in order to decrease the liver size. We had discussed GLP-1 inhibitors such as semaglutide and Actos which has been proven to decrease the mild liver inflammation and 5 study subsequently. We will address that in the future after we have her work-up completed. (3) Eosinophilic esophagitis: Status: Chronic Plan: We discussed the 2 types of eosinophilic esophagitis being GERD related and not GERD related. We will get a RAST study to see if there is a food allergy associated with it. However in the setting of a dilated lower esophageal sphincter, hiatal hernia and possible gastroparesis I think this is mostly an acid issue. Therefore we will put her on pantoprazole 40 mg p.o. twice daily. (4) Hiatal hernia: Status: Chronic Plan: I think she will need underlying gastric emptying study and weight loss what I think will significantly contribute to her needing to possibly think about doinganything surgical for her hiatal hernia. (5) Alternating constipation and diarrhea: Status: Chronic Plan: I think her alternating diarrhea and constipation is secondary to accelerated gastrocolic reflex and the setting of bile induced reflux esophagitis. We will await her gastric emptying study. I have examined the patient and the H&P has been reviewed. There are no clinicalchanges since date of exam. 08/09/23 1149 <Electronically signed by Adilson Cobb DO> Cosigner Signature (if applicable): CC: Dr. Zheng Sharif MD; Adilson Cobb DO~ Signed [facility] Work Phone: 1([phone]) 180-107810-18-2023 Procedure [facility] 08-09-2023 [facility]08[facility]23 Discharge summary Author Xavier Arroyo [facility] June 16, 2023 10:45pm Note Date/Time June 16, 2023 10 :18pm [facility] Medical Records Department [address] [place] [address] Emergency Department Summary 06/16/23 MR#: [id number] Acct: [id number] Name: MICHELLE HENDERSON Rep #:[id number] : 1985 38 From: Xavier Arroyo MD PCP: Dr. Zheng Sharif MD Status:REG E R Location: ED HPI History of Present Illness Chief Complaint: Abd Pain Narrative Narrative: Patient presents with epigastric pain, its been ongoing for a few years that gotworse tonight. She has a history of hiatal hernia and gastritis. Pain does notradiate into her back. She has no lower abdominal pain. She has no nausea or vomiting. No recent fevers or chills. She is status post a cholecystectomy [facility] Medical History Bipolar disorder Fatty liver GERD (gastroesophageal reflux disease) Smoker Umbilical hernia Home Medications cholecalciferol (vitamin D3) 125 mcg (5,000 unit) tablet 125 mcg PO DAILY 12/28/22 [History Last Taken Unknown] desogestrel 0.15 mg-ethinyl estradiol 0.03 mg tablet (Enskyce) 1 tab PO DAILY 12/28/22 [History Last Taken 01/30/23] lamotrigine 25 mg tablet 75 mg PO DAILY 12/28/22 [History Last Taken Unknown] pantoprazole 40 mg tablet,delayed release 40 mg PO BID #60 tabs 02/20/23 [Rx Last Taken Unknown] sucralfate 1 gram tablet 1 g PO QAC #90 tabs 03/03/23 [Rx Last Taken Unknown] lamotrigine 25 mg tablet (Lamictal) 25 mg PO BID 28 days #76 tabs 05/24/23 [Rx Last Taken Unknown] pantoprazole 40 mg tablet,delayed release 40 mg PO DAILY #60 tabs 06/16/23 [Rx Last Taken Unknown] Allergy/AdvReac Type Severity Reaction Status Date / Time No Known Allergies Allergy Verified 05/24/23 12:16 Surgical History Hx of cholecystectomy Social History Smoking Status: Current some day smoker tobacco type: cigarettes and e- cigarettes ROS ROS ED ROS Narrative Past medical history: Reviewed Medications: Reviewed Social history: Noncontributory Review of systems: All systems negative except as indicated General: No fever ENT: No upper airway congestion, normal voice Neck: No neck pain Cardiovascular: No chest pain Respiratory: No shortness of breath or cough Gastrointestinal: Epigastric pain as in HPI Genitourinary: No dysuria Musculoskeletal: Denies myalgias no difficulty with ambulation Skin: No rash EXAM Physical Exam Narrative Exam Narrative: Physical exam General: Well nourished, Well developed, No Acute Distress Head: Normocephalic, Atraumatic ENT: Moist mucous membranes Neck: Supple, Nontender, No lymphadenopathy Cardiovascular: Regular rate, Regular rhythm Respiratory: No distress, CTA bilaterally Abdomen: Soft, mild epigastric tenderness to palpation. There is no guarding orrebound. Negative Camacho's no pain in the right upper quadrant. There is no pain at McBurney's. No lower abdominal pain at all. Back: Nontender, Normal Inspection. Negative for: CVA tenderness Extremities: Nontender, No edema Skin: Normal color, No rash Neurological: Alert, Normal Strength, Normal Sensation Const Vital Signs: 06/16/23 22:04 Temperature 96.8 F L Temperature Source Temporal Pulse Rate 88 Respiratory Rate 16 Blood Pressure 121/95 H Blood Pressure Mean 103 Pulse Ox 100 Oxygen Delivery Method Room Air MDM MDM MDM Narrative Medical decision making narrative: Chest x-ray read by me as normal MDM: Patient has a normal chest x-ray. She has chronic pain and its been there for a few years, I gave her GI cocktail her pain is improved. I believe she likely has gastritis, she is being seen by GI for this but she has not taken herpantoprazole in quite some time. I will give her a new prescription. I do not believe she has gallbladder is her etiology, she has had a history of cholecystectomy and she does not have any kind of obstructive type a history or physical exam findings. I do not believe blood work including lipase and LFTs is needed. I do not believe she has pancreatitis. I do not believe she needs aCT of the abdomen or pelvis. Since her pain improved after GI cocktail I believe she is stable for discharge. Radiography Diagnostic Testing: Clinical Impression(s) from Imaging Studies Chest X-Ray 06/16/23 22:18 IMPRESSION: No radiographic evidence of acute cardiopulmonary disease. Electronically Signed: Brandan Vargas MD at 22:28 EDT Reading Location ID and State: [address] [place] [address] Tel , Service support , Discharge Plan Triage Chief Complaint: Abd Pain ED Provider: Xavier Arroyo Dx/Rx/DC Orders Clinical Impression: Gastritis, Hiatal hernia Instructions: ED Gastritis (Adult) Prescriptions: New pantoprazole 40 mg tablet,delayed release (DR/EC) 40 mg PO DAILY Qty: 60 0RF No Action pantoprazole 40 mg tablet,delayed release (DR/EC) 40 mg PO BID Qty: 60 5RF desogestrel-ethinyl estradiol [Enskyce] 0.15-0.03 mg tablet 1 tab PO DAILY lamotrigine 25 mg tablet 75 mg PO DAILY Patient Comments: take 1 tablet by mouth once daily for 14 days then 2 once daily for 14 days then 3 TABS DAILY cholecalciferol (vitamin D3) 125 mcg (5,000 unit) tablet 125 mcg PO DAILY lamotrigine [Lamictal] 25 mg tablet 25 mg PO BID 28 Days Qty: 76 0RF Rx Instructions: 25 mg twice a day for 2 weeks then increase to 50 mg twice a day for 2 weeks sucralfate 1 gram tablet 1 g PO QAC Qty: 90 0RF Rx Instructions: take one hour before meals and one hour away from other medications. Primary Care Provider: Zheng Sharif Referrals: Zheng Sharif MD [Primary Care Provider] - 3-5 Days Disposition Disposition: Home, Self Care What to do if you have Problems For any increased pain, shortness of breath, bleeding, nausea or vomiting, chestpain, or any unexpected problems, contact your Primary Care Provider. Call [facility] ([phone]) or report to the closest Emergency Room. Call 911 if necessary. 06/16/232244 <Electronically signed by Xavier Arroyo MD> Cosigner Signature (if applicable): CC: Dr. Zheng Sharif MD ~ Signed [facility] Work Phone: 1(161) 178-656606-26-2023 Miscellaneous Notes* Telephone Encounter - Shannan Wellington LPN - 04/17/2023 11:06 AM EDT Message to call office to schedule FU when Meredith returns and once scheduled refills can be sent. * Telephone Encounter - Donna Qureshi MD - 04/13/2023 9:21 PM EDT Please help her schedule a follow-up when Meredith is back. I will send in a script with the titrationonce she has an appt * Telephone Encounter - Sujatha Schultz Ma - 04/13/2023 1:28 PM EDT Spoke to patient since she has not had refill since 03/17. Patient said after last dose never calledin for refill and has not been taking for almost a month. Patient aware this medication should not be abruptly stopped, also aware may have to start titration over again since been off of for period of time. 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 Mass of right breast, unspecified quadrant - ICD9: 611.72, ICD10: N63.10 - [facility] DIAGNOSTIC BILAT - BREAST LTD RT Zheng Sharif MD documented in this encounterWood [facility]01-24-2023 History of Present illness Narrative* DIANNE Henderson - 11/15/2022 1:25 PM EST This note was created using [id number]. Subjective Michelle Henderson is a 37 year [...] bleeding. No abdominal pain or pelvic pain. Statesoccasionally she gets some low back pain. She [...] pain or abnormal vaginal bleeding. -Follow-up with outbound sales consultant on 11/29/2022 as scheduled. -Possibly irregular menses [...] ER evaluation. DIANNE Henderson documented in this encounterWood [facility]12-21-2022 Miscellaneous Notes* Telephone Encounter - Edis Monge - 10/12/2022 10:05 AM EST Patients 11/10/21 appointment needs rescheduled due to provider vacation, called patient to reschedule but no answer and the VM box was full so could not leave message. I have set out a Algramot message regarding this issue. According to patients chart this appointment is not for any medications there for it can be rescheduled to the firs available whether in person or VV documented in this encounterWood [facility]12-02-2022 Miscellaneous Notes* Telephone Encounter - June Pineda APRN.CNP - 09/23/2022 1:06 PM EST This was probable cause of slight elevation. No need for repeat labs at this time. Thank you June Pineda APRN.CNP * Telephone Encounter - Florina Moore LPN - 09/23/2022 1:00 PM EST Patient returned call and went over results, notes from June Pineda ABATEMENT WORKER, patient said she was ill recently with URI, no fever, no steroids, no UTI symptoms. * Telephone Encounter - Christiana Chin Ma - 09/23/2022 12:45 PM EST Left message for return call * Telephone Encounter - June Pineda APRN.CNP - 09/23/2022 7:48 AM EST Please let patient know lab work was all within acceptable ranges, but white blood cells were slightly elevated. Has she been ill recently or had any steroids? Any fever? Skin infections? Difficulty or painful urination? Thank you June Pineda APRN.CNP documented in this encounterWood [facility]11-25-2022 Instructions* Patient Instructions* Salud Scruggs APRN.CNP - 09/16/2022 4:10 PM [...] active pills and only 4 placebo pills. Theseare formulated to give you a physical damage appraiser period. Unless otherwise instructed, you should start your pills the Monday following your first day of bleeding with your next period (if your period starts on a Monday, you should start pills the same day) Read your information packet that comes with the pills. Pill Benefits The pill is the most popular method of reversible control being used today. Millions of womenrely on oral contraceptives as their control method. It is important to have an examination by your physician to determine if the pill is safe for you. There are several advantages associated with the pill: it is 97-98% effective when used correctly; may improve acne; periods are more regularand less painful; there is less iron deficiency anemia in pill users. buttermaker use is associated with a decreased incidence of ovarian and uterine cancer. There is also no evidence that the pill increases the incidence of any cancer. How Oral Contraceptives Work Oral contraceptives come in two varieties. One is the combination pill which contains both estrogenand progesterone. Combination pills are considered 98-99% effective [...] effective than the combination pill in preventing preg alessia. It is VERY important to take the [...] given. Certain medical conditions may make the pillinappropriate for you, therefore it is very important to be honest and as complete as possible withthe information you share with your doctor. The [...] and mild fluid retention. There is no buttermaker weight gain with the use of the [...] see if there is any physical cause andpossibly change to another control pill. Problems: Missed [...] pill for the rest of the month. Oryou can stop the pill and start a [...] such as phenytoin, carbamazepine, phenobarbital, topiramate and somemedications for HIV. Let your doctor know if you start taking any of these medications while on thepill. Symptoms to Notify Your Doctor with Immediately: [...] for necessary health information. [facility] History of Present illness Narrative* Salud Scruggs APRN.CNP - 09/16/2022 3:09 PM EST Building Surveyor offered:Patient sana Martinez is a 37 year [...] OB History No obstetric history on file. Proj Engineer History LMP: 08/16/2021 (Approximate), Having periods Age at Menarche: Age at First : Age at Menopause: Proj Engineer History Comments: Sexual Activity: Yes; Male Contraception: [...] external genitalia normal, normal Bartholin's glands, urethra, [place]'s glands, no vulvar lesions, no cervical lesions, [...] year or sooner as needed Salud Scruggs APRN.ADJUSTER AND INSPECTOR documented [facility] Miscellaneous Notes* Telephone Encounter - Shannan Wellington LPN - 09/16/2022 8:14 AM EST Spoke to patient and scheduled. * Telephone Encounter - Bertha Barretouirre - 09/14/2022 4:24 PM EST Consult to Behavior health, please assist and advice. Thank you, Bertha Sultana PSS documented in this encounterWood [facility]11-[facility] History of Present illness Narrative* ADRIANA Perez - 09/14/2022 4:23 PM EST BEHAVIORAL HEALTH SOCIAL WORK QUICK NOTE Provider Action/FYI Chart review completed Patient needing appointment scheduled with Meredith Morrow CNP. Patient identified for [facility] from: PCP Reason for referral: Resources Behavioral Health Resources: Psychiatry med management [facility] encounter type: Chart Review Attempts to Outreach: 1 attempt Referral made: Psychiatry - Internal Final Disposition: Resources given Patient Discharged?: Yes Patient reported that caregiver was able to meet their needs today?: N/A Pt identified by name and . Provider interested in patient seeing [facility], specifically Meredith Morrow CNP. SW routing chart to VIKI, Shannan Wellington who can assist with patient scheduling. No needs further from this SW at this time. ADRIANA Perez, ACM-SW documented in this encounterWood [facility]11-[facility] History of Present illness Narrative* Zheng Sharif MD - 09/14/2022 3:54 PM EST Reason for Visit Patient presents with: Follow [...] clear so we will send her to [facility] , [facility], she may benefit from Seeing Meredith. No [...] F) Resp 14 Ht 162.6 cm (5' 4) Wt 98 kg (216 lb) LMP 08/16/2021 [...] diet of 1000 mg/day for under 50, 1200- 1500 mg/day for 50+ - LIPID PANEL BASIC [...] ADULT Zheng Sharif MD documented in this encounterWood [facility]11-17-2022 NoteHNO ID: [id number] Author: Almita Lowery APRN.ADJUSTER AND INSPECTOR Service: ? 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 [...] 6 Pain Location Back-Lower Back-Lower Description Aching Stiffness;Shooting;Sharp;Dull;Aching;Radiating Duration Amount of Time 2 - Duration Units Years Years Frequency Continuous Continuous Intervention/Comfort measure Medication Reposition;Relaxation;Positioning Current Pain Medications: Opioids: NSAIDS: Anti-depressants: Anti-convulsants: [...] activity was identified. 09/08/2022 by Almita Lowery APRN.ADJUSTER AND INSPECTOR Risk Assessment: STORMY-7: STORMY - 7 SCORES [...] Abuse: 0 - No Psychological Disease: Yes ADD/ADHD/OCD/Bipolar/Schizophrenia: 2 - Yes Depression: No Risk Total: [...] Cardiovascular: Appears well per (more content not included)...[facility]11-17-2022 Miscellaneous Notes* Telephone Encounter - Gwen Ly - 09/08/2022 11:18 AM EST Sent internal referral Confirmation#: [id number] documented in this encounterWood [facility] Hospital11-17-2022 NoteHNO ID: [id number] Author: Lurdes Mathias MA Service: ? Author Type: Dedicated Owner Operator Type: Progress Notes Filed: 09/08/2022 12:49 PM [...] and suicidal ideas. The patient is not nervous/anxious.[facility]11-17-2022 Instructions* Patient Instructions* Almita Lowery APRN.ADJUSTER AND INSPECTOR - 09/08/2022 9:37 AM EST Activity as tolerated Use Ice and/or heat as tolerated as needed documented in this encounterWood County Hospital11-17-2022 History of Present illness Narrative* Almita Lowery APRN.JACQUELYN - 09/08/2022 9:18 AM EST [facility] Today's Date: 09/08/2022 Last Visit: N/A Name: Michelle Henderson : 1985 Purpose: New Patient Consultation Chief complaint: Low Back Pain Interval History: N/A Initial HPI: (Obtained on 09/08/2022) Michelle Henderson is a 37 year old year- old female; who presents having been referred by [...] had pain since this time. Reports she hasfrequent leg numbness and body shaking. She does not follow neurology. 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 [...] 6 Pain Location Back-Lower Back-Lower Description Aching Stiffness;Shooting;Sharp;Dull;Aching;Radiating Duration Amount of Time 2 - Duration Units Years Years Frequency Continuous Continuous Intervention/Comfort measure Medication Reposition;Relaxation;Positioning Current Pain Medications: Opioids: NSAIDS: Anti-depressants: Anti-convulsants: [...] All prescriptions have been APPROPRIATELY filled. No suspiciousactivity was identified. 09/08/2022 by Almita Lowery APRN.ADJUSTER AND INSPECTOR Risk Assessment: STORMY-7: STORMY - 7 SCORES [...] Abuse: 0 - No Psychological Disease: Yes ADD/ADHD/OCD/Bipolar/Schizophrenia: 2 - Yes Depression: No Risk Total: [...] with significant past medical history for depression, whopresents with complaint(s) of chronic low back pain [...] this caused her to feel drowsy. Michelle Henderson would benefit from the following to decrease pain, improve function and/or workparticipation, and improve quality of life: Medications: Refill: [...] 09/08/2022 Completed and reviewed, low risk Functional Cheondoism: Physical Therapy (Land-based) Additional Studies: EMG BL [...] decision making from today's date. Almita Lowery APRN.ADJUSTER AND INSPECTOR Pain Management [facility] * Lurdes Mathias MA - 09/08/2022 9:10 AM EST Review of Systems Constitutional: Negative for activity [...] patient is not nervous/anxious. documented in this encounterWood County Hospital09-20-2022 History of Present illness Narrative* Daniella Duran RT(R) - 07/12/2022 4:30 PM EDT Radiology Service Progress Note PATIENT NAME: Michelle Henderson DATE OF SERVICE: July 12, 2022 TIME: 4:46 PM PATIENT IDENTITY VERIFICATION COMPLETED USING TWO (2) IDENTIFIERS: Name and Date of confirmedby patient verbally. FALL SCREENING: Has the patient [...] 12, 2022 4:46 PM documented in this encounterWood County Hospital09-20-2022 History of Present illness Narrative* Zheng Sharif MD - 07/12/2022 4:07 PM EDT Reason for Visit Patient presents with: Back [...] it just made her tired and did nothelp the pain so she did not take [...] F) Resp 12 Ht 162.6 cm (5' 4) Wt 96.2 kg (212 lb) LMP 08/16/2021 [...] Z68.36 Zheng Sharif MD documented in this encounterWood [facility] Hospital06-13-2022 Miscellaneous Notes* Telephone Encounter - Diane Kay MA - 04/04/2022 9:13 AM EDT NOV none MARILOU 01/05/22 Patient electronically sent [...] review. Diane Kay MA documented in this encounterWood County HospitalConsult note Author Guy Pereira [facility] Note Date/Time April 24, 2025 12:43 pm [facility] Medical Records Department [address] [place] [id number] Anesthesia Postop Eval I 04/24/25 1154 MR#: [id number] Acct: [id number] Name: MICEHLLE HENDERSON Rep #:[id number] : 1985 39 From: Guy CONNER PCP: Dr. Zheng Sharif MD Status:REG S DC Y Race: C Location: [place] [address] Anesthesia: Postop Eval I Current Vital Signs Temperature: 97 F Pulse Rate: 65 Blood Pressure: 116/65 Respiratory Rate: 14 Pulse Ox: 100 Assessment Airway patent: Yes Spontaneous unlabored respirations: Yes nausea: No Vomiting: No Anesthesia Complication: No Fluid Hydration Crystalloid volume administer (ml): 1,000 Total IV fluid infused: 1,000 Progress Note Anesthesia document: Postop Eval 1 completed: Yes 04/24/25 1154 <Electronically signed by Guy Pereira CRNA> Date _ Guy Pereira CRNA Cosigner Signature: Date CC: ~ Signed [facility] Work Phone: Discharge summary Author Linda Sloan [facility] Note Date/Time April 24, 2025 11:43 am [facility] Medical Records Department [address] [place] [address] Instructions for Home/Discharge Instructions 04/24/25 1142 MR#: [id number] Acct: [id number] Name: MICHELLE HENDERSON Rep #:[id number] : 1985 39 From: Linda Sloan DO PCP: Dr. Zheng Sharif MD Status:REG S DC Discharge Instructions Diet Discharge Diet: No restrictions DC O2, CPAP, BIPAP needs Home O2 Discharge instructions: No Dressing / Incision Discharge Activity: May Not Drive (for 24 hours after surgery) and May Not Shower (for 24 hours after surgery) May resume sexual activity in: 1 week (no tampons, intercourse, or soaking in water) Weight Bearing Status: Weight bearing as tolerated Lifting Restrictions: none Dressing / Incision Call your doctor if you observe: Fever of 101 or Higher, Using more than 1 pad per hour, Shortness of breath, Dizziness, Chest pain, Increased palpitations (irregular heartbeat), Calf discomfort and Uncontrolled pain Follow Up Care Please Follow Up With: Linda Sloan DO When: 1-2 weeks post op Test Results: Test results from this visit will be discussed in further detail at your follow- up appointment, if applicable. Discharge Plan Admission Primary Reason for Your Visit: surgery Attending Provider: Linda Sloan Primary Care Provider: Zheng Sharif Instructions Patient Instructions: Dilation and Curettage Print Language: Bulgarian Discharge Orders/Prescriptions Prescriptions: No Action PNV cmb#[id number] fumarate-FA [] 28 mg iron- 800 mcg tablet 1 tab PO DAILY Referrals / Follow Up: Zheng Sharif MD [Primary Care Provider] - Disposition Disposition (needs filled in before D/C Order can be placed): Home, Self Care 04/24/25 1143<Electronically signed by Linda Sloan DO>Linda Sloan DO CC: Dr. Zheng Sharif MD ~ Signed [facility] Work Phone: Evaluation + Plan note No data available for this section [facility] Evaluation note* Diagnosis Sciatica, unspecified laterality Sleep disturbance Sleep disturbance, unspecified Anxiety and depression Dysthymic disorder documented in this encounter [facility] note* Diagnosis Sciatica, unspecified laterality Sleep disturbance Sleep disturbance, unspecified documented in this encounter [facility] note* Diagnosis Chronic bilateral low back pain with bilateral sciatica- Primary Class 2 severe obesity with serious comorbidity and body mass index (BMI) of 36.0 to 36.9 in adult, unspecified obesity type (HCC) documented in this encounter [facility]* Diagnosis Chronic bilateral low back pain with bilateral sciatica- Primary Other disturbances of skin sensation Neck pain Cervicalgia [facility]* Diagnosis Annual physical exam- Primary Routine general medical examination at a health care facility Encounter for gynecological examination without abnormal finding Routine gynecological examination Special screening examination for viral disease Special screening examination for unspecified viral disease Excessive weight gain Abnormal weight gain Mood disorder (HCC) Unspecified episodic mood disorder documented in this encounter [facility] note* Diagnosis Encounter for gynecological examination (general) (routine) without abnormal findings- Primary General counseling and advice for contraceptive management Other general counseling and advice for contraceptive management Screening for cervical cancer Screening for malignant neoplasm of the cervix Encounter for screening for human papillomavirus (HPV) Special screening examination for human papillomavirus (HPV) documented in this encounter [facility] noteNo assessment information availableWLancaster [facility] Work Phone: Evaluation note* Diagnosis Missed menses- Primary Absence of menstruation Fatigue, unspecified type Nausea Nausea alone documented in this encounter [facility] note* Diagnosis Annual physical exam- Primary Routine general medical examination at a health care facility Mass of right breast, unspecified quadrant [facility]* Diagnosis Onset Date Resolution Status Hepatomegaly chronic Nausea [facility] Work Phone: Evaluation note* Diagnosis Onset Date Resolution Status Hepatomegaly chronic Nausea chronic Eosinophilic esophagitis acu te Hiatal hernia acute Alternating constipation and diarrhea chronic Hepatomegaly chronic Nausea [facility] Work Phone: evaluation note* Diagnosis Onset Date Resolution Status Eosinophilic esophagitis acu te Hiatal hernia acute Alternating constipation and diarrhea chronic Hepatomegaly chronic Nausea chronic [facility] Work Phone: evaluation note* Diagnosis General counseling and advice for contraceptive management Other general counseling and advice for contraceptive management documented in this encounter [facility] note* Diagnosis Onset Date Resolution Status Alternating constipation and diarrhea chronic Eosinophilic esophagitis chr onic Hepatomegaly chronic Hiatal hernia chronic Nausea chronic [facility] Work Phone: Evaluation note* Diagnosis Mass of right breast, unspecified quadrant documented in this encounter [facility] note* Diagnosis Dizziness- Primary Dizziness and giddiness Missed period Irregular menstrual cycle documented in this encounter [facility] note* Diagnosis with uncertain dates in first trimester documented in this encounter [facility] note* Diagnosis Right tubal without intrauterine - Primary Right tubal , unspecified whether intrauterine present documented in this encounter [facility] note* Diagnosis Wellness examination- Primary Encounter for immunization Need for other specified prophylactic vaccination against single bacterial disease Immunity status testing Antibody response examination documented in this encounter [facility] note* Diagnosis Hx of ectopic - Primary Personal history of other genital system and obstetric disorders documented in this encounter [facility] note* Diagnosis Hx of ectopic - Primary Personal history of other genital system and obstetric disorders Right tubal without intrauterine [facility]* Diagnosis Exudative tonsillitis- Primary [facility]* Diagnosis Pelvic pain- Primary Other fatigue Female infertility Female infertility of unspecified origin documented in this encounter [facility] note* Diagnosis Pelvic pain- Primary documented in this encounter [facility] note* Diagnosis Encounter for screening mammogram for breast cancer documented in this encounter [facility] note* Diagnosis Chronic bilateral low back pain with bilateral sciatica documented in this encounter [facility] note* Diagnosis Dysmenorrhea- Primary Nicotine abuse Tobacco use disorder Fatty liver Other chronic nonalcoholic liver disease documented in this encounter [facility] note* Diagnosis Vaginal bleeding affecting early (HCC)- Primary with uncertain dates in first trimester (HCC) [facility] Diagnosis 8 weeks gestation of (HCC)- Primary state, incidental SAB (spontaneous ) (HCC) Unspecified spontaneous without mention of complication [facility] encounter [facility]* Diagnosis Post-operative state- Primary Other postprocedural status documented [facility] this encounter [facility] Author Adilson Cobb [facility] January 30, 2023 7:06am Note Date/Time January 30, 2023 7:0 6am [facility] Medical Records Department [address] [place] [address] History & Physical Exam 01/30/23 0705 MR#: [id number] Acct: [id number] Name: MICHELLE HENDERSON Rep #:[id number] : 1985 37 From: Adilson Cobb DO PCP: Dr. Zheng Sharif MD Status:[facility] [place] Location: [place] [address] History and Physical Date of Admission: 01/30/23 7 F who presents to the office today for Initial consult. [facility] ED presentation 12.. with epigastric and lower abdominal pain for a month with postprandial nausea without weight loss. Similar episode 2 years prior with associated weight loss. She was discharged without acute finding with?Zofran and OCT acid leather stamper. ?Biochemical workup?CBC, CMP, lipase, urine, without pertinent abnormalities. ?CT abd/pel?s/p cholecystectomy; mild hepatomegaly without mass; nodular density of right lung breast. OV 2.7.23 with upper GI symptoms as noted above, has required Zofran and acid leather stamper less frequently. Additionally, has current difficulty with varying stools: historically has loose/soft stools that has recently become more constipation with difficulty with initiation and harder stools. ROS Const Constitutional: No anorexia, fatigue, fever(s), weight change or sleep problems Eyes Eyes: No change in vision ENT ENT: No abnormal hearing, difficulty swallowing, mouth lesions, tongue swelling or throat swelling Resp Respiratory: No cough or shortness of breath Cardio Cardiology: No chest pain at rest, chest pain with exertion, shortness of breathor dyspnea on exertion Gastro GI: No difficulty swallowing Genitourinary-Female: No difficulty urinating or burning urination Musc Musculoskeletal: No joint pain, joint swelling, muscle weakness or decreased muscle mass Skin Skin: No hair loss in leg, yellowing of the eye, itchy eyes, rash, skin ulcer orskin swelling Neuro Neurology: No abnormal hearing, abnormal movements, confusion, unsteady gait/balance or memory loss Psych Psychiatric: No anxiety, No confusion and No memory loss Endo Endocrine: No fatigue or weight change Aller/Imm Allergy/Immunologic: No itchy eyes, throat swelling or tongue swelling Tiago/Lymp Hematologic/Lymphatic: No easy bleeding, easy bruising or enlarged lymph nodes Exam Const General: cooperative and comfortable Nutritional Appearance: average body habitus and well nourished HENMT Head: normal to inspection Ears: hearing grossly normal bilaterally Nose: external nose normal Face and sinus: normal facial exam Mouth: oral mucosae normal Throat: posterior oropharynx normal Eyes General: appearance normal, both eyes and all related structures Neck Neck: normal visual inspection Chest Chest palpation & inspection: normal inspection of the chest and normal palpation of entire chest wall Resp Effort & Inspection: normal respiratory effort Auscultation: Bilateral: Clear to Auscultation Cardio Palpation: normal PMI Rate: regular rate Rhythm: regular rhythm GI Inspection: normal to inspection Auscultation: normal bowel sounds Percussion: normal to percussion Palpation: no hepatosplenomegaly Skin General: no rashes or lesions noted Neuro General: patient alert Extrem General: normal to inspection Psych Affect: normal affect Quality Reporting Tobacco Screening ([facility] 138) Smoking Status: Current every day smoker Assessment and Plan Assessment and Plan (1) Nausea: ?Status:?Chronic ?Plan: Differential diagnosis nausea does include gastritis, atypical GERD, celiac disease, motility disorder such as gastroparesis.? She should undergo an upper endoscopy to evaluate upper GI tract for diseases such as H. pylori gastritis, peptic ulcer disease and atypical Swanson's esophagus.? She was explained alternatives, risk, benefits including missed any bleeding, infection, sepsis, perforation, need for additional.? She was an ASA 1.? We will also do a biochemical work-up to look for inflammation.? Pending biochemical work-up, further recommendations to follow (2) Hepatomegaly: ?Status:?Chronic ?Plan: The differential diagnosis enlarged fatty liver disease and less likely infiltrative disease such as amyloidosis, sarcoidosis, hemochromatosis.? We willsee what the biochemical work-up shows and we will get a FibroScan to see if there is any scarring, fibrosis and less likely necrosis in the liver.? Further recommendations to follow after she has biochemical and imaging studies. ? ? ? Orders: Orders HIV - [facility] Today R11.0 - Nausea, R16.0 - Hepatomegaly, not elsewhere classified ? Comprehensive Metabolic Profil Today R11.0 - Nausea, R16.0 - Hepatomegaly, not elsewhere classified ? CRP Today R11.0 - Nausea, R16.0 - Hepatomegaly, not elsewhere classified ? Ferritin Today R11.0 - Nausea, R16.0 - Hepatomegaly, not elsewhere classified ? LDH Today R11.0 - Nausea, R16.0 - Hepatomegaly, not elsewhere classified ? Hemoglobin A1c Today R11.0 - Nausea, R16.0 - Hepatomegaly, not elsewhere classified ? Prothrombin Time w/INR Today R11.0 - Nausea, R16.0 - Hepatomegaly, not elsewhereclassified ? CBC W/Diff, Automated Today R11.0 - Nausea, R16.0 - Hepatomegaly, not elsewhere classified ? Erythrocyte Sed Rate Today R11.0 - Nausea, R16.0 - Hepatomegaly, not elsewhere classified ? Anti-Mitochondrial AB Today R11.0 - Nausea, R16.0 - Hepatomegaly, not elsewhere classified ? PHILIPPE Comprehensive Panel Today R11.0 - Nausea, R16.0 - Hepatomegaly, not elsewhere classified ? Hepatitis Panel Acute Today R11.0 - Nausea, R16.0 - Hepatomegaly, not elsewhere classified ? Angiotensin Convert Enzyme Today R11.0 - Nausea, R16.0 - Hepatomegaly, not elsewhere classified ? AFP, Tumor Marker Today R11.0 - Nausea, R16.0 - Hepatomegaly, not elsewhere classified ? ANCA Today R11.0 - Nausea, R16.0 - Hepatomegaly, not elsewhere classified ? Anti-Smooth Muscle ABS Today R11.0 - Nausea, R16.0 - Hepatomegaly, not elsewhereclassified ? Ceruloplasmin Today R11.0 - Nausea, R16.0 - Hepatomegaly, not elsewhere classified ? Copper, Serum or Plasma Today R11.0 - Nausea, R16.0 - Hepatomegaly, not elsewhere classified ? Haptoglobin Today R11.0 - Nausea, R16.0 - Hepatomegaly, not elsewhere classified? Ammonia Today R11.0 - Nausea, R16.0 - Hepatomegaly, not elsewhere classified ? Abdomen Limited Today R11.0 - Nausea, R16.0 - Hepatomegaly, not elsewhere classified ? Elastography Parenchyma/Organ Today R11.0 - Nausea, R16.0 - Hepatomegaly, not elsewhere classified ? Gastric Emptying Study Today R11.0 - Nausea ? I have examined the patient and the H&P has been reviewed. There are no clinicalchanges since date of exam. 01/30/23705 <Electronically signed by Adilson Cobb DO> Cosigner Signature (if applicable): CC: Dr. Zheng Sharif MD; Adilson Cobb, ~ Signed [facility] Work Phone: Hospital Discharge instructions No data available for this section [facility] Hospital Discharge instructions Additional Instructions Follow-up with your primary care physician as soon as possible. Start a clear liquid diet and advance as tolerated. Avoid spicy foods. You may want to start [id number] Pepcid or Prilosec daily. Additionally, you had an abnormal CT scan finding. There is questionable density possibly in the right breast. Outpatient nonemergent ultrasound can be used for follow-up as ordered by your primary care physician. Mention this during her scheduled appointment.[facility] Work Phone: Hospital Discharge instructions Additional Instructions Your CT scan showed chronic findings today but no obvious signs of infection or blockage. Please follow-up with your family doctor and/or books salesperson for further testing if symptoms persist and return to the ER should you have any further concernsWooFirelands [facility] Work Phone: Hospital Discharge instructions Additional Instructions If you develop a rash, sores in your mouth or any other concerns please return to the emergency room. Please continue to follow-up with your counselor and psychiatrist as we discussed.[facility] Work Phone: Hospital Discharge instructions Additional Instructions Follow-up with your to upcoming OB appointments.[facility] Work Phone: Reason for referral (narrative)* Diagnostic Procedure Only (Routine) - Closed Specialty Diagnoses / Procedures Referred By Contac t Referred To Contact XR IMAGING Diagnoses Chronic bilateral low back pain with bilateral sciatica Procedures XR LUMBAR GENERAL 3V AP/LAT/L5-S1 RADEX SPINE LUMBOSACRAL 2/3 VIEWS Zheng Sharif MD [address] [place] [address] Xr Imaging Referral ID Status Reason Start Date Expiration Date V isits Requested Visits Authorized [id number] Closed Auto-Generate d Referral 07/12/2022 08/11/2023 1 1 * Consult, Test, Treat (Routine) - Authorized Specialty Diagnoses / Procedures Referred By Contac t Referred To Contact Pain Management Diagnoses Chronic bilateral low back pain with bilateral sciatica Procedures CONSULT TO PAIN MGT OFFICE/OUTPATIENT [facility] MDM 60-74 MINUTES Zheng Sharif MD [address] [place] [address] Referral ID Status Reason Start Date Expiration Date Visits Requested Visits Authorized [id number] Authorized PCP Requested Referral 07/12/2022 10/10/[address] [facility] for referral (narrative)* - Pending Review Specialty Diagnoses / Procedures Referred By Contac t Referred To Contact Physical Therapy Diagnoses Chronic bilateral low back pain with bilateral sciatica Procedures CONSULT TO PHYSICAL THERAPY Almita Lowery, EVANGELINA.ADJUSTER AND INSPECTOR [address] [place] [address] Referral ID Status Reason Start Date Expiration Date V isits Requested Visits Authorized [id number] Pending Review 09/08/2022 12/07/2022 1 1 * Diagnostic Procedure Only (Routine) - Pending Review Specialty Diagnoses / Procedures Referred By Contac t Referred To Contact XR IMAGING Diagnoses Neck pain Procedures XR CERV OTHER 6V AP/LAT/FLX/EXT/OBL RADEX SPINE CERVICAL 6 OR MORE VIEWS Almita Lowery APRN.ADJUSTER AND INSPECTOR [address] [place] [address] Xr Imaging Referral ID Status Reason Start Date Expiration Date Visits Requested Visits Authorized [id number] Pending Review Auto-Generat ed Referral 10/08/2023 1 1 Electronically signed by Almita Lowery CUSTOMER ENGAGEMENT MANAGER.ADJUSTER AND INSPECTOR at 09/08/2022 9:[address] [facility] for referral (narrative)* Diagnostic Procedure Only (Routine) - Authorized Specialty Diagnoses / Procedures Referred By Mary t Referred To Contact BR IMAGING Diagnoses Mass of right breast, unspecified quadrant Procedures US BREAST LTD RT US BREAST UNI REAL TIME WITH IMAGE LIMITED Zheng Sharif MD [address] [place] [address] [facility] [id number] [place] [address] Referral ID Status Reason Start Date Expiration Date Visits Requested Visits Authorized [id number] Authorized Auto-Generat ed Referral 12/09/2022 01/08/2024 1 1 * Diagnostic Procedure Only (Routine) - Authorized Specialty Diagnoses / Procedures Referred By Mary grace Referred To Contact BR IMAGING Diagnoses Mass of right breast, unspecified quadrant Procedures PRIYANKA DIAGNOSTIC BILAT DIAGNOSTIC MAMMOGRAPHY COMPUTER-AIDED DETCJ BI Zheng Sharif MD [address] [place] [address] [facility] [address] [place] [address] Referral ID Status Reason Start Date Expiration Date Visits Requested Visits Authorized [id number] Authorized Auto-Generat ed Referral 12/09/2022 01/08/[address] [facility] for referral (narrative)* Diagnostic Procedure Only (Routine) - Authorized Specialty Diagnoses / Procedures Referred By Mary grace Referred To Contact BR IMAGING Diagnoses Encounter for screening mammogram for breast cancer Procedures PRIYANKA SCREENING W BERTA SCREENING DIGITAL BREAST TOMOSYNTHESIS BI SCREENING MAMMOGRAPHY BI 2-VIEW BREAST INC CAD Zheng Sharif MD [facility] [place] [address] [facility] [address] [place] [address] Referral ID Status Reason Start Date Expiration Date Visits Requested Visits Authorized [id number] Authorized Auto-Generat ed Referral 06/05/2024 07/05/[address] [facility] for referral (narrative)* Diagnostic Procedure Only (Routine) - Closed Specialty Diagnoses / Procedures Referred By Contac t Referred To Contact XR IMAGING Diagnoses Chronic bilateral low back pain with bilateral sciatica Procedures XR LUMBAR GENERAL 3V AP/LAT/L5-S1 RADEX SPINE LUMBOSACRAL 2/3 VIEWS Zheng Sharif MD [address] [place] [id number] [place] [address] Referral ID Status Reason Start Date Expiration Date V isits Requested Visits Authorized [id number] Closed Auto-Generate d Referral 07/12/2022 08/11/[address] [facility] for referral (narrative)No reason for referral information availableWLancaster Municipal Hospital Work Phone: Reason for visit Narrative* Diagnostic Procedure Only (Routine) - Closed Specialty Diagnoses / Procedures Referred By Contac t Referred To Contact BR IMAGING Diagnoses Mass of right breast, unspecified quadrant Procedures PRIYANKA DIAGNOSTIC BILAT DIAGNOSTIC MAMMOGRAPHY COMPUTER-AIDED DETCJ BI Zheng Sharif MD [address] [place] [address] [facility] [address] [place] [address] Referral ID Status Reason Start Date Expiration Date V isits Requested Visits Authorized [id number] Closed Auto-Generate d Referral 12/09/2022 01/08/[address] [facility] for visit Narrative* Diagnostic Procedure Only (Routine) - Closed Specialty Diagnoses / Procedures Referred By Contac t Referred To Contact [facility] Diagnoses Pelvic pain Procedures PELVIC US WHI US PELVIC NONOBSTETRIC REAL-TIME IMAGE COMPLETE Divine Cardona MD [address] [place] [address] [facility] [address] [place] [address] Referral ID Status Reason Start Date Expiration Date V isits Requested Visits Authorized [id number] Closed Auto-Generate d Referral 04/02/2024 04/02/[address] [facility] for visit Narrative* Diagnostic Procedure Only (Routine) - Closed Specialty Diagnoses / Procedures Referred By Contac t Referred To Contact BR IMAGING Diagnoses Encounter for screening mammogram for breast cancer Procedures PRIYANKA SCREENING W BERTA SCREENING DIGITAL BREAST TOMOSYNTHESIS BI SCREENING MAMMOGRAPHY BI 2-VIEW BREAST INC CAD Zheng Sharif MD [address] [place] [address] [facility] [address] [place] [address] Referral ID Status Reason Start Date Expiration Date V isits Requested Visits Authorized [id number] Closed Auto-Generate d Referral 06/05/2024 07/05/[address] [facility] for visit Narrative* Diagnostic Procedure Only (Routine) - Closed Specialty Diagnoses / Procedures Referred By Contac t Referred To Contact XR IMAGING Diagnoses Chronic bilateral low back pain with bilateral sciatica Procedures XR LUMBAR GENERAL 3V AP/LAT/L5-S1 RADEX SPINE LUMBOSACRAL 2/3 VIEWS Zheng Sharif MD [address] [place] [address] [place] [address] Referral ID Status Reason Start Date Expiration Date V isits Requested Visits Authorized [id number] Closed Auto-Generate d Referral 07/12/2022 08/11/2023 1 1 [facility] Reason for Referral Specialty Diagnoses / Procedures Referred By Contac t Referred To Contact Diagnoses Female infertility Procedures CONSULT TO INFERTILITY CLINIC OFFICE/OUTPATIENT [facility] 60 MINUTES Divine Cardona MD [address] [place] [address] Referral ID Status Reason Start Date Expiration Date Visits Requested Visits Authorized [id number] Authorized PCP Requested Referral Auto-Generate d Referral 04/02/2024 04/02/2025 1 1 Specialty Diagnoses / Procedures Referred By Contac t Referred To Contact [facility] Diagnoses Pelvic pain Procedures PELVIC US WHI US PELVIC NONOBSTETRIC REAL-TIME IMAGE COMPLETE Divine Cardona MD [address] [place] [address] [facility] [address] [place] [address] Referral ID Status Reason Start Date Expiration Date Visits Requested Visits Authorized [id number] Authorized Auto-Generat ed Referral 04/02/2024 04/02/2025 1 1 Specialty Diagnoses / Procedures Referred By Contac t Referred To Contact Gynecology Diagnoses Encounter for gynecological examination without abnormal finding Procedures CONSULT TO GYNECOLOGY OFFICE/OUTPATIENT [facility] 60-74 MINUTES Zheng Sharif MD [address] [place] [address] Referral ID Status Reason Start Date Expiration Date Visits Requested Visits Authorized [id number] Authorized PCP Requested Referral Auto-Generate d Referral 2 09/14/2023 1 1 Summary Purpose Family History No Family History Records Found Relationship Condition Age at Onset Recorded Date/T lisandro sister Hemorrhagic disorder Unknown Malignant neoplasm of cervix Unknown Advance Directives No Advanced Directives Records Found Advance Directive Response Recorded Date/ Time Living Will No October 20, 2 022 9:17pm Power of Hairspring Cutter No October 20, 2022 9:17pm Advance Directive Response Recorded Date/ Time Living Will No December 28, 2022 11:35pm Power of Hairspring Cutter No December 28 11:35pm Advance Directive Response Recorded Date/ Time Living Will No January 24, 2023 12:22pm Power of Hairspring Cutter No January 24 12:22pm Advance Directive Response Recorded Date/ Time Living Will No May 24, 2023 1:32pm Power of Hairspring Cutter No May 24 1:32pm Advance Directive Response Recorded Date/ Time Living Will No June 16 10:13pm Power of Hairspring Cutter No June 16, 2 023 10:13pm Advance Directive Response Recorded Date/ Time Living Will No August 03 11:46am Power of Hairspring Cutter No August 03, 2023 11:46am Advance Directive Response Recorded Date/ Time Living Will No November 12 11:31pm Power of Hairspring Cutter No November 12, 2023 11:31pm Advance Directive Response Recorded Date/ Time Living Will No November 13 12:31am Do you have a Healthcare Power of Hairspring Cutter? No November 13, 2023 12:31am Do you have a Healthcare Power of Hairspring Cutter? No April 23, 2025 8:56am Chief Complaint and Reason for Visit Chief Complaint ABDOMINAL PAIN Chief Complaint ABDOMINAL PAIN ER FU HEPATOMEGALY,NAUSEA NAUSEA Reason for Visit Hepatomegaly Nausea Chief Complaint ABDOMINAL PAIN ER FU HEPATOMEGALY,NAUSEA NAUSEA ABD PAIN Reason for Visit Hepatomegaly Nausea Chief Complaint ER FU HEPATOMEGALY,NAUSEA NAUSEA ABD PAIN 2 WK FU INT LABS Reason for Visit Hepatomegaly Nausea Eosinophilic esophagitis Hiatal hernia Alternating constipation and diarrhea Hepatomegaly Nausea Chief Complaint 2 WK FU INT LABS NAUSEA MENTAL HEALTH Reason for Visit Eosinophilic esophag itis Hiatal hernia Alternating constipation and diarrhea Hepatomegaly Nausea Chief Complaint 2 WK FU INT LABS NAUSEA MENTAL HEALTH ABD PAIN Reason for Visit Eosinophilic esophag itis Hiatal hernia Alternating constipation and diarrhea Hepatomegaly Nausea Chief Complaint MENTAL HEALTH ABD PAIN 5 MO FU Reason for Visit Alternating constipa tion and diarrhea Eosinophilic esophagitis Hepatomegaly Hiatal hernia Nausea Chief Complaint VAG BLEED PREG Chief Complaint Admit Date 6 MO - LABS 1 WK PRIOR February 03, 2025 10:35am 6 MO - LABS 1 WK PRIOR February 10, 2025 1:13pm Reason for Visit Admit Date Elevated factor VIII level February 10, 2 025 1:13pm Missed April 24, 2025 8:33a m Additional Source Comments Source Comments (unrecognize d section and content) In the event this informatio n is protected by the Federal Confidentiality of Alcohol and Drug Abuse Patient Records regulations: The Federal rules restrict any use of the information to criminally investigate or prosecute any alcohol or drug abuse patient.[facility] the event this information is protected by the Federal Confidentiality of Alcohol and Drug Abuse Patient Records regulations: The Federal rules restrict any use of the information to criminally investigate or prosecute any alcohol or drug abuse patient.[facility] the event this information is protected by the Federal Confidentiality of Alcohol and Drug Abuse Patient Records regulations: The Federal rules restrict any use of the information to criminally investigate or prosecute any alcohol or drug abuse patient.[facility] HospitalIn the event this information is protected by the Federal Confidentiality of Alcohol and Drug Abuse Patient Records regulations: The Federal rules restrict any use of the information to criminally investigate or prosecute any alcohol or drug abuse patient.[facility] HospitalIn the event this information is protected by the Federal Confidentiality of Alcohol and Drug Abuse Patient Records regulations: The Federal rules restrict any use of the information to criminally investigate or prosecute any alcohol or drug abuse patient.[facility] HospitalIn the event this information is protected by the Federal Confidentiality of Alcohol and Drug Abuse Patient Records regulations: The Federal rules restrict any use of the information to criminally investigate or prosecute any alcohol or drug abuse patient.[facility] HospitalIn the event this information is protected by the Federal Confidentiality of Alcohol and Drug Abuse Patient Records regulations: The Federal rules restrict any use of the information to criminally investigate or prosecute any alcohol or drug abuse patient.[facility] HospitalIn the event this information is protected by the Federal Confidentiality of Alcohol and Drug Abuse Patient Records regulations: The Federal rules restrict any use of the information to criminally investigate or prosecute any alcohol or drug abuse patient.[facility] HospitalIn the event this information is protected by the Federal Confidentiality of Alcohol and Drug Abuse Patient Records regulations: The Federal rules restrict any use of the information to criminally investigate or prosecute any alcohol or drug abuse patient.[facility]In the event this information is protected by the Federal Confidentiality of Alcohol and Drug Abuse Patient Records regulations: The Federal rules restrict any use of the information to criminally investigate or prosecute any alcohol or drug abuse patient.[facility]In the event this information is protected by the Federal Confidentiality of Alcohol and Drug Abuse Patient Records regulations: The Federal rules restrict any use of the information to criminally investigate or prosecute any alcohol or drug abuse patient.[facility] HospitalIn the event this information is protected by the Federal Confidentiality of Alcohol and Drug Abuse Patient Records regulations: The Federal rules restrict any use of the information to criminally investigate or prosecute any alcohol or drug abuse patient.[facility] HospitalIn the event this information is protected by the Federal Confidentiality of Alcohol and Drug Abuse Patient Records regulations: The Federal rules restrict any use of the information to criminally investigate or prosecute any alcohol or drug abuse patient.[facility] HospitalIn the event this information is protected by the Federal Confidentiality of Alcohol and Drug Abuse Patient Records regulations: The Federal rules restrict any use of the information to criminally investigate or prosecute any alcohol or drug abuse patient.[facility] HospitalIn the event this information is protected by the Federal Confidentiality of Alcohol and Drug Abuse Patient Records regulations: The Federal rules restrict any use of the information to criminally investigate or prosecute any alcohol or drug abuse patient.[facility] HospitalIn the event this information is protected by the Federal Confidentiality of Alcohol and Drug Abuse Patient Records regulations: The Federal rules restrict any use of the information to criminally investigate or prosecute any alcohol or drug abuse patient.[facility] HospitalIn the event this information is protected by the Federal Confidentiality of Alcohol and Drug Abuse Patient Records regulations: The Federal rules restrict any use of the information to criminally investigate or prosecute any alcohol or drug abuse patient.[facility] HospitalIn the event this information is protected by the Federal Confidentiality of Alcohol and Drug Abuse Patient Records regulations: The Federal rules restrict any use of the information to criminally investigate or prosecute any alcohol or drug abuse patient.[facility] HospitalIn the event this information is protected by the Federal Confidentiality of Alcohol and Drug Abuse Patient Records regulations: The Federal rules restrict any use of the information to criminally investigate or prosecute any alcohol or drug abuse patient.[facility] HospitalIn the event this information is protected by the Federal Confidentiality of Alcohol and Drug Abuse Patient Records regulations: The Federal rules restrict any use of the information to criminally investigate or prosecute any alcohol or drug abuse patient.[facility] HospitalIn the event this information is protected by the Federal Confidentiality of Alcohol and Drug Abuse Patient Records regulations: The Federal rules restrict any use of the information to criminally investigate or prosecute any alcohol or drug abuse patient.[facility] HospitalIn the event this information is protected by the Federal Confidentiality of Alcohol and Drug Abuse Patient Records regulations: The Federal rules restrict any use of the information to criminally investigate or prosecute any alcohol or drug abuse patient.[facility] HospitalIn the event this information is protected by the Federal Confidentiality of Alcohol and Drug Abuse Patient Records regulations: The Federal rules restrict any use of the information to criminally investigate or prosecute any alcohol or drug abuse patient.[facility] HospitalIn the event this information is protected by the Federal Confidentiality of Alcohol and Drug Abuse Patient Records regulations: The Federal rules restrict any use of the information to criminally investigate or prosecute any alcohol or drug abuse patient.[facility] HospitalIn the event this information is protected by the Federal Confidentiality of Alcohol and Drug Abuse Patient Records regulations: The Federal rules restrict any use of the information to criminally investigate or prosecute any alcohol or drug abuse patient.[facility] HospitalIn the event this information is protected by the Federal Confidentiality of Alcohol and Drug Abuse Patient Records regulations: The Federal rules restrict any use of the information to criminally investigate or prosecute any alcohol or drug abuse patient.[facility] HospitalIn the event this information is protected by the Federal Confidentiality of Alcohol and Drug Abuse Patient Records regulations: The Federal rules restrict any use of the information to criminally investigate or prosecute any alcohol or drug abuse patient.[facility] HospitalIn the event this information is protected by the Federal Confidentiality of Alcohol and Drug Abuse Patient Records regulations: The Federal rules restrict any use of the information to criminally investigate or prosecute any alcohol or drug abuse patient.[facility] HospitalIn the event this information is protected by the Federal Confidentiality of Alcohol and Drug Abuse Patient Records regulations: The Federal rules restrict any use of the information to criminally investigate or prosecute any alcohol or drug abuse patient.[facility] HospitalIn the event this information is protected by the Federal Confidentiality of Alcohol and Drug Abuse Patient Records regulations: The Federal rules restrict any use of the information to criminally investigate or prosecute any alcohol or drug abuse patient.[facility] HospitalIn the event this information is protected by the Federal Confidentiality of Alcohol and Drug Abuse Patient Records regulations: The Federal rules restrict any use of the information to criminally investigate or prosecute any alcohol or drug abuse patient.[facility] HospitalIn the event this information is protected by the Federal Confidentiality of Alcohol and Drug Abuse Patient Records regulations: The Federal rules restrict any use of the information to criminally investigate or prosecute any alcohol or drug abuse patient.[facility] HospitalIn the event this information is protected by the Federal Confidentiality of Alcohol and Drug Abuse Patient Records regulations: The Federal rules restrict any use of the information to criminally investigate or prosecute any alcohol or drug abuse patient.[facility] HospitalIn the event this information is protected by the Federal Confidentiality of Alcohol and Drug Abuse Patient Records regulations: The Federal rules restrict any use of the information to criminally investigate or prosecute any alcohol or drug abuse patient.[facility] HospitalIn the event this information is protected by the Federal Confidentiality of Alcohol and Drug Abuse Patient Records regulations: The Federal rules restrict any use of the information to criminally investigate or prosecute any alcohol or drug abuse patient.[facility] HospitalIn the event this information is protected by the Federal Confidentiality of Alcohol and Drug Abuse Patient Records regulations: The Federal rules restrict any use of the information to criminally investigate or prosecute any alcohol or drug abuse patient.[facility] HospitalIn the event this information is protected by the Federal Confidentiality of Alcohol and Drug Abuse Patient Records regulations: The Federal rules restrict any use of the information to criminally investigate or prosecute any alcohol or drug abuse patient.[facility] HospitalIn the event this information is protected by the Federal Confidentiality of Alcohol and Drug Abuse Patient Records regulations: The Federal rules restrict any use of the information to criminally investigate or prosecute any alcohol or drug abuse patient.[facility] HospitalIn the event this information is protected by the Federal Confidentiality of Alcohol and Drug Abuse Patient Records regulations: The Federal rules restrict any use of the information to criminally investigate or prosecute any alcohol or drug abuse patient.[facility] HospitalIn the event this information is protected by the Federal Confidentiality of Alcohol and Drug Abuse Patient Records regulations: The Federal rules restrict any use of the information to criminally investigate or prosecute any alcohol or drug abuse patient.[facility] HospitalIn the event this information is protected by the Federal Confidentiality of Alcohol and Drug Abuse Patient Records regulations: The Federal rules restrict any use of the information to criminally investigate or prosecute any alcohol or drug abuse patient.[facility] HospitalIn the event this information is protected by the Federal Confidentiality of Alcohol and Drug Abuse Patient Records regulations: The Federal rules restrict any use of the information to criminally investigate or prosecute any alcohol or drug abuse patient.[facility] HospitalIn the event this information is protected by the Federal Confidentiality of Alcohol and Drug Abuse Patient Records regulations: The Federal rules restrict any use of the information to criminally investigate or prosecute any alcohol or drug abuse patient.[facility] Care Teams (unrecognized sec tion and content) Eyewear Consultant Relationship Specialty Start Date End Date Zheng Sharif MD [address] [place] [address] PCP - General Internal Medicine 03/16/21 Eyewear Consultant Relationship Specialty Start Date End Date Zheng Sharif MD [address] [facility] [place] [address] PCP - General Internal Medicine 03/16/21 Eyewear Consultant Relationship Specialty Start Date End Date Zheng Sharif MD [address] [facility] [place] [address] PCP - General Internal Medicine 03/16/21 Eyewear Consultant Relationship Specialty Start Date End Date Zheng Sharif MD [address] [facility] [place] [address] PCP - General Internal Medicine 03/16/21 Eyewear Consultant Relationship Specialty Start Date End Date Zheng Sharif MD [address] [facility] [place] [address] PCP - General Internal Medicine 03/16/21 Eyewear Consultant Relationship Specialty Start Date End Date Zheng Sharif MD [address] [facility] [place] [address] PCP - General Internal Medicine 03/16/21 Eyewear Consultant Relationship Specialty Start Date End Date Zheng Sharif MD [address] [place] [address] PCP - General Internal Medicine 03/16/21 Eyewear Consultant Relationship Specialty Start Date End Date Zheng Sharif MD [address] [place] [address] PCP - General Internal Medicine 03/16/21 Eyewear Consultant Relationship Specialty Start Date End Date Zheng Sharif MD [address] [facility] [place] [address] PCP - General Internal Medicine 03/16/21 Eyewear Consultant Relationship Specialty Start Date End Date Zheng Sharif MD [address] [facility] [place] [address] PCP - General Internal Medicine 03/16/21 Eyewear Consultant Relationship Specialty Start Date End Date Zheng Sharif MD [address] [place] [address] PCP - General Internal Medicine 03/16/21 Eyewear Consultant Relationship Specialty Start Date End Date Zheng Sharif MD [address] [facility] [place] [address] PCP - General Internal Medicine 03/16/21 Team Status: Active Member Role Status Dates No Primary Care Physician Family Provider Active Zheng Sharif MD Primary Care Provider Active Team Status: Inactive Member Role Status Dates Zheng Sharif MD Primary Care Provider, Referring Pro vider Active Dr. Adilson Cobb DO Attending Provider Active Team Status: Inactive Member Role Status Dates Zheng Sharif MD Primary Care Provider Active Sajan Koch MD Attending Provider, Emergency Provid er Active Team Status: Active Member Role Status Dates Zheng Sharif MD Primary Care Provider Active Dr. Adilson Cobb DO Attending Provider Active Team Status: Inactive Member Role Status Mariah Sharif MD Primary Care Provider Active Dr. Adilson Cobb DO Attending Provider Active Team Status: Inactive Member Role Status Mariah Sharif MD Primary Care Provider Active Dr. Tra Bruce DO Emergency Provider Active Team Status: Active Member Role Status Caroline Primary Care Physician Family Provider Active Dr. Zheng Sharif MD Primary Care Provider Active Team Status: Inactive Member Role Status Dates Zheng MURCIA MD Primary Care Provider, Referring Provider Active Dr. Adilson Cobb DO Attending Provider Active Team Status: Active Member Role Status Dates Dr. Adilson Cobb DO Attending Provider, Other Prov ider Active Dr. Zheng Sharif MD Primary Care Provider, Referring Provider Active Team Status: Inactive Member Role Status Dates Zheng MURCIA MD Primary Care Provider Active Sajan Koch MD Attending Provider, Emergency Provid er Active Team Status: Inactive Member Role Status Mariah MURCIA MD Primary Care Provider Active Dr. Adilson Cobb DO Attending Provider Active Team Status: Inactive Member Role Status Dates Dr. Adilson Cobb DO Attending Provider Active Dr. Zheng Sharif MD Primary Care Provider, Referring Provider Active Team Status: Inactive Member Role Status Dates Zheng MURCIA MD Primary Care Provider Active Dr. Tra Bruce DO Attending Provider, Emergency Pr ovider Active Team Status: Inactive Member Role Status Dates Zheng MURCIA MD Referring Provider Active Dr. Adilson Cobb DO Attending Provider Active Dr. Zheng Sharif MD Primary Care Provider Active Team Status: Inactive Member Role Status Dates Dr. Zheng Sharif MD Primary Care Provider Active Dr. Adilson Cobb DO Attending Provider, Referring Provider Active Eyewear Consultant Relationship Specialty Start Date End Date Zheng Sharif MD [address] [facility] [address] PCP - General Internal Medicine 03/16/21 Team Status: Inactive Member Role Status Dates Dr. Zheng Sharif MD Primary Care Provider Active Dr. Katia Subramanian DO Emergency Provider Active Team Status: Inactive Member Role Status Dates Dr. Zheng Sharif MD Primary Care Provider Active Dr. Xavier Arroyo MD Emergency Provider Active Team Status: Inactive Member Role Status Dates Dr. Zheng Sharif MD Primary Care Provider Active Dr. Katia Subramanian DO Attending Provider, Emergency P rovider Active Eyewear Consultant Relationship Specialty Start Date End Date Zheng Sharif MD [address] [place] [address] PCP - General Internal Medicine 03/16/21 Team Status: Inactive Member Role Status Dates Dr. Zheng Sharif MD Primary Care Provider, Referring Provider Active Dr. Adilson Cobb DO Attending Provider Active Team Status: Active Member Role Status Dates Dr. Zheng Sharif MD Primary Care Provider, Referring Provider Active Dr. Adilson Cobb DO Attending Provider, Other Prov ider Active Team Status: Inactive Member Role Status Dates Dr. Zheng Sharif MD Primary Care Provider Active Dr. Xavier Arroyo MD Attending Provider, Emergency Pr ovider Active Eyewear Consultant Relationship Specialty Start Date End Date Zheng Sharif MD [address] [facility] [address] PCP - General Internal Medicine 03/16/21 Eyewear Consultant Relationship Specialty Start Date End Date Zheng Sharif MD [address] [place] [address] PCP - General Internal Medicine 03/16/21 Team Status: Inactive Member Role Status Dates Dr. Zheng Sharif MD Primary Care Provider Active Dr. Vasiliy Benitez MD Emergency Provider Active Eyewear Consultant Relationship Specialty Start Date End Date Zheng Sharif MD [address] [place] [address] PCP - General Internal Medicine 03/16/21 Eyewear Consultant Relationship Specialty Start Date End Date Zheng Sharif MD [address] [place] [address] PCP - General Internal Medicine 03/16/21 Eyewear Consultant Relationship Specialty Start Date End Date Zheng Sharif MD [address] [place] [address] PCP - General Internal Medicine 03/16/21 Eyewear Consultant Relationship Specialty Start Date End Date Zheng Sharif MD [address] [place] [address] PCP - General Internal Medicine 03/16/21 Eyewear Consultant Relationship Specialty Start Date End Date Zheng Sharif MD [address] [place] [address] PCP - General Internal Medicine 03/16/21 Eyewear Consultant Relationship Specialty Start Date End Date Zheng Sharif MD [address] [place] [address] PCP - General Internal Medicine 03/16/21 Eyewear Consultant Relationship Specialty Start Date End Date Zheng Sharif MD [address] [place] [address] PCP - General Internal Medicine 03/16/21 Eyewear Consultant Relationship Specialty Start Date End Date Zheng Sharif MD [address] [facility] [address] PCP - General Internal Medicine 03/16/21 Eyewear Consultant Relationship Specialty Start Date End Date Zheng Sharif MD [address] [place] [address] PCP - General Internal Medicine 03/16/21 Eyewear Consultant Relationship Specialty Start Date End Date Zheng Sharif MD [address] [place] [address] PCP - General Internal Medicine 03/16/21 Eyewear Consultant Relationship Specialty Start Date End Date Zheng Sharif MD [address] [place] [address] PCP - General Internal Medicine 03/16/21 Eyewear Consultant Relationship Specialty Start Date End Date Zheng Sharif MD [address] [place] [address] PCP - General Internal Medicine 03/16/21 Eyewear Consultant Relationship Specialty Start Date End Date Zheng Sharif MD [address] [place] [address] PCP - General Internal Medicine 03/16/21 June Pineda APRN.CNP [address] [place] [address] Web Art Director Internal Medicine 09/29/24 Eyewear Consultant Relationship Specialty Start Date End Date Zheng Sharif MD [address] [place] [address] PCP - General Internal Medicine 03/16/21 June Pineda APRN.ADJUSTER AND INSPECTOR [address] [place] [address] Web Art Director Internal Medicine 09/29/24 Eyewear Consultant Relationship Specialty Start Date End Date Zheng Sharif MD [address] [place] [address] PCP - General Internal Medicine 03/16/21 June Pineda APRN.ADJUSTER AND INSPECTOR [address] [place] [address] Web Art Director Internal Medicine 09/29/24 Eyewear Consultant Relationship Specialty Start Date End Date Zheng Sharif MD [address] [place] [address] PCP - General Internal Medicine 03/16/21 June Pineda APRN.ADJUSTER AND INSPECTOR [address] [place] [address] Web Art Director Internal Medicine 09/29/24 Eyewear Consultant Relationship Specialty Start Date End Date Zheng Sharif MD [address] [place] [address] PCP - General Internal Medicine 03/16/21 June Pineda APRN.ADJUSTER AND INSPECTOR [address] [place] [address] Web Art Director Internal Medicine 09/29/24 Eyewear Consultant Relationship Specialty Start Date End Date Zheng Sharif MD [address] [place], [place] [address] PCP - General Internal Medicine 03/16/21 Older, June, CUSTOMER ENGAGEMENT MANAGER.ADJUSTER AND INSPECTOR [address] [place], [place] [address] Web Art Director Internal Medicine 09/29/24 Eyewear Consultant Relationship Specialty Start Date End Date Zheng Sharif MD [address] [place], [place] [address] PCP - General Internal Medicine 03/16/21 Older, June, CUSTOMER ENGAGEMENT MANAGER.ADJUSTER AND INSPECTOR [address] [place] [address] Web Art Director Internal Medicine 09/29/24 Team Status: Active Member Role/Relationship Status Dates Dr. Zheng Sharif MD Primary Care Provider Active Team Status: Active Member Role/Relationship Status Dates Dr. Ashutosh Feliz MD Attending Provider Active Start: February 03, 2025 Dr. Ashutosh Feliz MD Referring Provider Active Start: February 03, 2025 Dr. Zheng Sharif MD Primary Care Provider Active Start: February 03, 2025 Team Status: Inactive Member Role/Relationship Status Dates Dr. Ashutosh Feliz MD Attending Provider Active Start: February 10, 2025 End: February 10, 2025 Dr. Zheng Sharif MD Primary Care Provider Active Start: February 10, 2025 End: February 10, 2025 Dr. Zheng Sharif MD Referring Provider Active Start: February 10, 2025 End: February 10, 2025 Team Status: Inactive Member Role/Relationship Status Dates Dr. Zheng Sharif MD Primary Care Provider Active Start: April 24, 2025 End: April 24, 2025 Dr. Linda Sloan DO Attending Provider Active Start: April 24, 2025 End: April 24, 2025 Dr. Linda Sloan DO Referring Provider Active Start: April 24, 2025 End: April 24, 2025 Eyewear Consultant Relationship Specialty Start Date End Date Zheng Sharif MD [address] [place] [address] PCP - General Internal Medicine 03/16/21 June Pineda APRN.ADJUSTER AND INSPECTOR [address] [place] [address] Web Art Director Internal Medicine 09/29/24 Reason for Visit (unrecogniz ed section and [...] MDM 60-74 MINUTES Zheng Sharif MD [address] [place] [address] Referral ID Status Reason Start Date Expiration Date V isits Requested Visits Authorized [id number] Closed PCP Requested Referral 07/12/2022 10/10/2022 1 1 Reason Comments Behavioral Health Social Work Reason Comments Follow Up lower back pain Reason Comments Appointment Reason Comments Well Woman Specialty Diagnoses / Procedures Referred By Contac t Referred To Contact Gynecology Diagnoses Encounter for gynecological examination without abnormal finding Procedures CONSULT TO GYNECOLOGY OFFICE/[facility]IENT [facility] 60-74 MINUTES Zheng Sharif MD [address] [place] [address] Referral ID Status Reason Start Date Expiration Date V isits Requested Visits Authorized [id number] Closed PCP Requested Referral Auto-Generated Referral 09/14/2022 [...] Referred By Contac t Referred To Contact [facility] Diagnoses with uncertain dates in first trimester Procedures OBSTETRIC ULTRASOUND WHI US PREG UTERUS AFTER 1ST TRIMEST GESTATION Rani Yen, EVANGELINA.ADJUSTER AND INSPECTOR [address] [place] [address] [facility] [place] [address] [place] [address] Referral ID Status Reason Start Date Expiration Date V isits Requested Visits Authorized [id number] Closed Auto-Generate d Referral 11/20/2023 11/19/2024 1 1 Reason Onset Date Comments Follow Up F/u from ultraso und Methotrexate Injection 11/23/2023 Reason Comments Physical Reason Comments Follow Up Specialty Diagnoses / Procedures Referred By Contac t Referred To Contact Diagnoses Positive test Procedures CONSULT TO STEREO OPERATOR OFFICE/OUTPATIENT NEW HIGH MDM 60 MINUTES Aaliyah Mendoza, CUSTOMER ENGAGEMENT MANAGER.ADJUSTER AND INSPECTOR [address] [place] [address] Referral ID Status Reason Start Date Expiration Date V isits Requested Visits Authorized [id number] Closed PCP Requested Referral Auto-Generated Referral 11/07/2023 11/06/2024 1 1 Reason Comments Throat Problem Swollen lymph nodes x2 days, possible fevers and ear pain Reason Comments Menstrual Problem Reason Comments Menstrual Problem Reason Comments eary ob spotting Reason Comments New OB Reason Comments PRAF Reason Comments Discussion Reason Comments Post-Op Visit INFORMATION SOURCE (unrecogn ized section and content) DATE CREATED AUTHOR 10/20/2022 [facility] DATE CREATED AUTHOR AUTHOR'S ORGANIZ ATION 02/24/2024 [facility] ([place]) DATE CREATED AUTHOR AUTHOR'S ORGANIZ ATION 05/07/2025 [facility] DATE CREATED AUTHOR AUTHOR'S ORGANIZ ATION 05/12/2025 [facility] DATE CREATED AUTHOR AUTHOR'S ORGANIZ ATION 07/26/2025 [facility] Goals (unrecognized section and content) Goals may be documented in a n alternate section FOR RECORDS PERTAINING TO PATIENTS WHO ARE [...] BE BASED ON THE PRIMARY CLINICAL RECORDS. [facility] provides no warranty or guarantee of the accuracy or completeness of information in this document.
[2025-07-28 19:02] LABS: AST(SGOT) 17 U/L (<=31); Alanine Aminotransfer ALT/SGPT 25 U/L (<=34); Albumin, Serum 4.3 g/dL (3.5-5.0); Alkaline Phosphatase 58 U/L (35-104); Anion Gap 14 (5-15); BUN 5 mg/dL (4-19); BUN/Creat Ratio 6.5 RATIO (10-20); Calcium,Total 9.4 mg/dL (7.6-11.0); Carbon Dioxide 21.1 mmol/L (21.0-32.0); Chloride 105 mmol/L (98-108); Estimated Creatinine Clearance 106.91 ml/min (50-250); Globulin 2.7 g/dL (2.2-4.2); Glucose 97 mg/dL (70-99); Potassium 3.4 mmol/L (3.3-5.1)
[2025-07-28 19:05] LABS: Internal QC Validated? YES +Cl - CLEAR BKGD; Record Kit Lot#, Serum Preg. 980607
[2025-07-28 19:08] LABS: Pregnancy, Serum, hCG Quali. POSITIVE Negative
--- NOTE | 2025-07-28 19:12 | US_ITS ---
PROCEDURE: TRANSVAGINAL W/PREG US 07/28/2025 REASON FOR EXAM: ABD PAIN, HX OF ECTOPIC TECHNIQUE: Procedure Code: USTVAGP Modality: US Procedure: TRANSVAGINAL W/PREG US COMPARISON: None FINDINGS Uterus measures 8.9 x 5.9 x 3.9 cm. No uterine fibroids are noted. Cervix is closed. Endometrial stripe measures 11 mm with scattered few tiny anechoic structures. No intrauterine is noted. Right ovary measures 2.5 x 1.8 x 1.4 cm and left ovary measures 3.6 x 2.52.6 cm. Corpus luteal cysts within the left ovary measuring 1.5 x 2.0 x 1.4 cm and 1.6 x 1.7 x 1.4 cm. Normal vascular flow is noted within bilateral ovaries. No definite evidence of ectopic pregnancies although not entirely excluded. US/Transvaginal w/Preg US IMPRESSION: No definite evidence of ectopic pregnancies although not entirely excluded. No ovarian torsion. Corpus luteal cysts within the left ovary as above. Endometrial stripe measures 11 mm with scattered few tiny anechoic structures. No intrauterine is noted. Reading Location: [id number]
[2025-07-28 19:46] LABS: Color, Urine Straw (Yellow); Glucose, Dipstick Normal (Normal); Ketone-Dipstick Negative (Negative); Leukocyte Esterase-Dipstick Negative /ul (Negative); Nitrite-Dipstick Negative (Negative); Occult Blood-Urine 10 /ul (Negative); Protein-Dipstick 15 mg/dl (Negative); Specific Gravity, Urine 1.010 (1.002-1.030); Urine Bilirubin Dipstick Negative (Negative)
[2025-07-28 19:55] VITALS: BP 129/71; PULSE 80; O2SAT 100
[2025-07-28 20:12] LABS: hCG Titer Quant., Serum 827 mIU/mL (<9 non-preg)
[2025-07-28 20:34] LABS: Red Blood Cells-Urine 0-5 SEEN /hpf (0-5); Squamous Epithelial Cells - UA 0-5 SEEN /hpf (5-10)
[2025-07-28 21:00] VITALS: BP 111/78; PULSE 90; RESP 16; O2SAT 100
[2025-07-28 21:30] VITALS: BP 111/78; PULSE 90; RESP 16; TEMP 37.3; O2SAT 100
== END 2025-07-28 21:36 | disposition home or self-care (01) ==
PROVIDERS: Emergency Provider Emergency Medicine; PCP Internal Medicine; Visit Provider Emergency Medicine
DX: O99.891 Other specified diseases and conditions complicating pregnancy (principal); O99.331 Smoking (tobacco) complicating pregnancy, first trimester; R10.9 Unspecified abdominal pain; F17.290 Nicotine dependence, other tobacco product, uncomplicated; Z3A.00 Weeks of gestation of pregnancy not specified
CPT/HCPCS: 76817; 80053; 81001; 84702; 84703; 85025; 99283; A4216